=== PATIENT | female | born 1970 | race Caucasian/White ===

== ENCOUNTER 2020-03-20 10:11 | Outpatient (REF) | payer OTHER, SELFPAY | END 2020-03-20 10:12 | disposition home or self-care (01) | LOC: HO.LNP 10:11 | PROVIDERS: PCP Internal Medicine; Referring Provider Internal Medicine; Visit Provider Nurse Practitioner Gerontology | DX: E11.22 Type 2 diabetes mellitus with diabetic chronic kidney disease (principal); E11.42 Type 2 diabetes mellitus with diabetic polyneuropathy; Z79.1 Long term (current) use of non-steroidal anti-inflammatories (NSAID); Z71.3 Dietary counseling and surveillance | CPT/HCPCS: 82947; 95250; 99213 ==

== ENCOUNTER 2020-03-23 14:07 | Outpatient (RCR) | payer OTHER, SELFPAY | END 2020-08-20 11:06 | disposition home or self-care (01) | LOC: HO.WCC 14:07 | PROVIDERS: PCP Internal Medicine; Visit Provider Physician Assistant | DX: Z09 Encounter for follow-up examination after completed treatment for conditions other than malignant neoplasm (principal); E11.51 Type 2 diabetes mellitus with diabetic peripheral angiopathy without gangrene; E11.40 Type 2 diabetes mellitus with diabetic neuropathy, unspecified; Z79.4 Long term (current) use of insulin; Z89.429 Acquired absence of other toe(s), unspecified side; Z86.31 Personal history of diabetic foot ulcer | CPT/HCPCS: 11042; 15275; 99212; 99213; Q4186 ==

== ENCOUNTER → 2020-04-03 12:19 | Outpatient (BNVA) | payer OTHER, SELFPAY | PROVIDERS: PCP Internal Medicine; Referring Provider Internal Medicine; Visit Provider Nurse Practitioner Gerontology | DX: E11.22 Type 2 diabetes mellitus with diabetic chronic kidney disease (principal); I12.9 Hypertensive chronic kidney disease with stage 1 through stage 4 chronic kidney disease, or unspecified chronic kidney disease; N18.30 Chronic kidney disease, stage 3 unspecified; E11.42 Type 2 diabetes mellitus with diabetic polyneuropathy; Z79.4 Long term (current) use of insulin; E78.5 Hyperlipidemia, unspecified; E55.9 Vitamin D deficiency, unspecified; E66.01 Morbid (severe) obesity due to excess calories; Z68.43 Body mass index [BMI] 50.0-59.9, adult | CPT/HCPCS: 82947; 99214 ==

== ENCOUNTER 2020-04-09 10:02 | Outpatient (REF) | payer OTHER, SELFPAY ==
[2020-04-09 10:50] LABS: Blood Urea Nitrogen 23 mg/dL (9-16); Estimated Glomerular Filt Rate 37
--- NOTE | 2020-04-09 11:15 | MR_ITS ---
EXAMINATION: MRI OF THE RIGHT FOOT WITH AND WITHOUT CONTRAST CLINICAL INFORMATION: Swelling, infection, rule out osteomyelitis of the great toe. COMPARISON: 08/21/2019 TECHNIQUE: Multiplanar MR imaging was obtained through the right foot on a 1.5 Valentina magnet before and after intravenous administration of Gadavist. 10 mL was administered. FINDINGS: The distal phalanx of the 2nd toe and the entire 3rd toe are surgically absent. There is soft tissue edema signal and swelling at the great toe. Dorsomedially, there is a small focus of subcutaneous gas which may correspond to a site of a wound. No fluid collections are identified in this region. Additional skin wound may be present at the plantar aspect of the distal phalanx. There is mild marrow edema signal in the distal phalanx of the great toe. Bone marrow signal is normal on T1-weighted images without evidence of osteomyelitis. There is a fluid-containing adventitious bursa at the plantar aspect of the 5th metatarsal head measuring 2.5 x 2.5 x 0.5 cm. No significant enhancement in this region on postcontrast images. This is most consistent with adventitious bursitis. There is a small adventitious bursa at the plantar aspect of the 5th metatarsal head without associated fluid signal to indicate bursitis. There is [id number] osteoarthritis of the 5th MTP joint with nonuniform articular cartilage loss and marginal osteophytes. Mild multifocal osteoarthritis is also present in the interphalangeal joints. There is more pronounced, moderate to severe osteoarthritis in the midfoot at the imaged portions of the naviculocuneiform and tarsometatarsal joints. Diffuse fatty atrophy is apparent within the intrinsic foot musculature. No tenosynovitis. MR/MR foot RT wo/w con IMPRESSION: Subcutaneous soft tissue swelling and edema at the great toe with a probable small ulceration distally. No evidence of abscess or underlying osteomyelitis. Adventitious bursitis at the plantar margin of the 5th metatarsal head. Fatty replacement of the intrinsic foot musculature, commonly seen in the setting of diabetes. 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
== END 2020-04-09 10:03 | disposition home or self-care (01) ==
LOC: HO.MRI 10:02
PROVIDERS: PCP Internal Medicine; Visit Provider Plastic Surgery
DX: E11.621 Type 2 diabetes mellitus with foot ulcer (principal)
CPT/HCPCS: 73720; 82565; 84520

== ENCOUNTER 2020-04-21 07:39 | Outpatient (REF) | payer OTHER, SELFPAY ==
--- NOTE | 2020-04-21 08:27 | US_ITS ---
EXAMINATION: US ABDOMEN COMPLETE CLINICAL INFORMATION: Upper abdominal pain. COMPARISON: None TECHNIQUE: Real-time imaging of the abdominal viscera. FINDINGS: PANCREAS: Normal. ABDOMINAL AORTA: The proximal, mid, and distal segments are normal in caliber. INFERIOR VENA CAVA: Visualized portions are normal. LIVER: The liver is enlarged in size with increased echogenicity. The liver contour is normal. Right lobe measures 21.4 cm in length. No focal hepatic lesion. There is no intrahepatic biliary duct dilatation seen. GALLBLADDER: The gallbladder is physiologically distended without evidence of pericholecystic fluid. There is an echogenic stone measuring 6.4 x 2.4 x 3.0 cm. COMMON BILE DUCT: Normal in caliber measuring 0.5 cm in diameter. RIGHT KIDNEY: Normal. No hydronephrosis. No renal calculi or focal parenchymal lesions. The kidney measures 13.1 cm in maximum dimension. LEFT KIDNEY: Normal. No hydronephrosis. No renal calculi or focal parenchymal lesions. The kidney measures 13.5 cm in maximum dimension. SPLEEN: The spleen measures 11.4 cm in maximum dimension. A small splenule measures 1.2 x 1.1 x 1.4 cm. FREE FLUID: None. US/US abdomen complete IMPRESSION: Solitary large impacted gallstone visualized without wall thickening. Enlarged right hepatic lobe. Rest of the abdominal ultrasound is unremarkable.
== END 2020-04-21 07:40 | disposition home or self-care (01) ==
LOC: HO.US 07:39
PROVIDERS: PCP Internal Medicine; Visit Provider Family Medicine
DX: R10.10 Upper abdominal pain, unspecified (principal)
CPT/HCPCS: 76700

== ENCOUNTER → 2020-06-23 08:22 | Outpatient (BNVA) | payer OTHER, SELFPAY | PROVIDERS: PCP Internal Medicine; Visit Provider Nurse Practitioner Gerontology | DX: E11.42 Type 2 diabetes mellitus with diabetic polyneuropathy (principal); E11.22 Type 2 diabetes mellitus with diabetic chronic kidney disease; I12.9 Hypertensive chronic kidney disease with stage 1 through stage 4 chronic kidney disease, or unspecified chronic kidney disease; N18.30 Chronic kidney disease, stage 3 unspecified; E78.5 Hyperlipidemia, unspecified; E55.9 Vitamin D deficiency, unspecified; E66.01 Morbid (severe) obesity due to excess calories; Z68.43 Body mass index [BMI] 50.0-59.9, adult | CPT/HCPCS: 82947; 99212 ==

== ENCOUNTER 2020-06-26 10:17 | Emergency (ER) | payer OTHER, SELFPAY ==
[2020-06-26 10:48] VITALS: BP 139/60; PULSE 73; RESP 16; TEMP 36.7; O2SAT 96; BMI 49.7
--- NOTE | 2020-06-26 11:14 | XR_ITS ---
EXAMINATION: XR KNEE, LEFT CLINICAL INFORMATION: Fall, trauma, pain COMPARISON: None TECHNIQUE: Four views of the left knee. FINDINGS: There is no fracture or dislocation or suprapatellar effusion. Hoffa's fat pad appears normal. There is spurring at the proximal anterior tubercle, near the patellar tendon insertion. There is no joint narrowing or erosive change or definite chondrocalcinosis. XR/XR knee LT 4V IMPRESSION: No fracture or dislocation.
--- NOTE | 2020-06-26 11:14 | XR_ITS ---
EXAMINATION: XR ELBOW, LEFT CLINICAL INFORMATION: Fall, trauma, pain COMPARISON: None TECHNIQUE: AP, lateral, and oblique views of the left elbow. FINDINGS: There is no fracture, dislocation, or elbow capsular effusion. No joint narrowing or erosive change. There is small medial epicondylar spur. XR/XR elbow LT min 3V IMPRESSION: No fracture or dislocation.
--- NOTE | 2020-06-26 11:14 | XR_ITS ---
EXAMINATION: XR SHOULDER, LEFT CLINICAL INFORMATION: Fall, posterior left shoulder pain. COMPARISON: Radiographs left shoulder 09/29/2010 TECHNIQUE: The left shoulder is imaged in 5 views. FINDINGS: There is no fracture or dislocation. The acromioclavicular alignment is normal. Again, there is some spurring from the superior lateral acromium. There are no rotator cuff calcifications. The left lung apex appears clear with no pneumothorax or pleural reaction. XR/XR shoulder LT min 2V IMPRESSION: No fracture or dislocation.
[2020-06-26] MEDS: oxyCODONE HCl Immed Release 5 MG TABLET PO (11:44)
--- NOTE | 2020-06-26 12:26 | ED.FALL ---
HPI - Fall General Chief Complaint: Fall Stated Complaint: fall Time Seen by Provider: 06/26/20 10:53 Source: patient Mode of arrival: ambulatory Limitations: language barrier (Arabic-speaking) History of Present Illness HPI Narrative: 50-year-old female presenting to the ED after mechanical fall prior to arrival when she was going down the steps thought she was at the end of the steps and missed the last step falling forward landing on her left shoulder/elbow/knee. Denies head injury or loss of consciousness or being on any blood thinners. Denies any preceding symptoms prior to the fall such as dizziness, lightheadedness, changes in vision, jaw pain, nausea/vomiting, shortness of breath, chest pain, dyspnea on exertion, orthopnea, and abdominal pain, back pain, diarrhea or any other symptoms complaints or concerns at this time. Related Data Home Medications Medication Instructions Recorded Confirmed aspirin 81 mg tablet,delayed 81 mg PO DAILY 03/20/20 04/03/20 release bupropion HCl 300 mg 24 hr tablet, 300 mg PO QAM 03/20/20 04/03/20 extended release cephalexin 500 mg capsule 500 mg PO BID 03/20/20 04/03/20 cholecalciferol (vitamin D3) 50 2,000 unit PO DAILY cap 03/20/20 04/03/20 mcg (2,000 unit) capsule docusate sodium 100 mg capsule 100 mg PO DAILY 03/20/20 04/03/20 escitalopram oxalate 10 mg tablet 10 mg PO DAILY 03/20/20 04/03/20 gabapentin 300 mg capsule 300 mg PO BID 03/20/20 04/03/20 insulin glargine U-300 conc 300 46 unit SUBCUT DAILY ml 03/20/20 04/03/20 unit/mL (3 mL) subcutaneous pen lisinopril 10 mg tablet 10 mg PO DAILY 03/20/20 04/03/20 omeprazole 20 mg capsule,delayed 20 mg PO DAILY 03/20/20 04/03/20 release oxcarbazepine 300 mg tablet 300 mg PO BID 03/20/20 04/03/20 sennosides 8.6 mg tablet 17.2 mg PO BEDTIME tab 03/20/20 04/03/20 simvastatin 10 mg tablet 10 mg PO DAILY 03/20/20 04/03/20 lancets 33 gauge #100 ea 06/23/20 06/23/20 zolpidem 10 mg tablet 10 mg PO BEDTIME PRN 06/23/20 06/23/20 Previous Rx's Medication Instructions Recorded insulin aspart U-100 100 unit/mL 8 unit SUBCUT TID #15 ml 06/23/20 (3 mL) subcutaneous pen semaglutide 1 mg/dose (2 mg/1.5 1 mg SUBCUT QWEEK #3 ml 06/23/20 mL) subcutaneous pen injector ibuprofen 800 mg PO Q8H PRN #10 tab 06/26/20 oxycodone-acetaminophen [Percocet] 1 tab PO Q6H PRN #10 tab 06/26/20 Allergies Allergy/AdvReac Type Severity Reaction Status Date / Time No Known Allergies Allergy Unknown Verified 06/23/20 08:48 Review of Systems Review of Systems: Constitutional : No Fever, No Chills ENT/Mouth : No Ear Pain, No Hoarseness, No sore throat Eyes: No Eye Pain, No Swelling, No Redness, No Foreign Body Cardiovascular : No Chest Pain, No SOB Respiratory : No Cough, No Dyspnea Gastrointestinal : No Nausea, No Vomiting, No Diarrhea, No abdominal Pain Genitourinary : No Dysuria, No Hematuria Musculoskeletal : + joint pain, No Myalgias, No Joint Swelling Skin : No Skin lacerations, No rash Neuro : No Weakness, No Numbness, No Paresthesias, No Loss of Consciousness, No Dizziness, No Headache Psych : No Anxiety/Panic, No Depression Heme/Lymph: no easy bruising, no Lymphadenopathy Endocrine : No Polyuria, No Polydipsia Yes all other systems are reviewed and are negative [facility] Past Medical History Attestation statement: The following information was validated with the patient. Medical History BMI 50.0-59.9, adult Charcot foot due to diabetes mellitus Chronic kidney disease, stage 3 Depression Diabetic polyneuropathy Hyperlipidemia LDL goal <100 Hypertension Morbid obesity due to excess calories Type 2 diabetes mellitus with chronic kidney disease Vitamin D deficiency Surgical History History of partial amputation of toe History of partial ray amputation of third toe of right foot History of total hysterectomy with bilateral salpingo-oophorectomy (BSO) Hx of colonoscopy Hx of wisdom tooth extraction Family History Family History Father Type 2 diabetes mellitus Mother Type 2 diabetes mellitus Diverticulitis Hypertension Social History Social History Household Members: Spouse and Children Smoking Status: Never smoker Advance Directives: No Advance Directives Information Provided: Yes Physical Exam Vital Signs: Vital Signs: Last Vital Signs Temp 98.0 F 06/26/20 10:48 Pulse 73 06/26/20 10:48 Resp 16 06/26/20 10:48 BP 139/60 06/26/20 10:48 Pulse Ox 96 06/26/20 10:48 Body Mass Index 49.7 Vital signs have been reviewed as normal and appeared to be correct. Blood pressure normal. Heart rate normal. Respiration rate normal. Temperature normal. Oxygen saturation normal. Appearance: Alert. Oriented X3. No acute distress. Head: Normal external exam. Normocephalic. Atraumatic. Able to rotate head bilaterally. Eyes: PERRLA. EOMI. No nystagmus noted. Conjunctiva and sclera normal. Eyelids normal. Corneal reflex normal. ENT: EAC normal. TM's Normal. Hearing normal. Pharynx normal. Uvula midline. tongue midline. Moist mucous membranes. No trismus noted. No drooling noted. No muffled voice noted. Neck: Normal inspection. Neck supple. FROM. No adenopathy. No meningeal signs. CVS: Normal heart rate and rhythm. Heart sound normal. No murmurs noted. Pulses normal throughout. Respiratory: No respiratory distress. Painless inspiration. Breath sounds normal. No wheezes/rales/rhonchi noted. Chest nontender. No accessory muscle usage noted or decreased air movement noted. Abdomen: Soft and nontender. Bowel sounds normal in all 4 quadrants. No distention noted. No organomegaly noted. No visible injury noted. Back: No CVA tenderness. Full range of motion noted. Skin: Skin warm and dry. Normal skin color. Normal skin turgor. No rashes/lesions/lacerations noted. Extremities: Patient with mild tenderness to palpation to left shoulder. Patient has full range of motion of the left shoulder/AC joint. No obvious deformities. Patient tender to palpation to left proximal forearm/elbow patient has full range of motion. No obvious deformities noted. Patient with mild tenderness to palpation to left knee at the patellar joint with mild soft tissue swelling and ecchymosis noted. No obvious deformities and full range of motion is noted. Patient has a normal steady gait. Otherwise all other Extremities exhibit normal range of motion and nontender. Able to shrug shoulders bilaterally and keep up against resistance. Neuro: Oriented X 3. No motor deficit. No sensory deficit. Reflexes normal. Moving all extremities. No focal motor deficits. Cranial nerves II-XI intact bilaterally. Facial strength normal. Normal cognition. Speech normal. Gait normal. Strength 5/5 throughout. No pronator drift. No tremor noted. No fasciculations noted. Muscle tone normal throughout. No asterixis noted. Pxecke-ta-[id number] test normal. Heel to menchaca test normal. Tandem gait normal. Does not sway with eyes open. Romberg test negative. No rigidity noted. Course Course Course Narrative: 11:15am - 50-year-old female presenting to the ED after mechanical fall prior to arrival when she was going down the steps thought she was at the end of the steps and missed the last step falling forward landing on her left shoulder/elbow/knee. - Will obtain Xrays to left shoulder/elbow/forearm and knee provide 5 mg of oxycodone as patient requested for pain and re-evaluate. Reevaluation(s) Reevaluation #1: - x-ray to left shoulder/elbow/forearm and knee all within normal limits no evidence of any fractures patient most likely she has sprains will DC home with symptomatic treatment along with instructions return if any new or worsening symptoms to follow up with primary care provider. Patient's and agrees the plan. Time: 12:33 MDM - Fall Medical Records Attestation: I reviewed the patient's medical records. Imaging Data left shoulder : Attestation: I personally reviewed and interpreted this imaging study as follows: Radiologist's impression: XR/XR shoulder LT min 2V IMPRESSION: No fracture or dislocation. left elbow: Attestation: I personally reviewed and interpreted this imaging study as follows: Radiologist's impression: XR/XR elbow LT min 3V IMPRESSION: No fracture or dislocation. left knee: Attestation: I personally reviewed and interpreted this imaging study as follows: Radiologist's impression: XR/XR knee LT 4V IMPRESSION: No fracture or dislocation. Discharge Plan Discharge Clinical Impression: Fall, Sprain of left shoulder, Sprain of elbow, left, Left knee sprain, Contusion of knee, left Patient Disposition: Home, Self-Care Instructions: Sprain (ED), Musculoskeletal Pain (ED) Prescriptions: New ibuprofen 800 mg tablet 800 mg PO Q8H PRN (Reason: pain) Qty: 10 RF: 0 oxycodone-acetaminophen [Percocet] 5-325 mg tablet 1 tab PO Q6H PRN (Reason: pain) Qty: 10 RF: 0 No Action (DME) lancets 33 gauge misc See Rx Instructions ea .ROUTE .MEDSUPPLY Qty: 100 RF: 0 zolpidem 10 mg tablet 10 mg PO BEDTIME PRN (Reason: insomnia) RF: 0 insulin aspart U-100 [Novolog Flexpen U-100 Insulin] 100 unit/mL (3 mL) insulin pen 8 unit subcut TID Qty: 15 RF: 3 Ozempic 1 mg/dose (2 mg/1.5 mL) pen injector 1 mg subcut QWEEK Qty: 3 RF: 3 Toujeo Max U-300 SoloStar 300 unit/mL (3 mL) insulin pen 46 unit subcut DAILY RF: 0 cholecalciferol (vitamin D3) 50 mcg (2,000 unit) capsule 2,000 unit PO DAILY RF: 0 docusate sodium [DOK] 100 mg capsule 100 mg PO DAILY RF: 0 sennosides [Senna Laxative] 8.6 mg tablet 17.2 mg PO BEDTIME RF: 0 oxcarbazepine 300 mg tablet 300 mg PO BID RF: 0 omeprazole 20 mg capsule,delayed release(DR/EC) 20 mg PO DAILY RF: 0 simvastatin 10 mg tablet 10 mg PO DAILY RF: 0 escitalopram oxalate 10 mg tablet 10 mg PO DAILY RF: 0 bupropion HCl 300 mg tablet extended release 24 hr 300 mg PO QAM RF: 0 aspirin 81 mg tablet,delayed release (DR/EC) 81 mg PO DAILY RF: 0 gabapentin 300 mg capsule 300 mg PO BID RF: 0 lisinopril 10 mg tablet 10 mg PO DAILY RF: 0 cephalexin 500 mg capsule 500 mg PO BID RF: 0 Referrals: CastañedaEdwin Low MD [Primary Care Provider] - 2 days Print Language: Arabic
[2020-06-26 13:27] VITALS: BP 139/73; PULSE 71; RESP 16; TEMP 36.3
== END 2020-06-26 13:20 | disposition home or self-care (01) ==
PROVIDERS: Emergency Provider Emergency Medicine; PCP Internal Medicine
DX: S43.402A Unspecified sprain of left shoulder joint, initial encounter (principal); S53.402A Unspecified sprain of left elbow, initial encounter; S83.92XA Sprain of unspecified site of left knee, initial encounter; S80.02XA Contusion of left knee, initial encounter; I12.9 Hypertensive chronic kidney disease with stage 1 through stage 4 chronic kidney disease, or unspecified chronic kidney disease; E11.22 Type 2 diabetes mellitus with diabetic chronic kidney disease; N18.30 Chronic kidney disease, stage 3 unspecified; W10.9XXA Fall (on) (from) unspecified stairs and steps, initial encounter; Y93.9 Activity, unspecified; Y92.9 Unspecified place or not applicable; Y99.9 Unspecified external cause status; Z79.899 Other long term (current) drug therapy
CPT/HCPCS: 73030; 73080; 73564; 99283; 99284

== ENCOUNTER → 2020-07-21 09:36 | Outpatient (BNVA) | payer OTHER, SELFPAY | PROVIDERS: PCP Internal Medicine; Visit Provider Nurse Practitioner Gerontology | DX: Z76.89 Persons encountering health services in other specified circumstances (principal) | CPT/HCPCS: Q3014 ==

== ENCOUNTER → 2020-07-29 12:25 | Outpatient (BNVA) | payer OTHER, SELFPAY | PROVIDERS: PCP Internal Medicine; Visit Provider Dietitian, Registered ==

== ENCOUNTER → 2020-08-14 09:47 | Outpatient (BNVA) | payer OTHER, SELFPAY | PROVIDERS: PCP Internal Medicine; Visit Provider Dietitian, Registered ==

== ENCOUNTER 2020-08-28 07:46 | Outpatient (REF) | payer OTHER, SELFPAY ==
--- NOTE | ~2020-08-28 | MM_ITS ---
EXAMINATION: MM SCREENING DIGITAL BREAST TOMOSYNTHESIS, BILATERAL CLINICAL INFORMATION: Screening. Asymptomatic. Family history breast cancer maternal grandmother and aunt, paternal grandmother and aunt. The lifetime risk of breast cancer based on the Tyrer-Cuzick Model is 18%. COMPARISON: Mammography: 11/13/2018, 10/31/2017 TECHNIQUE: Digital breast tomosynthesis is performed in both the craniocaudal and mediolateral oblique views along with computer-aided detection (CAD). Synthesized 2D images are generated from the tomosynthesis. Additional bilateral CC views are provided. FINDINGS: The breasts are almost entirely fatty (ACR BI-RADS breast composition Category a). There are no significant masses, abnormal calcifications, or other abnormalities. The axilla and skin contours are unremarkable. MM/MM tomosynthesis screening BI IMPRESSION: No mammographic evidence of malignancy. ASSESSMENT: BI-RADS 1: Negative RECOMMENDATION: 1. Routine annual mammography screening. 2. The lifetime risk of breast cancer based on the Tyrer-Cuzick Model is 18%. Additional annual adjunct screening with breast MRI may be of benefit in women with a risk score of 20% or greater. This patient's information was entered into a reminder system with a target due date for their next mammogram.
== END 2020-08-28 07:47 | disposition home or self-care (01) ==
LOC: HO.MAMMO 07:46
PROVIDERS: PCP Internal Medicine; Visit Provider Internal Medicine
DX: Z12.31 Encounter for screening mammogram for malignant neoplasm of breast (principal)
CPT/HCPCS: 77063; 77067

== ENCOUNTER → 2020-09-01 10:39 | Outpatient (BNVA) | payer OTHER, SELFPAY | PROVIDERS: PCP Internal Medicine; Visit Provider Nurse Practitioner Gerontology | DX: I12.9 Hypertensive chronic kidney disease with stage 1 through stage 4 chronic kidney disease, or unspecified chronic kidney disease (principal); E11.42 Type 2 diabetes mellitus with diabetic polyneuropathy; E11.22 Type 2 diabetes mellitus with diabetic chronic kidney disease; N18.30 Chronic kidney disease, stage 3 unspecified; E66.01 Morbid (severe) obesity due to excess calories; Z68.42 Body mass index [BMI] 45.0-49.9, adult; E78.5 Hyperlipidemia, unspecified; E55.9 Vitamin D deficiency, unspecified; Z79.4 Long term (current) use of insulin | CPT/HCPCS: 82947; 99212 ==

== ENCOUNTER → 2020-09-11 10:42 | Outpatient (BNVA) | payer OTHER, SELFPAY | PROVIDERS: PCP Internal Medicine; Visit Provider Dietitian, Registered ==

== ENCOUNTER → 2020-10-22 09:51 | Outpatient (BNVA) | payer OTHER, SELFPAY | PROVIDERS: PCP Internal Medicine; Visit Provider Dietitian, Registered | DX: E11.22 Type 2 diabetes mellitus with diabetic chronic kidney disease (principal); N18.30 Chronic kidney disease, stage 3 unspecified; Z79.4 Long term (current) use of insulin | CPT/HCPCS: 97803 ==

== ENCOUNTER → 2020-11-18 08:41 | Outpatient (BNVA) | payer OTHER, SELFPAY | PROVIDERS: PCP Internal Medicine; Visit Provider Nurse Practitioner Gerontology | DX: E11.22 Type 2 diabetes mellitus with diabetic chronic kidney disease (principal); I12.9 Hypertensive chronic kidney disease with stage 1 through stage 4 chronic kidney disease, or unspecified chronic kidney disease; N18.30 Chronic kidney disease, stage 3 unspecified; E11.42 Type 2 diabetes mellitus with diabetic polyneuropathy; E78.5 Hyperlipidemia, unspecified; E55.9 Vitamin D deficiency, unspecified; E66.01 Morbid (severe) obesity due to excess calories; Z79.4 Long term (current) use of insulin; Z68.42 Body mass index [BMI] 45.0-49.9, adult | CPT/HCPCS: 82947; 99212 ==

== ENCOUNTER 2020-12-24 08:38 | Outpatient (REF) | payer OTHER, SELFPAY ==
[2020-12-24 10:31] LABS: Alanine Aminotransferase 16 U/L (0-31); Alkaline Phosphatase 99 U/L (39-117); Anion Gap 11 (12-20); Aspartate Amino Transferase 21 U/L (5-31); Bilirubin Total 0.3 mg/dL (0.0-1.0); Blood Urea Nitrogen 25 mg/dL (9-16); Carbon Dioxide 28 mmol/L (22-29); Chloride 104 mmol/L (96-108); Cholesterol 169 mg/dL; Estimated Glomerular Filt Rate 38; Glucose Fasting 138 mg/dL (60-99); HDL Cholesterol 67 mg/dL; LDL Cholesterol Calculated 86 mg/dl; Potassium 4.4 mmol/L (3.3-5.1); Sodium 139 mmol/L (135-145); Total Protein 7.1 g/dL (6.5-8.0); Triglycerides 83 mg/dL
[2020-12-24 10:32] LABS: Creatinine Urine 186.98 mg/dL; Microalbum/Creatinine Ratio Ur 10.6 ug/mg cr
[2020-12-25 07:06] LABS: LDL Cholesterol Direct 87 mg/dL (<100)
== END 2020-12-24 08:39 | disposition home or self-care (01) ==
LOC: HO.LAB 08:38
PROVIDERS: PCP Internal Medicine; Visit Provider Nurse Practitioner Gerontology
DX: E11.22 Type 2 diabetes mellitus with diabetic chronic kidney disease (principal); N18.9 Chronic kidney disease, unspecified
CPT/HCPCS: 36415; 80053; 80061; 82043; 83721

== ENCOUNTER → 2021-02-24 08:23 | Outpatient (BNVA) | payer OTHER, SELFPAY | PROVIDERS: PCP Internal Medicine; Visit Provider Nurse Practitioner Gerontology | DX: E11.22 Type 2 diabetes mellitus with diabetic chronic kidney disease (principal); I12.9 Hypertensive chronic kidney disease with stage 1 through stage 4 chronic kidney disease, or unspecified chronic kidney disease; N18.30 Chronic kidney disease, stage 3 unspecified; E11.42 Type 2 diabetes mellitus with diabetic polyneuropathy; E78.5 Hyperlipidemia, unspecified; E55.9 Vitamin D deficiency, unspecified; E66.01 Morbid (severe) obesity due to excess calories; Z68.42 Body mass index [BMI] 45.0-49.9, adult; Z79.4 Long term (current) use of insulin | CPT/HCPCS: 82947; 83036; 99212 ==

== ENCOUNTER → 2021-03-11 10:07 | Outpatient (BNVA) | payer OTHER, SELFPAY | PROVIDERS: PCP Internal Medicine; Visit Provider Surgery | DX: K80.20 Calculus of gallbladder without cholecystitis without obstruction (principal); E66.01 Morbid (severe) obesity due to excess calories; Z68.42 Body mass index [BMI] 45.0-49.9, adult | CPT/HCPCS: 99212 ==

== ENCOUNTER → 2021-03-22 09:37 | Outpatient (BNVA) | payer OTHER, SELFPAY | PROVIDERS: PCP Internal Medicine; Visit Provider Dietitian, Registered | DX: E11.22 Type 2 diabetes mellitus with diabetic chronic kidney disease (principal); N18.30 Chronic kidney disease, stage 3 unspecified; Z79.4 Long term (current) use of insulin | CPT/HCPCS: 97803 ==

== ENCOUNTER → 2021-05-27 08:38 | Outpatient (BNVA) | payer OTHER, SELFPAY | PROVIDERS: PCP Internal Medicine; Visit Provider Dietitian, Registered | DX: E11.22 Type 2 diabetes mellitus with diabetic chronic kidney disease (principal); N18.30 Chronic kidney disease, stage 3 unspecified; Z79.4 Long term (current) use of insulin | CPT/HCPCS: 97803 ==

== ENCOUNTER → 2021-07-02 08:30 | Outpatient (BNVA) | payer OTHER, SELFPAY | PROVIDERS: PCP Internal Medicine; Visit Provider Nurse Practitioner Gerontology | DX: E11.22 Type 2 diabetes mellitus with diabetic chronic kidney disease (principal); I12.9 Hypertensive chronic kidney disease with stage 1 through stage 4 chronic kidney disease, or unspecified chronic kidney disease; N18.30 Chronic kidney disease, stage 3 unspecified; E11.42 Type 2 diabetes mellitus with diabetic polyneuropathy; E78.5 Hyperlipidemia, unspecified; E55.9 Vitamin D deficiency, unspecified; E66.01 Morbid (severe) obesity due to excess calories; Z79.4 Long term (current) use of insulin; Z68.42 Body mass index [BMI] 45.0-49.9, adult | CPT/HCPCS: Q3014 ==

== ENCOUNTER → 2021-08-18 09:06 | Outpatient (BNVA) | payer OTHER, SELFPAY | PROVIDERS: PCP Internal Medicine; Visit Provider Nurse Practitioner Gerontology | DX: E11.42 Type 2 diabetes mellitus with diabetic polyneuropathy (principal); E11.22 Type 2 diabetes mellitus with diabetic chronic kidney disease; I12.9 Hypertensive chronic kidney disease with stage 1 through stage 4 chronic kidney disease, or unspecified chronic kidney disease; N18.30 Chronic kidney disease, stage 3 unspecified; E78.5 Hyperlipidemia, unspecified; E55.9 Vitamin D deficiency, unspecified; E66.01 Morbid (severe) obesity due to excess calories; Z79.4 Long term (current) use of insulin; Z68.42 Body mass index [BMI] 45.0-49.9, adult | CPT/HCPCS: 82947; 83036; 99212 ==

== ENCOUNTER 2021-08-30 12:09 | Outpatient (REF) | payer OTHER, SELFPAY ==
--- NOTE | ~2021-08-30 | MM_ITS ---
EXAMINATION: MM SCREENING DIGITAL BREAST TOMOSYNTHESIS, BILATERAL CLINICAL INFORMATION: Screening. Asymptomatic. The lifetime risk of breast cancer based on the Tyrer-Cuzick Model is 25%. COMPARISON: Mammography: 08/28/2020, 11/13/2018, 10/31/2017 TECHNIQUE: Digital breast tomosynthesis is performed in both the craniocaudal and mediolateral oblique views along with computer-aided detection (CAD). Synthesized 2D images are generated from the tomosynthesis. Additional bilateral CC and additional left MLO views are provided. FINDINGS: The breasts are almost entirely fatty (ACR BI-RADS breast composition Category a). There are no significant masses, abnormal calcifications, or other abnormalities. There is a small node overlying the posterior 1:00 right breast similar to 2018. Bilateral axilla and skin contours are unremarkable. MM/MM tomosynthesis screening BI IMPRESSION: No mammographic evidence of malignancy. ASSESSMENT: BI-RADS 2: Benign RECOMMENDATION: 1. Routine annual mammography screening. 2. The lifetime risk of breast cancer based on the Tyrer-Cuzick Model is 25%. Additional annual adjunct screening with breast MRI may be of benefit in women with a risk score of 20% or greater. This patient's information was entered into a reminder system with a target due date for their next mammogram.
== END 2021-08-30 12:10 | disposition home or self-care (01) ==
LOC: HO.MAMMO 12:09
PROVIDERS: PCP Internal Medicine; Visit Provider Internal Medicine
DX: Z12.31 Encounter for screening mammogram for malignant neoplasm of breast (principal)
CPT/HCPCS: 77063; 77067

== ENCOUNTER → 2021-09-17 08:48 | Outpatient (BNVA) | payer OTHER, SELFPAY | PROVIDERS: PCP Internal Medicine; Visit Provider Registered Nurse Diabetes Educator | DX: Z13.89 Encounter for screening for other disorder (principal) ==

== ENCOUNTER → 2021-10-22 09:13 | Outpatient (BNVA) | payer OTHER, SELFPAY | PROVIDERS: PCP Internal Medicine; Visit Provider Registered Nurse Diabetes Educator | DX: E11.22 Type 2 diabetes mellitus with diabetic chronic kidney disease (principal); N18.30 Chronic kidney disease, stage 3 unspecified; Z79.4 Long term (current) use of insulin | CPT/HCPCS: 99211 ==

== ENCOUNTER → 2021-11-23 11:21 | Outpatient (BNVA) | payer OTHER, SELFPAY | PROVIDERS: PCP Internal Medicine; Visit Provider Registered Nurse Diabetes Educator | DX: E11.22 Type 2 diabetes mellitus with diabetic chronic kidney disease (principal); N18.30 Chronic kidney disease, stage 3 unspecified; Z79.4 Long term (current) use of insulin | CPT/HCPCS: 99211 ==

== ENCOUNTER 2021-11-24 09:35 | Outpatient (REF) | payer OTHER, SELFPAY ==
--- NOTE | ~2021-11-24 | XR_ITS ---
EXAMINATION: BILATERAL WRIST X-RAY CLINICAL INFORMATION: Pain COMPARISON: None TECHNIQUE: 4 views of both wrists FINDINGS: There is borderline bilateral ulnar minus variance. Bone alignment is normal. No fracture or dislocation is seen. Joint spaces and soft tissues are normal. XR/XR wrist RT 2V IMPRESSION: Borderline bilateral ulnar minus variance. Otherwise unremarkable exam.
--- NOTE | ~2021-11-24 | XR_ITS ---
EXAMINATION: BILATERAL WRIST X-RAY CLINICAL INFORMATION: Pain COMPARISON: None TECHNIQUE: 4 views of both wrists FINDINGS: There is borderline bilateral ulnar minus variance. Bone alignment is normal. No fracture or dislocation is seen. Joint spaces and soft tissues are normal. XR/XR wrist LT 2V IMPRESSION: Borderline bilateral ulnar minus variance. Otherwise unremarkable exam.
--- NOTE | ~2021-11-24 | XR_ITS ---
EXAMINATION: XR FOOT, RIGHT CLINICAL INFORMATION: Pain COMPARISON: Previous right foot x-ray December 2019 TECHNIQUE: AP, lateral, and oblique views of the right foot. FINDINGS: There is amputation of the third toe. There is partial amputation of the distal second toe. Bone alignment is normal. No fracture or dislocation is seen. No x-ray evidence of osteomyelitis is seen. There are degenerative changes of the midfoot. There are large calcaneal spurs. XR/XR foot RT 2V IMPRESSION: Severe arthritis of the midfoot. Large calcaneal spurs. Amputation of the third toe and partial amputation of the second toe.
== END 2021-11-24 09:36 | disposition home or self-care (01) ==
LOC: HO.XRAY 09:35
PROVIDERS: PCP Internal Medicine; Visit Provider Internal Medicine
DX: M79.671 Pain in right foot (principal); M25.531 Pain in right wrist; M25.532 Pain in left wrist
CPT/HCPCS: 73100; 73620

== ENCOUNTER → 2022-02-22 11:16 | Outpatient (BNVA) | payer OTHER, SELFPAY | PROVIDERS: PCP Internal Medicine; Visit Provider Registered Nurse Diabetes Educator | DX: E11.22 Type 2 diabetes mellitus with diabetic chronic kidney disease (principal); N18.30 Chronic kidney disease, stage 3 unspecified; Z79.4 Long term (current) use of insulin | CPT/HCPCS: 99211 ==

== ENCOUNTER → 2022-04-05 08:55 | Outpatient (BNVA) | payer OTHER, SELFPAY | PROVIDERS: PCP Internal Medicine; Visit Provider Registered Nurse Diabetes Educator | DX: E11.22 Type 2 diabetes mellitus with diabetic chronic kidney disease (principal); E11.42 Type 2 diabetes mellitus with diabetic polyneuropathy; N18.30 Chronic kidney disease, stage 3 unspecified; Z79.4 Long term (current) use of insulin | CPT/HCPCS: 99211 ==

== ENCOUNTER → 2022-05-10 21:12 | Outpatient (REF) | payer OTHER, SELFPAY | LOC: HO.SL 21:12 | PROVIDERS: PCP Internal Medicine; Visit Provider Internal Medicine | DX: Z13.89 Encounter for screening for other disorder (principal) ==

== ENCOUNTER → 2022-06-01 11:57 | Outpatient (BNVA) | payer OTHER, SELFPAY | PROVIDERS: PCP Internal Medicine; Visit Provider Registered Nurse Diabetes Educator | DX: E11.22 Type 2 diabetes mellitus with diabetic chronic kidney disease (principal); N18.30 Chronic kidney disease, stage 3 unspecified; Z79.4 Long term (current) use of insulin | CPT/HCPCS: 99211 ==

== ENCOUNTER → 2022-06-30 11:27 | Outpatient (BNVA) | payer OTHER, SELFPAY | PROVIDERS: PCP Internal Medicine; Visit Provider Registered Nurse Diabetes Educator | DX: E11.22 Type 2 diabetes mellitus with diabetic chronic kidney disease (principal); N18.30 Chronic kidney disease, stage 3 unspecified; Z79.4 Long term (current) use of insulin | CPT/HCPCS: 99211 ==

== ENCOUNTER → 2022-08-10 12:33 | Outpatient (BNVA) | payer OTHER, SELFPAY | PROVIDERS: PCP Internal Medicine; Visit Provider Internal Medicine Cardiovascular Disease | DX: R07.9 Chest pain, unspecified (principal); I10 Essential (primary) hypertension | CPT/HCPCS: 93005; 99202 ==

== ENCOUNTER → 2022-08-26 09:51 | Outpatient (REF) | payer OTHER, SELFPAY ==
--- NOTE | 2022-08-26 09:54 | CA_ITS ---
Transthoracic Echocardiogram Patient (Last, First, Middle): Dora Fernandez, Gender: Female Date of : 1970 Age: 52 Procedure Date: 08/26/2022 Procedure Type: Transthoracic Echocardiogram Location: OP Height: 175.26 cm Weight: 151.5 kg BSA: 2.57 m2 Heart Rate: 88 bpm BP: 122 / 84 mmHg [employer]p [employer]: ANTON Referring MD: Simon Penaloza MD Symptoms: R07.9 - Chest pain, unspecified Study Quality: Adequate w contrast ECG Rhythm: Sinus Conclusions: - The left ventricular systolic function is normal. The calculated ejection fraction is 56% by biplane method. - No obvious valvular pathology seen on this study. Findings Procedure Information Contrast agent, definity, is being given per protocol without apparent complications. Left Ventricle Normal left ventricular cavity size. There is normal left ventricular wall thickness. The left ventricular systolic function is normal. The calculated ejection fraction is 56% by biplane method. There is no evidence of regional wall motion abnormalities. Diastolic function is normal for age. Right Ventricle The right ventricle was not well visualized. There is normal right ventricular systolic function. Atria Both atria are normal in size. Aortic Valve There is a normal trileaflet aortic valve. There is no aortic valve stenosis. There is no aortic valve regurgitation. Mitral Valve The mitral valve appears normal. There is no mitral valve regurgitation. There is no mitral valve stenosis. Pulmonic Valve The pulmonic valve is likely normal. Tricuspid Valve There is trace tricuspid valve regurgitation. There is no evidence of pulmonary hypertension. Great Vessels The asc aorta is normal in size. Venous The inferior vena cava is normal in size and collapses greater than 50% with inspiration. Pericardium/Pleural There is no evidence of pericardial effusion. Prior Study Comparison No significant change compared to prior study dated: 11/20/2006. Recommendations, Care & Conclusions No obvious valvular pathology seen on this study. Measurements 2D Linear Measurements IVSd: 0.75 0.6-0.9/0.6-1.0 cm LVIDd: 5.92 3.9-5.3/4.2-5.9 cm LVIDd Index: 2.30 2.4-3.2/2.2-3.1 cm/m2 LVIDs: 4.18 2.0-3.6 cm LVPWd: 0.89 0.7-1.1 cm LA Diam: 3.40 2.7-3.8/3.0-4.0 cm LAIDs Index: 1.32 1.5-2.3 cm/m2 LV Mass: 234.48 67-162/88-224 g LV Mass Index: 91.24 43-95/49-115 g/m2 LVOT Diam: 2.20 3.0+(-)1.3 cm 2D Systolic Function EF 4C: 51.30 >55% EF 2C: 56.20 >55% EF BiP: 55.90 >55% Mitral Valve MV Pk E: 0.97 MV PK A: 0.84 MV Decel Time: 210.00 E/A: 1.20 E'Lateral: 12.90 E'Medial: 9.68 E/E' Med: 10.00 E/E' Lat: 7.50 PHT: 62.00 MVA PHT: 3.55 Decel [place]: 4.60 Aortic Valve AoV Pk Osorio: 1.34 AoV Mn Osorio: 0.97 AoV VTI: 0.31 AoV Pk Grad: 7.00 Aov Mn Grad: 4.00 ODILIA Cont.VTI: 2.89 LVOT LVOT Pk Osorio: 1.01 LVOT Mn Osorio: 0.73 LVOT VTI: 0.24 LVOT Pk Grad: 4.00 LVOT Mn Grad: 2.00 LVOT Diam: 2.20 LVOT Area: 3.80 Diastolic Function MV Pk E: 0.97 MV Pk A: 0.84 E/A: 1.20 E'Medial: 9.68 E/E' Med: 10.00 E' Laterial: 12.90 E/E' Lat: 7.50 Right Ventricle TAPSE (mm): 23.10 TVS' Osorio: 10.30 Tricuspid Valve RA Press: 3.00 Great Vessels Aorta Sinus of Valsalva: 3.10 2.0-3.5 cm Ao Asc: 2.90 2.1-3.4 cm Updated in Other Vendor System with Status of Final Pete Mckeon MD electronically signed on 08/28/2022 11:40:11 AM with status of Final
== END ==
LOC: HO.CARD 09:51
PROVIDERS: Visit Provider Internal Medicine Cardiovascular Disease
DX: R07.9 Chest pain, unspecified (principal)
CPT/HCPCS: 93306; Q9957

== ENCOUNTER → 2022-09-01 09:56 | Outpatient (REF) | payer OTHER, SELFPAY ==
--- NOTE | ~2022-09-01 | NM_ITS ---
Myocardial perfusion study Indication: Exertional chest pain to evaluate for myocardial ischemia Technique: The patient was brought in for a Lexiscan perfusion study on 09/01/2022. Patient performed low-level exercise and was injected 0.4 mg of Lexiscan intravenously. Within a minute of injection, 35 mCi of sestamibi was given intravenously. Images were obtained using the SPECT gamma camera interlaced with the gating device. Images were obtained in supine position. Resting perfusion study was performed on 09/02/2022. Patient was administered 35 mCi of sestamibi intravenously at rest. Images were then obtained in supine position. Images obtained with and without CT attenuation. Total DLP 177 mGy-cm. Images were processed with the software and compared side to side in short axis, horizontal long axis and vertical long axis views. Findings: The stress perfusion study showed large area of mildly to moderately reduced uptake in the anterior, apical, apical and anterolateral wall of the LV myocardium. Remainder of the LV myocardium is normally perfused. Attenuation corrected images also shows mildly reduced uptake in the anterior, anteroseptal and anterolateral wall of the LV myocardium.. The gated study shows normal LV systolic function with calculated LVEF of 46%. LV cavity is mildly dilated size. The gated study shows normal systolic wall thickening and contraction of segments. Resting study shows normal uptake of radiotracer in all segments of LV myocardium on non attenuated as well as attenuated corrected images. Gating at rest reveals normal systolic wall motion with ejection fraction at 55%. The findings are consistent with large area of mild to moderate intensity LAD territory ischemia. NM/NM anitha perf SPECT rest & str Impression: 1. Myocardial perfusion imaging study shows proximal LAD territory ischemia 2. Gated LVEF is 46% with stress and 51% with rest 3. Transient ischemic dilatation present EKG is nondiagnostic for ischemia
--- NOTE | 2022-09-01 10:00 | CA_ITS ---
Acquisition Time: 2022-09-01 10:42:06 Total Exercise Time: 00:02:00 Test Indications: CP Medications: SEE H Protocol: LEXISCAN Max HR: 117 BPM 70% of Pred: 166 BPM Max BP: 118/062 mmHG Max Work Load: 1.0 METS Pharmacological stress test with Lexiscan injection while sitting and kickinbg legs, without anignal symptoms, with isolated PACs with brief runs of atrial tach noted, normotensive response to injection, with non-diagnositic EKG for ischemia. In recovery frequent PACs noted, treated with Aminophylline 75mg IVP to reverse Lexiscan without improvement. Nuclear images pending. Test reviewed with Dr. Gordillo. Referred By: Simon Penaloza Overread By: VALARIE PRIDE
== END ==
LOC: HO.CARD 09:56
PROVIDERS: Visit Provider Internal Medicine Cardiovascular Disease
DX: R07.9 Chest pain, unspecified (principal)
CPT/HCPCS: 78452; 93017; A9500; J0280; J2785

== ENCOUNTER → 2022-09-05 15:29 | Outpatient (BNVA) | payer OTHER, SELFPAY | PROVIDERS: PCP Internal Medicine; Visit Provider Internal Medicine Cardiovascular Disease | DX: R07.9 Chest pain, unspecified (principal) | CPT/HCPCS: 99212 ==

== ENCOUNTER 2022-09-06 09:38 | Outpatient (REF) | payer OTHER, SELFPAY ==
[2022-09-06 10:35] LABS: Hematocrit 39.8 % (37.0-47.0); Hemoglobin 12.6 g/dl (12.0-16.0); Mean Corpuscular HGB Conc 31.7 g/dl (31.0-35.0); Mean Corpuscular Hemoglobin 27.3 pg (27.0-33.0); Mean Corpuscular Volume 86.3 fL (80.0-98.0); Mean Platelet Volume 11.3 fL (9.4-12.3); Platelet Count 237 X10*3/uL (160-400); Red Blood Count 4.61 X10*6/uL (4.20-5.50); Red Cell Distribution Width 12.7 % (11.0-16.0); White Blood Count 7.4 X10*3/uL (4.8-10.8)
[2022-09-06 10:42] LABS: INTERNATIONAL NORM RATIO 0.9 (0.9-1.1); Prothrombin Time 10.4 SEC (10.0-13.1)
[2022-09-06 11:42] LABS: Anion Gap 14 (12-20); Blood Urea Nitrogen 24 mg/dL (9-16); Calcium 9.2 mg/dL (8.4-10.2); Carbon Dioxide 27 mmol/L (22-29); Chloride 104 mmol/L (96-108); Estimated Glomerular Filt Rate 42; Glucose Random 191 mg/dL (60-115); Potassium 4.6 mmol/L (3.3-5.1); Sodium 140 mmol/L (135-145)
[2022-09-06 12:41] LABS: Creatinine Urine 163.52 mg/dL; Total Protein Urine Random < 7 mg/dL (<12)
== END 2022-09-06 09:39 | disposition home or self-care (01) ==
LOC: HO.LAB 09:38
PROVIDERS: Absent Provider Internal Medicine Cardiovascular Disease; PCP Internal Medicine; Visit Provider Internal Medicine Hypertension Specialist
DX: R07.9 Chest pain, unspecified (principal); N18.31 Chronic kidney disease, stage 3a
CPT/HCPCS: 36415; 80048; 84156; 85027; 85610

== ENCOUNTER → 2022-09-26 15:19 | Outpatient (BNVA) | payer OTHER, SELFPAY | PROVIDERS: PCP Internal Medicine; Visit Provider Nurse Practitioner Family | DX: R07.9 Chest pain, unspecified (principal); E78.5 Hyperlipidemia, unspecified; E11.22 Type 2 diabetes mellitus with diabetic chronic kidney disease; I12.9 Hypertensive chronic kidney disease with stage 1 through stage 4 chronic kidney disease, or unspecified chronic kidney disease; N18.30 Chronic kidney disease, stage 3 unspecified; Z79.4 Long term (current) use of insulin; Z98.890 Other specified postprocedural states | CPT/HCPCS: 99212 ==

== ENCOUNTER → 2022-10-05 13:54 | Outpatient (BNVA) | payer OTHER, SELFPAY | PROVIDERS: PCP Internal Medicine; Visit Provider Internal Medicine | DX: R06.09 Other forms of dyspnea (principal); E66.2 Morbid (severe) obesity with alveolar hypoventilation; E11.22 Type 2 diabetes mellitus with diabetic chronic kidney disease; E11.42 Type 2 diabetes mellitus with diabetic polyneuropathy; I12.9 Hypertensive chronic kidney disease with stage 1 through stage 4 chronic kidney disease, or unspecified chronic kidney disease; N18.30 Chronic kidney disease, stage 3 unspecified; Z68.42 Body mass index [BMI] 45.0-49.9, adult; Z79.4 Long term (current) use of insulin | CPT/HCPCS: 99202 ==

== ENCOUNTER → 2022-10-25 11:18 | Outpatient (BNVA) | payer OTHER, SELFPAY | PROVIDERS: PCP Internal Medicine; Visit Provider Registered Nurse Diabetes Educator | DX: E11.22 Type 2 diabetes mellitus with diabetic chronic kidney disease (principal); E11.42 Type 2 diabetes mellitus with diabetic polyneuropathy; E11.610 Type 2 diabetes mellitus with diabetic neuropathic arthropathy; N18.30 Chronic kidney disease, stage 3 unspecified; E66.01 Morbid (severe) obesity due to excess calories; Z79.4 Long term (current) use of insulin | CPT/HCPCS: 99211 ==

== ENCOUNTER 2022-10-26 12:47 | Outpatient (REF) | payer OTHER, SELFPAY ==
--- NOTE | 2022-10-26 13:47 | PFT_ITS ---
INDICATION: Hyperventilation syndrome. SPIROMETRY: The FEV1 to FVC 74% with an FEV1 of 1.75 L, which is 54% predicted and an FVC of 2.36 L, which is 59% predicted. No significant response to bronchodilators noted. The maximum voluntary ventilation 57% predicted. LUNG VOLUMES: Total lung capacity 79% predicted with an expiratory reserve volume of 12% predicted. DIFFUSION CAPACITY: DLCO 79% predicted. COMPARISON: None. INTERPRETATION: No obstructive ventilatory defects, no significant response to bronchodilators noted, although looking at the flow volume loop, there is slight concavity to the expiratory limb suggesting obstructive physiology. Maximum voluntary ventilation 57% predicted suggesting moderate decrease secondary to likely deconditioning. Lung volumes do demonstrate a restrictive ventilatory defect consistent with mild restrictive lung disease. In part, this is due to elevated BMI with a decrease in the expiratory reserve volume of 12% predicted. There is also mild diffusion impairment that does correct to normal and correcting for the alveolar volume suggesting that it is related to hypo-expansion of her lungs. Clinical correlation warranted MD ESTELLE Uribe/MRAISA / [id number]
== END 2022-10-26 12:48 | disposition home or self-care (01) ==
LOC: HO.RESP 12:47
PROVIDERS: PCP Internal Medicine; Visit Provider Internal Medicine
DX: R06.09 Other forms of dyspnea (principal); E66.01 Morbid (severe) obesity due to excess calories
CPT/HCPCS: 94010; 94727

== ENCOUNTER → 2022-11-10 13:57 | Outpatient (BNVA) | payer OTHER, SELFPAY | PROVIDERS: PCP Internal Medicine; Visit Provider Internal Medicine | DX: R06.09 Other forms of dyspnea (principal); J98.4 Other disorders of lung; E66.01 Morbid (severe) obesity due to excess calories; Z68.43 Body mass index [BMI] 50.0-59.9, adult | CPT/HCPCS: 99212 ==

== ENCOUNTER 2022-12-27 14:39 | Inpatient (IN) | payer OTHER, SELFPAY ==
--- NOTE | ~2022-12-27 | MR_ITS ---
EXAMINATION: MR FOOT WITHOUT AND WITH CONTRAST, RIGHT CLINICAL INFORMATION: Possible osteomyelitis. COMPARISON: Multiple priors, most recent right foot CT dated 12/28/2022. TECHNIQUE: Multisequence MR imaging of the right foot was obtained before and after the IV administration of 10 mL Gadavist contrast in a high-field strength scanner. FINDINGS: Soft tissue ulceration/defect at the distal aspect of the 4th toe with skin thickening, subcutaneous edema, and postcontrast enhancement, consistent with acute cellulitis. No organized fluid collection or abscess formation. Significantly increased T2 and decreased T1 signal within the adjacent fourth distal phalanx where there is prominent postcontrast enhancement, consistent with acute osteomyelitis. No distal interphalangeal joint effusion or edema within the middle phalanx to suggest septic arthritis. Resection of the 3rd toe is redemonstrated. No additional marrow edema or enhancement. No metatarsal stress fracture. Diffuse full-thickness articular cartilage loss with bony remodeling, subchondral cystic change, and marginal osteophytes throughout the visualized midfoot. Edema and atrophy throughout the intrinsic musculature of the foot which can be seen in diabetic patients. The visualized flexor and extensor tendons are grossly intact. Intact Lisfranc ligament. MR/MR foot RT wo/w con IMPRESSION: 1. Soft tissue ulceration and cellulitis at the distal aspect of the fourth toe with acute osteomyelitis within the adjacent fourth distal phalanx. No evidence of septic arthritis. 2. Severe osteoarthritis throughout the visualized midfoot. 3. Resection of the third toe. 4. Edema and atrophy throughout the intrinsic musculature of the foot which can be seen in diabetic patients.
--- NOTE | ~2022-12-27 | CT_ITS ---
EXAMINATION: CT FOOT WITHOUT CONTRAST, RIGHT CLINICAL INFORMATION: Possible osteomyelitis. COMPARISON: Radiograph dated 12/27/2022 TECHNIQUE: Multidetector volumetric imaging was obtained through the right foot without contrast. Multiplanar reformatted images in coronal and sagittal orientations were submitted. This CT examination was performed using dose optimization techniques as appropriate, variously including the following: *Automated exposure control *Adjustment of mA and/or kV according to patient size (this includes techniques or standardized protocols for targeted exams where dose is matched to indication/reason for exam; i.e. extremities or head) *Use of iterative reconstruction technique DLP: 180 mGy-cm FINDINGS: The soft tissues are swollen at the fourth toe with focal subcutaneous gas at the distal tip. No clear findings of underlying acute osteolysis. Soft tissue swelling in the possible skin wound at the great toe distally without osteolysis at the phalanges. The second toe distal phalanx is absent, likely chronically absent. No acute osseous findings in this region. The third toe is surgically absent. No acute osseous findings are identified at the fifth toe. Soft tissues are diffusely swollen with subcutaneous edema. No additional foci of subcutaneous gas are identified aside from the focus at the fourth toe distal phalanx. No gas in the joints. No appreciable fluid collections, though sensitivity is limited by CT. Multifocal osteoarthritis is most pronounced in the midfoot at the second through fifth tarsometatarsal joints with nonuniform joint space narrowing, marginal osteophytes, s cortical remodeling, sclerosis, and fragmented osteophytes. This is also noted within the cuneiforms, lateral greater than medial). More mild to moderate multifocal osteoarthritis is present in the interphalangeal joints and MCP joints as well as the talocrural joint. Periosteal bone along the distal tibia posteriorly may be the result of an old syndesmotic ligament injury. Large enthesopathic spurs are present at the Achilles tendon insertion and plantar fascial origin on the calcaneus. There is significant soft tissue swelling and subcutaneous edema in the foot and ankle. Swelling and edema are most pronounced anteriorly. There is fatty replacement of the abductor digiti minimi. CT/CT foot RT wo IV con IMPRESSION: 1. Focal subcutaneous gas at the distal tip of the fourth toe, likely corresponding to the site of the skin wound. No definitive CT findings of underlying osteomyelitis. Consider MRI with and without contrast if possible. 2. Soft tissue swelling and subcutaneous edema at the great toe and foot. No appreciable fluid collections. 3. Multifocal osteoarthritis in the foot, most pronounced at the second through fifth tarsometatarsal joints.
--- NOTE | ~2022-12-27 | XR_ITS ---
EXAMINATION: XR FOOT, RIGHT CLINICAL INFORMATION: Right foot pain, rule out infection. COMPARISON: 11/24/2021 right foot radiographs. TECHNIQUE: AP, lateral, and oblique views of the right foot. FINDINGS: Increased soft tissue deformity and swelling is seen in the third digit. There is mild deformity along the distal cortical margin of the distal phalanx of the third digit. Postsurgical changes are seen in the second and third digits without significant change. Mild degenerative changes are again noted. XR/XR foot RT min 3V IMPRESSION: 1. Increased soft tissue deformity and swelling in the third digit with mild deformity along the distal cortical margin of the distal phalanx of the third digit. Osteomyelitis cannot be excluded. Correlate with physical exam. 2. Postsurgical changes in the second and third digits.
--- NOTE | 2022-12-27 14:48 | ED_ITS ---
HPI - General Adult General Chief complaint: Wound/Laceration Stated complaint: Infection on the Bottom of Toes Time Seen by Provider: 12/27/22 22:49 Source: patient and family Mode of arrival: ambulatory Limitations: no limitations History of Present Illness HPI narrative: 52-year-old female presents with redness, swelling, pain and pins and needle sensation on right toes. Symptoms started today. The started rapidly. Patient has history a ray amputation. She is diabetic. Any polyuria or polydipsia. She denies any fevers or chills. The pain is mild in nature but does have a history of neuropathy. There are no known injuries, falls or trauma. Her symptoms have not clearly been relieved or exacerbated by anything. Her symptoms do not radiate. Related Data Home Medications Medication Instructions Recorded Confirmed bupropion HCl 300 mg 24 hr tablet, 300 mg PO QAM 03/20/20 12/28/22 extended release escitalopram oxalate 10 mg tablet 10 mg PO DAILY 03/20/20 12/28/22 gabapentin 300 mg capsule 300 mg PO BID 03/20/20 12/28/22 lisinopril 10 mg tablet 10 mg PO DAILY 03/20/20 12/28/22 omeprazole 20 mg capsule,delayed 20 mg PO DAILY 03/20/20 12/28/22 release oxcarbazepine 300 mg tablet 300 mg PO BID 03/20/20 12/28/22 aspirin 81 mg tablet,delayed 81 mg PO DAILY 12/28/22 12/28/22 release insulin aspart U-100 100 unit/mL unit subcut TID 12/28/22 (3 mL) subcutaneous pen (Novolog FlexPen U-100 Insulin aspart) insulin glargine U-300 conc 300 36 unit subcut BEDTIME 12/28/22 12/28/22 unit/mL (1.5 mL) subcutaneous pen (Toujeo SoloStar U-300 Insulin) semaglutide 1 mg/dose (4 mg/3 mL) 1 mg subcut QWEEK 12/28/22 12/28/22 subcutaneous pen injector (Ozempic) Previous Rx's Medication Instructions Recorded blood-glucose meter,continuous #1 ea 09/06/21 (Dexcom G6 Supply Service Worker) blood-glucose sensor (Dexcom G6 #3 ea 09/06/21 Sensor device) blood-glucose transmitter (Dexcom #1 ea 09/06/21 G6 Transmitter device) blood sugar diagnostic (FreeStyle #120 ea 10/22/21 Lite Strips) semaglutide 1 mg/dose (4 mg/3 mL) 1 mg (0.75 mL) subcut QWEEK 90 02/25/22 subcutaneous pen injector (Ozempic) days #9.75 mL pen needle, diabetic 32 gauge x 1 ea subcut QID 90 days #400 ea 02/28/22 5/32 (BD Ultra-Fine Tonja Pen Needle) cholecalciferol (vitamin D3) 50 2,000 unit PO DAILY #30 caps 03/09/22 mcg (2,000 unit) capsule lancets 33 gauge (TRUEplus Lancets) 1 gauge miscellaneous QID for 05/30/22 diabetes mellitus #400 ea nitroglycerin 0.4 mg sublingual 0.4 mg sublingual Q5M PRN chest 09/05/22 tablet pain #20 tabs atorvastatin 40 mg tablet 40 mg PO DAILY #30 tabs 11/17/22 Allergies Allergy/AdvReac Type Severity Reaction Status Date / Time No Known Allergies Allergy Unknown Verified 11/10/22 14:35 Review of Systems Review of Systems: CONSTITUTIONAL: Denies weight loss, fever and chills. HEENT: Denies changes in vision and hearing. RESPIRATORY: Denies SOB and cough. CV: Denies palpitations no CP. GI: Denies abdominal pain, nausea, vomiting and diarrhea. : Denies dysuria and urinary frequency. MSK: Denies myalgia and joint pain. SKIN: Denies rash and pruritus. NEUROLOGICAL: Denies headache and syncope. PSYCHIATRIC: Denies recent changes in mood. Denies anxiety and depression. All other ROS are negative unless in HPI PMFSH Past Medical History Medical History Charcot foot due to diabetes mellitus Chronic kidney disease, stage 3 Depression Diabetic polyneuropathy Dyspnea on exertion Gallstones Hyperlipidemia LDL goal <100 Hypertension Morbid obesity Obesity due to excess calories Restrictive lung disease Type 2 diabetes mellitus with chronic kidney disease Vitamin D deficiency Surgical History History of partial amputation of toe History of partial ray amputation of third toe of right foot History of total hysterectomy with bilateral salpingo-oophorectomy (BSO) Hx of colonoscopy Hx of wisdom tooth extraction Family History Family History Father Type 2 diabetes mellitus Mother Type 2 diabetes mellitus Diverticulitis Hypertension Social History Social History Household Members: Spouse and Children Alcohol intake: never Patient Tobacco Use Status: Never used Tobacco Advance Directives: No Advance Directives Information Provided: No Physical Exam ED Vital Signs: Vital Signs - 24 hr 12/27/22 14:51 12/27/22 22:38 Temperature 98.4 F 97.4 F Pulse Rate 70 76 Respiratory Rate 18 16 Blood Pressure 139/64 138/64 Pulse Oximetry 93 98 Oxygen Delivery Method Room Air Room Air BMI result Body Mass Index 50.6 GEN: Well developed, no acute distress, alert, oriented HEENT: Normocephalic, atraumatic, normal external ears, nose appears normal Eyes: Normal to appearance Neck: Supple, no lymphadenopathy Respiratory: Talks in complete sentences, no respiratory distress Extremities: No clubbing cyanosis or edema, the right foot ray amputation, great toe and 4th digit with ulcerations, eschar Neurologic: No focal neurologic deficits, cranial nerves 2-12 intact, gait normal Skin: No rash Course Course Course Narrative: This is an RME: Additional HPI, ROS, PE not included below will be deferred to primary provider. Patient is a 52 yo F with PMH of DM and amputation of toe in R foot presenting with blackening of her toes on her right foot for 2 days. Patient denies fever, chills, nausea, vomiting, chest pain, shortness of breath, headache, vision changes, tingling, numbness. Plan: labs, xray Reevaluation(s) Reevaluation #1: Patient will be admitted for diabetic foot ulcer, history of ray amputation, I am concerned specifically on the 4th ray that she may have osteomyelitis. This was not confirmed on x-ray. Time: 01:00 Medications Administered Generic Name Dose Route Start Last Admin Trade Name Freq PRN Reason Stop Dose Admin Vancomycin HCl 2,000 mg in 500 mls @ 250 mls/hr 12/27/22 23:30 12/28/22 00:49 Vancomycin/Ns IV 12/28/22 01:29 250 mls/hr ONCE ONE Administration Discontinued Medications Generic Name Dose Route Start Last Admin Trade Name Yarelis PRN Reason Stop Dose Admin Piperacillin Sod/Tazobactam 50 mls @ 100 mls/hr 12/27/22 23:09 12/28/22 00:47 Sod 3.375 gm/ Sodium Chloride IV 12/27/22 23:38 Infused ONCE ONE Infusion Vancomycin HCl 1,000 mg/ 270 mls @ 270 mls/hr 12/27/22 23:09 12/28/22 00:47 Sodium Chloride IV 12/28/22 00:08 Not Given ONCE ONE Medical Decision Making Medical Decision Making [facility] Narrative: 52-year-old female presents with possible cellulitis and osteomyelitis of the great toe and 4th digit on the right foot. Patient does have good pulses. She appears to be neurovascular intact. However, there are significant skin breakdown. I am not able to probe to the bone but I am concerned that spe cifically on her 4th digit she may have osteomyelitis. Differential diagnosis includes cellulitis, osteomyelitis, ulceration, diabetic ulcer, venous insufficiency, arterial insufficiency Plan: CBC, inflammatory markers, imaging studies, antibiotics, admission Differential Diagnosis Differential Diagnoses: The differential diagnosis associated with the presentation includes (See above) Admission/Observation Consideration of admission/observation: Escalation of care including admissio n/observation considered Consult Healthcare Provider Management of the patient was discussed with: Hospitalist Lab Data [facility] Lab Attestation statement: I reviewed the patient's lab results. 12/27/22 15:25 12/27/22 15:25 Labs: Lab Results 12/27/22 12/27/22 12/27/22 Range/Units 15:25 15:25 15:25 WBC 5.5 (4.8-10.8) X10*3/uL RBC 4.22 (4.20-5.50) X10*6/uL Hgb 11.7 L (12.0-16.0) g/dl Hct 36.5 L (37.0-47.0) % MCV 86.5 (80.0-98.0) fL MCH 27.7 (27.0-33.0) pg MCHC 32.1 (31.0-35.0) g/dl RDW 12.4 (11.0-16.0) % Plt Count 197 (160-400) X10*3/uL MPV 11.3 (9.4-12.3) fL Immature Gran % (Auto) 0.4 (0.0-0.4) % Neut % (Auto) 50.8 (45-73) % Lymph % (Auto) 31.3 (20-40) % [place] % (Auto) 11.3 H (2-11) % Eos % (Auto) 5.7 H (0-4) % Baso % (Auto) 0.5 (0-2) % Lymph # (Auto) 1.7 (1.2-4.9) X10*3/uL [place] # (Auto) 0.6 (0.1-1.2) X10*3/uL Eos # (Auto) 0.3 (0.0-0.4) X10*3/uL Baso # (Auto) 0.0 (0.0-0.2) X10*3/uL Abs Immat Gran (auto) 0.02 (0.00-0.03) X10*3/uL Absolute Neuts (auto) 2.8 (2.0-8.3) x10*3/uL Absolute Nucleated RBC 0.000 (0.0-0.012) X10*3/uL Nucleated RBC % (auto) 0.0 (0.0-0.2) /100WBC ESR 20 (0-20) MM/HR Sodium 137 (135-145) mmol/L Potassium 4.1 (3.3-5.1) mmol/L Chloride 101 (96-108) mmol/L Carbon Dioxide 27 (22-29) mmol/L Anion Gap 13 (12-20) BUN 18 H (9-16) mg/dL Creatinine 1.38 (0.5-1.4) mg/dL Estim Creat Clear Calc 75.0 Estimated GFR 40 Random Glucose 348 H (60-115) mg/dL Lactic Acid (0.5-2.0) mmol/L Calcium 9.5 (8.4-10.2) mg/dL Magnesium 1.6 (1.6-2.6) mg/dL Total Bilirubin 0.4 (0.0-1.0) mg/dL AST 20 (5-31) U/L ALT 16 (0-31) U/L Alkaline Phosphatase 100 (39-117) U/L C-Reactive Protein 4.32 H (< or = 0.50) mg/dL Total Protein 7.1 (6.5-8.0) g/dL Albumin 3.7 (3.5-5.0) g/dL 12/27/22 12/27/22 12/27/22 Range/Units 19:53 19:53 19:54 WBC (4.8-10.8) X10*3/uL RBC (4.20-5.50) X10*6/uL Hgb (12.0-16.0) g/dl Hct (37.0-47.0) % MCV (80.0-98.0) fL MCH (27.0-33.0) pg MCHC (31.0-35.0) g/dl RDW (11.0-16.0) % Plt Count (160-400) X10*3/uL MPV (9.4-12.3) fL Immature Gran % (Auto) (0.0-0.4) % Neut % (Auto) (45-73) % Lymph % (Auto) (20-40) % [place] % (Auto) (2-11) % Eos % (Auto) (0-4) % Baso % (Auto) (0-2) % Lymph # (Auto) (1.2-4.9) X10*3/uL [place] # (Auto) (0.1-1.2) X10*3/uL Eos # (Auto) (0.0-0.4) X10*3/uL Baso # (Auto) (0.0-0.2) X10*3/uL Abs Immat Gran (auto) (0.00-0.03) X10*3/uL Absolute Neuts (auto) (2.0-8.3) x10*3/uL Absolute Nucleated RBC (0.0-0.012) X10*3/uL Nucleated RBC % (auto) (0.0-0.2) /100WBC ESR 23 H (0-20) MM/HR Sodium (135-145) mmol/L Potassium (3.3-5.1) mmol/L Chloride (96-108) mmol/L Carbon Dioxide (22-29) mmol/L Anion Gap (12-20) BUN (9-16) mg/dL Creatinine (0.5-1.4) mg/dL Estim Creat Clear Calc Estimated GFR Random Glucose (60-115) mg/dL Lactic Acid 1.1 (0.5-2.0) mmol/L Calcium (8.4-10.2) mg/dL Magnesium (1.6-2.6) mg/dL Total Bilirubin (0.0-1.0) mg/dL AST (5-31) U/L ALT (0-31) U/L Alkaline Phosphatase (39-117) U/L C-Reactive Protein 4.63 H (< or = 0.50) mg/dL Total Protein (6.5-8.0) g/dL Albumin (3.5-5.0) g/dL Independent Interpretation I performed an independent interpretation of an: Plain X-Ray (Right foot, no definite evidence of osteomyelitis) Independent Historian Clinical information obtained from an independent historian. History obtained from or confirmed by: Other (Daughter) Prescription Management I considered prescription management with: Pain Medication and Antibiotic Chronic Conditions Patient?s care impacted by: Diabetes Discharge Plan Discharge Clinical Impression: Type 2 diabetes mellitus with chronic kidney disease, Diabetic foot ulcer Patient Disposition: Admitted As Inpatient
[2022-12-27 14:51] VITALS: BP 139/64; PULSE 70; RESP 18; TEMP 36.9; O2SAT 93; BMI 50.6
[2022-12-27 15:38] LABS: MANUAL DIFF FLAG NO
[2022-12-27 15:41] LABS: Basophils Percent Auto 0.5 % (0-2); Eosinophils Absolute Auto 0.3 X10*3/uL (0.0-0.4); Eosinophils Percent Auto 5.7 % (0-4); Hematocrit 36.5 % (37.0-47.0); Hemoglobin 11.7 g/dl (12.0-16.0); Imm Gran Abs Auto 0.02 X10*3/uL (0.00-0.03); Imm Gran Pct Auto 0.4 % (0.0-0.4); Lymphocytes Absolute Auto 1.7 X10*3/uL (1.2-4.9); Lymphocytes Percent Auto 31.3 % (20-40); Mean Corpuscular HGB Conc 32.1 g/dl (31.0-35.0); Mean Corpuscular Hemoglobin 27.7 pg (27.0-33.0); Mean Corpuscular Volume 86.5 fL (80.0-98.0); Mean Platelet Volume 11.3 fL (9.4-12.3); Monocytes Absolute Auto 0.6 X10*3/uL (0.1-1.2); Monocytes Percent Auto 11.3 % (2-11); Neutrophils Absolute Auto 2.8 x10*3/uL (2.0-8.3); Neutrophils Percent Auto 50.8 % (45-73); Platelet Count 197 X10*3/uL (160-400); Red Blood Count 4.22 X10*6/uL (4.20-5.50); Red Cell Distribution Width 12.4 % (11.0-16.0); White Blood Count 5.5 X10*3/uL (4.8-10.8)
[2022-12-27 16:06] LABS: Alanine Aminotransferase 16 U/L (0-31); Albumin Level 3.7 g/dL (3.5-5.0); Alkaline Phosphatase 100 U/L (39-117); Anion Gap 13 (12-20); Aspartate Amino Transferase 20 U/L (5-31); Bilirubin Total 0.4 mg/dL (0.0-1.0); Blood Urea Nitrogen 18 mg/dL (9-16); C Reactive Protein 4.32 mg/dL (< or = 0.50); Calcium 9.5 mg/dL (8.4-10.2); Carbon Dioxide 27 mmol/L (22-29); Chloride 101 mmol/L (96-108); Estimated Glomerular Filt Rate 40; Glucose Random 348 mg/dL (60-115); Magnesium 1.6 mg/dL (1.6-2.6); Potassium 4.1 mmol/L (3.3-5.1); Sodium 137 mmol/L (135-145); Total Protein 7.1 g/dL (6.5-8.0)
[2022-12-27 16:48] LABS: Erythrocyte Sedimentation Rate 20 MM/HR (0-20)
[2022-12-27 20:20] LABS: Lactic Acid 1.1 mmol/L (0.5-2.0)
[2022-12-27 20:22] LABS: C Reactive Protein 4.63 mg/dL (< or = 0.50)
[2022-12-27 20:52] LABS: Erythrocyte Sedimentation Rate 23 MM/HR (0-20)
[2022-12-27 22:38] VITALS: BP 138/64; PULSE 76; RESP 16; TEMP 36.3; O2SAT 98
[2022-12-27] MEDS: Piperacillin Sodium/Tazobactam 3.375 GM in 0.9 % Sodium Chloride 50 ML IV (23:59)
--- NOTE | 2022-12-28 00:32 | PM.IMHP ---
History of Present Illness Date of Service: 12/28/22 Chief Complaint: foot ulcer 52-year-old female past medical history of diabetes, depression, diabetic polyneuropathy, HTN, HLD, morbid obesity, vitamin-D deficiency, restrictive lung disease, comes into the hospital with complaints of foot ulcer. Daughter at bedside, speaks mostly Turkmen but daughter helped give me most of the history. It appears that about 2 days ago patient developed an ulcer on her right big toe as well as on the 4th toe on the right foot. Initially it was pink but has now developed into a draining ulcer with redness and swelling. Patient is also describing pain 8/10, nonradiating, constant, throbbing. Patient denies any fever no chills, no chest pain, no shortness of breath, no abdominal pain nausea or vomiting, no diarrhea constipation, no urinary symptoms and no lower extremity edema. On arrival to the ED patient hemodynamically stable with no significant abnormal vitals Labs are significant for WBC count of 5.5, ESR of 20, CRP of 4.3, labs otherwise unremarkable Patient started on IV antibiotics will be admitted for further management Review of Systems Review of Systems: Yes all other systems are reviewed and are negative [facility] Medical History Charcot foot due to diabetes mellitus Chronic kidney disease, stage 3 Depression Diabetic polyneuropathy Dyspnea on exertion Gallstones Hyperlipidemia LDL goal <100 Hypertension Morbid obesity Obesity due to excess calories Restrictive lung disease Type 2 diabetes mellitus with chronic kidney disease Vitamin D deficiency Family History Father Type 2 diabetes mellitus Mother Type 2 diabetes mellitus Diverticulitis Hypertension Surgical History History of partial amputation of toe History of partial ray amputation of third toe of right foot History of total hysterectomy with bilateral salpingo-oophorectomy (BSO) Hx of colonoscopy Hx of wisdom tooth extraction Social History Household Members: Spouse and Children Alcohol intake: never Patient Tobacco Use Status: Never used Tobacco Advance Directives: No Advance Directives Information Provided: No Meds Allergies Allergy/AdvReac Type Severity Reaction Status Date / Time No Known Allergies Allergy Unknown Verified 11/10/22 14:35 Active Medications: Current Medications Acetaminophen (Acetaminophen 325 Mg Tablet) 650 mg PO Q6H PRN PRN Reason: Pain, Mild (Pain Scale 1-3) Dextrose (Dextrose 50 % 25 Gm/50 Ml Syringe) 25 gm IVPUSH Q15M PRN; Protocol PRN Reason: per Hypoglycemia Standing Ord. Docusate Sodium (Docusate Sodium 100 Mg Capsule) 100 mg PO DAILY PRN PRN Reason: Constipation Enoxaparin Sodium (Enoxaparin Sodium 40 Mg/0.4 Ml Syringe) 40 mg SUBCUT Q24H [facility] Glucose (Glucose Gel 15 Gm Gel..Gram.) 15 gm PO Q15M PRN; Protocol PRN Reason: per Hypoglycemia Standing Ord. Vancomycin HCl (Vancomycin/Ns) 2,000 mg in 500 mls @ 250 mls/hr IV ONCE ONE Stop: 12/28/22 01:29 Vancomycin HCl 1,250 mg/ (Sodium Chloride) 250 mls @ 166.667 mls/hr IV Q12H [facility] Piperacillin Sod/Tazobactam (Sod 3.375 gm/ Sodium Chloride) 50 mls @ 100 mls/hr IV Q6H [facility] Lactated Ringer's (Lr) 1,000 mls @ 50 mls/hr IVCONT .Q20H [facility] Insulin Human Lispro (Insulin Lispro 100 Unit/Ml 3 Ml Vial) 0 unit SUBCUT QIDACHS [facility]; Protocol Ondansetron HCl (Ondansetron Hcl 4 Mg/2 Ml Vial) 4 mg IVPUSH Q8H PRN PRN Reason: Nausea and Vomiting Pharmacy Consult (Consult Rx Vancomycin Dosing) 1 each MISCELLANE DAILY PRN PRN Reason: Consult order Pharmacy Consult (Consult Rx Perform Med Rec) 1 each MISCELLANE ONCE PRN PRN Reason: Consult order Pharmacy Consult (Consult Rx Vancomycin Dosing) 1 each MISCELLANE DAILY PRN PRN Reason: Consult order Sodium Chloride (0.9 % Sodium Chloride Flush 3 Ml Syringe) [address] [facility] Home Medications Medication Instructions Recorded Confirmed Last Taken Type bupropion HCl 300 mg 24 hr tablet, 300 mg PO QAM 03/20/20 09/26/22 Unknown History extended release escitalopram oxalate 10 mg tablet 10 mg PO DAILY 03/20/20 09/26/22 Unknown History gabapentin 300 mg capsule 300 mg PO BID 03/20/20 09/26/22 Unknown History lisinopril 10 mg tablet 10 mg PO DAILY 03/20/20 09/26/22 Unknown History omeprazole 20 mg capsule,delayed 20 mg PO DAILY 03/20/20 09/26/22 Unknown History release oxcarbazepine 300 mg tablet 300 mg PO BID 03/20/20 09/26/22 Unknown History aspirin 81 mg tablet,delayed 81 mg PO DAILY 12/28/22 12/28/22 12/27/22 History release insulin glargine U-300 conc 300 36 unit subcut BEDTIME 12/28/22 12/28/22 12/26/22 History unit/mL (1.5 mL) subcutaneous pen (Toujeo SoloStar U-300 Insulin) Physical Exam Vital Signs and Narrative: Vital Signs: Last Vital Signs Temp 97.4 F 12/27/22 22:38 Pulse 76 12/27/22 22:38 Resp 16 12/27/22 22:38 BP 138/64 12/27/22 22:38 Pulse Ox 98 12/27/22 22:38 O2 Del Method Room Air 12/27/22 22:38 BMI result Body Mass Index 50.6 Const: General: cooperative and no acute distress Orientation/consciousness: patient oriented x3 Eyes: General: appearance normal, both eyes and all related structures Resp: Effort & Inspection: normal respiratory effort Auscultation: clear to auscultation bilaterally Cardio: Rate: regular rate Rhythm: regular rhythm GI: Palpation (GI): Soft to palpation Auscultation: normal bowel sounds Skin: General skin exam: no rashes or lesions noted Neuro: General: patient oriented x3 Cognition (Neuro): normal cognition Extrem: Other: Right foot big toe ulcer, draining clear liquid, edema, warmth, tenderness, 4th toe ulcers wall no drainage Results Labs 12/27/22 15:25 12/27/22 15:25 Labs: Laboratory Results - last 24 hr 12/27/22 12/27/22 12/27/22 15:25 15:25 15:25 MCV 86.5 MCH 27.7 MCHC 32.1 RDW 12.4 Plt Count 197 MPV 11.3 Immature Gran % (Auto) 0.4 Neut % (Auto) 50.8 Lymph % (Auto) 31.3 [place] % (Auto) 11.3 H Eos % (Auto) 5.7 H Baso % (Auto) 0.5 Lymph # (Auto) 1.7 [place] # (Auto) 0.6 Eos # (Auto) 0.3 Baso # (Auto) 0.0 Abs Immat Gran (auto) 0.02 Absolute Neuts (auto) 2.8 Absolute Nucleated RBC 0.000 Nucleated RBC % (auto) 0.0 ESR 20 Anion Gap 13 Estim Creat Clear Calc 75.0 Estimated GFR 40 Random Glucose 348 H Lactic Acid Calcium 9.5 Magnesium 1.6 Total Bilirubin 0.4 AST 20 ALT 16 Alkaline Phosphatase 100 C-Reactive Protein 4.32 H Total Protein 7.1 Albumin 3.7 12/27/22 12/27/22 12/27/22 19:53 19:53 19:54 MCV MCH MCHC RDW Plt Count MPV Immature Gran % (Auto) Neut % (Auto) Lymph % (Auto) [place] % (Auto) Eos % (Auto) Baso % (Auto) Lymph # (Auto) [place] # (Auto) Eos # (Auto) Baso # (Auto) Abs Immat Gran (auto) Absolute Neuts (auto) Absolute Nucleated RBC Nucleated RBC % (auto) ESR 23 H Anion Gap Estim Creat Clear Calc Estimated GFR Random Glucose Lactic Acid 1.1 Calcium Magnesium Total Bilirubin AST ALT Alkaline Phosphatase C-Reactive Protein 4.63 H Total Protein Albumin Imaging Radiologist's Impressions: Impressions Foot X-Ray 12/27/22 15:01 IMPRESSION: 1. Increased soft tissue deformity and swelling in the third digit with mild deformity along the distal cortical margin of the distal phalanx of the third digit. Osteomyelitis cannot be excluded. Correlate with physical exam. 2. Postsurgical changes in the second and third digits. Assessment and Plan (1) Diabetic foot ulcer: Status: Acute Plan 52-year-old female past medical history of diabetes and diabetic polyneuropathy presents the hospital with diabetic foot ulcer # diabetic foot ulcer - concerning for deeper osteomyelitis - has mildly elevated ESR and CRP - no fever, no leukocytosis - will treat with IV antibiotics - infectious disease consulted # diabetes - low-dose sliding scale insulin - diabetic diet - continue home insulin # GERD - continue PPI # hyperlipidemia - continue statin DVT prophylaxis: Lovenox Given patient being diabetic, with risk factors for diabetic osteomyelitis and worsening infection patient will need a minimum 2 nights inpatient admission for IV antibiotics and further evaluation with Infectious Disease input Time Spent With Patient Time: Total time managing care of this patient today ____ minutes. Quality Stroke Does the patient have a stroke diagnosis?: No VTE Prior VTE?: No VTE Risk Level:: Medical - moderate - high VTE Device Contraindication: Treatment Not Indicated VTE Drug Contraindication: N/A - Med Ordered
[2022-12-28] MEDS: vancomycin/NS 2,000 MG/500 ML PLAST..BAG 250 MG IV (00:49)
[2022-12-28] MEDS: Lactated Ringers 1,000 ML 50 ML IVCONT (04:31)
[2022-12-28 04:57] VITALS: BP 132/63; PULSE 70; RESP 16; TEMP 36.3; O2SAT 98
[2022-12-28 05:18] LABS: MANUAL DIFF FLAG NO
[2022-12-28 05:19] LABS: Basophils Percent Auto 0.5 % (0-2); Eosinophils Absolute Auto 0.3 X10*3/uL (0.0-0.4); Eosinophils Percent Auto 5.7 % (0-4); Hematocrit 35.1 % (37.0-47.0); Hemoglobin 11.4 g/dl (12.0-16.0); Imm Gran Abs Auto 0.02 X10*3/uL (0.00-0.03); Imm Gran Pct Auto 0.4 % (0.0-0.4); Lymphocytes Absolute Auto 1.4 X10*3/uL (1.2-4.9); Lymphocytes Percent Auto 26.3 % (20-40); Mean Corpuscular HGB Conc 32.5 g/dl (31.0-35.0); Mean Corpuscular Hemoglobin 27.8 pg (27.0-33.0); Mean Corpuscular Volume 85.6 fL (80.0-98.0); Mean Platelet Volume 11.2 fL (9.4-12.3); Monocytes Absolute Auto 0.6 X10*3/uL (0.1-1.2); Monocytes Percent Auto 11.2 % (2-11); Neutrophils Absolute Auto 3.1 x10*3/uL (2.0-8.3); Neutrophils Percent Auto 55.9 % (45-73); Platelet Count 196 X10*3/uL (160-400); Red Cell Distribution Width 12.3 % (11.0-16.0); White Blood Count 5.5 X10*3/uL (4.8-10.8)
[2022-12-28 05:34] LABS: Anion Gap 13 (12-20); Blood Urea Nitrogen 17 mg/dL (9-16); Calcium 9.2 mg/dL (8.4-10.2); Carbon Dioxide 27 mmol/L (22-29); Chloride 100 mmol/L (96-108); Creatinine Clr Calc Pharmacy 89.9; Estimated Glomerular Filt Rate 49; Glucose Random 307 mg/dL (60-115); Potassium 4.1 mmol/L (3.3-5.1); Sodium 136 mmol/L (135-145)
[2022-12-28] MEDS: Piperacillin Sodium/Tazobactam 3.375 GM in 0.9 % Sodium Chloride 50 ML IV ×4 (05:50→23:51)
--- NOTE | 2022-12-28 07:10 | PHA.MEDREC ---
Pharmacy Consult ? Medication Reconciliation Pharmacy has reviewed the medication reconciliation by Essence. Stefania Amezcua, PharmD
[2022-12-28 07:33] LABS: Glucose, Whole Blood 252 mg/dL (60-115)
[2022-12-28] MEDS: Insulin Lispro 100 UNIT/ML 3 ML VIAL SUBCUT ×6 (07:56→21:19)
[2022-12-28] MEDS: Enoxaparin Sodium 40 MG/0.4 ML SYRINGE SUBCUT (07:57)
[2022-12-28 08:00] VITALS: BP 131/62; PULSE 72; RESP 16; TEMP 36.8; O2SAT 99
[2022-12-28] MEDS: Acetaminophen 325 MG TABLET 650 MG PO (08:04)
--- NOTE | 2022-12-28 08:35 | HO.PM.IMPN ---
Subjective Subjective Date of Service: 12/28/22 Review of Systems Follow up diabetic foot ulcer no pain Physical Exam Vital Signs: Vital Signs: Last Vital Signs Temp 98.3 F 12/28/22 08:00 Pulse 72 12/28/22 08:00 Resp 16 12/28/22 08:00 BP 131/62 12/28/22 08:00 Pulse Ox 99 12/28/22 08:00 O2 Del Method Room Air 12/28/22 08:00 BMI result Body Mass Index 50.6 Appearing in no acute distress lung sounds are clear to auscultation heart regular rate rhythm, clear S1, S2 positive bowel sounds, abdomen is soft, nontender neuro patient is alert x3, no focal deficits right great toe with hardened eschar to plantar aspect, right 3rd toe similar appearance no drainage noted Objective Data Active Medications Acetaminophen (Acetaminophen 325 Mg Tablet) 650 mg PO Q6H PRN PRN Reason: Pain, Mild (Pain Scale 1-3) Last Admin: 12/28/22 08:04 Dose: 650 mg Documented By: SHAHRIAR Dextrose (Dextrose 50 % 25 Gm/50 Ml Syringe) 25 gm IVPUSH Q15M PRN; Protocol PRN Reason: per Hypoglycemia Standing Ord. Docusate Sodium (Docusate Sodium 100 Mg Capsule) 100 mg PO DAILY PRN PRN Reason: Constipation Enoxaparin Sodium (Enoxaparin Sodium 40 Mg/0.4 Ml Syringe) 40 mg SUBCUT Q24H [facility] Last Admin: 12/28/22 07:57 Dose: 40 mg Documented By: SHAHRIAR Glucose (Glucose Gel 15 Gm Gel..Gram.) 15 gm PO Q15M PRN; Protocol PRN Reason: per Hypoglycemia Standing Ord. Piperacillin Sod/Tazobactam (Sod 3.375 gm/ Sodium Chloride) 50 mls @ 100 mls/hr IV Q6H [facility] Last Infusion: 12/28/22 07:05 Dose: 0 mls/hr Documented By: DEJON Lactated Ringer's (Lr) 1,000 mls @ 50 mls/hr IVCONT .Q20H [facility] Last Admin: 12/28/22 04:31 Dose: 50 mls/hr Documented By: VADIM Vancomycin HCl 1,250 mg/ (Sodium Chloride) 250 mls @ 166.667 mls/hr IV Q12H [facility] Insulin Human Lispro (Insulin Lispro 100 Unit/Ml 3 Ml Vial) 0 unit SUBCUT QIDACHS [facility]; Protocol Last Admin: 12/28/22 07:56 Dose: 6 unit Documented By: SHAHRIAR Ondansetron HCl (Ondansetron Hcl 4 Mg/2 Ml Vial) 4 mg IVPUSH Q8H PRN PRN Reason: Nausea and Vomiting Pharmacy Consult (Consult Rx Perform Med Rec) 1 each MISCELLANE ONCE PRN PRN Reason: Consult order Pharmacy Consult (Consult Rx Vancomycin Dosing) 1 each MISCELLANE DAILY PRN PRN Reason: Consult order Sodium Chloride (0.9 % Sodium Chloride Flush 3 Ml Syringe) [facility] Last Admin: 12/28/22 07:05 Dose: Not Given Documented By: DEJON Non-Admin Reason: IV Running Labs 12/28/22 05:13 12/28/22 05:13 Labs: Laboratory Results - last 24 hr 12/27/22 12/27/22 12/27/22 15:25 15:25 15:25 MCV 86.5 MCH 27.7 MCHC 32.1 RDW 12.4 Plt Count 197 MPV 11.3 Immature Gran % (Auto) 0.4 Neut % (Auto) 50.8 Lymph % (Auto) 31.3 [place] % (Auto) 11.3 H Eos % (Auto) 5.7 H Baso % (Auto) 0.5 Lymph # (Auto) 1.7 [place] # (Auto) 0.6 Eos # (Auto) 0.3 Baso # (Auto) 0.0 Abs Immat Gran (auto) 0.02 Absolute Neuts (auto) 2.8 Absolute Nucleated RBC 0.000 Nucleated RBC % (auto) 0.0 ESR 20 Anion Gap 13 Estim Creat Clear Calc 75.0 Estimated GFR 40 POC Glucose Random Glucose 348 H Lactic Acid Calcium 9.5 Magnesium 1.6 Total Bilirubin 0.4 AST 20 ALT 16 Alkaline Phosphatase 100 C-Reactive Protein 4.32 H Total Protein 7.1 Albumin 3.7 12/27/22 12/27/22 12/27/22 19:53 19:53 19:54 MCV MCH MCHC RDW Plt Count MPV Immature Gran % (Auto) Neut % (Auto) Lymph % (Auto) [place] % (Auto) Eos % (Auto) Baso % (Auto) Lymph # (Auto) [place] # (Auto) Eos # (Auto) Baso # (Auto) Abs Immat Gran (auto) Absolute Neuts (auto) Absolute Nucleated RBC Nucleated RBC % (auto) ESR 23 H Anion Gap Estim Creat Clear Calc Estimated GFR POC Glucose Random Glucose Lactic Acid 1.1 Calcium Magnesium Total Bilirubin AST ALT Alkaline Phosphatase C-Reactive Protein 4.63 H Total Protein Albumin 12/28/22 12/28/22 12/28/22 05:13 05:13 07:28 MCV 85.6 MCH 27.8 MCHC 32.5 RDW 12.3 Plt Count 196 MPV 11.2 Immature Gran % (Auto) 0.4 Neut % (Auto) 55.9 Lymph % (Auto) 26.3 [place] % (Auto) 11.2 H Eos % (Auto) 5.7 H Baso % (Auto) 0.5 Lymph # (Auto) 1.4 [place] # (Auto) 0.6 Eos # (Auto) 0.3 Baso # (Auto) 0.0 Abs Immat Gran (auto) 0.02 Absolute Neuts (auto) 3.1 Absolute Nucleated RBC 0.000 Nucleated RBC % (auto) 0.0 ESR Anion Gap 13 Estim Creat Clear Calc 89.9 Estimated GFR 49 POC Glucose 252 H Random Glucose 307 H Lactic Acid Calcium 9.2 Magnesium Total Bilirubin AST ALT Alkaline Phosphatase C-Reactive Protein Total Protein Albumin Assessment and Plan (1) Diabetic foot ulcer: Status: Acute Plan 52-year-old female past medical history of diabetes and diabetic polyneuropathy presents the hospital with diabetic foot ulcer Diabetic foot ulcer concerning for deeper osteomyelitis has mildly elevated ESR and CRP no fever, no leukocytosis Vancomycin and zosyn foot ct pending infectious disease consulted diabetes ss, ada diet GERD continue PPI hyperlipidemia continue statin Morbid obesity. BMI 50.7 Discussed importance of weight management as this may be contributing to worsening of other comorbidities DVT prophylaxis: Lovenox Attending Dr. Branch continued hospital stay for IV antibiotics and further evaluation with Infectious Disease input Time Spent With Patient Time: Total time managing care of this patient today ____ minutes. Quality Stroke Does the patient have a stroke diagnosis?: No VTE Prior VTE?: No VTE Risk Level:: Medical - moderate - high VTE Device Contraindication: Treatment Not Indicated VTE Drug Contraindication: N/A - Med Ordered
[2022-12-28 11:29] LABS: Glucose, Whole Blood 244 mg/dL (60-115)
[2022-12-28 11:42] VITALS: BMI 50.6
[2022-12-28] MEDS: vancomycin HCL 1,250 MG in 0.9 % Sodium Chloride 250 ML 166.67 MG IV (13:02)
--- NOTE | 2022-12-28 13:39 | MHC.CM.PN ---
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
--- NOTE | 2022-12-28 14:11 | P.CDIM_ITS ---
PROVIDER RESPONSE TEXT: To clarify, the appropriate diagnosis supported by the clinical indicators: Clinically unable to determine (explain): . QUERY TEXT: PHYSICIAN'S DOCUMENTATION REQUEST Date of Query: 12/28/2022 11:23 AM EDT Patient Name: Dora Fernandez Admit Date: 12/28/2022 Dear Estephanie Calderon, A review of the medical record indicates additional documentation may be needed. Please review below and update the documentation accordingly. Clinical Indicators: LABS: POC glucose 252 H Insulin Please clarify the following regarding the labs: Diabetes mellitus with hyperglycemia Other Other (explain)Clinically unable to determine (explain)Thank you, Chela Fairbanks, CCS, CDIS Use of terms such as suspected, likely, concern for, or probable (associated with a specific diagnosi s that is being evaluated, monitored, or treated as if it exists) are acceptable and can be coded in the inpatient se tting, when documented at the time of discharge. Please use your independent medical judgment in providing your response. THIS QUERY IS PART OF THE PERMANENT MEDICAL RECORD
--- NOTE | 2022-12-28 14:12 | HO.WOUND ---
Wound Care Consult Reason for consult: Right great toe and right 4th toe Patient was in her bed at the time of consult with family in the room. Daughter did say that there has been dry, hard calluses on the right great toe and right 4th toe for a couple of months now. She scheduled an appt with her ice house supervisor on January 09 for diabetic foot care and states she usually sees them every couple of months for the calluses. The daughter also states that they were using some sort of toe sleeves to protect the right great toe knuckle and right 4th toe knuckle from rubbing on her shoes. She does say that the size might have been to small for the toes because it ended up being swollen at the tip. The daughter stated they thought that the calluses could wait until the appt with the ice house supervisor but a couple of days ago they were a little soft and her toes were red. At the time of consult there was no dressing on the toes. No redness or swelling. Patient had palpable DP and PT pulses on the right foot. No drainage noted. Did ask the daughter if they had noticed any drainage coming from the calluses and she said no. No drainage could be expressed from the calluses. Callused areas seem to be intact, dry and hard. Did look like there might have been an area on the right great toe where skin might of came off and was draining at one time but at this time there is no wounds on the right great toe or the right 4th toe to be noted. Did speak with the family about the importance of keeping the ice house supervisor appt and if there was any changes, another wound care consult could be put in. Recommendation: At this time no wound care dressings are needed. If the callused areas open up for some reason and need require dressings, please feel free to reconsult. Certified Phlebotomist appt for the patient should be kept and if possible, the appt should be moved up to get diabetic foot care sooner.
--- NOTE | 2022-12-28 15:18 | W.PM.IDCN ---
History of Present Illness Data of Consult Service Date: 12/28/22 Requesting physician: Estephanie Calderon Primary Care Provider: MD EVENS Ferguson Reason for consult: right foot diabetes infection She presents to hospital with complaints of numbness right foot for last day. She has no fever or chills. She has had right great toe amputation in past due to infection. CT scan doesnt show definite osteomyelitis. Review of Systems Review of Systems: Yes all other systems are reviewed and are negative PMFSH Past Medical History Medical History Charcot foot due to diabetes mellitus Chronic kidney disease, stage 3 Depression Diabetic polyneuropathy Dyspnea on exertion Gallstones Hyperlipidemia LDL goal <100 Hypertension Morbid obesity Obesity due to excess calories Restrictive lung disease Type 2 diabetes mellitus with chronic kidney disease Vitamin D deficiency Family History Family History Father Type 2 diabetes mellitus Mother Type 2 diabetes mellitus Diverticulitis Hypertension Family history: reviewed and not pertinent Surgical History Surgical History History of partial amputation of toe History of partial ray amputation of third toe of right foot History of total hysterectomy with bilateral salpingo-oophorectomy (BSO) Hx of colonoscopy Hx of wisdom tooth extraction Social History Social History Household Members: Family Household Members Other:: , mother Housing: Apartment Do you presently have visiting nurse or other home services: Yes ([employer]) Alcohol intake: never Patient Tobacco Use Status: Never used Tobacco service: No Meds Allergies Allergy/AdvReac Type Severity Reaction Status Date / Time No Known Allergies Allergy Unknown Verified 11/10/22 14:35 Active Medications: Current Medications Acetaminophen (Acetaminophen 325 Mg Tablet) 650 mg PO Q6H PRN PRN Reason: Pain, Mild (Pain Scale 1-3) Last Admin: 12/28/22 08:04 Dose: 650 mg Dextrose (Dextrose 50 % 25 Gm/50 Ml Syringe) 25 gm IVPUSH Q15M PRN; Protocol PRN Reason: per Hypoglycemia Standing Ord. Docusate Sodium (Docusate Sodium 100 Mg Capsule) 100 mg PO DAILY PRN PRN Reason: Constipation Enoxaparin Sodium (Enoxaparin Sodium 40 Mg/0.4 Ml Syringe) 40 mg SUBCUT Q24H [facility] Last Admin: 12/28/22 07:57 Dose: 40 mg Glucose (Glucose Gel 15 Gm Gel..Gram.) 15 gm PO Q15M PRN; Protocol PRN Reason: per Hypoglycemia Standing Ord. Piperacillin Sod/Tazobactam (Sod 3.375 gm/ Sodium Chloride) 50 mls @ 100 mls/hr IV Q6H [facility] Last Infusion: 12/28/22 13:02 Dose: Infused Lactated Ringer's (Lr) 1,000 mls @ 50 mls/hr IVCONT .Q20H [facility] Last Admin: 12/28/22 04:31 Dose: 50 mls/hr Vancomycin HCl 1,250 mg/ (Sodium Chloride) 250 mls @ 166.667 mls/hr IV Q12H [facility] Last Infusion: 12/28/22 14:51 Dose: Infused Insulin Human Lispro (Insulin Lispro 100 Unit/Ml 3 Ml Vial) 0 unit SUBCUT QIDACHS [facility]; Protocol Last Admin: 12/28/22 12:14 Dose: 4 unit Insulin Human Lispro (Insulin Lispro 100 Unit/Ml 3 Ml Vial) 5 unit SUBCUT QIDACHS [facility] Ondansetron HCl (Ondansetron Hcl 4 Mg/2 Ml Vial) 4 mg IVPUSH Q8H PRN PRN Reason: Nausea and Vomiting Pharmacy Consult (Consult Rx Perform Med Rec) 1 each MISCELLANE ONCE PRN PRN Reason: Consult order Pharmacy Consult (Consult Rx Vancomycin Dosing) 1 each MISCELLANE DAILY PRN PRN Reason: Consult order Sodium Chloride (0.9 % Sodium Chloride Flush 3 Ml Syringe) 3 ml IVFLUSH QSHIFT [facility] Last Admin: 12/28/22 14:52 Dose: Not Given Home Medications Medication Instructions Recorded Confirmed Last Taken Type bupropion HCl 300 mg 24 hr tablet, 300 mg PO QAM 03/20/20 12/28/22 12/27/22 History extended release escitalopram oxalate 10 mg tablet 10 mg PO DAILY 03/20/20 12/28/22 12/27/22 History gabapentin 300 mg capsule 300 mg PO BID 03/20/20 12/28/22 12/27/22 History lisinopril 10 mg tablet 10 mg PO DAILY 03/20/20 12/28/22 12/27/22 History omeprazole 20 mg capsule,delayed 20 mg PO DAILY 03/20/20 12/28/22 12/27/22 History release oxcarbazepine 300 mg tablet 300 mg PO BID 03/20/20 12/28/22 12/27/22 History aspirin 81 mg tablet,delayed 81 mg PO DAILY 12/28/22 12/28/22 12/27/22 History release insulin glargine U-300 conc 300 36 unit subcut BEDTIME 12/28/22 12/28/22 12/26/22 History unit/mL (1.5 mL) subcutaneous pen (Toujeo SoloStar U-300 Insulin) semaglutide 1 mg/dose (4 mg/3 mL) 1 mg subcut QWEEK 12/28/22 12/28/22 12/27/22 History subcutaneous pen injector (Ozempic) Physical Exam Vital Signs: Vital Signs: Last Vital Signs Temp 98.3 F 12/28/22 08:00 Pulse 72 12/28/22 08:00 Resp 16 12/28/22 08:00 BP 131/62 12/28/22 08:00 Pulse Ox 99 12/28/22 08:00 O2 Del Method Room Air 12/28/22 08:00 BMI result Body Mass Index 50.6 Const: General: cooperative HEENT: Head: Yes normal to inspection Face and sinus: Yes normal facial exam Mouth: Normal oral and palatal mucosa present Teeth and gingiva: dentition normal Eyes: General: appearance normal, both eyes and all related structures Pupils: Equal, round and reactive pupils present Resp: Effort & Inspection: normal respiratory effort Cardio: Rate: regular rate Rhythm: regular rhythm GI: Palpation (GI): Soft to palpation and nontender : General: Yes no CVA tenderness Back/Spine/Pelvis: Back: no CVA tenderness Skin: General skin exam: no rashes or lesions noted Neuro: General: moves all extremities Cranial nerves: Yes Equal, round and reactive pupils present Extrem: Other: missing right third toe first and fourth toe scabbing plantar aspects Psych: Appearance: grossly normal Results Labs 12/28/22 05:13 12/28/22 05:13 Labs: Short CBC 12/27/22 12/28/22 Range/Units 15:25 05:13 WBC 5.5 5.5 (4.8-10.8) X10*3/uL Hgb 11.7 L 11.4 L (12.0-16.0) g/dl Hct 36.5 L 35.1 L (37.0-47.0) % Plt Count 197 196 (160-400) X10*3/uL BMP 12/27/22 12/28/22 15:25 05:13 Sodium 137 136 Potassium 4.1 4.1 Chloride 101 100 Carbon Dioxide 27 27 BUN 18 H 17 H Creatinine 1.38 1.15 Calcium 9.5 9.2 Liver Function 12/27/22 Range/Units 15:25 Total Bilirubin 0.4 (0.0-1.0) mg/dL AST 20 (5-31) U/L ALT 16 (0-31) U/L Alkaline Phosphatase 100 (39-117) U/L Albumin 3.7 (3.5-5.0) g/dL Assessment and Plan (1) Diabetic foot ulcer: Status: Acute She has scaly areas plantar aspects of feet. She has possible infection but not febrile. She has had infection presumably before and is missing third toe. Plan Continue Vancomycin and Zosyn Check MRI for definitive evidence osteomyelitis. Await cultures if any. If OM found Ertapenem or Vancomycin if MRSA found. Time Spent With Patient Time: Total time managing care of this patient today ____ minutes.
[2022-12-28 15:44] VITALS: BP 137/64; PULSE 68; RESP 18; TEMP 35.9; O2SAT 97
[2022-12-28 16:16] LABS: Glucose, Whole Blood 172 mg/dL (60-115)
[2022-12-28 19:51] VITALS: BP 131/63; PULSE 75; RESP 18; TEMP 36.2; O2SAT 97
[2022-12-28 20:34] LABS: Glucose, Whole Blood 245 mg/dL (60-115)
[2022-12-28] MEDS: Gabapentin 300 MG CAPSULE PO (21:17)
[2022-12-28] MEDS: OXcarbazepine 300 MG TABLET PO (21:17)
[2022-12-28] MEDS: Insulin Glargine,Hum.rec.anlog 100 UNIT/ML 10 ML VIAL 28 UNIT SUBCUT (21:18)
[2022-12-29] MEDS: Lactated Ringers 1,000 ML 50 ML IVCONT (00:12)
[2022-12-29] MEDS: vancomycin HCL 1,250 MG in 0.9 % Sodium Chloride 250 ML 166.67 MG IV ×2 (00:21→12:08)
[2022-12-29 04:00] VITALS: BP 124/61; PULSE 87; RESP 16; TEMP 36.1; O2SAT 93
[2022-12-29] MEDS: Piperacillin Sodium/Tazobactam 3.375 GM in 0.9 % Sodium Chloride 50 ML IV ×2 (05:55→11:20)
[2022-12-29] MEDS: Omeprazole 20 MG CAPSULE.DR PO (05:56)
[2022-12-29 07:41] VITALS: BP 131/61; PULSE 73; RESP 16; TEMP 36.6; O2SAT 94
[2022-12-29 07:42] LABS: Glucose, Whole Blood 157 mg/dL (60-115)
[2022-12-29] MEDS: Enoxaparin Sodium 40 MG/0.4 ML SYRINGE SUBCUT (08:37)
[2022-12-29] MEDS: Insulin Lispro 100 UNIT/ML 3 ML VIAL SUBCUT ×8 (08:38→22:58)
[2022-12-29] MEDS: Cholecalciferol (Vitamin D3) 25 MCG TABLET PO (08:38)
[2022-12-29] MEDS: buPROPion HCl XL 300 MG TAB.ER.24H PO (08:38)
[2022-12-29] MEDS: Gabapentin 300 MG CAPSULE PO ×2 (08:39→22:57)
[2022-12-29] MEDS: Aspirin Enteric Coated 81 MG TABLET.DR PO (08:39)
[2022-12-29] MEDS: lisinopriL 10 MG TABLET PO (08:39)
[2022-12-29] MEDS: Atorvastatin Calcium 40 MG TABLET PO (08:39)
[2022-12-29] MEDS: Escitalopram Oxalate 10 MG TABLET PO (08:39)
[2022-12-29] MEDS: OXcarbazepine 300 MG TABLET PO ×2 (08:48→22:57)
--- NOTE | 2022-12-29 11:00 | MHC.CM.PN ---
PER MD ROUNDS, PT NOT YET READY TO DC MRI REPORT PENDING ? [facility] REFERRALS MADE TO [facility] TO FOLLOW DCP TBD PENDING MRI RESULTS
[2022-12-29 11:38] LABS: Creatinine Clr Calc Pharmacy 90.8; Estimated Glomerular Filt Rate 50
[2022-12-29 11:41] LABS: Glucose, Whole Blood 162 mg/dL (60-115)
[2022-12-29 11:42] LABS: Vancomycin Random 12.3 mcg/mL (15-20)
--- NOTE | 2022-12-29 11:50 | HE.PHANOTE ---
RE: CHIDIO Patients level came back this morning at 12.3. Will continue with current dose of 1250 mg Q12H. will get two more doses before next level. next level for 12/30 @1000. Predicted AUC 469 mg/l/hr
[2022-12-29 11:53] LABS: Anion Gap 13 (12-20); Blood Urea Nitrogen 13 mg/dL (9-16); Calcium 10.5 mg/dL (8.4-10.2); Carbon Dioxide 28 mmol/L (22-29); Chloride 103 mmol/L (96-108); Creatinine Clr Calc Pharmacy 95.8; Estimated Glomerular Filt Rate 53; Glucose Random 143 mg/dL (60-115); Potassium 4.1 mmol/L (3.3-5.1); Sodium 140 mmol/L (135-145)
--- NOTE | 2022-12-29 15:22 | HO.PM.IMPN ---
Subjective Subjective Date of Service: 12/29/22 Interval History: seen and examined this morning follow up for foot infection no fever/chills pain controlled Review of Systems Review of Systems: Yes all other systems are reviewed and are negative Constitutional Constitutional: Denies chills and Denies fever(s) ENT Ears, Nose, Mouth, and Throat: Denies dizziness Cardiovascular Cardiovascular: Denies chest pain, Denies palpitations and Denies dyspnea Respiratory Respiratory: Denies cough and Denies dyspnea Gastrointestinal Gastrointestinal: Denies abdominal pain, Denies nausea and Denies vomiting Neurologic Neurologic: Denies dizziness Endocrine Endocrine: Denies palpitations Physical Exam Vital Signs: Vital Signs: Last Vital Signs Temp 97.8 F 12/29/22 07:41 Pulse 73 12/29/22 07:41 Resp 16 12/29/22 07:41 BP 131/61 12/29/22 07:41 Pulse Ox 94 12/29/22 07:41 O2 Del Method Room Air 12/29/22 07:41 BMI result Body Mass Index 50.6 Const: General: cooperative, comfortable, no acute distress, alert and awake Nutritional Appearance: obese Orientation/consciousness: patient oriented x3 Resp: Effort & Inspection: normal respiratory effort, no cough, no respiratory distress and no use of accessory muscles Auscultation: clear to auscultation bilaterally Cardio: Rate: regular rate Heart sounds: S1 normal heart sound present and S2 normal heart sound present GI: Inspection: No distended Palpation (GI): Soft to palpation and nontender Skin: Other: no significant erythema, no drainage Neuro: General: patient oriented x3, moves all extremities and CN's II-XI intact bilaterally Extrem: General: Yes no pedal edema Objective Data Active Medications Acetaminophen (Acetaminophen 325 Mg Tablet) 650 mg PO Q6H PRN PRN Reason: Pain, Mild (Pain Scale 1-3) Last Admin: 12/28/22 08:04 Dose: 650 mg Documented By: SHAHRIAR Aspirin (Aspirin Enteric Coated 81 Mg Tablet.) 81 mg PO DAILY [facility] Last Admin: 12/29/22 08:39 Dose: 81 mg Documented By: MADELAINE Atorvastatin Calcium (Atorvastatin Calcium 40 Mg Tablet) 40 mg PO DAILY [facility] Last Admin: 12/29/22 08:39 Dose: 40 mg Documented By: MADELAINE Bupropion HCl (Bupropion Hcl Xl 300 Mg Tab.Er.24h) 300 mg PO DAILY [facility] Last Admin: 12/29/22 08:38 Dose: 300 mg Documented By: MADELAINE Dextrose (Dextrose 50 % 25 Gm/50 Ml Syringe) 25 gm IVPUSH Q15M PRN; Protocol PRN Reason: per Hypoglycemia Standing Ord. Docusate Sodium (Docusate Sodium 100 Mg Capsule) 100 mg PO DAILY PRN PRN Reason: Constipation Enoxaparin Sodium (Enoxaparin Sodium 40 Mg/0.4 Ml Syringe) 40 mg SUBCUT Q24H [facility] Last Admin: 12/29/22 08:37 Dose: 40 mg Documented By: MADELAINE Escitalopram Oxalate (Escitalopram Oxalate 10 Mg Tablet) 10 mg PO DAILY [facility] Last Admin: 12/29/22 08:39 Dose: 10 mg Documented By: MADELAINE Gabapentin (Gabapentin 300 Mg Capsule) 300 mg PO BID [facility] Last Admin: 12/29/22 08:39 Dose: 300 mg Documented By: MADELAINE Glucose (Glucose Gel 15 Gm Gel..Gram.) 15 gm PO Q15M PRN; Protocol PRN Reason: per Hypoglycemia Standing Ord. Piperacillin Sod/Tazobactam (Sod 3.375 gm/ Sodium Chloride) 50 mls @ 100 mls/hr IV Q6H [facility] Last Infusion: 12/29/22 11:56 Dose: 0 mls/hr Documented By: MADELAINE Lactated Ringer's (Lr) 1,000 mls @ 50 mls/hr IVCONT .Q20H [facility] Last Admin: 12/29/22 00:12 Dose: 50 mls/hr Documented By: STEPHANIE Vancomycin HCl 1,250 mg/ (Sodium Chloride) 250 mls @ 166.667 mls/hr IV Q12H [facility] Last Infusion: 12/29/22 13:44 Dose: 0 mls/hr Documented By: MADELAINE Insulin Glargine (Insulin Glargine,Hum.Rec.Anlog 100 Unit/Ml 10 Ml Vial) 28 unit SUBCUT BEDTIME [facility] Last Admin: 12/28/22 21:18 Dose: 28 unit Documented By: STEPHANIE Insulin Human Lispro (Insulin Lispro 100 Unit/Ml 3 Ml Vial) 0 unit SUBCUT QIDACHS [facility]; Protocol Last Admin: 12/29/22 12:02 Dose: 2 unit Documented By: MADELAINE Insulin Human Lispro (Insulin Lispro 100 Unit/Ml 3 Ml Vial) 5 unit SUBCUT QIDACHS [facility] Last Admin: 12/29/22 12:03 Dose: 5 unit Documented By: MADELAINE Lisinopril (Lisinopril 10 Mg Tablet) 10 mg PO DAILY [facility]; Protocol Last Admin: 12/29/22 08:39 Dose: 10 mg Documented By: MADELAINE Nitroglycerin (Nitroglycerin 0.4 Mg Tab.Subl) 0.4 mg SUBLINGUAL Q5M PRN PRN Reason: chest pain Omeprazole (Omeprazole 20 Mg Capsule.Dr) 20 mg PO DAILY@0630 [facility] Last Admin: 12/29/22 05:56 Dose: 20 mg Documented By: STEPHANIE Ondansetron HCl (Ondansetron Hcl 4 Mg/2 Ml Vial) 4 mg IVPUSH Q8H PRN PRN Reason: Nausea and Vomiting Oxcarbazepine (Oxcarbazepine 300 Mg Tablet) 300 mg PO BID [facility] Last Admin: 12/29/22 08:48 Dose: 300 mg Documented By: MADELAINE Pharmacy Consult (Consult Rx Perform Med Rec) 1 each MISCELLANE ONCE PRN PRN Reason: Consult order Pharmacy Consult (Consult Rx Vancomycin Dosing) 1 each MISCELLANE DAILY PRN PRN Reason: Consult order Sodium Chloride (0.9 % Sodium Chloride Flush 3 Ml Syringe) 3 ml IVFLUSH QSHIFT [facility] Last Admin: 12/29/22 15:19 Dose: Not Given Documented By: MADELAINE Non-Admin Reason: IV Running Vitamin D (Cholecalciferol (Vitamin D3) 25 Mcg Tablet) 25 mcg PO DAILY [facility] Last Admin: 12/29/22 08:38 Dose: 25 mcg Documented By: MADELAINE Labs 12/28/22 05:13 12/29/22 11:19 Labs: Laboratory Results - last 24 hr 12/28/22 12/28/22 12/29/22 16:05 20:21 07:01 Anion Gap Estim Creat Clear Calc Estimated GFR POC Glucose 172 H 245 H 157 H Random Glucose Calcium Random Vancomycin 12/29/22 12/29/22 12/29/22 11:19 11:19 11:19 Anion Gap 13 Estim Creat Clear Calc 95.8 90.8 Estimated GFR 53 50 POC Glucose Random Glucose 143 H Calcium 10.5 H D Random Vancomycin 12.3 L 12/29/22 11:30 Anion Gap Estim Creat Clear Calc Estimated GFR POC Glucose 162 H Random Glucose Calcium Random Vancomycin Microbiology Microbiology Results: Microbiology 12/27/22 00:00 Blood Culture - Preliminary Blood - Venous No growth after 24 hours. 12/27/22 19:53 Blood Culture - Preliminary Blood - Venous No growth after 24 hours. Assessment and Plan (1) Diabetic foot ulcer: Status: Acute Plan 52-year-old female past medical history of diabetes and diabetic polyneuropathy presents the hospital with diabetic foot ulcer Diabetic foot ulcer/acute osteomyelitis no evidence of sepsis MRI + for osteo of 4th distal phalanx seen by ID - will need 6 weeks of IV ertapenem on discharge blood cultures negative x 24 hours PICC line ordered diabetes continue Lantus ss, ada diet GERD continue PPI hyperlipidemia continue statin HTN continue lisinopril mood Continue home meds Morbid obesity. BMI 50.7 Discussed importance of weight management as this may be contributing to worsening of other comorbidities DVT prophylaxis: Carleen Attending Dr. Branch continued hospital stay for IV antibiotics and further evaluation with Infectious Disease input Time Spent With Patient Time: Total time managing care of this patient today ____ minutes. Quality Stroke Does the patient have a stroke diagnosis?: No VTE Prior VTE?: No VTE Risk Level:: Medical - moderate - high VTE Device Contraindication: Treatment Not Indicated VTE Drug Contraindication: N/A - Med Ordered
[2022-12-29 15:42] VITALS: BP 139/66; PULSE 77; RESP 20; TEMP 36; O2SAT 95
[2022-12-29 16:02] LABS: Glucose, Whole Blood 160 mg/dL (60-115)
[2022-12-29 20:00] VITALS: BP 145/86; PULSE 82; RESP 20; TEMP 36; O2SAT 98
[2022-12-29 21:05] LABS: Glucose, Whole Blood 177 mg/dL (60-115)
[2022-12-29] MEDS: 0.9 % Sodium Chloride Flush 3 ML SYRINGE IVFLUSH (22:57)
[2022-12-29] MEDS: Insulin Glargine,Hum.rec.anlog 100 UNIT/ML 10 ML VIAL 28 UNIT SUBCUT (22:58)
[2022-12-30 03:26] VITALS: BP 142/67; PULSE 63; RESP 16; TEMP 36; O2SAT 94
[2022-12-30] MEDS: Omeprazole 20 MG CAPSULE.DR PO (06:12)
[2022-12-30 07:12] LABS: Creatinine Clr Calc Pharmacy 91.5; Estimated Glomerular Filt Rate 50
[2022-12-30 07:32] VITALS: BP 122/56; PULSE 63; RESP 16; TEMP 36.1; O2SAT 98
[2022-12-30 07:47] LABS: Glucose, Whole Blood 165 mg/dL (60-115)
[2022-12-30] MEDS: Enoxaparin Sodium 40 MG/0.4 ML SYRINGE SUBCUT (08:57)
[2022-12-30] MEDS: Insulin Lispro 100 UNIT/ML 3 ML VIAL SUBCUT ×3 (08:57→12:35)
[2022-12-30] MEDS: Cholecalciferol (Vitamin D3) 25 MCG TABLET PO (08:59)
[2022-12-30] MEDS: 0.9 % Sodium Chloride Flush 3 ML SYRINGE IVFLUSH (08:59)
[2022-12-30] MEDS: lisinopriL 10 MG TABLET PO (08:59)
[2022-12-30] MEDS: Atorvastatin Calcium 40 MG TABLET PO (08:59)
[2022-12-30] MEDS: buPROPion HCl XL 300 MG TAB.ER.24H PO (08:59)
[2022-12-30] MEDS: Aspirin Enteric Coated 81 MG TABLET.DR PO (08:59)
[2022-12-30] MEDS: OXcarbazepine 300 MG TABLET PO (08:59)
[2022-12-30] MEDS: Gabapentin 300 MG CAPSULE PO (08:59)
[2022-12-30] MEDS: Escitalopram Oxalate 10 MG TABLET PO (08:59)
--- NOTE | 2022-12-30 11:13 | P.PICC_ITS ---
PICC Line Insertion NPICC Diagnosis: Osteomyelitis Indication: assisted antibiotics needed Pertinent Labs: reviewed Technique: Following informed consent including risks, benefits and alternatives and using sterile technique including cap and mask, sterile gown, glove and drape, the right arm was prepped and draped in the usual sterile fashion of full barrier technique with CHG. Following completion of [place] Protocol the skin and soft tissues were anesthetized with 1% Lidocaine plain. Using ultrasound guidance, right basilic vein access was obtained on first attempt. Over an 0.018 wire through peel-away sheath, a 4FR Single lumen PICC line was positioned. Catheter length is 47 CM internal length, at the 0 CM bandar external length, for a total trimmed length of 47 CM. The procedure was performed in S272. Tip verification was performed by Tiburcio Brito with Honorio 3CG. Tip located in SVC. Ultrasound was used to document vein patency and for needle entry. A formal ultrasound picture and cardiac rhythm strip was recorded. [employer] [employer] has released the line for use and it is currently dressed with a StatLock, Tegaderm, and CHG disc. Verification has been performed for blood return and line patency. Arm Circumference: 38.5 CM Equipment: [email or web address] PowerPICC SOLO Catheter Type: 4FR Single lumen PASV PICC Lot #: [id number]
[2022-12-30 11:21] LABS: Glucose, Whole Blood 126 mg/dL (60-115)
[2022-12-30 11:25] VITALS: BP 129/64; PULSE 80; RESP 18; TEMP 36.1; O2SAT 96
--- NOTE | 2022-12-30 13:30 | P.DS_ITS ---
DS: Providers Provider Date of Service: 12/30/22 Date of admission: 12/27/22 23:56 Date of discharge: 12/30/22 Primary care physician: Edwin Benitez MD Consults: 12/27/22 23:54 Consult to Infectious Diseases Routine Consulting Provider: [facility] [place] Reason for consultation: Diabetic foot infection Has provider been notified: No Attending physician on discharge: Andrew Branch Discharging clinician: Keren Mccormick DS: Diagnosis Discharge Diagnosis (1) Diabetic foot ulcer: Status: Acute (2) Acute osteomyelitis: Status: Acute DS: Summary Hospital Course Hospital Course: From H&P on the day of admission 52-year-old female past medical history of diabetes, depression, diabetic polyneuropathy, HTN, HLD, morbid obesity, vitamin-D deficiency, restrictive lung disease, comes into the hospital with complaints of foot ulcer.? Daughter at bedside, speaks mostly Fijian but daughter helped give me most of the history.? It appears that about 2 days ago patient developed an ulcer on her right big toe as well as on the 4th toe on the right foot.? Initially it was pink but has now developed into a draining ulcer with redness and swelling.? Patient is also describing pain 8/10, nonradiating, constant, throbbing.? Patient denies any fever no chills, no chest pain, no shortness of breath, no abdominal pain nausea or vomiting, no diarrhea constipation, no urinary symptoms and no lower extremity edema. On arrival to the ED patient hemodynamically stable with no significant abnormal vitals Labs are significant for WBC count of 5.5, ESR of 20, CRP of 4.3, labs otherwise unremarkable Patient started on IV antibiotics will be admitted for further management Diabetic foot ulcer/acute osteomyelitis no evidence of sepsis. MRI obtained and positive for acute osteo of the 4th distal phalanx. She was seen by ID - will need 6 weeks of IV ertapenem on [place] [employer]. blood cultures have remained negative. She was evaluated by Infectious Diseases who recommended 6 weeks of IV ertapenem. A PICC line was placed on December 30 and she will be discharged home with daily ertapenem for 6 weeks, end date 02/09/2023. She has had informational session from [facility]. Her 1st dose of ertapenem was given prior to discharge and her PICC line was noted to be working properly. She will be discharged home with visiting nurses to assist with medication administration. Time Spent with Patient Time attestation: Total time managing care of this patient today ____ minutes. Discharge coordination time: Greater than 30 minutes Quality: Safe Use of Opioids Does Pt have an Active Cancer Diagnosis on the Problem List?: No Quality: Stroke Does the patient have a stroke diagnosis?: No Physical Exam Vital Signs: Vital Signs: Last Vital Signs Temp 96.9 F 12/30/22 11:25 Pulse 80 12/30/22 11:25 Resp 18 12/30/22 11:25 BP 129/64 12/30/22 11:25 Pulse Ox 96 12/30/22 11:25 O2 Del Method Room Air 12/30/22 11:25 BMI result Body Mass Index 50.6 Const: General: cooperative, comfortable, no acute distress, alert and awake Nutritional Appearance: obese Orientation/consciousness: patient oriented x3 Resp: Effort & Inspection: normal respiratory effort, no cough, no respiratory distress and no use of accessory muscles Auscultation: clear to auscultation bilaterally Cardio: Rate: regular rate Heart sounds: S1 normal heart sound present and S2 normal heart sound present GI: Inspection: No distended Palpation (GI): Soft to palpation and nontender Skin: Other: no significant erythema, no drainage Neuro: General: patient oriented x3, moves all extremities and CN's II-XI intact bilaterally Extrem: General: Yes no pedal edema DS: Data Data Completed and Pending Labs on day of discharge: Laboratory Results - last 24 hr 12/29/22 12/29/22 12/30/22 15:48 20:43 05:34 Creatinine 1.13 Estim Creat Clear Calc 91.5 Estimated GFR 50 POC Glucose 160 H 177 H 12/30/22 12/30/22 07:35 11:11 Creatinine Estim Creat Clear Calc Estimated GFR POC Glucose 165 H 126 H Preliminary micro results at discharge 12/27/22 00:00 Blood Culture - Preliminary Blood - Venous No growth after 48 hours. 12/27/22 19:53 Blood Culture - Preliminary Blood - Venous No growth after 48 hours. Discharge Plan Discharge Anticipated Discharge Date/Time: 12/30/22 15:00 Patient Disposition: Home Health Service Discharge Diagnosis: acute osteomyelitis of the right fourth toe Referrals: Edwin Benitez MD [Primary Care Provider] - 1 Week Stacey Robertson MD [Physician] - 1 Week Discharge Medications: Continued cholecalciferol (vitamin D3) 50 mcg (2,000 unit) capsule 2,000 unit PO DAILY Qty: 30 3RF atorvastatin 40 mg tablet 40 mg PO DAILY Qty: 30 2RF aspirin 81 mg tablet,delayed release (DR/EC) 81 mg PO DAILY [employer] U-300 Insulin 300 unit/mL (1.5 mL) insulin pen 36 unit subcut BEDTIME Ozempic 1 mg/dose (4 mg/3 mL) Pen Injector 1 mg SUBCUT QWEEK oxcarbazepine 300 mg tablet 300 mg PO BID omeprazole 20 mg capsule,delayed release(DR/EC) 20 mg PO DAILY escitalopram oxalate 10 mg tablet 10 mg PO DAILY Rx Instructions: take 1.5 tablets daily bupropion HCl 300 mg tablet extended release 24 hr 300 mg PO QAM gabapentin 300 mg capsule 300 mg PO BID lisinopril 10 mg tablet 10 mg PO DAILY nitroglycerin 0.4 mg tablet, sublingual 0.4 mg sublingual Q5M PRN (Reason: chest pain) Qty: 20 1RF Rx Instructions: do not exceed 3 doses per episode No Action (DME) Dexcom G6 Tongue And Quarter Stitcher Misc See Rx Instructions .ROUTE .MEDSUPPLY Qty: 1 0RF Rx Instructions: As directed (DME) Dexcom G6 Sensor Device See Rx Instructions .ROUTE .MEDSUPPLY Qty: 3 11RF Rx Instructions: As directed every 10 days (DME) Dexcom G6 Transmitter Device See Rx Instructions .ROUTE .MEDSUPPLY Qty: 1 3RF Rx Instructions: As directed one every 3 months (DME) FreeStyle Lite Strips Strip See Rx Instructions .Route Qty: 120 11RF Rx Instructions: As directed testing 4x daily. Discharge Orders: Discharge Order (Routine); Ordered 12/30/22 Ordered By: Keren Mccormick Activity on Discharge: As tolerated Stand Alone Forms: Patient Portal Discharge page Care Plan Goals: resolution of acute infection Health Concerns: acute osteomyelitis of the right fourth toe Plan of Treatment: 6 weeks of IV ertapenem 1gm daily recommend weekly cbc, bmp starting on Tuesday 01/02 outpatient follow up with wound care call to schedule follow up with PCP Assessment: see discharge summary
[2022-12-30] MEDS: Ertapenem Sodium 1 GM in 0.9 % Sodium Chloride 50 ML IV (14:45)
--- NOTE | 2022-12-30 15:50 | MHC.CM.PN ---
PT WILL DC HOME TODAY WITH [facility] HAS CONFIRMED THEY HAVE EVERYTHING THEY NEED TO DELIVER MEDS TODAY [facility] WILL SEE PT AT HOME TOMORROW CM MET WITH PT AND DAUGHTER WHO REPORT THEY HAVE DONE THIS BEFORE AND HAVE NO CONCERNS WITH PT GOING HOME TODAY DAUGHTER WILL TRANSPORT
== END 2022-12-30 15:39 | disposition home health service (06) | DRG 638 ==
LOC: HO.ED 23:16 → HO.EDOVER 12-28 → HO.S3 12-28 06:44
PROVIDERS: Nurse Practitioner Acute Care; Physician Assistant; Admitting Provider Internal Medicine; Emergency Provider Emergency Medicine; PCP Internal Medicine; Visit Provider Physician Assistant Medical
DX: E11.69 Type 2 diabetes mellitus with other specified complication (principal); M86.171 Other acute osteomyelitis, right ankle and foot; Z68.43 Body mass index [BMI] 50.0-59.9, adult; E11.621 Type 2 diabetes mellitus with foot ulcer; E11.65 Type 2 diabetes mellitus with hyperglycemia; I12.9 Hypertensive chronic kidney disease with stage 1 through stage 4 chronic kidney disease, or unspecified chronic kidney disease; N18.30 Chronic kidney disease, stage 3 unspecified; E11.22 Type 2 diabetes mellitus with diabetic chronic kidney disease; E11.42 Type 2 diabetes mellitus with diabetic polyneuropathy; L97.519 Non-pressure chronic ulcer of other part of right foot with unspecified severity; Z79.4 Long term (current) use of insulin; Z79.82 Long term (current) use of aspirin; Z79.85 Long-term (current) use of injectable non-insulin antidiabetic drugs; Z79.899 Other long term (current) drug therapy
CPT/HCPCS: 36415; 36573; 73630; 73700; 73720; 80048; 80053; 80202; 82565; 82947; 83605; 83735; 85025; 85652; 86140; 87040; 99285; A9585; C1751; J1335; J1650; J2185; J2543; J3370; J3371

== ENCOUNTER → 2022-12-27 23:56 | Outpatient (BNV) | payer OTHER, SELFPAY | PROVIDERS: Admitting Provider Internal Medicine; Emergency Provider Emergency Medicine; PCP Internal Medicine; Visit Provider Internal Medicine | DX: E11.621 Type 2 diabetes mellitus with foot ulcer (principal); L97.509 Non-pressure chronic ulcer of other part of unspecified foot with unspecified severity | CPT/HCPCS: 99222 ==

== ENCOUNTER → 2022-12-27 23:56 | Outpatient (BNV) | payer OTHER, SELFPAY | PROVIDERS: Admitting Provider Internal Medicine; Emergency Provider Emergency Medicine; PCP Internal Medicine; Visit Provider Internal Medicine | DX: E11.621 Type 2 diabetes mellitus with foot ulcer (principal); L97.509 Non-pressure chronic ulcer of other part of unspecified foot with unspecified severity | CPT/HCPCS: 99223; 99232; 99239; 99499 ==

== ENCOUNTER 2023-01-02 12:06 | Outpatient (REF) | payer OTHER, SELFPAY ==
[2023-01-02 12:12] LABS: MANUAL DIFF FLAG NO
[2023-01-02 12:34] LABS: Basophils Percent Auto 0.5 % (0-2); Eosinophils Absolute Auto 0.3 X10*3/uL (0.0-0.4); Eosinophils Percent Auto 4.9 % (0-4); Hematocrit 37.4 % (37.0-47.0); Imm Gran Abs Auto 0.02 X10*3/uL (0.00-0.03); Imm Gran Pct Auto 0.4 % (0.0-0.4); Lymphocytes Absolute Auto 1.8 X10*3/uL (1.2-4.9); Lymphocytes Percent Auto 33.2 % (20-40); Mean Corpuscular HGB Conc 32.1 g/dl (31.0-35.0); Mean Corpuscular Hemoglobin 27.8 pg (27.0-33.0); Mean Corpuscular Volume 86.6 fL (80.0-98.0); Mean Platelet Volume 11.9 fL (9.4-12.3); Monocytes Absolute Auto 0.5 X10*3/uL (0.1-1.2); Monocytes Percent Auto 8.1 % (2-11); Neutrophils Absolute Auto 2.9 x10*3/uL (2.0-8.3); Neutrophils Percent Auto 52.9 % (45-73); Platelet Count 244 X10*3/uL (160-400); Red Blood Count 4.32 X10*6/uL (4.20-5.50); Red Cell Distribution Width 12.1 % (11.0-16.0); White Blood Count 5.5 X10*3/uL (4.8-10.8)
[2023-01-02 13:32] LABS: Anion Gap 15 (12-20); Blood Urea Nitrogen 18 mg/dL (9-16); Calcium 9.1 mg/dL (8.4-10.2); Carbon Dioxide 26 mmol/L (22-29); Chloride 103 mmol/L (96-108); Estimated Glomerular Filt Rate 44; Glucose Fasting 143 mg/dL (60-99); Potassium 4.4 mmol/L (3.3-5.1); Sodium 140 mmol/L (135-145)
== END 2023-01-02 12:07 | disposition home or self-care (01) ==
LOC: HO.HVNA 12:06
PROVIDERS: Visit Provider Internal Medicine
DX: E11.621 Type 2 diabetes mellitus with foot ulcer (principal)
CPT/HCPCS: 36415; 80048; 85025

== ENCOUNTER 2023-01-09 12:29 | Outpatient (RCR) | payer OTHER, SELFPAY ==
--- NOTE | ~2023-01-09 | XR_ITS ---
EXAMINATION: XR CHEST CLINICAL INFORMATION: Pretreatment, nonhealing wound COMPARISON: 01/19/2023, 08/28/2019 TECHNIQUE: 2 views of the chest. FINDINGS: Right PICC line redemonstrated with tip at expected level of SVC. There is no gross pneumothorax. Heart size normal. No focal consolidation to suggest pneumonia. No pleural effusion. Degenerative changes in the thoracic spine. XR/XR chest 2V IMPRESSION: No focal consolidation to suggest pneumonia.
[2023-02-04 08:04] LABS: MANUAL DIFF FLAG NO
[2023-02-04 08:23] LABS: Basophils Percent Auto 0.4 % (0-2); Eosinophils Absolute Auto 0.2 X10*3/uL (0.0-0.4); Eosinophils Percent Auto 4.5 % (0-4); Hematocrit 34.1 % (37.0-47.0); Hemoglobin 11.4 g/dl (12.0-16.0); Imm Gran Abs Auto 0.02 X10*3/uL (0.00-0.03); Imm Gran Pct Auto 0.4 % (0.0-0.4); Lymphocytes Percent Auto 41.1 % (20-40); Mean Corpuscular HGB Conc 33.4 g/dl (31.0-35.0); Mean Corpuscular Hemoglobin 28.1 pg (27.0-33.0); Mean Corpuscular Volume 84.2 fL (80.0-98.0); Mean Platelet Volume 10.3 fL (9.4-12.3); Monocytes Absolute Auto 0.5 X10*3/uL (0.1-1.2); Monocytes Percent Auto 9.5 % (2-11); Neutrophils Absolute Auto 2.1 x10*3/uL (2.0-8.3); Neutrophils Percent Auto 44.1 % (45-73); Platelet Count 213 X10*3/uL (160-400); Red Blood Count 4.05 X10*6/uL (4.20-5.50); Red Cell Distribution Width 12.7 % (11.0-16.0); White Blood Count 4.8 X10*3/uL (4.8-10.8)
[2023-02-04 08:31] LABS: Estimated Average Glucose 194 mg/dL; Hemoglobin A1c % 8.4 %
[2023-02-04 08:46] LABS: Anion Gap 13 (12-20); Blood Urea Nitrogen 18 mg/dL (9-16); C Reactive Protein 1.54 mg/dL (< or = 0.50); Carbon Dioxide 28 mmol/L (22-29); Chloride 105 mmol/L (96-108); Estimated Glomerular Filt Rate 45; Glucose Random 167 mg/dL (60-115); Potassium 4.6 mmol/L (3.3-5.1); Sodium 141 mmol/L (135-145)
[2023-02-04 09:10] LABS: Erythrocyte Sedimentation Rate 22 MM/HR (0-20)
== END 2023-05-18 17:00 | disposition home or self-care (01) ==
LOC: HO.WCC 12:29
PROVIDERS: PCP Internal Medicine; Visit Provider Physician Assistant
DX: E11.621 Type 2 diabetes mellitus with foot ulcer (principal); L97.512 Non-pressure chronic ulcer of other part of right foot with fat layer exposed; L97.516 Non-pressure chronic ulcer of other part of right foot with bone involvement without evidence of necrosis; E11.69 Type 2 diabetes mellitus with other specified complication; M86.471 Chronic osteomyelitis with draining sinus, right ankle and foot; E11.40 Type 2 diabetes mellitus with diabetic neuropathy, unspecified; L84 Corns and callosities; Z79.4 Long term (current) use of insulin; Z79.2 Long term (current) use of antibiotics; Z79.82 Long term (current) use of aspirin; Z79.899 Other long term (current) drug therapy; Z89.421 Acquired absence of other right toe(s)
CPT/HCPCS: 11042; 11044; 15275; 36415; 71046; 80048; 83036; 84134; 85025; 85652; 86140; 97597; 99183; 99212; Q4187

== ENCOUNTER 2023-01-10 18:20 | Outpatient (REF) | payer OTHER, SELFPAY ==
[2023-01-10 18:23] LABS: MANUAL DIFF FLAG NO
[2023-01-10 18:57] LABS: Basophils Absolute Auto 0.1 X10*3/uL (0.0-0.2); Basophils Percent Auto 0.7 % (0-2); Eosinophils Absolute Auto 0.4 X10*3/uL (0.0-0.4); Eosinophils Percent Auto 5.1 % (0-4); Hemoglobin 12.2 g/dl (12.0-16.0); Imm Gran Abs Auto 0.03 X10*3/uL (0.00-0.03); Imm Gran Pct Auto 0.4 % (0.0-0.4); Lymphocytes Absolute Auto 2.1 X10*3/uL (1.2-4.9); Lymphocytes Percent Auto 30.8 % (20-40); Mean Corpuscular HGB Conc 32.1 g/dl (31.0-35.0); Mean Corpuscular Hemoglobin 27.7 pg (27.0-33.0); Mean Corpuscular Volume 86.2 fL (80.0-98.0); Mean Platelet Volume 12.3 fL (9.4-12.3); Monocytes Absolute Auto 0.6 X10*3/uL (0.1-1.2); Monocytes Percent Auto 9.1 % (2-11); Neutrophils Absolute Auto 3.7 x10*3/uL (2.0-8.3); Neutrophils Percent Auto 53.9 % (45-73); Platelet Count 246 X10*3/uL (160-400); Red Blood Count 4.41 X10*6/uL (4.20-5.50); Red Cell Distribution Width 11.9 % (11.0-16.0); White Blood Count 6.8 X10*3/uL (4.8-10.8)
[2023-01-10 18:59] LABS: Anion Gap 17 (12-20); Blood Urea Nitrogen 23 mg/dL (9-16); Calcium 9.4 mg/dL (8.4-10.2); Carbon Dioxide 28 mmol/L (22-29); Chloride 100 mmol/L (96-108); Estimated Glomerular Filt Rate 43; Glucose Random 101 mg/dL (60-115); Potassium 4.5 mmol/L (3.3-5.1); Sodium 140 mmol/L (135-145)
== END 2023-01-10 18:21 | disposition home or self-care (01) ==
LOC: HO.HVNA 18:20
PROVIDERS: Visit Provider Internal Medicine
DX: M86.9 Osteomyelitis, unspecified (principal)
CPT/HCPCS: 36415; 80048; 85025

== ENCOUNTER 2023-01-18 14:20 | Outpatient (AMB) | payer OTHER, SELFPAY ==
--- OUTSIDE RECORDS SUMMARY | 2023-01-18 14:22 | XMS_ITS | Patient Health Record ---
Author Name Unknown Organization [facility] Address [address] [address] Care Team Providers Care Clerical Order Filler Name Role Phone Garry Zuleta MD, Edwni Primary Care Provide r Unavailable Cristofer Hilario Unavailable [phone] ALLERGIES No Known Allergies RESULTS Component Value Reference Range Notes HEMOGLOBIN A1C (GLYCOHEMOGLO BIN) Reviewed date:11/02/2022 02:58:46 PM Interpretation: Performing Lab: Notes/Report: TOTAL HEMOGLOBIN (HGBA1C) HEMOGLOBIN A1C (HH) HEMOGLOBIN A1C % (HH) 11.2 ESTIMATED AVG GLUCOSE REASON FOR REFERRAL No Information MEDICATIONS Medication SIG (Take, Route, Frequency, Duration) Notes Start Date End Date Status traMADol HCl 50 MG 1 tablet as needed Orally Once a day Active Omeprazole 20 MG 1 capsule 30 minutes before morning meal Orally Once a day for 30 day(s) 08/12/2019 Active Neurontin 300 MG 1 capsule Orally Onc e a day for 30 day(s) Active Lisinopril 10 MG 1 tablet Orally Once a day for 30 day(s) 08/12/2019 Active Lexapro 10 MG 1 tablet Orally Once a day for 30 day(s) Active Fluticasone Propionate 50 MCG/ACT 1 spray in each nostril Nasally Once a day for 30 day(s) Active Escitalopram Oxalate 10 MG TAKE 1 TABLET BY MOUTH AT BEDTIME Oral for 30 Active Glucose 4 GM as directed Orally Active Colace 100 MG 1 capsule as needed Orally Once a day for 30 day(s) Active traZODone HCl 50 MG 1 tablet at bedtime as needed Orally Once a day for 30 day(s) Not-Taking Simvastatin 10 MG 1 tablet in the even ing Orally Once a day for 30 day(s) 08/12/2019 Active OXcarbazepine 300 MG TAKE 1 TABLET BY MO UT TWICE DAILY IN THE MORNING AND IN THE EVENING Oral for 30 Active Gabapentin 300 MG TAKE 1 CAPSULE BY MO UTH TWICE DAILY IN THE MORNING AND AT BEDTIME Oral for 30 Not-Taking NovoLOG 100 UNIT/ML as directed Subcutaneous Not-Taking Acarbose 50 MG as directed Orally Active Augmentin 500-125 MG 1 tablet Orally sean ry 8 hrs for 7 day(s) Not-Taking Extra Depth Orthopedic Shoes (1 Pair) with Customized Heat Molded Multidensity Innersoles (3 Pair) as directed Dx: NIDDM/Polyneuropathy (E11.42), Hammertoe Foot Deformity (M20.41,M20.42), Preulcerative Skin Lesion(s) (L85.1 08/29/2022 Active zzzCompression Stockings 20-30mm Hg . . . for . Active Ammonium Lactate 12 % 1 application to affected area Externally to feet Twice a day for 30 days Active flonase 50 mcg/act A ctive Trulicity Active Vitamin D3 50 MCG (1999 UT) TAKE 1 CAPSULE BY MOUTH EVERY MORNING Oral for 30 Active Trulicity 0.75 MG/0.5ML as directed Subcutaneous Active buPROPion HCl ER (XL) 300 MG TAKE 1 TABLET BY MOUTH EVERY MORNING Oral for 30 Active Aspirin EC 81 MG as directed Orally 08/12/2019 Active Artificial Tears 0.1-0.3 % as directed Ophthalmic Activ e Doxycycline Hyclate 100 MG 1 tablet Orally Once a day for 10 day(s) Not-Taking IMMUNIZATIONS Vaccine Route Administration Date Status Comme nts COVID-19 Moderna Vaccine Unknown 08/11/2020 Administere d COVID-19 Moderna Vaccine Unknown 09/08/2020 Administere d Influenza Unknown 02/18/2019 Administered Influenza Unknown 11/18/2019 Administered SOCIAL HISTORY Tobacco Use: Social History Observation Description Date Details (start date - stop date) Never Smoker NA - NA Sex Assigned At : Social History Observation Description Sex Assigned At Unknown Tobacco Use/Smoking Question Answer Notes Are you a: nonsmoker Additional Findings: Tobacco Non-User Current no n-smoker Alcohol Screen Question Answer Notes Did you have a drink containing alcohol in the p ast year? Yes Points 0 Interpretation Negative Tobacco use other than smoking: Question Answer Notes Are you an other tobacco user? No PROBLEMS Problem Type ICD Code Onset Dates Problem Status W/U Status Risk SNOMED Code Notes Problem Other hammer toe(s) (acquired), right foot (M20.41) Active confirmed Acquired hamme r toe of right foot ([id number] ) Problem Other hammer toe(s) (acquired), left foot (M20.42) Active confirmed Acquired hamme r toe of left foot (3004079457960390 ) Problem Type 2 diabetes mellitus with diabetic polyneuropathy (E11.42) Active confirmed Polyneuropathy due to type 2 diabetes mellitus (310041259) VITAL SIGNS Height 5ft 9.5in in 11/02/2022 Weight 336 lbs 11/02/2022 BMI 48.9 kg/m2 11/02/2022 Encounters Encounter Location Date Provider Diagnosis [address] [address] 03/02/2022 Cristofer Hilario Type 2 diabetes mellitus with diabetic polyneuropathy E11.42 ; Tinea unguium B35.1 and Generalized edema R60.[address] [address] 04/13/2022 Cristofer Hilario Contusion of right great toe with damage to nail, initial encounter S90.211A ; Non-pressure chronic ulcer of other part of right foot limited to breakdown of skin L97.511 ; Pain in right toe(s) M79.674 and 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 [facility] [address] [address] 05/18/2022 Cristofer Yanelis [facility] [address] [place] [phone] 05/18/2022 Cristofer Hilario [facility] [address] [place] [address] 05/19/2022 Cristofer Hilario [address] [address] 05/19/2022 Cristofer Hilario [address] [address] 08/29/2022 Cristofer Hilario Type 2 diabetes mellitus with diabetic polyneuropathy E11.42 ; Tinea unguium B35.1 ; Other hammer toe(s) (acquired), right foot M20.41 and Other hammer toe(s) (acquired), left foot M20.[address] [facility] [address] 11/02/2022 Cristofer Hilario Type 2 diabetes mellitus with diabetic polyneuropathy E11.42 ; Tinea unguium B35.1 ; Other hammer toe(s) (acquired), right foot M20.41 ; Other hammer toe(s) (acquired), left foot M20.42 and Subungual hematoma of right foot, initial encounter S90.221A [facility] [address] 12/27/2022 [facility] Yanelis [address] [address] 12/30/[address] [facility] [address] [address] 01/09/2023 Cristofer Hilario ASSESSMENTS Encounter Date Diagnosis Assessment Notes Treatment Notes Treatment Clinical Notes 03/02/2022 Tinea unguium (ICD-1 0 - B35.1) 03/02/2022 Type 2 diabetes mellitus with diabetic polyneuropathy (ICD-10 - E11.42) 04/13/2022 Non-pressure chronic ulcer of other part of right foot limited to breakdown of skin (ICD-10 - L97.511) 04/13/2022 Contusion of right great toe with damage to nail, initial encounter (ICD-10 - S90.211A) 08/29/2022 Tinea unguium (ICD-1 0 - B35.1) 08/29/2022 Type 2 diabetes mellitus with diabetic polyneuropathy (ICD-10 - E11.42) 11/02/2022 Tinea unguium (ICD-1 0 - B35.1) 11/02/2022 Type 2 diabetes mellitus with diabetic polyneuropathy (ICD-10 - E11.42) 11/02/2022 Other hammer toe(s) (acquired), right foot (ICD-10 - M20.41) 08/29/2022 Other hammer toe(s) (acquired), right foot (ICD-10 - M20.41) Patient Educated with: DIABETIC FOOT CARE INSTRUCTIONS.pdf (DIABETIC FOOT CARE INSTRUCTIONS.pdf ) 04/13/2022 Pain in right toe(s) (ICD-10 - M79.674) 03/02/2022 Generalized edema (ICD-10 - R60.1) 04/13/2022 Arthritis of big toe (ICD-10 - M19.079) 08/29/2022 Other hammer toe(s) (acquired), left foot (ICD-10 - M20.42) 11/02/2022 Other hammer toe(s) (acquired), left foot (ICD-10 - M20.42) 11/02/2022 Subungual hematoma o f right foot, initial encounter (ICD-10 - S90.221A) PLAN OF TREATMENT Pending Test Test Name Order Date X ray : Foot, right 3V 04/13/2022 81851-UEKRNOV NAIL, 6 OR MORE 08/29/2022 19592-BVJKQEP NAIL, 6 OR MORE 11/02/2022 00711-NYRKFBI NAIL, 6 OR MORE 08/02/2021 73290-VXVAWKI NAIL, 6 OR MORE 10/11/2021 81362-KTPQPKF NAIL, 6 OR MORE 12/22/2021 24718-ZIDRTCX NAIL, 6 OR MORE 03/02/2022 47024-IPWUMOP NAIL, 6 OR MORE 11/18/2019 46504-WKWUTMP NAIL, 6 OR MORE 02/03/2020 25677-CYNKNFI NAIL, 6 OR MORE 06/01/2020 69909-WTRXUPL NAIL, 6 OR MORE 08/10/2020 37814-CZSMFIC NAIL, 6 OR MORE 10/19/2020 72354-XAEWMZZ NAIL, 6 OR MORE 12/28/2020 61450-PWHACKQ NAIL, 6 OR MORE 03/15/2021 59588-MSLZVWF NAIL, 6 OR MORE 05/24/2021 56352-ASLCRQL NAIL, 1-5 08/12/2019 13360- Debride <25 sq cm 04/13/2022 19040- Debride <25 sq cm 06/01/2020 47851- Debride <25 sq cm 02/03/2020 94978-AEZN SKIN LESIONS, OVER 4 02/03/20 80155-KBBJ SKIN LESIONS, OVER 4 11/18/19 80509-KNSX SKIN LESIONS, OVER 4 06/01/20 01399-NLEO SKIN LESIONS, OVER 4 08/10/19 14871-SZWD SKIN LESIONS, OVER 4 05/24/20 73991-ZOMZ SKIN LESIONS, OVER 4 03/15/20 79220-ESZL SKIN LESIONS, OVER 4 12/29/19 76751-QUWN SKIN LESIONS, OVER 4 10/20/19 87476-ZJGM SKIN LESIONS, OVER 4 11/03/19 87652-GTWN SKIN LESIONS, OVER 4 08/30/19 74637-FWVS SKIN LESIONS, OVER 4 03/02/20 71498-MSEJ SKIN LESIONS, OVER 4 12/23/19 96749-LPYR SKIN LESIONS, OVER 4 10/12/19 17563-MUMR SKIN LESIONS, OVER 4 08/02/19 60069-UONJ SKIN LESIONS, 2 TO 4 08/12/19 02846-Qrbu. Subungual Hematoma 3 Next Appt Details Provider Name:Cristofer Hilario , 02/23/2023 03:45:00 PM, [address] [facility], [facility] [address], [place], [address], Insurance Providers Payer Name Payer Address Payer Phone Subscriber Number Group Number Insured Name Patient Relationship to Insured Coverage Start Date Coverage End Date [facility] [employer] Claims [address] [place] [address] [phone] [id number] Dora Fernandez Self - patient is the insured MEDICAL (GENERAL) HISTORY Medical History History ICD Code CAD Chicken pox Depression Diabetes mellitus, Type II High blood pressure Kidney disease Poor circulation Transfusions ulcer Reflux Chronic Kidney Disease, Stage III (moder ate) Obesity Diabetic foor ulcer Hypertension, essential, benign Neuropathy edema Hyperlipidemia Charcot foot, due to DM Varicose veins Diabetic foot Ulcer Surgical History Surgery Date(Month/Year) 1/2 toe removal left ft due to ulcer 202 0
--- NOTE | 2023-01-18 14:23 | MHC.OFFVIS ---
Intake Vital Signs 01/18/23 14:36 Weight 337 lb BP 136/80 Pulse 96 Pulse Oximetry (%) 98 Intake Visit Reasons: Ref.[facility], F/U,pic[facility] line Allergies No Known Allergies Allergy (Unknown, Verified 01/18/23 14:37) HPI Ref.[facility], F/U,picc line HPI Details I had seen her 12/28 for right foot infection,OM. She was supposed to have six weeks IV Ertapenem and took only 2 1/2 weeks and had reaction with itching and stopped it. She has no fever or chills now. She started po Doxycycline and has only 2/4 weeks left. She feels foot looks better. [facility] Medical History Arm swelling Charcot foot due to diabetes mellitus Chronic kidney disease, stage 3 Depression Diabetic polyneuropathy Dyspnea on exertion Gallstones Hyperlipidemia LDL goal <100 Hypertension Morbid obesity Obesity due to excess calories Restrictive lung disease Type 2 diabetes mellitus with chronic kidney disease Vitamin D deficiency Surgical History History of partial amputation of toe History of partial ray amputation of third toe of right foot History of total hysterectomy with bilateral salpingo-oophorectomy (BSO) Hx of colonoscopy Hx of wisdom tooth extraction Family History Father Type 2 diabetes mellitus Mother Type 2 diabetes mellitus Diverticulitis Hypertension Social History Household Members: Family Household Members Other:: , mother Housing: Apartment 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 See if needed but no return made as going to [facility]. Stop IV antibiotics on 02/08. See if needed prn need. (2) Diabetic foot ulcer: Code(s): E11.621 - Type 2 diabetes mellitus with foot ulcer; L97.509 - Non-pressure chronic ulcer of other part of unspecified foot with unspecified severity Orders: Orders IR cvc remove any age Today M86.10 - Other acute osteomyelitis, unspecified site IR cvc remove any age Today M86.10 - Other acute osteomyelitis, unspecified site US extremity nonvascular Today M79.89 - Other specified soft tissue disorders IR cvc insert peripheral Today M86.10 - Other acute osteomyelitis, unspecified site Medications: Discontinued insulin glargine U-300 conc 54 units (0.18 mL) subcut BEDTIME 90 days 4.5 mL 2RF E11.22 - Type 2 diabetes mellitus with diabetic chronic kidney disease insulin aspart U-100 as directed 12 - 26 units (0.12 - 0.26 mL) subcut TID 60 mL 0RF E11.22 - Type 2 diabetes mellitus with diabetic chronic kidney disease Coding Level of Care Code Est Pt Level 3 (41053) Diagnoses Acute osteomyelitis M86.10 Diabetic foot ulcer E11.621; L97.509
[2023-01-18 14:36] VITALS: BP 136/80; PULSE 96; O2SAT 98
== END 2023-01-18 15:15 | disposition home or self-care (01) ==
LOC: HO.HID 14:20
PROVIDERS: PCP Internal Medicine; Visit Provider Internal Medicine
DX: M86.10 Other acute osteomyelitis, unspecified site (principal); E11.621 Type 2 diabetes mellitus with foot ulcer; L97.509 Non-pressure chronic ulcer of other part of unspecified foot with unspecified severity
CPT/HCPCS: 99213

== ENCOUNTER → 2023-01-18 14:20 | Outpatient (BNVA) | payer OTHER, SELFPAY | PROVIDERS: PCP Internal Medicine; Visit Provider Internal Medicine | DX: E11.621 Type 2 diabetes mellitus with foot ulcer (principal); L97.509 Non-pressure chronic ulcer of other part of unspecified foot with unspecified severity; M86.171 Other acute osteomyelitis, right ankle and foot; Z79.2 Long term (current) use of antibiotics | CPT/HCPCS: 99212 ==

== ENCOUNTER 2023-01-19 11:20 | Outpatient (REF) | payer OTHER, SELFPAY ==
--- NOTE | ~2023-01-19 | IR_ITS ---
Replacement of the PICC line. INDICATIONS: The previously placed 4 Vincentian single-lumen PICC line has been pulled out with the tip of the catheter in the right axillary vein. After informed written consent was obtained in official timeout was performed immediately prior to the procedure. PROCEDURE: After the skin was prepped and draped in usual fashion. Under fluoroscopic guidance the previously placed PICC line which is positioned within the proximal axillary vein was removed over a 0.018 guidewire. A 5 Vincentian peel-away sheath was placed. A guidewire was advanced into the SVC. A 5 Vincentian 40 cm in length single lumen PICC line was then placed with the tip of the catheter in the inferior aspect of the SVC. This was confirmed under fluoroscopic guidance. The catheter was flushed with heparinized saline and secured to the skin surface. IR/IR cvc replace non tunneled IMPRESSION: Replacement of the 4 Vincentian single-lumen PICC line with a 5 Vincentian single-lumen PICC line measuring 40 cm in length. The tip of the catheter is in the inferior aspect of the SVC.
--- NOTE | ~2023-01-19 | US_ITS ---
EXAMINATION: US VENOUS WITH DOPPLER UPPER EXTREMITY, RIGHT CLINICAL INFORMATION: Evaluate for clot COMPARISON: None available. TECHNIQUE: Ultrasound of the upper extremity is performed using compression sonography and color and pulse Doppler flow with assessment of augmentation of flow. There is also imaging and Doppler assessment of the jugular and subclavian veins. Spectral analysis with color-flow imaging is performed. FINDINGS: PICC in place with overlying bandages limiting evaluation of the brachial vein in its mid to distal segments and basilic vein. PICC visualized along the axillary and basilic vein. Respiratory variation, normal compression, and augmented flow are noted throughout the upper extremity including the axillary, brachial, cubital, and radial and ulnar veins. There is normal flow in the internal jugular and subclavian veins. There is no visible deep or superficial thrombophlebitis. If the patient's symptoms progress, a followup ultrasound in 5 -7 days might be of value to exclude proximal propagation from a nonvisualized distal arm vein. US/US venous duplex UE RT IMPRESSION: 1. No DVT demonstrated in the right upper extremity. 2. PICC in place with overlying bandages limiting evaluation of the brachial vein in its mid to distal segments and basilic vein.
== END 2023-01-19 11:21 | disposition home or self-care (01) ==
LOC: HO.US 11:20
PROVIDERS: PCP Internal Medicine; Visit Provider Internal Medicine
DX: M79.89 Other specified soft tissue disorders (principal)
CPT/HCPCS: 36573; 36580; 93971

== ENCOUNTER → 2023-01-19 11:28 | Outpatient (BNV) | payer OTHER, SELFPAY | PROVIDERS: PCP Internal Medicine; Visit Provider Radiology Vascular & Interventional Radiology | DX: M86.10 Other acute osteomyelitis, unspecified site (principal); Z45.2 Encounter for adjustment and management of vascular access device | CPT/HCPCS: 36580; 77001 ==

== ENCOUNTER 2023-01-22 16:31 | Outpatient (REF) | payer OTHER, SELFPAY ==
[2023-01-22 16:36] LABS: MANUAL DIFF FLAG NO
[2023-01-22 16:40] LABS: Basophils Percent Auto 0.2 % (0-2); Eosinophils Absolute Auto 0.2 X10*3/uL (0.0-0.4); Eosinophils Percent Auto 4.3 % (0-4); Hematocrit 35.1 % (37.0-47.0); Hemoglobin 11.6 g/dl (12.0-16.0); Imm Gran Abs Auto 0.02 X10*3/uL (0.00-0.03); Imm Gran Pct Auto 0.4 % (0.0-0.4); Lymphocytes Absolute Auto 1.5 X10*3/uL (1.2-4.9); Lymphocytes Percent Auto 33.2 % (20-40); Mean Corpuscular Hemoglobin 28.6 pg (27.0-33.0); Mean Corpuscular Volume 86.7 fL (80.0-98.0); Mean Platelet Volume 11.6 fL (9.4-12.3); Monocytes Absolute Auto 0.4 X10*3/uL (0.1-1.2); Monocytes Percent Auto 8.6 % (2-11); Neutrophils Absolute Auto 2.5 x10*3/uL (2.0-8.3); Neutrophils Percent Auto 53.3 % (45-73); Platelet Count 154 X10*3/uL (160-400); Red Blood Count 4.05 X10*6/uL (4.20-5.50); Red Cell Distribution Width 12.3 % (11.0-16.0); White Blood Count 4.6 X10*3/uL (4.8-10.8)
[2023-01-22 17:10] LABS: Anion Gap 18 (12-20); Blood Urea Nitrogen 17 mg/dL (9-16); Calcium 9.2 mg/dL (8.4-10.2); Carbon Dioxide 24 mmol/L (22-29); Chloride 102 mmol/L (96-108); Estimated Glomerular Filt Rate 49; Glucose Random 135 mg/dL (60-115); Potassium 4.8 mmol/L (3.3-5.1); Sodium 139 mmol/L (135-145)
== END 2023-01-22 16:32 | disposition home or self-care (01) ==
LOC: HO.HVNA 16:31
PROVIDERS: Visit Provider Internal Medicine
DX: L03.90 Cellulitis, unspecified (principal)
CPT/HCPCS: 36415; 80048; 85025

== ENCOUNTER 2023-01-30 14:01 | Outpatient (REF) | payer OTHER, SELFPAY ==
[2023-01-30 14:07] LABS: MANUAL DIFF FLAG NO
[2023-01-30 14:10] LABS: Basophils Percent Auto 0.2 % (0-2); Eosinophils Absolute Auto 0.2 X10*3/uL (0.0-0.4); Eosinophils Percent Auto 3.4 % (0-4); Hematocrit 33.1 % (37.0-47.0); Hemoglobin 10.7 g/dl (12.0-16.0); Imm Gran Abs Auto 0.01 X10*3/uL (0.00-0.03); Imm Gran Pct Auto 0.2 % (0.0-0.4); Lymphocytes Absolute Auto 1.8 X10*3/uL (1.2-4.9); Lymphocytes Percent Auto 41.3 % (20-40); Mean Corpuscular HGB Conc 32.3 g/dl (31.0-35.0); Mean Corpuscular Hemoglobin 27.7 pg (27.0-33.0); Mean Corpuscular Volume 85.8 fL (80.0-98.0); Mean Platelet Volume 11.7 fL (9.4-12.3); Monocytes Absolute Auto 0.6 X10*3/uL (0.1-1.2); Monocytes Percent Auto 13.9 % (2-11); Neutrophils Absolute Auto 1.8 x10*3/uL (2.0-8.3); Platelet Count 117 X10*3/uL (160-400); Red Blood Count 3.86 X10*6/uL (4.20-5.50); Red Cell Distribution Width 12.9 % (11.0-16.0); White Blood Count 4.5 X10*3/uL (4.8-10.8)
[2023-01-31 01:47] LABS: Anion Gap 13 (12-20); Blood Urea Nitrogen 20 mg/dL (9-16); Calcium 8.7 mg/dL (8.4-10.2); Carbon Dioxide 27 mmol/L (22-29); Chloride 104 mmol/L (96-108); Estimated Glomerular Filt Rate 41; Glucose Random 148 mg/dL (60-115); Potassium 4.6 mmol/L (3.3-5.1); Sodium 139 mmol/L (135-145)
== END 2023-01-30 14:02 | disposition home or self-care (01) ==
LOC: HO.HVNA 14:01
PROVIDERS: Visit Provider Internal Medicine
DX: M86.9 Osteomyelitis, unspecified (principal)
CPT/HCPCS: 36415; 80048; 85025

== ENCOUNTER 2023-02-06 12:34 | Outpatient (REF) | payer OTHER, SELFPAY ==
[2023-02-06 13:29] LABS: Estimated Average Glucose 183 mg/dL
[2023-02-06 13:35] LABS: Estimated Glomerular Filt Rate 39; Total Protein 7.2 g/dL (6.5-8.0)
[2023-02-06 13:39] LABS: Erythrocyte Sedimentation Rate 20 MM/HR (0-20)
== END 2023-02-06 12:35 | disposition home or self-care (01) ==
LOC: HO.HVNA 12:34
PROVIDERS: Visit Provider Physician Assistant
DX: E11.621 Type 2 diabetes mellitus with foot ulcer (principal)
CPT/HCPCS: 36415; 82565; 83036; 84155; 85652

== ENCOUNTER 2023-02-09 13:54 | Outpatient (REF) | payer OTHER, SELFPAY ==
[2023-02-09 14:00] LABS: MANUAL DIFF FLAG NO
[2023-02-09 14:05] LABS: Basophils Percent Auto 0.5 % (0-2); Eosinophils Absolute Auto 0.2 X10*3/uL (0.0-0.4); Eosinophils Percent Auto 3.9 % (0-4); Hematocrit 33.2 % (37.0-47.0); Hemoglobin 11.1 g/dl (12.0-16.0); Imm Gran Abs Auto 0.03 X10*3/uL (0.00-0.03); Imm Gran Pct Auto 0.5 % (0.0-0.4); Lymphocytes Absolute Auto 1.9 X10*3/uL (1.2-4.9); Lymphocytes Percent Auto 32.9 % (20-40); Mean Corpuscular HGB Conc 33.4 g/dl (31.0-35.0); Mean Corpuscular Hemoglobin 28.8 pg (27.0-33.0); Mean Platelet Volume 11.2 fL (9.4-12.3); Monocytes Absolute Auto 0.5 X10*3/uL (0.1-1.2); Neutrophils Absolute Auto 3.1 x10*3/uL (2.0-8.3); Neutrophils Percent Auto 53.2 % (45-73); Platelet Count 216 X10*3/uL (160-400); Red Blood Count 3.86 X10*6/uL (4.20-5.50); Red Cell Distribution Width 13.2 % (11.0-16.0); White Blood Count 5.9 X10*3/uL (4.8-10.8)
[2023-02-09 15:16] LABS: Anion Gap 12 (12-20); Blood Urea Nitrogen 17 mg/dL (9-16); Calcium 9.4 mg/dL (8.4-10.2); Carbon Dioxide 28 mmol/L (22-29); Chloride 102 mmol/L (96-108); Estimated Glomerular Filt Rate 47; Glucose Random 280 mg/dL (60-115); Potassium 4.8 mmol/L (3.3-5.1); Sodium 137 mmol/L (135-145)
== END 2023-02-09 13:55 | disposition home or self-care (01) ==
LOC: HO.HVNA 13:54
PROVIDERS: Visit Provider Internal Medicine
DX: E11.621 Type 2 diabetes mellitus with foot ulcer (principal)
CPT/HCPCS: 36415; 80048; 85025

== ENCOUNTER 2023-02-10 14:31 | Outpatient (AMB) | payer OTHER, SELFPAY ==
[2023-02-10 14:32] VITALS: BP 128/80; PULSE 98; O2SAT 96; BMI 49.6
--- NOTE | 2023-02-10 14:32 | MHC.OFFVIS ---
Intake Vital Signs 02/10/23 14:32 Height 5 ft 9 in Weight 336 lb BMI 49.6 BP 128/80 Blood Pressure Location Lt brachial Position Sitting Pulse 98 Pulse Source Pulse Oximeter Pulse Oximetry (%) 96 Intake Visit Reasons: F/U,IV Medication Digital Photographic Printer Required: Yes Digital Photographic Printer Name: Mahnaz Calderon CMA Allergies No Known Allergies Allergy (Unknown, Verified 01/18/23 14:37) HPI F/U,IV Medication HPI Details She is here for followup infection foot. The itching was due to PICC line tape and not Ertapenem so she has been continuing on Ertapenem and stopped it February 08. She feels well and wishes to remain on po antibiotics while she is getting HBO. [facility] Medical History Arm swelling Charcot foot due to diabetes mellitus Chronic kidney disease, stage 3 Depression Diabetic polyneuropathy Dyspnea on exertion Gallstones Hyperlipidemia LDL goal <100 Hypertension Morbid obesity Obesity due to excess calories Restrictive lung disease Type 2 diabetes mellitus with chronic kidney disease Vitamin D deficiency Surgical History History of partial amputation of toe History of partial ray amputation of third toe of right foot History of total hysterectomy with bilateral salpingo-oophorectomy (BSO) Hx of colonoscopy Hx of wisdom tooth extraction Family History Father Type 2 diabetes mellitus Mother Type 2 diabetes mellitus Diverticulitis Hypertension Social History Household Members: Family Household Members Other:: , mother Housing: Apartment 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) Alcohol intake: never Patient Tobacco Use Status: Never used Tobacco service: No Review of Systems Const All systems reviewed & are unremarkable except as noted in HPI and below Physical Exam Vital Signs: Last Vital Signs Pulse 98 02/10/23 14:32 BP 128/80 02/10/23 14:32 Pulse Ox 96 02/10/23 14:32 BMI result Body Mass Index 49.6 Const Other: General: cooperative Orientation/consciousness: patient oriented x3 HEENT Other: Head: Yes normal to inspection Mouth: Normal oral and palatal mucosa present Eyes General: appearance normal, both eyes and all related structures Pupils: Equal, round and reactive pupils present Resp Effort & Inspection: normal respiratory effort Cardio Rate: regular rate Rhythm: regular rhythm GI Palpation (GI): Soft to palpation and nontender General: Yes no CVA tenderness Back/Spine/Pelvis Back: no CVA tenderness Skin General skin exam: no rashes or lesions noted Neuro General: patient oriented x3 Cranial nerves: Yes CN's II-XII intact bilaterally and Yes Equal, round and reactive pupils present Extrem Other: foot improving in appearance General: Yes normal to inspection Psych Appearance: grossly normal Assessment & Plan Assessment & Plan (1) Acute osteomyelitis: Comment: She has possible staph or strep It is improving Code(s): M86.10 - Other acute osteomyelitis, unspecified site Plan: Po Doxycycline for one month and one refill. See in one month. Orders: Orders IR cvc remove any age Today M86.10 - Other acute osteomyelitis, unspecified site Medications: New doxycycline hyclate 100 mg PO BID 60 tabs 1RF 30 days Discontinued insulin glargine U-300 conc 54 units (0.18 mL) subcut BEDTIME 90 days 4.5 mL 2RF E11.22 - Type 2 diabetes mellitus with diabetic chronic kidney disease insulin aspart U-100 as directed 12 - 26 units (0.12 - 0.26 mL) subcut TID 60 mL 0RF E11.22 - Type 2 diabetes mellitus with diabetic chronic kidney disease Coding Level of Care Code Est Pt Level 3 (74371) Diagnoses Acute osteomyelitis M86.10
--- OUTSIDE RECORDS SUMMARY | 2023-02-10 14:33 | XMS_ITS | Patient Health Record ---
Author Name Unknown Organization [facility] Address [address] [place] [address] Care Team Providers Care Lead Designer Name Role Phone Garry Zuleta MD, Edwin Primary Care Provide r Unavailable Cristofer Hilario Unavailable [phone] ALLERGIES No Known Allergies RESULTS Component Value [...] Acquired hamme r toe of right foot (8363240694480016 ) Problem Other hammer toe(s) (acquired), left foot (M20.42) Active confirmed Acquired hamme r toe of left foot (8171537406085851 ) Problem Type 2 diabetes mellitus with diabetic polyneuropathy (E11.42) Active confirmed Polyneuropathy due to type 2 diabetes mellitus (384600256) VITAL SIGNS Height 5ft 9.5in in 11/02/2022 Weight 336 lbs 11/02/2022 BMI 48.9 kg/m2 11/02/2022 PROCEDURES Procedure Date Ordered Date Performed Result Body Sit e 49363-LBHWOHJ NAIL, 6 OR MORE 03/02/2022 N/A 96628-ZHNX SKIN LESIONS, OVER 4 03/02/2022 N/A 33972- Debride <25 sq cm 04/13/2022 N/A 00170-WCHLZIN NAIL, 6 OR MORE 08/29/2022 N/A 28784-WHSS SKIN LESIONS, OVER 4 08/29/2022 N/A 06579-HDWCNJI NAIL, 6 OR MORE 11/02/2022 N/A 09271-JTMY SKIN LESIONS, OVER 4 11/02/2022 N/A 21642-Txqf. Subungual Hematoma 11/02/2022 N/A Encounters Encounter Location Date Provider Diagnosis [facility] [address] [address] 03/02/2022 Cristofer Hilario Type 2 diabetes mellitus with diabetic polyneuropathy E11.42 ; Tinea unguium B35.1 and Generalized edema R60.[address] [facility] [address] 04/13/2022 Cristoferreyna MazaYanelis Contusion of right great toe with damage to nail, initial encounter S90.211A ; Non-pressure chronic ulcer of other part of right foot limited to breakdown of skin L97.511 ; Pain in right toe(s) M79.674 and 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 [facility] [address] [address] 05/18/2022 [facility] Yanelis [facility] [address] [address] 05/18/2022 [facility] [address] [place] [phone] 05/19/2022 [facility] Yan[facility] [address] [place] [phone] 05/19/2022 [facility] [address] [place] [phone] 08/29/2022 Cristofer Hilario Type 2 diabetes mellitus with diabetic polyneuropathy E11.42 ; Tinea unguium B35.1 ; Other hammer toe(s) (acquired), right foot M20.41 and Other hammer toe(s) (acquired), left foot M20.[address] [address] 11/02/2022 Cristofer Hilario Type 2 diabetes mellitus with diabetic polyneuropathy E11.42 ; Tinea unguium B35.1 ; Other hammer toe(s) (acquired), right foot M20.41 ; Other hammer toe(s) (acquired), left foot M20.42 and Subungual hematoma of right foot, initial encounter S90.221A [address] [address] 12/27/2022 [facility] Yanelis [facility] [address] [place] [phone] 12/30/2022 [facility] Yanelis [address] [address] 01/09/2023 Cristofer Hilario ASSESSMENTS Encounter Date Diagnosis [...] X ray : Foot, right 3V 04/13/2022 31831-JDPNVPC NAIL, 6 OR MORE 08/29/2022 44498-HUOVSIR NAIL, 6 OR MORE 11/02/2022 25088-PCBWOCH NAIL, 6 OR MORE 08/02/2021 83852-AFOWOJQ NAIL, 6 OR MORE 10/11/2021 80926-GDGJZWF NAIL, 6 OR MORE 12/22/2021 85949-OSJPJKY NAIL, 6 OR MORE 03/02/2022 79800-PVBJONN NAIL, 6 OR MORE 11/18/2019 58920-WKYVFYW NAIL, 6 OR MORE 02/03/2020 87133-RYZYERG NAIL, 6 OR MORE 06/01/2020 55093-VIQNAKL NAIL, 6 OR MORE 08/10/2020 50729-AIEHVKI NAIL, 6 OR MORE 10/19/2020 68137-EDYKEUS NAIL, 6 OR MORE 12/28/2020 35097-AUUTWXR NAIL, 6 OR MORE 03/15/2021 66686-VEMPAVT NAIL, 6 OR MORE 05/24/2021 22486-PGVXMFJ NAIL, 1-5 08/12/2019 36437- Debride <25 sq cm 04/13/2022 47957- Debride <25 sq cm 06/01/2020 09672- Debride <25 sq cm 02/03/2020 35749-KKCT SKIN LESIONS, OVER 4 02/03/20 20 63626-DZTI SKIN LESIONS, OVER 4 11/18/19 20 93944-JROF SKIN LESIONS, OVER 4 06/01/20 20 77235-AMOK SKIN LESIONS, OVER 4 08/10/19 21 89160-GESK SKIN LESIONS, OVER 4 05/24/20 21 92470-EBLX SKIN LESIONS, OVER 4 03/15/20 21 06069-DHZT SKIN LESIONS, OVER 4 12/29/19 21 50031-ROUR SKIN LESIONS, OVER 4 10/20/19 21 45091-MHMF SKIN LESIONS, OVER 4 11/03/19 23 70930-IVVZ SKIN LESIONS, OVER 4 08/30/19 23 67213-LNKF SKIN LESIONS, OVER 4 03/02/20 22 27126-FZKQ SKIN LESIONS, OVER 4 12/23/19 22 69211-SQGX SKIN LESIONS, OVER 4 10/12/19 22 49492-PRPT SKIN LESIONS, OVER 4 08/02/19 22 99437-KDDB SKIN LESIONS, 2 TO 4 08/12/19 20 40989-Qdaq. Subungual Hematoma 3 Next Appt Details Provider Name:Cristofer Hilario , 02/23/2023 03:45:00 PM, [address] [facility] [place], [facility] [address], [place], [address], Insurance Providers Payer Name Payer Address Payer Phone Subscriber Number Group Number Insured Name Patient Relationship to Insured Coverage Start Date Coverage End Date [facility] [employer] Claims [address] [place] [address] [phone] [id number] Dora Fernandez Self - patient is the [...]
== END 2023-02-10 15:17 | disposition home or self-care (01) ==
LOC: HO.HID 14:31
PROVIDERS: PCP Internal Medicine; Visit Provider Internal Medicine
DX: M86.10 Other acute osteomyelitis, unspecified site (principal)
CPT/HCPCS: 99213

== ENCOUNTER → 2023-02-10 14:31 | Outpatient (BNVA) | payer OTHER, SELFPAY | PROVIDERS: PCP Internal Medicine; Visit Provider Internal Medicine | DX: M86.171 Other acute osteomyelitis, right ankle and foot (principal) | CPT/HCPCS: 99212 ==

== ENCOUNTER 2023-04-26 13:53 | Outpatient (AMB) | payer OTHER, SELFPAY ==
--- NOTE | 2023-04-26 14:03 | A.OFFVIS_ITS ---
Intake Vital Signs 04/26/23 14:09 Height 5 ft 9 in Weight 345 lb 4 oz BMI 51.0 BP 144/65 H Blood Pressure Location Lt brachial Position Sitting Pulse 98 Intake Visit Reasons: right 4th toe, poss amp Intake Note: Patient is seen in office for evaluation of right toe, possible amputation. Patient c/o: had a wound/ulcer onset 12/30/22, was on antibiotics, seeing wound center daily, area around is healing, still has an open area which is not closing, have tried different methods with no relief, area is white around the hole. Oil Laboratory Analyst Required: No Accompanied by: Daughter Allergies No Known Allergies Allergy (Unknown, Verified 04/26/23 14:10) Medication List - Last Reconciled 04/26/23 by Dylan Lim MD aspirin 81 mg PO DAILY atorvastatin 40 mg PO BEDTIME blood sugar diagnostic (FreeStyle Lite Strips) As directed testing 4x daily. blood-glucose transmitter (Dexcom G6 Transmitter device) As directed one every 3 months bupropion HCl 300 mg PO QAM cholecalciferol (vitamin D3) 2,000 units PO DAILY escitalopram oxalate 10 mg PO DAILY gabapentin 300 mg PO BID insulin glargine U-300 conc (Toujeo SoloStar U-300 Insulin) 36 units subcut BEDTIME lisinopril 10 mg PO DAILY nitroglycerin 0.4 mg sublingual Q5M PRN omeprazole 20 mg PO DAILY oxcarbazepine 300 mg PO BID semaglutide (Ozempic) 1 mg subcut QWEEK HPI right 4th toe, poss amp HPI Details 53-year-old female referred for amputation 4th toe on the right. She has had this nonhealing ulcer and has been following the [facility] for this. This has not improved so she wanted to proceed with amputation She has noticed this toe ulcer on the 4th toe since December,. She had been on various most of treatment including hyperbaric therapy, antibiotics with special wound care at [facility]. However, this has not really improved. She continues to the ulcer with some drainage. She does describe some discomfort although this seems to be painful. She is a known diabetic. She had amputation on the 3rd toe on the same foot in 2018 for similar problems. This has healed well. [facility] Medical History Toe ulcer due to DM Arm swelling Restrictive lung disease Dyspnea on exertion Morbid obesity Gallstones Obesity due to excess calories Chronic kidney disease, stage 3 Charcot foot due to diabetes mellitus Depression Vitamin D deficiency Hyperlipidemia LDL goal <100 Hypertension Diabetic polyneuropathy Type 2 diabetes mellitus with chronic kidney disease Surgical History Hx of colonoscopy History of partial ray amputation of third toe of right foot Hx of wisdom tooth extraction History of partial amputation of toe (2018) History of total hysterectomy with bilateral salpingo-oophorectomy (BSO) Family History Father Type 2 diabetes mellitus Mother Type 2 diabetes mellitus Diverticulitis Hypertension Social History Household Members: Family Household Members Other:: , mother Housing: Apartment Do you presently have visiting nurse or other home services: Yes (CARE INFORMATION ASSOCIATE) Alcohol intake: never Patient Tobacco Use Status: Never used Tobacco service: No Review of Systems Const Denies chills and Denies fever(s) Card Denies chest pain, Denies dyspnea and Denies dyspnea on exertion Resp Denies cough, Denies dyspnea and Denies dyspnea on exertion GI Denies hematochezia and Denies change in bowel habits Denies hematuria Musc Denies back pain and Denies limited range of motion Neuro Denies focal weakness and Denies convulsions Psych Denies depression and Denies mood swings Physical Exam Vital Signs: Last Vital Signs Pulse 98 04/26/23 14:09 BP 144/65 H 04/26/23 14:09 BMI result Body Mass Index 51.0 Const Other: Morbidly obese, walks with a cane General: comfortable and no acute distress Orientation/consciousness: patient oriented x3 Neck Neck: Yes no lymphadenopathy Resp Auscultation: clear to auscultation bilaterally Cardio Rhythm: regular rhythm GI Palpation (GI): Soft to palpation, nontender and no guarding Neuro General: patient oriented x3 Extrem Other: 4th toe on the right with note of an ulcer at the tip, scanty drainage, ulcer about more than 1 cm in diameter, the entire toe is edematous and swollen with no cellulitis; well-healed amputation site on the 3rd toe good palpable pulses on the dorsalis pedis Assessment & Plan Assessment & Plan (1) Toe ulcer due to DM: Code(s): E11.621 - Type 2 diabetes mellitus with foot ulcer; L97.509 - Non-pressure chronic ulcer of other part of unspecified foot with unspecified severity Plan: She has had this toe ulcer that does not heal at all despite multiple modes of treatment. Wants to proceed with amputation of the 4th toe. I explained to her the technique of amputation of the 4th toe under anesthesia in the operating room. I reviewed the risks including but not limited to bleeding, infections, poor healing, as well as the benefits and alternatives. I explained to her what to expect postoperatively. She has given consent She has good pulses on the foot so it is unlikely that she has significant peripheral artery disease Coding Level of Care Code Est Pt Level 3 (56727) Diagnoses Toe ulcer due to DM E11.621; L97.509
[2023-04-26 14:09] VITALS: BP 144/65; PULSE 98; BMI 51.0
== END 2023-04-26 14:24 | disposition home or self-care (01) ==
PROVIDERS: PCP Internal Medicine; Visit Provider Surgery
DX: E11.621 Type 2 diabetes mellitus with foot ulcer (principal); L97.509 Non-pressure chronic ulcer of other part of unspecified foot with unspecified severity
CPT/HCPCS: 99213

== ENCOUNTER → 2023-04-26 13:53 | Outpatient (BNVA) | payer OTHER, SELFPAY | PROVIDERS: PCP Internal Medicine; Visit Provider Surgery | DX: E11.621 Type 2 diabetes mellitus with foot ulcer (principal); L97.509 Non-pressure chronic ulcer of other part of unspecified foot with unspecified severity; L97.519 Non-pressure chronic ulcer of other part of right foot with unspecified severity; Z89.421 Acquired absence of other right toe(s) | CPT/HCPCS: 99212 ==

== ENCOUNTER 2023-05-16 15:22 | Outpatient (REF) | payer OTHER, SELFPAY ==
[2023-05-16 15:33] LABS: MANUAL DIFF FLAG NO
[2023-05-16 17:32] LABS: Basophils Percent Auto 0.6 % (0-2); Eosinophils Absolute Auto 0.3 X10*3/uL (0.0-0.4); Eosinophils Percent Auto 3.8 % (0-4); Hematocrit 35.7 % (37.0-47.0); Hemoglobin 11.6 g/dl (12.0-16.0); Imm Gran Abs Auto 0.02 X10*3/uL (0.00-0.03); Imm Gran Pct Auto 0.3 % (0.0-0.4); Lymphocytes Absolute Auto 2.1 X10*3/uL (1.2-4.9); Lymphocytes Percent Auto 30.1 % (20-40); Mean Corpuscular HGB Conc 32.5 g/dl (31.0-35.0); Mean Corpuscular Hemoglobin 28.2 pg (27.0-33.0); Mean Corpuscular Volume 86.9 fL (80.0-98.0); Mean Platelet Volume 12.3 fL (9.4-12.3); Monocytes Absolute Auto 0.7 X10*3/uL (0.1-1.2); Monocytes Percent Auto 9.8 % (2-11); Neutrophils Absolute Auto 3.8 x10*3/uL (2.0-8.3); Neutrophils Percent Auto 55.4 % (45-73); Platelet Count 230 X10*3/uL (160-400); Red Blood Count 4.11 X10*6/uL (4.20-5.50); Red Cell Distribution Width 11.9 % (11.0-16.0); White Blood Count 6.8 X10*3/uL (4.8-10.8)
[2023-05-16 18:18] LABS: Anion Gap 12 (12-20); Blood Urea Nitrogen 18 mg/dL (9-16); Calcium 9.6 mg/dL (8.4-10.2); Carbon Dioxide 28 mmol/L (22-29); Chloride 102 mmol/L (96-108); Estimated Glomerular Filt Rate 42; Glucose Random 313 mg/dL (60-115); Potassium 3.8 mmol/L (3.3-5.1); Sodium 138 mmol/L (135-145)
[2023-05-17 09:33] LABS: Estimated Average Glucose 209 mg/dL; Hemoglobin A1c % 8.9 % (<6.0)
== END 2023-05-16 15:23 | disposition home or self-care (01) ==
LOC: HO.LAB 15:22
PROVIDERS: Surgery; PCP Internal Medicine; Visit Provider Internal Medicine
DX: Z01.818 Encounter for other preprocedural examination (principal); E11.621 Type 2 diabetes mellitus with foot ulcer; L97.509 Non-pressure chronic ulcer of other part of unspecified foot with unspecified severity; M86.9 Osteomyelitis, unspecified
CPT/HCPCS: 36415; 80048; 83036; 85025

== ENCOUNTER 2023-06-08 13:24 | Outpatient (AMB) | payer OTHER, SELFPAY ==
[2023-06-08 13:34] VITALS: BP 128/60; PULSE 79; O2SAT 99; BMI 51.6
--- NOTE | 2023-06-08 13:34 | MHC.OFFVIS ---
Intake Vital Signs 06/08/23 13:34 Height 5 ft 9 in Weight 349 lb 6.923 oz BMI 51.6 BP 128/60 Blood Pressure Location Lt brachial Position Sitting Pulse 79 Pulse Source Pulse Oximeter Pulse Oximetry (%) 99 Oxygen Delivery Method Room Air Intake Visit Reasons: RLD Intake Note: pt is here for follow up and states she is feeling good, no issues pulmonary to talk about, working on loosing weight. Electroencephalographic Technician Required: No Allergies No Known Allergies Allergy (Unknown, Verified 06/08/23 14:03) Medication List - Last Reconciled 06/08/23 by Kyler Tovar MD aspirin 81 mg PO DAILY atorvastatin 40 mg PO BEDTIME blood sugar diagnostic (FreeStyle Lite Strips) As directed testing 4x daily. blood-glucose transmitter ([employer] G6 Transmitter device) As directed one every 3 months bupropion HCl 300 mg PO QAM cholecalciferol (vitamin D3) 2,000 units PO DAILY escitalopram oxalate 10 mg PO DAILY gabapentin 300 mg PO BID insulin aspart U-100 (Novolog FlexPen U-100 Insulin aspart) 12 - 26 units subcut TID insulin glargine U-300 conc (Toujeo SoloStar U-300 Insulin) 36 units subcut BEDTIME lisinopril 10 mg PO DAILY nitroglycerin 0.4 mg sublingual Q5M PRN omeprazole 20 mg PO DAILY oxcarbazepine 300 mg PO BID Do you need a note to return to daycare/school/sports/work: No HPI RLD HPI Details THIS 53 YEARS OLD FEMALE IS MORBIDLY OBESE. SHE IS HERE FOR FOLLOW-UP, SHE WAS SUPPOSED TO HAVE A CHEST X-RAY AND PULMONARY FUNCTION TEST WHICH SHE HAS NOT HAD, BECAUSE OF MISUNDERSTANDING HOWEVER SHE DENIES ANY RESPIRATORY ISSUES AT THIS TIME. SHE DENIES ANY. COUGH WHEEZING OR EXPECTORATION SHE CAN WALK AROUND WITHOUT MUCH SHORTNESS OF BREATH. SHE SLEEPS OKAY AND DENIES HAVING ANY RESPIRATORY PAUSES. SHE HAS HAD HOME-BASED SLEEP STUDY WHICH WAS NEGATIVE FOR SLEEP APNEA. [facility] Medical History Toe ulcer due to DM Arm swelling Restrictive lung disease Dyspnea on exertion Morbid obesity Gallstones Obesity due to excess calories Chronic kidney disease, stage 3 Charcot foot due to diabetes mellitus Depression Vitamin D deficiency Hyperlipidemia LDL goal <100 Hypertension Diabetic polyneuropathy Type 2 diabetes mellitus with chronic kidney disease Surgical History Hx of colonoscopy History of partial ray amputation of third toe of right foot Hx of wisdom tooth extraction History of partial amputation of toe (2018) History of total hysterectomy with bilateral salpingo-oophorectomy (BSO) Family History Father Type 2 diabetes mellitus Mother Type 2 diabetes mellitus Diverticulitis Hypertension Social History Household Members: Family Household Members Other:: , mother Housing: Apartment Are you a primary career development specialist to a significant other at home: No Do you presently have visiting nurse or other home services: Yes (SWAGE TOOLSETTER) Alcohol intake: never Patient Tobacco Use Status: Never used Tobacco service: No Review of Systems Const All systems reviewed & are unremarkable except as noted in HPI and below Eyes Reports no additional complaints ENT Reports nasal congestion (ONLY MILD OFF AND ON) Card Denies chest pain, Denies irregular heart rhythm, Denies leg edema and Reports dyspnea on exertion (MILD) Resp Denies cough, Reports dyspnea on exertion (MILD) and Denies wheezing GI Reports heartburn (GERD SYMPTOMS, AND ON) Reports no additional complaints Musc Reports no additional complaints Skin/Breast Reports system reviewed and no additional complaints, except as documented Neuro Reports no additional complaints Psych Reports anxiety and Reports depression Endo Reports other (BEING TREATED FOR DIABETES MELLITUS AND PERIPHERAL NEUROPATHY) Aller/Immun Denies wheezing Physical Exam Vital Signs: Last Vital Signs Pulse 79 06/08/23 13:34 BP 128/60 06/08/23 13:34 Pulse Ox 99 06/08/23 13:34 Oxygen Delivery Method Room Air 06/08/23 13:34 BMI result Body Mass Index 51.6 MORBIDLY OBESE Const General: comfortable, no acute distress, alert and awake Orientation/consciousness: patient oriented x3 HEENT Head: Yes normal to inspection General nose exam: No nasal polyps present and No nasal discharge present Face and sinus: Yes sinuses nontender Mouth: oropharynx normal (OROPHARYNX NOT EXCESSIVELY NARROW, MALLAMPATI CLASS 2) Throat: Yes posterior oropharynx normal Eyes General: appearance normal, both eyes and all related structures Neck Other: NECK SIZE IS 16 IN Neck: Yes normal visual inspection, Yes no lymphadenopathy, Yes trachea midline and Yes no JVD Thyroid: Thyroid normal Chest Chest palpation & inspection: normal inspection of the chest, normal palpation of entire chest wall and no tenderness Resp Other: PERCUSSION NOTE NOT PERCEPTIBLE BECAUSE OF THE OBESE CHEST WALL. BREATH SOUNDS ARE DECREASED OVER THE BASILAR AREAS. NO CREPITATIONS OR WHEEZES ARE HEARD. Cardio Palpation: normal PMI Rate: regular rate Rhythm: regular rhythm Heart sounds: no gallops and no murmurs GI Palpation (GI): Soft to palpation, nontender, No hepatosplenomegaly present, no masses and Other GI palpation findings present (ABDOMEN IS QUITE OBESE AND PROTUBERANT) Auscultation: normal bowel sounds Back/Spine/Pelvis Thoracic/Lumbar Spine: thoracic and lumbar spine normal to inspection Skin General skin exam: no rashes or lesions noted Neuro General: patient oriented x3 and no focal motor deficits Cranial nerves: Yes CN's II-XII intact bilaterally Extrem General: Yes normal to inspection, Yes no clubbing, cyanosis or edema and Yes no calf tenderness Psych Appearance: grossly normal Speech and movement: Normal speech and movement present Assessment & Plan Assessment & Plan (1) Morbid obesity: Comment: BMI 51.6 HISTORY OF MORBID OBESITY FOR MANY YEARS, SHE IS TRYING TO LOSE WEIGHT ON HER OWN AND ALSO, TRYING TO GET IN TO WEIGHT MANAGEMENT PROGRAM. Code(s): E66.01 - Morbid (severe) obesity due to excess calories Plan: AGAIN TALKED TO HER AND ADVISED THAT SHE SHOULD JOIN A WEIGHT MANAGEMENT PROGRAM AND TRY TO LOSE SOME WEIGHT. I UNDERSTAND IT IS DIFFICULT FOR HER TO JOIN THE WEIGHT MANAGEMENT PROGRAM DUE TO INSURANCE ISSUES. (2) Dyspnea on exertion: Comment: DYSPNEA ON EXERTION IS DESCRIBED MILD. PULMONARY FUNCTION TEST SHOWS A MILD TO MODERATE RESTRICTIVE PULMONARY DISORDER. THIS IS MAINLY DUE TO HER MORBID OBESITY. Code(s): R06.09 - Other forms of dyspnea Plan: I EXPLAINED TO THE PATIENT AND HER DAUGHTER, ABOUT THE MECHANISM OF RESTRICTIVE LUNG DISORDER AND REASON FOR SHORTNESS OF BREATH. I HAVE GIVEN HER INCENTIVE SPIROMETRY DEVICE FROM THE OFFICE, AND EDUCATED HER ABOUT DOING DEEP BREATHING EXERCISES EVERY 1 HOUR WHILE AWAKE. (3) Restrictive lung disease: Comment: MILD TO MODERATE DEGREE OF RESTRICTIVE PULMONARY DISORDER IS SECONDARY TO MORBID OBESITY, RECOMMENDED THAT SHE SHOULD LOSE WEIGHT AND ALSO DO DEEP BREATHING EXERCISES. THERE IS NO NEED OF ANY BRONCHODILATOR INHALERS. Code(s): J98.4 - Other disorders of lung Plan: SHOULD TRY TO LOSE WEIGHT AND ALSO ADVISED TO DO DEEP BREATHING EXERCISES Coding Level of Care Code Est Pt Level 3 (32748) Diagnoses Morbid obesity E66.01 Dyspnea on exertion R06.09 Restrictive lung disease J98.4
== END 2023-06-08 13:58 | disposition home or self-care (01) ==
PROVIDERS: PCP Internal Medicine; Visit Provider Internal Medicine
DX: E66.01 Morbid (severe) obesity due to excess calories (principal); R06.09 Other forms of dyspnea; J98.4 Other disorders of lung
CPT/HCPCS: 99213

== ENCOUNTER → 2023-06-08 13:24 | Outpatient (BNVA) | payer OTHER, SELFPAY | PROVIDERS: PCP Internal Medicine; Visit Provider Internal Medicine | DX: R06.09 Other forms of dyspnea (principal); J98.4 Other disorders of lung; E66.01 Morbid (severe) obesity due to excess calories; Z68.43 Body mass index [BMI] 50.0-59.9, adult | CPT/HCPCS: 99212 ==

== ENCOUNTER 2023-06-29 10:42 | Outpatient (AMB) | payer OTHER, SELFPAY ==
--- NOTE | 2023-06-29 10:43 | A.OFFVIS_ITS ---
Intake Vital Signs 06/29/23 10:44 Height 5 ft 9 in Weight 343 lb BMI 50.6 BP 148/63 H Blood Pressure Location Rt brachial Position Sitting Respiration 69 H Intake Visit Reasons: 4th toe on the right, ulcer healed Intake Note: This patient presents for a wound check assessment for 4th toe on the right foot, ulcer healed. Patient c/o; reports ulcer closed completely, denies draining or redness. Vamp Maker Required: No Accompanied by: Daughter Allergies No Known Allergies Allergy (Unknown, Verified 06/29/23 10:55) Medication List - Last Reconciled 06/29/23 by Dylan Lim MD aspirin 81 mg PO DAILY atorvastatin 40 mg PO BEDTIME blood sugar diagnostic (FreeStyle Lite Strips) As directed testing 4x daily. blood-glucose transmitter ([employer] G6 Transmitter device) As directed one every 3 months bupropion HCl 300 mg PO QAM cholecalciferol (vitamin D3) 2,000 units PO DAILY escitalopram oxalate 10 mg PO DAILY gabapentin 300 mg PO BID insulin aspart U-100 (Novolog FlexPen U-100 Insulin aspart) 12 - 26 units subcut TID insulin glargine U-300 conc (Toujeo SoloStar U-300 Insulin) 36 units subcut BEDTIME lisinopril 10 mg PO DAILY nitroglycerin 0.4 mg sublingual Q5M PRN omeprazole 20 mg PO DAILY oxcarbazepine 300 mg PO BID HPI 4th toe on the right, ulcer healed HPI Details I had been following her in the office for a nonhealing ulcer on the 4th toe on the right foot. I would want this amputated and she was scheduled to have this done last month. However, she had canceled the procedure then. She says that the ulcer appeared to started to heal last month. Her daughter says that there has not been any drainage. She feels that the ulcer has closed up already. Her blood sugar seemed to be better controlled as well. [facility] Medical History Toe ulcer due to DM Arm swelling Restrictive lung disease Dyspnea on exertion Morbid obesity Gallstones Obesity due to excess calories Chronic kidney disease, stage 3 Charcot foot due to diabetes mellitus Depression Vitamin D deficiency Hyperlipidemia LDL goal <100 Hypertension Diabetic polyneuropathy Type 2 diabetes mellitus with chronic kidney disease Surgical History Hx of colonoscopy History of partial ray amputation of third toe of right foot Hx of wisdom tooth extraction History of partial amputation of toe (2018) History of total hysterectomy with bilateral salpingo-oophorectomy (BSO) Family History Father Type 2 diabetes mellitus Mother Type 2 diabetes mellitus Diverticulitis Hypertension Social History Household Members: Family Household Members Other:: , mother Housing: Apartment Are you a primary career center director to a significant other at home: No Do you presently have visiting nurse or other home services: Yes (CONCESSION MANAGER) Alcohol intake: never Patient Tobacco Use Status: Never used Tobacco service: No Review of Systems Const Denies chills and Denies fever(s) Card Denies chest pain, Denies dyspnea and Denies dyspnea on exertion Resp Denies cough, Denies dyspnea and Denies dyspnea on exertion GI Denies hematochezia and Denies change in bowel habits Denies hematuria Musc Denies back pain and Denies limited range of motion Neuro Denies focal weakness and Denies convulsions Psych Denies depression and Denies mood swings Physical Exam Vital Signs: Last Vital Signs Resp 69 H 06/29/23 10:44 BP 148/63 H 06/29/23 10:44 BMI result Body Mass Index 50.6 Const Other: Morbidly obese General: comfortable and no acute distress Resp Effort & Inspection: normal respiratory effort Cardio Rate: regular rate GI Palpation (GI): Soft to palpation Extrem Other: Ulcer on 4th toe site has healed completely, no drainage, no open wound, no redness; no tenderness; old amputation site on the 3rd toe seen, well healed Assessment & Plan Assessment & Plan (1) Toe ulcer due to DM: Code(s): E11.621 - Type 2 diabetes mellitus with foot ulcer; L97.509 - Non-pressure chronic ulcer of other part of unspecified foot with unspecified severity Plan: She had previously wanted to have the toe amputated. However, this appeared to have healed completely. She has not noticed any significant drainage for the past several weeks now. Furthermore, the ulcer itself seems to have closed up completely We are going to hold off on toe amputation. I explained to her the importance of good foot care including checking every day at night. Her blood sugars need to be well controlled She can follow up on a p.r.n. basis Coding Level of Care Code Est Pt Level 2 (70830) Diagnoses Toe ulcer due to DM E11.621; L97.509
[2023-06-29 10:44] VITALS: BP 148/63; RESP 69; BMI 50.6
== END 2023-06-29 10:56 | disposition home or self-care (01) ==
PROVIDERS: PCP Internal Medicine; Visit Provider Surgery
DX: E11.621 Type 2 diabetes mellitus with foot ulcer (principal); L97.509 Non-pressure chronic ulcer of other part of unspecified foot with unspecified severity
CPT/HCPCS: 99212

== ENCOUNTER → 2023-06-29 10:42 | Outpatient (BNVA) | payer OTHER, SELFPAY | PROVIDERS: PCP Internal Medicine; Visit Provider Surgery | DX: E11.621 Type 2 diabetes mellitus with foot ulcer (principal); L97.509 Non-pressure chronic ulcer of other part of unspecified foot with unspecified severity | CPT/HCPCS: 99212 ==

== ENCOUNTER 2023-09-04 11:07 | Outpatient (REF) | payer OTHER, SELFPAY | END 2023-09-04 11:08 | disposition home or self-care (01) | LOC: HO.MAMMO 11:07 | PROVIDERS: PCP Internal Medicine; Visit Provider Internal Medicine | DX: Z12.31 Encounter for screening mammogram for malignant neoplasm of breast (principal) | CPT/HCPCS: 77063; 77067 ==

== ENCOUNTER → 2023-09-04 11:15 | Outpatient (BNV) | payer OTHER, SELFPAY | PROVIDERS: PCP Internal Medicine; Visit Provider Radiology Diagnostic Radiology | DX: Z12.31 Encounter for screening mammogram for malignant neoplasm of breast (principal) | CPT/HCPCS: 77063; 77067 ==

== ENCOUNTER 2023-09-28 10:53 | Outpatient (AMB) | payer OTHER, SELFPAY ==
[2023-09-28 11:14] VITALS: BP 130/70; PULSE 87; O2SAT 97; BMI 50.8
--- NOTE | 2023-09-28 11:14 | MHC.OFFVIS ---
Intake Vital Signs 09/28/23 11:14 Height 5 ft 9 in Weight 343 lb 14.738 oz BMI 50.8 BP 130/70 Blood Pressure Location Lt brachial Position Sitting Pulse 87 Pulse Source Pulse Oximeter Pulse Oximetry (%) 97 Oxygen Delivery Method Room Air Intake Visit Reasons: RDL Intake Note: pt is here for follow up and state she is feeling good Engineer Remote Control Diesel Required: No Allergies No Known Allergies Allergy (Unknown, Verified 09/28/23 11:26) Medication List - Last Reconciled 09/28/23 by Kyler Tovar MD aspirin 81 mg PO DAILY atorvastatin 40 mg PO BEDTIME blood sugar diagnostic (FreeStyle Lite Strips) As directed testing 4x daily. blood-glucose transmitter (Linguastat G6 Transmitter device) As directed one every 3 months bupropion HCl XL 300 mg PO QAM cholecalciferol (vitamin D3) 2,000 units PO DAILY escitalopram oxalate 10 mg PO DAILY gabapentin 300 mg PO BID insulin aspart U-100 (Novolog FlexPen U-100 Insulin aspart) 12 - 26 units subcut TID insulin glargine U-300 conc (Toujeo SoloStar U-300 Insulin) 36 units subcut BEDTIME lisinopril 10 mg PO DAILY nitroglycerin 0.4 mg sublingual Q5M PRN omeprazole 20 mg PO DAILY oxcarbazepine 300 mg PO BID Do you need a note to return to daycare/school/sports/work: No HPI RDL HPI Details Dora is 53 years old female with morbid obesity. She is Citizen Of [place] speaking and comes with her daughter who was the orthotics prosthetics technician. Denies any problem with sleep. Denies cough or shortness of breath or wheezing. She is nonsmoker. Remains grossly obese, and has not been able to lose weight, because she does not walk much. [facility] Medical History Toe ulcer due to DM Arm swelling Restrictive lung disease Dyspnea on exertion Morbid obesity Gallstones Obesity due to excess calories Chronic kidney disease, stage 3 Charcot foot due to diabetes mellitus Depression Vitamin D deficiency Hyperlipidemia LDL goal <100 Hypertension Diabetic polyneuropathy Type 2 diabetes mellitus with chronic kidney disease Surgical History Hx of colonoscopy History of partial ray amputation of third toe of right foot Hx of wisdom tooth extraction History of partial amputation of toe (2018) History of total hysterectomy with bilateral salpingo-oophorectomy (BSO) Family History Father Type 2 diabetes mellitus Mother Type 2 diabetes mellitus Diverticulitis Hypertension Social History Household Members: Family Household Members Other:: , mother Housing: Apartment Are you a primary gericare aide to a significant other at home: No Do you presently have visiting nurse or other home services: Yes (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) Alcohol intake: never Patient Tobacco Use Status: Never used Tobacco service: No Review of Systems Const All systems reviewed & are unremarkable except as noted in HPI and below Eyes Reports no additional complaints ENT Reports nasal congestion (ONLY MILD OFF AND ON) Card Denies chest pain, Denies irregular heart rhythm, Denies leg edema and Reports dyspnea on exertion (MILD) Resp Denies cough, Reports dyspnea on exertion (MILD) and Denies wheezing GI Reports heartburn (GERD SYMPTOMS, AND ON) Reports no additional complaints Musc Reports no additional complaints Skin/Breast Reports system reviewed and no additional complaints, except as documented Neuro Reports no additional complaints Psych Reports anxiety and Reports depression Endo Reports other (BEING TREATED FOR DIABETES MELLITUS AND PERIPHERAL NEUROPATHY) Aller/Immun Denies wheezing Physical Exam Vital Signs: Last Vital Signs Pulse 87 09/28/23 11:14 BP 130/70 09/28/23 11:14 Pulse Ox 97 09/28/23 11:14 Oxygen Delivery Method Room Air 09/28/23 11:14 BMI result Body Mass Index 50.8 MORBIDLY OBESE Const General: comfortable, no acute distress, alert and awake Orientation/consciousness: patient oriented x3 HEENT Head: Yes normal to inspection General nose exam: No nasal polyps present and No nasal discharge present Face and sinus: Yes sinuses nontender Mouth: oropharynx normal (OROPHARYNX NOT EXCESSIVELY NARROW, MALLAMPATI CLASS 2) Throat: Yes posterior oropharynx normal Eyes General: appearance normal, both eyes and all related structures Neck Other: NECK SIZE IS 16 IN Neck: Yes normal visual inspection, Yes no lymphadenopathy, Yes trachea midline and Yes no JVD Thyroid: Thyroid normal Chest Chest palpation & inspection: normal inspection of the chest, normal palpation of entire chest wall and no tenderness Resp Other: PERCUSSION NOTE NOT PERCEPTIBLE BECAUSE OF THE OBESE CHEST WALL. BREATH SOUNDS ARE DECREASED OVER THE BASILAR AREAS. NO CREPITATIONS OR WHEEZES ARE HEARD. Cardio Palpation: normal PMI Rate: regular rate Rhythm: regular rhythm Heart sounds: no gallops and no murmurs GI Palpation (GI): Soft to palpation, nontender, No hepatosplenomegaly present, no masses and Other GI palpation findings present (ABDOMEN IS QUITE OBESE AND PROTUBERANT) Auscultation: normal bowel sounds Back/Spine/Pelvis Thoracic/Lumbar Spine: thoracic and lumbar spine normal to inspection Skin General skin exam: no rashes or lesions noted Neuro General: patient oriented x3 and no focal motor deficits Cranial nerves: Yes CN's II-XII intact bilaterally Extrem General: Yes normal to inspection, Yes no clubbing, cyanosis or edema and Yes no calf tenderness Psych Appearance: grossly normal Speech and movement: Normal speech and movement present Assessment & Plan Assessment & Plan (1) Morbid obesity: Comment: BMI 50.8 HISTORY OF MORBID OBESITY FOR MANY YEARS, SHE IS TRYING TO LOSE WEIGHT ON HER OWN . Has lost a few lb since last visit. Home-based sleep study did not show any significant degree of sleep apnea. Code(s): E66.01 - Morbid (severe) obesity due to excess calories Plan: Again discussed about diet and need to walk daily, she will keep on trying. (2) Restrictive lung disease: Comment: MILD TO MODERATE DEGREE OF RESTRICTIVE PULMONARY DISORDER IS SECONDARY TO MORBID OBESITY, Code(s): J98.4 - Other disorders of lung Plan: Again instructed about doing deep breathing exercises 2 or 3 times a day. And explained that her mild shortness of breath on exertion is due to morbid obesity and restrictive disorder. (3) Dyspnea on exertion: Comment: DYSPNEA ON EXERTION IS DESCRIBED MILD. PULMONARY FUNCTION TEST SHOWED A MILD TO MODERATE RESTRICTIVE PULMONARY DISORDER. THIS IS MAINLY DUE TO HER MORBID OBESITY. Code(s): R06.09 - Other forms of dyspnea Plan: CONTINUE DOING DEEP BREATHING EXERCISES. AND CONTINUE TO TRY LOSING SOME WEIGHT. Plan PULMONARY FREEMAN SHE DOES NOT HAVE ANY SIGNIFICANT OR ACTIVE RESPIRATORY PROBLEM AT THIS TIME. I ADVISED THAT SHE CAN COME AND SEE ME ONLY NEEDED. IN THE MEANTIME SHE SHOULD CONTINUE REGULAR FOLLOW-UPS WITH PRIMARY CARE PHYSICIAN. Coding Level of Care Code Est Pt Level 3 (23023) Diagnoses Morbid obesity E66.01 Restrictive lung disease J98.4 Dyspnea on exertion R06.09
== END 2023-09-28 12:00 | disposition home or self-care (01) ==
PROVIDERS: PCP Internal Medicine; Visit Provider Internal Medicine
DX: E66.01 Morbid (severe) obesity due to excess calories (principal); J98.4 Other disorders of lung; R06.09 Other forms of dyspnea
CPT/HCPCS: 99213

== ENCOUNTER → 2023-09-28 10:53 | Outpatient (BNVA) | payer OTHER, SELFPAY | PROVIDERS: PCP Internal Medicine; Visit Provider Internal Medicine | DX: J98.4 Other disorders of lung (principal); R06.09 Other forms of dyspnea; E66.01 Morbid (severe) obesity due to excess calories; Z68.43 Body mass index [BMI] 50.0-59.9, adult | CPT/HCPCS: 99212 ==

== ENCOUNTER 2023-10-30 09:27 | Outpatient (REF) | payer OTHER, SELFPAY ==
--- NOTE | ~2023-10-30 | XR_ITS ---
EXAMINATION: XR KNEE, RIGHT CLINICAL INFORMATION: Injury, right knee pain, patient stated she felt about a year ago. COMPARISON: 10/06/2018. TECHNIQUE: Four views of the right knee. FINDINGS: The bones are diffusely demineralized. Mild narrowing of the medial and lateral compartment. Small tricompartmental osteophytes. XR/XR knee RT 4V IMPRESSION: Mild degenerative changes.
[2023-10-30 12:16] LABS: Alanine Aminotransferase 20 U/L (0-31); Albumin Level 4.2 g/dL (3.5-5.0); Alkaline Phosphatase 133 U/L (39-117); Anion Gap 14 (12-20); Aspartate Amino Transferase 21 U/L (5-31); Bilirubin Total 0.3 mg/dL (0.0-1.0); Blood Urea Nitrogen 19 mg/dL (9-16); Calcium 9.8 mg/dL (8.4-10.2); Carbon Dioxide 29 mmol/L (22-29); Chloride 102 mmol/L (96-108); Cholesterol 122 mg/dL (<200); Estimated Glomerular Filt Rate 38; Glucose Random 275 mg/dL (60-115); HDL Cholesterol 49 mg/dL (>40); LDL Cholesterol Calculated 59 mg/dL (<100); Sodium 141 mmol/L (135-145); Triglycerides 74 mg/dL (<150)
== END 2023-10-30 09:28 | disposition home or self-care (01) ==
LOC: HO.CHCLNP 09:27
PROVIDERS: Visit Provider Internal Medicine
DX: M25.561 Pain in right knee (principal); E11.610 Type 2 diabetes mellitus with diabetic neuropathic arthropathy; Z79.4 Long term (current) use of insulin; E66.2 Morbid (severe) obesity with alveolar hypoventilation
CPT/HCPCS: 36415; 73564; 80053; 80061

== ENCOUNTER 2024-01-09 12:41 | Outpatient (REF) | payer OTHER, SELFPAY ==
[2024-01-09 16:44] LABS: Creatinine Urine 113.63 mg/dL; Microalbum/Creatinine Ratio Ur 15.8 ug/mg cr (<30)
== END 2024-01-09 12:42 | disposition home or self-care (01) ==
LOC: HO.HHCL 12:41
PROVIDERS: Visit Provider Internal Medicine
DX: E11.610 Type 2 diabetes mellitus with diabetic neuropathic arthropathy (principal); Z79.4 Long term (current) use of insulin
CPT/HCPCS: 82043; 82570

== ENCOUNTER 2024-01-31 08:09 | Outpatient (REF) | payer OTHER, SELFPAY ==
--- NOTE | ~2024-01-31 | XR_ITS ---
EXAMINATION: XR KNEE, BILATERAL CLINICAL INFORMATION: Knee pain. COMPARISON: 10/30/2023, 10/06/2018. TECHNIQUE: AP standing view of bilateral knees as well as sunrise views of the right knee. FINDINGS: The bones are diffusely demineralized. Right knee: Hvuz-eb-[id number] narrowing of the medial compartment. Small tricompartmental osteophytes. AP standing view of the left knee: Minimal narrowing of the medial compartment with tiny medial marginal osteophytes. XR/XR knee RT 2V IMPRESSION: Qphi-hk-wvflyzpt degenerative changes right knee. Electronically signed by: Carli Felix MD 02/27/2024 02:07 PM EDT
--- NOTE | ~2024-01-31 | XR_ITS ---
EXAMINATION: XR KNEE, BILATERAL CLINICAL INFORMATION: Knee pain. COMPARISON: 10/30/2023, 10/06/2018. TECHNIQUE: AP standing view of bilateral knees as well as sunrise views of the right knee. FINDINGS: The bones are diffusely demineralized. Right knee: Ymug-oh-avsoifvr narrowing of the medial compartment. Small tricompartmental osteophytes. AP standing view of the left knee: Minimal narrowing of the medial compartment with tiny medial marginal osteophytes. XR/XR knee LT 1V IMPRESSION: Uacq-sm-hgmzench degenerative changes right knee. Electronically signed by: Carli Felix MD 02/27/2024 02:07 PM EDT
== END 2024-01-31 08:10 | disposition home or self-care (01) ==
LOC: HO.HOSX 08:09
PROVIDERS: PCP Internal Medicine; Visit Provider Physician Assistant
DX: M25.562 Pain in left knee (principal); M17.11 Unilateral primary osteoarthritis, right knee
CPT/HCPCS: 73560; 99202

== ENCOUNTER 2024-01-31 08:29 | Outpatient (AMB) | payer OTHER, SELFPAY ==
--- NOTE | 2024-01-31 09:14 | A.OFFVIS_ITS ---
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 Patient reports her pain and discomfort has been present for a few months that has been getting worse. She was seen by her PCP who ordered xrays and was referred to orthopedics. No other tx. Her pain is located at the anterior aspect of knee and has clicking. She has an increase of pain with stair use and prolong walking. Patient uses a cane and walker for ambulation. No previous tx. No relief with Tylenol. General Education Professor Required: Yes General Education Professor Services: General Education Professor Offered & Declined Accompanied by: Child Allergies No Known Allergies Allergy (Unknown, Verified 01/31/24 09:18) Medication List - Last Reconciled 01/31/24 by Daryl Ramesh PA-C aspirin 81 mg PO DAILY atorvastatin 40 mg PO BEDTIME blood sugar diagnostic (FreeStyle Lite Strips) As directed testing 4x daily. 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 She reports she sustained a fall last year landing on her knees and hand while going down the basement. She was seen by her PCP for worsening pain and discomfort who ordered x-rays and referred her to our office. She states she has pain and discomfort at the anterior aspect of her knee that is aggravated with stair use and prolonged walking. She also has clicking sensation with leg extension and going upstairs. She ambulates with a cane at baseline and crutches. She has not had any treatment in the past. She finds no relief with Tylenol. She has a history of diabetes. Her sugar levels are not well controlled. [facility] Medical History Toe ulcer due to DM Arm swelling Restrictive lung disease Dyspnea on exertion Morbid obesity Gallstones Obesity due to excess calories Chronic kidney disease, stage 3 Charcot foot due to diabetes mellitus Depression Vitamin D deficiency Hyperlipidemia LDL goal <100 Hypertension Diabetic polyneuropathy Type 2 diabetes mellitus with chronic kidney disease Surgical History Hx of colonoscopy History of partial ray amputation of third toe of right foot Hx of wisdom tooth extraction History of partial amputation of toe (2018) History of total hysterectomy with bilateral salpingo-oophorectomy (BSO) Family History Father Type 2 diabetes mellitus Mother Type 2 diabetes mellitus Diverticulitis Hypertension Social History Household Members: Family Household Members Other:: , mother Housing: Apartment Are you a primary laboratory animal care veterinarian to a significant other at home: No Do you presently have visiting nurse or other home services: Yes (FORGING PRESS SETTER UP) Alcohol intake: never Patient Tobacco Use Status: Never used Tobacco service: No Review of Systems Const All systems reviewed & are unremarkable except as noted in HPI and below Physical Exam Vital Signs: BMI result Body Mass Index 50.6 Const General: cooperative, healthy appearing, comfortable, no acute distress, well developed and alert Orientation/consciousness: patient oriented x3 HEENT Head: Yes normal to inspection, Yes normocephalic and Yes atraumatic Eyes General: appearance normal, both eyes and all related structures Resp Effort & Inspection: normal respiratory effort and able to speak in complete sentences Cardio Rate: regular rate Peripheral pulses: Peripheral pulses 2+ throughout GI Palpation (GI): Soft to palpation Skin Lesions: no lesions Rashes: no rashes Neuro General: patient oriented x3 Extrem Other: Right knee: Skin intact, no erythema or joint effusion. Retropatellar tenderness present. Full ROM with crepitus. Negative Sharad?s. No ligamentous laxity. NVI. Results Reviewed Results Reviewed: 2Xrays were obtained in the office today and personally reviewed by me of the right knee show pf oa Assessment & Plan Assessment & Plan (1) Patellofemoral arthritis of right knee: Code(s): M17.11 - Unilateral primary osteoarthritis, right knee Category: Medical Plan We discussed options which include PT, NSAIDs and injections. The patient will defer on the injection today as her sugars are not well controlled and proceed with PT and NSAIDs. If symptoms persist, she will contact me for an injection, otherwise, PRN. Orders: Orders XR knee LT 1V Today M25.562 - Pain in left knee PT Evaluation and Treatment Today M17.11 - Unilateral primary osteoarthritis, right knee XR knee RT 2V Today M25.569 - Pain in unspecified knee Medications: New celecoxib (Celebrex) 200 mg PO BID 60 caps 3RF 30 days Patient Instructions: Scribed for Daryl Ramesh PA-C, by Steve Anderson anesthesiology medical doctor, on 01/31/2024 at 8:30 AM EST.? I, Daryl Ramesh PA-C, have personally reviewed and agree with the information entered by the scribe. Coding Level of Care Code New Pt Level 3 (17889) Diagnoses Patellofemoral arthritis of right knee M17.11
[2024-01-31 09:22] VITALS: BMI 50.6
== END 2024-01-31 10:00 | disposition home or self-care (01) ==
PROVIDERS: PCP Internal Medicine; Visit Provider Physician Assistant
DX: M17.11 Unilateral primary osteoarthritis, right knee (principal)
CPT/HCPCS: 99204

== ENCOUNTER 2024-06-14 08:50 | Outpatient (AMB) | payer OTHER, SELFPAY ==
[2024-06-14 08:51] VITALS: BP 114/52; PULSE 72; O2SAT 96; BMI 49.7
--- NOTE | 2024-06-14 08:51 | A.OFFVIS_ITS ---
Vital Signs 06/14/24 08:51 Height 5 ft 9 in Weight 336 lb 6.806 oz BMI 49.7 BP 114/52 L Blood Pressure Location Rt brachial Position Sitting Pulse 72 Pulse Source Pulse Oximeter Pulse Oximetry (%) 96 Oxygen Delivery Method Room Air Intake Visit Reasons: [place] Screening Intake Note: NEW PATIENT Reason; scheduled in office colo consult. Prior hx of colo/egd? 2019/ Concerns/Questions? Intermittent epigastric pain, worse when bending over. PT does have hx of complications of acid reflux. Never diagnosed with GERD. Pharmacy verified? [facility] Pharmacy [facility] Required: Yes Allergies No Known Allergies Allergy (Unknown, Verified 06/14/24 08:53) HPI HPI [place] Screening: Details: 54 year old? female with past medical history of arthritis, diabetes, history of osteomyelitis, restrictive lung disease, chronic kidney disease, diabetic polyneuropathy, hyperlipidemia, obesity is here today for pre colonoscopy screen ing.? Patient was sent to us by her PCP.? Last colonoscopy in December of 2018, suboptimal prep then.? Patient denies any gastrointestinal symptoms in the past or at present.? Patient reports epigastric pain only when bending, not related to meals. Denies any personal or family history of gastrointestinal disease, colon polyps, or CRC.? Denies history of difficulty with sedation or anesthesia in the past.? Negative for history of sleep apnea.? Denies any history of cardiac, renal, pulmonary, or hepatic disease.?? No history of infectious? diseases like hepatitis A, B, C, HIV or tuberculosis.? Patient is on low-dose aspirin [facility] Medical History Toe ulcer due to DM Arm swelling Restrictive lung disease Dyspnea on exertion Morbid obesity Gallstones Obesity due to excess calories Chronic kidney disease, stage 3 Charcot foot due to diabetes mellitus Depression Vitamin D deficiency Hyperlipidemia LDL goal <100 Hypertension Diabetic polyneuropathy Type 2 diabetes mellitus with chronic kidney disease Surgical History Hx of colonoscopy History of partial ray amputation of third toe of right foot Hx of wisdom tooth extraction History of partial amputation of toe (2018) History of total hysterectomy with bilateral salpingo-oophorectomy (BSO) Family History Father Type 2 diabetes mellitus Mother Type 2 diabetes mellitus Diverticulitis Hypertension Social History Household Members: Family Household Members Other:: , mother Housing: Apartment Are you a primary child care leader to a significant other at home: No Do you presently have visiting nurse or other home services: Yes (IMPLEMENTATION DIRECTOR) Alcohol intake: never Patient Tobacco Use Status: Never used Tobacco service: No Review of Systems Const Denies weight gain and Denies weight loss ENT Reports no additional complaints, Denies dysphagia and Denies odynophagia Card Reports no additional complaints Resp Reports no additional complaints GI Denies abdominal pain, Denies belching, Denies melena, Denies bloating, Denies change in bowel habits, Denies dysphagia, Denies excessive flatus, Denies dyspepsia, Denies heartburn, Denies diarrhea, Denies loose stools, Denies nausea, Denies odynophagia and Denies vomiting Musc Reports no additional complaints Neuro Reports no additional complaints Psych Reports no additional complaints Endo Reports no additional complaints Physical Exam Vital Signs: BMI result Body Mass Index 49.7 Const General: healthy appearing and no acute distress Nutritional Appearance: obese Orientation/consciousness: patient oriented x3 Resp Effort & Inspection: normal respiratory effort, able to speak in complete sentences, no tracheal deviation and symmetric chest movement Auscultation: clear to auscultation bilaterally Cardio Rate: regular rate GI Inspection: Yes normal to inspection, No distended and Yes obesity Palpation (GI): Soft to palpation, not firm, nontender and No hepatosplenomegaly present Auscultation: normal bowel sounds General: Yes no CVA tenderness Back/Spine/Pelvis Back: no CVA tenderness Skin General skin exam: elasticity normal, turgor normal and dry skin Neuro General: patient oriented x3 Psych Appearance: grossly normal Mental Status: mental status grossly normal Assessment & Plan Assessment & Plan (1) Screen for colon cancer: Code(s): Z12.11 - Encounter for screening for malignant neoplasm of colon Plan Patient denies any GI, cardiac or respiratory symptoms.? Denies any issues with anesthesia in the past.? Denies any history of sleep apnea.? No history infectious diseases in the past or present.? Patient is on low-dose aspirin? No family or personal history of colon cancer or polyps.? Patient denies melena, hematochezia, unintentional weight loss or ribbon like stools.? Discussed at length the pre-procedure,? prep, diet & medications as well as what to expect prior, during and after the procedure.??Patient is on short-acting insulin she will hold that day before procedure. Patient is also taking Toujeo at night time. She will take half of the dose 2 nights and 1 night before procedure. Ozempic holding for 1 week before procedure. Patient will also take Dulcolax starting 1 week before procedure every evening to help her move her bowels better. Patient had suboptimal prep last procedure. Stressed the importance of good bowel prep.? Recommended the use of Vaseline or Calmoseptine OTC & baby wipes with bowel movements to promote comfort.? ?Patient verbalizes understanding and agrees to plan of care.? She was given the opportunity to ask questions and all questions answered.? We will see her after the procedure.? Medications: New bisacodyl (Dulcolax (bisacodyl)) Start taking 2 tablet every night 7 days before the procedure and 1 day before procedure take 4 tablets at noon time followed by MiraLax prep 10 mg (2 x 5 mg) PO BEDTIME 16 tabs 0RF Z12.11 - Encounter for screening for malignant neoplasm of colon polyethylene glycol 3350 (Miralax) As directed by gastroenterology department at [facility] 238 grams PO ONCE 238 grams 0RF Z12.11 - Encounter for screening for malignant neoplasm of colon Coding Level of Care Code New Pt Level 3 (36438) Diagnoses Screen for colon cancer Z12.11 Time Spent (min) 40 Comment 30 minutes spent with patient and additional 10 minutes spent reviewing her records
--- OUTSIDE RECORDS SUMMARY | 2024-06-14 09:04 | XMS_ITS ---
Author Organization [facility] marie Ransom Address [address] [place] [address] Care Team Providers Care Drug Abuse Treatment Specialist Name Role Phone Garry Zuleta MD, [facility] Primary Care Provide r Unavailable Cristofer Hilario Unavailable [phone] Allergies No Known Allergies REASON FOR VISIT At Risk Footcare, Toe Irritation Medications Medication SIG (Take, Route, Frequency, Duration) Notes Start Date End Date Status traZODone HCl 50 MG 1 tablet at bedtime as needed Orally Once a day for 30 day(s) Not-Taking Gabapentin 300 MG TAKE 1 CAPSULE BY [facility] TWICE DAILY IN THE MORNING AND AT BEDTIME Oral for 30 Not-Taking Extra Depth Orthopedic Shoes (1 Pair) with Customized Heat Molded Multidensity Innersoles (3 Pair) as directed Dx: NIDDM/Polyneuropathy (E11.42), Hammertoe Foot Deformity (M20.41,M20.42), Preulcerative Skin Lesion(s) (L85.1 04/05/2024 Active NovoLOG 100 UNIT/ML as directed Subcutaneous Not-Taking Doxycycline Hyclate 100 MG 1 tablet Orally Once a day for 10 day(s) Not-Taking flonase 50 mcg/act A ctive Trulicity Active zzzCompression Stockings 20-30mm Hg . . . for . Active Augmentin 500-125 MG 1 tablet Orally sean ry 8 hrs for 7 day(s) Not-Taking Ammonium Lactate 12 % 1 application Externally Twice a day for 30 days Active traMADol HCl 50 MG 1 tablet as needed Orally Once a day Active Simvastatin 10 MG 1 tablet in the even ing Orally Once a day for 30 day(s) 08/12/2019 Active Vitamin D3 50 MCG (2000 UT) TAKE 1 CAPSULE BY MOUTH EVERY MORNING Oral for 30 Active Trulicity 0.75 MG/0.5ML as directed Subcutaneous Active OXcarbazepine 300 MG TAKE 1 TABLET BY [place] UT TWICE DAILY IN THE MORNING AND IN THE EVENING Oral for 30 Active Fluticasone Propionate 50 MCG/ACT 1 spray in each nostril Nasally Once a day for 30 day(s) Active Lexapro 10 MG 1 tablet Orally Once a day for 30 day(s) Active Neurontin 300 MG 1 capsule Orally Onc e a day for 30 day(s) Active Lisinopril 10 MG 1 tablet Orally Once a day for 30 day(s) 08/12/2019 Active Omeprazole 20 MG 1 capsule 30 minutes before morning meal Orally Once a day for 30 day(s) 08/12/2019 Active buPROPion HCl ER (XL) 300 MG TAKE 1 TABLET BY MOUTH EVERY MORNING Oral for 30 Active Aspirin EC 81 MG as directed Orally 08/12/2019 Active Glucose 4 GM as directed Orally Active Colace 100 MG 1 capsule as needed Orally Once a day for 30 day(s) Active Escitalopram Oxalate 10 MG TAKE 1 TABLET BY MOUTH AT BEDTIME Oral for 30 Active Artificial Tears 0.1-0.3 % as directed Ophthalmic Activ e Acarbose 50 MG as directed Orally Active Social History Tobacco Use: Social History Observation Description Date Details (start date - stop date) Never Smoker NA - NA Tobacco Use/Smoking Question Answer Notes Are you a: nonsmoker Additional Findings: Tobacco Non-User Current no n-smoker Tobacco use other than smoking: Question Answer Notes Are you an other tobacco user? No Vital Signs Height 5ft9.5in in 04/05/2024 Weight 351 lbs 04/05/2024 BMI 51.08 kg/m2 04/05/2024 Procedures Procedure Date Ordered Date Performed Result Body Sit e 11771-PPBHSSN NAIL, 6 OR MORE 04/05/2024 N/A 44320-JNSP SKIN LESIONS, OVER 4 04/05/2024 N/A Encounters Encounter Location Date Provider Diagnosis [facility] [place] [address] [place] [address] 04/05/2024 Cristofer Hilario Type 2 diabetes mellitus with diabetic polyneuropathy E11.42 ; Tinea unguium B35.1 ; Other hammer toe(s) (acquired), right foot M20.41 and Other hammer toe(s) (acquired), left foot M20.42 Assessments Encounter Date Diagnosis (ICD Code) Assessment Notes Treatment Notes Treatment Clinical Notes Section Notes 04/05/2024 Type 2 diabetes mellitus with diabetic polyneuropathy (ICD-10 - E11.42) 04/05/2024 Tinea unguium (ICD-10 - B35.1) 04/05/2024 Other hammer toe(s) (acquired), right foot (ICD-10 - M20.41) Patient Educated with: DIABETIC FOOT CARE INSTRUCTIONS. pdf (DIABETIC FOOT CARE INSTRUCTIONS. pdf) 04/05/2024 Other hammer toe(s) (acquired), left foot (ICD-10 - M20.42) Plan Of Treatment Medication Medication Name Sig Start Date Stop Date Notes Extra Depth Orthopedic Shoes (1 Pair) with Customized Heat Molded Multidensity Innersoles (3 Pair) as directed Dx: NIDDM/Polyneuropathy (E11.42), Hammertoe Foot Deformity (M20.41,M20.42), Preulcerative Skin Lesion(s) (L85.1 04/05/2024 Treatment Notes Assessment Notes Other hammer toe(s) (acquired), right fo ot Patient Educated with: DIABETIC FOOT CARE INSTRUCTIONS.pdf (DIABETIC FOOT CARE INSTRUCTIONS.pdf) Pending Test Test Name Order Date 48761-[id number] NAIL, 6 OR MORE 04/05/2024 59487-YCVK SKIN LESIONS, OVER 4 04/05/20 24 Next Appt Details Follow Up: prn, Reason: Provider Name:Cristofer Hilario , 07/12/2024 12:30:00 PM, [address] [place] [address], [phone], Procedure Notes * Category Sub-Category Detail Notes Debride Nail 6-10 Nail debridement Performance o f this nail treatment by a nonprofessional would put this patients foot and overall health at risk. Therefore, nail debridement was performed extensively to reduce/remove overall nail length, girth, thickness, subungual debris, and necrotic tissue, by manual and/or electrical means through the use of a nail nipper and/or dremel-type cutter grinder operator, to a more viable healthy nail plate or bed tissue 6-10. Silver nitrate used for any petechial bleeding as necessary. Definitive antifungal treatment options have been reviewed and discussed with the patient. The patient chooses, no pharmaceutical tx - 81302 Keratoma Treatment Parring or Cutting o f Benign Hyperkeratotic Lesion(s) (-57) More than 4 Lesions - The Benign hyperkeratotic lesions, as described above were pared, and/or cut utilizing a sterile 15 blade, tissue nippers, and/or dremel - 09823 Progress Notes * Dora FERNANDEZDOB:[birth year] (54 yo F)Acc No.[id number]:04/05/2024 Progress Note Patient:?Dora Fernandez Provider:?Cristofer Hilario DPM :1970???Age:54 Y???Sex:Female D ate:04/05/2024 Address:[address] [place], [place] [id number] Pcp:Edwin Zuleta MD Subjective: * Chief Complaints: * ???At Risk FootcareToe Irrit ation * HPI: ???At Risk footcare:?Pt States Last PCP Visit:?Date?01/09/2024 ???Toe pain:?Location:?B/L feet.?Duration:?several years.?Course:?worse.?Aggravated by:?shoes, any pressure.?Treatments:?change in shoes.? * ROS:?General/Constitutional:?Nausea?denies.?Vomiting?denies.?Hunger Thirst?denies.?Loss appetite?denies.?Chills?denies.?Fatigue?denies.?Fever?denies.?Night Sweats?denies.?Unexplained weight loss?denies.?Unexplained weight gain?denies.?HEENTM:?Dentures?denies.?Dizziness?denies.?Glasses/contacts?admits.?Retinopathy?de nies.?Blurred/double vision?denies.?TMJ?denies.?Discharge/drainage?denies.?Implants?denies.?Sore throat?denies.?Dental implants?denies.?Hard of hearing ?denies.?Difficulty chewing/swallowing/speaking?denies.?Nose bleeds?denies.?Sore mouth?denies.?Respiratory:?On Oxygen?denies.?Pneumonia/pleurisy?denies.?Bronchitis?denies.?Emphysema?denies.?C oughing?denies.?Cough blood?denies.?Shortness of breath?denies.?Wheezing?denies.?Cardiovascular:?Pacemaker?denies.?MVP?denies.?WPW?denies.?CHF?denies.?Heart attack?denies.?Septal defect?denies.?Rapid beat?denies.?Chest pain ?denies.?Atrial Fib.?denies.?Murmur/Palpitations?denies.?Gastrointestinal:?Hemorrhoids?denies.?Stomach/Abdominal pain?denies.?Dark blood stool?denies.?Irritable bowel ?denies.?Constipation?denies.?Diarrhea?denies.?Hematology:?Swelling?admits.?Clots?denies.?Varicose Veins?admits.?Bruising?denies.?Bleeding problem?denies.?Genitourinary:?Blood urine?denies.?Frequent/Painfu/urination/bladder control?denies.?Kidney stones?denies.?Infection (UTI)?denies.?Nephropathy?denies.?sex trans dis (STD)?denies.?Prostate?denies.?Musculoskeletal:?Hammertoes?admits.?Bunions?denies.?Back Pain?denies.?Muscle Cramps/ Resting?denies.?Muscle cramps / walking?denies.?Generalized aches and pains?denies.?Weakness?denies.?Integ.:?Mahan?denies.?Scars?denies.?Corns/calluses?admits.?Ingrown nails?admits.?Painful nails?denies.?Open Sores?denies.?Rashes?denies.?Neurologic:?Difficulty sleeping?denies.?Brain disorder?denies.?Numbness?admits.?Balance trouble?denies.?Confusion?denies.?Fainting/blackouts?denies.?Tingling?admits, bilateral lower extremities, that is moderate.?Tremors?denies.? * Medical History:? * Surgical History:?Denies Pas t Surgical History * Hospitalization/Major Diagno stic Procedure:?Denies Past Hospitalization * Family History:?Mother: drake brown, foot problems, diagnosed with Unspecified cerebral artery occlusion with cerebral infarction, Other malignant neoplasm of unspecified site, Family history of arthritis, Diabetic - NIDDM, Unspecified essential hypertension, Unspecified heart disease.?Father: , diagnosed with Diabetic - NIDDM, Unspecified essential hypertension.?Siblings: alive.?Spouse: alive.? * Social History:?Tobacco Use:?Tobacco Use/Smoking?Are you a:?nonsmoker ?Additional Findings: Tobacco Non-User?Current non-smoker ?Tobacco use other than smoking?Are you an other tobacco user??No ???Miscellaneous:?Caffeine: yes, frequency:, 2-3 cups per day. ?Children: yes, 1. ?Exercise: yes, walking, housework. ?Marital status: . ?Occupation: retired. * Medications:?TakingAcarbose 50 MG Tablet as directed Orally Artificial Tears 0.1-0.3 % Solution as directed Ophthalmic Aspirin EC 81 MG Tablet Delayed Release as directed Orally buPROPion HCl ER (XL) 300 MG Tablet Extended Release 24 Hour TAKE 1 TABLET BY MOUTH EVERY MORNING Oral Colace 100 MG Capsule 1 capsule as needed Orally Once a dayGlucose 4 GM Tablet Chewable as directed Orally Escitalopram Oxalate 10 MG Tablet TAKE 1 TABLET BY MOUTH AT BEDTIME Oral Fluticasone Propionate 50 MCG/ACT Suspension 1 spray in each nostril Nasally Once a dayLexapro 10 MG Tablet 1 tablet Orally Once a dayLisinopril 10 MG Tablet 1 tablet Orally Once a dayNeurontin 300 MG Capsule 1 capsule Orally Once a dayOmeprazole 20 MG Capsule Delayed Release 1 capsule 30 minutes before morning meal Orally Once a dayOXcarbazepine 300 MG Tablet TAKE 1 TABLET BY MOUTH TWICE DAILY IN THE MORNING AND IN THE EVENING Oral Simvastatin 10 MG Tablet 1 tablet in the evening Orally Once a daytraMADol HCl 50 MG Tablet 1 tablet as needed Orally Once a dayTrulicity 0.75 MG/0.5ML Solution Pen-injector as directed Subcutaneous Vitamin D3 50 MCG (2000 UT) Capsule TAKE 1 CAPSULE BY MOUTH EVERY MORNING Oral Trulicity flonase 50 mcg/act nasal spray zzzCompression Stockings 20-30mm Hg 1 pair closed toe- knee high . . .Ammonium Lactate 12 % Cream 1 application Externally Twice a dayTaking Acarbose 50 MG Tablet as directed Orally Taking Artificial Tears 0.1-0.3 % Solution as directed Ophthalmic Taking Aspirin EC 81 MG Tablet Delayed Release as directed Orally Taking buPROPion HCl ER (XL) 300 MG Tablet Extended Release 24 Hour TAKE 1 TABLET BY MOUTH EVERY MORNING Oral Taking Colace 100 MG Capsule 1 capsule as needed Orally Once a dayTaking Glucose 4 GM Tablet Chewable as directed Orally Taking Escitalopram Oxalate 10 MG Tablet TAKE 1 TABLET BY MOUTH AT BEDTIME Oral Taking Fluticasone Propionate 50 MCG/ACT Suspension 1 spray in each nostril Nasally Once a dayTaking Lexapro 10 MG Tablet 1 tablet Orally Once a dayTaking Lisinopril 10 MG Tablet 1 tablet Orally Once a dayTaking Neurontin 300 MG Capsule 1 capsule Orally Once a dayTaking Omeprazole 20 MG Capsule Delayed Release 1 capsule 30 minutes before morning meal Orally Once a dayTaking OXcarbazepine 300 MG Tablet TAKE 1 TABLET BY MOUTH TWICE DAILY IN THE MORNING AND IN THE EVENING Oral Taking Simvastatin 10 MG Tablet 1 tablet in the evening Orally Once a dayTaking traMADol HCl 50 MG Tablet 1 tablet as needed Orally Once a dayTaking Trulicity 0.75 MG/0.5ML Solution Pen-injector as directed Subcutaneous Taking Vitamin D3 50 MCG (2000 UT) Capsule TAKE 1 CAPSULE BY MOUTH EVERY MORNING Oral Taking Trulicity Taking flonase 50 mcg/act nasal spray Taking zzzCompression Stockings 20-30mm Hg 1 pair closed toe- knee high . . .Taking Ammonium Lactate 12 % Cream 1 application Externally Twice a dayNot-Taking/PRNAugmentin 500-125 MG Tablet 1 tablet Orally every 8 hrsDoxycycline Hyclate 100 MG Tablet 1 tablet Orally Once a dayNovoLOG 100 UNIT/ML Solution as directed Subcutaneous Gabapentin 300 MG Capsule TAKE 1 CAPSULE BY MOUTH TWICE DAILY IN THE MORNING AND AT BEDTIME Oral traZODone HCl 50 MG Tablet 1 tablet at bedtime as needed Orally Once a dayMedication List reviewed and reconciled with the patientNot-Taking/PRN Augmentin 500-125 MG Tablet 1 tablet Orally every 8 hrsNot-Taking/PRN Doxycycline Hyclate 100 MG Tablet 1 tablet Orally Once a dayNot-Taking/PRN NovoLOG 100 UNIT/ML Solution as directed Subcutaneous Not-Taking/PRN Gabapentin 300 MG Capsule TAKE 1 CAPSULE BY MOUTH TWICE DAILY IN THE MORNING AND AT BEDTIME Oral Not-Taking/PRN traZODone HCl 50 MG Tablet 1 tablet at bedtime as needed Orally Once a dayMedication List reviewed and reconciled with the patient * Allergies:?N.K.D.A.yes[Aller gies Verified] Objective: * Vitals:?Ht: 5ft9.5in, Wt:351 , BMI:51.08, Shoe size: 12.5, BS: 132, Ht-cm: 176.53 cm, Wt-k.21 kg. * ???Past Orders: ???Lab:HEMOGLOBIN A1C (GLYCO HEMOGLOBIN) (Order Date - 09/08/2023) (Collection Date - 09/08/2023) ? Value Reference Range ?HEMOGLOBIN A1C % (HH) 12.9 * Examination: ???Neurological: ?SENSORY:?Neurological exam demonstrates, reduced light touch sensation, reduced sharp/dull discrimination , reduced vibration sensation, in a stocking fashion, B/L, 5.07 monofilament test performed at plantar aspects of 5 varied sites per foot shows sensation, reduced, B/L.?Nails: ?NAILS are:?Elongated, overgrown, dystrophic, lytic, greater than 3mm thick, discolored and friable with crumbly malodorous subungual debris, 1-5 Left foot, T5, T6, T8, T9.?Dermatologic: ?SKIN FINDINGS:?Skin exam reveals Keratotic lesion(s) located at, Medial plantar, IPJ, TA, Medial plantar, IPJ, T5, SUB MTH (s), 1, B/L, SUB MTH (s), 5, B/L , SUB 5th MTBase, B/L , Heel(s), B/L.?Orthopedic: ?MUSCLE STRENGTH:?5/5 all groups in a symmetrical fashion , B/L.?FOOT MORPHOLOGY:?Pes Planus structure, No Charcot collapse/destruction noted at MTJ.?DIGITAL DEFORMITIES:?Amputation T7, Digital contracture, PIPJ, 2-5 B/L (Save T7), incompletely reducable with WB, or to push-up test, no over, nor underlapping,?with evidence of shoe producing skin irritation .?FOOTWEAR:?worn, OT were inspected and noted to be severely worn , in poor condition not giving proper support at the present time, shoegear properties exacerbate patient's foot/toe deformity .?Vascular: ?AMPUTATION, NON-TRAUMATIC(A):?T7.?DP PULSES(B):? 2/4, B/L.?PT PULSES(B):? 0/4, B/L.?CAPILLARY FILL TIME:? 3 secs. per digit, B/L.?TROPHIC CONDITION-TEXTURE/ELASTICITY/TURGOR/HAIR GROWTH(B):? decreased, with sparse to absent hair growth, B/L.?TEMPERTURE GRADIENT(C):? decreased, cool to cool, proximal to distal, B/L.?PIGMENTATION:? mottled, B/L.?EDEMA(C):? 2/4, non-pitting, without aching pain, B/L, Leg(s), Ankle(s).?Ophthalmology Referral: ?DIABETES EYE EXAM?General Examination: ?GENERAL APPEARANCE:?Reveals a pleasant, alert, well nourished, well- developed, well hydrated individual, who demonstrates proper attention to hygiene/body habitus, and is in no acute distress , Pt accompanied by , Daughter , who serves as , [employer] Paraprofessional/Signal Technician , additional Historian , and/who is physically present in exam room at time of visit.?ORIENTED:?person, place, and time.?FOOT EXAM:?Footwear Evaluation? Assessment: * Assessment: 1.?Type 2 diabetes mellitus with diabetic polyneuropathy - E11.42 (Primary)?2.?Tinea unguium - B35.1?3.?Other hammer toe(s) (acquired), right foot - M20.41, Chronic problem, Worse (4),Rx Management (4)?4.?Other hammer toe(s) (acquired), left foot - M20.42, Chronic problem, Worse (4),Rx Management (4)? Plan: * Treatment: 2.?Other hammer toe(s) (acqu ired), right foot? Start Extra Depth Orthopedic Shoes (1 Pair) with Customized Heat Molded Multidensity Innersoles (3 Pair), as directed, Dx: NIDDM/Polyneuropathy (E11.42), Hammertoe Foot Deformity (M20.41,M20.42), Preulcerative Skin Lesion(s) (L85.1, 1, Refills 0.?? Notes: Patient Educated with: DIABETIC FOOT CARE INSTRUCTIONS.pdf (DIABETIC FOOT CARE INSTRUCTIONS.pdf)?? * Procedures:?Debride Nail 6-10:?Nail debridement?Performance of this nail treatment by a nonprofessional would put this patients foot and overall health at risk. Therefore, nail debridement was performed extensively to reduce/remove overall nail length, girth, thickness, subungual debris, and necrotic tissue, by manual and/or electrical means through the use of a nail nipper and/or dremel-type cutter grinder operator, to a more viable healthy nail plate or bed tissue 6-10. Silver nitrate used for any petechial bleeding as necessary. Definitive antifungal treatment options have been reviewed and discussed with the patient. The patient chooses, no pharmaceutical tx - 32986.?Keratoma Treatment:?Parring or Cutting of Benign Hyperkeratotic Lesion(s)?(-57) More than 4 Lesions - The Benign hyperkeratotic lesions, as described above were pared, and/or cut utilizing a sterile 15 blade, tissue nippers, and/or dremel - 57233.? * Procedure Codes:?58295 DEBRI DE NAIL, 6 OR MORE, Modifiers: XS 61697 TRIM SKIN LESIONS, OVER 4, Modifiers: XS * Preventive Medicine:? ??Counseling:?Discussion:?-14: Office or other outpatient visit for the evaluation and management of an established patient, which required a medically appropriate history and/or examination and MODERATE level of DECISION MAKING for: 1 OR MORE CHRONIC PROBLEM(S) THATS WORSENING, 2 STABLE CHRONIC PROBLEMS, A NEWLY DIAGNOSED PROBLEM WITH UNCERTAIN PROGNOSIS, AN ACUTE COMPLICATED INJURY WITH MULTIPLE TREATMENT OPTIONS, OR AN ACUTE PROBLEM WITH ACCOMPANYING SYSTEMIC SYMPTOMS, THAT POSE(S) A MODERATE RISK OF MORBIDITY. THIS CONDITION MAY ALSO INCLUDE RX DRUG MANAGEMENT, OR A DECISON FOR MINOR SURGERY. The visit on the day of the encounter encompassed interpreting the data and educating the patient as to the nature of their condition, treatment options available according to their individual PMH, meds, allergies, and overall health/living conditions, as well as any potential risks or complications that may occur from a failure to adhere to, and participate in, the recommended course of therapy. The discussion included a complete verbal, and/or written explanation of the examination results, any x-rays taken, the proposed diagnosis, and outline of the treatment plan. A schedule for future care needs was also explained. The patient verbalized an understanding of the instructions at this time and agreed to be an active participant in their treatment. If the patient should think of any questions or concerns after the visit, I have encouraged the patient to call the office.?Digital Surgery:?Digital surgery was discussed with the patient, We elected to try conservative treatment at the present time, due to the patients medical history and increased asssociated post-operative risks.?Digital Treatment:?HT- I explained to the patient the possible etiologies of Hammertoes, including genetics/foot type/shoegear/activity level/exercise routine and the risks/benefits of all the different treatment options for their pain including: No treatment at all, Rest, Ice, New/supportive/wider/deeper Shoegear, Digital Padding/Strapping/Taping/Bracing/Gel protective sleeves, Foot/Ankle AFO Bracing, Stretching exercises, Deep Tissue Massage, Arch support/shoe inserts with splay metatarsal padding, and Custom orthoses. I insisted that any digital devices be removed daily and not worn overnight for safety. The patient is to carefully examine the toes daily for any skin irritation while using any splinting or padding device. The advantages and disadvantages of each option were discussed and the patients questions re: shoegear, padding, custom vs prefabricated inserts, activity level, and consistency in home treatment regimens for optimal success were answered to their verbally confirmed satisfaction.?Shoe Gear Counseling:?SHOE Rx - The patient was counseled in great detail on their muscoloskeletal foot and toe deformities which coincided with the dermatological presentations visualized on exam. We discussed how their deformities put the integrity of their feet at risk for potential pedal complications which makes the accomidative diabetic shoes and cutomizable inserts medically necessary. We discussed the different shoe and insert treatment types and options, as well as the important advantages for adhering to regularly wearing these accomidative devices daily. The patient was made aware of the fact that a failure to abide by these recommedations may be deleterious to their foot health as they are able to prevent many pedal complications such as skin irritation, skin ulceration, infection, and even loss of toe/foot/leg/or life. Time was also spent with the patient dispensing and discussing proper diabetic footcare techniques including daily skin moisturization, daily foot inspection for any interruption in skin integrity including open lesions, or sign of infection such as redness/malodor/drainage/swelling. Also discussed and recommended were procedures regarding daily shoe inspection for the presence of internal foreign bodies as well as any visualized irregular shoe or insert wear. Patient questions re: shoes, inserts, and self foot inspections were answered to their satisfaction as the patient verbally confirmed a full understanding of the above information. A Rx for Extra Depth Orthopedic Shoes with 3 pair of custom heat-molded inserts was dispensed.? ??Screening/Special Tests:?Fall Risk?Assessment:?Performed ?Plan of Care:?Documented ?Screening:?No falls in the past year ?FALLS: Screening for Future Fall Risk?Have you had any falls with injury in the past year??No * Follow Up:?prn * Images: * Sign off status: Completed true * Provider:?Cristofer Hilario DPM Date:?2023 Generated for Joseph oakley/Luis/Autumn on:?06/14/2024 09:04 AM EST History and Physical Notes * HPI (History of Present Illness) Category Sub-Category Detail Notes Category Not es Toe pain Location: B/L feet Duration: several years Course: worse Aggravated by: shoes, any pressure Treatments: change in shoes At Risk footcare Pt States Last PCP Visit: Date: 4 Examination Category Sub-Category Detail Notes Category Not es Neurological SENSORY: Neurological exa m demonstrates, reduced light touch sensation, reduced sharp/dull discrimination , reduced vibration sensation, in a stocking fashion, B/L, 5.07 monofilament test performed at plantar aspects of 5 varied sites per foot shows sensation, reduced, B/L Dermatologic SKIN FINDINGS: Skin exam reveal s Keratotic lesion(s) located at, Medial plantar, IPJ, TA, Medial plantar, IPJ, T5, SUB MTH (s), 1, B/L, SUB MTH (s), 5, B/L , SUB 5th MTBase, B/L , Heel(s), B/L Orthopedic FOOT MORPHOLOGY: Pes Planus stru cture, No Charcot collapse/destruction noted at MTJ FOOTWEAR: worn, OT were inspec hector and noted to be severely worn , in poor condition not giving proper support at the present time, shoegear properties exacerbate patient's foot/toe deformity DIGITAL DEFORMITIES: Amputation T7, Digi sinai contracture, PIPJ, 2-5 B/L (Save T7), incompletely reducable with WB, or to push-up test, no over, nor underlapping, with evidence of shoe producing skin irritation MUSCLE STRENGTH: 5/5 all groups in a symmetrical fashion , B/L General Examination GENERAL APPEARANCE: Reveals a pleasant, alert, well nourished, well-developed, well hydrated individual, who demonstrates proper attention to hygiene/body habitus, and is in no acute distress , Pt accompanied by , Daughter , who serves as , [employer] Paraprofessional/Signal Technician , additional Historian , and/who is physically present in exam room at time of visit FOOT EXAM: Lower Extremity Neurological Exa m performed:: Yes ORIENTED: person, place, and t horacio Footwear Evaluation Footwear Evaluation performe d:: Yes Ophthalmology Referral DIABETES EYE EXAM Diabetic Retinopa thy Screening:: Yes Findings of Diabetic Eye Exam:: no retin opathy Vascular DP PULSES (B): 2/4, B/L PT PULSES (B): 0/4, B/L CAPILLARY FILL TIME: 3 secs. per digit, B/L TEMPERTURE GRADIENT (C): decreased, cool to cool, proximal to distal, B/L TROPHIC CONDITION-TEXTURE/ELASTICITY/TURGOR/HAIR GROWTH (B): decreased, with sparse to absent hair gr owth, B/L EDEMA (C): 2/4, non-pitting, wi thout aching pain, B/L, Leg(s), Ankle(s) PIGMENTATION: mottled, B/L AMPUTATION, NON-TRAUMATIC (A): T7 Nails NAILS are: Elongated, overg rown, dystrophic, lytic, greater than 3mm thick, discolored and friable with crumbly malodorous subungual debris, 1-5 Left foot, T5, T6, T8, T9
--- OUTSIDE RECORDS SUMMARY | 2024-06-14 09:04 | XMS_ITS ---
Author Organization [facility] Address [address] [place] [address] Care Team Providers Care Ram Press Operator Name Role Phone Garry Zuleta MD, [facility] Primary Care Provide r Unavailable Cristofer Hilario Unavailable [phone] REASON FOR VISIT Next appt Encounters Encounter Location Date Provider Diagnosis [address] [address] 04/05/2024 Cristofer Hilario Plan Of Treatment Next Appt Details Provider Name:Cristofer Hilario , 07/12/2024 12:30:00 PM, [address] [place] [address], [phone], Progress Notes * Dora FERNANDEZDOB:[birth year] (54 yo F)Acc No.[id number]:04/05/2024 Patient:?Dora Fernandez :1970???Age:54 Y???Sex:Female Address:[address] [place] [address] [place], [address] * true * Date:? Generated for Printi ng/Faireneg/eTransmitting on:?06/14/2024 09:04 AM EST
--- OUTSIDE RECORDS SUMMARY | 2024-06-14 09:05 | XMS_ITS | Data Portability ---
Author Organization [facility], [place] in - [facility]ly [facility] Address [address] [place] [address] Care Team Providers Care Civil Designer Name Role Phone [facility] Referring Provider Assessment Encounter Date Assessment Date Assessment LastModified by Organization Details LastModified Time 01/03/2023 01/03/2023 I provided real -time medical direction via phone for this encounter, and was available for additional phone based assistance as needed. I have reviewed and agree with the Assessment and Plan as documented by the Joint Machine Operator. Patient given the opportunity to ask questions. Advised if develops CP/severe SOB/turning blue/uncontrolle d n/v/d or black/bloody emesis or stool/ AMS/ syncope/redness extending up the leg or high fever to call 911- verbalized understanding of instructions [email or web address] Not available 01/04/2023 10:40:07 Plan of Treatment Reminders Order Date Submit Date Provider Last Modified By Organization Details Last Modified Time Details Appointments None recorded. Lab BMP, serum or plasma 2022 023 [email or web address] 0 [facility], [address] [place] [address], [phone], 3 13:54:32 glucose, fingerstick , blood 2022 023 [email or web address] 0 [facility], [address] [place] [address], [phone], 3 13:16:40 Referral None recorded. Procedures None recorded. Surgeries None recorded. Imaging None recorded. Medication Orders sodium chloride 0.9 % intravenous solution 2022 023 [email or web address] 0 Not available 13:16:40 bacitracin 500 unit/gram topical ointment 2022 023 [facility], [address] [place] [address], [id number], 12:54:15 bacitracin 500 unit/gram topical ointment 2022 023 [email or web address] 0 [facility], [address] [place] [address], [id number], 13:54:32 Patient TargetsNo targets recorded. Patient InstructionsNo instructions recorded. Reason for Referral None Reported. Results Created Date Observation Date Name Description Value Unit Range Abnormal Flag Note LastModifiedBy Organization Detail LastModifiedTime 01/04/2001/03/2023 BMP, serum or plasm a BUN 18 Not Available [facility] - [facility] [address], [address], 01/03/2023 13:17:08 01/04/20 23 01/03/2023 BMP, serum or plasm a Ca I hanh 1.12 Not Available Main - Inst [address], [address], 01/03/2023 13:17:08 01/04/20 23 01/03/2023 BMP, serum or plasm a CI- 100 Not Available Main - Ins [address], [address], 01/03/2023 13:17:08 01/04/20 23 01/03/2023 BMP, serum or plasm a CRE 1 Not Available Main - [facility] [address], [address], 01/03/2023 13:17:08 01/04/20 23 01/03/2023 BMP, serum or plasm a GLU 439 Not Available Main - [facility] [address], [address], 01/03/2023 13:17:08 01/04/20 23 01/03/2023 BMP, serum or plasm a K+ 4.6 Not Available Main - [facility] [address], [address], 01/03/2023 13:17:08 01/04/20 23 01/03/2023 BMP, serum or plasm a Na+ 136 Not Available Main - Ins [address], [address], 01/03/2023 13:17:08 01/04/20 23 01/03/2023 BMP, serum or plasm a tCO2 27 Not Available Main - Ins [address], [address], 01/03/2023 13:17:08 01/04/20 23 01/03/2023 gluco se, finge rsjoanne k, blood Blood Glucose: mg/dl 515 Not Available Main - Inst[facility] [address] [place] [address], [phone], 01/03/2023 13:06:57 Result Notes None recorded. Medical Equipment None Reported. Allergies No known drug allergies Medications Name Sig Start Date Stop Date Status Note LastModified by Organization Details LastModified Time medbox status USE DIRECTED active Not Available Not Available No t Available atorvastatin 40 mg tablet TAKE 1 TABLET BY MOUTH AT BEDTIME active Not Available Not Available No t Available isosorbide mononitrate ER 30 mg tablet,exten ded release 24 hr TAKE 1 TABLET BY MOUTH EVERY MORNING active Not Available Not Available No t Available simvastatin 10 mg tablet TAKE 1 TABLET BY MOUTH AT BEDTIME active Not Available Not Available No t Available bacitracin 500 unit/gram topical ointment 1 application now to 4th toe sparingly with dsd active Not Available Not Available No t Available oxcarbazepin e 300 mg tablet TAKE 1 TABLET BY MOUTH TWICE DAILY IN THE MORNING AND IN THE EVENING active Not Available Not Available No t Available aspirin 81 mg tablet,delay ed release TAKE 1 TABLET BY MOUTH EVERY MORNING active Not Available Not Available No t Available lisinopril 10 mg tablet TAKE 1 TABLET BY MOUTH EVERY MORNING active Not Available Not Available No t Available nitroglyceri n 0.4 mg sublingual tablet DISSOLVE 1 TABLET UNDER THE TONGUE EVERY 5 MINUTES NEEDED FOR CHEST PAIN. CALL 911 IF NO RELIEF active Not Available Not Available No t Available gabapentin 300 mg capsule TAKE 1 CAPSULE BY MOUTH TWICE DAILY IN THE MORNING AND AT BEDTIME active Not Available Not Available No t Available omeprazole 20 mg capsule,lavinia yed release TAKE 1 CAPSULE BY MOUTH EVERY MORNING active Not Available Not Available No t Available sodium chloride 0.9 % intravenous solution Inject 1000 mL by intravenous route. 2022 active Not Available Not Available Not Avai lable metoprolol succinate ER 25 mg tablet,exten ded release 24 hr TAKE 1 TABLET BY MOUTH EVERY EVENING active Not Available Not Available No t Available ertapenem 1 gram solution for injection active Not Available Not Available No t Available escitalopram 10 mg tablet TAKE 1 AND 1/2 TABLETS BY MOUTH IN THE MORNING active Not Available Not Available Not Available Novolog FlexPen U-100 Insulin aspart 100 unit/mL (3 mL) subcutaneous INJECT 12-26 UNITS SUBCUTANEOU SLY THREE TIMES DAILY DIRECTED active Not Available Not Available Not Available bupropion HCl XL 300 mg 24 hr tablet, extended release TAKE 1 TABLET BY MOUTH EVERY MORNING active Not Available Not Available No t Available eszopiclone 3 mg tablet TAKE 1 TABLET BY MOUTH AT BEDTIME NEEDED FOR SLEEP active Not Available Not Available No t Available FreeStyle Lite Strips TEST BLOOD SUGAR TWICE DAILY active Not Available Not Available No t Available Vitamin D3 50 mcg (2,000 unit) capsule TAKE 1 CAPSULE BY MOUTH EVERY MORNING active Not Available Not Available No t Available UltiCare Pen Needle 32 gauge x 5/32 USE FOUR TIMES DAILY active Not Available Not Available Not Available TRUEplus Lancets 33 gauge TEST BLOOD SUGAR FOUR TIMES DAILY active Not Available Not Available Not Available Maria D SoloStar U-300 Insulin 300 unit/mL (1.5 mL) subcutaneous pen INJECT 54 UNITS SUBCUTANEOU SLY AT BEDTIME active Not Available Not Available No t Available Dexcom G6 Sensor device USE DIRECTED EVERY 10 DAYS active Not Available Not Available No t Available Dexcom G6 Transmitter device USE DIRECTED active Not Available Not Available No t Available Ozempic 1 mg/dose (4 mg/3 mL) subcutaneous pen injector Inject 1 MG SUBCUTANEOU SLY EVERY 7 DAYS IN THE ABDOMEN, THIGHS OR UPPER ARM. ROTATE INJECTION SITES. active Not Available Not Available No t Available Vitals Date Recorded Oxygen saturation Oxygen saturation in Arterial blood by Pulse oximetry Respiratory rate Body temperature Heart rate Systolic blood pressure Diastolic blood pressure Provider Name and Address Organization Details Last Updated DateTime 3 96 % 96 % 18 /min 98.2 [degF] 78 /min 140 mm[Hg] 94 mm[Hg] Not Available [facility] - production 12:56:03 Date Recorded Body weight Provider Name an d Address Organization Details Last Updated DateTime 01/03/2023 306892.37 g Ana Springer [address] [place] [address],[address], [place], [address], [place] [email or web address] 01/03/2023 13:00:08 Social History None recorded. Functional Status None recorded. Mental Status None recorded. Family History Nothing Reported. Medical History No medical history recorded. Gynecological HistoryNo gynecological history recorded. Obstetrics History GPAL:G 0 P 0 0 0 0 Past Encounters Encounter ID Performer Location Encounter Start Date Encounter Closed Date Diagnosis/Indication Diagnosis SNOMED-CT Code Diagnosis ICD10 Code [id number] Cinthya Bowers MD [facility] - [address] [address] 01/03/2023 12:55:53 01/04/2023 09:10:33 [facility] 86855078 M86.9 [facility] 79034714 R 73.9 Health Concerns Section Related Observation LastModified by Organization Detai ls LastModified Time None Recorded Concern Status LastModified by Organization Details LastModified Time None Recorded Advance Directives Directive None Recorded Payers Encounter Date Sequence Insurance Name Policy Number Policy Weller Covered Member ID Weller Member ID Guarantor Name 01/03/2023 1 [facility] - DOS ON OR AFTER 2022 - DUAL ELIGIBLE - CARE HOME OPTIONS AND ONE CARE (MEDICARE REPLACEMENT/AD VANTAGE - HMO) Dora Fernandez [id number] Dora Fernandez Notes Date Note Type Note Provider Name and Address Organization Details Recorded Time 01/03/2023 text/html HPI: Patient HX: Anemia,HTN, Obesity........... .................. .................. .................. .................. .................. .................. .................. .... CRC Nursing Assessment: Comments: CRC RN did not require any additional information to process this visit. .................. .................. .................. .................. .................. .................. .................. ............... Joint Machine Operator Note From Gabriella Agrawal: [facility] Joint Machine Operator Curt Agrawal CCA1 dispatched to [facility] for a 52 yof in need of wound care/assessment. Upon arrival, the pt was ambulatory w/ a UVALDO wagoner X4, in no apparent distress. Her daughter/gathering worker translated for her ([place] speaking only). She stated that she noticed the 4th toe on her right foot appeared red and swollen a week prior, and sought care in the ED. She was admitted for 3 days and diagnosed w/ osteomyelitis. She was discharged 3 days prior w/ a PICC line and at home ertapenem. The pt denied any fevers, headache, dizziness, N/V/D, cough, sore throat, CP, SOB, abd pain. She stated increased thirst and urination for the past 2 days; she denied any pain, malodor, or discoloration. No CVA tenderness, lung sounds clear, no pedal edema, pedal pulses present. The pt and her daughter noticed the night prior that the toe had become an open wound and was bleeding. A RN had assessed and bandaged the toe prior to [facility] arrival that day. Pictures in [facility]; the first of the initial injury, the second the day of [facility] visit. C consulted; pt was given clear written instruction for wound care and instructions to acquire more of the necessary supplies (rx for bacitracin as well). BMP acquired; blood sugar 515, daughter administered 12 units of novolog. Pt was given 1 L NS through a #20 IV in her left wrist, and clear written instructions for updated insulin use (12 units of novolog before meals and 38 units of toujeo at night). It was stressed to the pt and her daughter that the PCP should be contacted NAEEM about this change, as well as a request for wound care supplies. Red flags discussed at length. .................. .................. .................. .................. .................. .................. .................. ............... Disposition: Amelia Lombardo MD: Patient is currently taking 10 units of NovoLog before meals /when she does an abbreviated sliding scale after meals and Toujeo 36 units at bedtime. Her fasting blood sugar this morning was 200. Patient does have neuropathy and has decreased sensation to her feet. She denies fevers or chills. She has noted polyuria and polydipsia for the past 2 days/consistent with hyperglycemia. No UTI symptoms. She was informed she could not get a rn neurology appointment until Monday. She has an appointment with wound care outpatient on 01/09 and an appointment with her PCP on 01/10/2023 Cinthya Bowers MD [address] [facility],[address], [place], [address], [employer] 01/04/2023 10:42:10 OBGyn Episode No OBEpisode recorded.
--- OUTSIDE RECORDS SUMMARY | 2024-06-14 09:05 | XMS_ITS | Patient Health Record ---
Author Organization [facility] Address [address] [facility] [place] [address] Care Team Providers Care Line Haul Owner Operator Name Role Phone Garry Zuleta MD, [facility] Primary Care Provide r Unavailable Cristofer Hilario Unavailable [phone] Allergies No Known Allergies Results Component Value Reference Range Notes HEMOGLOBIN A1C (GLYCOHEMOGLO BIN) Reviewed date:10/06/2023 01:50:28 PM Interpretation: Performing Lab: Notes/Report: HEMOGLOBIN A1C % (HH) 12.9 Reason For Referral No Information Medications Medication SIG (Take, Route, Frequency, Duration) Notes Start Date End Date Status Extra Depth Orthopedic Shoes (1 Pair) with Customized Heat Molded Multidensity Innersoles (3 Pair) as directed Dx: NIDDM/Polyneuropathy (E11.42), Hammertoe Foot Deformity (M20.41,M20.42), Preulcerative Skin Lesion(s) (L85.1 04/05/2024 Active Neurontin 300 MG 1 capsule Orally Onc e a day for 30 day(s) Active Lisinopril 10 MG 1 tablet Orally Once a day for 30 day(s) 08/12/2019 Active OXcarbazepine 300 MG TAKE 1 TABLET BY [facility] TWICE DAILY IN THE MORNING AND IN THE EVENING Oral for 30 Active Omeprazole 20 MG 1 capsule 30 minutes before morning meal Orally Once a day for 30 day(s) 08/12/2019 Active buPROPion HCl ER (XL) 300 MG TAKE 1 TABLET BY MOUTH EVERY MORNING Oral for 30 Active traZODone HCl 50 MG 1 tablet at bedtime as needed Orally Once a day for 30 day(s) Not-Taking Aspirin EC 81 MG as directed Orally 08/12/2019 Active Gabapentin 300 MG TAKE 1 CAPSULE BY [facility] TWICE DAILY IN THE MORNING AND AT BEDTIME Oral for 30 Not-Taking Glucose 4 GM as directed Orally Active Colace 100 MG 1 capsule as needed Orally Once a day for 30 day(s) Active Fluticasone Propionate 50 MCG/ACT 1 spray in each nostril Nasally Once a day for 30 day(s) Active Escitalopram Oxalate 10 MG TAKE 1 TABLET BY MOUTH AT BEDTIME Oral for 30 Active Lexapro 10 MG 1 tablet Orally Once a day for 30 day(s) Active zzzCompression Stockings 20-30mm Hg . . . for . Active Augmentin 500-125 MG 1 tablet Orally sean ry 8 hrs for 7 day(s) Not-Taking Ammonium Lactate 12 % 1 application Externally Twice a day for 30 days Active Artificial Tears 0.1-0.3 % as directed Ophthalmic Activ e NovoLOG 100 UNIT/ML as directed Subcutaneous Not-Taking Acarbose 50 MG as directed Orally Active Doxycycline Hyclate 100 MG 1 tablet Orally Once a day for 10 day(s) Not-Taking traMADol HCl 50 MG 1 tablet as needed Orally Once a day Active Simvastatin 10 MG 1 tablet in the even ing Orally Once a day for 30 day(s) 08/12/2019 Active Vitamin D3 50 MCG (1999 UT) TAKE 1 CAPSULE BY MOUTH EVERY MORNING Oral for 30 Active Trulicity 0.75 MG/0.5ML as directed Subcutaneous Active flonase 50 mcg/act A ctive Trulicity Active Immunizations Vaccine Route Administration Date Status Comme nts COVID-19 Moderna Vaccine Unknown 08/11/2020 Administere d COVID-19 Moderna Vaccine Unknown 09/08/2020 Administere d Influenza Unknown 02/18/2019 Administered Influenza Unknown 11/18/2019 Administered Social History Tobacco Use: Social History Observation [...] Are you an other tobacco user? No Problems Problem Type SNOMED Code ICD Code Onset Dates Problem Status W/U Status Risk Notes Problem Acquired hammer toe of right foot (5639246310678215 ) Other hammer toe(s) (acquired), right foot (M20.41) Active confirmed Problem Acquired hammer toe of left foot (3909988203956228 ) Other hammer toe(s) (acquired), left foot (M20.42) Active confirmed Problem Polyneuropathy due to type 2 diabetes mellitus (248372592) Type 2 diabetes mellitus with diabetic polyneuropathy (E11.42) Active confirmed Vital Signs Height 5ft9.5in in 04/05/2024 Weight 351 lbs 04/05/2024 BMI 51.08 kg/m2 04/05/2024 Procedures Procedure Date Ordered Date Performed Result Body Sit e 76313-DVWXIHX NAIL, 6 OR MORE 07/28/2023 N/A 86892-HEZY SKIN LESIONS, OVER 4 07/28/2023 N/A 70362-YFMKCIJ NAIL, 6 OR MORE 10/06/2023 N/A 38538-AXVL SKIN LESIONS, OVER 4 10/06/2023 N/A 88655-MKPCJFC NAIL, 6 OR MORE 04/05/2024 N/A 24867-TSES SKIN LESIONS, OVER 4 04/05/2024 N/A Encounters Encounter Location Date Provider Diagnosis [address] [address] 07/28/2023 Cristoferreyna Brooksier Type 2 diabetes mellitus with diabetic polyneuropathy E11.42 ; Tinea unguium B35.1 and Xerosis of skin L85.[address] [address] 10/06/2023 Cristoferreyna Hilario Type 2 diabetes mellitus with diabetic polyneuropathy E11.42 ; Tinea unguium B35.1 and Xerosis of skin L85.[address] [address] 04/05/2024 Cristofer Yanelis Type 2 diabetes mellitus with diabetic polyneuropathy E11.42 ; Tinea unguium B35.1 ; Other hammer toe(s) (acquired), right foot M20.41 and Other hammer toe(s) (acquired), left foot M20.42 [facility] [address] [address] 12/19/2023 Cristofer Hilario [facility] [address] [address] 04/05/2024 Cristofer Hilario [facility] Encounter Date Diagnosis (ICD Code) Assessment Notes Treatment Notes Treatment Clinical Notes Section Notes 10/06/2023 Type 2 diabetes mellitus with diabetic polyneuropathy (ICD-10 - E11.42) 10/06/2023 Tinea unguium (ICD-10 - B35.1) 07/28/2023 Type 2 diabetes mellitus with diabetic polyneuropathy (ICD-10 - E11.42) 07/28/2023 Tinea unguium (ICD-10 - B35.1) 04/05/2024 Type 2 diabetes mellitus with diabetic polyneuropathy (ICD-10 - E11.42) 04/05/2024 Tinea unguium (ICD-10 - B35.1) 10/06/2023 Xerosis of skin (ICD-10 - L85.3) 04/05/2024 Other hammer toe(s) (acquired), right foot (ICD-10 - M20.41) Patient Educated with: DIABETIC FOOT CARE INSTRUCTIONS. pdf (DIABETIC FOOT CARE INSTRUCTIONS. pdf) 04/05/2024 Other hammer toe(s) (acquired), left foot (ICD-10 - M20.42) 07/28/2023 Xerosis of skin (ICD-10 - L85.3) Plan Of Treatment Pending Test Test Name Order Date X ray : Foot, right 3V 04/13/2022 83111-UGKYXOR NAIL, 6 OR MORE 08/29/2022 47075-IGUJGIM NAIL, 6 OR MORE 03/02/2022 62428-SILHAOA NAIL, 6 OR MORE 11/02/2022 61881-EEAOOQD NAIL, 6 OR MORE 02/23/2023 78175-MCXYVHL NAIL, 6 OR MORE 05/24/2021 32167-VYBKWIL NAIL, 6 OR MORE 08/02/2021 84639-EMBELTP NAIL, 6 OR MORE 10/11/2021 42730-VYUBSVU NAIL, 6 OR MORE 12/22/2021 76470-RXEBZLK NAIL, 6 OR MORE 11/18/2019 05571-CLETMSA NAIL, 6 OR MORE 02/03/2020 54901-VVGVRQY NAIL, 6 OR MORE 06/01/2020 16822-FFHUNND NAIL, 6 OR MORE 08/10/2020 28231-ZIEAGYA NAIL, 6 OR MORE 10/19/2020 21045-EECGBEY NAIL, 6 OR MORE 12/28/2020 73512-POZXGDB NAIL, 6 OR MORE 03/15/2021 63117-AFAIMPE NAIL, 6 OR MORE 05/16/2023 66523-YGTVTVZ NAIL, 6 OR MORE 07/28/2023 13730-XBLSNFI NAIL, 6 OR MORE 10/06/2023 98917-YHIIRYW NAIL, 6 OR MORE 04/05/2024 89448-GIEYJIC NAIL, 1-5 08/12/2019 90535- Debride <25 sq cm 06/01/2020 65688- Debride <25 sq cm 02/03/2020 78806- Debride <25 sq cm 04/13/2022 21783-QPSDNBF SKIN/TISSUE 05/16/2023 06747-LKBA SKIN LESIONS, OVER 4 05/16/20 23 02481-KXHX SKIN LESIONS, OVER 4 07/28/19 24 15295-JIPB SKIN LESIONS, OVER 4 04/05/20 24 31581-PZOK SKIN LESIONS, OVER 4 10/06/19 24 85965-MGVD SKIN LESIONS, OVER 4 02/03/20 20 48539-LUZQ SKIN LESIONS, OVER 4 06/01/20 20 96908-GVJH SKIN LESIONS, OVER 4 11/18/19 20 81248-SUJV SKIN LESIONS, OVER 4 03/15/20 21 98209-GYQW SKIN LESIONS, OVER 4 12/29/19 73276-QDAF SKIN LESIONS, OVER 4 10/20/19 21 54524-TEXI SKIN LESIONS, OVER 4 08/10/19 21 00892-FKOK SKIN LESIONS, OVER 4 12/23/19 20871-XCGU SKIN LESIONS, OVER 4 10/12/19 12156-RVQW SKIN LESIONS, OVER 4 08/02/19 22 02838-XGQZ SKIN LESIONS, OVER 4 05/24/20 21 06487-KLZO SKIN LESIONS, OVER 4 02/24/20 23 51901-OTTC SKIN LESIONS, OVER 4 11/03/19 23 92401-VFEH SKIN LESIONS, OVER 4 03/02/20 89796-MHWJ SKIN LESIONS, OVER 4 08/30/19 23 59606-EIJV SKIN LESIONS, 2 TO 4 08/12/19 20 08375-Hbec. Subungual Hematoma 3 Next Appt Details Provider Name:Cristofer Hilario , 07/12/2024 12:30:00 PM, [address] [place] [address], [phone], Insurance Providers Payer Name Payer Address Payer Phone Subscriber Number Group Number Insured Name Patient Relationship to Insured Coverage Start Date Coverage End Date [facility] [address] [address] [place] [address] [phone] [id number] Dora Fernandez Self - patient is the insured Medical (General) History Medical History History ICD Code CAD Chicken pox Depression Diabetes mellitus, Type II High blood pressure Kidney disease Poor circulation Transfusions ulcer Reflux Chronic Kidney Disease, Stage III (moder ate) Obesity Diabetic foor ulcer Hypertension, essential, benign Neuropathy edema Hyperlipidemia Charcot foot, due to DM Varicose veins Diabetic foot Ulcer Surgical History Surgery Date(Month/Year)
--- OUTSIDE RECORDS SUMMARY | 2024-06-14 09:05 | XMS_ITS ---
Author Organization [facility] Address [address] [place] [address] Care Team Providers Care Installer Name Role Phone Garry Zuleta MD, [facility] Primary Care Provide r Cristofer Owusu Unavailable [phone] Encounters Encounter Location Date Provider Diagnosis [address] [address] 12/19/2023 Cristofer Hilario Plan Of Treatment Next Appt Details Provider Name:Cristofer Hilario , 07/12/2024 12:30:00 PM, [address] [place] [address], [address], Progress Notes * Dora FERNANDEZDOB:[birth year] (54 yo F)Acc No.[id number]:12/19/2023 Progress Note Patient:?Dora FERNANDEZ Provider:?Cristofer Hilario DPM :1970???Age:53 Y???Sex:Female D ate:12/19/2023 Address:[address] [place] [address] [place] Pcp:Edwin Zuleta MD Subjective: * Chief Complaints: * ??? * Medical History:? Objective: * Vitals:? Assessment: Plan: * Treatment: * Images: * The named appointment provid er may or may not be the originator of this progress note, and it is not deemed complete until electronically signed by the appointment provider. Sign off status: Pending * Provider:Alba Hilario DPM Date:?2023 Generated for Joseph oakley/Luis/Autumn on:?06/14/2024 09:04 AM EST
== END 2024-06-14 10:18 | disposition home or self-care (01) ==
PROVIDERS: PCP Internal Medicine; Visit Provider Nurse Practitioner Family
DX: Z01.818 Encounter for other preprocedural examination (principal); Z12.11 Encounter for screening for malignant neoplasm of colon
CPT/HCPCS: 99024

== ENCOUNTER → 2024-06-14 08:50 | Outpatient (BNVA) | payer OTHER, SELFPAY | PROVIDERS: PCP Internal Medicine; Visit Provider Nurse Practitioner Family | DX: Z01.818 Encounter for other preprocedural examination (principal) | CPT/HCPCS: 99212 ==

== ENCOUNTER 2024-06-24 14:33 | Inpatient (IN) | payer OTHER, SELFPAY ==
--- NOTE | ~2024-06-24 | XR_ITS ---
EXAMINATION: XR FOOT 3 OR MORE VIEWS RIGHT HISTORY: Right foot wound. osteomyelitis COMPARISON: Comparison is made with the prior examination dated 12/27/2022. FINDINGS: Three views of the right foot are submitted. Osseous mineralization is normal. Again seen is amputation of the 2nd toe at the level of the DIP joints and amputation of the 3rd toe at the level of the MCP joint. There is no fracture or dislocation. No focal lytic lesion is identified. There is severe degenerative change of the tarsometatarsal and intertarsal joints. There is a large plantar calcaneal spur. There is soft tissue swelling over the 5th MTP joint. XR/XR foot RT min 3V IMPRESSION: 1. Soft tissue swelling over the 5th MTP joint. No plain film evidence of osteomyelitis. If this remains a clinical concern, three-phase bone scan or MRI could be performed. 2. Severe osteoarthritis of the intertarsal and tarsometatarsal joints. Electronically signed by: Baudilio Kirkland MD 06/24/2024 03:47 PM EST
--- NOTE | ~2024-06-24 | MR_ITS ---
EXAMINATION: MR FOOT WITHOUT THEN WITH IV CONTRAST RIGHT HISTORY: R foot infected wound, assess for osteo and/or abs. TECHNIQUE: Sagittal T1 and STIR, coronal STIR, and axial T1 and STIR images of the right forefoot were obtained. Axial fat-suppressed T1-weighted images were also obtained. Subsequently, sagittal, axial, and coronal fat suppressed T1-weighted images were obtained after the intravenous administration of 10 mL Gadavist. COMPARISON: Comparison is made with the prior examination dated 12/29/2022. Correlation is also made with plain films of the right foot dated 06/24/2024. FINDINGS: There is a soft tissue ulceration over the MTP joint of the 5th toe. There is associated skin thickening and subcutaneous edema. There is no loculated fluid collection. Again seen is cystic change involving the 5th metatarsal head. There is no associated bone marrow edema or osseous destruction. Remaining bone marrow signal intensity is also normal. The patient is status post amputation of the 3rd toe at the MTP joint and the 4th toe at the DIP joint. There is moderate to severe osteoarthritis of the tarsometatarsal and intertarsal joints. No definite muscular or tendinous abnormality is identified. MR/MR foot RT wo/w con IMPRESSION: 1. Soft tissue ulceration over the MTP joint of the 5th toe. No evidence of osteomyelitis or abscess. 2. Severe osteoarthritis of the intertarsal and tarsometatarsal joints. Electronically signed by: Baudilio Kirkland MD 06/25/2024 11:57 AM EST
[2024-06-24 14:37] VITALS: BP 137/55; PULSE 77; RESP 20; TEMP 36.2; O2SAT 98; BMI 50.2
--- NOTE | 2024-06-24 14:39 | ED.GENADULT ---
HPI - General Adult General Chief complaint: Skin/Abscess/Foreign Body Stated complaint: R foot wound Time Seen by Provider: 06/24/24 17:36 Source: patient, family and old records reviewed Mode of arrival: ambulatory Limitations: no limitations History of Present Illness ED Provider: GAURI HPI narrative: 54 yo female with PMH of obesity, DM with neuropathy, osteomyelitis, prior amputation of toe on R foot, HLD, HTN here with c/o R foot wound that she thinks was caused by hard plastic slipper her dog partially ate. She notes foot wound on top of foot since 06/18 then in the last few days it opened up on the bottom of the foot and exploded pus . No fevers, n/v/d. They tried to manage at home but they are worried about losing another toe. MD complaint: foot wound Onset (ago): day(s) (since 06/18) Location: right and lower extremity Radiation: non-radiation Severity: mild Relieving factors: none Exacerbating factors: movement Associated symptoms: denies other symptoms Treatments prior to arrival: none Related Data Home Medications ?Medication ?Instructions ?Recorded ?Confirmed bupropion HCl 300 mg 24 hr tablet, 300 mg PO DAILY 03/20/20 06/24/24 extended release escitalopram oxalate 10 mg tablet 10 mg PO DAILY 03/20/20 06/24/24 gabapentin 300 mg capsule 300 mg PO BID 03/20/20 06/24/24 lisinopril 10 mg tablet 10 mg PO DAILY 03/20/20 06/24/24 omeprazole 20 mg capsule,delayed 20 mg PO DAILY@0630 03/20/20 06/24/24 release oxcarbazepine 300 mg tablet 300 mg PO BID 03/20/20 06/24/24 aspirin 81 mg tablet,delayed 81 mg PO DAILY 12/28/22 06/24/24 release insulin glargine U-300 conc 300 40 unit subcut BEDTIME 12/28/22 06/24/24 unit/mL (1.5 mL) subcutaneous pen (Toujeo SoloStar U-300 Insulin) insulin aspart U-100 100 unit/mL See Protocol subcut TIDAC 05/16/23 06/24/24 (3 mL) subcutaneous pen (Novolog FlexPen U-100 Insulin aspart) eszopiclone 3 mg tablet 3 mg PO BEDTIME PRN Sleep 06/14/24 06/24/24 lancets 33 gauge (TRUEplus Lancets) #100 ea 06/14/24 metoprolol succinate 25 mg 25 mg PO DAILY 06/14/24 06/24/24 tablet,extended release 24 hr pen needle, diabetic 32 gauge x #1,200 ea 06/14/24/32 (Pentips Pen Needle) semaglutide 0.25 mg or 0.5 mg (2 0.5 mg subcut MO 06/14/24 06/24/24 mg/3 mL) subcutaneous pen injector (Ozempic) Previous Rx's ?Medication ?Instructions ?Recorded blood-glucose transmitter (Dexcom #1 ea 09/06/21 G6 Transmitter device) blood sugar diagnostic (FreeStyle #120 ea 10/22/21 Lite Strips) cholecalciferol (vitamin D3) 50 2,000 unit PO DAILY #30 caps 03/09/22 mcg (2,000 unit) capsule atorvastatin 40 mg tablet 40 mg PO BEDTIME #90 tabs 03/09/23 nitroglycerin 0.4 mg sublingual 0.4 mg sublingual Q5M PRN chest 03/15/23 tablet pain #20 tabs celecoxib 200 mg capsule (Celebrex) 200 mg PO BID 30 days #60 caps 01/31/24 bisacodyl 5 mg tablet,delayed 10 mg (2 x 5 mg) PO BEDTIME #16 06/14/24 release (Dulcolax (bisacodyl)) tabs Allergies Allergy/AdvReac Type Severity Reaction Status Date / Time No Known Allergies Allergy Unknown Verified 06/24/24 14:39 Review of Systems Review of Systems: Constitutional : No Fever, No Chills ENT/Mouth : No sore throat, No Rhinorrhea Eyes: No Eye Pain, No Swelling, No Redness Cardiovascular : No Chest Pain, No SOB Respiratory : No Cough, No Sputum Gastrointestinal : No Nausea, No Vomiting, No Diarrhea, No abdominal Pain Genitourinary : No Dysuria, No Hematuria Musculoskeletal : No joint pain, No Myalgias, No Joint Swelling Skin :pos Skin Lesions, positive skin rash Neuro : No Weakness, No Numbness, No Headache Psych : No Anxiety, No Depression All other systems reviewed and are negative [facility] Past Medical History Attestation statement: The following information was validated with the patient. Source: old records reviewed Medical History (Updated 06/25/24 @ 07:34 by Dylan Lim MD) Wound of foot Toe ulcer due to DM Arm swelling Restrictive lung disease Dyspnea on exertion Morbid obesity Gallstones Obesity due to excess calories Chronic kidney disease, stage 3 Charcot foot due to diabetes mellitus Depression Vitamin D deficiency Hyperlipidemia LDL goal <100 Hypertension Diabetic polyneuropathy Type 2 diabetes mellitus with chronic kidney disease Surgical History Hx of colonoscopy History of partial ray amputation of third toe of right foot Hx of wisdom tooth extraction History of partial amputation of toe (2018) History of total hysterectomy with bilateral salpingo-oophorectomy (BSO) Family History Family History Father Type 2 diabetes mellitus Mother Type 2 diabetes mellitus Diverticulitis Hypertension Social History Social History Household Members: Family Household Members Other:: , mother Housing: Apartment Are you a primary care support representative to a significant other at home: No Do you presently have visiting nurse or other home services: 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 Oriented X3. No acute distress. Eyes: Pupils equal, round and reactive to light. ENT: Pharynx normal. Neck: Normal inspection. Neck supple. CVS: Normal heart rate and rhythm. Pulses normal. Respiratory: No respiratory distress. Breath sounds normal. Abdomen: Soft and nontender. Skin: Skin warm and dry. Normal skin color. Normal skin turgor. Extremities: No lower extremity edema. R foot on dorsum open wound with yellow underlying tract and open quarter sized yellow purulence and erythema around wound Neuro: Oriented X 3. No motor deficit. No sensory deficit. CN2-12 intact Course Course Course Narrative: RME: 54-year-old female presents to ED for worsening right foot wound with drainage foul odor for the past couple of days. Patient states history of diabetes. Physical exam positive for right dorsal wound with drainage. Labs x-ray ordered. Medications Administered Generic Name Dose Route Start Last Admin Trade Name Freq PRN Reason Stop Dose Admin Atorvastatin Calcium 40 mg 06/24/24 22:00 06/24/24 22:32 Atorvastatin Calcium 40 Mg Tablet PO 40 mg BEDTIME JUDY Administration Bisacodyl 10 mg 06/24/24 22:00 06/24/24 22:32 Bisacodyl 5 Mg Tablet. PO 10 mg BEDTIME JUDY Administration Gabapentin 300 mg 06/24/24 22:00 06/24/24 22:32 Gabapentin 300 Mg Capsule PO 300 mg BID JUDY Administration Piperacillin Sod/Tazobactam 50 mls @ 100 mls/hr 06/25/24 07:30 06/25/24 08:28 Sod 3.375 gm/ Sodium Chloride IV Infused Q6H JUDY Infusion Insulin Glargine 25 unit 06/24/24 21:00 06/24/24 22:32 Insulin Glargine,Hum.Rec.Anlog 100 Unit/Ml 10 Ml Vial SUBCUT 25 unit BEDTIME JUDY Administration Insulin Human Lispro 0 unit 06/24/24 19:35 06/25/24 07:44 Insulin Lispro 100 Unit/Ml 3 Ml Vial SUBCUT 8 unit QIDACHS JUDY Administration Protocol Omeprazole 20 mg 06/25/24 06:30 06/25/24 06:22 Omeprazole 20 Mg Capsule. PO 20 mg DAILY@0630 JUDY Administration Oxcarbazepine 300 mg 06/24/24 22:00 06/24/24 22:32 Oxcarbazepine 300 Mg Tablet PO 300 mg BID JUDY Administration Sodium Chloride 3 ml 06/25/24 00:00 06/25/24 07:46 0.9 % Sodium Chloride Flush 3 Ml Syringe IVFLUSH 3 ml QSHIFT JUDY Administration Discontinued Medications Generic Name Dose Route Start Last Admin Trade Name Freq PRN Reason Stop Dose Admin Piperacillin Sod/Tazobactam 50 mls @ 100 mls/hr 06/24/24 17:58 06/24/24 19:08 Sod 3.375 gm/ Sodium Chloride IV 06/24/24 18:27 Infused ONCE ONE Infusion Vancomycin HCl 2,000 mg in 500 mls @ 250 mls/hr 06/24/24 17:58 06/24/24 21:51 Vancomycin/Ns IV 06/24/24 19:57 Infused ONCE ONE Infusion Sodium Chloride 1,000 mls @ 999 mls/hr 06/24/24 18:06 06/24/24 21:51 Ns IVCONT 06/24/24 19:06 Infused .Q1H1M ONE Infusion Piperacillin Sod/Tazobactam 50 mls @ 100 mls/hr 06/25/24 01:00 06/25/24 02:08 Sod 3.375 gm/ Sodium Chloride IV Not Given Q6H JUDY Piperacillin Sod/Tazobactam 50 mls @ 100 mls/hr 06/25/24 02:00 06/25/24 02:13 Sod 3.375 gm/ Sodium Chloride IV Infused Q6H JUDY Infusion Insulin Human Regular 10 unit 06/24/24 18:06 06/24/24 18:32 Insulin Regular, Human 100 Unit/Ml 10 Ml Vial IVPUSH 06/24/24 18:07 10 unit ONCE ONE Administration Medical Decision Making Medical Decision Making MDM Narrative: 54 yo female with PMH of obesity, DM with neuropathy, osteomyelitis, prior amputation of toe on R foot, HLD, HTN here with c/o R foot wound since 06/18 on exam it is open and draining with erythema and exudate at this time labs, cultures, xray for osteo, IV antibiotics ordered. Planned admit Differential Diagnosis Differential Diagnoses: The differential diagnosis associated with the presentation includes osteo, abscess, infected wound Admission/Observation Consideration of admission/observation: Escalation of care including admission/observation considered will admit for IV abx Consult Healthcare Provider Management of the patient was discussed with: Hospitalist (will admit) and Top Trimmer surgery aware will follow inpatient Lab Data MDM Lab Attestation statement: I reviewed the patient's lab results. 06/25/24 04:50 06/25/24 04:50 Labs: Lab Results 06/24/24 06/24/24 Range/Units 14:53 15:42 WBC 7.6 (4.8-10.8) X10*3/uL RBC 4.61 (4.20-5.50) X10*6/uL Hgb 12.8 (12.0-16.0) g/dl Hct 39.9 (37.0-47.0) % MCV 86.6 (80.0-98.0) fL MCH 27.8 (27.0-33.0) pg MCHC 32.1 (31.0-35.0) g/dl RDW 11.8 (11.0-16.0) % Plt Count 242 (160-400) X10*3/uL MPV 12.2 (9.4-12.3) fL Immature Gran % (Auto) 0.2 (0.0-0.4) % Neut % (Auto) 59.0 (45-73) % Lymph % (Auto) 28.2 (20-40) % [place] % (Auto) 7.4 (2-11) % Eos % (Auto) 4.1 H (0-4) % Baso % (Auto) 1.1 (0-2) % Lymph # (Auto) 1.9 (1.2-4.9) X10*3/uL [place] # (Auto) 0.5 (0.1-1.2) X10*3/uL Eos # (Auto) 0.3 (0.0-0.4) X10*3/uL Baso # (Auto) 0.1 (0.0-0.2) X10*3/uL Abs Immat Gran (auto) 0.01 (0.00-0.03) X10*3/uL Absolute Neuts (auto) 3.9 (2.0-8.3) x10*3/uL Absolute Nucleated RBC 0.000 (0.0-0.012) X10*3/uL Nucleated RBC % (auto) 0.0 (0.0-0.2) /100WBC Smear Tech's Comments VERIFIED ESR 30 H (0-20) MM/HR Sodium 132 L (135-145) mmol/L Potassium 4.2 (3.3-5.1) mmol/L Chloride 97 (96-108) mmol/L Carbon Dioxide 27 (22-29) mmol/L Anion Gap 12 (12-20) BUN 20 H (9-16) mg/dL Creatinine 1.55 H (0.5-1.4) mg/dL Estim Creat Clear Calc 64.9 Estimated GFR 35 Random Glucose 460 H* (60-115) mg/dL Lactic Acid 1.9 (0.5-2.0) mmol/L Calcium 9.6 (8.4-10.2) mg/dL Total Bilirubin 0.5 (0.0-1.0) mg/dL AST 23 (5-31) U/L ALT 20 (0-31) U/L Alkaline Phosphatase 113 (39-117) U/L C-Reactive Protein 9.07 H (< or = 0.50) mg/dL Total Protein 8.2 H (6.5-8.0) g/dL Albumin 4.0 (3.5-5.0) g/dL Independent Interpretation I performed an independent interpretation of an: Plain X-Ray (no osteo) Radiology Impression Discussion of test interpretation with radiology: I have reviewed the radiologist's reading. Independent Historian Clinical information obtained from an independent historian. History obtained from or confirmed by: Other (daughter) External Record Review External record reviewed: Inpatient record and Outpatient record Discharge Plan Discharge Clinical Impression: Diabetic foot infection Patient Disposition: Admitted As Inpatient
[2024-06-24 15:23] LABS: Alanine Aminotransferase 20 U/L (0-31); Anion Gap 12 (12-20); Aspartate Amino Transferase 23 U/L (5-31); Bilirubin Total 0.5 mg/dL (0.0-1.0); Blood Urea Nitrogen 20 mg/dL (9-16); C Reactive Protein 9.07 mg/dL (< or = 0.50); Calcium 9.6 mg/dL (8.4-10.2); Carbon Dioxide 27 mmol/L (22-29); Chloride 97 mmol/L (96-108); Creatinine Clr Calc Pharmacy 64.9; Estimated Glomerular Filt Rate 35; Glucose Random 460 mg/dL (60-115); Potassium 4.2 mmol/L (3.3-5.1); Sodium 132 mmol/L (135-145); Total Protein 8.2 g/dL (6.5-8.0)
[2024-06-24 15:31] LABS: Basophils Absolute Auto 0.1 X10*3/uL (0.0-0.2); Basophils Percent Auto 1.1 % (0-2); Eosinophils Absolute Auto 0.3 X10*3/uL (0.0-0.4); Eosinophils Percent Auto 4.1 % (0-4); Hematocrit 39.9 % (37.0-47.0); Hemoglobin 12.8 g/dl (12.0-16.0); Imm Gran Abs Auto 0.01 X10*3/uL (0.00-0.03); Imm Gran Pct Auto 0.2 % (0.0-0.4); Lymphocytes Absolute Auto 1.9 X10*3/uL (1.2-4.9); Lymphocytes Percent Auto 28.2 % (20-40); MANUAL DIFF FLAG SCAN; Mean Corpuscular HGB Conc 32.1 g/dl (31.0-35.0); Mean Corpuscular Hemoglobin 27.8 pg (27.0-33.0); Mean Corpuscular Volume 86.6 fL (80.0-98.0); Mean Platelet Volume 12.2 fL (9.4-12.3); Monocytes Absolute Auto 0.5 X10*3/uL (0.1-1.2); Monocytes Percent Auto 7.4 % (2-11); Neutrophils Absolute Auto 3.9 x10*3/uL (2.0-8.3); PLT CLUMP 1; Red Blood Count 4.61 X10*6/uL (4.20-5.50); Red Cell Distribution Width 11.8 % (11.0-16.0); SCAN SMEAR FLAG 1
[2024-06-24 15:50] LABS: Alkaline Phosphatase 113 U/L (39-117)
[2024-06-24 15:57] LABS: Platelet Count 242 X10*3/uL (160-400); White Blood Count 7.6 X10*3/uL (4.8-10.8)
[2024-06-24 16:02] LABS: Lactic Acid 1.9 mmol/L (0.5-2.0)
[2024-06-24 16:05] LABS: SLIDE REVIEW VERIFIED
[2024-06-24 16:42] LABS: Erythrocyte Sedimentation Rate 30 MM/HR (0-20)
--- OUTSIDE RECORDS SUMMARY | 2024-06-24 16:49 | XMS_ITS ---
Author Organization [facility] Address [address] [place] [id number] Care Team Providers Care Scuba Diving Instructor Name Role Phone Garry Zuleta MD, [facility] Primary Care Provide r Unavailable Cristofer Hilario Unavailable [phone] REASON FOR VISIT Next appt Encounters Encounter Location Date Provider Diagnosis [address] [address] 04/05/2024 Cristofer Hilario Plan Of Treatment Next Appt Details Provider Name:Cristofer Hilario , 07/12/2024 12:30:00 PM, [address] [place] [address], [phone], Progress Notes * Dora FERNANDEZDOB:[birth year] (54 yo F)Acc No.[id number]:04/05/2024 Patient:?Dora Fernandez :1970???Age:54 Y???Sex:Female Address:[address] [place] [address] [place], [address] * true * Date:? Generated for Printi ng/Faireneg/eTransmitting on:?06/24/2024 04:48 PM EST
--- OUTSIDE RECORDS SUMMARY | 2024-06-24 16:49 | XMS_ITS | Data Portability ---
Author Organization [facility] [facility] [place] [facility] Address [address] [place] [id number] Care Team Providers Care Artist Manager Name Role Phone [facility] Referring Provider Assessment Encounter Date Assessment Date Assessment LastModified by Organization Details LastModified Time 01/03/2023 01/03/2023 I provided real -time medical direction via phone for this encounter, and was available for additional phone based assistance as needed. I have reviewed and agree with the Assessment and Plan as documented by the Ski Binding Fitter And Repairer. Patient given the opportunity to ask questions. Advised if develops CP/severe SOB/turning blue/uncontrolle d n/v/d or black/bloody emesis or stool/ AMS/ syncope/redness extending up the leg or high fever to call 911- verbalized understanding of instructions [email or web address] Not available 01/04/2023 10:40:07 Plan of Treatment Reminders Order Date Submit Date Provider Last Modified By Organization Details Last Modified Time Details Appointments None recorded. Lab BMP, serum or plasma 2022 023 [email or web address] 0 [facility], [address] [place] [address], [phone], 3 13:54:32 glucose, fingerstick , blood 2022 023 [email or web address] 0 [facility], [address] [place] [address], [phone], 3 13:16:40 Referral None recorded. Procedures None recorded. Surgeries None recorded. Imaging None recorded. Medication Orders sodium chloride 0.9 % intravenous solution 2022 023 [email or web address] 0 Not available 13:16:40 bacitracin 500 unit/gram topical ointment 2022 023 [facility], [address] [place] [address], [id number], 12:54:15 bacitracin 500 unit/gram topical ointment 2022 023 [email or web address] 0 [facility], [address] [place] [address], [id number], 13:54:32 Patient TargetsNo targets recorded. Patient InstructionsNo instructions recorded. Reason for Referral None Reported. Results Created Date Observation Date Name Description Value Unit Range Abnormal Flag Note LastModifiedBy Organization Detail LastModifiedTime 01/04/2001/03/2023 BMP, serum or plasm a BUN 18 Not Available [facility] [address], [address], 01/03/2023 13:17:08 01/04/20 23 01/03/2023 BMP, serum or plasm a Ca I hanh 1.12 Not Available [facility] - [facility] [address], [address], 01/03/2023 13:17:08 01/04/20 23 01/03/2023 BMP, serum or plasm a CI- 100 Not Available [facility] - [facility] [address], [phone], 01/03/2023 13:17:08 01/04/20 23 01/03/2023 BMP, serum or plasm a CRE 1 Not Available [facility] [address], [address], 01/03/2023 13:17:08 01/04/20 23 01/03/2023 BMP, serum or plasm a GLU 439 Not Available [facility] - [facility] [address], [address], 01/03/2023 13:17:08 01/04/20 23 01/03/2023 BMP, serum or plasm a K+ 4.6 Not Available [facility] - [facility] [address], [address], 01/03/2023 13:17:08 01/04/20 23 01/03/2023 BMP, serum or plasm a Na+ 136 Not Available [facility] - [facility] [address], [address], 01/03/2023 13:17:08 01/04/20 23 01/03/2023 BMP, serum or plasm a tCO2 27 Not Available [facility] - [facility] [address], [address], 01/03/2023 13:17:08 01/04/20 23 01/03/2023 gluco se, finge rsjoanne k, blood Blood Glucose: mg/dl 515 Not Available Main - [facility] [address] [place] [address], [phone], 01/03/2023 13:06:57 Result Notes None recorded. Medical [...] 94 mm[Hg] Not Available [facility] - production 3 12:56:03 Date Recorded Body weight Provider Name an d Address Organization Details Last Updated DateTime 01/03/2023 349110.37 g Ana Springer [address] [place] [address],[address], [place], [address], [place] - [employer] [facility] 01/03/2023 13:00:08 Social History None recorded. Functional Status None recorded. Mental Status None recorded. Family History Nothing Reported. Medical History No medical history recorded. Gynecological HistoryNo gynecological history recorded. Obstetrics History GPAL:G 0 P 0 0 0 0 Past Encounters Encounter ID Performer Location Encounter Start Date Encounter Closed Date Diagnosis/Indication Diagnosis SNOMED-CT Code Diagnosis ICD10 Code Diagnosis Note [id number] Cinthya Bowers MD [facility] [employer] [address] [place] [phone] 01/03/2023 12:55:53 01/04/2023 09:10:33 Osteomyelitis 28455045 M86.9 w/ open wound 4 th toe- -patient does not have a wound care appointmen t until 01/09/2023 and she has an appointmen t with her PCP 01/10. They could not get into see a plasterer stucco until February- advised to discuss with PCP if they can assist moving up appointmen tBS elevated- check BMP- ate scrambled eggs and 2 pieces toast w/ strawberry jam with powdered coffee creamer 3 hrs prior- given 12 units humalog per her SS by family- advised need to decrease carbs while has infection Wound care discussed. Wash with soapy water rinse copiously then pat dry with sterile gauze and apply bacitracin and cover with loose gauze dressing twice a day. Hyperglycemia 50034141 R 73.9 stay well hydrated w/ SF fluids- advised need to call pcp tomorrow - hyperglyce jonna likely due to infection- also advised decrease extra sugars like strawberry jam-while sugars running high advised to increase Toujeo to 38 units from 36 nightly/do 12 units of NovoLog (instead of 10 )before meals and then her usual sliding scale Health Concerns Section Related Observation LastModified by Organization Detai ls LastModified Time None Recorded Concern Status LastModified by Organization Details LastModified Time None Recorded Advance Directives Directive None Recorded Payers Encounter Date Sequence Insurance Name Policy Number Policy Weller Covered Member ID Weller Member ID Guarantor Name 01/03/2023 1 [facility] - DOS ON OR AFTER 2022 - DUAL ELIGIBLE - NURSING HOME OPTIONS AND ONE CARE (MEDICARE REPLACEMENT/AD VANTAGE - HMO) Dora Fernandez [id number] Dora Fernandez Notes Date Note Type Note Provider Name and Address Organization Details Recorded Time 01/03/2023 text/html HPI: Patient HX: Anemia,HTN, Obesity........... .................. .................. .................. .................. .................. .................. .................. .... CRC Nursing Assessment: Comments: CRC RN did not require any additional information to process this visit. .................. .................. .................. .................. .................. .................. .................. ............... Ski Binding Fitter And Repairer Note From Gabriella Agrawal: Community Ski Binding Fitter And Repairer Curt Agrawal [employer]1 dispatched [place] for a 52 yof in need of wound care/assessment. Upon arrival, the pt was ambulatory w/ a limp, BAILON X4, in no apparent distress. Her daughter/video intern translated for her (Ugandan speaking only). She stated that she noticed [...] assessed and bandaged the toe prior to [facility] arrival that day. Pictures in insted; the first of the initial injury, the second the day of [facility] visit. [facility] consulted; pt was given clear written instruction [...] was informed she could not get a plasterer stucco appointment until Monday. She has an appointment with wound care outpatient on 01/09 and an appointment with her PCP on 01/10/2023 Cinthya Bowers MD [address] [place] [address],[address], [place], [address], [employer] 01/04/2023 10:42:10 OBGyn Episode No OBEpisode recorded.
--- OUTSIDE RECORDS SUMMARY | 2024-06-24 16:49 | XMS_ITS | Patient Health Record ---
Author Organization [facility] Address [address] [facility] [place] [address] Care Team Providers Care Oracle Data Warehouse Developer Name Role Phone Garry Zuleta MD, Edwin Primary Care Provide r Unavailable Cristofer Hilario Unavailable [phone] Allergies No Known Allergies Results Component Value [...] OXcarbazepine 300 MG TAKE 1 TABLET BY [facility] TWICE DAILY IN THE MORNING AND IN [...] Gabapentin 300 MG TAKE 1 CAPSULE BY [facility] TWICE DAILY IN THE MORNING AND [...] Problem Acquired hammer toe of right foot (1878176565369532 ) Other hammer toe(s) (acquired), right foot (M20.41) Active confirmed Problem Acquired hammer toe of left foot (2812652444919333 ) Other hammer toe(s) (acquired), left foot (M20.42) Active confirmed Problem Polyneuropathy due to type 2 diabetes mellitus (520193966) Type 2 diabetes mellitus with diabetic polyneuropathy (E11.42) Active confirmed Vital Signs Height 5ft9.5in in 04/05/2024 Weight 351 lbs 04/05/2024 BMI 51.08 kg/m2 04/05/2024 Procedures Procedure Date Ordered Date Performed Result Body Sit e 52157-QALGCHK NAIL, 6 OR MORE 07/28/2023 N/A 14203-FVYP SKIN LESIONS, OVER 4 07/28/2023 N/A 58308-CZSBAQY NAIL, 6 OR MORE 10/06/2023 N/A 78927-RZMK SKIN LESIONS, OVER 4 10/06/2023 N/A 16499-JNGEHYL NAIL, 6 OR MORE 04/05/2024 N/A 42812-NAKM SKIN LESIONS, OVER 4 04/05/2024 N/A Encounters Encounter Location Date Provider Diagnosis [address] [address] 07/28/2023 Cristoferreyna Brooksier Type 2 diabetes mellitus with diabetic polyneuropathy E11.42 ; Tinea unguium B35.1 and Xerosis of skin L85.[address] [address] 10/06/2023 Cristoferreyna Hilario Type 2 diabetes mellitus with diabetic polyneuropathy E11.42 ; Tinea unguium B35.1 and Xerosis of skin L85.[address] [address] 04/05/2024 Cristofer Yanelis Type 2 diabetes mellitus with diabetic polyneuropathy E11.42 ; Tinea unguium B35.1 ; Other hammer toe(s) (acquired), right foot M20.41 and Other hammer toe(s) (acquired), left foot M20.42 [facility] [address] [address] 12/19/2023 Cristofer Hilario [facility] [address] [address] 04/05/2024 Cristofer Hilario [facility] Encounter Date Diagnosis (ICD Code) Assessment [...] X ray : Foot, right 3V 04/13/2022 18983-QZCRHCU NAIL, 6 OR MORE 08/29/2022 86239-JOWDQOJ NAIL, 6 OR MORE 03/02/2022 67072-LPRFKKN NAIL, 6 OR MORE 11/02/2022 95452-UMTGSAL NAIL, 6 OR MORE 02/23/2023 91700-JXYWEPW NAIL, 6 OR MORE 05/24/2021 86598-XWOOLVO NAIL, 6 OR MORE 08/02/2021 96276-ZGBEMZE NAIL, 6 OR MORE 10/11/2021 93212-FRGSLZV NAIL, 6 OR MORE 12/22/2021 54860-VTYOKQE NAIL, 6 OR MORE 11/18/2019 64427-KBFRYNJ NAIL, 6 OR MORE 02/03/2020 88591-IAVFQJE NAIL, 6 OR MORE 06/01/2020 17895-INRGNQR NAIL, 6 OR MORE 08/10/2020 83126-SPFUXDM NAIL, 6 OR MORE 10/19/2020 37964-ZGWCWCG NAIL, 6 OR MORE 12/28/2020 56825-PHXRONG NAIL, 6 OR MORE 03/15/2021 44177-VSCRFSF NAIL, 6 OR MORE 05/16/2023 32172-TGZBKMN NAIL, 6 OR MORE 07/28/2023 46330-YWBIWCO NAIL, 6 OR MORE 10/06/2023 81108-LNQTEJP NAIL, 6 OR MORE 04/05/2024 59048-GOQZYVX NAIL, 1-5 08/12/2019 20801- Debride <25 sq cm 06/01/2020 50243- Debride <25 sq cm 02/03/2020 29985- Debride <25 sq cm 04/13/2022 89986-VGDNMOW SKIN/TISSUE 05/16/2023 54252-MUDQ SKIN LESIONS, OVER 4 05/16/20 23 04766-XJYN SKIN LESIONS, OVER 4 07/28/19 24 83477-EHJW SKIN LESIONS, OVER 4 04/05/20 24 43638-ZXLM SKIN LESIONS, OVER 4 10/06/19 24 06150-FNOB SKIN LESIONS, OVER 4 02/03/20 20 22586-IOQW SKIN LESIONS, OVER 4 06/01/20 20 42090-QIDR SKIN LESIONS, OVER 4 11/18/19 20 16796-SFOK SKIN LESIONS, OVER 4 03/15/20 21 10385-ZRJT SKIN LESIONS, OVER 4 12/29/19 83821-CYJW SKIN LESIONS, OVER 4 10/20/19 21 70138-HFUS SKIN LESIONS, OVER 4 08/10/19 21 33876-GBQQ SKIN LESIONS, OVER 4 12/23/19 37039-AWDY SKIN LESIONS, OVER 4 10/12/19 24451-VOGR SKIN LESIONS, OVER 4 08/02/19 22 21905-DGQV SKIN LESIONS, OVER 4 05/24/20 21 47669-DXXK SKIN LESIONS, OVER 4 02/24/20 23 28957-CWZO SKIN LESIONS, OVER 4 11/03/19 23 31997-HVAC SKIN LESIONS, OVER 4 03/02/20 69116-SMAB SKIN LESIONS, OVER 4 08/30/19 23 65611-QGVO SKIN LESIONS, 2 TO 4 08/12/19 20 51132-Nccn. Subungual Hematoma 3 Next Appt Details Provider Name:Cristofer Hilario , 07/12/2024 12:30:00 PM, [address] [place] [address], [phone], Insurance Providers Payer Name Payer Address Payer Phone Subscriber Number Group Number Insured Name Patient Relationship to Insured Coverage Start Date Coverage End Date [facility] [address] [address] [place] [address] [id number] Dora Fernandez Self - patient is the [...]
--- OUTSIDE RECORDS SUMMARY | 2024-06-24 16:49 | XMS_ITS ---
Author Organization [facility] Address [address] [place] [address] Care Team Providers Care Aids Nurse Name Role Phone Garry Zuleta MD, Edwin Primary Care Provide r Cristofer Owusu Unavailable [phone] Encounters Encounter Location Date Provider Diagnosis [address] [address] 12/19/2023 Cristofer Hilario Plan Of Treatment Next Appt Details Provider Name:Cristofer Hilario , 07/12/2024 12:30:00 PM, [address] [place] [address], [phone], Progress Notes * Dora FERNANDEZDOB:[birth year] (54 yo F)Acc No.[id number]:12/19/2023 Progress Note Patient:?Dora FERNANDEZ Provider:?Cristofer Hilario DPM :1970???Age:53 Y???Sex:Female D ate:12/19/2023 Address:[address] [place] [address] [place], [place]ABE-[id number] Pcp:Edwin Zuleta MD Subjective: * Chief Complaints: [...] Hilario DPM Date:?2023 Generated for Joseph oakley/Luis/Autumn on:?06/24/2024 04:49 PM EST
--- OUTSIDE RECORDS SUMMARY | 2024-06-24 16:49 | XMS_ITS ---
Author Organization [facility] [place] Address [address] [facility] [place] [address] Care Team Providers Care Spider Assembler Name Role Phone Garry Zuleta MD, [facility] Primary Care Provide r Unavailable Cristofer Hilario Unavailable [phone] Allergies No Known Allergies REASON FOR VISIT At Risk Footcare, Toe Irritation Medications Medication SIG (Take, Route, Frequency, Duration) Notes Start Date End Date Status traZODone HCl 50 MG 1 tablet at bedtime as needed Orally Once a day for 30 day(s) Not-Taking Gabapentin 300 MG TAKE 1 CAPSULE BY [facility] TWICE DAILY IN THE MORNING AND AT [...] OXcarbazepine 300 MG TAKE 1 TABLET BY ME [facility] TWICE DAILY IN THE MORNING AND [...] Ordered Date Performed Result Body Sit e 01730-NGNLVCI NAIL, 6 OR MORE 04/05/2024 N/A 26290-NSMT SKIN LESIONS, OVER 4 04/05/2024 N/A Encounters Encounter Location Date Provider Diagnosis [facility] [place] [address] [place] [address] 04/05/2024 Cristofer Hilario Type 2 diabetes mellitus [...] INSTRUCTIONS.pdf) Pending Test Test Name Order Date 43001-YWHQERI NAIL, 6 OR MORE 04/05/2024 56638-LMAK SKIN LESIONS, OVER 4 04/05/20 24 Next Appt Details Follow Up: prn, Reason: Provider Name:Cristofer Hilario , 07/12/2024 12:30:00 PM, [address] [place] [address], [phone], Procedure Notes * Category Sub-Category Detail [...] use of a nail nipper and/or dremel-type meal grinder tender, to a more viable healthy nail plate or bed tissue 6-10. Silver nitrate used for any petechial bleeding as necessary. Definitive antifungal treatment options have been reviewed and discussed with the patient. The patient chooses, no pharmaceutical tx - 96525 Keratoma Treatment Parring or Cutting o f Benign Hyperkeratotic Lesion(s) (-57) More than 4 Lesions - The Benign hyperkeratotic lesions, as described above were pared, and/or cut utilizing a sterile 15 blade, tissue nippers, and/or dremel - 01242 Progress Notes * Dora FERNANDEZDOB:[birth year] (54 yo F)Acc No.[id number]:04/05/2024 Progress Note Patient:?Dora Fernandez Provider:?Cristofer Hilario DPM :1970???Age:54 Y???Sex:Female D ate:04/05/2024 Address:[address] [place], [place] [phone] Pcp:Edwin Zuleta MD Subjective: * Chief Complaints: [...] , Daughter , who serves as , Ob/Gyn Nurse/Custom Feed Mill Operator , additional Historian , and/who is physically [...] use of a nail nipper and/or dremel-type meal grinder tender, to a more viable healthy nail plate or bed tissue 6-10. Silver nitrate used for any petechial bleeding as necessary. Definitive antifungal treatment options have been reviewed and discussed with the patient. The patient chooses, no pharmaceutical tx - 19172.?Keratoma Treatment:?Parring or Cutting of Benign Hyperkeratotic Lesion(s)?(-57) More than 4 Lesions - The Benign hyperkeratotic lesions, as described above were pared, and/or cut utilizing a sterile 15 blade, tissue nippers, and/or dremel - 21330.? * Procedure Codes:?08541 DEBRI DE NAIL, 6 OR MORE, Modifiers: XS 73140 TRIM SKIN LESIONS, OVER 4, Modifiers: XS [...] for Joseph oakley/Luis/Autumn on:?06/24/2024 04:49 PM EST History and Physical Notes * HPI [...] , Daughter , who serves as , Ob/Gyn Nurse/Custom Feed Mill Operator , additional Historian , and/who is physically [...]
[2024-06-24 18:18] VITALS: BP 101/53; PULSE 73; RESP 16; TEMP 36.6; O2SAT 98
[2024-06-24] MEDS: Piperacillin Sodium/Tazobactam 3.375 GM in 0.9 % Sodium Chloride 50 ML IV (18:32)
[2024-06-24] MEDS: 0.9 % Sodium Chloride 1,000 ML 999 ML IVCONT (18:32)
[2024-06-24] MEDS: Insulin Regular, Human 100 UNIT/ML 10 ML VIAL 10 UNIT IVPUSH (18:32)
[2024-06-24] MEDS: vancomycin/NS 2,000 MG/500 ML PLAST..BAG 250 MG IV (19:07)
--- NOTE | 2024-06-24 19:34 | P.HPHOSP_ITS ---
History of Present Illness Date of Service: 06/24/24 Attending physician on admission: Brian Palacio Chief Complaint: Right foot wound Dora Fernandez is a 54 years old woman with past medical history significant for type 2 diabetes mellitus on insulin, hyperlipidemia, hypertension and CKD presents to the emergency department complaining of right foot wound. The wound has developed purulent discharge since yesterday. She has associated pain. Denies fever or chills. She denied any acute cardiopulmonary, gastrointestinal or genitourinary symptoms. She has history of 3rd toe amputation and nonhealing ulcer to the right 4th toe followed by surgery as an outpatient. In the ED, she was found to have stable vital signs. Blood workup showed no leukocytosis. There is no lactic acidosis. CRP is elevated at 9.07. Hemoglobin and platelets are normal. Blood glucose 460. Creatinine is 1.55 and BUN 20 bolus around baseline. Right foot x-ray showed soft tissue swelling over the 5th MTP joint without obvious evidence of osteomyelitis. ED Tx: Zosyn 3.375 g, NS 1 L bolus, insulin R 10 units IV, vancomycin 2 g Review of Systems 2 Review of Systems: All 12 systems were reviewed and normal except as noted in HPI. [facility] Medical History Toe ulcer due to DM Arm swelling Restrictive lung disease Dyspnea on exertion Morbid obesity Gallstones Obesity due to excess calories Chronic kidney disease, stage 3 Charcot foot due to diabetes mellitus Depression Vitamin D deficiency Hyperlipidemia LDL goal <100 Hypertension Diabetic polyneuropathy Type 2 diabetes mellitus with chronic kidney disease Family History Father Type 2 diabetes mellitus Mother Type 2 diabetes mellitus Diverticulitis Hypertension Surgical History Hx of colonoscopy History of partial ray amputation of third toe of right foot Hx of wisdom tooth extraction History of partial amputation of toe (2018) History of total hysterectomy with bilateral salpingo-oophorectomy (BSO) Social History Household Members: Family Household Members Other:: , mother Housing: Apartment Are you a primary managed care analyst to a significant other at home: No Do you presently have visiting nurse or other home services: Yes ([employer] CALL[employer]) Alcohol intake: former Patient Tobacco Use Status: Never used Tobacco Smoked in Last 30 Days: No Use of substances other than those prescribed or required for medical reasons: No Advance Directives: No Advance Directives Information Provided: Yes service: No Meds Allergies Allergy/AdvReac Type Severity Reaction Status Date / Time No Known Allergies Allergy Unknown Verified 06/24/24 14:39 Active Medications: Current Medications Acetaminophen (Acetaminophen 325 Mg Tablet) 975 mg PO Q6H PRN PRN Reason: Pain, Mild 1-3,fever,headache Glucose (Glucose Gel 15 Gm Gel..Gram.) 15 gm PO Q15M PRN; Protocol PRN Reason: per Hypoglycemia Standing Ord. Heparin Sodium (Porcine) (Heparin Sodium,Porcine 5,000 Unit/Ml Vial) 5,000 unit SUBCUT Q12H JUDY Vancomycin HCl (Vancomycin/Ns) 2,000 mg in 500 mls @ 250 mls/hr IV ONCE ONE Stop: 06/24/24 19:57 Last Admin: 06/24/24 19:07 Dose: 250 mls/hr Dextrose (D10) 250 mls @ 750 mls/hr IV Q15M PRN; Protocol PRN Reason: per Hypoglycemia Standing Ord. Insulin Glargine (Insulin Glargine,Hum.Rec.Anlog 100 Unit/Ml 10 Ml Vial) 25 unit SUBCUT BEDTIME [facility] Insulin Human Lispro (Insulin Lispro 100 Unit/Ml 3 Ml Vial) 0 unit SUBCUT QIDACHS [facility]; Protocol Magnesium Hydroxide (Milk Of Magnesia 30 Ml Oral.Susp) 30 ml PO DAILY PRN PRN Reason: Constipation Melatonin (Melatonin 3 Mg Tablet) 6 mg PO BEDTIME PRN PRN Reason: Insomnia Sodium Chloride (0.9 % Sodium Chloride Flush 3 Ml Syringe) 3 ml IVFLUSH QSHIFT [facility] Home Medications ?Medication ?Instructions ?Recorded ?Confirmed ?Last Taken ?Type bupropion HCl 300 mg 24 hr tablet, 300 mg PO QAM 03/20/20 01/31/24 12/27/22 History extended release escitalopram oxalate 10 mg tablet 10 mg PO DAILY 03/20/20 01/31/24 12/27/22 History gabapentin 300 mg capsule 300 mg PO BID 03/20/20 01/31/24 12/27/22 History lisinopril 10 mg tablet 10 mg PO DAILY 03/20/20 01/31/24 12/27/22 History omeprazole 20 mg capsule,delayed 20 mg PO DAILY 03/20/20 01/31/24 12/27/22 History release oxcarbazepine 300 mg tablet 300 mg PO BID 03/20/20 01/31/24 12/27/22 History aspirin 81 mg tablet,delayed 81 mg PO DAILY 12/28/22 01/31/24 12/27/22 History release insulin glargine U-300 conc 300 36 unit subcut BEDTIME 12/28/22 01/31/24 12/26/22 History unit/mL (1.5 mL) subcutaneous pen (Toujeo SoloStar U-300 Insulin) insulin aspart U-100 100 unit/mL 12 - unit subcut TID 05/16/23 01/31/24 Unknown History (3 mL) subcutaneous pen (Novolog FlexPen U-100 Insulin aspart) eszopiclone 3 mg tablet 3 mg PO BEDTIME PRN 06/14/24 Unknown History lancets 33 gauge (TRUEplus Lancets) #100 ea 06/14/24 Unknown History metoprolol succinate 25 mg 25 mg PO DAILY 06/14/24 Unknown History tablet,extended release 24 hr pen needle, diabetic 32 gauge x #1,200 ea 06/14/24 Unknown History (Pentips Pen Needle) semaglutide 0.25 mg or 0.5 mg (2 mg subcut 06/14/24 Unknown History mg/3 mL) subcutaneous pen injector (Ozempic) Physical Exam 2 Vital Signs and Narrative: Vital Signs: Last Vital Signs Temp 97.9 F 06/24/24 18:18 Pulse 73 06/24/24 18:18 Resp 16 06/24/24 18:18 BP 101/53 L 06/24/24 18:18 Pulse Ox 98 06/24/24 18:18 O2 Del Method Room Air 06/24/24 18:18 BMI result Body Mass Index 50.2 Constitutional - Awake and Alert, No apparent distress. Pleasant. Cooperative. Afebrile. HEENT - PERRL, EOMI. Cardiovascular - S1S2, RRR, No murmurs Lungs - Normal lung expansion, Normal respiratory effort, No respiratory distress, CTA bilaterally Abdomen - NT / ND; +BS; No rebound or guarding Extremities - distal pulses present. Musculoskeletal - Normal inspection, normal ROM Skin - Warm/Dry Neurological - Alert & oriented x3. No focal weakness grossly noted. Psychological - Appropriate affect Results Labs 06/24/24 14:53 06/24/24 14:53 Labs: Laboratory Results - last 24 hr 06/24/24 06/24/24 14:53 15:42 MCV 86.6 MCH 27.8 MCHC 32.1 RDW 11.8 Plt Count 242 MPV 12.2 Immature Gran % (Auto) 0.2 Neut % (Auto) 59.0 Lymph % (Auto) 28.2 Callahan % (Auto) 7.4 Eos % (Auto) 4.1 H Baso % (Auto) 1.1 Lymph # (Auto) 1.9 Callahan # (Auto) 0.5 Eos # (Auto) 0.3 Baso # (Auto) 0.1 Abs Immat Gran (auto) 0.01 Absolute Neuts (auto) 3.9 Absolute Nucleated RBC 0.000 Nucleated RBC % (auto) 0.0 Smear Tech's Comments VERIFIED ESR 30 H Anion Gap 12 Estim Creat Clear Calc 64.9 Estimated GFR 35 Random Glucose 460 H* Lactic Acid 1.9 Calcium 9.6 Total Bilirubin 0.5 AST 23 ALT 20 Alkaline Phosphatase 113 C-Reactive Protein 9.07 H Total Protein 8.2 H Albumin 4.0 Imaging Radiologist's Impressions: Impressions Foot X-Ray 06/24/24 14:37 IMPRESSION: 1. Soft tissue swelling over the 5th MTP joint. No plain film evidence of osteomyelitis. If this remains a clinical concern, three-phase bone scan or MRI could be performed. 2. Severe osteoarthritis of the intertarsal and tarsometatarsal joints. Electronically signed by: Baudilio Kirkland MD 06/24/2024 03:47 PM [facility] [place] and Plan (1) Unspecified open wound, right foot, initial encounter: Status: Acute (2) Chronic kidney disease, stage 3: Qualifiers: Chronic kidney disease stage 3 subtype: stage 3b (GFR 30-44) Qualified Code(s): N18.32 - Chronic kidney disease, stage 3b Status: Acute (3) Hyperlipidemia LDL goal <100: Status: Acute Plan Dora Fernandez is a 54 y/o woman admitted with: * Right foot infected wound. Rule out osteomyelitis and/or abscesses. Admit to hospitalist service. Continue empiric IV antibiotic therapy with Zosyn and vancomycin. Right foot MRI with and without contrast. Surgery consult. * Type 2 diabetes mellitus, uncontrolled. Continue Lantus and insulin sliding scale. Diabetic diet. Check Hbg A1c. * Hyperlipidemia. Continue statin. * Essential hypertension. Continue home anti-HTN meds. * CKD stage 3B. Renal function at baseline. Avoid nephrotoxic agents. DVT prophylaxis: Heparin Code status: Full Patient will need hospitalization for at least 2 midnights for right foot infected wound treatment with IV antibiotics, further investigation with MRI and evaluation by Surgical Service. Quality Stroke Does the patient have a stroke diagnosis?: No VTE Prior VTE?: No VTE Risk Level:: Medical - moderate - high VTE Device Contraindication: Treatment Not Indicated VTE Drug Contraindication: N/A - Med Ordered
[2024-06-24 19:56] VITALS: BP 111/53; PULSE 68; RESP 16; TEMP 36.6; O2SAT 100
--- NOTE | 2024-06-24 20:01 | PHA.PROG ---
Admission Date/Time: June 24, 2024 19:29 Indication: Skin Weight in k.221 kg Serum Creatinine - Last 168 Hours 06/24/24 14:53 Creatinine 1.55 H Estimated CrCl and GFR - Last 168 Hours 06/24/24 14:53 Estim Creat Clear Calc 64.9 Estimated GFR 35 Vancomycin Loading Dose: 2,000mg Current Vancomycin Dosing Regimen: 1,000mg q24h Vancomycin Monitoring using AUC goal of 400 - 600 range with trough as surrogate marker: 472, predicted trough 14.3 Date and Time for next Vancomycin Level to be drawn: 06/27/2406/27 @ 1700 Pharmacist Comments on Vancomycin Plan: Vancomycin dosing will take advantage of [employer] as a clinical decision support tool that uses Bayesian modeling to calculate individual patient's pharmacokinetic parameters and forecast the patient's drug concentration time course with the target goal AUC 24 range of 400 - 600 mg/L/hr.
[2024-06-24 20:03] LABS: Glucose, Whole Blood 285 mg/dL (60-115)
[2024-06-24] MEDS: Insulin Lispro 100 UNIT/ML 3 ML VIAL SUBCUT (20:05)
--- NOTE | 2024-06-24 21:05 | PHA.MEDREC ---
Addendum entered by Debbi Vinson RPh 06/24/24 21:46: reviewed by [facility]. Original Note: Pharmacy Consult ? Medication Reconciliation Pharmacy has completed the medication reconciliation. Confirmed patients medications with patients daughter at bedside. She confirmed her moms medications and states she is still filling all her medications at [facility] via a Med Box and states she was due to get it this Monday but they don't know how long her mom is in the hospital for. The daughter was able to confirm the Novolog Flexpen and confirmed she does it per a sliding scale three times a day before meals. She also confirmed her moms Ozempic 0.5mg and confirmed she takes it on Mondays and took it today 06/24. She confirmed her moms Toujeo and confirmed she is taking 40 units at bedtime of that. She confirmed she took all her medications this morning.
[2024-06-24 21:48] LABS: Glucose, Whole Blood 258 mg/dL (60-115)
[2024-06-24] MEDS: Gabapentin 300 MG CAPSULE PO (22:32)
[2024-06-24] MEDS: OXcarbazepine 300 MG TABLET PO (22:32)
[2024-06-24] MEDS: Insulin Glargine,Hum.rec.anlog 100 UNIT/ML 10 ML VIAL 25 UNIT SUBCUT (22:32)
[2024-06-24] MEDS: bisacodyL 5 MG TABLET.DR 10 MG PO (22:32)
[2024-06-24] MEDS: Atorvastatin Calcium 40 MG TABLET PO (22:32)
[2024-06-24 22:45] VITALS: BP 127/55; PULSE 73; RESP 16; TEMP 36.7; O2SAT 98
[2024-06-24 23:07] VITALS: BP 135/56; PULSE 74; RESP 20; TEMP 36.8; O2SAT 95
[2024-06-25] VITALS (8 sets, daily range): BP systolic 107–141; BP diastolic 53–68; PULSE 66–84; RESP 14–20; TEMP 36.4–36.8; O2SAT 94–97; BMI 50.9
[2024-06-25] MEDS: 0.9 % Sodium Chloride Flush 3 ML SYRINGE IVFLUSH ×3 (01:34→18:22)
[2024-06-25] MEDS: Piperacillin Sodium/Tazobactam 3.375 GM in 0.9 % Sodium Chloride 50 ML IV ×4 (01:39→19:43)
[2024-06-25 04:55] LABS: MANUAL DIFF FLAG NO
[2024-06-25 04:56] LABS: Basophils Absolute Auto 0.1 X10*3/uL (0.0-0.2); Basophils Percent Auto 0.9 % (0-2); Eosinophils Absolute Auto 0.5 X10*3/uL (0.0-0.4); Eosinophils Percent Auto 6.4 % (0-4); Hematocrit 36.3 % (37.0-47.0); Hemoglobin 11.9 g/dl (12.0-16.0); Imm Gran Abs Auto 0.02 X10*3/uL (0.00-0.03); Imm Gran Pct Auto 0.3 % (0.0-0.4); Lymphocytes Absolute Auto 1.9 X10*3/uL (1.2-4.9); Lymphocytes Percent Auto 26.5 % (20-40); Mean Corpuscular HGB Conc 32.8 g/dl (31.0-35.0); Mean Corpuscular Hemoglobin 27.7 pg (27.0-33.0); Mean Corpuscular Volume 84.6 fL (80.0-98.0); Mean Platelet Volume 11.5 fL (9.4-12.3); Monocytes Absolute Auto 0.9 X10*3/uL (0.1-1.2); Monocytes Percent Auto 12.6 % (2-11); Neutrophils Absolute Auto 3.7 x10*3/uL (2.0-8.3); Neutrophils Percent Auto 53.3 % (45-73); Platelet Count 223 X10*3/uL (160-400); Red Blood Count 4.29 X10*6/uL (4.20-5.50); Red Cell Distribution Width 11.7 % (11.0-16.0)
[2024-06-25 05:15] LABS: Anion Gap 11 (12-20); Blood Urea Nitrogen 14 mg/dL (9-16); Calcium 8.9 mg/dL (8.4-10.2); Carbon Dioxide 26 mmol/L (22-29); Chloride 103 mmol/L (96-108); Creatinine Clr Calc Pharmacy 89.8; Estimated Glomerular Filt Rate 50; Glucose Random 251 mg/dL (60-115); Potassium 4.1 mmol/L (3.3-5.1); Sodium 136 mmol/L (135-145)
--- NOTE | 2024-06-25 06:03 | MHC.EDTECH ---
Patient insisted in staying in personal attire, did not want to change into hospital clothes
[2024-06-25] MEDS: Omeprazole 20 MG CAPSULE.DR PO (06:22)
[2024-06-25 07:18] LABS: Estimated Average Glucose 280 mg/dL; Hemoglobin A1c % 11.4 % (<6.0); Total Hemoglobin (HGBA1C) 2926.5844 umol/L
[2024-06-25 07:20] LABS: Glucose, Whole Blood 257 mg/dL (60-115)
--- NOTE | 2024-06-25 07:34 | PM.CNGS ---
History of Present Illness Consult details Consult date: 06/25/24 Narrative: 50-year-old male with known diabetes, morbidly obese, with an open would and drainage on the right foot laterally. She says that she noticed this about 2 days prior to admission. She describes some pain as well She admits to poor control of her blood sugars She has a history of amputation of the 3rd toe and partial amputation of the 2nd toe on the same foot. She had a chronic ulcer on the 4th toe as well in the past but this had healed. Review of Systems Constitutional: Constitutional: Denies chills and Denies fever(s) Cardiovascular: Cardiovascular: Denies chest pain, Denies dyspnea and Denies dyspnea on exertion Respiratory: Respiratory: Denies cough, Denies dyspnea and Denies dyspnea on exertion Gastrointestinal: Gastrointestinal: Denies hematochezia and Denies change in bowel habits Genitourinary: Genitourinary: Denies hematuria Musculoskeletal: Musculoskeletal: Denies back pain and Denies limited range of motion Neurologic: Denies focal weakness and Denies convulsions Psychiatric: Psychiatric: Denies depression and Denies mood swings [facility] Past Medical History Medical History (Updated 06/25/24 @ 07:34 by Dylan Lim MD) Wound of foot Toe ulcer due to DM Arm swelling Restrictive lung disease Dyspnea on exertion Morbid obesity Gallstones Obesity due to excess calories Chronic kidney disease, stage 3 Charcot foot due to diabetes mellitus Depression Vitamin D deficiency Hyperlipidemia LDL goal <100 Hypertension Diabetic polyneuropathy Type 2 diabetes mellitus with chronic kidney disease Family History Family History Father Type 2 diabetes mellitus Mother Type 2 diabetes mellitus Diverticulitis Hypertension Surgical History Surgical History Hx of colonoscopy History of partial ray amputation of third toe of right foot Hx of wisdom tooth extraction History of partial amputation of toe (2018) History of total hysterectomy with bilateral salpingo-oophorectomy (BSO) Social History Social History Household Members: Family Household Members Other:: , mother Housing: House Are you a primary acute care nurse to a significant other at home: No Do you presently have visiting nurse or other home services: No Alcohol intake: former Patient Tobacco Use Status: Never used Tobacco service: No Meds Allergies Allergy/AdvReac Type Severity Reaction Status Date / Time No Known Allergies Allergy Unknown Verified 06/24/24 14:39 Active Medications: Current Medications Acetaminophen (Acetaminophen 325 Mg Tablet) 975 mg PO Q6H PRN PRN Reason: Pain, Mild 1-3,fever,headache Aspirin (Aspirin Enteric Coated 81 Mg Tablet.) 81 mg PO DAILY [facility] Atorvastatin Calcium (Atorvastatin Calcium 40 Mg Tablet) 40 mg PO BEDTIME [facility] Last Admin: 06/24/24 22:32 Dose: 40 mg Bisacodyl (Bisacodyl 5 Mg Tablet.) 10 mg PO BEDTIME [facility] Last Admin: 06/24/24 22:32 Dose: 10 mg Celecoxib (Celecoxib 200 Mg Capsule) 200 mg PO BID [facility] Escitalopram Oxalate (Escitalopram Oxalate 10 Mg Tablet) 10 mg PO DAILY [facility] Gabapentin (Gabapentin 300 Mg Capsule) 300 mg PO BID [facility] Last Admin: 06/24/24 22:32 Dose: 300 mg Glucose (Glucose Gel 15 Gm Gel..Gram.) 15 gm PO Q15M PRN; Protocol PRN Reason: per Hypoglycemia Standing Ord. Heparin Sodium (Porcine) (Heparin Sodium,Porcine 5,000 Unit/Ml Vial) 5,000 unit SUBCUT Q12H [facility] Dextrose (D10) 250 mls @ 750 mls/hr IV Q15M PRN; Protocol PRN Reason: per Hypoglycemia Standing Ord. Vancomycin HCl 1,000 mg/ (Sodium Chloride) 270 mls @ 270 mls/hr IV Q24H [facility] Piperacillin Sod/Tazobactam (Sod 3.375 gm/ Sodium Chloride) 50 mls @ 100 mls/hr IV Q6H [facility] Insulin Glargine (Insulin Glargine,Hum.Rec.Anlog 100 Unit/Ml 10 Ml Vial) 25 unit SUBCUT BEDTIME [facility] Last Admin: 06/24/24 22:32 Dose: 25 unit Insulin Human Lispro (Insulin Lispro 100 Unit/Ml 3 Ml Vial) 0 unit SUBCUT QIDACHS [facility]; Protocol Last Admin: 06/24/24 20:05 Dose: 8 unit Lisinopril (Lisinopril 10 Mg Tablet) 10 mg PO DAILY [facility]; Protocol Magnesium Hydroxide (Milk Of Magnesia 30 Ml Oral.Susp) 30 ml PO DAILY PRN PRN Reason: Constipation Melatonin (Melatonin 3 Mg Tablet) 6 mg PO BEDTIME PRN PRN Reason: Insomnia Metoprolol Succinate (Metoprolol Succinate Er 25 Mg Tab.Er.24h) 25 mg PO DAILY [facility]; Protocol Omeprazole (Omeprazole 20 Mg Capsule.Dr) 20 mg PO DAILY@06 [facility] Last Admin: 06/25/24 06:22 Dose: 20 mg Oxcarbazepine (Oxcarbazepine 300 Mg Tablet) 300 mg PO BID [facility] Last Admin: 06/24/24 22:32 Dose: 300 mg Pharmacy Consult (Consult Rx Vancomycin Dosing) 1 each MISCELLANE DAILY PRN PRN Reason: Consult order Sodium Chloride (0.9 % Sodium Chloride Flush 3 Ml Syringe) 3 ml IVFLUSH QSHIFT [facility] Last Admin: 06/25/24 01:34 Dose: 3 ml Vitamin D (Cholecalciferol (Vitamin D3) 25 Mcg Tablet) 50 mcg PO DAILY [facility] Home Medications ?Medication ?Instructions ?Recorded ?Confirmed ?Last Taken ?Type bupropion HCl 300 mg 24 hr tablet, 300 mg PO DAILY 03/20/20 06/24/24 06/24/24 History extended release escitalopram oxalate 10 mg tablet 10 mg PO DAILY 03/20/20 06/24/24 06/24/24 History gabapentin 300 mg capsule 300 mg PO BID 03/20/20 06/24/24 06/24/24 History lisinopril 10 mg tablet 10 mg PO DAILY 03/20/20 06/24/24 06/24/24 History omeprazole 20 mg capsule,delayed 20 mg PO DAILY@0630 03/20/20 06/24/24 06/24/24 History release oxcarbazepine 300 mg tablet 300 mg PO BID 03/20/20 06/24/24 06/24/24 History aspirin 81 mg tablet,delayed 81 mg PO DAILY 12/28/22 06/24/24 06/24/24 History release insulin glargine U-300 conc 300 40 unit subcut BEDTIME 12/28/22 06/24/24 06/23/24 History unit/mL (1.5 mL) subcutaneous pen (Toujeo SoloStar U-300 Insulin) insulin aspart U-100 100 unit/mL See Protocol subcut TIDAC 05/16/23 06/24/24 06/24/24 History (3 mL) subcutaneous pen (Novolog FlexPen U-100 Insulin aspart) eszopiclone 3 mg tablet 3 mg PO BEDTIME PRN Sleep 06/14/24 06/24/24 Unknown History lancets 33 gauge (TRUEplus Lancets) #100 ea 06/14/24 Unknown History metoprolol succinate 25 mg 25 mg PO DAILY 06/14/24 06/24/24 06/24/24 History tablet,extended release 24 hr pen needle, diabetic 32 gauge x #1,200 ea 06/14/24 Unknown History (Pentips Pen Needle) semaglutide 0.25 mg or 0.5 mg (2 0.5 mg subcut [place] 06/14/24 06/24/24 06/24/24 History mg/3 mL) subcutaneous pen injector (Ozempic) Physical Exam Vital Signs: Vital Signs: Last Vital Signs Temp 97.9 F 06/25/24 06:01 Pulse 76 06/25/24 06:01 Resp 16 06/25/24 06:01 BP 132/68 06/25/24 06:01 Pulse Ox 94 06/25/24 06:01 O2 Del Method Room Air 06/25/24 02:33 BMI result Body Mass Index 50.2 Const: Other: Morbidly obese General: comfortable and no acute distress Orientation/consciousness: patient oriented x3 Neck: Neck: Yes no lymphadenopathy Resp: Auscultation: clear to auscultation bilaterally Cardio: Rhythm: regular rhythm GI: Palpation (GI): Soft to palpation, nontender and no guarding Neuro: General: patient oriented x3 Extrem: Other: Sinus on the lateral aspect of the right foot near the MTP joint, with some swelling, discharge Results Labs 06/25/24 04:50 06/26/24 07:14 Labs: Abnormal lab results 06/24/24 06/24/24 06/24/24 Range/Units 14:53 15:42 19:59 Hgb (12.0-16.0) g/dl Hct (37.0-47.0) % [place] % (Auto) (2-11) % Eos % (Auto) 4.1 H (0-4) % Eos # (Auto) (0.0-0.4) X10*3/uL ESR 30 H (0-20) MM/HR Sodium 132 L (135-145) mmol/L Anion Gap (12-20) BUN 20 H (9-16) mg/dL Creatinine 1.55 H (0.5-1.4) mg/dL POC Glucose 285 H (60-115) mg/dL Random Glucose 460 H* (60-115) mg/dL Hemoglobin A1c % (<6.0) % C-Reactive Protein 9.07 H (< or = 0.50) mg/dL Total Protein 8.2 H (6.5-8.0) g/dL 06/24/24 06/25/24 06/25/24 Range/Units 21:44 04:50 07:09 Hgb 11.9 L (12.0-16.0) g/dl Hct 36.3 L (37.0-47.0) % [place] % (Auto) 12.6 H (2-11) % Eos % (Auto) 6.4 H (0-4) % Eos # (Auto) 0.5 H (0.0-0.4) X10*3/uL ESR (0-20) MM/HR Sodium (135-145) mmol/L Anion Gap 11 L (12-20) BUN (9-16) mg/dL Creatinine (0.5-1.4) mg/dL POC Glucose 258 H 257 H (60-115) mg/dL Random Glucose 251 H (60-115) mg/dL Hemoglobin A1c % 11.4 H (<6.0) % C-Reactive Protein (< or = 0.50) mg/dL Total Protein (6.5-8.0) g/dL Short CBC 06/24/24 06/25/24 Range/Units 14:53 04:50 WBC 7.6 7.0 (4.8-10.8) X10*3/uL Hgb 12.8 11.9 L (12.0-16.0) g/dl Hct 39.9 36.3 L (37.0-47.0) % Plt Count 242 223 (160-400) X10*3/uL BMP 06/24/24 06/25/24 14:53 04:50 Sodium 132 L 136 Potassium 4.2 4.1 Chloride 97 103 Carbon Dioxide 27 26 BUN 20 H 14 Creatinine 1.55 H 1.12 Calcium 9.6 8.9 D Liver Function 06/24/24 Range/Units 14:53 Total Bilirubin 0.5 (0.0-1.0) mg/dL AST 23 (5-31) U/L ALT 20 (0-31) U/L Alkaline Phosphatase 113 (39-117) U/L Albumin 4.0 (3.5-5.0) g/dL All other labs normal. Assessment and Plan (1) Wound of foot: Status: Acute She has had this drainage from a small open sinus on the right foot laterally at the 5th MTP joint. There was note of some surrounding edema and drainage. Her plain films do not suggest osteomyelitis. I agree with going ahead with an MRI to rule out osteomyelitis as she is at risk for this She admits to poor control of her blood sugars She has been started on empiric antibiotics We will follow along while she is in the hospital. Procedures Date of Service Date of Service: 06/26/24
[2024-06-25] MEDS: Insulin Lispro 100 UNIT/ML 3 ML VIAL SUBCUT ×4 (07:44→21:50)
--- NOTE | 2024-06-25 07:45 | PC.NURSE ---
pt is alert and oriented, skin appropriate for ethnicity , respirations even and unlabored, right foot swollen/with a open wound to the outside of the foot very minim draining of clear liquids at this time, pt denies pain
--- NOTE | 2024-06-25 08:55 | PC.NURSE ---
mri screening for done and faxed over
[2024-06-25] MEDS: Heparin Sodium,Porcine 5,000 UNIT/ML VIAL 5000 UNIT SUBCUT ×2 (09:18→21:49)
[2024-06-25] MEDS: OXcarbazepine 300 MG TABLET PO ×2 (09:19→21:48)
[2024-06-25] MEDS: Gabapentin 300 MG CAPSULE PO ×2 (09:19→21:48)
[2024-06-25] MEDS: Escitalopram Oxalate 10 MG TABLET PO (09:19)
[2024-06-25] MEDS: Aspirin Enteric Coated 81 MG TABLET.DR PO (09:19)
[2024-06-25] MEDS: lisinopriL 10 MG TABLET PO (09:19)
[2024-06-25] MEDS: Metoprolol Succinate ER 25 MG TAB.ER.24H PO (09:19)
[2024-06-25] MEDS: Cholecalciferol (Vitamin D3) 25 MCG TABLET 50 MCG PO (09:19)
[2024-06-25] MEDS: Celecoxib 200 MG CAPSULE PO ×2 (09:51→21:48)
--- NOTE | 2024-06-25 10:51 | MHC.CM.PN ---
Pt lives with her family, PCP confirmed: Dr. Benitez. HCP discussed, pt declined to complete form at this time. She is independent, no home health services, for DME she has a nebulizer. Family to transport home at [place]. DCP: home, self care
[2024-06-25] MEDS: gadobutroL 10 ML VIAL IVPUSH (11:12)
[2024-06-25 13:12] LABS: Glucose, Whole Blood 301 mg/dL (60-115)
--- NOTE | 2024-06-25 14:11 | MHC.CM.PN ---
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 Her [employer] can transport her home at [place]. PCP is confirmed: Dr. Benitez. HCP is on file and confirmed: [facility]. DCP: home, resume [employer] services. CM to follow for DC needs.
--- NOTE | 2024-06-25 18:10 | P.PNIM_ITS ---
Progress Note: A&P (1) Wound of foot: Status: Acute Plan 54 y/o woman admitted with: Right foot infected wound. Rule out osteomyelitis and/or abscesses. Continue empiric IV antibiotic therapy with Zosyn and vancomycin. Right foot MRI with and without contrast. Surgery consult. Type 2 diabetes mellitus, uncontrolled. Continue Lantus and insulin sliding scale. Diabetic diet. Check Hbg A1c. Hyperlipidemia. Continue statin. Essential hypertension. Continue home anti-HTN meds. CKD stage 3B. Renal function at baseline. Avoid nephrotoxic agent. Subjective Subjective Date of Service: 06/26/24 Interval History: right foot wound Review of Systems wound area seems similar has some pain no fevers Physical Exam 2 Vital Signs: Vital Signs: Last Vital Signs Temp 98.3 F 06/25/24 16:28 Pulse 67 06/25/24 16:28 Resp 14 06/25/24 16:28 BP 107/55 L 06/25/24 16:28 Pulse Ox 95 06/25/24 16:28 O2 Del Method Room Air 06/25/24 16:28 BMI result Body Mass Index 50.2 Constitutional - Awake and Alert, No apparent distress. Pleasant. Cooperative. Afebrile. HEENT - PERRL, EOMI. Cardiovascular - S1S2, RRR Lungs - CTA bilaterally Abdomen - NT / ND; +BS; No rebound or guarding Extremities - distal pulses present. Objective Data Current Medications Acetaminophen (Acetaminophen 325 Mg Tablet) 975 mg PO Q6H PRN PRN Reason: Pain, Mild 1-3,fever,headache Aspirin (Aspirin Enteric Coated 81 Mg Tablet.) 81 mg PO DAILY [facility] Last Admin: 06/25/24 09:19 Dose: 81 mg Atorvastatin Calcium (Atorvastatin Calcium 40 Mg Tablet) 40 mg PO BEDTIME [facility] Last Admin: 06/24/24 22:32 Dose: 40 mg Bisacodyl (Bisacodyl 5 Mg Tablet.) 10 mg PO BEDTIME [facility] Last Admin: 06/24/24 22:32 Dose: 10 mg Celecoxib (Celecoxib 200 Mg Capsule) 200 mg PO BID [facility] Last Admin: 06/25/24 09:51 Dose: 200 mg Escitalopram Oxalate (Escitalopram Oxalate 10 Mg Tablet) 10 mg PO DAILY [facility] Last Admin: 06/25/24 09:19 Dose: 10 mg Gabapentin (Gabapentin 300 Mg Capsule) 300 mg PO BID [facility] Last Admin: 06/25/24 09:19 Dose: 300 mg Glucose (Glucose Gel 15 Gm Gel..Gram.) 15 gm PO Q15M PRN; Protocol PRN Reason: per Hypoglycemia Standing Ord. Heparin Sodium (Porcine) (Heparin Sodium,Porcine 5,000 Unit/Ml Vial) 5,000 unit SUBCUT Q12H [facility] Last Admin: 06/25/24 09:18 Dose: 5,000 unit Dextrose (D10) 250 mls @ 750 mls/hr IV Q15M PRN; Protocol PRN Reason: per Hypoglycemia Standing Ord. Vancomycin HCl 1,000 mg/ (Sodium Chloride) 270 mls @ 270 mls/hr IV Q24H [facility] Piperacillin Sod/Tazobactam (Sod 3.375 gm/ Sodium Chloride) 50 mls @ 100 mls/hr IV Q6H [facility] Last Infusion: 06/25/24 13:50 Dose: Infused Insulin Glargine (Insulin Glargine,Hum.Rec.Anlog 100 Unit/Ml 10 Ml Vial) 25 unit SUBCUT BEDTIME [facility] Last Admin: 06/24/24 22:32 Dose: 25 unit Insulin Human Lispro (Insulin Lispro 100 Unit/Ml 3 Ml Vial) 0 unit SUBCUT QIDACHS [facility]; Protocol Last Admin: 06/25/24 13:19 Dose: 10 unit Lisinopril (Lisinopril 10 Mg Tablet) 10 mg PO DAILY [facility]; Protocol Last Admin: 06/25/24 09:19 Dose: 10 mg Magnesium Hydroxide (Milk Of Magnesia 30 Ml Oral.Susp) 30 ml PO DAILY PRN PRN Reason: Constipation Melatonin (Melatonin 3 Mg Tablet) 6 mg PO BEDTIME PRN PRN Reason: Insomnia Metoprolol Succinate (Metoprolol Succinate Er 25 Mg Tab.Er.24h) 25 mg PO DAILY [facility]; Protocol Last Admin: 06/25/24 09:19 Dose: 25 mg Omeprazole (Omeprazole 20 Mg Capsule.Dr) 20 mg PO DAILY@0630 [facility] Last Admin: 06/25/24 06:22 Dose: 20 mg Oxcarbazepine (Oxcarbazepine 300 Mg Tablet) 300 mg PO BID [facility] Last Admin: 06/25/24 09:19 Dose: 300 mg Pharmacy Consult (Consult Rx Vancomycin Dosing) 1 each MISCELLANE DAILY PRN PRN Reason: Consult order Sodium Chloride (0.9 % Sodium Chloride Flush 3 Ml Syringe) 3 ml IVFLUSH QSHIFT [facility] Last Admin: 06/25/24 07:46 Dose: 3 ml Vitamin D (Cholecalciferol (Vitamin D3) 25 Mcg Tablet) 50 mcg PO DAILY [facility] Last Admin: 06/25/24 09:19 Dose: 50 mcg Labs 06/25/24 04:50 06/26/24 07:14 Labs: Laboratory Results - last 24 hr 06/24/24 06/24/24 06/25/24 19:59 21:44 04:50 MCV 84.6 MCH 27.7 MCHC 32.8 RDW 11.7 Plt Count 223 MPV 11.5 Immature Gran % (Auto) 0.3 Neut % (Auto) 53.3 Lymph % (Auto) 26.5 [place] % (Auto) 12.6 H Eos % (Auto) 6.4 H Baso % (Auto) 0.9 Lymph # (Auto) 1.9 [place] # (Auto) 0.9 Eos # (Auto) 0.5 H Baso # (Auto) 0.1 Abs Immat Gran (auto) 0.02 Absolute Neuts (auto) 3.7 Absolute Nucleated RBC 0.000 Nucleated RBC % (auto) 0.0 Anion Gap 11 L Estim Creat Clear Calc 89.8 Estimated GFR 50 POC Glucose 285 H 258 H Random Glucose 251 H Estimat Average Glucose 280 Hemoglobin A1c % 11.4 H Calcium 8.9 D 06/25/24 06/25/24 07:09 13:09 MCV MCH MCHC RDW Plt Count MPV Immature Gran % (Auto) Neut % (Auto) Lymph % (Auto) [place] % (Auto) Eos % (Auto) Baso % (Auto) Lymph # (Auto) [place] # (Auto) Eos # (Auto) Baso # (Auto) Abs Immat Gran (auto) Absolute Neuts (auto) Absolute Nucleated RBC Nucleated RBC % (auto) Anion Gap Estim Creat Clear Calc Estimated GFR POC Glucose 257 H 301 H Random Glucose Estimat Average Glucose Hemoglobin A1c % Calcium Microbiology Microbiology Results: Microbiology 06/24/24 14:53 Blood - Venous Blood Culture - Preliminary No growth after 24 hours. Quality Stroke Does the patient have a stroke diagnosis?: No VTE Prior VTE?: No VTE Risk Level:: Medical - moderate - high VTE Device Contraindication: Treatment Not Indicated VTE Drug Contraindication: N/A - Med Ordered
[2024-06-25 18:19] LABS: Glucose, Whole Blood 221 mg/dL (60-115)
[2024-06-25] MEDS: vancomycin HCL 1,000 MG in 0.9 % Sodium Chloride 250 ML 270 MG IV (18:23)
--- NOTE | 2024-06-25 19:49 | PC.NURSE ---
Pt a&ox4, no signs distress. Pt resting in bed comfortably, watching tv. Pt medicated per mar. Plan of care ongoing.
[2024-06-25 21:34] LABS: Glucose, Whole Blood 281 mg/dL (60-115)
[2024-06-25] MEDS: Atorvastatin Calcium 40 MG TABLET PO (21:49)
[2024-06-25] MEDS: bisacodyL 5 MG TABLET.DR 10 MG PO (21:49)
[2024-06-25] MEDS: Insulin Glargine,Hum.rec.anlog 100 UNIT/ML 10 ML VIAL 25 UNIT SUBCUT (21:50)
[2024-06-26] VITALS: BP 142/81; PULSE 80; RESP 19; TEMP 36.2; O2SAT 96
[2024-06-26] MEDS: Piperacillin Sodium/Tazobactam 3.375 GM in 0.9 % Sodium Chloride 50 ML IV ×2 (00:59→08:58)
[2024-06-26] MEDS: 0.9 % Sodium Chloride Flush 3 ML SYRINGE IVFLUSH (01:00)
[2024-06-26 03:55] VITALS: BP 134/71; PULSE 58; RESP 18; O2SAT 98
[2024-06-26] MEDS: Omeprazole 20 MG CAPSULE.DR PO (06:23)
[2024-06-26 07:28] LABS: Glucose, Whole Blood 239 mg/dL (60-115)
[2024-06-26 07:41] LABS: Creatinine Clr Calc Pharmacy 92.2; Estimated Glomerular Filt Rate 51
[2024-06-26 07:52] VITALS: BP 115/52; PULSE 69; RESP 14; TEMP 36.4; O2SAT 95
--- NOTE | 2024-06-26 08:14 | PM.PNGS ---
Subjective Subjective Date of Service: 06/26/24 Interval history: No new complaint Some pain on the right foot Feels well overall Physical Exam Vital Signs: Vital Signs: Last Vital Signs Temp 97.6 F 06/26/24 07:52 Pulse 69 06/26/24 07:52 Resp 14 06/26/24 07:52 BP 115/52 L 06/26/24 07:52 Pulse Ox 95 06/26/24 07:52 O2 Del Method Room Air 06/26/24 07:52 BMI result Body Mass Index 50.9 Const: Other: Looks well General: comfortable and no acute distress Resp: Effort & Inspection: normal respiratory effort Cardio: Rate: regular rate GI: Palpation (GI): Soft to palpation Extrem: Other: Right foot with a draining ulcer on the forefoot, laterally Objective Data Active Medications Acetaminophen (Acetaminophen 325 Mg Tablet) 975 mg PO Q6H PRN PRN Reason: Pain, Mild 1-3,fever,headache Aspirin (Aspirin Enteric Coated 81 Mg Tablet.) 81 mg PO DAILY [facility] Last Admin: 06/25/24 09:19 Dose: 81 mg Documented By: KIERAN Atorvastatin Calcium (Atorvastatin Calcium 40 Mg Tablet) 40 mg PO BEDTIME [facility] Last Admin: 06/25/24 21:49 Dose: 40 mg Documented By: ALHAJI Bisacodyl (Bisacodyl 5 Mg Tablet.) 10 mg PO BEDTIME [facility] Last Admin: 06/25/24 21:49 Dose: 10 mg Documented By: ALHAJI Celecoxib (Celecoxib 200 Mg Capsule) 200 mg PO BID [facility] Last Admin: 06/25/24 21:48 Dose: 200 mg Documented By: ALHAJI Escitalopram Oxalate (Escitalopram Oxalate 10 Mg Tablet) 10 mg PO DAILY [facility] Last Admin: 06/25/24 09:19 Dose: 10 mg Documented By: KIERAN Gabapentin (Gabapentin 300 Mg Capsule) 300 mg PO BID [facility] Last Admin: 06/25/24 21:48 Dose: 300 mg Documented By: ALHAJI Glucose (Glucose Gel 15 Gm Gel..Gram.) 15 gm PO Q15M PRN; Protocol PRN Reason: per Hypoglycemia Standing Ord. Heparin Sodium (Porcine) (Heparin Sodium,Porcine 5,000 Unit/Ml Vial) 5,000 unit SUBCUT Q12H [facility] Last Admin: 06/25/24 21:49 Dose: 5,000 unit Documented By: ALHAJI Dextrose (D10) 250 mls @ 750 mls/hr IV Q15M PRN; Protocol PRN Reason: per Hypoglycemia Standing Ord. Vancomycin HCl 1,000 mg/ (Sodium Chloride) 270 mls @ 270 mls/hr IV Q24H [facility] Last Infusion: 06/25/24 19:40 Dose: Infused Documented By: ARUN Piperacillin Sod/Tazobactam (Sod 3.375 gm/ Sodium Chloride) 50 mls @ 100 mls/hr IV Q6H [facility] Last Infusion: 06/26/24 01:30 Dose: Infused Documented By: ALHAJI Insulin Glargine (Insulin Glargine,Hum.Rec.Anlog 100 Unit/Ml 10 Ml Vial) 25 unit SUBCUT BEDTIME [facility] Last Admin: 06/25/24 21:50 Dose: 25 unit Documented By: ALHAJI Insulin Human Lispro (Insulin Lispro 100 Unit/Ml 3 Ml Vial) 0 unit SUBCUT QIDACHS [facility]; Protocol Last Admin: 06/25/24 21:50 Dose: 8 unit Documented By: ALHAJI Lisinopril (Lisinopril 10 Mg Tablet) 10 mg PO DAILY [facility]; Protocol Last Admin: 06/25/24 09:19 Dose: 10 mg Documented By: KIERAN Magnesium Hydroxide (Milk Of Magnesia 30 Ml Oral.Susp) 30 ml PO DAILY PRN PRN Reason: Constipation Melatonin (Melatonin 3 Mg Tablet) 6 mg PO BEDTIME PRN PRN Reason: Insomnia Metoprolol Succinate (Metoprolol Succinate Er 25 Mg Tab.Er.24h) 25 mg PO DAILY [facility]; Protocol Last Admin: 06/25/24 09:19 Dose: 25 mg Documented By: KIERAN Omeprazole (Omeprazole 20 Mg Capsule.Dr) 20 mg PO DAILY@0630 [facility] Last Admin: 06/26/24 06:23 Dose: 20 mg Documented By: ALHAJI Oxcarbazepine (Oxcarbazepine 300 Mg Tablet) 300 mg PO BID [facility] Last Admin: 06/25/24 21:48 Dose: 300 mg Documented By: ALHAJI Pharmacy Consult (Consult Rx Vancomycin Dosing) 1 each MISCELLANE DAILY PRN PRN Reason: Consult order Sodium Chloride (0.9 % Sodium Chloride Flush 3 Ml Syringe) 3 ml IVFLUSH QSHIFT [facility] Last Admin: 06/26/24 01:00 Dose: 3 ml Documented By: ALHAJI Vitamin D (Cholecalciferol (Vitamin D3) 25 Mcg Tablet) 50 mcg PO DAILY [facility] Last Admin: 06/25/24 09:19 Dose: 50 mcg Documented By: KIERAN Labs 06/25/24 04:50 06/26/24 07:14 Labs: Laboratory Results - last 24 hr 06/25/24 06/25/24 06/25/24 13:09 18:15 21:30 Estim Creat Clear Calc Estimated GFR POC Glucose 301 H 221 H 281 H 06/26/24 06/26/24 07:14 07:20 Estim Creat Clear Calc 92.2 Estimated GFR 51 POC Glucose 239 H Microbiology Microbiology Results: Microbiology 06/24/24 18:03 Blood Culture - Preliminary Blood - Venous No growth after 24 hours. 06/24/24 14:53 Blood Culture - Preliminary Blood - Venous No growth after 24 hours. Procedures Date of Service Date of Service: 06/26/24 Progress Note: A&P Assessment and plan (1) Diabetic foot ulcer: Status: Acute Assessment and Plan: MRI does not suggest osteomyelitis No spreading cellulitis Continue antibiotic Wound care with dry dressings daily Emphasized with the patient importance of blood sugar control Does not appear to require debridement at this time Time Spent With Patient Time: Total time managing care of this patient today ____ minutes. Quality Stroke Does the patient have a stroke diagnosis?: No VTE Prior VTE?: No VTE Risk Level:: Medical - moderate - high VTE Device Contraindication: Treatment Not Indicated VTE Drug Contraindication: N/A - Med Ordered
[2024-06-26] MEDS: Heparin Sodium,Porcine 5,000 UNIT/ML VIAL 5000 UNIT SUBCUT (08:59)
[2024-06-26] MEDS: Insulin Lispro 100 UNIT/ML 3 ML VIAL SUBCUT ×2 (09:00→12:04)
[2024-06-26] MEDS: Celecoxib 200 MG CAPSULE PO (09:01)
[2024-06-26] MEDS: Escitalopram Oxalate 10 MG TABLET PO (09:01)
[2024-06-26] MEDS: Aspirin Enteric Coated 81 MG TABLET.DR PO (09:01)
[2024-06-26] MEDS: Cholecalciferol (Vitamin D3) 25 MCG TABLET 50 MCG PO (09:01)
[2024-06-26] MEDS: Gabapentin 300 MG CAPSULE PO (09:01)
[2024-06-26] MEDS: OXcarbazepine 300 MG TABLET PO (09:01)
[2024-06-26] MEDS: lisinopriL 10 MG TABLET PO (09:01)
[2024-06-26] MEDS: Metoprolol Succinate ER 25 MG TAB.ER.24H PO (09:01)
--- NOTE | 2024-06-26 09:33 | HO.WOUND ---
Wound Consult: Initial 54yr old?female admitted to [facility] 06[facility]24/24 - See progress notes and H&P for detailed history.? Wound consult placed for Right Foot.? Patient agreeable to assessment and photo documentation.? Pt reports neuropathy and denies pain. Right Anterior Foot Right Lateral Foot Right Plantar foot Etiology: ??Diabetic Wound Measurements: Anterior site 0.5cm x 1cm x 0.1cm Lateral site 2cm x 2cm x 0.2cm Wound Bed: anterior dried scab lateral site - moist red pink with scant yellow adherent slough noted Drainage / Odor: serosang noted no odor Edges: ?moist thickened callus lifting Celi wound: ? Intact No Induration, Fluctuance or Warmth noted Pain: denies reports neuropathy Goals of Treatment: ? Elevate lower leg off load pressure to allow for healing and Durafiber for moisture management Recommendations: 1. Maintain blood glucose levels per Providers order. 2. Right Foot - Elevate lower leg on pillows. Limit standing and walking on wound. Cleanse with NS moist gauze, pay dry. Apply barrier cream to periwound, cover wound bed with Durafiber AG, ABD pad and wrap. Change every other day. Recommend follow up out patient Wound Clinic at [address] [place] [id number] and to call for an appointment at time of discharge. [phone].? Re-consult wound care Nurse for wound deterioration or wound changes.
[2024-06-26 11:25] LABS: Glucose, Whole Blood 298 mg/dL (60-115)
[2024-06-26 12:00] VITALS: BP 119/57; PULSE 77; RESP 14; TEMP 36.1; O2SAT 96
[2024-06-26] MEDS: Insulin Glargine,Hum.rec.anlog 100 UNIT/ML 10 ML VIAL 10 UNIT SUBCUT (12:04)
--- NOTE | 2024-06-26 12:45 | W.MHC.F2F ---
Service Date Service Date: 06/26/24 Encounter Date of encounter: 06/26/24 Encounter: foot wound, dm Reasons for Services Signs and symptoms assessed: moniter if worsening of foot wound or fever or new symptoms Reason for residential: wound care, medication management, medication treatment and teach disease management MD Overseeing Care: Edwin Benitez Homebound: Leaving the home is medically contraindicated at this time without the asist of a device and/or another person due th the listed conditions above and below. Reason homebound: weakness related to hospital stay Homebound supporting statement: Patient will benefit from Vna-for foot wound for monitoring, dressing, diabetics and medical management, also need help with appointments. Certification: Based on the above findings, I certify that this patient is confined to the home and needs intermittent residential care, physical therapy and/or speech therapy, or continues to need occupational therapy. The patient is under my care, and I have initiated the establishment of the plan of care. The patient will be followed by a physician who will periodically review the plan of care. Time Spent With Patient Time: Total time managing care of this patient today ____ minutes.
--- NOTE | 2024-06-26 12:47 | PM.DS ---
DS: Providers Provider Date of Service: 06/26/24 Date of admission: 06/24/24 19:29 Date of discharge: 06/26/24 Primary care physician: Edwin Benitez MD Consults: 06/24/24 19:37 Consult to General Surgery Routine Consulting Provider: [facility] [place] General Surgeons Reason for consultation: Right foot infected wound Has provider been notified: No 06/25/24 12:43 Consult to Wound Care Routine Reason for consultation: diabetic ulcer to R foot Attending physician on discharge: Nini Llamas Discharging clinician: Nini Llamas DS: Diagnosis Discharge Diagnosis (1) Wound of foot: Status: Acute DS: Summary Hospital Course Hospital Course: HPI: 54 years old woman with past medical history significant for type 2 diabetes mellitus on insulin, hyperlipidemia, hypertension and CKD presents to the emergency department complaining of right foot wound. The wound has developed purulent discharge since yesterday. She has associated pain. Denies fever or chills. She denied any acute cardiopulmonary, gastrointestinal or genitourinary symptoms. She has history of 3rd toe amputation and nonhealing ulcer to the right 4th toe followed by surgery as an outpatient. In the ED, she was found to have stable vital signs. Blood workup showed no leukocytosis. There is no lactic acidosis. CRP is elevated at 9.07. Hemoglobin and platelets are normal. Blood glucose 460. Creatinine is 1.55 and BUN 20 bolus around baseline. Right foot x-ray showed soft tissue swelling over the 5th MTP joint without obvious evidence of osteomyelitis. ED Tx: Zosyn 3.375 g, NS 1 L bolus, insulin R 10 units IV, vancomycin 2 g. Hospital course: Patient was admitted for right side dm foot wound/cellulitis : Started IV antibiotics, blood cultures sent, ESR 30, MRIs foot done-did not show osteomyelitis or abscess. Patient was seen by surgery as well as wound care-wound area is improving, patient was subsequently switched to p.o. antibiotics, blood culture negative at 24 hours. Patient denies any new symptoms. plan: Monitor wound area, patient will go home with above wound care instructions. benefit from VNA for that. Complete doxycycline 100 mg p.o. b.i.d. and Augmentin 875 mg p.o. b.i.d. for 7 days. Patient was also strongly advised to monitor fingersticks, diabetic diet and diabetic control. Patient is to follow-up out patiently with PCP and surgery/Wound Care outpatient. Above management discussed with the patient detail length with the help of trail maintenance worker, patient understand and in agreement with the above plan, time spent 40 minute. Time Attestation Total time managing care of this patient today: 40 mintues. Discharge Coordination Time (in mins): 40 min Quality: Safe Use of Opioids Does Pt have an Active Cancer Diagnosis on the Problem List?: No Quality: Stroke Does the patient have a stroke diagnosis?: No Physical Exam Vital Signs: Vital Signs: Last Vital Signs Temp 97 F 06/26/24 12:00 Pulse 77 06/26/24 12:00 Resp 14 06/26/24 12:00 BP 119/57 L 06/26/24 12:00 Pulse Ox 96 06/26/24 12:00 O2 Del Method Room Air 06/26/24 12:00 BMI result Body Mass Index 50.9 Constitutional - Awake and Alert, No apparent distress. Pleasant. Cooperative. Afebrile. HEENT - PERRL, EOMI. Cardiovascular - S1S2, RRR Lungs - CTA bilaterally Abdomen - NT / ND; +BS; No rebound or guarding Extremities - distal pulses present. right wound foot -lateral - no erythema or drainage. DS: Data Data Completed and Pending Completed studies during hospitalization [Text1]: Procedures Insertion of Infusion Device into Superior Vena Cava, Percutaneous Approach (12/27/22) Ultrasonography of Superior Vena Cava, Guidance (12/27/22) Labs on day of discharge: Laboratory Results - last 24 hr 06/25/24 06/25/24 06/25/24 13:09 18:15 21:30 Creatinine Estim Creat Clear Calc Estimated GFR POC Glucose 301 H 221 H 281 H 06/26/24 06/26/24 06/26/24 07:14 07:20 11:17 Creatinine 1.10 Estim Creat Clear Calc 92.2 Estimated GFR 51 POC Glucose 239 H 298 H Preliminary micro results at discharge 06/24/24 18:03 Blood Culture - Preliminary Blood - Venous No growth after 24 hours. 06/24/24 14:53 Blood Culture - Preliminary Blood - Venous No growth after 24 hours. Imaging Chest x-ray: Radiologist's impression: ITS Impressions Foot X-Ray 06/24/24 14:37 IMPRESSION: 1. Soft tissue swelling over the 5th MTP joint. No plain film evidence of osteomyelitis. If this remains a clinical concern, three-phase bone scan or MRI could be performed. 2. Severe osteoarthritis of the intertarsal and tarsometatarsal joints. Electronically signed by: Baudilio Kirkland MD 06/24/2024 03:47 PM EST RP Foot MRI 06/25/24 10:50 IMPRESSION: 1. Soft tissue ulceration over the MTP joint of the 5th toe. No evidence of osteomyelitis or abscess. 2. Severe osteoarthritis of the intertarsal and tarsometatarsal joints. Electronically signed by: Baudilio Kirkland MD 06/25/2024 11:57 AM EST RP Discharge Plan Discharge Anticipated Discharge Date/Time: 06/26/24 12:36 Patient Disposition: Home Health Service Discharge Diagnosis: foot wound ,cellulitis Referrals: [facility] [Outside] - 1 Week Edwin Benitez MD [Primary Care Provider] - 1 Week Dylan Lim MD [Physician] - 1 Week Discharge Medications: New doxycycline monohydrate 100 mg Capsule 100 mg PO Q12H Qty: 14 0RF amoxicillin-pot clavulanate 875-125 mg Tablet 1 tab PO Q12H Qty: 14 0RF Continued (DME) Dexcom G6 Transmitter Device See Rx Instructions .ROUTE .MEDSUPPLY Qty: 1 3RF Rx Instructions: As directed one every 3 months (DME) FreeStyle Lite Strips Strip See Rx Instructions .Route Qty: 120 11RF Rx Instructions: As directed testing 4x daily. cholecalciferol (vitamin D3) 50 mcg (2,000 unit) capsule 2,000 unit PO DAILY Qty: 30 3RF atorvastatin 40 mg tablet 40 mg PO BEDTIME Qty: 90 3RF nitroglycerin 0.4 mg tablet, sublingual 0.4 mg sublingual Q5M PRN (Reason: chest pain) Qty: 20 1RF Rx Instructions: do not exceed 3 doses per episode insulin aspart U-100 [Novolog FlexPen U-100 Insulin] 100 unit/mL (3 mL) insulin pen See Protocol subcut TIDAC Protocol: Insulin Correction Scale Less than or equal to 110 ---- Give (units): 0 111 to 150 Give (units): 0 151 to 200 Give (units): 2 201 to 250 Give (units): 4 251 to 300 Give (units): 6 301 to 350 Give (units): 8 Greater than 350 Give (units): 10 Call MD if Blood Glucose > : 350 aspirin 81 mg tablet,delayed release (DR/EC) 81 mg PO DAILY insulin glargine U-300 conc [Toujeo SoloStar U-300 Insulin] 300 unit/mL (1.5 mL) insulin pen 40 unit subcut BEDTIME oxcarbazepine 300 mg tablet 300 mg PO BID omeprazole 20 mg capsule,delayed release(DR/EC) 20 mg PO DAILY@0630 escitalopram oxalate 10 mg tablet 10 mg PO DAILY Rx Instructions: take 1.5 tablets daily bupropion HCl 300 mg tablet extended release 24 hr 300 mg PO DAILY gabapentin 300 mg capsule 300 mg PO BID lisinopril 10 mg tablet 10 mg PO DAILY celecoxib [Celebrex] 200 mg capsule 200 mg PO BID 30 Days Qty: 60 3RF (DME) lancets [TRUEplus Lancets] 33 gauge misc See Rx Instructions .ROUTE .MEDSUPPLY Qty: 100 Rx Instructions: As directed Ozempic 0.25 mg or 0.5 mg (2 mg/3 mL) pen injector 0.5 mg subcut MO (DME) pen needle, diabetic [Pentips Pen Needle] 32 gauge x 5/32 needle See Rx Instructions .ROUTE .MEDSUPPLY Qty: 1200 Rx Instructions: As directed metoprolol succinate 25 mg tablet extended release 24 hr 25 mg PO DAILY eszopiclone 3 mg tablet 3 mg PO BEDTIME PRN (Reason: Sleep) bisacodyl [Dulcolax (bisacodyl)] 5 mg tablet,delayed release (DR/EC) 10 mg PO BEDTIME Qty: 16 0RF Rx Instructions: Start taking 2 tablet every night 7 days before the procedure and 1 day before procedure take 4 tablets at noon time followed by MiraLax prep Discharge Orders: Discharge Order (Routine); Ordered 06/26/24 Ordered By: Nini Llamas Diet: Advance to usual diet Activity on Discharge: As tolerated Stand Alone Forms: Patient Portal Discharge page Print Language: Portuguese Activity Restrictions/Additional Instructions: Topical Wound Care Recommendations: Right Foot - Elevate lower leg on pillows. Limit standing and walking on wound. Cleanse with NS moist gauze, pay dry. Apply barrier cream to periwound, cover wound bed with Durafiber AG, ABD pad and wrap. Change every other day. Recommend follow up out patient Wound Clinic at [address] [place] [address] and to call for an appointment at time of discharge. [phone].? Care Plan Goals: Patient was admitted for right side foot wound/cellulitis: Started IV antibiotics, blood cultures sent, ESR 30, MRIs foot done-did not show osteomyelitis or abscess. Patient was seen by surgery as well as wound care-wound area is improving, patient was subsequently switched to p.o. antibiotics, blood culture negative at 24 hours. Patient denies any new symptoms. Health Concerns: As above Plan of Treatment: Monitor wound area, patient will go home with above wound care instructions. benefit from VNA for that. Complete doxycycline 100 mg p.o. b.i.d. and Augmentin 875 mg p.o. b.i.d. for 7 days. Patient was also strongly advised to monitor fingersticks, diabetic diet and diabetic control. Patient is to follow-up out patiently with PCP and surgery/Wound Care outpatient. Assessment: As above.
[2024-06-26] MEDS: Amoxicillin/Potassium Clav 875 MG TABLET PO (13:46)
[2024-06-26] MEDS: Doxycycline Monohydrate 100 MG CAPSULE PO (13:46)
--- NOTE | 2024-06-26 13:58 | MHC.CM.PN ---
Pt is medically cleared for discharge home today with new [facility] services per pts choice, pts POCKET GRINDER OPERATOR will transport her home today.
== END 2024-06-26 14:49 | disposition home health service (06) | DRG 638 ==
LOC: HO.ED 18:40 → HO.EDOVER 19:33 → HO.IMC 06-25 19:11
PROVIDERS: Physician Assistant; Admitting Provider Internal Medicine; Emergency Provider Emergency Medicine; PCP Internal Medicine; Visit Provider Internal Medicine
DX: E11.621 Type 2 diabetes mellitus with foot ulcer (principal); L03.115 Cellulitis of right lower limb; L97.419 Non-pressure chronic ulcer of right heel and midfoot with unspecified severity; Z68.43 Body mass index [BMI] 50.0-59.9, adult; I12.9 Hypertensive chronic kidney disease with stage 1 through stage 4 chronic kidney disease, or unspecified chronic kidney disease; E11.628 Type 2 diabetes mellitus with other skin complications; E66.01 Morbid (severe) obesity due to excess calories; N18.32 Chronic kidney disease, stage 3b; E11.40 Type 2 diabetes mellitus with diabetic neuropathy, unspecified; E78.5 Hyperlipidemia, unspecified; E11.22 Type 2 diabetes mellitus with diabetic chronic kidney disease; Z79.4 Long term (current) use of insulin; Z79.82 Long term (current) use of aspirin; Z79.899 Other long term (current) drug therapy
CPT/HCPCS: 36415; 73630; 73720; 80048; 80053; 82565; 82947; 83036; 83605; 85025; 85652; 86140; 87040; 99222; 99285; A9585; J1644; J2543; J3370

== ENCOUNTER → 2024-06-24 14:37 | Outpatient (BNV) | payer OTHER, SELFPAY | PROVIDERS: PCP Internal Medicine; Visit Provider Radiology Diagnostic Radiology | DX: M86.171 Other acute osteomyelitis, right ankle and foot (principal) | CPT/HCPCS: 73630 ==

== ENCOUNTER 2024-06-24 19:29 | Outpatient (BNV) | payer OTHER, SELFPAY | END 2024-06-25 10:50 | PROVIDERS: Admitting Provider Internal Medicine; Emergency Provider Emergency Medicine; PCP Internal Medicine; Visit Provider Radiology Diagnostic Radiology | DX: S91.301A Unspecified open wound, right foot, initial encounter (principal) | CPT/HCPCS: 73720 ==

== ENCOUNTER → 2024-06-24 19:29 | Outpatient (BNV) | payer OTHER, SELFPAY | PROVIDERS: Admitting Provider Internal Medicine; Emergency Provider Emergency Medicine; PCP Internal Medicine; Visit Provider Surgery | DX: E11.621 Type 2 diabetes mellitus with foot ulcer (principal); L97.501 Non-pressure chronic ulcer of other part of unspecified foot limited to breakdown of skin; S91.309A Unspecified open wound, unspecified foot, initial encounter | CPT/HCPCS: 99222; 99232 ==

== ENCOUNTER → 2024-06-24 19:29 | Outpatient (BNV) | payer OTHER, SELFPAY | PROVIDERS: Admitting Provider Internal Medicine; Emergency Provider Emergency Medicine; PCP Internal Medicine; Visit Provider Internal Medicine | DX: S91.301A Unspecified open wound, right foot, initial encounter (principal); N18.32 Chronic kidney disease, stage 3b; E78.5 Hyperlipidemia, unspecified | CPT/HCPCS: 99223; 99231; 99239; G0180 ==

== ENCOUNTER 2024-07-08 09:59 | Outpatient (AMB) | payer OTHER, SELFPAY ==
--- NOTE | 2024-07-08 10:02 | MHC.OFFVIS ---
Vital Signs 07/08/24 10:07 Height 5 ft 9 in Weight 335 lb 4 oz BMI 49.5 Intake Visit Reasons: Foot wound Intake Note: This patient presents for hospital follow-up for Right foot infected wound. Pt c/o. no concerns. C Developer Required: No Accompanied by: Daughter Allergies No Known Allergies Allergy (Unknown, Verified 07/08/24 10:08) Medication List - Last Reviewed 07/08/24 by JESSE Hills amoxicillin-pot clavulanate 875-125 mg 1 tab PO Q12H aspirin 81 mg PO DAILY atorvastatin 40 mg PO BEDTIME bisacodyl (Dulcolax (bisacodyl)) 10 mg (2 x 5 mg) PO BEDTIME blood sugar diagnostic (FreeStyle Lite Strips) As directed testing 4x daily. blood-glucose transmitter ([employer] G6 Transmitter device) As directed one every 3 months bupropion HCl XL 300 mg PO DAILY celecoxib 200 mg PO BID cholecalciferol (vitamin D3) 2,000 units PO DAILY doxycycline monohydrate 100 mg PO Q12H escitalopram oxalate 10 mg PO DAILY eszopiclone 3 mg PO BEDTIME PRN gabapentin 300 mg PO BID insulin aspart U-100 (Novolog FlexPen U-100 Insulin aspart) See Protocol units subcut TIDAC insulin glargine U-300 conc (Toujeo SoloStar U-300 Insulin) 40 units subcut BEDTIME lancets (TRUEplus Lancets) As directed lisinopril 10 mg PO DAILY metoprolol succinate ER 25 mg PO DAILY nitroglycerin 0.4 mg sublingual Q5M PRN omeprazole 20 mg PO DAILY@0630 oxcarbazepine 300 mg PO BID pen needle, diabetic (Pentips Pen Needle) As directed semaglutide (Ozempic) 0.5 mg subcut MO HPI HPI Foot wound: Details: 50-year-old male with known diabetes, morbidly obese, here for follow-up for an open would and drainage on the right foot laterally. I had seen her in the hospital as a consult last 06/25/2024. She did not have osteomyelitis on her MRI so was instructed on wound care. She admits to poor control of her blood sugars . She has a history of amputation of the 3rd toe and partial amputation of the 2nd toe on the same foot. She had a chronic ulcer on the 4th toe as well in the past but this had healed. She has been seen by the Wound Clinic after discharge from the hospital 2 weeks ago. She does state that the pain has improved significantly. [facility] Medical History Wound of foot Toe ulcer due to DM Arm swelling Restrictive lung disease Dyspnea on exertion Morbid obesity Gallstones Obesity due to excess calories Chronic kidney disease, stage 3 Charcot foot due to diabetes mellitus Depression Vitamin D deficiency Hyperlipidemia LDL goal <100 Hypertension Diabetic polyneuropathy Type 2 diabetes mellitus with chronic kidney disease Surgical History Hx of colonoscopy History of partial ray amputation of third toe of right foot Hx of wisdom tooth extraction History of partial amputation of toe (2018) History of total hysterectomy with bilateral salpingo-oophorectomy (BSO) Family History Father Type 2 diabetes mellitus Mother Type 2 diabetes mellitus Diverticulitis Hypertension Social History Household Members: Family Household Members Other:: , mother Housing: House Are you a primary healthcare technician to a significant other at home: No Do you presently have visiting nurse or other home services: No Alcohol intake: former Patient Tobacco Use Status: Never used Tobacco service: No Review of Systems Const Denies chills and Denies fever(s) Card Denies chest pain, Denies dyspnea and Denies dyspnea on exertion Resp Denies cough, Denies dyspnea and Denies dyspnea on exertion GI Denies hematochezia and Denies change in bowel habits Denies hematuria Musc Denies back pain and Denies limited range of motion Neuro Denies focal weakness and Denies convulsions Psych Denies depression and Denies mood swings Physical Exam Const Other: morbidly obese General: comfortable and no acute distress Orientation/consciousness: patient oriented x3 Neck Neck: Yes no lymphadenopathy Resp Auscultation: clear to auscultation bilaterally Cardio Rhythm: regular rhythm GI Palpation (GI): Soft to palpation, nontender and no guarding Neuro General: patient oriented x3 Extrem Other: Ulcer on the lateral aspect of the forefoot on the right side, about 1.3 cm Assessment & Plan Assessment & Plan (1) Diabetic foot ulcer: Code(s): E11.621 - Type 2 diabetes mellitus with foot ulcer; L97.509 - Non-pressure chronic ulcer of other part of unspecified foot with unspecified severity Category: Medical Plan: She has this ulcer on the right foot as described above. This does not seem to require debridement. I explained to her that she should continue to follow with the Wound Clinic. I emphasized the importance of good blood sugar control. I did tell her that she can always follow up in the office on a p.r.n. basis. Coding Level of Care Code Est Pt Level 2 (26126) Diagnoses Diabetic foot ulcer E11.621; L97.509
[2024-07-08 10:07] VITALS: BMI 49.5
--- OUTSIDE RECORDS SUMMARY | 2024-07-08 10:25 | XMS_ITS | Data Portability ---
Author Organization [employer] [facility] [place] - [facility] Address [address] [place] [phone] Care Team Providers Care Meat And Seafood Clerk Name Role Phone [facility] Referring Provider Assessment Encounter Date Assessment Date Assessment LastModified by Organization Details LastModified Time 01/03/2023 01/03/2023 I provided real -time medical direction via phone for this encounter, and was available for additional phone based assistance as needed. I have reviewed and agree with the Assessment and Plan as documented by the Traveling Nurse. Patient given the opportunity to ask questions. Advised if develops CP/severe SOB/turning blue/uncontrolle d n/v/d or black/bloody emesis or stool/ AMS/ syncope/redness extending up the leg or high fever to call 911- verbalized understanding of instructions [email or web address] Not available 01/04/2023 10:40:07 Plan of Treatment Reminders Order Date Submit Date Provider Last Modified By Organization Details Last Modified Time Details Appointments None recorded. Lab BMP, serum or plasma 2022 023 [email or web address] 0 [facility], [address] [place] [address], [phone], 3 13:54:32 glucose, fingerstick , blood 2022 023 [email or web address] 0 [facility], [address] [place] [address], [phone], 3 13:16:40 Referral None recorded. Procedures None recorded. Surgeries None recorded. Imaging None recorded. Medication Orders sodium chloride 0.9 % intravenous solution 2022 023 [email or web address] 0 Not available 13:16:40 bacitracin 500 unit/gram topical ointment 2022 023 [facility], [address] [place] [address], [phone], 12:54:15 bacitracin 500 unit/gram topical ointment 2022 023 [email or web address] 0 [facility], [address] [place] [address], [phone], 13:54:32 Patient TargetsNo targets recorded. Patient InstructionsNo instructions recorded. Reason for Referral None Reported. Results Created Date Observation Date Name Description Value Unit Range Abnormal Flag Note LastModifiedBy Organization Detail LastModifiedTime 01/04/2001/03/2023 BMP, serum or plasm a BUN 18 Not Available [facility] [address], [phone], 01/03/2023 13:17:08 01/04/20 23 01/03/2023 BMP, serum or plasm a Ca I hanh 1.12 Not Available [facility] [address], [address], 01/03/2023 13:17:08 01/04/20 23 01/03/2023 BMP, serum or plasm a CI- 100 Not Available [facility] [address], [address], 01/03/2023 13:17:08 01/04/20 23 01/03/2023 BMP, serum or plasm a CRE 1 Not Available [facility] [address], [address], 01/03/2023 13:17:08 01/04/20 23 01/03/2023 BMP, serum or plasm a GLU 439 Not Available [facility] [address], [address], 01/03/2023 13:17:08 01/04/20 23 01/03/2023 BMP, serum or plasm a K+ 4.6 Not Available [facility] [address], [address], 01/03/2023 13:17:08 01/04/20 23 01/03/2023 BMP, serum or plasm a Na+ 136 Not Available [facility] [address], [address], 01/03/2023 13:17:08 01/04/20 23 01/03/2023 BMP, serum or plasm a tCO2 27 Not Available [facility] [address], [address], 01/03/2023 13:17:08 01/04/20 23 01/03/2023 gluco se, finge rsjoanne k, blood Blood Glucose: mg/dl 515 Not Available [facility] - [facility] [address] [place] [address], [phone], 01/03/2023 13:06:57 Result Notes None recorded. Medical [...] Address Organization Details Last Updated DateTime 01/03/2023 864020.37 [address] Ana Springer [address] [place] [address],[address], [place], [address], [place] [facility] [employer] [facility] 01/03/2023 13:00:08 Social History None recorded. Functional Status None recorded. Mental Status None recorded. Family History Nothing Reported. Medical History No medical history recorded. Gynecological HistoryNo gynecological history recorded. Obstetrics History GPAL:G 0 P 0 0 0 0 Past Encounters Encounter ID Performer Location Encounter Start Date Encounter Closed Date Diagnosis/Indication Diagnosis SNOMED-CT Code Diagnosis ICD10 Code Diagnosis Note [id number] Cinthya Bowers MD [facility] [address] [place] [phone] 01/03/2023 12:55:53 01/04/2023 09:10:33 Osteomyelitis 10019930 M86.9 w/ open wound 4 th toe- -patient does not have a wound care appointmen t until 01/09/2023 and she has an appointmen t with her PCP 01/10. They could not get into see a supercalender operator until February- advised to discuss with PCP [...] loose gauze dressing twice a day. Hyperglycemia [id number] R 73.9 stay well hydrated w/ SF [...] Weller Member ID Guarantor Name 01/03/2023 1 [facility] - DOS ON OR AFTER 2022 - DUAL ELIGIBLE - CORRECTION OPTIONS AND ONE CARE (MEDICARE REPLACEMENT/AD VANTAGE - HMO) Dora Fernandez [id number] Dora Fernandez Notes Date Note Type Note Provider Name and Address Organization Details Recorded Time 01/03/2023 text/html HPI: Patient HX: Anemia,HTN, Obesity........... .................. .................. .................. .................. .................. .................. .................. .... CRC Nursing Assessment: Comments: CRC RN did not require any additional information to process this visit. .................. .................. .................. .................. .................. .................. .................. ............... Traveling Nurse Note From Gabriella Agrawal: Community Traveling Nurse Curt Agrawal CCA1 dispatched [place] for a 52 yof in need of wound care/assessment. Upon arrival, the pt was ambulatory w/ a limp, BAILON X4, in no apparent distress. Her daughter/fish and wildlife biologist translated for her (Swazi speaking only). She stated that she noticed [...] was informed she could not get a supercalender operator appointment until Monday. She has an appointment with wound care outpatient on 01/09 and an appointment with her PCP on 01/10/2023 Cinthya Bowers MD [address] [place] [address],[address], [place], [phone], [employer] 01/04/2023 10:42:10 OBGyn Episode No OBEpisode recorded.
== END 2024-07-08 10:44 | disposition home or self-care (01) ==
PROVIDERS: PCP Internal Medicine; Visit Provider Surgery
DX: E11.621 Type 2 diabetes mellitus with foot ulcer (principal); L97.509 Non-pressure chronic ulcer of other part of unspecified foot with unspecified severity
CPT/HCPCS: 99212

== ENCOUNTER → 2024-07-08 09:59 | Outpatient (BNVA) | payer OTHER, SELFPAY | PROVIDERS: PCP Internal Medicine; Visit Provider Surgery | DX: E11.621 Type 2 diabetes mellitus with foot ulcer (principal); L97.519 Non-pressure chronic ulcer of other part of right foot with unspecified severity; Z89.421 Acquired absence of other right toe(s) | CPT/HCPCS: 99212 ==

== ENCOUNTER 2025-01-27 09:00 | Outpatient (REF) | payer OTHER, SELFPAY ==
--- OUTSIDE RECORDS SUMMARY | 2025-01-24 05:00 | XMS_ITS ---
[facility] Organization [facility] marie Woodson Address [address] [place] [address] Care Team Providers Care Puppet Master Name Role Phone Garry Zuleta MD, Edwin Primary Care Provide r Unavailable Cristofer Hilario Unavailable [phone] Allergies No Known Allergies REASON FOR VISIT At Risk Footcare, Open sore Medications Medication SIG (Take, Route, Frequency, Duration) Notes Start Date End Date Status OXcarbazepine 300 MG TAKE 1 TABLET BY MOUTH TWICE DAILY IN THE MORNING AND IN THE EVENING Oral; Duration: 30 Active Omeprazole 20 MG 1 capsule 30 minutes before morning meal Orally Once a day; Duration: 30 day(s) 08/12/2019 Active Neurontin 300 MG 1 capsule Orally Once a day; Duration: 30 day(s) Active Lisinopril 10 MG 1 tablet Orally Once a day; Duration: 30 day(s) 08/12/2019 Active Lexapro 10 MG 1 tablet Orally Once a day; Duration: 30 day(s) Active Colace 100 MG 1 capsule as needed Orally Once a day; Duration: 30 day(s) Active buPROPion HCl ER (XL) 300 MG TAKE 1 TABLET BY MOUTH EVERY MORNING Oral; Duration: 30 Active Fluticasone Propionate 50 MCG/ACT 1 spray in each nostril Nasally Once a day; Duration: 30 day(s) Active Escitalopram Oxalate 10 MG TAKE 1 TABLET BY MOUTH AT BEDTIME Oral; Duration: 30 Active Glucose 4 GM as directed Orally Active Aspirin EC 81 MG as directed Orally 08/12/2019 Active Artificial Tears 0.1-0.3 % as directed Ophthalmic Active Acarbose 50 MG as directed Orally Active Ozempic Active Toujeo Max SoloStar 40 units bedtime Active Doxycycline Hyclate 100 MG 1 tablet Orally Once a day; Duration: 10 day(s) Not-Taking Augmentin 500-125 MG 1 tablet Orally every 8 hrs; Duration: 7 day(s) Not-Taking Gabapentin 300 MG TAKE 1 CAPSULE BY MOUTH TWICE DAILY IN THE MORNING AND AT BEDTIME Oral; Duration: 30 Not-Taking traZODone HCl 50 MG 1 tablet at bedtime as needed Orally Once a day; Duration: 30 day(s) Not-Taking Trulicity Not-Taking Ammonium Lactate 12 % 1 application Externally Twice a day; Duration: 30 days Active zzzCompression Stockings 20-30mm Hg . . .; Duration: . A ctive Trulicity 0.75 MG/0.5ML as directed Subcutaneous Not-Taking NovoLOG 100 UNIT/ML as directed Subcutaneous PRN Active Extra Depth Orthopedic Shoes (1 Pair) with Customized Heat Molded Multidensity Innersoles (3 Pair) as directed Dx: NIDDM/Polyneuropathy (E11.42), Hammertoe Foot Deformity (M20.41,M20.42), Preulcerative Skin Lesion(s) (L85.1 Active traMADol HCl 50 MG 1 tablet as needed Orally Once a day Active Simvastatin 10 MG 1 tablet in the evening Orally Once a day; Duration: 30 day(s) 08/12/2019 Active flonase 50 mcg/act A ctive Vitamin D3 50 MCG (2000 UT) TAKE 1 CAPSULE BY MOUTH EVERY MORNING Oral; Duration: 30 Active Social History Tobacco Use: Social History Observation Description Date Details (start date - stop date) Never Smoker NA - NA Tobacco use other than smoking: Question Answer Notes Are you an other tobacco user? No Tobacco Control (Standard) Question Answer Notes Tobacco use: Nonsmoker Additional Findings: Tobacco non-user Current no nsmoker AUDIT-C (Standard) Question Answer Notes Did you have a drink containing alcohol in the p ast year? No Points 0 Interpretation Negative Vital Signs Height 5ft9in in 01/24/2025 Weight 360 lbs 01/24/2025 BMI 53.16 kg/m2 01/24/2025 Blood pressure systolic 128 mm Hg 01/25/20 25 Blood pressure diastolic 65 mm Hg 025 Procedures Procedure Date Ordered Date Performed Result Body Sit e 38203-DUSMJVD NAIL, 6 OR MORE 01/24/2025 N/A 02197-[id number] SKIN/TISSUE 01/24/2025 N/A 04980-KMSE SKIN LESIONS, OVER 4 01/24/2025 N/A Encounters Encounter Location Date Provider Diagnosis [facility] [address] [address] 01/24/2025 Cristofer Hilario Type 2 diabetes mellitus with diabetic polyneuropathy E11.42 ; Tinea unguium B35.1 and Neuropathic ulcer of right foot with fat layer exposed L97.512 Assessments Encounter Date Diagnosis (ICD Code) Assessment Notes Treatment Notes Treatment Clinical Notes Section Notes 01/24/2025 Type 2 diabetes mellitus with diabetic polyneuropathy (ICD-10 - E11.42) 01/24/2025 Tinea unguium (ICD-10 - B35.1) 01/24/2025 Neuropathic ulcer of right foot with fat layer exposed (ICD-10 - L97.512) Response to treatment - Unresolved Patient Educated with: WOUND CARE INSTRUCTIONS. pdf (WOUND CARE INSTRUCTIONS. pdf) Plan Of Treatment Treatment Notes Assessment Notes Neuropathic ulcer of right f oot with fat layer exposed Patient Educated with: WOUND CARE INSTRUCTIONS.pdf (WOUND CARE INSTRUCTIONS.pdf) Pending Test Test Name Order Date [id number] NAIL, 6 OR MORE 01/24/2025 [id number] SKIN/TISSUE 01/24/2025 [id number] SKIN LESIONS, OVER 4 01/25/20 Next Appt Details Follow Up: 2 Months, Reason: Provider Name:Cristofer Hilario , 05/13/2025 01:45:00 PM, [address] [place] [address], [phone], Procedure Notes * Category Sub-Category Detail Notes Debride Nail 6-10 Nail debridement Due to the cl inical pathology outlined in the exam findings, performance of this nail treatment is medically necessary as its management by an unskilled/untrained nonprofessional would put this patients foot and overall health at risk. Therefore, debridement to affected nail(s), as described in exam ( TA, T1, T2, T3, T4, T5, T8, T9 ), was performed exclusively by the physician of record to reduce/remove overall nail length, girth, thickness, subungual debris, and necrotic tissue, by manual and/or electrical means through the use of a nail nipper and/or dremel-type crankshaft grinder, to a more viable healthy nail plate or bed tissue 6-10 nails in total. Silver nitrate was used for any petechial bleeding as necessary. Definitive antifungal treatment options, both pharmaceutical and surgical, have been reviewed and discussed with the patient. The patient solely prefers the use of intermittent/as needed professional debridement services for their nail condition and understands the need for additional periodic treatments to maintain effectiveness in symptomatic relief - 88788 Debride skin and subQ Open wound NEUROPATHY : Physician of record performed open wound selective debridement of devitalized necrotic/nonviable soft tissue, fibrin, exudate, epidermis, dermis, thru skin and subcutaneous fat tissue, first 20 sq cm or less, using sharp dissection with sterile 15 blade, and/or tissue nippers. ANESTHESIA was not required due to presence of NEUROPATHY. Hemostasis was controlled through direct pressure. Sterile antibiotic dressing applied. Post debridement measurements: 25mm x 15mm x 3mm. Character of the wound post debridement is stable (08943) Keratoma Treatment Parring or Cutting o f Benign Hyperkeratotic Lesion(s) (-57) More than 4 Lesions - Due to the at risk nature of the patients medical condition as documented in the exam findings, performance of this keratoderma treatment is medically necessary as its management by an unskilled/untrained nonprofessional would put this patients foot and overall health at risk. Therefore, the benign hyperkeratotic lesions, ( 10 ) in total, locations as stated and described in the exam ( Medial plantar, IPJ, TA, Medial plantar, IPJ, T5, SUB MTH (s), 1, B/L, SUB MTH (s), 5, B/L , SUB 5th MTBase, B/L , Plantar, Heel(s), B/L ), were pared, and/or cut utilizing a sterile 15 blade, tissue nippers, and/or power dremel instrumentation by the physician of record - 96517 Progress Notes * Dora FERNANDEZDOB:[birth year] (54 yo F)Acc No.[id number]:01/24/2025 Progress Note Patient: Dk GARCIAth Provider: Emily Hilario DPM :1970 A ge:54 Y S ex:Female Date:01/24/2025 Address:[address] [place] [address], Eva avelar [phone] Pcp:Edwin Zuleta MD Subjective: * Chief Complaints: * A t Risk FootcareOpen sore * HPI: A t Risk footcare: Pt States Last PCP Visit: D ate 0 01/09/2025 S kin problems: Nature: O pen sore. Location: O utside, Bottom, Forefoot, Right. Treatments: [facility], Local care consisting of daily distilled water wound cleanse, topical antibiotic as recommended, application of sterile dressing, offloading/pressure reduction via rest, shoe modification, insert modification, accommodative padding, assisted ambulation via cane, and surgical debridement. * ROS: G eneral/Constitutional: Nausea d enies. V omiting d enies. H dottie Thirst d enies. L oss appetite d enies. C hills d enies. F atigue d enies.?Fever d enies. N ight Sweats d enies. U nexplained weight loss d enies. U nexplained weight gain d enies. H EENTM: Dentures d enies. D izziness d enies. G lasses/contacts a dmits. R etinopathy d enies. B lurred/double vision d enies. T MJ?denies. D ischarge/drainage d enies. I mplants d enies. S ore throat d enies. D ental implants d enies. H shashank of hearing d enies. D ifficulty chewing/swallowing/speaking d enies. N ose bleeds d enies. S ore mouth d enies. ? R espiratory: On Oxygen d enies. P neumonia/pleurisy d enies.?Bronchitis d enies. E mphysema d enies. C oughing d enies. C ough blood?denies. S hortness of breath d enies. W heezing d enies. C ardiovascular: Pacemaker d enies. M TECHNICAL BUSINESS ANALYST d enies. W PW d enies. C HF d enies. H eart attack d enies. S eptal defect d enies. R apid beat d enies. C hest pain d enies. A trial Fib. d enies. M urmur/Palpitations d enies. G astrointestinal: Hemorrhoids d enies. S tomach/Abdominal pain d enies. D ark blood stool d enies. I rritable bowel d enies. C onstipation d enies. D iarrhea d enies. H ematology: Swelling a dmits. C lots d enies. V aricose Veins a dmits. B ruising d enies. B leeding problem d enies. G enitourinary: Blood urine d enies. F requent/Painfu/urination/bladder control d enies. K idney stones d enies. I nfection (UTI) d enies. N ephropathy d enies. s ex trans dis (STD) d enies. P rostate d enies. M usculoskeletal: Hammertoes a dmits. B unions d enies. B ack Pain d enies. M uscle Cramps/ Resting d enies. M uscle cramps / walking d enies.?Generalized aches and pains d enies. W eakness d enies. I nteg.: [place]an d enies. S cars d enies. C orns/calluses?admits. I ngrown nails a dmits. P ainful nails d enies. O pen Sores d enies. R ashes d enies. N eurologic: Difficulty sleeping d enies. B rain disorder d enies. N umbness a dmits. B alance trouble d enies. C onfusion d enies. F ainting/blackouts d enies. T ingling a dmits, bilateral lower extremities, that is moderate. T remors d enies. * Medical History: * Surgical History: A mputation, T6, T7 * Hospitalization/Major Diagno stic Procedure: [facility] ER- infection 06/2024 * Family History: M other: alive, foot problems, diagnosed with Other malignant neoplasm of unspecified site, Diabetic - NIDDM, Unspecified essential hypertension, Unspecified heart disease, Unspecified cerebral artery occlusion with cerebral infarction, Family history of arthritis. F ather: , diagnosed with Diabetic - NIDDM, Unspecified essential hypertension. S iblings: alive. S pouse: alive. * Social History: T obacco Use: T obacco use other than smoking A re you an other tobacco user? N o Tobacco Control (Standard) T obacco use: N onsmoker A dditional Findings: Tobacco non-user C urrent nonsmoker D rugs/Alcohol: D rugs H ave you used drugs other than those for medical reasons in the past 12 months? N o M iscellaneous: C affeine: yes, frequency:, 2-3 cups per day. Children: yes, 1. Exercise: yes, walking, housework. Marital status: . Occupation: retired,. D rug/Alcohol: A AYDEE-C (Standard) D id you have a drink containing alcohol in the past year? N o P oints 0 I nterpretation N egative * Medications: Saima Dorantes , Notes to Pharmacist: 40 units bedtimeOzempic Acarbose 50 MG Tablet as directed Orally Artificial Tears 0.1-0.3 % Solution as directed Ophthalmic Aspirin EC 81 MG Tablet Delayed Release as directed Orally buPROPion HCl ER (XL) 300 MG Tablet Extended Release 24 Hour TAKE 1 TABLET BY MOUTH EVERY MORNING Oral Colace 100 MG Capsule 1 capsule as needed Orally Once a day Glucose 4 GM Tablet Chewable as directed Orally Escitalopram Oxalate 10 MG Tablet TAKE 1 TABLET BY MOUTH AT BEDTIME Oral Fluticasone Propionate 50 MCG/ACT Suspension 1 spray in each nostril Nasally Once a day Lexapro 10 MG Tablet 1 tablet Orally Once a day Lisinopril 10 MG Tablet 1 tablet Orally Once a day Neurontin 300 MG Capsule 1 capsule Orally Once a day Omeprazole 20 MG Capsule Delayed Release 1 capsule 30 minutes before morning meal Orally Once a day OXcarbazepine 300 MG Tablet TAKE 1 TABLET BY MOUTH TWICE DAILY IN THE MORNING AND IN THE EVENING Oral Simvastatin 10 MG Tablet 1 tablet in the evening Orally Once a day traMADol HCl 50 MG Tablet 1 tablet as needed Orally Once a day Vitamin D3 50 MCG (2000 UT) Capsule TAKE 1 CAPSULE BY MOUTH EVERY MORNING Oral flonase 50 mcg/act nasal spray zzzCompression Stockings 20-30mm Hg 1 pair closed toe- knee high . . . Ammonium Lactate 12 % Cream 1 application Externally Twice a day Extra Depth Orthopedic Shoes (1 Pair) with Customized Heat Molded Multidensity Innersoles (3 Pair) as directed Dx: NIDDM/Polyneuropathy (E11.42), Hammertoe Foot Deformity (M20.41,M20.42), Preulcerative Skin Lesion(s) (L85.1 NovoLOG 100 UNIT/ML Solution as directed Subcutaneous , Notes to Pharmacist: PRNTaking Maria D Dorantes , Notes to Pharmacist: 40 units bedtimeTaking Ozempic Taking Acarbose 50 MG Tablet as directed Orally Taking Artificial Tears 0.1-0.3 % Solution as directed Ophthalmic Taking Aspirin EC 81 MG Tablet Delayed Release as directed Orally Taking buPROPion HCl ER (XL) 300 MG Tablet Extended Release 24 Hour TAKE 1 TABLET BY MOUTH EVERY MORNING Oral Taking Colace 100 MG Capsule 1 capsule as needed Orally Once a day Taking Glucose 4 GM Tablet Chewable as directed Orally Taking Escitalopram Oxalate 10 MG Tablet TAKE 1 TABLET BY MOUTH AT BEDTIME Oral Taking Fluticasone Propionate 50 MCG/ACT Suspension 1 spray in each nostril Nasally Once a day Taking Lexapro 10 MG Tablet 1 tablet Orally Once a day Taking Lisinopril 10 MG Tablet 1 tablet Orally Once a day Taking Neurontin 300 MG Capsule 1 capsule Orally Once a day Taking Omeprazole 20 MG Capsule Delayed Release 1 capsule 30 minutes before morning meal Orally Once a day Taking OXcarbazepine 300 MG Tablet TAKE 1 TABLET BY MOUTH TWICE DAILY IN THE MORNING AND IN THE EVENING Oral Taking Simvastatin 10 MG Tablet 1 tablet in the evening Orally Once a day Taking traMADol HCl 50 MG Tablet 1 tablet as needed Orally Once a day Taking Vitamin D3 50 MCG (2000 UT) Capsule TAKE 1 CAPSULE BY MOUTH EVERY MORNING Oral Taking flonase 50 mcg/act nasal spray Taking zzzCompression Stockings 20-30mm Hg 1 pair closed toe- knee high . . . Taking Ammonium Lactate 12 % Cream 1 application Externally Twice a day Taking Extra Depth Orthopedic Shoes (1 Pair) with Customized Heat Molded Multidensity Innersoles (3 Pair) as directed Dx: NIDDM/Polyneuropathy (E11.42), Hammertoe Foot Deformity (M20.41,M20.42), Preulcerative Skin Lesion(s) (L85.1 Taking NovoLOG 100 UNIT/ML Solution as directed Subcutaneous , Notes to Pharmacist: PRNNot-Taking/PRNTrulicity 0.75 MG/0.5ML Solution Pen-injector as directed Subcutaneous Trulicity Augmentin 500-125 MG Tablet 1 tablet Orally every 8 hrs Doxycycline Hyclate 100 MG Tablet 1 tablet Orally Once a day Gabapentin 300 MG Capsule TAKE 1 CAPSULE BY MOUTH TWICE DAILY IN THE MORNING AND AT BEDTIME Oral traZODone HCl 50 MG Tablet 1 tablet at bedtime as needed Orally Once a day Medication List reviewed and reconciled with the patientNot-Taking/PRN Trulicity 0.75 MG/0.5ML Solution Pen-injector as directed Subcutaneous Not-Taking/PRN Trulicity Not-Taking/PRN Augmentin 500-125 MG Tablet 1 tablet Orally every 8 hrs Not- Taking/PRN Doxycycline Hyclate 100 MG Tablet 1 tablet Orally Once a day Not-Taking/PRN Gabapentin 300 MG Capsule TAKE 1 CAPSULE BY MOUTH TWICE DAILY IN THE MORNING AND AT BEDTIME Oral Not-Taking/PRN traZODone HCl 50 MG Tablet 1 tablet at bedtime as needed Orally Once a day Medication List reviewed and reconciled with the patient * Allergies: N .K.D.A.yes[Allergies Verified] Objective: * Vitals: H t:5ft9in, Wt:360, BMI:53.16, Shoe size:12.5, BP:128/65mm Hg, BS:125, Ht-cm: 175.26 cm, Wt-k.29 kg. * P ast Orders: L ab:HEMOGLOBIN A1C (GLYCOHEMOGLOBIN) (Order Date - 01/09/2025) (Collection Date & Time - 01/24/2025 09:03 AM) Value Reference Range HEMOGLOBIN A1C % (HH) 7.2 * Examination: O phthalmology Referral: DIABETES EYE EXAM P rocedure Performed: Eh Garcia ate of Exam Performed 0 07/04/2024 D iabetic Retinopathy Screening: Y esteban R etinal Screening Performed: Eh orellana F indings of Diabetic Eye Exam: n o retinopathy N eurological: SENSORY: N eurological exam demonstrates a loss of protective sensation by an absence of tested sensitivity to 5.07 [place]-Manjit monofilament at 2 or more sites out of 5 total locations, each foot. N ails: NAILS are: E longated, overgrown, dystrophic, lytic, greater than 3mm thick, discolored and friable with crumbly malodorous subungual debris, TA, T1, T2, T3, T4, T5, T8, T9, A MPUTATION T6, T7. D ermatologic: SKIN FINDINGS: S kin exam reveals Keratotic lesion(s) located at, Medial plantar, IPJ, TA, Medial plantar, IPJ, T5, SUB MTH (s), 1, B/L, SUB MTH (s), 5, B/L , SUB 5th MTBase, B/L , Plantar, Heel(s), B/L. ULCER: LOCATION,Lateral,Plantar,5 MTH, RIGHT, SIZE,STILL, 22mm X 12mm X 3mm, BASE, fibro-granular, RIM, hyperkeratotic, UNDERMINING, mild, TRACKING, Sub Q with Fat layer exposed, DRAINAGE, serosanguineous, moderate, NECROTIC TISSUE, loosely-adherent, yellow slough, MALODOR, absent, CALOR, absent, ERYTHEMA, absent. Assessment: * Assessment: 1. T ype 2 diabetes mellitus with diabetic polyneuropathy - E11.42 (Primary) 2 . T inea unguium - B35.1 3 . N europathic ulcer of right foot with fat layer exposed - L97.512 N otes :Response to treatment - Unresolved Plan: * Treatment: 2. N europathic ulcer of right foot with fat layer exposed P rocedure: [id number] SKIN/TISSUE Notes: Patient Educated with: WOUND CARE INSTRUCTIONS.pdf (WOUND CARE INSTRUCTIONS.pdf) * Procedures: D farzad Nail 6-10: Nail debridement D ue to the clinical pathology outlined in the exam findings, performance of this nail treatment is medically necessary as its management by an unskilled/untrained nonprofessional would put this patients foot and overall health at risk. Therefore, debridement to affected nail(s), as described in exam ( TA, T1, T2, T3, T4, T 5, T 8, T 9 ) , was performed exclusively by the physician of record to reduce/remove overall nail length, girth, thickness, subungual debris, and necrotic tissue, by manual and/or electrical means through the use of a nail nipper and/or dremel-type crankshaft grinder, to a more viable healthy nail plate or bed tissue 6-10 nails in total. Silver nitrate was used for any petechial bleeding as necessary. Definitive antifungal treatment options, both pharmaceutical and surgical, have been reviewed and discussed with the patient. The patient solely prefers the use of intermittent/as needed professional debridement services for their nail condition and understands the need for additional periodic treatments to maintain effectiveness in symptomatic relief - 99940. D ebride skin and subQ: Open wound N EUROPATHY: Physician of record performed open wound selective debridement of devitalized necrotic/nonviable soft tissue, fibrin, exudate, epidermis, dermis, thru skin and subcutaneous fat tissue, first 20 sq cm or less, using sharp dissection with sterile 15 blade, and/or tissue nippers. ANESTHESIA was not required due to presence of NEUROPATHY. Hemostasis was controlled through direct pressure. Sterile antibiotic dressing applied. Post debridement measurements: 25mm x 15mm x 3mm. Character of the wound post debridement is stable (01490).? K eratoma Treatment: Parring or Cutting of Benign Hyperkeratotic Lesion(s) ( -57) More than 4 Lesions - Due to the at risk nature of the patients medical condition as documented in the exam findings, performance of this keratoderma treatment is medically necessary as its management by an unskilled/untrained nonprofessional would put this patients foot and overall health at risk. Therefore, the benign hyperkeratotic lesions, ( 10 ) in total, locations as stated and described in the exam ( M edial plantar, I PJ, T A, M edial plantar, I PJ, T 5, S UB MTH (s), 1 , B /L, S UB MTH (s), 5 , B /L , S UB 5th MTBase, B /L , P lantar, H eel(s), B /L ) , were pared, and/or cut utilizing a sterile 15 blade, tissue nippers, and/or power dremel instrumentation by the physician of record - 29519. * Procedure Codes: 1 1042 DEBRIDE SKIN/TISSUE, Modifiers: XS 44788 DEBRIDE NAIL, 6 OR MORE, Modifiers: XS 18311 TRIM SKIN LESIONS, OVER 4, Modifiers: XS * Preventive Medicine: Counseling: U lcer: A detailed plan of care was AGAIN reviewed with the patient. We emphasized the fact that the patient takes on an active participating role in the treatment process and emphasized to them that they are an included, valued, and important member of the wound healing team in order to reach an expedient successful outcome. The patient agreed to follow their medically recommended diet while increasing their protein intake if safely able to do so, maintain proper bodily hydaration, abide by weight-bearing restrictions at all times, quit all current smoking habits if any, and diligently follow any/all dressing change instructions. It was clearly made known to the patient that if they fail to do their part, they will likely extend their course of treatment as well as possibly increase their risk of adverse events including amputation. The patient was instructed on importance of proper wound care consisting of pressure reduction, and proper maintainance of a moist wound environment. The patient is to cleanse the wound with warm soapy water/peroxide/saline, or betadine BID based on product availability. The patient is to apply Antibiotic RECOMMENDED BY WOUND CARE to the wound and cover with a DSD as directed. The patient was instructed to change dressings according to orders, or PRN saturation, leaks. The patient was instructed to monitor and report any signs or symptoms of infection or any untoward reactions. Precautions Taken: Offloading/Pressure reduction via rest/ limited activity to essential to daily life only, cane, shoe modification, accommodative padding, sharp debridement, and take/apply medication as directed. THE GOALS of wound debridement to remove devitilized tissue, decrease risk for infection, promote wound healing and prevent further complication were discussed/reviewed. Debridement frequency as indicated, CONT Referral to Wound Care Center due to pedal risk of limb/life, Alicia. Recomended surgical removal of 5th MTH for wound closure. Patients daughter to speak to [facility] next week regarding such. * Follow Up: 2 Months * Images: * Sign off status: Completed true * Provider: Emily Hilario DPM Date: 01/24/2025 Generated for Joseph aokley/Luis/Autumn on: 01/27/2025 09:24 AM EDT History and Physical Notes * HPI (History of Present Illness) Category Sub-Category Detail Notes Category Not es Skin problems Nature: Open sore Location: Outside, Bottom, For efoot, Right Treatments: [facility] Wound Care, Local care consisting of daily distilled water wound cleanse, topical antibiotic as recommended, application of sterile dressing, offloading/pressure reduction via rest, shoe modification, insert modification, accommodative padding, assisted ambulation via cane, and surgical debridement At Risk footcare Pt States Last PCP Visit: Date: 5 Examination Category Sub-Category Detail Notes Category Not es Neurological SENSORY: Neurological exa m demonstrates a loss of protective sensation by an absence of tested sensitivity to 5.07 [place]-Manjit monofilament at 2 or more sites out of 5 total locations, each foot Dermatologic SKIN FINDINGS: Skin exam reveal s Keratotic lesion(s) located at, Medial plantar, IPJ, TA, Medial plantar, IPJ, T5, SUB MTH (s), 1, B/L, SUB MTH (s), 5, B/L , SUB 5th MTBase, B/L , Plantar, Heel(s), B/L ULCER: LOCATION,Lateral,Robert ntar,5 MTH, RIGHT, SIZE, STILL, 22mm X 12mm X 3mm, BASE, fibro-granular, RIM, hyperkeratotic, UNDERMINING, mild, TRACKING, Sub Q with Fat layer exposed, DRAINAGE, serosanguineous, moderate, NECROTIC TISSUE, loosely-adherent, yellow slough, MALODOR, absent, CALOR, absent, ERYTHEMA, absent Ophthalmology Referral DIABETES EYE EXAM Procedure Perform ed:: Yes Date of Exam Performed: 07/04/2024 Diabetic Retinopathy Screening:: Yes Retinal Screening Performed:: Yes Findings of Diabetic Eye Exam:: no retin opathy Nails NAILS are: Elongated, overg rown, dystrophic, lytic, greater than 3mm thick, discolored and friable with crumbly malodorous subungual debris, TA, T1, T2, T3, T4, T5, T8, T9, AMPUTATION T6, T7
--- OUTSIDE RECORDS SUMMARY | 2025-01-27 09:24 | XMS_ITS | Clinical Summary ---
Author Organization [facility] Address [address] [facility] [address] [place] [address] Phone Care Team Providers Care Steam Presser Name Role Phone Edwin Castañeda MD Primary Care Provider Unav ailable Allergies No known active allergies Medications aspirin (ST JUAN) 81 MG EC tablet Take 1 tablet by mouth 1 (one) time each day Active buPROPion XL (WELLBUTRIN XL) 300 MG 24 hr tablet Take 1 tablet by mouth 1 (one) time each day Active Cholecalcifero l 50 MCG (1999 UT) capsule Take 1 capsule by mouth 1 (one) time each day Active escitalopram (LEXAPRO) 10 MG tablet Take 1 tablet by mouth 1 (one) time each day Active gabapentin (NEURONTIN) 300 MG capsule Take 1 capsule by mouth 2 (two) times a day Active Insulin Glargine, 1 Unit Dial, (Tomirela Dorantes) 300 UNIT/ML solution pen-injector Active lisinopril (PRINIVIL,ZEST RIL) 10 MG tablet Take 1 tablet by mouth 1 (one) time each day Active OXcarbazepine (TRILEPTAL) 300 MG tablet Take 1 tablet by mouth 2 (two) times a day Active simvastatin (ZOCOR) 10 MG tablet Take 1 tablet by mouth 1 (one) time each day Active ammonium lactate (AMLACTIN) 12 % cream APPLY TOPICALLY TO FEET TWICE DAILY DIRECTED 1 Active NovoLOG FLEXPEN 100 UNIT/ML injection INJECT 8-14 UNITS SUBCUTANEOUSLY THREE TIMES DAILY DIRECTED 1 Active omeprazole (PriLOSEC) [address] capsule Take 20 mg by mouth 1 Active Ozempic, 1 MG/DOSE, 2 MG/1.5ML solution pen-injector INJECT 1 MG (0.75 ML) SUBCUTANEOUSLY EVERY WEEK 1 Active glucose 4 g chewable tablet CHEW 3 TABLETS BY MOUTH EVERY 15 MINUTES NEEDED FOR HYPOGLYCEMIA UNTIL SYMPTOMS RESOLVED 1 Active eszopiclone (LUNESTA) 3 MG tablet Take 3 mg by mouth at night if needed 2 Active Active Problems Problem Noted Date Diagnosed Date Polyneuropathy due to type 2 diabetes mellitus 0 10/13/2022 Acquired hammer toe of left foot 10/13/2022 Hypertension 10/13/2022 Sebaceous cyst 10/13/2022 Type 2 diabetes mellitus 10/13/2022 Chest pain 08/09/2022 Overview (10/13/2022): Last Assessment & Plan: Previous visit pt c/o intermittent chest discomfort that only presents when she is being active , never at rest, denies any other symptoms, No nausea, no sob, no dyspnea, no sensation of impending doom. Symptoms suggestive of Angina. Discussed with patient and daughter that if she is to experience chest pain again, she needs to present herself immediately to the ER . they both verbalized understating. In the meantime I placed a referral for a Cardiology evaluation cortney. ( it was supposed to be done the following day). Today pt's daughter tells me the Professor Of Special Education Dr Mckeon cancelled the appointment. EKG today shows: sinus arrythmia, peaked T waves. I discussed findings with Cardiology ( Dr. Penaloza in the absence of Dr Mckeon , who requested I sent him the patient information to schedule an appointment for patient cortney ) Pt reports compliance with her daily aspirin and reports her blood sugars are controlled. Cholelithiasis without obstruction 08/08/2022 Non-pressure chronic ulcer o f other part of right foot limited to breakdown of skin 08/08/2022 Vascular insufficiency 08/08/2022 Anemia of chronic disease 10/19/2020 Proteinuria 10/19/2020 History of amputation of foot 04/16/2018 Depressive disorder 11/06/2012 Obesity 06/25/2012 Overview (10/13/2022): Last Assessment & Plan: Patient has been counseled and educated about diet and exercise. Personal goal of weight loss discussedPatient has comorbidity of: DM, HTN, Pt has the information about the Comprehensive weight management program Benign essential hypertension 06/19/1961 Overview (10/13/2022): Last Assessment & Plan: Patient here for a f/u BP remains controlled She is currently on a regimen of: Lisinopril 10 mg po daily Given adequate blood pressure control will continue with current medical regimen. Most recent electrolytes, done on: 02/25/2022 wnl patient advised to adhere to a low sodium diet, encouraged about medication compliance, counseled about weight loss. Mixed hyperlipidemia 06/19/1961 Overview (10/13/2022): Last Assessment & Plan: Patient here for a f/u Most recent lipid profile from: 02/25/2022 shows a total cholesterol of: 161 triglycerides of: 71 HDL of: 70 and LDL of: 76 Currently on a regimen of: Simvastatin 10 mg po qhs. . Lipids are at target For now will continue with current regimen. Pt will have a repeat Lipid profile advised to try to adhere to a low cholesterol diet, counseled and educated about diet and exercise, Patient encouraged to come up with a personal goal for weight loss. Resolved Problems Problem Noted Date Diagnosed Date Resolved Date Chronic kidney disease stage 1 10/19/2020 02/07/2022 Immunizations Immunization Administration Dates Next Due Influenza (IM) Preservative Free 11/18/2019,07/2018 Influenza Split 03/22/2013,03/07/2012 Influenza, Quadrivalent, Pre servative Free 04/26/2022,07/20/2021,03/13/2020,04/02,03/30/2017,07/30/2015 Influenza, Quadrivalent, Wit h Preservative 02/28/2019,04/26/2016 Influenza, Unspecified 05/01/2014,04/22/2011 Moderna SARS-COV-2 09/08/2020,08/11/2020 Pneumococcal Polysaccharide 02/23/2017, 6 TD Preservative Free 04/26/2016 Td 11/23/2005 Family History Medical History Relation Comments Dementia Mother Diabetes Mother Gout Mother Heart disease Mother Hypertension Mother Stroke Mother Relation Status Comments Mother Social History Tobacco Use Types Packs/Day Years Used Date Smoking Tobacco: Never Smokeless Tobacco: Never Tobacco Cessation:Counseling Given: Not Answered Alcohol Use Standard Drinks/Week Comments Yes 0 (1 standard drink = 0.6 oz pure alcohol) Alcoholic Drinks/day: Occasional social drink Comments Unknown Sex and Gender Information Value Date Recorded Sex Assigned at Not on file Legal Sex Female 4:59 PM EST Gender Identity Not on file Sexual Orientation Not on file Last Filed Vital Signs Vital Sign Reading Time Taken Comments Blood Pressure 124/59 10/13/2022 3:15 PM EDT Pulse 83 10/13/2022 3:15 PM EDT Temperature - - Respiratory Rate - - Oxygen Saturation 96% 10/13/2022 3:15 PM EDT Inhaled Oxygen Concentration - - Weight 152 kg (334 lb) 10/13/2022 3:15 PM EDT Height 175.3 cm (5' 9 ) 08/29/2019 12:00 PM EDT Body Mass Index 49.32 08/29/2019 12:00 PM EDT Plan of Treatment Health Maintenance Due Date Last Done Comments Breast Cancer Screening 1968 Hepatitis B Vaccine (1 of 3 - 19+ 3-dose series) 1987 Colorectal Cancer Screening: Annual FOBT 2017 Colorectal Cancer Screening: Colonoscopy 2017 Colorectal Cancer Screening: Sigmoidoscopy 2017 Pneumococcal Vaccine: 50+ Ye ars (3 of 3 - PCV) 02/23/2018 02/23/2017, 02/22/2006 Diabetes: Ophthalmology Exam 02/07/2022 Diabetes: Pedal Pulse Checked 02/07/2022 Diabetes: Sensory Foot Exam 02/07/2022 Diabetes: Visual Foot Exam 02/07/2022 Diabetes: Hemoglobin A1C 08/16/2023 023, 05/09/2023, 08/09/2022, Additional history exists Influenza Vaccine (#1) 2025 2, 07/20/2021, 03/13/2020, Additional history exists Pneumococcal Vaccine: Peds ( 0 to 5 Years) and At-Risk Patients (6 to 49 Years) Discontinued 02/23/2017, 02/22/2006 Procedures Procedure Name Priority Date/Time Associated Diagnosis Comments BLOOD PANEL (HC) Routine 06/23/2020 12:0 0 AM EST from Last 3 Months or Most Recently Relevant to Health Maintenance Results * (ABNORMAL) Blood Panel (06/23/2020 12:00 AM EST) Hemoglobin A1C 10.0(H) <5 % PVNMA 06/23/2020 us [facility] [id number] LICITED RESULTS Final Result PVNMA from Last 3 Months or Most Recently Relevant to Health Maintenance Insurance MCR ([id number]) MCR ([id number]) Care Teams Steam Presser Relationship Specialty Start Date End Date Edwin Castañeda MD PCP - General 06/29/20
--- OUTSIDE RECORDS SUMMARY | 2025-01-27 09:24 | XMS_ITS | Encounter Summary ---
Author Organization [employer] Address [address] [facility] [address] [place] [address] Care Team Providers Care Eligibility Technician Name Role Phone Edwin Kirk MD Primary Care Provide r Isa Curry PharmD Unavailable [phone] Encounter Details Date Type Department Care Team ([facility] st Contact Info) Description 10/12/2023 Orders Only [facility] [address] [place] [address] ProviderChasity MD Social History Tobacco Use Types Packs/Day Years Used Date Smoking Tobacco: Never Passive Smoke Exposure: Never Smokeless Tobacco: Never Alcohol Use Standard Drinks/Week Comments Not Currently 0 (1 standard drink = 0.6 oz pur e alcohol) Housing Stability Answer Date Recorded What is your housing situation today? I have shahla andrade 10/16/[address] you li ve. Do you have problems with any of the following? None of the above 10/16/2023 Food Insecurity Answer Date Recorded Within the past 12 months, y ou worried that your food would run out before you got money to buy more: Never True 10/16/2023 Within the past 12 months,th e food you bought just didn't last and you didn't have enough money to get more: Never True Transportation Answer Date Recorded In the past 12 months, has l ack of transportation kept you from medical appts, meetings, work or from getting things needed for daily living? No 10/16/2023 Utilities Answer Date Recorded In the past 12 months, has t he electric, gas, oil or water company threatened to shut off services in your home? No 10/16/2023 Depression Answer Date Recorded Patient Health Questionnaire-2 Score 0 08/09/2022 Comments Unknown Sex and Gender Information Value Date Recorded Sex Assigned at Female 04/18/2022 10:18 AM EDT Legal Sex Female 10:18 AM EDT Gender Identity Female 04/18/2022 10:18 AM EDT Sexual Orientation Straight 04/18/2022 10 :18 AM EDT documented as of this encounter Plan of Treatment Upcoming Encounters Date Type Department Care Team (Late st Contact Info) Description 02/06/2025 10:30 AM EDT Medication Management [facility] [address] [place] [phone] Isa Curry PharmD [address] [place] [phone] 03/27/2025 10:00 AM EDT Office Visit [facility] [address] [place] [address] [phone] Edwin Kirk MD [address] [place] [address] [phone] documented as of this encounter Procedures Procedure Name Priority Date/Time Associated Diagnosis Comments HM COLONOSCOPY Routine 12/25/2018 7:41 AM EDT documented in this encounter Results * Hm Colonoscopy (12/25/2018 7:41 AM EDT) Historical Provider HEALTH MAINTENANCE Final Result documented in this encounter Visit Diagnoses Not on filedocumented in this encounter Care Teams Eligibility Technician Relationship Specialty Start Date End Date Edwin Kirk MD [address] [place] [address] [phone] PCP - General Internal Medicine 03/31/14 Isa Curry PharmD [address] [place] [address] [phone] Pharmacist Internal Medicine 09/05/24 [facility] 06/27/24 01/23/25 documented as of this encounter
[2025-01-27 12:11] LABS: Alanine Aminotransferase 17 U/L (0-31); Albumin Level 4.3 g/dL (3.5-5.0); Alkaline Phosphatase 103 U/L (39-117); Anion Gap 14 (12-20); Aspartate Amino Transferase 27 U/L (5-31); Blood Urea Nitrogen 28 mg/dL (9-16); Calcium 9.3 mg/dL (8.4-10.2); Carbon Dioxide 31 mmol/L (22-29); Chloride 102 mmol/L (96-108); Cholesterol 134 mg/dL (<200); Estimated Glomerular Filt Rate 41; HDL Cholesterol 61 mg/dL (>40); Potassium 4.5 mmol/L (3.3-5.1); Sodium 142 mmol/L (135-145); Total Protein 8.1 g/dL (6.5-8.0); Triglycerides 64 mg/dL (<150)
[2025-01-27 12:19] LABS: Microalbum/Creatinine Ratio Ur 10.1 ug/mg cr (<30)
== END 2025-01-27 09:01 | disposition home or self-care (01) ==
LOC: HO.HHCL 09:00
PROVIDERS: PCP Internal Medicine; Visit Provider Internal Medicine
DX: E11.610 Type 2 diabetes mellitus with diabetic neuropathic arthropathy (principal); Z79.4 Long term (current) use of insulin
CPT/HCPCS: 36415; 80053; 80061; 82043; 82570

== ENCOUNTER 2025-02-06 11:04 | Outpatient (REF) | payer OTHER, SELFPAY ==
--- OUTSIDE RECORDS SUMMARY | 2024-11-05 10:30 | XMS_ITS ---
Author Organization [facility] Address [address] [place] [phone] Care Team Providers Care Engine Testing Supervisor Name Role Phone Garry Zuleta MD, Edwin Primary Care Provide r Cristofer Owusu Unavailable [phone] Encounters Encounter Location Date Provider Diagnosis [address] [address] 11/05/2024 Cristofer Hilario Plan Of Treatment Next Appt Details Provider Name:Cristofer Hilario , 05/13/2025 01:45:00 PM, [address] [place] [address], [phone], Progress Notes * Dora FERNANDEZDOB:[birth year] (54 yo F)Acc No.[id number]:11/05/2024 Progress Note Patient: Tyler Dora MOSES Provider: Emily Hilario DPM :1970 A ge:54 Y S ex:Female Date:11/05/2024 Address:[address] [place] [address] [id number] Pcp:Edwin Zuleta MD Subjective: * Chief Complaints: [...] 11/05/2024 Generated for Joseph Rockwell on: 0 02/06/2025 12:41 PM EDT
--- NOTE | ~2025-02-06 | XR_ITS ---
EXAMINATION: XR FOOT, RIGHT CLINICAL INFORMATION: R/O OSTEOMYELITIS COMPARISON: June 24, 2024 TECHNIQUE: AP, lateral, and oblique views of the right foot. FINDINGS: Again noted is amputation of the third toe at the MTP joint. There is somewhat linear calcifications in the soft tissues extending between bone and skin surface lateral to the fifth metatarsal head. There is osteopenia. The cortical white line involving the medial fifth metatarsal head. There is minimal osteophyte formation involving the IP and MTP joint the great toe. Moderate marginal spurs are noted dorsal midfoot. Large enthesophytes are present calcaneus on the plantar fascial and Achilles tendon attachments. Mild to moderate vascular calcifications are present. XR/XR foot RT min 3V IMPRESSION: Erosive changes involving the medial head of the fifth metatarsal raise question of osteomyelitis. Stable moderate degenerative changes. Electronically signed by: Riley Dunaway MD 02/06/2025 12:38 PM EDT
--- OUTSIDE RECORDS SUMMARY | 2025-02-06 12:41 | XMS_ITS | Clinical Summary ---
Author Organization [facility] Address [address] [facility] [address] [place] [address] Phone Care Team Providers Care Welt Edge Rounder Name Role Phone Edwin Castañeda MD Primary [...] day). Today pt's daughter tells me the Lifter/Driver Dr Mckeon cancelled the appointment. EKG today [...] % PVNMA 06/23/2020 us [facility] [id number] LICITED RESULTS Final Result PVNMA from Last 3 Months or Most Recently Relevant to Health Maintenance Insurance MCR ([id number]) MCR ([id number]) Care Teams Welt Edge Rounder Relationship Specialty Start Date End Date Edwin Castañeda MD PCP - General 06/29/20
--- OUTSIDE RECORDS SUMMARY | 2025-02-06 12:41 | XMS_ITS | Encounter Summary ---
Author Organization [employer] Address [address] [facility] 7t [place] [address] Care Team Providers Care Geophysical Observer Name Role Phone Edwin Kirk MD Primary Care Provide r Isa Curry PharmD Unavailable Encounter Details Date Type Department Care Team ([facility] st Contact Info) Description 10/12/2023 Orders Only [facility] [address] [place] [address] ProviderChasity MD Social History Tobacco Use Types [...] Care Team (Late st Contact Info) Description 03/20/2025 9:30 AM EDT Medication Management [facility] [address] [place] [phone] Isa Curry PharmD [address] [place] [phone] 03/27/2025 10:00 AM EDT Office Visit [facility] [address] [place] [address] [phone] Edwin Kirk MD [address] [place] [address] [phone] documented as of this encounter Procedures Procedure Name Priority Date/Time Associated Diagnosis Comments HM COLONOSCOPY Routine 12/25/2018 7:41 AM EDT documented in this encounter Results * Hm Colonoscopy (12/25/2018 7:41 AM EDT) Historical Provider HEALTH MAINTENANCE Final Result documented in this encounter Visit Diagnoses Not on filedocumented in this encounter Care Teams Geophysical Observer Relationship Specialty Start Date End Date Edwin Kirk MD [address] [place] [address] [phone] PCP - General Internal Medicine 03/31/14 Isa Curry PharmD [address] [place] [address] [phone] Pharmacist Internal Medicine 09/05/24 [facility] 06/27/24 01/23/25 documented as of this encounter
[2025-02-06 13:11] LABS: MANUAL DIFF FLAG NO
[2025-02-06 13:22] LABS: Hematocrit 35.6 % (37.0-47.0); Hemoglobin 11.6 g/dl (12.0-16.0); Imm Gran Abs Auto 0.04 X10*3/uL (0.00-0.03); Imm Gran Pct Auto 0.6 % (0.0-0.4); Lymphocytes Absolute Auto 1.7 X10*3/uL (1.2-4.9); Mean Corpuscular HGB Conc 32.6 g/dl (31.0-35.0); Mean Corpuscular Hemoglobin 27.2 pg (27.0-33.0); Mean Corpuscular Volume 83.6 fL (80.0-98.0); NRBC Abs Auto 0.000 X10*3/uL (0.0-0.012); NRBC Pct Auto 0.0 /100WBC (0.0-0.2); Platelet Count 265 X10*3/uL (160-400); Red Blood Count 4.26 X10*6/uL (4.20-5.50); White Blood Count 6.6 X10*3/uL (4.8-10.8)
[2025-02-06 14:02] LABS: Hemoglobin A1C 169.6879 umol/L; Total Hemoglobin (HGBA1C) 3064.9413 umol/L
== END 2025-02-06 11:05 | disposition home or self-care (01) ==
LOC: HO.HHCL 11:04
PROVIDERS: Surgery Surgical Oncology; PCP Internal Medicine; Visit Provider Internal Medicine
DX: S91.301A Unspecified open wound, right foot, initial encounter (principal); Z13.1 Encounter for screening for diabetes mellitus
CPT/HCPCS: 36415; 73630; 82308; 83036; 85025; 85652; 86140

== ENCOUNTER → 2025-02-06 11:50 | Outpatient (BNV) | payer OTHER, SELFPAY | PROVIDERS: PCP Internal Medicine; Visit Provider Radiology Diagnostic Radiology | DX: M19.071 Primary osteoarthritis, right ankle and foot (principal) | CPT/HCPCS: 73630 ==

== ENCOUNTER 2025-02-11 08:33 | Outpatient (AMB) | payer OTHER, SELFPAY ==
--- OUTSIDE RECORDS SUMMARY | 2024-11-05 10:30 | XMS_ITS ---
Author Organization [facility] Address [address] [place] [phone] Care Team Providers Care Battery Tester Name Role Phone Garry Zuleta MD, Edwin Primary Care Provide r Cristofer Owusu Unavailable [phone] Encounters Encounter Location Date Provider Diagnosis [address] [address] 11/05/2024 Cristofer Hilario Plan Of Treatment Next Appt Details Provider Name:Cristofer Hilario , 05/13/2025 01:45:00 PM, [address] [place] [address], [phone], Progress Notes * Dora FERNANDEZDOB:[birth year] (54 yo F)Acc No.[id number]:11/05/2024 Progress Note Patient: Tyler Dora MOSES Provider: Emily Hilario DPM :1970 A ge:54 Y S ex:Female Date:11/05/2024 Address:[address] [place] [address] [id number] Pcp:Edwin Zuleta MD Subjective: * Chief Complaints: [...] 11/05/2024 Generated for Joseph Rockwell on: 0 02/11/2025 08:44 AM EDT
--- NOTE | 2025-02-11 08:44 | A.OFFVIS_ITS ---
Vital Signs 02/11/25 08:53 Height 5 ft 9 in Weight 346 lb BMI 51.1 BP 103/57 L Blood Pressure Location Rt brachial Position Sitting Pulse 92 Intake Visit Reasons: foot wound Intake Note: Patient here for follow up Rt foot wound. [facility]. Reports wound healing slowly. Currently on Amoxicillin course for infection noticed on foot X- ray. Patient c/o: television cameraman Dr. Hilario recommending [place] bunion removal. Patient awaiting for MRI (approved yesterday). Glass Unloading Equipment Tender Required: No Accompanied by: daughter Essence Allergies No Known Allergies Allergy (Unknown, Verified 02/11/25 08:49) Medication List - Last Reconciled 02/11/25 by Dylan Lim MD aspirin 81 mg PO DAILY atorvastatin 40 mg PO BEDTIME bisacodyl (Dulcolax (bisacodyl)) 10 mg (2 x 5 mg) PO BEDTIME blood sugar diagnostic (FreeStyle Lite Strips) As directed testing 4x daily. blood-glucose transmitter (APGR Green G6 Transmitter device) As directed one every 3 months bupropion HCl XL 300 mg PO DAILY celecoxib 200 mg PO BID cholecalciferol (vitamin D3) 2,000 units PO DAILY escitalopram oxalate 10 mg PO DAILY eszopiclone 3 mg PO BEDTIME PRN gabapentin 300 mg PO BID insulin aspart U-100 (Novolog FlexPen U-100 Insulin aspart) See Protocol units s ubcut TIDAC insulin glargine U-300 conc (Toujeo SoloStar U-300 Insulin) 40 units subcut BEDTIME lancets (TRUEplus Lancets) As directed lisinopril 10 mg PO DAILY metoprolol succinate ER 25 mg PO DAILY nitroglycerin 0.4 mg sublingual Q5M PRN omeprazole 20 mg PO DAILY@0630 oxcarbazepine 300 mg PO BID pen needle, diabetic (Pentips Pen Needle) As directed tirzepatide (Mounjaro) 5 mg subcut QWEEK HPI HPI foot wound: Details: 07/08/2509:07 Height 5 ft 9 in Weight 335 lb 4 oz BMI 49.5 HPI HPI Foot wound: Details: 54-year-old male with known diabetes, morbidly obese, here for follow-up for an open would and drainage on the right foot laterally. She has had this for the past 6 months. Her previous MRI did not show osteomyelitis She has been seeing a television cameraman and she was told that she probably should have a bunion oval. She had a recent x-ray which showed some erosive changes in the 5th toe. She has a known diabetic. She used to have elevated hemoglobin A1c up to 13. Her A1c now was around 7.5. She had been started on Mounjaro. She has a history of amputation of the 3rd toe and partial amputation of the 2nd toe on the same foot. She had a chronic ulcer on the 4th toe as well in the past but this had healed. [facility] Medical History (Updated 02/11/25 @ 09:07 by Dylan Lim MD) Foot ulcer, right Wound of foot Toe ulcer due to DM Arm swelling Restrictive lung disease Dyspnea on exertion Morbid obesity Gallstones Obesity due to excess calories Chronic kidney disease, stage 3 Charcot foot due to diabetes mellitus Depression Vitamin D deficiency Hyperlipidemia LDL goal <100 Hypertension Diabetic polyneuropathy Type 2 diabetes mellitus with chronic kidney disease Surgical History Hx of colonoscopy History of partial ray amputation of third toe of right foot Hx of wisdom tooth extraction History of partial amputation of toe (2018) History of total hysterectomy with bilateral salpingo-oophorectomy (BSO) Family History Father Type 2 diabetes mellitus Mother Type 2 diabetes mellitus Diverticulitis Hypertension Social History Household Members: Family Household Members Other:: , mother Housing: House Are you a primary child care specialist to a significant other at home: No Do you presently have visiting nurse or other home services: No Alcohol intake: former Patient Tobacco Use Status: Never used Tobacco service: No Review of Systems Const Denies chills and Denies fever(s) Card Denies chest pain, Denies dyspnea and Denies dyspnea on exertion Resp Denies cough, Denies dyspnea and Denies dyspnea on exertion GI Denies hematochezia and Denies change in bowel habits Denies hematuria Musc Reports abnormal gait, Denies back pain and Reports limited range of motion Neuro Reports abnormal gait, Denies focal weakness and Denies convulsions Psych Denies depression and Denies mood swings Physical Exam Vital Signs: Last Vital Signs Pulse 92 02/11/25 08:53 BP 103/57 L 02/11/25 08:53 BMI result Body Mass Index 51.1 Const Other: Morbidly obese General: comfortable and no acute distress Orientation/consciousness: patient oriented x3 Neck Neck: Yes no lymphadenopathy Resp Auscultation: clear to auscultation bilaterally Cardio Rhythm: regular rhythm GI Palpation (GI): Soft to palpation, nontender and no guarding Neuro General: patient oriented x3 Extrem Other: Superficial ulcer on the lateral aspect of the right foot, about 2 cm in widest dimension, clean, good granulation, no cellulitis, no pus Assessment & Plan Assessment & Plan (1) Foot ulcer, right: Code(s): L97.519 - Non-pressure chronic ulcer of other part of right foot with unspecified severity Category: Medical Plan: She has a foot ulcer on the lateral aspect which she has had for several months. This otherwise looks clean with a any cellulitic changes or any pus. This appears superficial. She says she had been started on antibiotics which she is to complete for 6 weeks I have recommended doing good wound care. I have changed her dressings. She can have dry dressings daily for now. He is here again in the office for a wound check in about 1 month. She is to continue with her current course of oral antibiotics. I counseled her on the benefits good blood sugar control, weight loss, and good wound care. Coding Level of Care Code Est Pt Level 3 (05477) Diagnoses Foot ulcer, right L97.519
--- OUTSIDE RECORDS SUMMARY | 2025-02-11 08:44 | XMS_ITS | Encounter Summary ---
Author Organization [employer] Address [address] [facility] [address] [place] [address] Care Team Providers Care Candle Extrusion Machine Operator Name Role Phone Edwin Kirk MD Primary Care Provide r Isa Curry PharmD Unavailable [phone] Reason for Visit * Reason Comments Med Refill Encounter Details Date Type Department Care Team ([facility] st Contact Info) Description 10/25/2024 Refill [facility] [address] [place] [address] Sherrie Carey, ANP [address] [place] [address] Diabetic polyneuropathy associated with type 2 diabetes mellitus (CMS/HCC) Social History Tobacco Use Types Packs/Day Years Used Date Smoking Tobacco: Never Passive Smoke Exposure: Never Smokeless Tobacco: Never Alcohol Use Standard Drinks/Week Comments Not Currently 0 (1 standard drink = 0.6 oz pur e alcohol) Depression Answer Date Recorded Patient Health Questionnaire-9 Score 13 07/17/2024 Patient Health Questionnaire-9 Score 13 07/17/2024 Last PHQ-9: Questionnaire Data Not on file 0 07/17/2024 Housing Stability Answer Date Recorded What is [...] Answer Date Recorded Patient Health Questionnaire-2 Score 3 07/17/2024 Internet Access Answer Date Recorded Internet Access Q1 No 07/17/2024 Internet Access Q2 My internet/Wi-Fi ac cess is not consistent or reliable 07/17/2024 Comments Unknown Sex and Gender Information Value [...] Description 03/20/2025 9:30 AM EDT Medication Management [facility] [address] [place] [phone] Isa Curry PharmD [address] [place] [phone] 03/27/2025 10:00 AM EDT Office Visit [facility] [address] [place] [phone] Edwin Kirk MD [address] [place] [phone] documented as of this encounter Goals Goal Patient Goal Type Associated Problems Recent Progress Patient-Stated? Author Keep fasting blood glucose between 70 and 130 Result Component Type 2 diabetes mellitus with diabetic neuropathic arthropathy, with long-term current use of insulin Worsening( 5:47 PM EDT) No Maximo Brito, Vinod documented as of this encounter Visit Diagnoses Diagnosis Diabetic polyneuropathy associated with type 2 diabetes mellitus (CMS/HCC) documented in this encounter Additional Health Concerns Assessment Noted Time PHQ-9 Depression Total Score: 13 025 10:20 AM EST documented as of this encounter Care Teams Candle Extrusion Machine Operator Relationship Specialty Start Date End Date Edwin Kirk MD [address] [place] [address] PCP - General Internal Medicine 03/31/14 Isa Curry PharmD [address] [place] [phone] Pharmacist Internal Medicine 09/05/24 [facility] 06/27/24 01/23/25 documented as of this encounter
--- OUTSIDE RECORDS SUMMARY | 2025-02-11 08:44 | XMS_ITS | Encounter Summary ---
Author Organization [employer] Address [address] [facility] 7[address] [place] [address] Care Team Providers Care Artificial Cherry Maker Name Role Phone Edwin Kirk MD Primary Care Provide r Isa Curry PharmD Unavailable [phone] Reason for Visit * Reason Comments Med Refill Encounter Details Date Type Department Care Team ([facility] st Contact Info) Description 10/25/2024 Refill [facility] [address] [place] [address] Sherrie Carey, ANP [address] [place] [address] Diabetic polyneuropathy associated with type 2 diabetes [...] Description 03/20/2025 9:30 AM EDT Medication Management [facility] [address] [place] [phone] Isa Curry PharmD [address] [place] [phone] 03/27/2025 10:00 AM EDT Office Visit [facility] [address] [place] [phone] Edwin Kirk MD [address] [place] [phone] documented as of this encounter Goals Goal Patient Goal Type Associated Problems Recent Progress Patient-Stated? Author Keep fasting blood glucose between 70 and 130 Result Component Type 2 diabetes mellitus with diabetic neuropathic arthropathy, with long-term current use of insulin Worsening( 5:47 PM EDT) No Maixmo Brito, Vinod documented as of this encounter Visit Diagnoses Diagnosis Diabetic polyneuropathy associated with type 2 diabetes mellitus (CMS/HCC) documented in this encounter Additional Health Concerns Assessment Noted Time PHQ-9 Depression Total Score: 13 025 10:20 AM EST documented as of this encounter Care Teams Artificial Cherry Maker Relationship Specialty Start Date End Date Edwin Kirk MD [address] [place] [address] PCP - General Internal Medicine 03/31/14 Isa Curry PharmD [address] [place] [address] Pharmacist Internal Medicine 09/05/24 [facility] 06/27/24 01/23/25 documented as of this encounter
--- OUTSIDE RECORDS SUMMARY | 2025-02-11 08:44 | XMS_ITS | Encounter Summary ---
Author Organization [employer] Address [address] [facility] 7t [place] [address] Care Team Providers Care Jira Developer Name Role Phone Edwin Kirk MD Primary Care Provide r Isa Curry PharmD Unavailable [phone] Reason for Visit * Reason Onset Date Comments Results 02/06/2025 Encounter Details Date Type Department Care Team ([facility] Contact Info) Description 02/06/2025 Telephone [facility] [address] [place] [address] Tram Merritt, RN [address] [place] [address] Results Social History Tobacco Use Types Packs/Day Years [...] AM EDT documented as of this encounter Miscellaneous Notes * Telephone Encounter - Tram Merritt RN - 02/06/2025 4:03 PM EDT Telephone call placed to pt regarding below results and POC. Pt's daughter Essence on HIPAA answered. Informed of results: possible osteomyelitis which is an infection of the bone which is most common in people with diabetes and/or venous insufficiency. Advised STAT MRI and Abx. Informed MRI ordered to further evaluate and confirm Dx, she should get a call within the next couple days to schedule that. Abx ordered to be taken BID sent to [facility] pharmacy. Essence confirmed understanding and states will cook pickled meat Abx today if they are ready for cook pickled meat, if not tomorrow morning. * Telephone Encounter - Tram Merritt RN - 02/06/2025 4:00 PM EDT ----- Message from Franklin Edwards MD sent at 02/06/2025 3:41 PM EDT ----- The result was reviewed: Possible osteomyelitis. I recommend a STAT MRI of the right foot and AUGMENTIN. documented in this encounter Plan of Treatment Upcoming Encounters Date Type Department Care Team (Late st Contact Info) Description 03/20/2025 9:30 AM EDT Medication Management [facility] [address] [place] [address] Isa Curry PharmD [address] [place] [address] 03/27/2025 10:00 AM EDT Office Visit [facility] [address], [place] [phone] Edwin Kirk MD [address] [place], [place] [phone] documented as of this encounter Goals Goal Patient Goal Type Associated Problems Recent Progress Patient-Stated? Author Keep fasting blood glucose between 70 and 130 Result Component Type 2 diabetes mellitus with diabetic neuropathic arthropathy, with long-term current use of insulin Worsening( 5:47 PM EDT) No Maximo Brito, Vinod documented as of this encounter Visit Diagnoses Not on filedocumented in this encounter Additional Health Concerns Assessment Noted Time PHQ-9 Depression Total Score: 13 07/17/ 025 10:20 AM EST documented as of this encounter Care Teams Jira Developer Relationship Specialty Start Date [place] [address] PCP - General Internal Medicine 03/31/14 Isa Curry PharmD [address] [place] [phone] Pharmacist Internal Medicine 09/05/24 documented as of this encounter
--- OUTSIDE RECORDS SUMMARY | 2025-02-11 08:44 | XMS_ITS | Encounter Summary ---
Author Organization [employer] Address [address] [facility] 7t [place] [address] Care Team Providers Care Cardiology Clinical Nurse Specialist Name Role Phone Edwin Kirk MD Primary Care Provide r Isa Curry PharmD Unavailable [phone] Encounter Details Date Type Department Care Team ([facility] st Contact Info) Description 02/06/2025 Orders Only [facility] [address] [place] [address] Edwin Kirk MD [address] [place] [address] Social History Tobacco Use Types Packs/Day Years [...] Description 03/20/2025 9:30 AM EDT Medication Management [facility] [address] [place] [phone] Isa Curry PharmD [address] [place] [phone] 03/27/2025 10:00 AM EDT Office Visit [facility] [address] [place] [phone] Edwin Kirk MD [address] [place] [address] documented as of this encounter Goals Goal Patient Goal Type Associated Problems Recent Progress Patient-Stated? Author Keep fasting blood glucose between 70 and 130 Result Component Type 2 diabetes mellitus with diabetic neuropathic arthropathy, with long-term current use of insulin Worsening( 5:47 PM EDT) No Maximo Brito, PharmD documented as of this encounter Procedures Procedure Name Priority Date/Time Associated Diagnosis Comments XR FOOT 3+ VIEWS RIGHT Routine 02/06/2025 11:50 AM EDT CBC WITH AUTO DIFFERENTIAL Routine 02/06/2025 11:13 AM EDT SED RATE BY MODIFIED WESTERGREN Routine 02/06/2025 11:13 AM EDT C-REACTIVE PROTEIN Routine 02/06/2025 11 :13 AM EDT HEMOGLOBIN A1C Routine 02/06/2025 11:13 AM EDT documented in this encounter Results * XR Foot 3+ Views Right (02/06/2025 11:50 AM EDT) Anatomical Region Laterality Modality Lower Extremities, Foot Right Radiogra phic Imaging 02/06/2025 11:5 0 AM EDT Narrative 02/06/2025 12:41 PM EDT [address] [address] XRay Report Signed Patient: Dora Fernandez MR#: [id number] 005 : 1970 Acct:[id number] Age/Sex: 54 / F ADM Date: 02/06/25 Loc: HO.[facility] Attending Dr: Edwin Benitez MD Ordering Physician: Edwin Benitez MD Date of Service: 02/06/25 Procedure(s): XR foot RT min 3V Accession Number(s): [id number] cc: Edwin Benitez MD EXAMINATION: XR FOOT, RIGHT CLINICAL INFORMATION: R/O OSTEOMYELITIS COMPARISON: June 24, 2024 TECHNIQUE: AP, lateral, and oblique views of the right foot. FINDINGS: Again noted is amputation of the third toe at the MTP joint. There is somewhat linear calcifications in the soft tissues extending between bone and skin surface lateral to the fifth metatarsal head. There is osteopenia. The cortical white line involving the medial fifth metatarsal head. There is minimal osteophyte formation involving the IP and MTP joint the great toe. Moderate marginal spurs are noted dorsal midfoot. Large enthesophytes are present calcaneus on the plantar fascial and Achilles tendon attachments. Mild to moderate vascular calcifications are present. XR/XR foot RT min 3V IMPRESSION: Erosive changes involving the medial head of the fifth metatarsal raise question of osteomyelitis. Stable moderate degenerative changes. Electronically signed by: Riley Dunaway MD 02/06/2025 12:38 PM EDT RP Dictated By: Riley Dunaway MD Signed By: <Electronically signed by Riley Dunaway MD in OV> 02/06/25 1238 DD/ 1150 TD/TT: 02/06/25 1156 Plumbing Warehouse Helper: Procedure Note Donotuseinterpreter, Image - 02/06/[address] [address] XRay Report Signed Patient: Dora FernandezMR#: [id number] 005 : 1970Acct:[id number] Age/Sex: 54 / FADM Date: 02/06/25 Loc: .[facility] Attending Dr: Edwin Benitez MD Ordering Physician: Edwin Benitez MD Date of Service: 02/06/25 Procedure(s): XR foot RT min 3V Accession Number(s): [id number] cc: Edwin Benitez MD EXAMINATION: XR FOOT, RIGHT CLINICAL INFORMATION: R/O OSTEOMYELITIS COMPARISON: June 24, 2024 TECHNIQUE: AP, lateral, and oblique views of the right foot. FINDINGS: Again noted is amputation of the third toe at the MTP joint. There is somewhat linear calcifications in the soft tissues extending between bone and skin surface lateral to the fifth metatarsal head. There is osteopenia. The cortical white line involving the medial fifth metatarsal head. There is minimal osteophyte formation involving the IP and MTP joint the great toe. Moderate marginal spurs are noted dorsal midfoot. Large enthesophytes are present calcaneus on the plantar fascial and Achilles tendon attachments. Mild to moderate vascular calcifications are present. XR/XR foot RT min 3V IMPRESSION: Erosive changes involving the medial head of the fifth metatarsal raise question of osteomyelitis. Stable moderate degenerative changes. Electronically signed by: Riley Dunaway MD 02/06/2025 12:38 PM EDT RP Dictated By: Riley Dunaway MD Signed By: <Electronically signed by Riley Dunaway MD in OV> 02/06/25 1238 DD/ 1150 TD/TT: 02/06/25 1156 Plumbing Warehouse Helper: us Edwin Zuleta MD IMG XR PROCEDURES Fin al Result * (ABNORMAL) Hemoglobin A1c (02/06/2025 11:13 AM EDT) Hemoglobin A1c 7.2(H) <6.0 % [facility] Comment:Hemoglobin A1C Refer ence Range Adults: 4.8 - 6.0 % Non diabetic: < 6.0 % Goal: < 7.0 %Additional Action Suggested: > 8.0 %Note: Hemoglobin A1c results are invalid for patients with abnormal amounts of HbF. Blood transfusions may impact the HbA1c concentration in the patient sample. Estimated Average Glucose 160 mg/dL [facility] Comment:eAG = Estimated ave rage glucose which is %A1C expressed asaverage glucose, using the formula of the R9H-KnniwnyHxjcazs Glucose study (ADAG), Diabetes Care, Vol.31,#8,Jan. 2007 02/06/2025 11:1 3 AM EDT 02/06/2025 12:56 PM EDT us Generic External Data Provider LAB BLOOD ORDERAB LES Final Result [facility] [address] [place] [phone] * (ABNORMAL) Sed Rate by Modified Domenicoren (02/06/2025 11:13 AM EDT) Erythrocyte Sedimentation Rate 21(H) 0 - 20 MM/HR [facility] Comment:Patients with polycy themia and many hemoglobin abnormalitiesmay have depressed sed rates whereas patients with anemiamay have elevated sed rates. 02/06/2025 11:1 3 AM EDT 02/06/2025 12:56 PM EDT Generic External Data Provider LAB BLOOD ORDERAB LES Final Result Performing Organization Address [facility] Co de Phone Number [facility] [address] [place] [phone] * (ABNORMAL) C-reactive Protein (02/06/2025 11:13 AM EDT) [facility] C Reactive Protein 2.66(H) < or = 0.50 mg/dL [facility] 02/06/2025 11:1 3 AM EDT 02/06/2025 12:56 PM EDT Generic External Data Provider LAB BLOOD ORDERAB LES Final Result Performing Organization Address [facility] de Phone Number [facility] [address] [place] [phone] * (ABNORMAL) CBC auto differential (02/06/2025 11:13 AM EDT) [facility] White Blood Count 6.6 4.8 - 10.8 X10*3/uL [facility] Red Blood Count 4.26 4.20 - 5.50 X10*6/uL [facility] Hemoglobin 11.6(L) 12.0 - 16.0 g/dl [facility] Hematocrit 35.6(L) 37.0 - 47.0 % [facility] Mean Corpuscular Volume 83.6 80.0 - 98.0 fL [facility] Mean Corpuscular Hemoglobin 27.2 27.0 - 33.0 pg [facility] Mean Corpuscular HGB Conc 32.6 31.0 - 35.0 g/dl [facility] Red Cell Distribution Width 13.1 11.0 - 16.0 % [facility] Platelet Count 265 160 - 400 X10*3/uL [facility] Mean Platelet Volume 11.7 9.4 - 12.3 fL [facility] Neutrophils Percent Auto 55.6 45 - 73 % [facility] Imm Gran Pct Auto 0.6(H) 0.0 - 0.4 % [facility] Lymphocytes Percent Auto 26.4 20 - 40 % [facility] Monocytes Percent Auto 8.6 2 - 11 % [facility] Eosinophils Percent Auto 8.0(H) 0 - 4 % [facility] Basophils Percent Auto 0.8 0 - 2 % [facility] NRBC Pct Auto 0.0 0.0 - 0.2 /100WBC [facility] Neutrophils Absolute Auto 3.7 2.0 - 8.3 x10*3/uL [facility] Imm Gran Abs Auto 0.04(H) 0.00 - 0.03 X10*3/uL [facility] Lymphocytes Absolute Auto 1.7 1.2 - 4.9 X10*3/uL [facility] Monocytes Absolute Auto 0.6 0.1 - 1.2 X10*3/uL [facility] Eosinophils Absolute Auto 0.5(H) 0.0 - 0.4 X10*3/uL [facility] Basophils Absolute Auto 0.1 0.0 - 0.2 X10*3/uL [facility] NRBC Abs Auto 0.000 0.0 - 0.012 X10*3/uL [facility] 02/06/2025 11:1 3 AM EDT 02/06/2025 12:56 PM EDT us Generic External Data Provider LAB BLOOD ORDERAB LES Final Result [facility] [address] [place] [phone] documented in this encounter Visit Diagnoses Not on filedocumented in this encounter Additional Health Concerns Assessment Noted Time PHQ-9 Depression Total Score: 13 07/17/ 025 10:20 AM EST documented as of this encounter Care Teams Cardiology Clinical Nurse Specialist Relationship Specialty Start Date End Date Edwin Kirk MD [address] [place] [phone] PCP - General Internal Medicine 03/31/14 Isa Curry, Vinod [address] [place] [phone] Pharmacist Internal Medicine 09/05/24 documented as of this encounter
--- OUTSIDE RECORDS SUMMARY | 2025-02-11 08:44 | XMS_ITS | Clinical Summary ---
Author Organization [facility] Address [address] [facility] [address] [place] [phone] Phone Care Team Providers Care Forest Pathology Associate Professor Name Role Phone Edwin Castañeda MD Primary [...] day). Today pt's daughter tells me the Inspector And Clerk Dr Mckeon cancelled the appointment. EKG today [...] % PVNMA 06/23/2020 us [facility] Conversion LAB [id number] LICITED RESULTS Final Result PVNMA from Last 3 Months or Most Recently Relevant to Health Maintenance Insurance MCR ([id number]) MCR ([id number]) Care Teams Forest Pathology Associate Professor Relationship Specialty Start Date End Date Edwin Castañeda MD PCP - General 06/29/20
--- OUTSIDE RECORDS SUMMARY | 2025-02-11 08:44 | XMS_ITS | Encounter Summary ---
Author Organization [employer] Address [address] [facility] 7[address] [place] [address] Care Team Providers Care Basketball Referee Name Role Phone Edwin Kirk MD Primary Care Provide r Isa Curry PharmD Unavailable [phone] Reason for Visit * Reason Comments Med Refill Encounter Details Date Type Department Care Team ([facility] st Contact Info) Description 05/17/2024 Refill [facility] [address] [place] [address] Edwin Kirk MD [address] [place] [address] Type 2 diabetes mellitus with diabetic neuropathic arthropathy, with long-term current use of insulin ([facility]) Social History Tobacco Use Types Packs/Day Years Used Date Smoking Tobacco: Never Passive Smoke Exposure: Never Smokeless Tobacco: Never Alcohol Use Standard Drinks/Week Comments Not Currently 0 (1 standard drink = 0.6 oz pur e alcohol) Depression Answer Date Recorded Patient Health Questionnaire-9 Score 12 01/09/2024 Patient Health Questionnaire-9 Score 12 01/09/2024 Last PHQ-9: Questionnaire Data Not on file 0 01/09/2024 Housing Stability Answer Date Recorded What is [...] Answer Date Recorded Patient Health Questionnaire-2 Score 4 01/09/2024 Comments Unknown Sex and Gender Information Value [...] Description 03/20/2025 9:30 AM EDT Medication Management [facility] [address] [place] [phone] Isa Curry, PharmD [address] [place] [phone] 03/27/2025 10:00 AM EDT Office Visit [facility] [address] [place] [phone] Edwin Kirk MD [address] [place] [address] documented as of this encounter Goals Goal Patient Goal Type Associated Problems Recent Progress Patient-Stated? Author Keep fasting blood glucose between 70 and 130 Result Component Type 2 diabetes mellitus with diabetic neuropathic arthropathy, with long-term current use of insulin Worsening( 5:47 PM EDT) No Maximo Brito, PharmD documented as of this encounter Visit Diagnoses Diagnosis Type 2 diabetes mellitus with diabetic neuropathic arthropathy, with long-term current use of insulin ([facility]) documented in this encounter Additional Health Concerns Assessment Noted Time PHQ-9 Depression Total Score: 12 024 11:58 AM EDT documented as of this encounter Care Teams Basketball Referee Relationship Specialty Start Date End Date Edwin Kirk MD [address] [place], [place] [phone] PCP - General Internal Medicine 03/31/14 Isa Curry PharmD [address] [place] [address] Pharmacist Internal Medicine 09/05/24 [employer] 06/27/24 01/23/25 documented as of this encounter
--- OUTSIDE RECORDS SUMMARY | 2025-02-11 08:44 | XMS_ITS | Clinical Summary ---
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 Active escitalopram (Lexapro) 10 MG tablet Take 1.5 tablets by mouth in the morning. 023 Active eszopiclone (Lunesta) 3 MG tablet Take 1 tablet by mouth if needed at bedtime. Active nitroglycerin (Nitrostat) 0.4 MG SL tablet DISSOLVE 1 TABLET UNDER THE TONGUE EVERY 5 MINUTES NEEDED FOR CHEST PAIN. CALL 911 IF NO RELIEF Active OXcarbazepine (Trileptal) 300 MG tablet Take 1 tablet by mouth 2 times daily. 023 Active Blood Glucose Monitoring Suppl (FreeStyle Lite) w/Device kit 1 Device before breakfast, before lunch, and before evening meal. 1 kit Active Blood Pressure Monitor kit 1 each in the morning. Use to check blood pressure at least once daily after taking medication 1 kit Active celecoxib (CeleBREX) 200 MG capsule Take 200 mg by mouth 2 times daily. 024 Active Pentips 32G X 4 MM misc USE DIRECTED FOUR TIMES DAILY 100 each 11 024 Active atorvastatin (Lipitor) 40 MG tablet TAKE 1 TABLET BY MOUTH AT BEDTIME 90 tablet 3 024 Active Aspirin Low Dose 81 MG EC tablet TAKE 1 TABLET BY MOUTH EVERY MORNING 90 tablet 3 025 Active lisinopril 10 MG tablet TAKE 1 TABLET BY MOUTH EVERY MORNING 90 tablet 3 025 Active Alcohol Swabs (Alcohol Prep) 70 % padsIndications: Type 2 diabetes mellitus with diabetic neuropathic arthropathy, with long-term current use of insulin ([facility]) TAKE 1 TABLET BY MOUTH TWICE DAILY 100 each 11 025 Active TRUEplus Lancets 33G miscIndications: Type 2 diabetes mellitus with diabetic neuropathic arthropathy, with long-term current use of insulin ([facility]) TEST BLOOD SUGAR TWICE DAILY 100 each 11 025 Active metoprolol succinate XL (Toprol-XL) 25 MG 24 hr tabletIndication s:Benign essential hypertension TAKE 1 TABLET BY MOUTH EVERY EVENING DO NOT BREAK, CRUSH, DISSOLVE OR CHEW 30 tablet 3 025 Active FREESTYLE LITE test stripIndications :Type 2 diabetes mellitus with diabetic neuropathic arthropathy, with long-term current use of insulin ([facility]) TEST BLOOD SUGAR TWICE DAILY 100 strip 11 025 Active insulin glargine (Toujeo SoloStar) 300 UNIT/ML injectionIndicat ions:Type 2 diabetes mellitus with diabetic neuropathic arthropathy, with long-term current use of insulin ([facility]) INJECT 40 UNITS SUBCUTANEOUSLY EVERY DAY AT BEDTIME 4.5 mL 1 025 Active insulin aspart (NovoLOG FLEXPEN) 100 UNIT/ML penIndications:T ype 2 diabetes mellitus with diabetic neuropathic arthropathy, with long-term current use of insulin ([facility]) IN 0 TO 12 UNITS SUBCUTANEOUSLY THREE TIMES DAILY DIRECTED by sliding scale 60 mL 1 025 Active gabapentin (Neurontin) 300 MG capsuleIndicatio ns:Diabetic polyneuropathy associated with type 2 diabetes mellitus ([facility]) TAKE 1 CAPSULE BY MOUTH TWICE DAILY IN THE MORNING AND AT BEDTIME 60 capsule 025 Active omeprazole (PriLOSEC) [address] capsuleIndicatio ns:Heartburn Take 1 capsule (20 mg) by mouth in the morning. Do not crush or chew. 90 capsule 025 Active D3 Super Strength 50 MCG (1999 UT) capsuleIndicatio ns:Low vitamin D level TAKE 1 CAPSULE BY MOUTH EVERY MORNING 90 capsule 1 025 Active Tirzepatide (Mounjaro) 5 MG/0.5ML solution auto-injectorInd ications:Type 2 diabetes mellitus with diabetic neuropathic arthropathy, with long-term current use of insulin ([facility]) Inject 5 mg under the skin 1 (one) time per week. 2 mL 1 025 Active amoxicillin-clav ulanate (Augmentin) 875-125 MG tabletIndication s: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) Take 1 tablet by mouth 2 times daily for 84 doses. 84 tablet 025 2024 Active cholecalciferol (D3 Super Strength) 50 MCG (1999 UT) capsuleIndicatio ns:Low vitamin D level TAKE 1 TABLET BY MOUTH EVERY MORNING 90 capsule 1 025 2024 Discontinued Semaglutide, 2 MG/DOSE, (Ozempic, 2 MG/DOSE,) 8 MG/3ML solution pen-injectorIndi cations:Type 2 diabetes mellitus with diabetic neuropathic arthropathy, with long-term current use of insulin ([facility]) Inject 0.75 mL (2 mg) under the skin 1 (one) time per week. 3 mL 11 025 2024 Discontinued(A lternate therapy) Active Problems Problem Noted Date Diagnosed Date Ulcer of right foot with necrosis of muscle 06/20 Overview (07/17/2024): Admitted [facility] (06/24/2024 - 06/26/2024) for right foot wound with discharge and pain. Xray showed soft tissue swelling over the 5th MTP joint without evidence of osteomyelitis. Patient was admitted and started on IV Zosyn 3.375 g and vancomycin IV 2 g. Was transitioned to PO antibiotics, prescribed Doxycycline 100 mg by mouth every 12 hours for 7 days and Amoxicillin-pot clavulanate 875-125 mg by mouth every 12 hours for 7 day Patient followed with [facility] [place] 07/08/2024 Dr. Lim recommending follow up wound care. Saw Podiatry on 07/15/24, open wound selective debridement of devitalized necrotic/nonviable soft tissue and keratoma treatment. Follow-up in 2 months. Wound clinic is every week has seen on and has 3rd. Alginate foor a few weeks until insurance improves skin sub [facility] coming every other day Assessment & Plan (07/17/2024 9:37 AM EST): Admitted [facility] (06/24/2024 - 06/26/2024) for right foot wound with discharge and pain. Xray showed soft tissue swelling over the 5th MTP joint without evidence of osteomyelitis. Patient was admitted and started on IV Zosyn 3.375 g and vancomycin IV 2 g. Was transitioned to PO antibiotics, prescribed Doxycycline 100 mg by mouth every 12 hours for 7 days and Amoxicillin-pot clavulanate 875-125 mg by mouth every 12 hours for 7 day Patient followed with [facility] general surgeons 07/08/2024 Dr. Lim recommending follow up wound care. Saw Podiatry on 07/15/24, open wound selective debridement of devitalized necrotic/nonviable soft tissue and keratoma treatment. Follow-up in 2 months. Wound clinic is every week has seen on and has 3rd. Alginate foor a few weeks until insurance improves skin sub [facility] coming every other day Morbid obesity with BMI of 50.0-59.9, adult 12/18 Assessment & Plan (10/10/2024 9:17 AM EDT): Patient has been counseled and educated about diet and exercise. Personal goal of weight loss discussed Patient has comorbidity of: DM Dietary Recommendations: Fruits, vegetables, whole grains, protein foods, and fat-free or low-fat dairy products are healthy choices. Eat different types of protein foods in your diet. This can include seafood, lean meats, poultry, beans, peas, lentils, nuts, seeds, soy products, and eggs. Limit foods and beverages higher in added sugars, saturated fat, and sodium. Exercise Recommendations: Pt is unable to exercise much due to poor balance Assessment & Plan (01/09/2024 11:50 AM EDT): Patient has been counseled and educated about diet and exercise. Personal goal of weight loss discussedPatient has comorbidity of: DM History of amputation of lesser toe of right melissa t 01/09/2024 Assessment & Plan (10/10/2024 9:13 AM EDT): Completely healed Assessment & Plan (01/09/2024 12:42 PM EDT): Completely healed Acute pain of right knee 10/24/2023 Assessment & Plan (01/09/2024 11:39 AM EDT): Pt reported right knee pain x 1 week On exam no swelling, full ROM Reports a Hx of fall 1 year ago Plain films right knee were unremarkable Assessment & Plan (10/24/2023 11:21 AM EDT): Pt reports right knee pain x 1 week On exam no swelling, full ROM Reports a Hx of fall 1 year ago Plan: Plain films right knee Preventative health care 10/25/2022 Assessment & Plan (01/09/2025 12:08 PM EDT): Mammogram: NL : 09/04/2023 Pap Smear: 10/29/11 s/p ALYSSA Colonoscopy: 12/25/2018, She was supposed to have a repeat in 1 year due to poor prep. She was seen by GI 06/14/2024 and Repeat colonoscopy was recommended shceduled for 10/22/2024. Pt missed appointment daughter promised to call and rescheduled Assessment & Plan (10/10/2024 9:29 AM EDT): Mammogram: NL : 09/04/2023 Pap Smear: 10/29/11 s/p ALYSSA Colonoscopy: 12/25/2018, She was supposed to have a repeat in 1 year due to poor prep. She was seen by GI 06/14/2024 and Repeat colonoscopy was recommended shceduled for 10/22/2024 Assessment & Plan (01/09/2024 11:56 AM EDT): Mammogram: NL : 09/04/2023 Pap Smear: 10/29/11 s/p ALYSSA Colonoscopy: 12/25/2018, She was supposed to have a repeat in 1 year due to poor prep will refer back Assessment & Plan (10/25/2022 1:10 PM EDT): Mammogram: NL : 08/30/2021 Pap Smear: 10/29/11 s/p ALYSSA Colonoscopy: 12/25/2018, She was supposed to have a repeat in 1 year due to poor prep will contact GI Type 2 diabetes mellitus 10/13/2022 Obesity hypoventilation syndrome 08/11/2022 Assessment & Plan (10/10/2024 9:11 AM EDT): Sleep study done 05/10/2022 showed that there was NO evidence of sleep apnea . The AHI was 2 hr and oxygen jeyson was 86%. Concern was raised for Obesity Hypoventilation Syndrome. The recommendation was to consider a repeat sleep study with EICO2 measurements. Patient was seen by Pulmonology Dr Toavr last note: 09/28/2023 Assessment & Plan (01/09/2024 11:50 AM EDT): Sleep study done 05/10/2022 showed that there was NO evidence of sleep apnea . The AHI was 2 hr and oxygen jeyson was 86%. Concern was raised for Obesity Hypoventilation Syndrome. The recommendation was to consider a repeat sleep study with EICO2 measurements. Patient was seen by Pulmonology Dr Tovar last note: 09/28/2023 Assessment & Plan (10/24/2023 11:04 AM EDT): Sleep study done 05/10/2022 showed that there was NO evidence of sleep apnea . The AHI was 2 hr and oxygen jeyson was 86%. Concern was raised for Obesity Hypoventilation Syndrome. The recommendation was to consider a repeat sleep study with EICO2 measurements. Patient was seen by Pulmonology Dr Tovar last note: 09/28/2023 Assessment & Plan (08/11/2022 3:31 PM EST): Sleep study done 05/10/2022 showed that there was NO evidence of sleep apnea . The AHI was 2 hr and oxygen jeyson was 86%. Concern was raised for Obesity Hypoventilation Syndrome. The recommendation was to consider a repeat sleep study with EICO2 measurements. Plan; Will refer to PUlmonology Chest pain 08/09/2022 Assessment & Plan (10/25/2022 1:03 PM EDT): Televisit Underwent extensive cardiac evaluation by [facility] nuclear stress test done on 09/02/2022 with proximal LAD ischemia. Echocardiogram done 08/26/2022 showed EF 56%, no regional wall motion abnormality and no significant valve abnormality. She was started on the appropriate medical management for CAD including aspirin, atorvastatin, metoprolol, isosorbide. She underwent cardiac catheterization on 09/16/2022 showing normal coronary arteries. Her stress test was felt to be false positive and her symptoms noncardiac. Last seen 09/26/2022 has a follow up Assessment & Plan (08/09/2022 1:24 PM EST): Previous visit pt c/o intermittent chest discomfort [...] day). Today pt's daughter tells me the [facility] Dr Mckeon cancelled the appointment. EKG today shows: sinus arrythmia, peaked T waves. I discussed findings with Cardiology ( Dr. Penaloza in the absence of Dr Mckeon , who requested I sent him the patient information to schedule an appointment for patient crotney ) Pt reports compliance with her daily aspirin and reports her blood sugars are controlled. Vascular insufficiency 08/08/2022 Polyneuropathy due to type 2 diabetes mellitus 0 08/08/2022 Cholelithiasis without obstruction 08/08/2022 Proteinuria 10/19/2020 Anemia of chronic disease 10/19/2020 Depressive disorder 11/06/2012 Type 2 diabetes mellitus wit h diabetic neuropathic arthropathy, with long-term current use of insulin 08/14/2012 Overview (07/17/2024): Pharmacotherapy: Updated 07/17/24 - Toujeo solostar - Was increased from 48 to 50 01/2025 but this was decreased to 40 in hospital and BS are varied in am - Novolog Flexpen - 12 to 26 units SS TID changed 2-10 in hospital 06/2024 - Ozempic 0.25mg x 1 week, then 0.5mg weekly increased to 1mg weekly on 07/17/24 - On ASA: Y - On Statin: Y - Last Eye Exam: > 1 year - Last Dental Exam: >6 months Recent hospitalization at [facility] 06/24/2024 - 06/26/2024. Saw CDTM on 07/09/24 who recommended reassessing A1C (10.8% 01/09/2024 and 10.4 07/17/24), and per patient's daughter the hospital advised a decrease in TDD of insulin. Also recommended to assess SMBG data for possible adjustments with insulin following TDD decrease post-hospitalization. We are increasein Ozempic to 1 mg subcutaneously once weekly 07/17/24, followed by A1C in 3 months. Patient has been using 0.5 mg of Ozempic since 12/2023 Assessment & Plan (01/09/2025 12:07 PM EDT): Pt here for a f/u regarding her DM She used to be under the care of Endocrinology, last seen 04/05/2022, DM improving She is only on Toujeo 40 units sc q pm (once a day bedtime) Novolog 14-20 units per Sliding scale before meals Hgb A1c 01/09/2025: 7.2 from 7.4 from 10.9 Eye exam done on: 07/23/[address] Purvis Microalbumin checked on: 01/09/2024 was: 113 Pt on an TEO inhibitor. Will repeat. Foot check shows Charcot's foot Plan: Continue Ozempic 2 mg once a week and Toujeo 40 units sc q pm (once a day) Novolog 14-20 units per Sliding scale before meals Continue following with our CDTM team as well Pt reports compliance with Asa 81 mg po daily Pt advised to: adhere to diabetic diet check your blood sugars regularly check your feet on a daily basis. F/u 12 weeks Assessment & Plan (10/10/2024 9:27 AM EDT): Pt here for a f/u regarding her DM She used to be under the care of Endocrinology, last seen 04/05/2022, DM much better control She is only on Toujeo 40 units sc q pm (once a day bedtime) Novolog 14-20 units per Sliding scale before meals Hgb A1c 10/10/2024: 7.4 from 10.9 Eye exam done on: 07/23/[address] Purvis Microalbumin checked on: 01/09/2024 was: 113 Pt on an TEO inhibitor. Foot check shows Charcot's foot Plan: Continue Ozempic 1 mg once a week and Toujeo 40 units sc q pm (once a day) Novolog 14-20 units per Sliding scale before meals Continue following with our CDTM team as well Pt reports compliance with Asa 81 mg po daily Pt advised to: adhere to diabetic diet check your blood sugars regularly check your feet on a daily basis. F/u 12 weeks Assessment & Plan (07/17/2024 9:40 AM EST): Pharmacotherapy: Updated 07/17/24 - Toujeo solostar - Was increased from 48 to 50 01/2025 but this was decreased to 40 in hospital and BS are varied in am - Novolog Flexpen - 12 to 26 units SS TID changed 2-10 in hospital 06/2024 - Ozempic 0.25mg x 1 week, then 0.5mg weekly increased to 1mg weekly on 07/17/24 - On ASA: Y - On Statin: Y - Last Eye Exam: > 1 year - Last Dental Exam: >6 months Recent hospitalization at [facility] 06/24/2024 - 06/26/2024. Saw CDTM on 07/09/24 who recommended reassessing A1C (10.8% 01/09/2024 and 10.4 07/17/24), and per patient's daughter the hospital advised a decrease in TDD of insulin. Also recommended to assess SMBG data for possible adjustments with insulin following TDD decrease post-hospitalization. We are increasein Ozempic to 1 mg subcutaneously once weekly 07/17/24, followed by A1C in 3 months. Patient has been using 0.5 mg of Ozempic since 12/2023 Assessment & Plan (01/29/2024 2:50 PM EDT): Assessment: - NOT at goal of A1c less than 7% or fasting BG between 70-130 mg/dL per ADA guidelines. Plan/ Recommendations: - Inject 50 units of toujeo tonight - TITRATE Toujeo by 2 units every OTHER day until Fasting BG is less than 150mg/dl - F/U with new [facility] pharmacist for continued titration on 02/11. Monitoring: Hemoglobin A1c Date Value 05/16/2023 8.9 % (H) 02/25/2022 6.8 % of total Hgb (H) 09/03/2020 8.1 % of total Hgb (H) Hemoglobin A1C (%) Date Value 01/09/2024 10.8 (A) 09/06/2023 12.3 (A) LDL Cholesterol (mg/dL (calc)) Date Value 02/25/2022 76 HDL Cholesterol (mg/dL) Date Value 02/25/2022 70 No results found for: B12 Assessment & Plan (01/15/2024 4:34 PM EDT): Assessment: - NOT at goal of A1c less than 7% or fasting BG between 70-130 mg/dL per ADA guidelines. Plan/ Recommendations: - INCREASE Toujeo to 48 units and increase by 2 units every OTHER day until morning fasting BG is less than 150mg/dl - Continue with current SS for Novolog. Skip dose if eating a very light meal. - F/U in 2 weeks Monitoring: - A1c/ Cholesterol/ daily SMBG Assessment & Plan (01/09/2024 12:00 PM EDT): Pt here for a f/u regarding her DM She used to be under the care of Endocrinology, last seen 04/05/2022, DM improving She was supposed to be on Ozempic 1 mg per week. But she has not been taking it. She is only on Toujeo 44 units sc q pm (once a day) Novolog 14-20 units per Sliding scale before meals Hgb A1c 01/09/2024: 10.8 from12.3 Eye exam done on: 06/06/[address] Purvis Microalbumin checked on: 08/18/2021 was: 2.9 Pt on an TEO inhibitor. Foot check shows Charcot's foot Plan: Restart Ozempic 0.25 once a week x 4 weeks then increase to 0.5 mg once a week cortney, for whatever reason pt has yet to start. Pt following with our CDTM team as well Pt reports compliance with Asa 81 mg po daily Pt advised to: adhere to diabetic diet check your blood sugars regularly check your feet on a daily basis. F/u 8 weeks Assessment & Plan (01/08/2024 5:47 PM EDT): Assessment: - NOT at goal of A1c less than 7% or fasting BG between 70-130 mg/dL per ADA guidelines. Plan/ Recommendations: - INCREASE Toujeo to 64 units at bedtime - START Ozempic as soon as possible - F/U in 1 week. Check AM fasting BG and approx. 2 Hours PP dinner. Monitoring: Hemoglobin A1c Date Value 05/16/2023 8.9 % (H) 02/25/2022 6.8 % of total Hgb (H) 09/03/2020 8.1 % of total Hgb (H) Hemoglobin A1C (%) Date Value 09/06/2023 12.3 (A) 05/09/2023 9.0 (A) LDL Cholesterol (mg/dL (calc)) Date Value 02/25/2022 76 HDL Cholesterol (mg/dL) Date Value 02/25/2022 70 No results found for: B12 Assessment & Plan (10/24/2023 11:20 AM EDT): Pt here for a f/u regarding her DM She used to be under the care of Endocrinology, last seen 04/05/2022, DM uncontrolled She was supposed to be on Ozempic 1 mg per week. But she has not been taking it. She is only on Toujeo 40 units sc q pm (once a day) Novolog 14-20 units per Sliding scale before meals Hgb A1c 09/06/2023: 12.3 Eye exam done on: 06/06/[address] Purvis Microalbumin checked on: 08/18/2021 was: 2.9 Pt on an TEO inhibitor. Foot check shows Charcot's foot Plan: Restart Ozempic 0.25 once a week x 4 weeks then increase to 0.5 mg once a week Pt reports compliance with Asa 81 mg po daily Pt advised to: adhere to diabetic diet check your blood sugars regularly check your feet on a daily basis. F/u 8 weeks Assessment & Plan (05/09/2023 12:23 PM EST): In terms of her DM Pt has been recommended to inject only 1/2 the dose of her regular dose of Toujeo (20 units) Monitor her Blood sugar preoperatively intraoperatively and postoperatively and if elevated use sliding scale Assessment & Plan (01/26/2023 10:29 AM EDT): Pt here for a f/u regarding her DM She used to be under the care of Endocrinology, last seen 04/05/2022, DM uncontrolled She is on a regimen of: Ozempic 1 mg per week , Toujeo 34 units sc q pm (once a day) Novolog 14-20 units per Sliding scale before meals Hgb A1c 01/26/2023: 9.0 Eye exam done on: 06/06/[address] Purvis Microalbumin checked on: 08/18/2021 was: 2.9 Pt on an TEO inhibitor. Foot check shows Charcot's foot Plan: Increase Toujeo to 40 units f/u with me in 4 months Pt reports compliance with Asa 81 mg po daily Pt advised to: adhere to diabetic diet check your blood sugars regularly check your feet on a daily basis. Assessment & Plan (08/09/2022 11:24 AM EST): Pt here for a f/u regarding her DM She remains under the care of Endocrinology, last seen 04/05/2022, DM controlled She is on a regimen of: Ozempic 1 mg per week , Toujeo 54 units sc q pm (once a day) Novolog 14-20 units per Sliding scale before meals prescribed by Endocrinology, Hgb A1c 08/09/2022: 7.1 Eye exam done on: 06/06/[address] Purvis Microalbumin checked on: 08/18/2021 was: 2.9 Pt on an TEO inhibitor. Foot check shows Charcot's foot Plan: as per Endocrinology f/u with me in 4 months Pt reports compliance with Asa 81 mg po daily Pt advised to: adhere to diabetic diet check your blood sugars regularly check your feet on a daily basis. Obesity 06/25/2012 Assessment & Plan (08/09/2022 1:28 PM EST): Patient has been counseled and educated about diet and exercise. Personal goal of weight loss discussedPatient has comorbidity of: DM, HTN, Pt has the information about the Comprehensive weight management program Mixed hyperlipidemia 06/19/1961 Assessment & Plan (10/25/2022 12:57 PM EDT): Patient here for a f/u Most recent lipid profile from: 02/25/2022 shows a total cholesterol of: 161 triglycerides of: 71 HDL of: 70 and LDL of: 76 Currently on a regimen of: Simvastatin 10 mg po qhs. . Lipids are at target For now will continue with current regimen. Pt will have a repeat Lipid profile, She did not do itadvised to try to adhere to a low cholesterol diet, counseled and educated about diet and exercise, Patient encouraged to come up with a personal goal for weight loss. Assessment & Plan (08/09/2022 11:22 AM EST): Patient here for a f/u Most recent [...] with a personal goal for weight loss. Chronic kidney disease, stage III (moderate) 06/1961 Overview (07/17/2024): CrCl (adj bw) 65.3 ml/min on 06/24/2024, no renal dose adjustments required at this time. Assessment & Plan (01/09/2024 11:52 AM EDT): Under the care of Nephrology, last note 10/13/2022 Benign essential hypertension 06[birth year]19/1961 Assessment & Plan (01/09/2025 12:01 PM EDT): Patient here for a f/u She is currently on a regimen of: Lisinopril 10 mg po daily and Toprol XL 25 mg po daily Most recent electrolytes, done on: Lab Results Component Value Date NA 132 (L) 06/24/2024 NA 141 10/30/2023 K 4.2 06/24/2024 K 4.0 10/30/2023 CL 97 06/24/2024 CL 102 10/30/2023 BUN 20 (H) 06/24/2024 BUN 19 (H) 10/30/2023 CREATININE 1.55 (H) 06/24/2024 CREATININE 1.44 (H) 10/30/2023 Plan: No changes for now since BP at home controlled, repeat BMP patient advised to adhere to a low sodium diet, encouraged about medication compliance, counseled about weight loss. Assessment & Plan (10/10/2024 9:28 AM EDT): Patient here for a f/u She is currently on a regimen of: Lisinopril 10 mg po daily and Toprol XL 25 mg po daily Most recent electrolytes, done on: 10/30/2023 wnl Pt checks BP at home and reports systolic is usually in the 120s 130s Plan: No changes for now since BP at home controlled patient advised to adhere to a low sodium diet, encouraged about medication compliance, counseled about weight loss. Assessment & Plan (01/09/2024 11:59 AM EDT): Patient here for a f/u BP uncontrolled She is currently on a regimen of: Lisinopril 10 mg po daily Most recent electrolytes, done on: 10/30/2023 wnl Plan: start Toprol XL 25 mg po daily patient advised to adhere to a low sodium diet, encouraged about medication compliance, counseled about weight loss. Assessment & Plan (05/09/2023 12:24 PM EST): Patient advised to take her Lisinopril with a small sip of water to prevent her blood pressure from going up during the procedure Assessment & Plan (10/25/2022 12:56 PM EDT): Televisit BP at home remains controlled She is currently on a regimen of: Lisinopril 10 mg po daily Given adequate blood pressure control will continue with current medical regimen. Most recent electrolytes, done on: 09/06/2022 wnl patient advised to adhere to a low sodium diet, encouraged about medication compliance, counseled about weight loss. Assessment & Plan (08/09/2022 11:21 AM EST): Patient here for a f/u BP remains controlled She is currently on a regimen of: Lisinopril 10 mg po daily Given adequate blood pressure control will continue with current medical regimen. Most recent electrolytes, done on: 02/25/2022 wnl patient advised to adhere to a low sodium diet, encouraged about medication compliance, counseled about weight loss. Resolved Problems Problem Noted Date Diagnosed Date Resolved Date Acute osteomyelitis 01/10/2023 01/09/20 Assessment & Plan (01/26/2023 10:23 AM EDT): Seen by Dr Chacon and being followed by wound clinic for right foot infection,OM. She is supposed to have six weeks IV Ertapenem. She has no fever or chills now. will complete 02/11 Diabetic foot ulcer 01/10/2023 01/09/20 Diabetic ulcer of toe of rig ht foot associated with type 2 diabetes mellitus, limited to breakdown of skin 01/10/2023 01/09/2024 Non-pressure chronic ulcer o f other part of right foot limited to breakdown of skin 08/08/2022 01/09/2024 Encounters Date Type Department Care Team Description 02/06/2025 Telephone [facility] [address] [place] [phone] Tram Merritt RN Results 02/06/2025 Orders Only [facility] [address] [facility] [place] [address] Franklin Edwards MD Ulcer of right foot with necrosis of muscle ([facility]/HCC) (Primary Dx) 02/06/2025 Orders Only [facility] [address] [place] [phone] Edwin Kirk MD 02/06/2025 Travel 01/16/2025 Refill [facility] [address] [facility] [place] [address] Edwin Kirk MD Low vitamin D level 01/09/2025 11:30 AM EDT Office Visit [facility] [address] [place] [address] Edwin Kirk MD Type 2 diabetes mellitus with diabetic neuropathic arthropathy, with long-term current use of insulin (CMS/HCC) (Primary Dx); Diabetic polyneuropathy associated with type 2 diabetes mellitus (CMS/HCC); Benign essential hypertension; Heartburn; Breast cancer screening by mammogram; Preventative health care 01/09/2025 Travel 01/06/2025 Refill [facility] [address] [place] [address] Edwin Kirk MD Diabetic polyneuropathy associated with type 2 diabetes mellitus (CMS/HCC) 12/12/2024 Orders Only [facility] [address] [place] [address] Edwin Kirk MD Diabetic polyneuropathy associated with type 2 diabetes mellitus (CMS/HCC) 12/12/2024 Telephone [facility] [address] [place] [address] Edwin Kirk MD 12/12/2024 Travel 12/07/2024 Refill [facility] [address] [facility] [place] [address] Edwin Kirk MD Type 2 diabetes mellitus with diabetic neuropathic arthropathy, with long-term current use of insulin (CMS/HCC) 11/14/2024 Refill [facility] [address] [facility] [place] [address] Edwin Kirk MD Type 2 diabetes mellitus with diabetic neuropathic arthropathy, with long-term current use of insulin ([facility]) from Last 3 Months Immunizations Immunization Administration Dates Next Due HepB-CpG 12/12/2024,09/05/2024 Influenza injectable quadriv alent IIV4 with preservative 02/28/2019,04/26/2016 Influenza injectable quadriv alent preservative free 04/26/2022,07/20/2021,03/13/2020,04/02,03/30/2017,07/30/2015 Influenza, IIV3, injectable 05/01/2014, 1 Influenza, Split (incl. alicia fied surface antigen) 03/22/2013,03/07/2012 Influenza, Unspecified 05/01/2014,04/22/2011 Influenza, seasonal, injecta ble, preservative free 07/18/2024,11/18/2019,02/18/2019 Pfizer Covid-19 Vaccine 12+ 07/18/2024 Pneumococcal Conjugate PCV 20 01/09/2024 Pneumococcal Polysaccharide PPSV23 02/23/2017, TD (adult), 2 Lf tetanus tox oid, preservative free, adsorbed 11/23/2005 Td (adult), 5 Lf tetanus tox oid, preservative free, adsorbed 04/26/2016 Zoster, Recombinant 10/10/2024,07/18/2024 Social History Tobacco Use Types Packs/Day Years Used Date Smoking Tobacco: Never Passive Smoke Exposure: Never Smokeless Tobacco: Never Tobacco Cessation:Counseling Given: Not Answered Alcohol Use Standard Drinks/Week Comments Not Currently [...] the past 12 months, has t he [employer] gas, oil or water company threatened to [...] Orientation Straight 04/18/2022 10 :18 AM EDT Last Filed Vital Signs Vital Sign Reading Time Taken Comments Blood Pressure 132/72 02/06/2025 11:01 AM EDT Pulse 83 02/06/2025 11:01 AM EDT Temperature 36.3 C (97.4 F) 01/09/2025 11:52 AM EDT Respiratory Rate 20 01/09/2025 11:52 AM EDT Oxygen Saturation 98% 01/09/2025 11:52 AM EDT Inhaled Oxygen Concentration - - Weight 157 kg (346 lb) 01/09/2025 11:52 AM EDT Height 175.3 cm (5' 9 ) 01/09/2025 11:52 AM EDT Body Mass Index 51.1 01/09/2025 11:52 AM EDT Plan of Treatment Upcoming Encounters Date Type Department Care Team (Late st Contact Info) Description 03/20/2025 9:30 AM EDT Medication Management [facility] [address] [place] [address] Isa Curry, PharmD [address] [place] [address] 03/27/2025 10:00 AM EDT Office Visit [facility] [address] [facility] [place], [place] [phone] Edwin Kirk MD [address] [place] [address] Health Maintenance Due Date Last Done Comments CT Colonography 1968 FIT DNA/Cologuard 1968 FIT 1970 FOBT 1970 HIV Screening 1970 Sigmoidoscopy 1970 Disability Screening 1968 Diabetes: Foot Exam 1978 DTaP/Tdap/Td Vaccines (1 - Tdap) 04/27/2016 04/26/2016, 11/23/2005 Colonoscopy 12/26/2019 12/25/2018 Colorectal Cancer Screening 12/26/2019 Mammogram 09/03/2024 09/04/2023, 08/17, 08/28/2020, Additional history exists Depression Monitoring 01/14/2025 07/17/2024, 025 Influenza Vaccine (#1) 2025 , 04/26/2022, 07/20/2021, Additional history exists Diabetes: Hemoglobin A1C 05/09/2025 025, 01/09/2025, 10/10/2024, Additional history exists Alcohol/Substance Use Screening 07/17/2025 07/17/2024 SDOH Screening 07/17/2025 07/17/2024 Tobacco Screening 01/09/2026 01/09/2025 Diabetes: Urine Protein Screening 01/27/2026 01/27/2025, 01/09/2024, 09/06/2022, Additional history exists Lipid Panel 01/27/2026 01/27/2025, 10/17, 02/25/2022, Additional history exists Eye Exam 07/04/2026 07/04/2024, 06/19, 07/04/2024, Additional history exists RSV Patients and Patients Aged 60 years or older (1 - 1-dose 75+ series) 2043 Hepatitis C Screening Completed 02/25/2022 Pneumococcal Vaccine: 50+ Years Completed 01/09/2024, 02/23/2017, 02/22/2006 COVID-19 Vaccine Completed 07/18/2024, 11/2020, 09/08/2020, Additional history exists Zoster Vaccines Completed 10/10/2024, 07/18/2024 Hepatitis B Vaccines Completed 12/12/2024, 09/06/19 25 HIB Vaccines Aged Out No longer eligi ble based on patient's age to complete this topic HPV Vaccines Aged Out No longer eligi ble based on patient's age to complete this topic Hepatitis A Vaccines Aged Out No long er eligible based on patient's age to complete this topic IPV Vaccines Aged Out No longer eligi ble based on patient's age to complete this topic Meningococcal B Vaccine Aged Out No l onger eligible based on patient's age to complete this topic Meningococcal Vaccine Aged Out No ru dixon eligible based on patient's age to complete this topic RSV under 20 months Aged Out No longe r eligible based on patient's age to complete this topic Rotavirus Vaccines Aged Out No longer eligible based on patient's age to complete this topic Goals Goal Patient Goal Type Associated Problems Recent Progress Patient-Stated? Author Keep fasting blood glucose between 70 and 130 Result Component Type 2 diabetes mellitus with diabetic neuropathic arthropathy, with long-term current use of insulin Worsening( 5:47 PM EDT) No Maximo Brito PharmD Procedures Procedure Name Priority Date/Time Associated Diagnosis Comments XR FOOT 3+ VIEWS RIGHT Routine 11:50 AM EDT HEMOGLOBIN A1C Routine 02/06/2025 11:13 AM EDT SED RATE BY MODIFIED WESTERGREN Routine 02/06/2025 11:13 AM EDT C-REACTIVE PROTEIN Routine 02/06/2025 11 :13 AM EDT CBC WITH AUTO DIFFERENTIAL Routine 02/06/2025 11:13 AM EDT ALBUMIN, RANDOM URINE W/CREATININE Routine 01/27/2025 9:31 AM EDT Type 2 diabetes mellitus with diabetic neuropathic arthropathy, with long-term current use of insulin (CMS/HCC) COMPREHENSIVE METABOLIC PANEL Routine 01/27/2025 9:31 AM EDT Type 2 diabetes mellitus with diabetic neuropathic arthropathy, with long-term current use of insulin (CMS/HCC) LIPID PANEL, STANDARD Routine 01/27/2025 9:31 AM EDT Type 2 diabetes mellitus with diabetic neuropathic arthropathy, with long-term current use of insulin (CMS/HCC) POCT GLYCATED HEMOGLOBIN, TOTAL Routine 01/09/2025 12:05 PM EDT Type 2 diabetes mellitus with diabetic neuropathic arthropathy, with long-term current use of insulin (CMS/HCC) POCT GLUCOSE Routine 01/09/2025 12:03 PM EDT Type 2 diabetes mellitus with diabetic neuropathic arthropathy, with long-term current use of insulin (CMS/HCC) BI MAMMOGRAM SCREENING TOMOSYNTHESIS BILATERAL Routine 09/04/2023 11:35 AM EDT ZZZ HISTORICAL HEPATITIS C AB W/REFL TO HCV RNA, QN, PCR Routine 02/25/2022 9:25 AM EDT HM COLONOSCOPY Routine 12/25/2018 7:41 AM EDT from Last 3 Months or Most Recently Relevant to Health Maintenance Results * XR Foot 3+ Views Right (02/06/2025 11:50 AM EDT) Anatomical Region Laterality Modality Lower Extremities, Foot Right [facility] 02/06/2025 11:5 0 AM EDT Narrative 02/06/2025 12:41 PM EDT [address] [address] XRay Report Signed Patient: Dora Fernandez MR#: [id number] 005 : 1970 Acct:[id number] Age/Sex: 54 / F ADM Date: 02/06/25 Loc: [facility] Attending Dr: Edwin Benitez MD Ordering Physician: Edwin Benitez MD Date of Service: 02/06/25 Procedure(s): XR foot RT min 3V Accession Number(s): [id number] cc: Edwin Benitez MD EXAMINATION: XR FOOT, [...] Riley Dunaway MD 02/06/2025 12:38 PM EDT Dictated By: Riley Dunaway MD Signed By: <Electronically signed by Riley Dunaway MD in OV> 02/06/25 1238 DD/ 1150 TD/TT: 02/06/25 1156 Car Painter: Procedure Note Donotuseinterpreter, Image - 02/06/[address] [address] XRay Report Signed Patient: Dora FernandezMR#: [id number] 005 : 1970Acct:[id number] Age/Sex: 54 / FADM Date: 02/06/25 Loc: [facility] Attending Dr: Edwin Benitez MD Ordering Physician: Edwin Benitez MD Date of Service: 02/06/25 Procedure(s): XR foot RT min 3V Accession Number(s): [id number] cc: Edwin Benitez MD EXAMINATION: XR FOOT, [...] Riley Dunaway MD 02/06/2025 12:38 PM EDT Dictated By: Riley Dunaway MD Signed By: <Electronically signed by Riley Dunaway MD in OV> 02/06/25 1238 DD/ 1150 TD/TT: 02/06/25 1156 Car Painter: us Edwin Zuleta MD IMG XR PROCEDURES Fin al Result * (ABNORMAL) CBC auto differential (02/06/2025 11:13 AM EDT) White Blood Count 6.6 4.8 - 10.8 X10*3/uL [facility] Red Blood Count 4.26 4.20 - 5.50 X10*6/uL [facility] Hemoglobin 11.6(L) 12.0 - 16.0 g/dl [facility] Hematocrit 35.6(L) 37.0 - 47.0 % [facility] Mean Corpuscular Volume 83.6 80.0 - 98.0 fL [facility] Mean Corpuscular Hemoglobin 27.2 27.0 - 33.0 pg [facility] Mean Corpuscular HGB Conc 32.6 31.0 - 35.0 g/dl [facility] Red Cell Distribution Width 13.1 11.0 - 16.0 % [facility] Platelet Count 265 160 - 400 X10*3/uL [facility] Mean Platelet Volume 11.7 9.4 - 12.3 fL [facility] Neutrophils Percent Auto 55.6 45 - 73 % [facility] Imm Gran Pct Auto 0.6(H) 0.0 - 0.4 % [facility] Lymphocytes Percent Auto 26.4 20 - 40 % [facility] Monocytes Percent Auto 8.6 2 - 11 % [facility] Eosinophils Percent Auto 8.0(H) 0 - 4 % [facility] Basophils Percent Auto 0.8 0 - 2 % [facility] NRBC Pct Auto 0.0 0.0 - 0.2 /100WBC [facility] Neutrophils Absolute Auto 3.7 2.0 - 8.3 x10*3/uL [facility] Imm Gran Abs Auto 0.04(H) 0.00 - 0.03 X10*3/uL [facility] Lymphocytes Absolute Auto 1.7 1.2 - 4.9 X10*3/uL [facility] Monocytes Absolute Auto 0.6 0.1 - 1.2 X10*3/uL [facility] Eosinophils Absolute Auto 0.5(H) 0.0 - 0.4 X10*3/uL [facility] Basophils Absolute Auto 0.1 0.0 - 0.2 X10*3/uL [facility] NRBC Abs Auto 0.000 0.0 - 0.012 X10*3/uL [facility] 02/06/2025 11:1 3 AM EDT 02/06/2025 12:56 PM EDT us Generic External Data Provider LAB BLOOD ORDERAB LES Final Result [facility] [address] [place] [phone] * (ABNORMAL) Sed Rate by Modified Westergren (02/06/2025 11:13 AM EDT) Erythrocyte Sedimentation Rate 21(H) 0 - 20 MM/HR [facility] Comment:Patients with polycy themia and many hemoglobin abnormalitiesmay have depressed sed rates whereas patients with anemiamay have elevated sed rates. 02/06/2025 11:1 3 AM EDT 02/06/2025 12:56 PM EDT Generic External Data Provider LAB BLOOD ORDERAB LES Final Result Performing Organization Address [facility]/ZIP Co de Phone Number [facility] [address] [place] [phone] * (ABNORMAL) C-reactive Protein (02/06/2025 11:13 AM EDT) C Reactive Protein 2.66(H) < or = 0.50 mg/dL [facility] 02/06/2025 11:1 3 AM EDT 02/06/2025 12:56 PM EDT Anulex External Data Provider LAB BLOOD ORDERAB LES Final Result Performing Organization Address [facility]/ZIP Co de Phone Number [facility] [address] [place] [phone] * (ABNORMAL) Hemoglobin A1c (02/06/2025 11:13 AM EDT) Hemoglobin A1c 7.2(H) <6.0 % [facility] Comment:Hemoglobin A1C Refer ence Range Adults: 4.8 - 6.0 % Non diabetic: < 6.0 % Goal: < 7.0 %Additional Action Suggested: > 8.0 %Note: Hemoglobin A1c results are invalid for patients with abnormal amounts of HbF. Blood transfusions may impact the HbA1c concentration in the patient sample. Estimated Average Glucose 160 mg/dL [facility] Comment:eAG = Estimated ave rage glucose which is %A1C expressed asaverage glucose, using the formula of the L3C-CcthnsjGmcamgk Glucose study (ADAG), Diabetes Care, Vol.31,#8,2007 02/06/2025 11:1 3 AM EDT 02/06/2025 12:56 PM EDT us Generic External Data Provider LAB BLOOD ORDERAB LES Final Result Performing Organization Address [facility] Co de Phone Number [facility] [address] [place] [phone] * Albumin, Random Urine W/Creatinine (01/27/2025 9:31 AM EDT) Creatinine, Urine 168.19 mg/dL [facility] Microalbumin Urine 17.0 mg/L [facility] Microalbum Creatinine Ratio Ur 10.1 <30 ug/mg cr [facility] Comment:Albumin/Creatinine R atio Reference Ranges: Normal: < 30 ug/mg creatinine Microalbuminuria: 30 - 300 ug/mg creatinineClinical Albuminuria: > 300 ug/mg creatinine Urine (Urine, Random) 01/27/2025 9:31 AM EDT 01/27/2025 11:14 AM EDT us Edwin Zuleta MD LAB URINE ORDERABLES Final Result Performing Organization Address [facility] Co de Phone Number [facility] [address] [place] [phone] * Lipid Panel, Standard (01/27/2025 9:31 AM EDT) Triglycerides 64 <150 mg/dL [facility] Comment:Desirable Triglyceri de: less than 150 mg/dLBorderline High Triglyceride 150-199 mg/dLHigh Triglyceride: 200-499 mg/dLVery High Triglyceride: greater than or equal to 5OO mg/dL Cholesterol 134 <200 mg/dL [facility] Comment:Desirable Cholestero l: less than 200 mg/dLBorderline High Cholesterol: 200-239 mg/dLHigh Cholesterol: greater than 239 mg/dL LDL Cholesterol Calculated 61 <100 mg/dL [facility] Comment:Desirable LDL: less than 100 mg/dLNear Optimal/Above Optimal LDL: 110- 129 mg/dLBorderline High LDL: 130-159 mg/dLHigh LDL: 160-189 mg/dLVery High LDL: greater than or equal to 190 mg/dL HDL Cholesterol 61 >40 mg/dL [facility] Comment:Desirable HDL: great er than 40 mg/dL Note: This HDL assay may give artificially low results in patients with liver disease. Blood Venous blood specimen / Unknown 01/27/2025 9:31 AM EDT 01/27/2025 11:22 AM EDT us Edwin Zuleta MD LAB BLOOD ORDERABLES Final Result [facility] [address] [place] [phone] * (ABNORMAL) Comprehensive Metabolic Panel (01/27/2025 9:31 AM EDT) Sodium 142 135 - 145 mmol/L [facility] Potassium 4.5 3.3 - 5.1 mmol/L [facility] Chloride 102 96 - 108 mmol/L [facility] Carbon Dioxide 31(H) 22 - 29 mmol/L [facility] Anion Gap 14 12 - 20 [facility] Urea Nitrogen (BUN) 28(H) 9 - 16 mg/dL [facility] Creatinine, Serum 1.35 0.5 - 1.4 mg/dL [facility] Estimated Glomerular Filt Rate 41 [facility] Comment:Chronic Kidney Disea se: Estimated GFR < 60 mL/min/1.38n1Ymumlt Kidney Disease: Estimated GFR < 15 mL/min/1.73m2 Glucose 108 60 - 115 mg/dL [facility] Calcium 9.3 8.4 - 10.2 mg/dL [facility] Bilirubin, Total 0.3 0.0 - 1.0 mg/dL [facility] Aspartate Amino Transferase 27 5 - 31 U/L [facility] Alanine Aminotransferase 17 0 - 31 U/L [facility] Total Protein 8.1(H) 6.5 - 8.0 g/dL [facility] Albumin Level 4.3 3.5 - 5.0 g/dL [facility] Alkaline Phosphatase 103 39 - 117 U/L [facility] Blood Venous blood specimen / Unknown 01/27/2025 9:31 AM EDT 01/27/2025 11:22 AM EDT us Edwin Zuleta MD LAB BLOOD ORDERABLES Final Result [facility] [address] [place] [phone] * (ABNORMAL) POCT HGB A1C (01/09/2025 12:05 PM EDT) Hemoglobin A1C 7.2(A) 4.0 - 5.7 % QC Media Lot # [id number] Lot# Expiration Date 642, Blood 01/09/2025 12:0 5 PM EDT us Edwin Zuleta MD POINT OF CARE TEST EN TER/EDIT ORDERABLES Final Result * POCT Glucose (01/09/2025 12:03 PM EDT) Glucose Blood, POC 136 60 - 200 mg/dL QC Media Lot # [id number] Lot# Expiration Date [id number] Blood Capillary blood specimen / Unknown 01/09/2025 12:03 PM EDT us Edwin Zuleta MD POINT OF CARE TEST EN TER/EDIT ORDERABLES Final Result * BI Mammogram Screening Tomosynthesis Bilateral (09/04/2023 11:35 AM EDT) Anatomical Region Laterality Modality Breast Bilateral Mammography 09/04/2023 11:3 5 AM EDT Narrative 09/26/2023 10:57 PM EDT [address] [place] [address] Mammography Report Signed Patient: Dora Fernandez MR#: [id number] 005 : 1970 Acct:[id number] Age/Sex: 53 / F ADM Date: 09/04/23 Loc: HO.MAMMO Attending Dr: Edwin Benitez MD Ordering Physician: Edwin Benitez MD Resu lts: 1Negative Date of Service: 09/04/23 Follow Up: 1 Year From Orig inal Mammogram Procedure(s): MM tomosynthesis screening BI Accession Number(s): [id number] cc: Edwin Benitez MD EXAMINATION: MM SCREENING DIGITAL BREAST TOMOSYNTHESIS, BILATERAL CLINICAL INFORMATION: Screening. Asymptomatic. COMPARISON: Mammography: This study is compared with prior exams dating back to 2019. TECHNIQUE: Digital breast tomosynthesis is performed in both the craniocaudal and mediolateral oblique views along with computer-aided detection (CAD). Synthesized 2D images are generated from the tomosynthesis. FINDINGS: The breasts are almost entirely fatty (ACR BI-RADS breast composition Category a). There are no significant masses, abnormal calcifications, or other abnormalities. MM/MM tomosynthesis screening BI IMPRESSION: No mammographic evidence of malignancy. ASSESSMENT: BI-RADS BI-RADS 1 - Negative RECOMMENDATION: Routine annual mammography screening. 1 year F/U This examination should not preclude the clinical evaluation of a suspicious palpable abnormality. This patient's information was entered into a reminder system with a target due date for their next mammogram. Dictated By: Cecelia Sol MD Signed By: <Electronically signed by Cecelia Sol MD in OV> 09/26/23 7341 DD/ 1135 TD/TT: Car Painter: Procedure Note Donotuseinterpreter, Image - 09/26/[address] [place] [address] Mammography Report Signed Patient: Dora FernandezMR#: [id number] 005 : 1970Acct:[id number] Age/Sex: 53 / FADM Date: 09/04/23 Loc: HORejiMAMMO Attending Dr: Edwin Benitez MD Ordering Physician: Edwin Benitez MDResu lts: 1Negative Date of Service: 09/04/23Follow Up: 1 Year From Orig ina Mammogram Procedure(s): MM tomosynthesis screening BI Accession Number(s): [id number] cc: Edwin Benitez MD EXAMINATION: MM SCREENING DIGITAL BREAST TOMOSYNTHESIS, BILATERAL CLINICAL INFORMATION: Screening. Asymptomatic. COMPARISON: Mammography: This study is compared with prior exams dating back to 2019. TECHNIQUE: Digital breast tomosynthesis is performed in both the craniocaudal and mediolateral oblique views along with computer-aided detection (CAD). Synthesized 2D images are generated from the tomosynthesis. FINDINGS: The breasts are almost entirely fatty (ACR BI-RADS breast composition Category a). There are no significant masses, abnormal calcifications, or other abnormalities. MM/MM tomosynthesis screening BI IMPRESSION: No mammographic evidence of malignancy. ASSESSMENT: BI-RADS BI-RADS 1 - Negative RECOMMENDATION: Routine annual mammography screening. 1 year F/U This examination should not preclude the clinical evaluation of a suspicious palpable abnormality. This patient's information was entered into a reminder system with a target due date for their next mammogram. Dictated By: Cecelia Sol MD Signed By: <Electronically signed by Cecelia Sol MD in OV> 09/26/23 2253 DD/ 1135 TD/TT: Car Painter: us Edwin Zuleta MD IMG BI PROCEDURES Fin al Result * HEPATITIS C AB W/REFL TO HCV RNA, QN, PCR (02/25/2022 9:25 AM EDT) HEPATITIS C ANTIBODY NON-REACT REMI NON-REACT REMI [facility] INDEX 0.08 <1.00 [facility] Comment: HCV antibody was non-reactive. There is no laboratory evidence of HCV infection. In most cases, no further action is required. However, if recent HCV exposure is suspected, a test for HCV RNA (test code 96743) is suggested. For additional information please refer to http://education.[employer]faq/RCS43z5 (This link is being provided for informational/ educational purposes only.) 02/25/2022 9:25 AM EDT Edwin Zuleta MD HISTORICAL/NON ORDERA BLE LABS Final Result [facility] [address] [place] [address], * Hm Colonoscopy (12/25/2018 7:41 AM EDT) Historical Provider HEALTH MAINTENANCE Final Result from Last 3 Months or Most Recently Relevant to Health Maintenance Insurance [facility] < 65 ALYSA CHAN [id number] Care Teams Stemming Machine Operator Relationship Specialty Start Date End Date Edwin Kirk MD [address], [place] [phone] PCP - General Internal Medicine 03/31/14 Isa Curry PharmD [address], [place] [phone] Pharmacist Internal Medicine 09/05/24
--- OUTSIDE RECORDS SUMMARY | 2025-02-11 08:44 | XMS_ITS | Encounter Summary ---
Author Organization [employer] Address 75 [facility] 7t [place] [address] Care Team Providers Care Java Manager Name Role Phone Edwin Kirk MD Primary Care Provide r Isa Curry PharmD Unavailable [phone] Reason for Visit * Reason Onset Date Comments Hospital Follow-up 06/26/2024 Encounter Details Date Type Department Care Team ([facility] st Contact Info) Description 06/26/2024 Telephone [facility] MED[facility]INE [address] [place] [address] Edwin Kirk MD [address] [place], [place] [phone] Hospital Follow-up Social History Tobacco Use Types Packs/Day Years [...] encounter Miscellaneous Notes * Telephone Encounter - Rory Calderon - 06/26/2024 3:03 PM EST Tc from pt requesting a HDF appt. Hospital: [facility] Date of admission: 06/24/24 Discharge date: 06/26/24 Diagnosed: Foot infection *Send message to [place] Clinical Care Coordinators documented in this encounter Plan of Treatment Upcoming Encounters Date Type Department Care Team (Late st Contact Info) Description 03/20/2025 9:30 AM EDT Medication Management [facility] MED[facility]INE [address] [place] [address] Isa Curry, Vinod [address] [place] [address] 03/27/2025 10:00 AM EDT Office Visit [facility] [address] [place] [address] Edwin Kirk MD [address] [place] [address] documented as of this encounter Goals Goal Patient Goal Type Associated Problems Recent Progress Patient-Stated? Author Keep fasting blood glucose between 70 and 130 Result Component Type 2 diabetes mellitus with diabetic neuropathic arthropathy, with long-term current use of insulin Worsening( 5:47 PM EDT) No Maximo Brito, GurmeetD documented as of this encounter Visit Diagnoses Not on filedocumented in this encounter Additional Health Concerns Assessment Noted Time PHQ-9 Depression Total Score: 12 024 11:58 AM EDT documented as of this encounter Care Teams Java Manager Relationship Specialty Start Date End Date Edwin Kirk MD [address] [place] [address] PCP - General Internal Medicine 03/31/14 Isa Curry, Vinod [address] [place] [address] Pharmacist Internal Medicine 09/05/24 [employer] 06/27/24 01/23/25 documented as of this encounter
--- OUTSIDE RECORDS SUMMARY | 2025-02-11 08:44 | XMS_ITS | Patient Health Record ---
Author Organization [facility] Address [address] [place] [address] Care Team Providers Care Photoengraving Apprentice Name Role Phone Garry Zuleta MD, Edwin Primary Care Provide r Unavailable Cristofer Hilario Unavailable [phone] Allergies No Known Allergies Results Component Value Reference Range Notes HEMOGLOBIN A1C (GLYCOHEMOGLO BIN) Reviewed date:07/12/2024 12:53:20 PM Interpretation: Performing Lab: Notes/Report: HEMOGLOBIN A1C % (HH) 13.0 HEMOGLOBIN A1C (GLYCOHEMOGLO BIN) Reviewed date:10/18/2024 01:08:55 PM Interpretation: Performing Lab: Notes/Report: HEMOGLOBIN A1C % (HH) 9.7 HEMOGLOBIN A1C (GLYCOHEMOGLO BIN) Reviewed date:01/24/2025 09:03:55 AM Interpretation: Performing Lab: Notes/Report: HEMOGLOBIN A1C % (HH) 7.2 Reason For Referral No Information Medications Medication SIG (Take, Route, Frequency, Duration) Notes Start Date End Date Status Colace 100 MG 1 capsule as needed Orally Once a day; Duration: 30 day(s) Active buPROPion HCl ER (XL) 300 MG TAKE 1 TABLET BY MOUTH EVERY MORNING Oral; Duration: 30 Active Aspirin EC 81 MG as directed Orally 08/12/2019 Active Doxycycline Hyclate 100 MG 1 tablet Orally Once a day; Duration: 10 day(s) Not-Taking Artificial Tears 0.1-0.3 % as directed Ophthalmic Active Augmentin 500-125 MG 1 tablet Orally every 8 hrs; Duration: 7 day(s) Not-Taking Ammonium Lactate 12 % 1 application Externally Twice a day; Duration: 30 days Active zzzCompression Stockings 20-30mm Hg . . .; Duration: . A ctive flonase 50 mcg/act A ctive Vitamin D3 50 MCG (2000 UT) TAKE 1 CAPSULE BY MOUTH EVERY MORNING Oral; Duration: 30 Active Acarbose 50 MG as directed Orally Active Trulicity Not-Taking Ozempic Active Trulicity 0.75 MG/0.5ML as directed Subcutaneous Not-Taking Toujeo Max SoloStar 40 units bedtime Active NovoLOG 100 UNIT/ML as directed Subcutaneous PRN Active Extra Depth Orthopedic Shoes (1 Pair) with Customized Heat Molded Multidensity Innersoles (3 Pair) as directed Dx: NIDDM/Polyneuropathy (E11.42), Hammertoe Foot Deformity (M20.41,M20.42), Preulcerative Skin Lesion(s) (L85.1 Active Gabapentin 300 MG TAKE 1 CAPSULE BY MOUTH TWICE DAILY IN THE MORNING AND AT BEDTIME Oral; Duration: 30 Not-Taking traMADol HCl 50 MG 1 tablet as needed Orally Once a day Active Simvastatin 10 MG 1 tablet in the evening Orally Once a day; Duration: 30 day(s) 08/12/2019 Active OXcarbazepine 300 MG TAKE 1 TABLET BY MOUTH TWICE DAILY IN THE MORNING AND IN THE EVENING Oral; Duration: 30 Active Fluticasone Propionate 50 MCG/ACT 1 spray in each nostril Nasally Once a day; Duration: 30 day(s) Active Escitalopram Oxalate 10 MG TAKE 1 TABLET BY MOUTH AT BEDTIME Oral; Duration: 30 Active Glucose 4 GM as directed Orally Active traZODone HCl 50 MG 1 tablet at bedtime as needed Orally Once a day; Duration: 30 day(s) Not-Taking Omeprazole 20 MG 1 capsule 30 minutes before morning meal Orally Once a day; Duration: 30 day(s) 08/12/2019 Active Neurontin 300 MG 1 capsule Orally Once a day; Duration: 30 day(s) Active Lisinopril 10 MG 1 tablet Orally Once a day; Duration: 30 day(s) 08/12/2019 Active Lexapro 10 MG 1 tablet Orally Once a day; Duration: 30 day(s) Active Immunizations Vaccine Route Administration Date Status Comme nts COVID-19 Moderna Vaccine Unknown 08/11/2020 Administere d COVID-19 Moderna Vaccine Unknown 09/08/2020 Administere d Influenza Unknown 02/18/2019 Administered Influenza Unknown 11/18/2019 Administered Influenza Unknown 03/19/2024 Administered Social History Tobacco Use: Social History [...] ast year? 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) Active confirmed Response to treatment - Unresolved Vital Signs Blood pressure diastolic 65 mm Hg 01/24/2025 Height 5ft9in in 01/24/2025 Blood pressure systolic 128 mm Hg 01/24/2025 Weight 360 lbs 01/24/2025 BMI 53.16 kg/m2 01/24/2025 Procedures Procedure Date Ordered Date Performed Result Body Sit e 90467-SLUSGXF NAIL, 6 OR MORE 04/05/2024 N/A 28693-UCKD SKIN LESIONS, OVER 4 04/05/2024 N/A 53236-JIGIENN NAIL, 6 OR MORE 07/12/2024 N/A 66300-BSBTEVI SKIN/TISSUE 07/12/2024 N/A 26402-BYSP SKIN LESIONS, OVER 4 07/12/2024 N/A 60502-ZMYPPSG NAIL, 6 OR MORE 10/18/2024 N/A 00492-QDBNHPA SKIN/TISSUE 10/18/2024 N/A 09860-MYEU SKIN LESIONS, OVER 4 10/18/2024 N/A 54600-KXWBUWV NAIL, 6 OR MORE 01/24/2025 N/A 22387-HGDKFJM SKIN/TISSUE 01/24/2025 N/A 41054-VDLH SKIN LESIONS, OVER 4 01/24/2025 N/A Encounters Encounter Location Date Provider Diagnosis [address] [address] 04/05/2024 Cristofer Hilario Type 2 diabetes mellitus with diabetic polyneuropathy E11.42 ; Tinea unguium B35.1 ; Other hammer toe(s) (acquired), right foot M20.41 and Other hammer toe(s) (acquired), left foot M20.[address] [address] 07/12/2024 Cristoferreyna Hilario Type 2 diabetes mellitus with diabetic polyneuropathy E11.42 ; Tinea unguium B35.1 ; Other hammer toe(s) (acquired), right foot M20.41 ; Other hammer toe(s) (acquired), left foot M20.42 and Neuropathic ulcer of right foot with fat layer exposed L97.[address] [address] 10/18/2024 Cristofer Hilario Type 2 diabetes mellitus with diabetic polyneuropathy E11.42 ; Tinea unguium B35.1 and Neuropathic ulcer of right foot with fat layer exposed L97.[address] [address] 01/24/2025 Cristofer Hilario Type 2 diabetes mellitus with diabetic polyneuropathy E11.42 ; Tinea unguium B35.1 and Neuropathic ulcer of right foot with fat layer exposed L97.[address] [address] 01/24/[address] [address] 04/05/2024 Cristofer Hilario Assessments Encounter Date Diagnosis (ICD Code) Assessment Notes Treatment Notes Treatment Clinical Notes Section Notes 01/24/2025 Type 2 diabetes mellitus with diabetic polyneuropathy (ICD-10 - E11.42) 01/24/2025 Tinea unguium (ICD-10 - B35.1) 10/18/2024 Type 2 diabetes mellitus with diabetic polyneuropathy (ICD-10 - E11.42) 10/18/2024 Tinea unguium (ICD-10 - B35.1) 04/05/2024 Type 2 diabetes mellitus with diabetic polyneuropathy (ICD-10 - E11.42) 04/05/2024 Tinea unguium (ICD-10 - B35.1) 07/12/2024 Type 2 diabetes mellitus with diabetic polyneuropathy (ICD-10 - E11.42) 07/12/2024 Tinea unguium (ICD-10 - B35.1) 07/12/2024 Other hammer toe(s) (acquired), right foot (ICD-10 - M20.41) Patient Educated with: DIABETIC FOOT CARE INSTRUCTIONS. pdf (DIABETIC FOOT CARE INSTRUCTIONS. pdf) 04/05/2024 Other hammer toe(s) (acquired), right foot (ICD-10 - M20.41) Patient Educated with: DIABETIC FOOT CARE INSTRUCTIONS. pdf (DIABETIC FOOT CARE INSTRUCTIONS. pdf) 10/18/2024 Neuropathic ulcer of right foot with fat layer exposed (ICD-10 - L97.512) Response to treatment - Unresolved Patient Educated with: WOUND CARE INSTRUCTIONS. pdf (WOUND CARE INSTRUCTIONS. pdf) 01/24/2025 Neuropathic ulcer of right foot with fat layer exposed (ICD-10 - L97.512) Response to treatment - Unresolved Patient Educated with: WOUND CARE INSTRUCTIONS. pdf (WOUND CARE INSTRUCTIONS. pdf) 04/05/2024 Other hammer toe(s) (acquired), left foot (ICD-10 - M20.42) 07/12/2024 Other hammer toe(s) (acquired), left foot (ICD-10 - M20.42) 07/12/2024 Neuropathic ulcer of right foot with fat layer exposed (ICD-10 - L97.512) Response to treatment Nonapplicable Patient Educated with: WOUND CARE INSTRUCTIONS. pdf (WOUND CARE INSTRUCTIONS. pdf) Plan Of Treatment Pending Test Test Name Order Date X ray : Foot, right 3V 04/13/2022 30678-KOMZOJE NAIL, 6 OR MORE 08/29/2022 89367-POYIVGK NAIL, 6 OR MORE 03/02/2022 95661-ZGZBEYC NAIL, 6 OR MORE 10/11/2021 61781-KEMWSPA NAIL, 6 OR MORE 12/22/2021 38761-YDHRXBX NAIL, 6 OR MORE 11/02/2022 76684-JCTDLXR NAIL, 6 OR MORE 02/23/2023 43130-YWUAWUB NAIL, 6 OR MORE 05/16/2023 88935-FQDCQNK NAIL, 6 OR MORE 07/28/2023 85599-WRFIFFN NAIL, 6 OR MORE 11/18/2019 66414-EOZYRWG NAIL, 6 OR MORE 06/01/2020 48979-QISZKIK NAIL, 6 OR MORE 08/10/2020 20091-CGOFGBW NAIL, 6 OR MORE 10/19/2020 95014-HYONQIB NAIL, 6 OR MORE 12/28/2020 17546-WYESWTA NAIL, 6 OR MORE 03/15/2021 69798-AGWMTJY NAIL, 6 OR MORE 08/02/2021 76332-UBBFYKH NAIL, 6 OR MORE 10/06/2023 63828-DGVIUYH NAIL, 6 OR MORE 04/05/2024 50139-SOCURME NAIL, 6 OR MORE 07/12/2024 38125-PBECJFR NAIL, 6 OR MORE 10/18/2024 41133-RYINQSC NAIL, 6 OR MORE 01/24/2025 96448-MMMHUYT NAIL, 6 OR MORE 02/03/2020 17789-JJCYDJU NAIL, 6 OR MORE 05/24/2021 94476-AYUYVFD NAIL, 1-5 08/12/2019 42213- Debride <25 sq cm 06/01/2020 09471- Debride <25 sq cm 02/03/2020 51175- Debride <25 sq cm 04/13/2022 21288-ZQTBTHT SKIN/TISSUE 07/12/2024 32095-IHVLGQX SKIN/TISSUE 01/24/2025 42987-CSOFEFG SKIN/TISSUE 10/18/2024 21827-YJQFNCD SKIN/TISSUE 05/16/2023 92230-CSTW SKIN LESIONS, OVER 4 05/16/20 23 62478-QNTA SKIN LESIONS, OVER 4 07/28/19 24 24304-PRQJ SKIN LESIONS, OVER 4 02/24/20 23 42855-AQPB SKIN LESIONS, OVER 4 11/03/19 23 02316-BFOW SKIN LESIONS, OVER 4 12/23/19 35300-BWYI SKIN LESIONS, OVER 4 10/12/19 02802-SVJO SKIN LESIONS, OVER 4 03/02/20 70165-BWVX SKIN LESIONS, OVER 4 08/30/19 23755-SBDZ SKIN LESIONS, OVER 4 06/01/20 73985-HMKB SKIN LESIONS, OVER 4 08/10/19 93554-SHVV SKIN LESIONS, OVER 4 11/18/19 03231-LWSA SKIN LESIONS, OVER 4 08/02/19 88545-MCLT SKIN LESIONS, OVER 4 03/15/20 53778-EMOC SKIN LESIONS, OVER 4 12/29/19 51318-UMPW SKIN LESIONS, OVER 4 10/20/19 16026-XHJR SKIN LESIONS, OVER 4 10/19/19 61032-USTY SKIN LESIONS, OVER 4 01/25/20 26806-DAJW SKIN LESIONS, OVER 4 02/03/20 58525-LROC SKIN LESIONS, OVER 4 05/24/20 78762-WGOO SKIN LESIONS, OVER 4 07/12/19 07013-IOLG SKIN LESIONS, OVER 4 04/05/20 59735-UESJ SKIN LESIONS, OVER 4 10/06/19 24 42439-RNZI SKIN LESIONS, 2 TO 4 08/12/19 89129-Hbxn. Subungual Hematoma 3 Next Appt Details Provider Name:Cristofer Hilario , 05/13/2025 01:45:00 PM, [address] [place] [address], [phone], Insurance Providers Payer Name Payer Address Payer Phone Subscriber Number Group Number Insured Name Patient Relationship to Insured Coverage Start Date Coverage End Date [facility] SCO Claims [address] ALYSA Payne [id number] Dora Fernandez Self - patient is the [...] Diabetic foot Ulcer Surgical History Surgery Date(Month/Year) Amputation, T6, T7 Hospitalization History Reason Date(Month/Year) [facility]- infection 06/2024
--- OUTSIDE RECORDS SUMMARY | 2025-02-11 08:44 | XMS_ITS | Encounter Summary ---
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) Procedures MR Foot w/ and w/o Contrast Right Franklin Edwards MD [address] [place] [address] Phone: tel: fax: [address] Phone: tel: fax: Referral ID Status Reason Start Date Expiration Date V isits Requested Visits Authorized [id number] Pending Review 02/06/2025 02/06/2026 1 1 Encounter Details Date Type Department Care Team (Late st Contact Info) Description 02/06/2025 Orders Only [facility] [address] [place], [place] [phone] Franklin Edwards MD [address] [place], [place] [phone] 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) (Primary Dx) Social History Tobacco Use Types Packs/Day Years [...] Description 03/20/2025 9:30 AM EDT Medication Management [facility] MEDICINE [address] [place] [address] Isa Curry, PharmD [address] [place], [place] [phone] 03/27/2025 10:00 AM EDT Office Visit [facility]INE [address] [place] [address] Edwin Kirk MD [address] [place] [address] Scheduled Orders Name Type Priority Associated Diagnoses Orde r Schedule MR Foot w/ and w/o Contrast Right Imaging STAT 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
--- OUTSIDE RECORDS SUMMARY | 2025-02-11 08:44 | XMS_ITS | Encounter Summary ---
Author Organization [employer] Address [address] [facility] 7t [place] [address] Care Team Providers Care Hand Mixer Name Role Phone Edwin Kirk MD Primary Care Provide r Isa Curry PharmD Unavailable [phone] Reason for Visit * Reason Comments Med Refill Encounter Details Date Type Department Care Team ([facility] st Contact Info) Description 12/26/2023 Refill [facility] MEDICINE [address] [place] [address] Edwin Kirk MD [address] [place], [place] [phone] Diabetic polyneuropathy associated with type 2 diabetes mellitus (CMS/HCC); Low vitamin D level Social History Tobacco Use Types Packs/Day Years [...] Description 03/20/2025 9:30 AM EDT Medication Management [facility] MEDICINE [address] [place] [address] Isa Curry PharmD [address] [place] [phone] 03/27/2025 10:00 AM EDT Office Visit [facility] MEDICINE [address] [place] [address] Edwin Kirk MD [address] [place] [phone] documented as of this encounter Visit Diagnoses Diagnosis Diabetic polyneuropathy associated with type 2 diabetes mellitus ([facility]) Low vitamin D level documented in this encounter Care Teams Hand Mixer Relationship Specialty Start Date End Date Edwin Kirk MD [address] [place] [phone] PCP - General Internal Medicine 03/31/14 Isa Curry PharmD [address] [place] [address] [phone] Pharmacist Internal Medicine 09/05/24 [employer] [facility] 06/27/24 01/23/25 documented as of this encounter
--- OUTSIDE RECORDS SUMMARY | 2025-02-11 08:44 | XMS_ITS | Encounter Summary ---
Author Organization [employer] [facility] Address 75 [facility] 7t [place] [address] Care Team Providers Care Nurse Substance Abuse Name Role Phone Edwin Kirk MD Primary Care Provide r Isa Curry PharmD Unavailable [phone] Encounter Details Date Type Department Care Team (Late st Contact Info) Description 10/27/2022 Abstract [facility] MEDICINE [address] [place] [address] Edwin Kirk MD [address] [place], [place] [phone] Social History Tobacco Use Types Packs/Day Years Used Date Smoking Tobacco: Never Passive Smoke Exposure: Never Smokeless Tobacco: Never Alcohol Use Standard Drinks/Week Comments Not Currently 0 (1 standard drink = 0.6 oz pur e alcohol) Depression Answer Date Recorded Patient Health Questionnaire-2 [...] Description 03/20/2025 9:30 AM EDT Medication Management [facility] MED[facility]INE [address] [place] [address] Isa Curry, PharmD [address] [place], [place] [phone] 03/27/2025 10:00 AM EDT Office Visit [facility] MED[facility]INE [address] [place], [place] [phone] Edwin Kirk MD [address] [place], [place] [phone] documented as of this encounter Visit Diagnoses Not on filedocumented in this encounter Care Teams Nurse Substance Abuse Relationship Specialty Start Date End Date Edwin Kirk MD [address] [place] [address] [phone] PCP - General Internal Medicine 03/31/14 Isa Curry, Vinod [address] [place] [address] [phone] Pharmacist Internal Medicine 09/05/24 [employer] [facility] 06/27/24 01/23/25 documented as of this encounter
--- OUTSIDE RECORDS SUMMARY | 2025-02-11 08:44 | XMS_ITS | Encounter Summary ---
Author Organization [employer] Address 75 [facility] 7t [place] [address] Care Team Providers Care Licensed Staff Mft Name Role Phone Edwin Kirk MD Primary Care Provide r Isa Curry PharmD Unavailable [phone] Encounter Details Date Type Department Care Team ([facility] Contact Info) Description 12/12/2024 Telephone [facility] MEDICINE [address] [place] [address] Edwin Kirk MD [address] [place], [place] [phone] Social History Tobacco Use Types Packs/Day Years [...] Description 03/20/2025 9:30 AM EDT Medication Management [facility] MEDICINE [address] [place] [phone] Isa Curry, PharmD [address] [place] [address] 03/27/2025 10:00 AM EDT Office Visit [facility] MEDICINE [address] [place] [address] Edwin Kirk MD [address] [place] [address] documented as of this encounter Goals Goal [...] documented as of this encounter Care Teams Licensed Staff Mft Relationship Specialty Start Date End Date Edwin Kirk MD [address] [place] [address] PCP - General Internal Medicine 03/31/14 Isa Curry PharmD [address] [place] [address] Pharmacist Internal Medicine 09/05/24 [employer] 06/27/24 01/23/25 documented as of this encounter
--- OUTSIDE RECORDS SUMMARY | 2025-02-11 08:44 | XMS_ITS | Encounter Summary ---
Author Organization [employer] [facility] Address [address] [place] [address] 7 [place] [address] Care Team Providers Care Kindergarten Assistant Name Role Phone Edwin Kirk MD Primary Care Provide r Isa Curry PharmD Unavailable [phone] Encounter Details Date Type Department Care Team (Late st Contact Info) Description 11/23/2022 [facility] Health Information Management [address] [place] [address] Edwin Kirk MD [address] [place] [address] Social History Tobacco Use Types Packs/Day Years [...] Description 03/20/2025 9:30 AM EDT Medication Management [facility] MEDICINE [address] [place] [address] Isa Curry, PharmD [address] [place] [address] 03/27/2025 10:00 AM EDT Office Visit [facility] MEDICINE [address] [place], [place] [phone] Edwin Kirk MD [address] [place], [place] [phone] documented as of this encounter Visit Diagnoses Not on filedocumented in this encounter Care Teams Kindergarten Assistant Relationship Specialty Start Date End Date Edwin Kirk MD [address] [place] [address] [phone] PCP - General Internal Medicine 03/31/14 Isa Curry PharmD [address] [place] [address] [phone] Pharmacist Internal Medicine 09/05/24 [employer] [facility] 06/27/24 01/23/25 documented as of this encounter
--- OUTSIDE RECORDS SUMMARY | 2025-02-11 08:44 | XMS_ITS | Encounter Summary ---
Author Organization [employer] Address [address] [facility] 7t [place] [address] Care Team Providers Care Automation Engineering Technician Name Role Phone Edwin Kirk MD Primary Care Provide r Isa Curry PharmD Unavailable [phone] Encounter Details Date Type Department Care Team (Latest Contact Info) Description 02/06/2025 Travel Social History Tobacco Use Types Packs/Day Years [...] Description 03/20/2025 9:30 AM EDT Medication Management [facility] MEDICINE [address] [place] [address] Isa Curry PharmD [address] [place] [phone] 03/27/2025 10:00 AM EDT Office Visit [facility] [address] [place] [address] Edwin Kirk MD [address] [place] [address] [phone] documented as of this encounter Goals Goal Patient Goal Type Associated Problems Recent Progress Patient-Stated? Author Keep fasting blood glucose between 70 and 130 Result Component Type 2 diabetes mellitus with diabetic neuropathic arthropathy, with long-term current use of insulin Worsening( 5:47 PM EDT) No Maximo Brito PharmD documented as of this encounter Visit Diagnoses Not on filedocumented in this encounter Additional Health Concerns Assessment Noted Time PHQ-9 Depression Total Score: 13 025 10:20 AM EST documented as of this encounter Care Teams Automation Engineering Technician Relationship Specialty Start Date End Date Edwin Kirk MD [address] [place] [address] PCP - General Internal Medicine 03/31/14 Isa Curry PharmD [address] [place] [address] Pharmacist Internal Medicine 09/05/24 documented as of this encounter
--- OUTSIDE RECORDS SUMMARY | 2025-02-11 08:44 | XMS_ITS | Encounter Summary ---
Author Organization [employer] Address 75 [facility] 7t [place] [address] Care Team Providers Care Citrix Lead Name Role Phone Edwin Kirk MD Primary Care Provide r Isa Curry PharmD Unavailable [phone] Encounter Details Date Type Department Care Team ([facility] st Contact Info) Description 10/12/2023 Orders Only [facility] MEDICINE [address] [place] [address] ProviderChasity MD Social History Tobacco Use Types [...] Description 03/20/2025 9:30 AM EDT Medication Management [facility] MEDICINE [address] [place] [address] Isa Curry PharmD [address] [place] [address] 03/27/2025 10:00 AM EDT Office Visit [facility] MEDICINE [address] [place] [address] [phone] Edwin Kirk MD [address] [place] [address] [phone] documented as of this encounter Procedures Procedure Name Priority Date/Time Associated Diagnosis Comments HM COLONOSCOPY Routine 12/25/2018 7:41 AM EDT documented in this encounter Results * Hm Colonoscopy (12/25/2018 7:41 AM EDT) Historical Provider HEALTH MAINTENANCE Final Result documented in this encounter Visit Diagnoses Not on filedocumented in this encounter Care Teams Citrix Lead Relationship Specialty Start Date End Date Edwin Kirk MD [address] [place] [address] [phone] PCP - General Internal Medicine 03/31/14 Isa Curry PharmD [address] [place] [address] [phone] Pharmacist Internal Medicine 09/05/24 [employer] 06/27/24 01/23/25 documented as of this encounter
--- OUTSIDE RECORDS SUMMARY | 2025-02-11 08:44 | XMS_ITS | Encounter Summary ---
Author Organization [employer] Address 75 [facility] 7 [place] [address] Care Team Providers Care Skein Spooler Name Role Phone Edwin Kirk MD Primary Care Provide r Isa Curry PharmD Unavailable [phone] Reason for Visit * Reason Comments Med Refill Encounter Details Date Type Department Care Team ([facility] st Contact Info) Description 12/26/2023 Refill [facility] MEDICINE [address] [place] [address] Annmarie Brewster MD [address] [place] [address] Heartburn Social History Tobacco Use Types Packs/Day Years [...] Description 03/20/2025 9:30 AM EDT Medication Management [facility] MEDICINE [address] [place] [phone] Isa Curry PharmD [address] [place] [address] 03/27/2025 10:00 AM EDT Office Visit [facility] MEDICINE [address] [place] [address] 39[address] Edwin Kirk MD [address] [place] [address] documented as of this encounter Visit Diagnoses Diagnosis Heartburn documented in this encounter Care Teams Skein Spooler Relationship Specialty Start Date End Date Edwin Kirk MD [address] [place] [address] PCP - General Internal Medicine 03/31/14 Isa Curry PharmD [address] [place] [address] Pharmacist Internal Medicine 09/05/24 [employer] 06/27/24 01/23/25 documented as of this encounter
[2025-02-11 08:53] VITALS: BP 103/57; PULSE 92; BMI 51.1
== END 2025-02-11 09:04 | disposition home or self-care (01) ==
LOC: HO.HGS 08:34
PROVIDERS: PCP Internal Medicine; Visit Provider Surgery
DX: L97.519 Non-pressure chronic ulcer of other part of right foot with unspecified severity (principal)
CPT/HCPCS: 99213

== ENCOUNTER → 2025-02-11 08:33 | Outpatient (BNVA) | payer OTHER, SELFPAY | PROVIDERS: PCP Internal Medicine; Visit Provider Surgery | DX: L97.519 Non-pressure chronic ulcer of other part of right foot with unspecified severity (principal) | CPT/HCPCS: 99212 ==

== ENCOUNTER 2025-03-06 08:23 | Outpatient (REF) | payer OTHER, SELFPAY ==
--- OUTSIDE RECORDS SUMMARY | 2024-11-05 10:30 | XMS_ITS ---
Author Organization [facility] Address [address] [place] [phone] Care Team Providers Care Stretcher Leveler Operator Helper Name Role Phone Garry Zuleta MD, Edwin Primary Care Provide r Cristofer Owusu Unavailable [phone] Encounters Encounter Location Date Provider Diagnosis [address] [address] 11/05/2024 Cristofer Hilario Plan Of Treatment Next Appt Details Provider Name:Cristofer Hilario , 05/13/2025 01:45:00 PM, [address] [place] [address], [phone], Progress Notes * Dora FERNANDEZDOB:[birth year] (54 yo F)Acc No.[id number]:11/05/2024 Progress Note Patient: Tyler Dora MOSES Provider: Emily Hilario DPM :1970 A ge:54 Y S ex:Female Date:11/05/2024 Address:[address] [place] [address] [id number] Pcp:Edwin Zuleta MD Subjective: * Chief Complaints: [...] 11/05/2024 Generated for Joseph Rockwell on: 0 03/06/2025 09:24 AM EDT
--- NOTE | ~2025-03-06 | MR_ITS ---
EXAM: MRI of the right foot without and with IV contrast TECHNIQUE: Multiplanar multisequence MR imaging was performed through the right foot. INDICATION: Nonpressure chronic ulcer with fat layer exposed rule out osteomyelitis PRIOR: X-ray from February 06, 2025 and MRI from June 25, 2024 IV contrast: 10 mL Gadavist FINDINGS: Lisfranc ligament: The Lisfranc ligament complex is intact and unremarkable. Soft tissues/Archuleta's Neuroma: Focal skin ulceration is noted lateral to the fifth MTP joint and metatarsal head. There is edema and hyperenhancement of the soft tissues extending dorsally to the second metatarsal and plantar to the second web space. There is severe fatty replacement of musculature in the forefoot. There is mild fatty streaking in the musculature of the midfoot. There is no sign of a Archuleta's neuroma. Along the lateral plantar aspect of the distal second digit, there is a circumscribed lesion that is low signal on T1 imaging and high signal on fluid sensitive sequences without clear enhancement. It measures 8 mm long axis, previously 5 mm. The appearance favors a cyst. Metatarsophalangeal (MTP) joint and sesamoids of the great toe: There is a joint effusion. Plantar plate complex and joint capsule structures appear intact. There is deep partial-thickness articular cartilage defect in the plantar central first metatarsal head. Lesser MTP joints & Plantar plates: Second and fourth MTP joints demonstrate borderline joint effusion. There is a fifth MTP joint effusion. Central proper cartilage of the fifth plantar plate complex is attenuated near the base of the fifth proximal phalanx Bones/Marrow: There is decreased signal on the T1 sequences in the marrow of the first proximal phalanx, sparing the head, and involving the head and neck and distal third diaphysis of the fifth metatarsal. On fluid sensitive sequences, there is increased signal throughout the fifth proximal phalanx and extending to the proximal diaphysis of the fifth proximal phalanx. There is a 5 mm degenerative cyst in the medial plantar fifth metatarsal head that is unchanged. After contrast, enhancement is concordant to the T2 signal changes. MR/MR foot RT wo/w con IMPRESSION: Suspected osteomyelitis and septic arthritis involving the fifth MTP joint. There is osteomyelitis throughout the proximal phalanx of the fifth digit sparing the head. There is also osteomyelitis involving the head and neck and distal third diaphysis of the fifth metatarsal. Skin ulceration and superficial cellulitis in the lateral forefoot. No evidence of abscess or myositis. Additionally, there is a partial-thickness defect in the fibrocartilage plantar plate complex of the fifth MTP joint that could be a destructive changes secondary to the septic arthritis. 8 mm cystic lesion lateral to the distal end of the second digit has increased in size from 5 mm. This likely represents a ganglion or other cyst. Chronic fatty replacement of the musculature in the forefoot. Electronically signed by: Riley Dunaway MD 03/06/2025 03:27 PM EDT
--- OUTSIDE RECORDS SUMMARY | 2025-03-06 09:23 | XMS_ITS | Encounter Summary ---
Author Organization [employer] Address 75 [facility] 7t [place] [address] Care Team Providers Care Laborer Pipeline Name Role Phone Edwin Kirk MD Primary Care Provide r Isa Curry PharmD Unavailable [phone] Reason for Visit * Reason Comments Med Refill Encounter Details Date Type Department Care Team ([facility] st Contact Info) Description 12/26/2023 Refill [facility] MEDICINE [address] [place] [address] Edwin Kirk MD [address] [place], [place] [phone] Diabetic polyneuropathy associated with type 2 diabetes [...] Description 03/20/2025 9:30 AM EDT Medication Management [facility] MEDICINE [address] [place] [address] 18[address] Isa Curry PharmD [address] [place] [address] [phone] 03/27/2025 10:00 AM EDT Office Visit [facility] MEDICINE [address] [place] [address] 53[address] Edwin Kirk MD [address] [place] [address] documented as of this encounter Visit Diagnoses Diagnosis Diabetic polyneuropathy associated with type 2 diabetes mellitus ([facility]) Low vitamin D level documented in this encounter Care Teams Laborer Pipeline Relationship Specialty Start Date End Date Edwin Kirk MD [address] [place] [address] [phone] PCP - General Internal Medicine 03/31/14 Isa Curry PharmD [address] [place] [address] [phone] Pharmacist Internal Medicine 09/05/24 [employer] 06/27/24 01/23/25 documented as of this encounter
--- OUTSIDE RECORDS SUMMARY | 2025-03-06 09:23 | XMS_ITS | Encounter Summary ---
Author Organization [employer] Address 75 [facility] 7t [place] [address] Care Team Providers Care Senior Contracts Administrator Name Role Phone Edwin Kirk MD Primary Care Provide r Isa Curry PharmD Unavailable [phone] Encounter Details Date Type Department Care Team ([facility] st Contact Info) Description 10/12/2023 Orders Only [facility] MEDICINE [address] [place] [address] ProviderChasity MD Social History Tobacco Use Types [...] Description 03/20/2025 9:30 AM EDT Medication Management [facility] MEDICINE [address] [place] [address] [phone] Isa Curry PharmD [address] [place] [address] 8[address] 03/27/2025 10:00 AM EDT Office Visit [facility] MEDICINE [address] [place] [address] [phone] Edwin Kirk MD [address] [place] [address] [phone] documented as of this encounter Procedures Procedure Name Priority Date/Time Associated Diagnosis Comments HM COLONOSCOPY Routine 12/25/2018 7:41 AM EDT documented in this encounter Results * Hm Colonoscopy (12/25/2018 7:41 AM EDT) Historical Provider HEALTH MAINTENANCE Final Result documented in this encounter Visit Diagnoses Not on filedocumented in this encounter Care Teams Senior Contracts Administrator Relationship Specialty Start Date End Date Edwin Kirk MD [address] [place] [address] [phone] PCP - General Internal Medicine 03/31/14 Isa Curry PharmD [address] [place] [address] [phone] Pharmacist Internal Medicine 09/05/24 [employer] 06/27/24 01/23/25 documented as of this encounter
--- OUTSIDE RECORDS SUMMARY | 2025-03-06 09:24 | XMS_ITS | Encounter Summary ---
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) Procedures MR Foot w/ and w/o Contrast Right Franklin Edwards MD [address] [place] [address] Phone: tel: fax: [address] Phone: tel: fax: Referral ID Status Reason Start Date Expiration Date V isits Requested Visits Authorized [id number] Canceled 02/06/2025 02/06/2026 1 1 Encounter Details Date Type Department Care Team (Late st Contact Info) Description 02/06/2025 Orders Only [facility] MED [facility] PEDS [address] [place], [place] [phone] Franklin Edwards MD [address] [place], [place] [phone] Ulcer of right foot with necrosis of [...] Medication Management [facility] MEDICINE [address] [place] [address] Isa Curry, PharmD [address] [place], [place] [phone] 03/27/2025 10:00 AM EDT Office Visit [facility] MEDICINE [address] [facility] [place], [place] [phone] Edwin Kirk MD [address] [place] [address] Scheduled Orders Name Type Priority Associated Diagnoses [...] Brito, Vinod documented as of this encounter Procedures Procedure Name Priority Date/Time Associated Diagnosis Comments CALCITONIN Routine 02/06/2025 11:23 AM EDT 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
--- OUTSIDE RECORDS SUMMARY | 2025-03-06 09:24 | XMS_ITS | Encounter Summary ---
Author Organization [employer] Address 75 [facility] 7t [place] [address] Care Team Providers Care Car Sales Associate Name Role Phone Edwin Kirk MD Primary Care Provide r Isa Curry PharmD Unavailable [phone] Reason for Visit * Reason Comments Med Refill Encounter Details Date Type Department Care Team ([facility] st Contact Info) Description 10/25/2024 Refill [facility] MEDICINE [address] [place] [address] Sherrie Carey, ANP [address] [place] [address] Diabetic polyneuropathy associated with type 2 diabetes [...] Description 03/20/2025 9:30 AM EDT Medication Management [facility] MEDICINE [address] [place] [address] 26[address] Isa Curry PharmD [address] [place] [address] 168[address] 03/27/2025 10:00 AM EDT Office Visit [facility] MEDICINE [address] [place] [address] 82121 Edwin Kirk MD [address] [place] [address] 33483 documented as of this encounter Goals Goal [...] documented as of this encounter Care Teams Car Sales Associate Relationship Specialty Start Date End Date Edwin Kirk MD [address] [place] [address] PCP - General Internal Medicine 03/31/14 Isa Curry PharmD [address] [place] [address] Pharmacist Internal Medicine 09/05/24 [employer] 06/27/24 01/23/25 documented as of this encounter
--- OUTSIDE RECORDS SUMMARY | 2025-03-06 09:24 | XMS_ITS | Patient Health Record ---
Author Organization [facility] Address [address] [facility] [place] [address] Care Team Providers Care Char Puller Name Role Phone Garry Zuleta MD, Edwin Primary Care Provide r Unavailable Cristofer Hilario Unavailable [phone] Allergies No Known Allergies Results Component Value [...] Vaccine Route Administration Date Status Comme nts Influenza Unknown 02/18/2019 Administered Influenza Unknown 11/18/2019 Administered Influenza Unknown 03/19/2024 Administered COVID-19 Moderna Vaccine Unknown 08/11/2020 Administere d COVID-19 Moderna Vaccine Unknown 09/08/2020 Administere d Social History Tobacco Use: Social History Observation [...] Problem Acquired hammer toe of right foot (200258017168789 5) Other hammer toe(s) (acquired), right foot (M20.41) Active confirmed Problem Acquired hammer toe of left foot (961028401603009 3) Other hammer toe(s) (acquired), left foot (M20.42) Active confirmed Problem Polyneuropathy due to type 2 diabetes mellitus (244181853) Type 2 diabetes mellitus with diabetic polyneuropathy [...] Ordered Date Performed Result Body Sit e 15338-KMMDAPP NAIL, 6 OR MORE 04/05/2024 N/A 29340-TSMI SKIN LESIONS, OVER 4 04/05/2024 N/A 67847-KTRYKSY NAIL, 6 OR MORE 07/12/2024 N/A 96420-BUAHIHW SKIN/TISSUE 07/12/2024 N/A 07412-YMFH SKIN LESIONS, OVER 4 07/12/2024 N/A 62558-OBQWWBY NAIL, 6 OR MORE 10/18/2024 N/A 97297-YTKDUSO SKIN/TISSUE 10/18/2024 N/A 73057-LJAS SKIN LESIONS, OVER 4 10/18/2024 N/A 35488-MMOKFLY NAIL, 6 OR MORE 01/24/2025 N/A 67001-FHRLBAG SKIN/TISSUE 01/24/2025 N/A 49069-FNCR SKIN LESIONS, OVER 4 01/24/2025 N/A Encounters Encounter Location Date Provider Diagnosis [address] [address] 04/05/2024 Cristofer Hilario Type 2 diabetes mellitus with diabetic polyneuropathy E11.42 ; Tinea unguium B35.1 ; Other hammer toe(s) (acquired), right foot M20.41 and Other hammer toe(s) (acquired), left foot M20.[address] [address] 07/12/2024 Cristoferreyna Hilario Type 2 diabetes mellitus with diabetic polyneuropathy E11.42 ; Tinea unguium B35.1 ; Other hammer toe(s) (acquired), right foot M20.41 ; Other hammer toe(s) (acquired), left foot M20.42 and Neuropathic ulcer of right foot with fat layer exposed L97.[address] [address] 10/18/2024 Cristofer Hilario Type 2 diabetes mellitus with diabetic polyneuropathy E11.42 ; Tinea unguium B35.1 and Neuropathic ulcer of right foot with fat layer exposed L97.[address] [address] 01/24/2025 Cristofer Hilario Type 2 diabetes mellitus with diabetic polyneuropathy E11.42 ; Tinea unguium B35.1 and Neuropathic ulcer of right foot with fat layer exposed L97.[address] [address] 04/05/2024 Cristofer Hilario [address] [address] 01/24/2025 Cristofer Hliario Assessments Encounter Date Diagnosis (ICD Code) Assessment Notes Treatment Notes Treatment Clinical Notes Section Notes 04/05/2024 Type 2 diabetes mellitus with diabetic polyneuropathy (ICD-10 - E11.42) 04/05/2024 Tinea unguium (ICD-10 - B35.1) 07/12/2024 Type 2 diabetes mellitus with diabetic polyneuropathy (ICD-10 - E11.42) 07/12/2024 Tinea unguium (ICD-10 - B35.1) 10/18/2024 Type 2 diabetes mellitus with diabetic polyneuropathy (ICD-10 - E11.42) 10/18/2024 Tinea unguium (ICD-10 - B35.1) 01/24/2025 Type 2 diabetes mellitus with diabetic polyneuropathy (ICD-10 - E11.42) 01/24/2025 Tinea unguium (ICD-10 - B35.1) 01/24/2025 Neuropathic ulcer of right foot with fat layer exposed (ICD-10 - L97.512) Response to treatment - Unresolved Patient Educated with: WOUND CARE INSTRUCTIONS. pdf (WOUND CARE INSTRUCTIONS. pdf) 10/18/2024 Neuropathic ulcer of right foot with fat layer exposed (ICD-10 - L97.512) Response to treatment - Unresolved Patient Educated with: WOUND CARE INSTRUCTIONS. pdf (WOUND CARE INSTRUCTIONS. pdf) 07/12/2024 Other hammer toe(s) (acquired), right foot [...] X ray : Foot, right 3V 04/13/2022 40312-SOFUHLS NAIL, 6 OR MORE 08/29/2022 35919-TTYUSLI NAIL, 6 OR MORE 03/02/2022 75698-EHEWAGC NAIL, 6 OR MORE 11/02/2022 54998-ZNCLPWV NAIL, 6 OR MORE 02/23/2023 81874-YIHFOAS NAIL, 6 OR MORE 05/24/2021 88617-PQULEDK NAIL, 6 OR MORE 08/02/2021 13070-DKHURYS NAIL, 6 OR MORE 10/11/2021 63563-DZXWDDS NAIL, 6 OR MORE 12/22/2021 37786-DUMGLCG NAIL, 6 OR MORE 11/18/2019 93628-CAECSRM NAIL, 6 OR MORE 02/03/2020 36013-PFAQHUX NAIL, 6 OR MORE 06/01/2020 78384-DHKCIXG NAIL, 6 OR MORE 08/10/2020 39860-VUCEPBB NAIL, 6 OR MORE 10/19/2020 54720-EMKBPXH NAIL, 6 OR MORE 12/28/2020 82714-JDCGLHM NAIL, 6 OR MORE 03/15/2021 30399-ISUITTZ NAIL, 6 OR MORE 05/16/2023 69745-XXKOSVM NAIL, 6 OR MORE 07/28/2023 79026-OGHCUID NAIL, 6 OR MORE 10/06/2023 33264-RDHOBIZ NAIL, 6 OR MORE 04/05/2024 96309-CBDZSLI NAIL, 6 OR MORE 07/12/2024 46454-RIETUOL NAIL, 6 OR MORE 10/18/2024 13667-OLWAGUH NAIL, 6 OR MORE 01/24/2025 49458-YWGCIWV NAIL, 1-5 08/12/2019 48985- Debride <25 sq cm 06/01/2020 18835- Debride <25 sq cm 02/03/2020 06523- Debride <25 sq cm 04/13/2022 03165-GSZBVUP SKIN/TISSUE 07/12/2024 13272-AHLHUSU SKIN/TISSUE 01/24/2025 45078-XRERQGE SKIN/TISSUE 10/18/2024 46495-NYAYKXZ SKIN/TISSUE 05/16/2023 67281-PHOC SKIN LESIONS, OVER 4 05/16/20 23 17798-BNZQ SKIN LESIONS, OVER 4 07/28/19 87822-DWJU SKIN LESIONS, OVER 4 04/05/20 69366-YBEW SKIN LESIONS, OVER 4 10/06/19 88272-TRMW SKIN LESIONS, OVER 4 10/19/19 20857-BNXG SKIN LESIONS, OVER 4 01/25/20 25262-XPVD SKIN LESIONS, OVER 4 07/12/19 85528-DTCV SKIN LESIONS, OVER 4 02/03/20 96092-KTYN SKIN LESIONS, OVER 4 06/01/20 59517-XWXC SKIN LESIONS, OVER 4 11/18/19 33221-NXOY SKIN LESIONS, OVER 4 03/15/20 08393-JRGI SKIN LESIONS, OVER 4 12/29/19 32596-MOKO SKIN LESIONS, OVER 4 10/20/19 93166-FLEL SKIN LESIONS, OVER 4 08/10/19 34839-MEDR SKIN LESIONS, OVER 4 12/23/19 42286-LJVA SKIN LESIONS, OVER 4 10/12/19 22786-SFYS SKIN LESIONS, OVER 4 08/02/19 34895-FYWH SKIN LESIONS, OVER 4 05/24/20 21462-ELNM SKIN LESIONS, OVER 4 02/24/20 32652-PGMR SKIN LESIONS, OVER 4 11/03/19 72332-KOMO SKIN LESIONS, OVER 4 03/02/20 18796-OGGA SKIN LESIONS, OVER 4 08/30/19 23 38768-GMYL SKIN LESIONS, 2 TO 4 08/12/19 20 93555-Ewji. Subungual Hematoma 3 Next Appt Details Provider Name:Cristofer Hilario , 05/13/2025 01:45:00 PM, [address] [place] [address], [phone], Insurance Providers Payer Name Payer Address Payer Phone Subscriber Number Group Number Insured Name Patient Relationship to Insured Coverage Start Date Coverage End Date [facility] [employer] Claims [address] [place] [address] [id number] Dora Fernandez Self - patient is the [...] Amputation, T6, T7 Hospitalization History Reason Date(Month/Year) [facility] ER- infection 06/2024
--- OUTSIDE RECORDS SUMMARY | 2025-03-06 09:24 | XMS_ITS | Encounter Summary ---
Author Organization [employer] Address 75 [facility] 7t [place] [address] Care Team Providers Care Visor Installer Name Role Phone Edwin Kirk MD Primary Care Provide r Isa Curry PharmD Unavailable [phone] Reason for Visit * Reason Comments Med Refill Encounter Details Date Type Department Care Team ([facility] st Contact Info) Description 05/17/2024 Refill [facility] MEDICINE [address] [place] [address] Edwin Kirk MD [address] [place] [address] Type 2 diabetes mellitus with diabetic neuropathic arthropathy, with long-term current use of insulin ([facility]) Social History Tobacco Use Types Packs/Day Years [...] Description 03/20/2025 9:30 AM EDT Medication Management [facility] MEDICINE [address] [place] [address] Isa Curry, PharmD [address] [place] [address] 03/27/2025 10:00 AM EDT Office Visit [facility] MEDICINE [address] [place] [address] Edwin Kirk MD [address] [place] [address] documented as of this encounter Goals Goal [...] arthropathy, with long-term current use of insulin ([facility]) documented in this encounter Additional Health Concerns Assessment Noted Time PHQ-9 Depression Total Score: 12 024 11:58 AM EDT documented as of this encounter Care Teams Visor Installer Relationship Specialty Start Date End Date Edwin Kirk MD [address] [place], [place] [phone] PCP - General Internal Medicine 03/31/14 Isa Curry PharmD [address] [place] [address] Pharmacist Internal Medicine 09/05/24 [employer] 06/27/24 01/23/25 documented as of this encounter
--- OUTSIDE RECORDS SUMMARY | 2025-03-06 09:24 | XMS_ITS | Clinical Summary ---
Author Organization [facility] Address [address] [facility] [address] [place] [address] Phone Care Team Providers Care Amusement Or Recreation Card Checker Name Role Phone Edwin Castañeda MD Primary [...] day). Today pt's daughter tells me the Distribution Agent Dr Mckeon cancelled the appointment. EKG today [...] % PVNMA 06/23/2020 us [facility] [id number] LICITED RESULTS Final Result PVNMA from Last 3 Months or Most Recently Relevant to Health Maintenance Insurance MCR ([id number]) MCR ([id number]) Care Teams Amusement Or Recreation Card Checker Relationship Specialty Start Date End Date Edwin Castañeda MD PCP - General 06/29/20
--- OUTSIDE RECORDS SUMMARY | 2025-03-06 09:24 | XMS_ITS | Encounter Summary ---
Author Organization [employer] Address 75 [facility] 7t [place] [address] Care Team Providers Care School Bus Driver/Teacher Assistant Name Role Phone Edwin Kirk MD Primary Care Provide r Isa Curry PharmD Unavailable [phone] Reason for Visit * Reason Comments Med Refill Encounter Details Date Type Department Care Team ([facility] st Contact Info) Description 03/05/2025 Refill [facility] MEDICINE [address] [place] [address] Luh Weston MD [address] [place], [place] [phone] Benign essential hypertension Social History Tobacco Use Types Packs/Day Years [...] 03/20/2025 9:30 AM EDT Medication Management [facility] MEDICINE [address] [place] [address] Isa Curry PharmD [address] [place] [address] 03/27/2025 10:00 AM EDT Office Visit [facility] MEDICINE [address] [place] [address] Edwin Kirk MD [address] [place] [address] documented as of this encounter Goals Goal Patient Goal Type Associated Problems Recent Progress Patient-Stated? Author Keep fasting blood glucose between 70 and 130 Result Component Type 2 diabetes mellitus with diabetic neuropathic arthropathy, with long-term current use of insulin Worsening( 5:47 PM EDT) Maximo Joseph, GurmeetD documented as of this encounter Visit Diagnoses Diagnosis Benign essential hypertension Essential hypertension, benign documented in this encounter Additional Health Concerns Assessment Noted Time PHQ-9 Depression Total Score: 13 025 10:20 AM EST documented as of this encounter Care Teams School Bus Driver/Teacher Assistant Relationship Specialty Start Date End Date Edwin Kirk MD [address] [place] [address] PCP - General Internal Medicine 03/31/14 Isa Curry PharmD [address] [place] [address] Pharmacist Internal Medicine 09/05/24 documented as of this encounter
--- OUTSIDE RECORDS SUMMARY | 2025-03-06 09:24 | XMS_ITS | Encounter Summary ---
Author Organization [employer] Address [address] [facility] 7 [place] [address] Care Team Providers Care Furniture Repairer Name Role Phone Edwni Kirk MD Primary Care Provide r Isa Curry PharmD Unavailable [phone] Reason for Visit * Reason Comments Med Refill Encounter Details Date Type Department Care Team ([facility] st Contact Info) Description 12/26/2023 Refill [facility] MEDICINE [address] [place] [address] Annmarie Brewster MD [address] [place] [address] Heartburn Social History Tobacco Use Types Packs/Day [...] Description 03/20/2025 9:30 AM EDT Medication Management [facility] MEDICINE [address] [place] [address] Isa Curry PharmD [address] [place] [phone] 03/27/2025 10:00 AM EDT Office Visit [facility] MEDICINE [address] [place] [address] Edwin Kirk MD [address] [place] [address] documented as of this encounter Visit Diagnoses Diagnosis Heartburn documented in this encounter Care Teams Furniture Repairer Relationship Specialty Start Date End Date Edwin Kirk MD [address] [place] [address] PCP - General Internal Medicine 03/31/14 Isa Curry PharmD [address] [place] [address] Pharmacist Internal Medicine 09/05/24 [employer] 06/27/24 01/23/25 documented as of this encounter
--- OUTSIDE RECORDS SUMMARY | 2025-03-06 09:24 | XMS_ITS | Encounter Summary ---
Author Organization [employer] [facility] Address [address] [place] [address] 7 [place] [address] Care Team Providers Care Knifeman Name Role Phone Edwin Kirk MD Primary Care Provide r Isa Curry PharmD Unavailable [phone] Encounter Details Date Type Department Care Team (Late st Contact Info) Description 11/23/2022 [facility] Health Information Management [address] [place] [address] Edwin Kirk MD [address] [place], [place] [phone] Social History Tobacco Use Types Packs/Day Years [...] Description 03/20/2025 9:30 AM EDT Medication Management [facility] [address] [place] [address] Isa Curry, PharmD [address] [place] [address] 03/27/2025 10:00 AM EDT Office Visit [facility] [address] [place], [place] [phone] Edwin Kirk MD [address] [place], [place] [phone] documented as of this encounter Visit Diagnoses Not on filedocumented in this encounter Care Teams Knifeman Relationship Specialty Start Date End Date Edwin Kirk MD [address] [place] [address] [phone] PCP - General Internal Medicine 03/31/14 Isa Curry PharmD [address] [place] [address] [phone] Pharmacist Internal Medicine 09/05/24 [facility] 06/27/24 01/23/25 documented as of this encounter
--- OUTSIDE RECORDS SUMMARY | 2025-03-06 09:24 | XMS_ITS | Encounter Summary ---
Author Organization [employer] [facility] Address [address] [facility] 7 [place] [address] Care Team Providers Care Latin Professor Name Role Phone Edwin Kirk MD Primary Care Provide r Isa Curry PharmD Unavailable [phone] Encounter Details Date Type Department Care Team (Late st Contact Info) Description 10/27/2022 Abstract [facility] [address] [place] [id number] Edwin Kirk MD [address] [place], [place] [phone] Social History Tobacco Use Types Packs/Day Years [...] Description 03/20/2025 9:30 AM EDT Medication Management [facility] [address] [place] [address] Isa Curry, PharmD [address] [place], [place] [phone] 03/27/2025 10:00 AM EDT Office Visit [facility] [address] [place], [place] [phone] Edwin Kirk MD [address] [place], [place] [phone] documented as of this encounter Visit Diagnoses Not on filedocumented in this encounter Care Teams Latin Professor Relationship Specialty Start Date End Date Edwin Kirk MD [address] [place] [address] [phone] PCP - General Internal Medicine 03/31/14 Isa Curry, Vinod [address] [place] [address] [phone] Pharmacist Internal Medicine 09/05/24 [facility] 06/27/24 01/23/25 documented as of this encounter
--- OUTSIDE RECORDS SUMMARY | 2025-03-06 09:24 | XMS_ITS | Encounter Summary ---
Author Organization [employer] Address [address] [facility] [address] [place] [address] Care Team Providers Care Automotive Internet Sales Manager Name Role Phone Edwin Kirk MD Primary Care Provide r Isa Curry PharmD Unavailable [phone] Reason for Visit * Reason Onset Date Comments Hospital Follow-up 06/26/2024 Encounter Details Date Type Department Care Team ([facility] st Contact Info) Description 06/26/2024 Telephone [facility] [address] [place] [address] Edwin Kirk MD [address] [place], [place] [phone] Hospital Follow-up Social History Tobacco Use Types [...] from pt requesting a HDF appt. Hospital: [facility] Date of admission: 06/24/24 Discharge date: 06/26/24 Diagnosed: Foot infection *Send message to [place] Clinical Care Coordinators documented in this encounter Plan of Treatment Upcoming Encounters Date Type Department Care Team (Late st Contact Info) Description 03/20/2025 9:30 AM EDT Medication Management [facility] [address] [place] [phone] Isa Curry, Vinod [address] [place] [address] 03/27/2025 10:00 AM EDT Office Visit [facility] [address] [place] [phone] Edwin Kirk MD [address] [place] [address] documented as of this encounter Goals Goal [...] documented as of this encounter Care Teams Automotive Internet Sales Manager Relationship Specialty Start Date End Date Edwin Kirk MD [address] [place] [address] PCP - General Internal Medicine 03/31/14 Isa Curry, Vinod [address] [place] [address] Pharmacist Internal Medicine 09/05/24 [facility] 06/27/24 01/23/25 documented as of this encounter
--- OUTSIDE RECORDS SUMMARY | 2025-03-06 09:24 | XMS_ITS | Clinical Summary ---
Author Organization [employer] Address [address] [place] [address] Care Team Providers Care Cake Wringer Name Role Phone Edwin Kirk MD Primary Care Provide r Isa Curry PharmD Unavailable [phone] Allergies No known active allergies Medications buPROPion XL (Wellbutrin XL) 300 MG 24 hr tablet Take 1 tablet by mouth in the morning. 11/26/19 23 Active escitalopram (Lexapro) 10 MG tablet Take 1.5 tablets by mouth in the morning. 11/26/19 23 Active eszopiclone (Lunesta) 3 MG tablet Take 1 tablet by mouth if needed at bedtime. 11/26/19 23 Active nitroglycerin (Nitrostat) 0.4 MG SL tablet DISSOLVE 1 TABLET UNDER THE TONGUE EVERY 5 MINUTES NEEDED FOR CHEST PAIN. CALL 911 IF NO RELIEF 09/06/19 23 Active OXcarbazepine (Trileptal) 300 MG tablet Take 1 tablet by mouth 2 times daily. 11/26/19 23 Active Blood Glucose Monitoring Suppl (FreeStyle Lite) w/Device kit 1 Device before breakfast, before lunch, and before evening meal. 1 kit 04/24/20 23 Active Blood Pressure Monitor kit 1 each in the morning. Use to check blood pressure at least once daily after taking medication 1 kit 09/08/19 24 Active celecoxib (CeleBREX) 200 MG capsule Take 200 mg by mouth 2 times daily. 01/31/20 24 Active Pentips 32G X 4 MM misc USE DIRECTED FOUR TIMES DAILY 100 each 11 02/27/20 24 Active atorvastatin (Lipitor) 40 MG tablet TAKE 1 TABLET BY MOUTH AT BEDTIME 90 tablet 3 04/03/20 24 Active Aspirin Low Dose 81 MG EC tablet TAKE 1 TABLET BY MOUTH EVERY MORNING 90 tablet 3 06/26/19 25 Active lisinopril 10 MG tablet TAKE 1 TABLET BY MOUTH EVERY MORNING 90 tablet 3 06/26/19 25 Active Alcohol Swabs (Alcohol Prep) 70 % padsIndications:T ype 2 diabetes mellitus with diabetic neuropathic arthropathy, with long-term current use of insulin ([facility]) TAKE 1 TABLET BY MOUTH TWICE DAILY 100 each 08/30/19 25 Active TRUEplus Lancets 33G miscIndications:T ype 2 diabetes mellitus with diabetic neuropathic arthropathy, with long-term current use of insulin ([facility]) TEST BLOOD SUGAR TWICE DAILY 100 each 08/30/19 25 Active metoprolol succinate XL (Toprol-XL) 25 MG 24 hr tabletIndications :Benign essential hypertension TAKE 1 TABLET BY MOUTH EVERY EVENING DO NOT BREAK, CRUSH, DISSOLVE OR CHEW 30 tablet 3 10/18/19 25 Active FREESTYLE LITE test stripIndications: Type 2 diabetes mellitus with diabetic neuropathic arthropathy, with long-term current use of insulin ([facility]) TEST BLOOD SUGAR TWICE DAILY 100 strip 11 12/10/19 25 Active insulin glargine (Toujeo SoloStar) 300 UNIT/ML injectionIndicati ons:Type 2 diabetes mellitus with diabetic neuropathic arthropathy, with long-term current use of insulin ([facility]) INJECT 40 UNITS SUBCUTANEOUSLY EVERY DAY AT BEDTIME 4.5 mL 1 12/13/19 25 Active insulin aspart (NovoLOG FLEXPEN) 100 UNIT/ML penIndications:Ty pe 2 diabetes mellitus with diabetic neuropathic arthropathy, with long-term current use of insulin ([facility]) IN 0 TO 12 UNITS SUBCUTANEOUSLY THREE TIMES DAILY DIRECTED by sliding scale 60 mL 1 12/13/19 25 Active gabapentin (Neurontin) 300 MG capsuleIndication s:Diabetic polyneuropathy associated with type 2 diabetes mellitus ([facility]) TAKE 1 CAPSULE BY MOUTH TWICE DAILY IN THE MORNING AND AT BEDTIME 60 capsule 01/10/20 25 Active omeprazole (PriLOSEC) [address] capsuleIndication s:Heartburn Take 1 capsule (20 mg) by mouth in the morning. Do not crush or chew. 90 capsule 01/10/20 25 Active D3 Super Strength 50 MCG (1999 UT) capsuleIndication s:Low vitamin D level TAKE 1 CAPSULE BY MOUTH EVERY MORNING 90 capsule 1 01/17/20 25 Active Tirzepatide (Mounjaro) 5 MG/0.5ML solution auto-injectorIndi cations:Type 2 diabetes mellitus with diabetic neuropathic arthropathy, with long-term current use of insulin (CMS/HCC) Inject 5 mg under the skin 1 (one) time per week. 2 mL 1 02/07/20 25 Active amoxicillin-clavu lanate (Augmentin) 875-125 MG tabletIndications :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) Take 1 tablet by mouth 2 times daily for 84 doses. 84 tablet 02/07/20 25 025 Active Semaglutide, 2 MG/DOSE, (Ozempic, 2 MG/DOSE,) 8 MG/3ML solution pen-injectorIndic ations:Type 2 diabetes mellitus with diabetic neuropathic arthropathy, with long-term current use of insulin (CMS/HCC) Inject 0.75 mL (2 mg) under the skin 1 (one) time per week. 3 mL 12/13/19 25 025 Disconti nued(Alt ernate therapy) Active Problems Problem Noted Date Diagnosed Date Ulcer of right foot with necrosis of muscle 06/20 Overview (07/17/2024): Admitted [facility] (06/24/2024 - 06/26/2024) for right foot wound [...] hours for 7 day Patient followed with [facility] general surgeons 07/08/2024 Dr. Lim recommending follow [...] & Plan (07/17/2024 9:37 AM EST): Admitted [facility] (06/24/2024 - 06/26/2024) for right foot wound [...] hours for 7 day Patient followed with [facility] general surgeons 07/08/2024 Dr. Lim recommending follow [...] Tovar last note: 09/28/2023 Assessment & Plan (01/09/2024 [...] EDT): Televisit Underwent extensive cardiac evaluation by [employer] nuclear stress test done on 09/02/2022 with [...] day). Today pt's daughter tells me the [employer] Dr Mkceon cancelled the appointment. EKG today shows: sinus [...] 08/14/2012 Overview (07/17/2024): Pharmacotherapy: Updated 07/17/24 - Maria D fortunear - Was increased from 48 to 50 [...] Dental Exam: >6 months Recent hospitalization at [facility] 06/24/2024 - 06/26/2024. Saw CDTM on 07/09/24 [...] Dental Exam: >6 months Recent hospitalization at [facility] 06/24/2024 - 06/26/2024. Saw CDTM on 07/09/24 [...] less than 150mg/dl - F/U with new [facility] pharmacist for continued titration on 02/11. Monitoring: [...] Encounters Date Type Department Care Team Description 03/05/2025 Refill [facility] [address] [place] [address] Luh Weston MD Benign essential hypertension 02/13/2025 Telephone [facility] [employer] [address] [place] [address] Franklin Edwards MD MRI FOOT 02/06/2025 Telephone [facility] [address] [place] [address] Tram Merritt, RN Results 02/06/2025 Orders Only [facility] [address], [place] [address] Franklin Edwards MD Ulcer of right foot with necrosis of muscle ([facility]/HCC) (Primary Dx) 02/06/2025 Orders Only [facility] [address] [place] [address] Edwin Kirk MD 02/06/2025 Travel 01/16/2025 Refill [facility] [address] [place] [address] Edwin Kirk MD Low vitamin D level 01/09/2025 11:30 AM EDT Office Visit [facility] [place] [address] Edwin Kirk MD Type 2 diabetes mellitus with diabetic neuropathic arthropathy, with long-term current use of insulin (CMS/HCC) (Primary Dx); Diabetic polyneuropathy associated with type 2 diabetes mellitus (CMS/HCC); Benign essential hypertension; Heartburn; Breast cancer screening by mammogram; Preventative health care 01/09/2025 Travel 01/06/2025 Refill [facility] [address] [place] [address] Edwin Kirk MD Diabetic polyneuropathy associated with type 2 diabetes mellitus ([facility]/HCC) 12/12/2024 Orders Only [facility] [address] [place] [address] Edwin Kirk MD Diabetic polyneuropathy associated with type 2 diabetes mellitus ([facility]/HCC) 12/12/2024 Telephone [facility] [place] [address] Edwin Kirk MD 12/12/2024 Travel 12/07/2024 Refill [facility] [address] [place] [address] Edwin Kirk MD Type 2 diabetes mellitus with diabetic neuropathic arthropathy, with long-term current use of insulin (CMS/HCC) from Last 3 Months Immunizations Immunization Administration [...] Medication Management [facility] [address] [place] [phone] Isa Curry, PharmD [address] [place] [address] 03/27/2025 10:00 AM EDT Office Visit [facility] [address] [place] [phone] Edwin Kirk MD [address] [place] [address] Health Maintenance Due Date Last Done Comments [...] 07/18/2024 Hepatitis B Vaccines Completed 12/12/2024, 09/06/19 HIB Vaccines Aged Out No longer eligi [...] 3+ VIEWS RIGHT Routine 11:50 AM EDT CALCITONIN Routine 02/06/2025 11:23 AM EDT Ulcer of right foot with necrosis of muscle ([facility]) HEMOGLOBIN A1C Routine 02/06/2025 11:13 AM EDT [...] AM EDT Narrative 02/06/2025 12:41 PM EDT [address] [address] XRay Report Signed Patient: Dora Fernandez MR#: [id number] 005 : 1970 Acct:[id number] Age/Sex: 54 / F ADM Date: 02/06/25 Loc: [facility] Attending Dr: Edwin Benitez MD Ordering Physician: Edwin Benitez MD Date of Service: 02/06/25 Procedure(s): XR foot RT min 3V Accession Number(s): [id number] cc: Edwin Benitez MD EXAMINATION: XR FOOT, [...] 02/06/25 1238 DD/ 1150 TD/TT: 02/06/25 1156 Director Of Corporate Responsibility: Procedure Note Donotuseinterpreter, Image - 02/06/[address] [address] XRay Report Signed Patient: Dora FernandezMR#: [id number] 005 : 1970Acct:[id number] Age/Sex: 54 / FADM Date: 02/06/25 Loc: [facility] Attending Dr: Edwin Benitez MD Ordering Physician: Edwin Benitez MD Date of Service: 02/06/25 Procedure(s): XR foot RT min 3V Accession Number(s): [id number] cc: Edwin Benitez MD EXAMINATION: XR FOOT, [...] 02/06/25 1238 DD/ 1150 TD/TT: 02/06/25 1156 Director Of Corporate Responsibility: us Edwin Zuleta MD IMG XR PROCEDURES Fin al Result * Calcitonin (02/06/2025 11:23 AM EDT) Calcitonin (Thyrocalcitonin) <2 <=5 pg/mL [facility] Comment:This test was perfor med using the SiemensChemiluminescent method. Values obtained withdifferent assay methods cannot be used interchangeably.Calcitonin levels, regardless of value, should not beinterpreted as absolute evidence of the presence orabsence of the disease.THIS TEST WAS PERFORMED AT:[facility] [place] [address]ETLFOWGALEXANDER CUETO MD,PHD 02/06/2025 11:2 3 AM EDT 02/06/2025 12:56 PM EDT us Generic External Data Provider LAB BLOOD ORDERAB LES Final Result [facility] [address] [place] [phone] [phone] * (ABNORMAL) CBC auto differential (02/06/2025 11:13 AM EDT) White Blood Count 6.6 4.8 - 10.8 X10*3/uL [facility] Red Blood Count 4.26 4.20 - 5.50 X10*6/uL [facility] Hemoglobin 11.6(L) 12.0 - 16.0 g/dl [facility] Hematocrit 35.6(L) 37.0 - 47.0 % [facility] Mean Corpuscular Volume 83.6 80.0 - 98.0 fL [facility] Mean Corpuscular Hemoglobin 27.2 27.0 - 33.0 pg [facility] Mean Corpuscular HGB Conc 32.6 31.0 - 35.0 g/dl [facility] Red Cell Distribution Width 13.1 11.0 - 16.0 % [facility] Platelet Count 265 160 - 400 X10*3/uL [facility] Mean Platelet Volume 11.7 9.4 - 12.3 fL [facility] Neutrophils Percent Auto 55.6 45 - 73 % [facility] Imm Gran Pct Auto 0.6(H) 0.0 - 0.4 % [facility] Lymphocytes Percent Auto 26.4 20 - 40 % [facility] Monocytes Percent Auto 8.6 2 - 11 % [facility] Eosinophils Percent Auto 8.0(H) 0 - 4 % [facility] Basophils Percent Auto 0.8 0 - 2 % [facility] NRBC Pct Auto 0.0 0.0 - 0.2 /100WBC [facility] Neutrophils Absolute Auto 3.7 2.0 - 8.3 x10*3/uL [facility] Imm Gran Abs Auto 0.04(H) 0.00 - 0.03 X10*3/uL [facility] Lymphocytes Absolute Auto 1.7 1.2 - 4.9 X10*3/uL [facility] Monocytes Absolute Auto 0.6 0.1 - 1.2 X10*3/uL [facility] Eosinophils Absolute Auto 0.5(H) 0.0 - 0.4 X10*3/uL [facility] Basophils Absolute Auto 0.1 0.0 - 0.2 X10*3/uL [facility] NRBC Abs Auto 0.000 0.0 - 0.012 X10*3/uL [facility] 02/06/2025 11:1 3 AM EDT 02/06/2025 12:56 PM EDT Generic External Data Provider LAB BLOOD ORDERAB LES Final Result Performing Organization Address [facility] Co de Phone Number [facility] [address] [place] [phone] * (ABNORMAL) Sed Rate by Modified Westergren (02/06/2025 11:13 AM EDT) Pathologist [facility] Erythrocyte Sedimentation Rate 21(H) 0 - 20 MM/HR [facility] Comment:Patients with polycy themia and many hemoglobin abnormalitiesmay have depressed sed rates whereas patients with anemiamay have elevated sed rates. 02/06/2025 11:1 3 AM EDT 02/06/2025 12:56 PM EDT Generic External Data Provider LAB BLOOD ORDERAB LES Final Result Performing Organization Address [facility] Co de Phone Number [facility] [address] [place] [phone] * (ABNORMAL) C-reactive Protein (02/06/2025 11:13 AM EDT) Pathologist [facility] C Reactive Protein 2.66(H) < or = 0.50 mg/dL [facility] 02/06/2025 11:1 3 AM EDT 02/06/2025 12:56 PM EDT us Generic External Data Provider LAB BLOOD ORDERAB LES Final Result Performing Organization Address [facility] Co de Phone Number [facility] [address] [place] [phone] * (ABNORMAL) Hemoglobin A1c (02/06/2025 11:13 AM EDT) Hemoglobin A1c 7.2(H) <6.0 % [facility] Comment:Hemoglobin A1C Refer ence Range Adults: 4.8 - 6.0 % Non diabetic: < 6.0 % Goal: < 7.0 %Additional Action Suggested: > 8.0 %Note: Hemoglobin A1c results are invalid for patients with abnormal amounts of HbF. Blood transfusions may impact the HbA1c concentration in the patient sample. Estimated Average Glucose 160 mg/dL [facility] Comment:eAG = Estimated ave rage glucose which is %A1C expressed asaverage glucose, using the formula of the H7R-[id number] Glucose study (ADAG), Diabetes Care, Vol.31,#8,Jan. 2007 02/06/2025 11:1 3 AM EDT 02/06/2025 12:56 PM EDT us Generic External Data Provider LAB BLOOD ORDERAB LES Final Result Performing Organization Address [facility] Co de Phone Number [facility] [address] [place] [phone] * Albumin, Random Urine W/Creatinine (01/27/2025 9:31 AM EDT) Creatinine, Urine 168.19 mg/dL [facility] Microalbumin Urine 17.0 mg/L [facility] Microalbum Creatinine Ratio Ur 10.1 <30 ug/mg cr [facility] Comment:Albumin/Creatinine R atio Reference Ranges: Normal: < 30 ug/mg creatinine Microalbuminuria: 30 - 300 ug/mg creatinineClinical Albuminuria: > 300 ug/mg creatinine Urine (Urine, Random) 01/27/2025 9:31 AM EDT 01/27/2025 11:14 AM EDT Edwin Zuleta MD LAB URINE ORDERABLES Final Result Performing Organization Address [facility] Co de Phone Number [facility] [address] [place] [phone] * Lipid Panel, Standard (01/27/2025 9:31 AM EDT) Triglycerides 64 <150 mg/dL [facility] Comment:Desirable Triglyceri de: less than 150 mg/dLBorderline High Triglyceride 150-199 mg/dLHigh Triglyceride: 200-499 mg/dLVery High Triglyceride: greater than or equal to 5OO mg/dL Cholesterol 134 <200 mg/dL [facility] Comment:Desirable Cholestero l: less than 200 mg/dLBorderline High Cholesterol: 200-239 mg/dLHigh Cholesterol: greater than 239 mg/dL LDL Cholesterol Calculated 61 <100 mg/dL [facility] Comment:Desirable LDL: less than 100 mg/dLNear Optimal/Above Optimal LDL: 110- 129 mg/dLBorderline High LDL: 130-159 mg/dLHigh LDL: 160-189 mg/dLVery High LDL: greater than or equal to 190 mg/dL HDL Cholesterol 61 >40 mg/dL [facility] Comment:Desirable HDL: great er than 40 mg/dL Note: This HDL assay may give artificially low results in patients with liver disease. Blood Venous blood specimen / Unknown 01/27/2025 9:31 AM EDT 01/27/2025 11:22 AM EDT us Edwin Zuleta MD LAB BLOOD ORDERABLES Final Result Performing Organization Address [facility]/ZIP Co de Phone Number [facility] [address] [place] [phone] * (ABNORMAL) Comprehensive Metabolic Panel (01/27/2025 9:31 AM EDT) Sodium 142 135 - 145 mmol/L [facility] Potassium 4.5 3.3 - 5.1 mmol/L [facility] Chloride 102 96 - 108 mmol/L [facility] Carbon Dioxide 31(H) 22 - 29 mmol/L [facility] Anion Gap 14 12 - 20 [facility] Urea Nitrogen (BUN) 28(H) 9 - 16 mg/dL [facility] Creatinine, Serum 1.35 0.5 - 1.4 mg/dL [facility] Estimated Glomerular Filt Rate 41 [facility] Comment:Chronic Kidney Disea se: Estimated GFR < 60 mL/min/1.95s8Thedez Kidney Disease: Estimated GFR < 15 mL/min/1.73m2 Glucose 108 60 - 115 mg/dL [facility] Calcium 9.3 8.4 - 10.2 mg/dL [facility] Bilirubin, Total 0.3 0.0 - 1.0 mg/dL [facility] Aspartate Amino Transferase 27 5 - 31 U/L [facility] Alanine Aminotransferase 17 0 - 31 U/L [facility] Total Protein 8.1(H) 6.5 - 8.0 g/dL [facility] Albumin Level 4.3 3.5 - 5.0 g/dL [facility] Alkaline Phosphatase 103 39 - 117 U/L [facility] Blood Venous blood specimen / Unknown 01/27/2025 9:31 AM EDT 01/27/2025 11:22 AM EDT us Edwin Zuleta MD LAB BLOOD ORDERABLES Final Result [facility] [address] [place] [phone] * (ABNORMAL) POCT HGB A1C (01/09/2025 12:05 PM EDT) Hemoglobin A1C 7.2(A) 4.0 - 5.7 % QC Media Lot # [id number] Lot# Expiration Date 3406,[id number] Blood 01/09/2025 12:0 5 PM EDT Edwin Zuleta MD POINT OF CARE TEST EN TER/EDIT ORDERABLES Final Result * POCT Glucose (01/09/2025 12:03 PM EDT) Glucose Blood, POC 136 60 - 200 mg/dL [employer] Lot # [id number] Lot# Expiration Date 2135,[id number] Blood Capillary blood specimen / Unknown 01/09/2025 12:03 PM EDT Edwin Zuleta MD POINT OF CARE TEST EN TER/EDIT ORDERABLES Final Result * BI Mammogram Screening Tomosynthesis Bilateral (09/04/2023 11:35 AM EDT) Anatomical Region Laterality Modality Breast Bilateral Mammography 09/04/2023 11:3 5 AM EDT Narrative 09/26/2023 10:57 PM EDT [facility] [address] [place] [address] Mammography Report Signed Patient: Dora Fernandez MR#: [id number] 005 : 1970 Acct:[id number] Age/Sex: 53 / F ADM Date: 09/04/23 Loc: MAMMO Attending Dr: Edwin Benitez MD Ordering Physician: Edwin Benitez MD Resu lts: 1Negative Date of Service: 09/04/23 Follow Up: 1 Year From Orig inal Mammogram Procedure(s): MM tomosynthesis screening BI Accession Number(s): [id number] cc: Edwin Benitez MD EXAMINATION: MM SCREENING [...] by Cecelia Sol MD in OV> 09/26/23 3796 DD/ 1135 TD/TT: Director Of Corporate Responsibility: Procedure Note Donotuseinterpreter, Image - 09/26/20[facility] [address] [place] [address] Mammography Report Signed Patient: Dora FernandezMR#: [id number] 005 : 1970Acct:[id number] Age/Sex: 53 / FADM Date: 09/04/23 Loc: [facility] Attending Dr: Edwin Benitez MD Ordering Physician: Edwin Benitez MDResu lts: 1Negative Date of Service: 09/04/23Follow Up: 1 Year From Orig inal Mammogram Procedure(s): MM tomosynthesis screening BI Accession Number(s): [id number] cc: Edwin Benitez MD EXAMINATION: MM SCREENING [...] by Cecelia Sol MD in OV> 09/26/23 1490 DD/ 1132 TD/TT: Director Of Corporate Responsibility: Edwin Zuleta MD IMG BI PROCEDURES Fin al Result * HEPATITIS C AB W/REFL TO HCV RNA, QN, PCR (02/25/2022 9:25 AM EDT) HEPATITIS C ANTIBODY NON-REACT REMI NON-REACT REMI [facility] INDEX 0.08 <1.00 [facility] Comment: HCV antibody was non-reactive. There is no laboratory evidence of HCV infection. In most cases, no further action is required. However, if recent HCV exposure is suspected, a test for HCV RNA (test code 72083) is suggested. For additional information please refer to http://education.[employer]/faq/CCI78y3 (This link is being provided for informational/ educational purposes only.) 02/25/2022 9:25 AM EDT Edwin Zuleta MD HISTORICAL/NON ORDERA BLE LABS Final Result [facility] [address] * Hm Colonoscopy (12/25/2018 7:41 AM EDT) Historical Provider HEALTH MAINTENANCE Final Result from Last 3 Months or Most Recently Relevant to Health Maintenance Insurance [facility] < [address] [place]AN [id number] Care Teams Cake Wringer Relationship Specialty Start Date End Date Edwin Kirk MD [address] [place] [address] PCP - General Internal Medicine 03/31/14 Isa Curry PharmD [address] [place] [address] Pharmacist Internal Medicine 09/05/24
--- OUTSIDE RECORDS SUMMARY | 2025-03-06 09:24 | XMS_ITS | Encounter Summary ---
Author Organization [employer] Address [address] [facility] [address] [place] [address] Care Team Providers Care Emergency Dept Tech Name Role Phone Edwin Kirk MD Primary Care Provide r Isa Curry PharmD Unavailable [phone] Encounter Details Date Type Department Care Team ([facility] Contact Info) Description 12/12/2024 Telephone [facility] [address] [place] [address] Edwin Kirk MD [address] [place], [place] [phone] Social History Tobacco Use Types Packs/Day Years [...] Description 03/20/2025 9:30 AM EDT Medication Management [facility] [address] [place] [phone] Isa Curry, PharmD [address] [place] [phone] 03/27/2025 10:00 AM EDT Office Visit [facility] [address] [place] [phone] Edwin Kirk MD [address] [place] [address] documented as of this encounter Goals Goal [...] documented as of this encounter Care Teams Emergency Dept Tech Relationship Specialty Start Date End Date Edwin Kirk MD [address] [place] [address] PCP - General Internal Medicine 03/31/14 Isa Curry PharmD [address] [place] [address] Pharmacist Internal Medicine 09/05/24 [employer] 06/27/24 01/23/25 documented as of this encounter
--- OUTSIDE RECORDS SUMMARY | 2025-03-06 09:25 | XMS_ITS | Encounter Summary ---
Author Organization [id number] Address [address] [facility] [address] [place] [address] Care Team Providers Care C S S Representative Name Role Phone Edwin Kirk MD Primary Care Provide r Isa Curry PharmD Unavailable [phone] Reason for Visit * Reason Comments Med Refill Encounter Details Date Type Department Care Team ([facility] st Contact Info) Description 10/25/2024 Refill [facility] [address] [place] [address] Sherrie Carey, ANP [address] [place] [address] Diabetic polyneuropathy associated with type 2 diabetes [...] Description 03/20/2025 9:30 AM EDT Medication Management [facility] [address] [place] [phone] Isa Curry PharmD [address] [place] [phone] 03/27/2025 10:00 AM EDT Office Visit [facility] [address] [place] [phone] Edwin Kirk MD [address] [place] [phone] documented as of this encounter Goals Goal [...] documented as of this encounter Care Teams C S S Representative Relationship Specialty Start Date End Date Edwin Kirk MD [address] [place] [address] PCP - General Internal Medicine 03/31/14 Isa Curry PharmD [address] [place] [address] Pharmacist Internal Medicine 09/05/24 [employer] 06/27/24 01/23/25 documented as of this encounter
== END 2025-03-06 08:24 | disposition home or self-care (01) ==
LOC: HO.MRI 08:23
PROVIDERS: PCP Internal Medicine; Visit Provider Surgery Surgical Oncology
DX: E11.621 Type 2 diabetes mellitus with foot ulcer (principal); L97.512 Non-pressure chronic ulcer of other part of right foot with fat layer exposed
CPT/HCPCS: 73720; A9585

== ENCOUNTER → 2025-03-06 08:30 | Outpatient (BNV) | payer OTHER, SELFPAY | PROVIDERS: PCP Internal Medicine; Visit Provider Radiology Diagnostic Radiology | DX: M86.171 Other acute osteomyelitis, right ankle and foot (principal) | CPT/HCPCS: 73720 ==

== ENCOUNTER 2025-03-13 09:47 | Outpatient (AMB) | payer OTHER, SELFPAY ==
--- OUTSIDE RECORDS SUMMARY | 2024-11-05 10:30 | XMS_ITS ---
Author Organization [facility] Address [address] [place] [phone] Care Team Providers Care Front Desk Person Name Role Phone Garry Zuleta MD, Edwin Primary Care Provide r Cristofer Owusu Unavailable [phone] Encounters Encounter Location Date Provider Diagnosis [address] [address] 11/05/2024 Cristofer Hilario Plan Of Treatment Next Appt Details Provider Name:Cristofer Hilario , 05/13/2025 01:45:00 PM, [address] [place] [address], [phone], Progress Notes * Dora FERNANDEZDOB:[birth year] (54 yo F)Acc No.[id number]:11/05/2024 Progress Note Patient: Tyler Dora MOSES Provider: Emily Hilario DPM :1970 A ge:54 Y S ex:Female Date:11/05/2024 Address:[address] [place] [address] [id number] Pcp:Edwin Zuleta MD Subjective: * Chief Complaints: [...] 0 11/05/2024 Generated for Joseph Rockwell on: 0 03/13/2025 11:41 AM EDT
--- NOTE | 2025-03-13 09:48 | MHC.OFFVIS ---
Vital Signs 03/13/25 09:52 Height 5 ft 9 in Weight 346 lb 0.707 oz BMI 51.1 Intake Visit Reasons: foot wound Intake Note: This patient was referred by [facility] wound clinic for wound of the foot. Pt c/o; reports no complaints. Business Intelligence Director Required: Yes Business Intelligence Director Language: Undercover Operator Services: Business Intelligence Director Offered & Declined Accompanied by: Daughter Allergies No Known Allergies Allergy (Unknown, Verified 03/13/25 09:53) HPI HPI foot wound: Details: 54-year-old emale with known diabetes, morbidly obese, here for follow-up for an open would and drainage on the right foot laterally. She has had this for the past 7 months. She has been seeing a logistics and planning manager and she was told that she probably should have a bunion oval. She had a recent x-ray which showed some erosive changes in the 5th toe. She is a known diabetic. She used to have elevated hemoglobin A1c up to 13. Her A1c now was around 7.5. She had been started on Mounjaro. She has a history of amputation of the 3rd toe and partial amputation of the 2nd toe on the same foot. She had a chronic ulcer on the 4th toe as well in the past but this had healed. She had been seen recently by the Wound Clinic and a follow up MRI was done last week. This showed suggestion of osteomyelitis and septic arthritis involving the 5th metatarsophalangeal joint with osteomyelitis throughout the proximal phalanx of the 5th digit. There is also suggestion of osteomyelitis involving the head and neck of the distal 3rd diaphysis of the 5th metatarsal. She was therefore referred to me for toe amputation. The patient says she does not want to be on IV antibiotics anymore. PENDING SALE TO [facility] Medical History (Updated 03/13/25 @ 10:06 by Dylan Lim MD) Osteomyelitis of toe of right foot Foot ulcer, right Wound of foot Toe ulcer due to DM Arm swelling Restrictive lung disease Dyspnea on exertion Morbid obesity Gallstones Obesity due to excess calories Chronic kidney disease, stage 3 Charcot foot due to diabetes mellitus Depression Vitamin D deficiency Hyperlipidemia LDL goal <100 Hypertension Diabetic polyneuropathy Type 2 diabetes mellitus with chronic kidney disease Surgical History Hx of colonoscopy History of partial ray amputation of third toe of right foot Hx of wisdom tooth extraction History of partial amputation of toe (2018) History of total hysterectomy with bilateral salpingo-oophorectomy (BSO) Family History Father Type 2 diabetes mellitus Mother Type 2 diabetes mellitus Diverticulitis Hypertension Social History Household Members: Family Household Members Other:: , mother Housing: House Are you a primary primary care md to a significant other at home: No Do you presently have visiting nurse or other home services: No Alcohol intake: former Patient Tobacco Use Status: Never used Tobacco service: No Review of Systems Const Denies chills and Denies fever(s) Card Denies chest pain, Denies dyspnea and Reports dyspnea on exertion Resp Denies cough, Denies dyspnea and Reports dyspnea on exertion GI Denies hematochezia and Denies change in bowel habits Denies hematuria Musc Denies back pain and Denies limited range of motion Neuro Denies focal weakness and Denies convulsions Psych Denies depression and Denies mood swings Physical Exam Vital Signs: BMI result Body Mass Index 51.1 Const Other: Morbidly obese General: comfortable and no acute distress Orientation/consciousness: patient oriented x3 Neck Neck: Yes no lymphadenopathy Resp Auscultation: clear to auscultation bilaterally Cardio Rhythm: regular rhythm GI Palpation (GI): Soft to palpation, nontender and no guarding Neuro General: patient oriented x3 Extrem Other: Nonhealing ulcer on the lateral aspect of the forefoot on the right side Assessment & Plan Assessment & Plan (1) Osteomyelitis of toe of right foot: Code(s): M86.9 - Osteomyelitis, unspecified Category: Medical Plan: She has this nonhealing ulcer of the lateral aspect of the right forefoot with an MRI from last week showing suggestion of osteomyelitis of the 5th toe as well as the distal 3rd of the metatarsal. She wants to proceed with amputation. This will be a ray amputation of the 5th toe starting from the distal 3rd metatarsal on the right. I explained the technique of this procedure. I reviewed the risks including but not limited to bleeding, infections and poor healing, as well as the benefits and alternatives. She understands what to expect postoperatively. She has given consent She is on Mounjaro so this will be held for a week prior to her surgery. Her daughter was with her during the visit. Coding Level of Care Code Est Pt Level 3 (21599) Diagnoses Osteomyelitis of toe of right foot M86.9
[2025-03-13 09:52] VITALS: BMI 51.1
--- OUTSIDE RECORDS SUMMARY | 2025-03-13 11:41 | XMS_ITS | Encounter Summary ---
Author Organization [employer] Address [address] [facility] [address] [place] [address] Care Team Providers Care [employer] Founder Name Role Phone Edwin Kirk MD Primary Care Provide r Isa Curry PharmD Unavailable [phone] Reason for Visit * Reason Comments Med Refill Encounter Details Date Type Department Care Team ([facility] st Contact Info) Description 05/17/2024 Refill [facility] [address] [place] [address] Edwin Kirk MD [address] [place] [address] Type 2 diabetes mellitus with diabetic neuropathic arthropathy, with long-term current use of insulin ([facility]) Social History Tobacco Use Types [...] Description 03/20/2025 9:30 AM EDT Medication Management [facility] [address] [place] [phone] Isa Curry, PharmD [address] [place] [phone] 03/27/2025 10:00 AM EDT Office Visit [facility] [address] [place] [phone] Edwin Kirk MD [address] [place] [address] documented as of this encounter Goals Goal [...] arthropathy, with long-term current use of insulin ([facility]) documented in this encounter Additional Health Concerns Assessment Noted Time PHQ-9 Depression Total Score: 12 024 11:58 AM EDT documented as of this encounter Care Teams [employer] Founder Relationship Specialty Start Date End Date Edwin Kirk MD [address] [place], [place] [id number] PCP - General Internal Medicine 03/31/14 Isa Curry PharmD [address] [place] [address] Pharmacist Internal Medicine 09/05/24 [employer] 06/27/24 01/23/25 documented as of this encounter
--- OUTSIDE RECORDS SUMMARY | 2025-03-13 11:41 | XMS_ITS | Clinical Summary ---
Author Organization [employer] Address [address] [facility] [address] [place] [address] Care Team Providers Care Circus Trainer Name Role Phone Edwin Kirk MD Primary Care Provide r Isa Curry PharmD Unavailable [phone] Allergies No known active allergies Medications buPROPion [...] arthropathy, with long-term current use of insulin ([facility]) TAKE 1 TABLET BY MOUTH TWICE DAILY 100 each 025 Active TRUEplus Lancets 33G miscIndications:T ype 2 diabetes mellitus with diabetic neuropathic arthropathy, with long-term current use of insulin ([facility]) TEST BLOOD SUGAR TWICE DAILY 100 each 025 Active FREESTYLE LITE test stripIndications: Type 2 diabetes mellitus with diabetic neuropathic arthropathy, with long-term current use of insulin ([facility]) TEST BLOOD SUGAR TWICE DAILY 100 strip 11 025 Active insulin aspart (NovoLOG FLEXPEN) 100 UNIT/ML penIndications:Ty pe 2 diabetes mellitus with diabetic neuropathic arthropathy, with long-term current use of insulin ([facility]) IN 0 TO 12 UNITS SUBCUTANEOUSLY THREE TIMES DAILY DIRECTED by sliding scale 60 mL 1 025 Active gabapentin (Neurontin) 300 MG capsuleIndication s:Diabetic polyneuropathy associated with type 2 diabetes mellitus ([facility]) TAKE 1 CAPSULE BY MOUTH TWICE DAILY IN THE MORNING AND AT BEDTIME 60 capsule 025 Active omeprazole (PriLOSEC) [address] capsuleIndication s:Heartburn Take 1 capsule (20 mg) by mouth in the morning. Do not crush or chew. 90 capsule 025 Active D3 Super Strength 50 MCG (2000 UT) capsuleIndication s:Low vitamin D level TAKE 1 CAPSULE BY MOUTH EVERY MORNING 90 capsule 1 025 Active Tirzepatide (Mounjaro) 5 MG/0.5ML solution auto-injectorIndi cations:Type 2 diabetes mellitus with diabetic neuropathic arthropathy, with long-term current use of insulin ([facility]) Inject 5 mg under the skin 1 (one) time per week. 2 mL 1 025 Active amoxicillin-clavu lanate (Augmentin) 875-125 MG tabletIndications :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) Take 1 tablet by mouth 2 times daily for 84 doses. 84 tablet 025 2024 Active metoprolol succinate XL (Toprol-XL) 25 MG 24 hr tabletIndications :Benign essential hypertension TAKE 1 TABLET BY MOUTH EVERY EVENING DO NOT BREAK, CRUSH, DISSOLVE OR CHEW 30 tablet 3 025 Active insulin glargine (Toujeo SoloStar) 300 UNIT/ML injectionIndicati ons:Type 2 diabetes mellitus with diabetic neuropathic arthropathy, with long-term current use of insulin (CMS/HCC) INJECT 40 UNITS SUBCUTANEOUSLY AT BEDTIME 4.5 mL 5 025 Active metoprolol succinate XL (Toprol-XL) 25 MG 24 hr tabletIndications :Benign essential hypertension TAKE 1 TABLET BY MOUTH EVERY EVENING DO NOT BREAK, CRUSH, DISSOLVE OR CHEW 30 tablet 3 025 2024 Discontinued insulin glargine (Toujeo SoloStar) 300 UNIT/ML injectionIndicati ons:Type 2 diabetes mellitus with diabetic neuropathic arthropathy, with long-term current use of insulin ([facility]) INJECT 40 UNITS SUBCUTANEOUSLY EVERY DAY AT BEDTIME 4.5 mL 1 025 2024 Discontinued Active Problems Problem Noted Date Diagnosed Date Ulcer of right foot with necrosis of muscle 06/20 Overview (07/17/2024): Admitted [facility] (06/24/2024 - 06/26/2024) for right foot [...] hours for 7 day Patient followed with [facility] general surgeons 07/08/2024 Dr. [...] & Plan (07/17/2024 9:37 AM EST): Admitted [facility] (06/24/2024 - 06/26/2024) for right foot [...] hours for 7 day Patient followed with [facility] general surgeons 07/08/2024 Dr. [...] Assessment & Plan (10/25/2022 1:03 PM EDT): Fatuma Underwent extensive cardiac evaluation by [facility] nuclear stress test done on 09/02/2022 with [...] day). Today pt's daughter tells me the [facility] Dr Mckeon cancelled the appointment. EKG today [...] Dental Exam: >6 months Recent hospitalization at [facility] 06/24/2024 - 06/26/2024. Saw CDTM on [...] Dental Exam: >6 months Recent hospitalization at [facility] 06/24/2024 - 06/26/2024. Saw CDTM on [...] than 150mg/dl - F/U with new [facility] pharmacist for continued titration on 02/11. [...] Encounters Date Type Department Care Team Description 03/07/2025 Refill [facility] [address] [place] [address] Isa Curry, PharmD Type 2 diabetes mellitus with diabetic neuropathic arthropathy, with long-term current use of insulin ([facility]) 03/06/2025 Orders Only [facility] External Provider, [facility] 03/05/2025 Refill [facility] [address] [place] [address] Luh Weston MD Benign essential hypertension 02/13/2025 Telephone [facility] [address] [place] [address] Franklin Edwards MD MRI FOOT 02/06/2025 Telephone [facility] [address] [place] [address] Tram Merritt, HARPAL Results 02/06/2025 Orders Only [facility] [address] [place], [place] [phone] Franklin Edwards MD Ulcer of right foot with necrosis of muscle ([facility]/HCC) (Primary Dx) 02/06/2025 Orders Only [facility] [address] [place] [address] Edwin Kirk MD 02/06/2025 Travel 01/16/2025 Refill [facility] [address] [place] [address] Edwin Kirk MD Low vitamin D level 01/09/2025 11:30 AM EDT Office Visit [facility] [address] [place] [address] Edwin Kirk MD Type 2 diabetes mellitus with diabetic neuropathic arthropathy, with long-term current use of insulin ([facility]) (Primary Dx); Diabetic polyneuropathy associated with type 2 diabetes mellitus ([facility]/HCC); Benign essential hypertension; Heartburn; Breast cancer screening by mammogram; Preventative health care 01/09/2025 Travel 01/06/2025 Refill [facility] [address] [place] [address] Edwin Kirk MD Diabetic polyneuropathy associated with type 2 diabetes mellitus ([facility]/HCC) 12/12/2024 Orders Only [facility] [address] [place] [address] Edwin Kirk MD Diabetic polyneuropathy associated with type 2 diabetes mellitus ([facility]/HCC) 12/12/2024 Telephone [facility] [address] [place], [place] [phone] Edwin Kirk MD 12/12/2024 Travel from Last 3 Months Immunizations Immunization Administration [...] is your housing situation today? I have shahal andrade 10/16/[address] you [...] Description 03/20/2025 9:30 AM EDT Medication Management [facility] [address] [place], [place] [phone] Isa Curry, GurmeetD [address] [place] [address] 03/27/2025 10:00 AM EDT Office Visit [facility] [address] [place] [address] Edwin Kirk MD [address] [place] [address] Health Maintenance Due Date Last Done Comments [...] 5:47 PM EDT) No Maximo Brito, Vinod Procedures Procedure Name Priority Date/Time Associated Diagnosis Comments MR FOOT W AND WO CONTRAST RIGHT Routine 03/06/2025 8:30 AM EDT XR FOOT 3+ VIEWS RIGHT Routine 11:50 AM EDT CALCITONIN Routine 02/06/2025 11:23 AM EDT 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) HEMOGLOBIN A1C Routine 02/06/2025 11:13 AM EDT [...] Recently Relevant to Health Maintenance Results * MR Foot w/ and w/o Contrast Right (03/06/2025 8:30 AM EDT) Anatomical Region Laterality Modality Lower Extremities, Foot Right Magnetic Resonance 03/06/2025 8:30 AM EDT Narrative 03/06/2025 3:29 PM EDT [address] [address] Magnetic Resonance Report Signed Patient: Dora Fernandez MR#: [id number] 005 : 1970 Acct:[id number] Age/Sex: 54 / F ADM Date: 03/06/25 Loc: HO.MRI Attending Dr: Marlene Tiwari MD Ordering Physician: Marlene Tiwari MD Date of Service: 03/06/25 Procedure(s): MR foot RT wo/w con Accession Number(s): [id number] cc: Franklin Edwards MD; Marlene Tiwari MD; Edwin Benitez MD Reason for Exam: NON-PRESSURE CHRONC ULCER W/ FAT LAYER EXPOSED R/O OSTEO EXAM: MRI of the right foot without and with IV contrast TECHNIQUE: Multiplanar multisequence MR imaging was performed through the right foot. INDICATION: Nonpressure chronic ulcer with fat layer exposed rule out osteomyelitis PRIOR: X-ray from February 06, 2025 and MRI from June 25, 2024 IV contrast: 10 mL Gadavist FINDINGS: Lisfranc ligament: The Lisfranc ligament complex is intact and unremarkable. Soft tissues/Archuleta's Neuroma: Focal skin ulceration is noted lateral to the fifth MTP joint and metatarsal head. There is edema and hyperenhancement of the soft tissues extending dorsally to the second metatarsal and plantar to the second web space. There is severe fatty replacement of musculature in the forefoot. There is mild fatty streaking in the musculature of the midfoot. There is no sign of a Archuleta's neuroma. Along the lateral plantar aspect of the distal second digit, there is a circumscribed lesion that is low signal on T1 imaging and high signal on fluid sensitive sequences without clear enhancement. It measures 8 mm long axis, previously 5 mm. The appearance favors a cyst. Metatarsophalangeal (MTP) joint and sesamoids of the great toe: There is a joint effusion. Plantar plate complex and joint capsule structures appear intact. There is deep partial-thickness articular cartilage defect in the plantar central first metatarsal head. Lesser MTP joints Plantar plates: Second and fourth MTP joints demonstrate borderline joint effusion. There is a fifth MTP joint effusion. Central proper cartilage of the fifth plantar plate complex is attenuated near the base of the fifth proximal phalanx Bones/Marrow: There is decreased signal on the T1 sequences in the marrow of the first proximal phalanx, sparing the head, and involving the head and neck and distal third diaphysis of the fifth metatarsal. On fluid sensitive sequences, there is increased signal throughout the fifth proximal phalanx and extending to the proximal diaphysis of the fifth proximal phalanx. There is a 5 mm degenerative cyst in the medial plantar fifth metatarsal head that is unchanged. After contrast, enhancement is concordant to the T2 signal changes. MR/MR foot RT wo/w con IMPRESSION: Suspected osteomyelitis and septic arthritis involving the fifth MTP joint. There is osteomyelitis throughout the proximal phalanx of the fifth digit sparing the head. There is also osteomyelitis involving the head and neck and distal third diaphysis of the fifth metatarsal. Skin ulceration and superficial cellulitis in the lateral forefoot. No evidence of abscess or myositis. Additionally, there is a partial-thickness defect in the fibrocartilage plantar plate complex of the fifth MTP joint that could be a destructive changes secondary to the septic arthritis. 8 mm cystic lesion lateral to the distal end of the second digit has increased in size from 5 mm. This likely represents a ganglion or other cyst. Chronic fatty replacement of the musculature in the forefoot. Electronically signed by: Riley Dunaway MD 03/06/2025 03:27 PM EDT Dictated By: Riley Dunaway MD Signed By: <Electronically signed by Riley Dunaway MD in OV> 03/06/25 1527 DD/ 0830 TD/TT: 03/06/25 0911 Healthcare Manager: Procedure Note Donotuseinterpreter, Image - 03/06/[address] [address] Magnetic Resonance Report Signed Patient: Dora FernandezMR#: [id number] 005 : 1970Acct:[id number] Age/Sex: 54 / FADM Date: 03/06/25 Loc: HO.MRI Attending Dr: Marlene Tiwari MD Ordering Physician: Marlene Tiwari MD Date of Service: 03/06/25 Procedure(s): MR foot RT wo/w con Accession Number(s): [id number] cc: Franklin Edwards MD; Marlene Tiwari MD; Edwin Benitez MD Reason for Exam: NON-PRESSURE CHRONC ULCER W/ FAT LAYER EXPOSED R/OOSTEO EXAM: MRI of the right foot without and with IV contrast TECHNIQUE: Multiplanar multisequence MR imaging was performed through the right foot. INDICATION: Nonpressure chronic ulcer with fat layer exposed rule out osteomyelitis PRIOR: X-ray from February 06, 2025 and MRI from June 25, 2024 IV contrast: 10 mL Gadavist FINDINGS: Lisfranc ligament: The Lisfranc ligament complex is intact and unremarkable. Soft tissues/Archuleta's Neuroma: Focal skin ulceration is noted lateral to the fifth MTP joint and metatarsal head. There is edema and hyperenhancement of the soft tissues extending dorsally to the second metatarsal and plantar to the second web space. There is severe fatty replacement of musculature in the forefoot. There is mild fatty streaking in the musculature of the midfoot. There is no sign of a Archuleta's neuroma. Along the lateral plantar aspect of the distal second digit, there is a circumscribed lesion that is low signal on T1 imaging and high signal on fluid sensitive sequences without clear enhancement. It measures 8 mm long axis, previously 5 mm. The appearance favors a cyst. Metatarsophalangeal (MTP) joint and sesamoids of the great toe: There is a joint effusion. Plantar plate complex and joint capsule structures appear intact. There is deep partial-thickness articular cartilage defect in the plantar central first metatarsal head. Lesser MTP joints Plantar plates: Second and fourth MTP joints demonstrate borderline joint effusion. There is a fifth MTP joint effusion. Central proper cartilage of the fifth plantar plate complex is attenuated near the base of the fifth proximal phalanx Bones/Marrow: There is decreased signal on the T1 sequences in the marrow of the first proximal phalanx, sparing the head, and involving the head and neck and distal third diaphysis of the fifth metatarsal. On fluid sensitive sequences, there is increased signal throughout the fifth proximal phalanx and extending to the proximal diaphysis of the fifth proximal phalanx. There is a 5 mm degenerative cyst in the medial plantar fifth metatarsal head that is unchanged. After contrast, enhancement is concordant to the T2 signal changes. MR/MR foot RT wo/w con IMPRESSION: Suspected osteomyelitis and septic arthritis involving the fifth MTP joint. There is osteomyelitis throughout the proximal phalanx of the fifth digit sparing the head. There is also osteomyelitis involving the head and neck and distal third diaphysis of the fifth metatarsal. Skin ulceration and superficial cellulitis in the lateral forefoot. No evidence of abscess or myositis. Additionally, there is a partial-thickness defect in the fibrocartilage plantar plate complex of the fifth MTP joint that could be a destructive changes secondary to the septic arthritis. 8 mm cystic lesion lateral to the distal end of the second digit has increased in size from 5 mm. This likely represents a ganglion or other cyst. Chronic fatty replacement of the musculature in the forefoot. Electronically signed by: Riley Dunaway MD 03/06/2025 03:27 PM EDT Dictated By: Riley Dunaway MD Signed By: <Electronically signed by Riley Dunaway MD in OV> 03/06/25 1527 DD/ 0830 TD/TT: 03/06/25 0911 Healthcare Manager: [facility] External Provider IMG MRI PROCEDURES Final Result * XR Foot 3+ Views Right (02/06/2025 11:50 AM EDT) Anatomical Region Laterality Modality Lower Extremities, Foot Right Radiogra phic Imaging 02/06/2025 11:5 0 AM EDT Narrative 02/06/2025 12:41 PM EDT [address] [address] XRay Report Signed Patient: Dora Fernandez MR#: [id number] 005 : 1970 Acct:[id number] Age/Sex: 54 / F ADM Date: 02/06/25 Loc: HO.[facility] Attending Dr: Edwin Benitez MD Ordering Physician: Edwin Benitez MD Date of Service: 02/06/25 Procedure(s): XR foot RT min 3V Accession Number(s): [id number] cc: Edwin Benitez MD EXAMINATION: XR FOOT, [...] 02/06/25 1238 DD/ 1150 TD/TT: 02/06/25 1156 Healthcare Manager: Procedure Note Donotuseinterpreter, Image - 02/06/2025 [place] [address] XRay Report Signed Patient: Dora FernandezMR#: [id number] 005 : 1970Acct:[id number] Age/Sex: 54 / FADM Date: 02/06/25 Loc: HO.[facility] Attending Dr: Edwin Benitez MD Ordering Physician: Edwin Benitez MD Date of Service: 02/06/25 Procedure(s): XR foot RT min 3V Accession Number(s): [id number] cc: Edwin Benitez MD EXAMINATION: XR FOOT, [...] 02/06/25 1238 DD/ 1150 TD/TT: 02/06/25 1156 Healthcare Manager: us Edwin Zuleta MD IMG XR PROCEDURES Fin al Result * Calcitonin (02/06/2025 11:23 AM EDT) Calcitonin (Thyrocalcitonin) <2 <=5 pg/mL [facility] Comment:This test was perfor med using the SiemensChemiluminescent method. Values obtained withdifferent assay methods cannot be used interchangeably.Calcitonin levels, regardless of value, should not beinterpreted as absolute evidence of the presence orabsence of the disease.THIS TEST WAS PERFORMED AT:[employer] [id number] [place] [id number] CUETO MD,PHD 02/06/2025 11:2 3 AM EDT 02/06/2025 12:56 PM EDT us Generic External Data Provider LAB BLOOD ORDERAB LES Final Result [facility] [address] [place] [phone] * (ABNORMAL) CBC auto differential (02/06/2025 11:13 AM EDT) White Blood Count 6.6 4.8 - 10.8 X10*3/uL [facility] Red Blood Count 4.26 4.20 - 5.50 X10*6/uL [facility] Hemoglobin 11.6(L) 12.0 - 16.0 g/dl [facility] Hematocrit 35.6(L) 37.0 - 47.0 % [facility] Mean Corpuscular Volume 83.6 80.0 - 98.0 fL [facility] Mean Corpuscular Hemoglobin 27.2 27.0 - 33.0 pg [facility] Mean Corpuscular HGB Conc 32.6 31.0 - 35.0 g/dl [facility] Red Cell Distribution Width 13.1 11.0 - 16.0 % [facility] Platelet Count 265 160 - 400 X10*3/uL [facility] Mean Platelet Volume 11.7 9.4 - 12.3 fL [facility] Neutrophils Percent Auto 55.6 45 - 73 % [facility] Imm Gran Pct Auto 0.6(H) 0.0 - 0.4 % [facility] Lymphocytes Percent Auto 26.4 20 - 40 % [facility] Monocytes Percent Auto 8.6 2 - 11 % [facility] Eosinophils Percent Auto 8.0(H) 0 - 4 % [facility] Basophils Percent Auto 0.8 0 - 2 % [facility] NRBC Pct Auto 0.0 0.0 - 0.2 /100WBC [facility] Neutrophils Absolute Auto 3.7 2.0 - 8.3 x10*3/uL [facility] Imm Gran Abs Auto 0.04(H) 0.00 - 0.03 X10*3/uL [facility] Lymphocytes Absolute Auto 1.7 1.2 - 4.9 X10*3/uL [facility] Monocytes Absolute Auto 0.6 0.1 - 1.2 X10*3/uL [facility] Eosinophils Absolute Auto 0.5(H) 0.0 - 0.4 X10*3/uL [facility] Basophils Absolute Auto 0.1 0.0 - 0.2 X10*3/uL [facility] NRBC Abs Auto 0.000 0.0 - 0.012 X10*3/uL [facility] 02/06/2025 11:1 3 AM EDT 02/06/2025 12:56 PM EDT us Generic External Data Provider LAB BLOOD ORDERAB LES Final Result Performing Organization Address [facility]/ZIP Co de Phone Number [facility] [address] [place] [phone] * (ABNORMAL) Sed Rate by Modified Andry (02/06/2025 11:13 AM EDT) Pathologist [facility] Erythrocyte Sedimentation Rate 21(H) 0 - 20 MM/HR [facility] Comment:Patients with polycy themia and many hemoglobin abnormalitiesmay have depressed sed rates whereas patients with anemiamay have elevated sed rates. 02/06/2025 11:1 3 AM EDT 02/06/2025 12:56 PM EDT us Generic External Data Provider LAB BLOOD ORDERAB LES Final Result Performing Organization Address City/[facility]/ZIP Co de Phone Number [facility] [address] [place] [phone] * (ABNORMAL) C-reactive Protein (02/06/2025 11:13 AM EDT) C Reactive Protein 2.66(H) < or = 0.50 mg/dL [facility] 02/06/2025 11:1 3 AM EDT 02/06/2025 12:56 PM EDT us Generic External Data Provider LAB BLOOD ORDERAB LES Final Result Performing Organization Address [facility] Co de Phone Number [facility] [address] [place] [phone] * (ABNORMAL) Hemoglobin A1c (02/06/2025 11:13 AM EDT) Hemoglobin A1c 7.2(H) <6.0 % [facility] Comment:Hemoglobin A1C Refer ence Range Adults: 4.8 - 6.0 % Non diabetic: < 6.0 % Goal: < 7.0 %Additional Action Suggested: > 8.0 %Note: Hemoglobin A1c results are invalid for patients with abnormal amounts of HbF. Blood transfusions may impact the HbA1c concentration in the patient sample. Estimated Average Glucose 160 mg/dL [facility] Comment:eAG = Estimated ave rage glucose which is %A1C expressed asaverage glucose, using the formula of the [id number] Glucose study (ADAG), Diabetes Care, Vol.31,#8,2007 02/06/2025 11:1 3 AM EDT 02/06/2025 12:56 PM EDT us Generic External Data Provider LAB BLOOD ORDERAB LES Final Result Performing Organization Address [facility] de Phone Number [facility] [address] [place] [phone] * Albumin, Random Urine W/Creatinine (01/27/2025 9:31 AM EDT) Creatinine, Urine 168.19 mg/dL [facility] Microalbumin Urine 17.0 mg/L [facility] Microalbum Creatinine Ratio Ur 10.1 <30 ug/mg cr [facility] Comment:Albumin/Creatinine R atio Reference Ranges: Normal: < 30 ug/mg creatinine Microalbuminuria: 30 - 300 ug/mg creatinineClinical Albuminuria: > 300 ug/mg creatinine Urine (Urine, Random) 01/27/2025 9:31 AM EDT 01/27/2025 11:14 AM EDT Edwin Zuleta MD LAB URINE ORDERABLES Final Result Performing Organization Address City/[facility]/ZIP Co de Phone Number [facility] [address] [place] [phone] * Lipid Panel, Standard (01/27/2025 9:31 AM EDT) Triglycerides 64 <150 mg/dL [facility] Comment:Desirable Triglyceri de: less than 150 mg/dLBorderline High Triglyceride 150-199 mg/dLHigh Triglyceride: 200-499 mg/dLVery High Triglyceride: greater than or equal to 5OO mg/dL Cholesterol 134 <200 mg/dL [facility] Comment:Desirable Cholestero l: less than 200 mg/dLBorderline High Cholesterol: 200-239 mg/dLHigh Cholesterol: greater than 239 mg/dL LDL Cholesterol Calculated 61 <100 mg/dL [facility] Comment:Desirable LDL: less than 100 mg/dLNear Optimal/Above Optimal LDL: 110- 129 mg/dLBorderline High LDL: 130-159 mg/dLHigh LDL: 160-189 mg/dLVery High LDL: greater than or equal to 190 mg/dL HDL Cholesterol 61 >40 mg/dL [facility] Comment:Desirable HDL: great er than 40 mg/dL Note: This HDL assay may give artificially low results in patients with liver disease. Blood Venous blood specimen / Unknown 01/27/2025 9:31 AM EDT 01/27/2025 11:22 AM EDT Edwin Zuleta MD LAB BLOOD ORDERABLES Final Result Performing Organization Address City/[facility]/ZIP Co de Phone Number [facility] [address] [place] [phone] * (ABNORMAL) Comprehensive Metabolic Panel (01/27/2025 9:31 AM EDT) Sodium 142 135 - 145 mmol/L [facility] Potassium 4.5 3.3 - 5.1 mmol/L [facility] Chloride 102 96 - 108 mmol/L [facility] Carbon Dioxide 31(H) 22 - 29 mmol/L [facility] Anion Gap 14 12 - 20 [facility] Urea Nitrogen (BUN) 28(H) 9 - 16 mg/dL [facility] Creatinine, Serum 1.35 0.5 - 1.4 mg/dL [facility] Estimated Glomerular Filt Rate 41 [facility] Comment:Chronic Kidney Disea se: Estimated GFR < 60 mL/min/1.42o1Ftaxmk Kidney Disease: Estimated GFR < 15 mL/min/1.73m2 Glucose 108 60 - 115 mg/dL [facility] Calcium 9.3 8.4 - 10.2 mg/dL [facility] Bilirubin, Total 0.3 0.0 - 1.0 mg/dL [facility] Aspartate Amino Transferase 27 5 - 31 U/L [facility] Alanine Aminotransferase 17 0 - 31 U/L [facility] Total Protein 8.1(H) 6.5 - 8.0 g/dL [facility] Albumin Level 4.3 3.5 - 5.0 g/dL [facility] Alkaline Phosphatase 103 39 - 117 U/L [facility] Blood Venous blood specimen / Unknown 01/27/2025 9:31 AM EDT 01/27/2025 11:22 AM EDT Edwin Zuleta MD LAB BLOOD ORDERABLES Final Result [facility] [address] [place] [phone] * (ABNORMAL) POCT HGB A1C (01/09/2025 12:05 PM EDT) Hemoglobin A1C 7.2(A) 4.0 - 5.7 % QC Media Lot # [id number] Lot# Expiration Date ,974,151 Blood 01/09/2025 12:0 5 PM EDT Edwin Zuleta MD POINT OF CARE TEST EN TER/EDIT ORDERABLES Final Result * POCT Glucose (01/09/2025 12:03 PM EDT) Glucose Blood, POC 136 60 - 200 mg/dL QC Media Lot # [id number] Lot# Expiration Date ,287,416 Blood Capillary blood specimen / Unknown 01/09/2025 12:03 PM EDT Edwin Zuleta MD POINT OF CARE TEST EN TER/EDIT ORDERABLES Final Result * BI Mammogram Screening Tomosynthesis Bilateral (09/04/2023 11:35 AM EDT) Anatomical Region Laterality Modality Breast Bilateral Mammography 09/04/2023 11:3 5 AM EDT Narrative 09/26/2023 10:57 PM EDT [facility] [place] [address] Mammography Report Signed Patient: Dora Fernandez MR#: [id number] 005 : 1970 Acct:[id number] Age/Sex: 53 / F ADM Date: 09/04/23 Loc: HO.MAMMO Attending Dr: Edwin Benitez MD Ordering Physician: Edwin Benitez MD Resu lts: 1Negative Date of Service: 09/04/23 Follow Up: 1 Year From [facility] Mammogram Procedure(s): MM tomosynthesis screening BI Accession Number(s): [id number] cc: Edwin Benitez MD EXAMINATION: MM SCREENING [...] by Cecelia Sol MD in OV> 09/26/23 1644 DD/ 1135 TD/TT: Healthcare Manager: Procedure Note Donotuseinterpreter, Image - 09/26/2023 [facility] [address] [place], [place] [address] Mammography Report Signed Patient: Dora FernandezMR#: [id number] : 1970Acct:[id number] Age/Sex: 53 / FADM Date: 09/04/23 Loc: GEMINI Attending Dr: Edwin Benitez MD Ordering Physician: Edwin Benitez MDResu lts: 1Negative Date of Service: 09/04/23Follow Up: 1 Year From Orig inal Mammogram Procedure(s): MM tomosynthesis screening BI Accession Number(s): [id number] cc: Edwin Benitez MD EXAMINATION: MM SCREENING [...] by Cecelia Sol MD in OV> 09/26/23 2058 DD/ 1135 TD/TT: Healthcare Manager: Edwin Zuleta MD IMG BI PROCEDURES Fin al Result * HEPATITIS C AB W/REFL TO HCV RNA, QN, PCR (02/25/2022 9:25 AM EDT) HEPATITIS C ANTIBODY NON-REACT REMI NON-REACT REMI [facility] INDEX 0.08 <1.00 [facility] Comment: HCV antibody was non-reactive. There is no laboratory evidence of HCV infection. In most cases, no further action is required. However, if recent HCV exposure is suspected, a test for HCV RNA (test code 14265) is suggested. For additional information please refer to http://education.[employer].Twyxt/faq/JUY45s7 (This link is being provided for informational/ educational purposes only.) 02/25/2022 9:25 AM EDT Edwin Zuleta MD HISTORICAL/NON ORDERA BLE LABS Final Result [facility] [address] * Hm Colonoscopy (12/25/2018 7:41 AM EDT) Historical Provider HEALTH MAINTENANCE Final Result from Last 3 Months or Most Recently Relevant to Health Maintenance Insurance [facility] ONE CARE < 65 Care Teams Circus Trainer Relationship Specialty Start Date End Date Edwin Kirk MD [address] [place] [address] PCP - General Internal Medicine 03/31/14 Isa Curry PharmD [address] [place] [address] Pharmacist Internal Medicine 09/05/24
--- OUTSIDE RECORDS SUMMARY | 2025-03-13 11:41 | XMS_ITS | Encounter Summary ---
Author Organization [employer] [facility] Address 75 [facility] 7 [place] [address] Care Team Providers Care Technician Test Systems Name Role Phone Edwin Kirk MD Primary Care Provide r Isa Curry PharmD Unavailable [phone] Encounter Details Date Type Department Care Team (Late st Contact Info) Description 10/27/2022 Abstract [facility] [address] [place] [address] Edwin Kirk MD [address] [place], [place] [phone] Social History Tobacco Use Types Packs/Day Years [...] Description 03/20/2025 9:30 AM EDT Medication Management [facility] [address] [place] [address] Isa Curry, PharmD [address] [place], [place] [phone] 03/27/2025 10:00 AM EDT Office Visit [facility] [address] [place], [place] [phone] Edwin Kirk MD [address] [place], [place] [phone] documented as of this encounter Visit Diagnoses Not on filedocumented in this encounter Care Teams Technician Test Systems Relationship Specialty Start Date End Date Edwin Kirk MD [address] [place] [address] [phone] PCP - General Internal Medicine 03/31/14 Isa Curry, Vinod [address] [place] [address] [phone] Pharmacist Internal Medicine 09/05/24 [employer] 06/27/24 01/23/25 documented as of this encounter
--- OUTSIDE RECORDS SUMMARY | 2025-03-13 11:41 | XMS_ITS | Encounter Summary ---
Author Organization [email or web address] Address 75 [facility] 7 [place] [address] Care Team Providers Care Shoulder Puncher Name Role Phone Edwin Kirk MD Primary Care Provide r Isa Curry PharmD Unavailable [phone] Reason for Visit * Reason Comments Med Refill Encounter Details Date Type Department Care Team ([facility] st Contact Info) Description 12/26/2023 Refill [facility] [address] [place] [address] Annmarie Brewster MD [address] [place] [address] Heartburn Social History Tobacco Use Types Packs/Day [...] Medication Management [facility] [address] [place] [address] Isa Curry PharmD [address] [place] [address] 03/27/2025 10:00 AM EDT Office Visit [facility] [address] [place] [address] Edwin Kirk MD [address] [place] [address] documented as of this encounter Visit Diagnoses Diagnosis Heartburn documented in this encounter Care Teams Shoulder Puncher Relationship Specialty Start Date End Date Edwin Kirk MD [address] [place] [address] PCP - General Internal Medicine 03/31/14 Isa Curry PharmD [address] [place] [address] Pharmacist Internal Medicine 09/05/24 [employer] 06/27/24 01/23/25 documented as of this encounter
--- OUTSIDE RECORDS SUMMARY | 2025-03-13 11:41 | XMS_ITS | Encounter Summary ---
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) Procedures MR Foot w/ and w/o Contrast Right Franklin Edwards MD [address] [place] [address] Phone: tel: fax: [address] Phone: tel: fax: Referral ID Status Reason Start Date Expiration Date V isits Requested Visits Authorized [id number] Canceled 02/06/2025 02/06/2026 1 1 Encounter Details Date Type Department Care Team (Late st Contact Info) Description 02/06/2025 Orders Only [facility] [address] [place], [place] [phone] Franklin Edwards MD [address] [place], [place] [phone] Ulcer of right foot with necrosis of [...] Description 03/20/2025 9:30 AM EDT Medication Management [facility] [address] [place] [address] Isa Curry, PharmD [address] [place], [place] [phone] 03/27/2025 10:00 AM EDT Office Visit [facility] [place], [place] [phone] Edwin Kirk MD [address] [facility] [place] [address] Scheduled Orders Name Type Priority Associated Diagnoses [...] AM EDT) Calcitonin (Thyrocalcitonin) <2 <=5 pg/mL [facility] Comment:This test was perfor med using the SiemensChemiluminescent method. 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
--- OUTSIDE RECORDS SUMMARY | 2025-03-13 11:41 | XMS_ITS | Clinical Summary ---
Author Organization [facility] Address 10 [facility] MENG [address] [place] [address] Phone Care Team Providers Care Materials Branch Chief Name Role Phone Edwin Castañeda MD Primary [...] day). Today pt's daughter tells me the Wet End Supervisor Dr Mckeon cancelled the appointment. EKG today [...] % PVNMA 06/23/2020 us [facility] [id number] LICITED RESULTS Final Result PVNMA from Last 3 Months or Most Recently Relevant to Health Maintenance Insurance MCR ([id number]) MCR ([id number]) Care Teams Materials Branch Chief Relationship Specialty Start Date End Date Edwin Castañeda MD PCP - General 06/29/20
--- OUTSIDE RECORDS SUMMARY | 2025-03-13 11:41 | XMS_ITS | Encounter Summary ---
Author Organization [email or web address] Address 75 [facility] 7t [place] [address] Care Team Providers Care Rodent Exterminator Name Role Phone Edwin Kirk MD Primary Care Provide r Isa Curry PharmD Unavailable [phone] Reason for Visit * Reason Comments Med Refill Encounter Details Date Type Department Care Team ([facility] st Contact Info) Description 12/26/[address] [facility] [address] [place] [address] Edwin Kirk MD [address] [place], [place] [phone] Diabetic polyneuropathy associated with type 2 diabetes [...] Description 03/20/2025 9:30 AM EDT Medication Management [facility] [address] [place] [address] Isa Curry PharmD [address] [place] [address] 03/27/2025 10:00 AM EDT Office Visit [facility] [address] [place] [address] Edwin Kirk MD [address] [place] [address] documented as of this encounter Visit Diagnoses Diagnosis Diabetic polyneuropathy associated with type 2 diabetes mellitus ([facility]) Low vitamin D level documented in this encounter Care Teams Rodent Exterminator Relationship Specialty Start Date End Date Edwin Kirk MD [address] [place] [address] PCP - General Internal Medicine 03/31/14 Isa Curry PharmD [address] [place] [address] [phone] Pharmacist Internal Medicine 09/05/24 [employer] 06/27/24 01/23/25 documented as of this encounter
--- OUTSIDE RECORDS SUMMARY | 2025-03-13 11:41 | XMS_ITS | Encounter Summary ---
Author Organization [employer] Address 75 [facility] 7t [place] [address] Care Team Providers Care Principal System Software Engineer Name Role Phone Edwin Kirk MD Primary Care Provide r Isa Curry PharmD Unavailable [phone] Reason for Visit * Reason Onset Date Comments Hospital Follow-up 06/26/2024 Encounter Details Date Type Department Care Team ([facility] st Contact Info) Description 06/26/2024 Telephone [facility] 230 [place] [address] Edwin Kirk MD [address] [place], [place] [phone] Hospital Follow-up Social History Tobacco Use Types [...] from pt requesting a HDF appt. Hospital: [facility] Date of admission: 06/24/24 Discharge date: 06/26/24 Diagnosed: Foot infection *Send message to [place] Clinical Care Coordinators documented in this encounter Plan of Treatment Upcoming Encounters Date Type Department Care Team (Late st Contact Info) Description 03/20/2025 9:30 AM EDT Medication Management [facility] [address] [place] [address] Isa Curry, Vinod [address] [place] [address] 03/27/2025 10:00 AM EDT Office Visit [facility] [address] [place] [address] Edwin Kirk MD [address] [place] [address] documented as of this encounter Goals Goal [...] documented as of this encounter Care Teams Principal System Software Engineer Relationship Specialty Start Date End Date Edwin Kirk MD [address] [place] [address] PCP - General Internal Medicine 03/31/14 Isa Curry, Vinod [address] [place] [address] Pharmacist Internal Medicine 09/05/24 [employer] [facility] 06/27/24 01/23/25 documented as of this encounter
--- OUTSIDE RECORDS SUMMARY | 2025-03-13 11:41 | XMS_ITS | Encounter Summary ---
Author Organization [employer] Address 75 [facility] 7t [place] [address] Care Team Providers Care Agriculture Teacher Name Role Phone Edwin Kirk MD Primary Care Provide r Isa Curry PharmD Unavailable [phone] Encounter Details Date Type Department Care Team ([facility] st Contact Info) Description 10/12/2023 Orders Only [facility] [address] [place] [address] ProviderChasity MD Social History Tobacco Use Types [...] Description 03/20/2025 9:30 AM EDT Medication Management [facility] [address] [place] [phone] Isa Curry PharmD [address] [place] [address] 03/27/2025 10:00 AM EDT Office Visit [facility] [address] [place] [address] [phone] Edwin Kirk MD [address] [place] [address] [phone] documented as of this encounter Procedures Procedure Name Priority Date/Time Associated Diagnosis Comments HM COLONOSCOPY Routine 12/25/2018 7:41 AM EDT documented in this encounter Results * Hm Colonoscopy (12/25/2018 7:41 AM EDT) Historical Provider HEALTH MAINTENANCE Final Result documented in this encounter Visit Diagnoses Not on filedocumented in this encounter Care Teams Agriculture Teacher Relationship Specialty Start Date End Date Edwin Kirk MD [address] [place] [address] [phone] PCP - General Internal Medicine 03/31/14 Isa Curry PharmD [address] [place] [address] [phone] Pharmacist Internal Medicine 09/05/24 [employer] 06/27/24 01/23/25 documented as of this encounter
--- OUTSIDE RECORDS SUMMARY | 2025-03-13 11:42 | XMS_ITS | Encounter Summary ---
Author Organization [employer] Address 75 [facility] 7t [place] [address] Care Team Providers Care Mushroom Cultivator Name Role Phone Edwin Kirk MD Primary Care Provide r Isa Curry PharmD Unavailable Encounter Details Date Type Department Care Team ([facility] Contact Info) Description 12/12/2024 Telephone [facility] MEDICINE [address] [place] [address] Edwin Kirk MD [address] [place], [place] [phone] Social History Tobacco Use Types Packs/Day Years [...] Description 03/20/2025 9:30 AM EDT Medication Management [facility] MED[facility]INE [address] [place] [address] Isa Curry, PharmD [address] [place] [address] 03/27/2025 10:00 AM EDT Office Visit [facility] [address] [place] [address] [phone] Edwin Kirk MD [address] [place] [address] documented as of this encounter Goals Goal [...] documented as of this encounter Care Teams Mushroom Cultivator Relationship Specialty Start Date End Date Edwin Kirk MD [address] [place] [address] PCP - General Internal Medicine 03/31/14 Isa Curry PharmD [address] [place] [address] Pharmacist Internal Medicine 09/05/24 [employer] 06/27/24 01/23/25 documented as of this encounter
--- OUTSIDE RECORDS SUMMARY | 2025-03-13 11:42 | XMS_ITS | Encounter Summary ---
Author Organization [employer] Address 75 [facility] 7t [place] [address] Care Team Providers Care Manager Internal Name Role Phone Edwin Kirk MD Primary Care Provide r Isa Curry PharmD Unavailable [phone] Reason for Visit * Reason Comments Med Refill Encounter Details Date Type Department Care Team ([facility] st Contact Info) Description 10/25/2024 Refill [facility] [address] [place] [address] Sherrie Carey, ANP [address] [place] [address] Diabetic polyneuropathy associated with type 2 diabetes [...] Description 03/20/2025 9:30 AM EDT Medication Management [facility] [address] [place] [phone] Isa Curry PharmD [address] [place] [address] 03/27/2025 10:00 AM EDT Office Visit [facility] [address] [place] [address] Edwin Kirk MD [address] [place] [address] documented as of this encounter Goals Goal [...] documented as of this encounter Care Teams Manager Internal Relationship Specialty Start Date End Date Edwin Kirk MD [address] [place] [address] PCP - General Internal Medicine 03/31/14 Isa Curry PharmD [address] [place] [address] Pharmacist Internal Medicine 09/05/24 [employer] 06/27/24 01/23/25 documented as of this encounter
--- OUTSIDE RECORDS SUMMARY | 2025-03-13 11:42 | XMS_ITS | Encounter Summary ---
Author Organization [employer] Address 75 [facility] 7t [place] [address] Care Team Providers Care Group President Name Role Phone Edwin Kirk MD Primary Care Provide r Isa Curry PharmD Unavailable [phone] Reason for Visit * Reason Comments Med Refill Encounter Details Date Type Department Care Team ([facility] st Contact Info) Description 10/25/2024 Refill [facility] [address] [place] [address] Sherrie Carey, ANP [address] [place] [address] Diabetic polyneuropathy associated with type 2 diabetes [...] AM EDT Medication Management [facility] [address] [place] [address] Isa Curry PharmD [address] [place] [address] 03/27/2025 10:00 AM EDT Office Visit [facility] [address] [place] [address] Edwin Kirk MD [address] [place] [address] documented as of this encounter Goals Goal [...] documented as of this encounter Care Teams Group President Relationship Specialty Start Date End Date Edwin Kirk MD [address] [place] [address] PCP - General Internal Medicine 03/31/14 Isa Curry PharmD [address] [place] [address] Pharmacist Internal Medicine 09/05/24 [employer] 06/27/24 01/23/25 documented as of this encounter
--- OUTSIDE RECORDS SUMMARY | 2025-03-13 11:42 | XMS_ITS | Encounter Summary ---
Author Organization [employer] Address [address] [place] [address] 7 [place] [address] Care Team Providers Care Cutlery Grinder Name Role Phone Edwin Kirk MD Primary Care Provide r Isa Curry PharmD Unavailable [phone] Encounter Details Date Type Department Care Team (Late st Contact Info) Description 11/23/2022 [facility] Health Information Management [address] [place] [address] Edwin Kirk MD [address] [place], [place] [phone] Social History Tobacco Use Types Packs/Day Years [...] 03/20/2025 9:30 AM EDT Medication Management [facility] [address] [place] [address] Isa Curry, PharmD [address] [place] [address] 03/27/2025 10:00 AM EDT Office Visit [facility] [address] [place], [place] [phone] Edwin Kirk MD [address] [place], [place] [phone] documented as of this encounter Visit Diagnoses Not on filedocumented in this encounter Care Teams Cutlery Grinder Relationship Specialty Start Date End Date Edwin Kirk MD [address] [place] [address] [phone] PCP - General Internal Medicine 03/31/14 Isa Curry PharmD [address] [place] [address] [phone] Pharmacist Internal Medicine 09/05/24 [employer] 06/27/24 01/23/25 documented as of this encounter
--- OUTSIDE RECORDS SUMMARY | 2025-03-13 11:42 | XMS_ITS | Patient Health Record ---
Author Organization [facility] Address [address] [facility] [place] [address] Care Team Providers Care Pest Management Supervisor Name Role Phone Garry Zuleta MD, Edwin Primary Care Provide r Unavailable Cristofer Hilario Unavailable [phone] Allergies No Known Allergies Results Component Value [...] Problem Acquired hammer toe of right foot (664183493783312 5) Other hammer toe(s) (acquired), right foot (M20.41) Active confirmed Problem Acquired hammer toe of left foot (714918631835432 3) Other hammer toe(s) (acquired), left foot (M20.42) Active confirmed Problem Polyneuropathy due to type 2 diabetes mellitus (165723527) Type 2 diabetes mellitus with diabetic polyneuropathy [...] Ordered Date Performed Result Body Sit e 15417-OSGVDVW NAIL, 6 OR MORE 04/05/2024 N/A 75322-EUDI SKIN LESIONS, OVER 4 04/05/2024 N/A 10545-VNJHDMX NAIL, 6 OR MORE 07/12/2024 N/A 50092-LGGCITL SKIN/TISSUE 07/12/2024 N/A 71322-VDFA SKIN LESIONS, OVER 4 07/12/2024 N/A 35988-OSHAZKQ NAIL, 6 OR MORE 10/18/2024 N/A 52599-HMBRUBZ SKIN/TISSUE 10/18/2024 N/A 14301-MRJE SKIN LESIONS, OVER 4 10/18/2024 N/A 02820-COLOSMS NAIL, 6 OR MORE 01/24/2025 N/A 70997-WFZUSSK SKIN/TISSUE 01/24/2025 N/A 40151-ZUVT SKIN LESIONS, OVER 4 01/24/2025 N/A Encounters Encounter Location Date Provider Diagnosis [address] [address] 04/05/2024 Cristofer Hilario Type 2 diabetes mellitus with diabetic polyneuropathy E11.42 ; Tinea unguium B35.1 ; Other hammer toe(s) (acquired), right foot M20.41 and Other hammer toe(s) (acquired), left foot M20.[address] [address] 07/12/2024 Cristoferreyna Hilario Type 2 diabetes mellitus with diabetic polyneuropathy E11.42 ; Tinea unguium B35.1 ; Other hammer toe(s) (acquired), right foot M20.41 ; Other hammer toe(s) (acquired), left foot M20.42 and Neuropathic ulcer of right foot with fat layer exposed L97.[address] [address] 10/18/2024 Cristofer Hilario Type 2 diabetes mellitus with diabetic polyneuropathy E11.42 ; Tinea unguium B35.1 and Neuropathic ulcer of right foot with fat layer exposed L97.[address] [address] 01/24/2025 Cristofer Hilario Type 2 diabetes mellitus with diabetic polyneuropathy E11.42 ; Tinea unguium B35.1 and Neuropathic ulcer of right foot with fat layer exposed L97.[address] [address] 04/05/2024 Cristofer Hilario [address] [address] 01/24/2025 Cristofer Hilario Assessments Encounter Date Diagnosis (ICD [...] X ray : Foot, right 3V 04/13/2022 79611-XXBAXAT NAIL, 6 OR MORE 08/29/2022 12335-FAGYXTH NAIL, 6 OR MORE 03/02/2022 84226-BLEJJSF NAIL, 6 OR MORE 11/02/2022 96709-LBPKHKO NAIL, 6 OR MORE 02/23/2023 84086-NNRVHPH NAIL, 6 OR MORE 05/24/2021 64396-ZFGPALW NAIL, 6 OR MORE 08/02/2021 53056-TJJYGGE NAIL, 6 OR MORE 10/11/2021 35284-FGXJAOR NAIL, 6 OR MORE 12/22/2021 26178-YKGYPWN NAIL, 6 OR MORE 11/18/2019 51885-NDMDKWY NAIL, 6 OR MORE 02/03/2020 09049-AXUBXYP NAIL, 6 OR MORE 06/01/2020 69659-GEWHTVL NAIL, 6 OR MORE 08/10/2020 54518-WWWFOMW NAIL, 6 OR MORE 10/19/2020 99619-WKAPHXH NAIL, 6 OR MORE 12/28/2020 84569-KKEJTRT NAIL, 6 OR MORE 03/15/2021 52510-CPKKRUQ NAIL, 6 OR MORE 05/16/2023 18496-ODWJGKZ NAIL, 6 OR MORE 07/28/2023 50321-NPTMBKX NAIL, 6 OR MORE 10/06/2023 90955-XYOPBDZ NAIL, 6 OR MORE 04/05/2024 10193-OLAGJMY NAIL, 6 OR MORE 07/12/2024 28435-GAGFBKO NAIL, 6 OR MORE 10/18/2024 53472-ZVKCQWU NAIL, 6 OR MORE 01/24/2025 31614-JLGYIBS NAIL, 1-5 08/12/2019 34584- Debride <25 sq cm 06/01/2020 03311- Debride <25 sq cm 02/03/2020 33851- Debride <25 sq cm 04/13/2022 56342-XPKROGD SKIN/TISSUE 07/12/2024 48456-RLJQAWQ SKIN/TISSUE 01/24/2025 88748-CHXQPHR SKIN/TISSUE 10/18/2024 67264-QXSWJJN SKIN/TISSUE 05/16/2023 63572-GIYQ SKIN LESIONS, OVER 4 05/16/20 23 08799-VKPZ SKIN LESIONS, OVER 4 07/28/19 51002-VKEA SKIN LESIONS, OVER 4 04/05/20 05143-ZDLE SKIN LESIONS, OVER 4 10/06/19 66943-KLVB SKIN LESIONS, OVER 4 10/19/19 96369-STIQ SKIN LESIONS, OVER 4 01/25/20 87233-IVGW SKIN LESIONS, OVER 4 07/12/19 25264-DFLE SKIN LESIONS, OVER 4 02/03/20 27162-EDTJ SKIN LESIONS, OVER 4 06/01/20 87008-NIEL SKIN LESIONS, OVER 4 11/18/19 38231-DKAY SKIN LESIONS, OVER 4 03/15/20 67984-EWKS SKIN LESIONS, OVER 4 12/29/19 84406-XBVT SKIN LESIONS, OVER 4 10/20/19 31163-FHDF SKIN LESIONS, OVER 4 08/10/19 81621-RQOH SKIN LESIONS, OVER 4 12/23/19 86182-SQOH SKIN LESIONS, OVER 4 10/12/19 71292-KDUF SKIN LESIONS, OVER 4 08/02/19 53891-PBMW SKIN LESIONS, OVER 4 05/24/20 30848-MYND SKIN LESIONS, OVER 4 02/24/20 93313-SGSP SKIN LESIONS, OVER 4 11/03/19 33467-UDKX SKIN LESIONS, OVER 4 03/02/20 69430-DAZP SKIN LESIONS, OVER 4 08/30/19 23 52860-LBIK SKIN LESIONS, 2 TO 4 08/12/19 20 76111-Cdal. Subungual Hematoma 3 Next Appt Details Provider Name:Cristofer Hilario , 05/13/2025 01:45:00 PM, [address] [place] [address], [phone], Insurance Providers Payer Name Payer Address Payer Phone Subscriber Number Group Number Insured Name Patient Relationship to Insured Coverage Start Date Coverage End Date [facility]ly [facility] [employer] Claims [address] [place] Payne [phone] [id number] Dora Fernandez Self - patient is the [...] Amputation, T6, T7 Hospitalization History Reason Date(Month/Year) [facility] [place] ER- infection 06/2024
== END 2025-03-13 10:00 | disposition home or self-care (01) ==
LOC: HO.HGS 09:48
PROVIDERS: PCP Internal Medicine; Visit Provider Surgery
DX: M86.9 Osteomyelitis, unspecified (principal)
CPT/HCPCS: 99213

== ENCOUNTER → 2025-03-13 09:47 | Outpatient (BNVA) | payer OTHER, SELFPAY | PROVIDERS: PCP Internal Medicine; Visit Provider Surgery | DX: M86.171 Other acute osteomyelitis, right ankle and foot (principal) | CPT/HCPCS: 99212 ==

== ENCOUNTER 2025-03-19 14:37 | Outpatient (REF) | payer OTHER, SELFPAY ==
--- NOTE | ~2025-03-19 | MM_ITS ---
EXAMINATION: MM SCREENING DIGITAL BREAST TOMOSYNTHESIS, BILATERAL CLINICAL INFORMATION: Screening. Asymptomatic. COMPARISON: Mammography: Comparison is made with available priors TECHNIQUE: Digital breast mammography with tomosynthesis is performed in both the craniocaudal and mediolateral oblique views along with computer-aided detection (CAD). FINDINGS: There are scattered areas of fibroglandular density. There are no significant masses, abnormal calcifications, or other abnormalities. MM/MM tomosynthesis screening BI IMPRESSION: No mammographic evidence of malignancy. ASSESSMENT: BI-RADS Category 1: Negative RECOMMENDATION: Routine annual mammography screening. 1 year F/U This examination should not preclude the clinical evaluation of a suspicious palpable abnormality. This patient's information was entered into a reminder system with a target due date for their next mammogram. Electronically signed by: Sara Lutz DO 03/20/2025 08:43 AM EDT
--- OUTSIDE RECORDS SUMMARY | 2025-03-19 15:48 | XMS_ITS | Encounter Summary ---
Author Organization [employer] Address [address] [place] [address] 7 [place] [address] Care Team Providers Care Underground Electrician Name Role Phone Edwin Kirk MD Primary Care Provide r Isa Curry PharmD Unavailable [phone] Reason for Referral * Imaging (STAT) - Canceled Specialty Diagnoses / Procedures Referred By Contac t Referred To Contact Radiology Diagnoses Ulcer of right foot with necrosis of muscle (HCC) Procedures MR Foot w/ and w/o Contrast Right Franklin Edwards MD [address] [place] [address] Phone: tel: fax: [address] Phone: tel: fax: Referral ID Status Reason Start Date Expiration Date V isits Requested Visits Authorized [id number] Canceled 02/06/2025 02/06/2026 1 1 Encounter Details Date Type Department Care Team (Late st Contact Info) Description 02/06/2025 Orders Only [facility] [address] [place], [place] [phone] Franklin Edwards MD [address] [place], [place] [phone] Ulcer of right foot with necrosis of [...] Description 03/20/2025 9:30 AM EDT Medication Management [facility] MEDICINE [address] [place] [address] Isa Curry, PharmD [address] [place], [place] [phone] 03/27/2025 10:00 AM EDT Office Visit [facility] [address] [facility] [place] [phone] Edwin Kirk MD [address] [place] [address] Scheduled Orders Name Type Priority Associated Diagnoses [...] AM EDT) Calcitonin (Thyrocalcitonin) <2 <=5 pg/mL [facility] Comment:This test was perfor med using the SiemensChemiluminescent method. Values obtained withdifferent assay methods cannot be used interchangeably.Calcitonin levels, regardless of value, should not beinterpreted as absolute evidence of the presence orabsence of the disease.THIS TEST WAS PERFORMED AT:[id number] [place] [address]UMIIQLGALEXANDER CUETO MD,PHD 02/06/2025 11:2 3 AM EDT 02/06/2025 12:56 PM EDT us Generic External Data Provider LAB BLOOD ORDERAB LES Final Result [facility] [address] [place] [phone] documented in this encounter Visit Diagnoses Diagnosis Ulcer of right foot with necrosis of muscle (HCC)- Primary documented in this encounter Additional Health Concerns Assessment Noted Time PHQ-9 Depression Total Score: 13 07/17/ 025 10:20 AM EST documented as of this encounter Care Teams Underground Electrician Relationship Specialty Start Date End Date Edwin Kirk MD [address] [place] [id number] PCP - General Internal Medicine 03/31/14 Isa Curry PharmD [address] [place] [address] Pharmacist Internal Medicine 09/05/24 documented as of this encounter
--- OUTSIDE RECORDS SUMMARY | 2025-03-19 15:48 | XMS_ITS | Encounter Summary ---
Author Organization [employer] Address [address] [facility] 7t [place] [address] Care Team Providers Care Staff Electrical Engineer Name Role Phone Edwin Kirk MD Primary Care Provide r Isa Curry PharmD Unavailable [phone] Reason for Visit * Reason Comments Med Refill Encounter Details Date Type Department Care Team ([facility] st Contact Info) Description 10/25/2024 Refill [facility] MEDICINE [address] [place] [address] Sherire Carey, ANP [address] [place] [address] Diabetic polyneuropathy associated with type 2 diabetes [...] Description 03/20/2025 9:30 AM EDT Medication Management [facility] MEDICINE [address] [place] [phone] Isa Curry PharmD [address] [place] [address] 03/27/2025 10:00 AM EDT Office Visit [facility] MEDICINE [address] [place] [address] Edwin Kirk MD [address] [place] [address] documented as of this encounter Goals Goal [...] polyneuropathy associated with type 2 diabetes mellitus (HCC) documented in this encounter Additional Health Concerns Assessment Noted Time PHQ-9 Depression Total Score: 13 025 10:20 AM EST documented as of this encounter Care Teams Staff Electrical Engineer Relationship Specialty Start Date End Date Edwin Kirk MD [address] [place] [address] PCP - General Internal Medicine 03/31/14 Isa Curry PharmD [address] [place] [address] Pharmacist Internal Medicine 09/05/24 [employer] [facility] 06/27/24 01/23/25 documented as of this encounter
--- OUTSIDE RECORDS SUMMARY | 2025-03-19 15:48 | XMS_ITS | Encounter Summary ---
Author Organization [employer] Address [address] [facility] 7 [place] [address] Care Team Providers Care Passenger Coach Driver Name Role Phone Edwin Kirk MD Primary Care Provide r Isa Curry PharmD Unavailable [phone] Reason for Visit * Reason Comments Med Refill Encounter Details Date Type Department Care Team ([facility] st Contact Info) Description 03/14/[address] [facility] MEDICINE [address] [place] [address] Edwin Kirk MD [address] [place] [address] Social History Tobacco Use Types Packs/Day Years [...] 9:30 AM EDT Medication Management [facility] MEDICINE [address] [place] [address] Isa Curry, Vinod [address] [place] [address] 03/27/2025 10:00 AM EDT Office Visit [facility] MEDICINE [address] [place] [address] Edwin Kirk MD [address] [place] [address] documented as of this encounter Goals Goal Patient Goal Type Associated Problems Recent Progress Patient-Stated? Author Keep fasting blood glucose between 70 and 130 Result Component Type 2 diabetes mellitus with diabetic neuropathic arthropathy, with long-term current use of insulin Worsening( 5:47 PM EDT) Maximo Joseph, PharmD documented as of this encounter Visit Diagnoses Not on filedocumented in this encounter Additional Health Concerns Assessment Noted Time PHQ-9 Depression Total Score: 13 025 10:20 AM EST documented as of this encounter Care Teams Passenger Coach Driver Relationship Specialty Start Date End Date Edwin Kirk MD [address] [place] [address] PCP - General Internal Medicine 03/31/14 Isa Curry PharmD [address] [place] [address] Pharmacist Internal Medicine 09/05/24 documented as of this encounter
--- OUTSIDE RECORDS SUMMARY | 2025-03-19 15:48 | XMS_ITS | Encounter Summary ---
Author Organization [employer] Address [address] [facility] 7t [place] [address] Care Team Providers Care Alemite Operator Name Role Phone Edwin Kirk MD Primary Care Provide r Isa Curry PharmD Unavailable [phone] Reason for Visit * Reason Comments Med Refill Encounter Details Date Type Department Care Team ([facility] st Contact Info) Description 10/25/2024 Refill [facility] MEDICINE [address] [place] [address] Sherrie Carey, ANP [address] [place] [address] Diabetic polyneuropathy associated with type 2 diabetes [...] Description 03/20/2025 9:30 AM EDT Medication Management [facility] MEDICINE [address] [place] [address] Isa Curry PharmD [address] [place] [address] 03/27/2025 10:00 AM EDT Office Visit [facility] MEDICINE [address] [place] [address] Edwin Kirk MD [address] [place] [address] documented as of this encounter Goals Goal [...] documented as of this encounter Care Teams Alemite Operator Relationship Specialty Start Date End Date Edwin Kirk MD [address] [place] [address] PCP - General Internal Medicine 03/31/14 Isa Curry PharmD [address] [place] [address] Pharmacist Internal Medicine 09/05/24 [employer] 06/27/24 01/23/25 documented as of this encounter
--- OUTSIDE RECORDS SUMMARY | 2025-03-19 15:48 | XMS_ITS | Clinical Summary ---
Author Organization [employer] Address [address] [facility] [address] [place] [address] Care Team Providers Care Plumbing Mechanic Name Role Phone Edwin Kirk MD Primary Care Provide r Isa Curry PharmD Unavailable [phone] Allergies No known active allergies Medications buPROPion XL (Wellbutrin XL) 300 MG 24 hr tablet Take 1 tablet by mouth in the morning. 023 Active escitalopram (Lexapro) 10 MG tablet Take 1.5 tablets by mouth in the morning. 023 Active eszopiclone (Lunesta) 3 MG tablet Take 1 tablet by mouth if needed at bedtime. 023 Active nitroglycerin (Nitrostat) 0.4 MG SL tablet DISSOLVE 1 TABLET UNDER THE TONGUE EVERY 5 MINUTES NEEDED FOR CHEST PAIN. CALL 911 IF NO RELIEF Active OXcarbazepine (Trileptal) 300 MG tablet Take 1 tablet by mouth 2 times daily. 023 Active Blood Glucose Monitoring Suppl (FreeStyle Lite) w/Device kit 1 Device before breakfast, before lunch, and before evening meal. 1 kit 023 Active Blood Pressure Monitor kit 1 each in the morning. Use to check blood pressure at least once daily after taking medication 1 kit 024 Active celecoxib (CeleBREX) 200 MG capsule Take 200 mg by mouth 2 times daily. 024 Active atorvastatin (Lipitor) 40 MG tablet [...] arthropathy, with long-term current use of insulin ([facility]) TAKE 1 TABLET BY MOUTH TWICE DAILY 100 each 025 Active TRUEplus Lancets 33G miscIndications: Type 2 diabetes mellitus with diabetic neuropathic arthropathy, with long-term current use of insulin ([facility]) TEST BLOOD SUGAR TWICE DAILY 100 each 025 Active FREESTYLE LITE test stripIndications :Type 2 diabetes mellitus with diabetic neuropathic arthropathy, with long-term current use of insulin ([facility]) TEST BLOOD SUGAR TWICE DAILY 100 strip 025 Active insulin aspart (NovoLOG FLEXPEN) 100 UNIT/ML penIndications:T ype 2 diabetes mellitus with diabetic neuropathic arthropathy, with long-term current use of insulin ([facility]) IN 0 TO 12 UNITS SUBCUTANEOUSLY THREE TIMES DAILY DIRECTED by sliding scale 60 mL 1 025 Active omeprazole (PriLOSEC) [address] capsuleIndicatio ns:Heartburn Take 1 capsule (20 mg) by mouth in the morning. Do not crush or chew. 90 capsule 025 Active D3 Super Strength 50 MCG (2000 UT) capsuleIndicatio ns:Low vitamin D level TAKE 1 CAPSULE BY MOUTH EVERY MORNING 90 capsule 1 025 Active Tirzepatide (Mounjaro) 5 MG/0.5ML solution auto-injectorInd ications:Type 2 diabetes mellitus with diabetic neuropathic arthropathy, with long-term current use of insulin ([facility]) Inject 5 mg under the skin 1 (one) time per week. 2 mL 1 025 Active amoxicillin-clav ulanate (Augmentin) 875-125 MG tabletIndication s:Ulcer of right foot with necrosis of muscle ([facility]) Take 1 tablet by mouth 2 times [...] arthropathy, with long-term current use of insulin ([facility]) INJECT 40 UNITS SUBCUTANEOUSLY AT BEDTIME 4.5 mL 5 025 Active gabapentin (Neurontin) 300 MG capsuleIndicatio ns:Diabetic polyneuropathy associated with type 2 diabetes mellitus ([facility]) TAKE 1 CAPSULE BY MOUTH TWICE DAILY IN THE MORNING AND AT BEDTIME 60 capsule Active Embecta Pen Needle Tonja 32G X 4 MM misc USE DIRECTED TO TEST BLOOD SUGAR FOUR TIMES DAILY 100 each 11 Active Pentips 32G X 4 MM misc USE DIRECTED FOUR TIMES DAILY 100 each 024 2024 Discontinued metoprolol succinate XL (Toprol-XL) 25 MG 24 hr tabletIndication s:Benign essential hypertension TAKE 1 TABLET BY MOUTH EVERY EVENING DO NOT BREAK, CRUSH, DISSOLVE OR CHEW 30 tablet 3 025 2024 Discontinued insulin glargine (Toujeo SoloStar) 300 UNIT/ML injectionIndicat ions:Type 2 diabetes mellitus with diabetic neuropathic arthropathy, with long-term current use of insulin ([facility]) INJECT 40 UNITS SUBCUTANEOUSLY EVERY DAY AT BEDTIME 4.5 mL 1 025 2024 Discontinued gabapentin (Neurontin) 300 MG capsuleIndicatio ns:Diabetic polyneuropathy associated with type 2 diabetes mellitus ([facility]) TAKE 1 CAPSULE BY MOUTH TWICE DAILY IN THE MORNING AND AT BEDTIME 60 capsule 025 2024 Discontinued(R eorder (will not trigger notification to Pharmacy)) Active Problems Problem Noted Date Diagnosed Date Ulcer of right foot with necrosis of muscle 06/20 Overview (07/17/2024): Admitted [facility] (06/24/2024 - 06/26/2024) for right foot [...] hours for 7 day Patient followed with [facility] general surgeons 07/08/2024 Dr. Lim recommending follow [...] & Plan (07/17/2024 9:37 AM EST): Admitted [facility] (06/24/2024 - 06/26/2024) for right foot [...] hours for 7 day Patient followed with [facility] general surgeons 07/08/2024 Dr. Lim recommending follow [...] Morbid obesity with BMI of 50.0-59.9, adult ([facility]) 01/09/2024 Assessment & Plan (10/10/2024 9:17 AM EDT): [...] 2 diabetes mellitus 10/13/2022 Obesity hypoventilation syndrome (CMS/HCC) 08/11 Assessment & Plan (10/10/2024 9:11 AM EDT): [...] EDT): Televisit Underwent extensive cardiac evaluation by [employer] nuclear stress test done on 09/02/2022 with [...] day). Today pt's daughter tells me the [facility] [employer] Dr Mckeon cancelled the appointment. EKG today [...] Dental Exam: >6 months Recent hospitalization at [facility] 06/24/2024 - 06/26/2024. Saw CDTM on [...] Dental Exam: >6 months Recent hospitalization at [facility] 06/24/2024 - 06/26/2024. Saw CDTM on [...] less than 150mg/dl - F/U with new CDTM pharmacist for continued titration on 02/11. Monitoring: [...] loss. Chronic kidney disease, stage III (moderate) (CM S/HCC) 06/19/1961 Overview (07/17/2024): CrCl (adj bw) 65.3 ml/min [...] Date Diagnosed Date Resolved Date Acute osteomyelitis ([facility]) 01/10/2023 01/09/2024 Assessment & Plan (01/26/2023 10:23 AM EDT): [...] right foot limited to breakdown of skin ([facility]) 08/08/2022 01/09/2024 Encounters Date Type Department Care Team Description 03/14/2025 Refill [facility] [address] [place] [address] Edwin Kirk MD 03/14/2025 Refill [facility] [address] [place] [address] Edwin Kirk MD Diabetic polyneuropathy associated with type 2 diabetes mellitus ([facility]) 03/07/2025 Refill [facility] [address] [place] [address] Isa Curry, PharmD Type 2 diabetes mellitus with diabetic neuropathic arthropathy, with long-term current use of insulin ([facility]) 03/06/2025 Orders Only [facility] External Provider, [facility] 03/05/2025 Refill [facility] [address] [place] [address] Luh Weston MD Benign essential hypertension 02/13/2025 Telephone [facility] [address] [place] [address] Franklin Edwards MD MRI FOOT 02/06/2025 Telephone [facility] [address] [place] [address] Tram Merritt, RN Results 02/06/2025 Orders Only [facility] [address] [place], [place] [phone] Franklin Edwards MD Ulcer of right foot with necrosis of muscle ([facility]) (Primary Dx) 02/06/2025 Orders Only [facility] [address] [place] [address] Edwin Kirk MD 02/06/2025 Travel 01/16/2025 Refill [facility] [address] [place] [address] Edwin Kirk MD Low vitamin D level 01/09/2025 11:30 AM EDT Office Visit [facility] [address] [place] [address] Edwin Kirk MD Type 2 diabetes mellitus with diabetic neuropathic arthropathy, with long-term current use of insulin (CMS/HCC) (Primary Dx); Diabetic polyneuropathy associated with type 2 diabetes mellitus (CMS/HCC); Benign essential hypertension; Heartburn; Breast cancer screening by mammogram; Preventative health care 01/09/2025 Travel 01/06/2025 Refill [facility] [address] [place] [address] Edwin Kirk MD Diabetic polyneuropathy associated with type 2 diabetes mellitus ([facility]/HCC) from Last 3 Months Immunizations Immunization Administration [...] Description 03/20/2025 9:30 AM EDT Medication Management [facility] [address] [place] [address] Isa Curry, GurmeetD [address] [place] [address] 03/27/2025 10:00 AM EDT Office Visit [facility] [address], [place] [phone] Edwin Kirk MD [address] [place], [place] [phone] Health Maintenance Due Date Last Done Comments [...] insulin Worsening( 5:47 PM EDT) Maximo Joseph, Vinod Procedures Procedure Name Priority Date/Time Associated [...] AM EDT Narrative 03/06/2025 3:29 PM EDT [address] [address] Magnetic Resonance Report Signed Patient: Dora Fernandez MR#: [id number] 005 : 1970 Acct:[id number] Age/Sex: 54 / F ADM Date: 03/06/25 Loc: HO.MRI Attending Dr: Marlene Tiwari MD Ordering Physician: Marlene Tiwari MD Date of Service: 03/06/25 Procedure(s): MR foot RT wo/w con Accession Number(s): [id number] cc: Franklin Edwards MD; Marlene Tiwari MD; [...] 03/06/25 1527 DD/ 0830 TD/TT: 03/06/25 0911 Biazzi Nitrator Operator: Procedure Note Donotuseinterpreter, Image - 03/06/[address] [address] Magnetic Resonance Report Signed Patient: Dora FernandezMR#: [id number] 005 : 1970Acct:[id number] Age/Sex: 54 / FADM Date: 03/06/25 Loc: HO.MRI Attending Dr: Marlene Tiwari MD Ordering Physician: Marlene Tiwari MD Date of Service: 03/06/25 Procedure(s): MR foot RT wo/w con Accession Number(s): [id number] cc: Franklin Edwards MD; Marlene Tiwari MD; [...] 03/06/25 1527 DD/ 0830 TD/TT: 03/06/25 0911 Biazzi Nitrator Operator: [facility] External Provider IMG MRI PROCEDURES Final Result * XR Foot 3+ Views Right (02/06/2025 11:50 AM EDT) Anatomical Region Laterality Modality Lower Extremities, Foot Right Radiogra phic Imaging 02/06/2025 11:5 0 AM EDT Narrative 02/06/2025 12:41 PM EDT [address] [address] XRay Report Signed Patient: Dora Fernandez MR#: [id number] 005 : 1970 Acct:[id number] Age/Sex: 54 / F ADM Date: 02/06/25 Loc: HO.HHCL Attending Dr: Edwin Benitez MD Ordering Physician: Edwin Benitez MD Date of Service: 02/06/25 Procedure(s): XR foot RT min 3V Accession Number(s): [id number] cc: Edwin Benitez MD EXAMINATION: XR FOOT, [...] 02/06/25 1238 DD/ 1150 TD/TT: 02/06/25 1156 Biazzi Nitrator Operator: Procedure Note Donotuseinterpreter, Image - 02/06/2025 [facility] [address] [place] [address] XRay Report Signed Patient: Dora FernandezMR#: [id number] 005 : 1970Acct:[id number] Age/Sex: 54 / FADM Date: 02/06/25 Loc: HO.HHCL Attending Dr: Edwin Benitez MD Ordering Physician: Edwin Benitez MD Date of Service: 02/06/25 Procedure(s): XR foot RT min 3V Accession Number(s): [id number] cc: Edwin Benitez MD EXAMINATION: XR FOOT, [...] 02/06/25 1238 DD/ 1150 TD/TT: 02/06/25 1156 Biazzi Nitrator Operator: us Edwin Zuleta MD IMG XR PROCEDURES Fin al Result * Calcitonin (02/06/2025 11:23 AM EDT) Calcitonin (Thyrocalcitonin) <2 <=5 pg/mL [facility] Comment:This test was perfor med using the SiemensChemiluminescent method. Values obtained withdifferent assay methods cannot be used interchangeably.Calcitonin levels, regardless of value, should not beinterpreted as absolute evidence of the presence orabsence of the disease.THIS TEST WAS PERFORMED AT:[id number] [place] [address]CAURCFXALEXANDER CUETO MD,PHD 02/06/2025 11:2 3 AM EDT 02/06/2025 12:56 PM EDT us Generic External Data Provider LAB BLOOD ORDERAB LES Final Result [facility] [address] [place] [address] [phone] * (ABNORMAL) CBC auto differential (02/06/2025 11:13 AM EDT) White Blood Count 6.6 4.8 - 10.8 X10*3/uL [facility] Red Blood Count 4.26 4.20 - 5.50 X10*6/uL [facility] Hemoglobin 11.6(L) 12.0 - 16.0 g/dl [facility] Hematocrit 35.6(L) 37.0 - 47.0 % [facility] Mean Corpuscular Volume 83.6 80.0 - 98.0 fL [facility] Mean Corpuscular Hemoglobin 27.2 27.0 - 33.0 pg [facility] Mean Corpuscular HGB Conc 32.6 31.0 - 35.0 g/dl [facility] Red Cell Distribution Width 13.1 11.0 - 16.0 % [facility] Platelet Count 265 160 - 400 X10*3/uL [facility] Mean Platelet Volume 11.7 9.4 - 12.3 fL [facility] Neutrophils Percent Auto 55.6 45 - 73 % [facility] Imm Gran Pct Auto 0.6(H) 0.0 - 0.4 % [facility] Lymphocytes Percent Auto 26.4 20 - 40 % [facility] Monocytes Percent Auto 8.6 2 - 11 % [facility] Eosinophils Percent Auto 8.0(H) 0 - 4 % [facility] Basophils Percent Auto 0.8 0 - 2 % [facility] NRBC Pct Auto 0.0 0.0 - 0.2 /100WBC [facility] Neutrophils Absolute Auto 3.7 2.0 - 8.3 x10*3/uL [facility] Imm Gran Abs Auto 0.04(H) 0.00 - 0.03 X10*3/uL [facility] Lymphocytes Absolute Auto 1.7 1.2 - 4.9 X10*3/uL [facility] Monocytes Absolute Auto 0.6 0.1 - 1.2 X10*3/uL [facility] Eosinophils Absolute Auto 0.5(H) 0.0 - 0.4 X10*3/uL [facility] Basophils Absolute Auto 0.1 0.0 - 0.2 X10*3/uL [facility] NRBC Abs Auto 0.000 0.0 - 0.012 X10*3/uL [facility] 02/06/2025 11:1 3 AM EDT 02/06/2025 12:56 PM EDT us Generic External Data Provider LAB BLOOD ORDERAB LES Final Result Performing Organization Address [facility]/ZIP Co de Phone Number [facility] [address] [place] [phone] * (ABNORMAL) Sed Rate by Modified Andry (02/06/2025 11:13 AM EDT) Erythrocyte Sedimentation Rate 21(H) 0 - 20 MM/HR [facility] Comment:Patients with polycy themia and many hemoglobin abnormalitiesmay have depressed sed rates whereas patients with anemiamay have elevated sed rates. 02/06/2025 11:1 3 AM EDT 02/06/2025 12:56 PM EDT us Generic External Data Provider LAB BLOOD ORDERAB LES Final Result Performing Organization Address [facility]/ZIP Co de Phone Number [facility] [address] [place] [phone] * (ABNORMAL) C-reactive Protein (02/06/2025 11:13 AM EDT) C Reactive Protein 2.66(H) < or = 0.50 mg/dL [facility] 02/06/2025 11:1 3 AM EDT 02/06/2025 12:56 PM EDT Generic External Data Provider LAB BLOOD ORDERAB LES Final Result [facility] [address] [place] [phone] * (ABNORMAL) Hemoglobin A1c (02/06/2025 11:13 AM EDT) Hemoglobin A1c 7.2(H) <6.0 % [facility] Comment:Hemoglobin A1C Refer ence Range Adults: 4.8 - 6.0 % Non diabetic: < 6.0 % Goal: < 7.0 %Additional Action Suggested: > 8.0 %Note: Hemoglobin A1c results are invalid for patients with abnormal amounts of HbF. Blood transfusions may impact the HbA1c concentration in the patient sample. Estimated Average Glucose 160 mg/dL [facility] Comment:eAG = Estimated ave rage glucose which is %A1C expressed asaverage glucose, using the formula of the C8E-ScrpyvyCqmlpro Glucose study (ADAG), Diabetes Care, Vol.31,#8,Jan. 2007 02/06/2025 11:1 3 AM EDT 02/06/2025 12:56 PM EDT Generic External Data Provider LAB BLOOD ORDERAB LES Final Result Performing Organization Address City/[facility]/ZIP Co de Phone Number [facility] [address] [place] [phone] [phone] * Albumin, Random Urine W/Creatinine (01/27/2025 9:31 AM EDT) Creatinine, Urine 168.19 mg/dL [facility] Microalbumin Urine 17.0 mg/L [facility] Microalbum Creatinine Ratio Ur 10.1 <30 ug/mg cr [facility] Comment:Albumin/Creatinine R atio Reference Ranges: Normal: < 30 ug/mg creatinine Microalbuminuria: 30 - 300 ug/mg creatinineClinical Albuminuria: > 300 ug/mg creatinine Urine (Urine, Random) 01/27/2025 9:31 AM EDT 01/27/2025 11:14 AM EDT us Edwin Zuleta MD LAB URINE ORDERABLES Final Result [facility] [address] [place] [phone] * Lipid Panel, Standard (01/27/2025 9:31 AM EDT) Triglycerides 64 <150 mg/dL [facility] Comment:Desirable Triglyceri de: less than 150 mg/dLBorderline High Triglyceride 150-199 mg/dLHigh Triglyceride: 200-499 mg/dLVery High Triglyceride: greater than or equal to 5OO mg/dL Cholesterol 134 <200 mg/dL [facility] Comment:Desirable Cholestero l: less than 200 mg/dLBorderline High Cholesterol: 200-239 mg/dLHigh Cholesterol: greater than 239 mg/dL LDL Cholesterol Calculated 61 <100 mg/dL [facility] Comment:Desirable LDL: less than 100 mg/dLNear Optimal/Above Optimal LDL: 110- 129 mg/dLBorderline High LDL: 130-159 mg/dLHigh LDL: 160-189 mg/dLVery High LDL: greater than or equal to 190 mg/dL HDL Cholesterol 61 >40 mg/dL [facility] Comment:Desirable HDL: great er than 40 mg/dL Note: This HDL assay may give artificially low results in patients with liver disease. Blood Venous blood specimen / Unknown 01/27/2025 9:31 AM EDT 01/27/2025 11:22 AM EDT Edwin Zuleta MD LAB BLOOD ORDERABLES Final Result [facility] [address] [place] [phone] [phone] * (ABNORMAL) Comprehensive Metabolic Panel (01/27/2025 9:31 AM EDT) Sodium 142 135 - 145 mmol/L [facility] Potassium 4.5 3.3 - 5.1 mmol/L [facility] Chloride 102 96 - 108 mmol/L [facility] Carbon Dioxide 31(H) 22 - 29 mmol/L [facility] Anion Gap 14 12 - 20 [facility] Urea Nitrogen (BUN) 28(H) 9 - 16 mg/dL [facility] Creatinine, Serum 1.35 0.5 - 1.4 mg/dL [facility] Estimated Glomerular Filt Rate 41 [facility] Comment:Chronic Kidney Disea se: Estimated GFR < 60 mL/min/[id number] Kidney Disease: Estimated GFR < 15 mL/min/1.73m2 Glucose 108 60 - 115 mg/dL [facility] Calcium 9.3 8.4 - 10.2 mg/dL [facility] Bilirubin, Total 0.3 0.0 - 1.0 mg/dL [facility] Aspartate Amino Transferase 27 5 - 31 U/L [facility] Alanine Aminotransferase 17 0 - 31 U/L [facility] Total Protein 8.1(H) 6.5 - 8.0 g/dL [facility] Albumin Level 4.3 3.5 - 5.0 g/dL [facility] Alkaline Phosphatase 103 39 - 117 U/L [facility] Blood Venous blood specimen / Unknown 01/27/2025 9:31 AM EDT 01/27/2025 11:22 AM EDT us Edwin Zuleta MD LAB BLOOD ORDERABLES Final Result Performing Organization Address [facility]/ZIP Co de Phone Number [facility] [address] [place] [address] [phone] * (ABNORMAL) POCT HGB A1C (01/09/2025 12:05 PM EDT) Hemoglobin A1C 7.2(A) 4.0 - 5.7 % QC Media Lot # [id number] Lot# Expiration Date [id number] Blood 01/09/2025 12:0 5 PM EDT Edwin Zuleta MD POINT OF CARE TEST EN TER/EDIT ORDERABLES Final Result * POCT Glucose (01/09/2025 12:03 PM EDT) Glucose Blood, POC 136 60 - 200 mg/dL QC Media Lot # [id number] Lot# Expiration Date [id number] Blood Capillary blood specimen / Unknown 01/09/2025 12:03 PM EDT Edwin Zuleta MD POINT OF CARE TEST EN TER/EDIT ORDERABLES Final Result * BI Mammogram Screening Tomosynthesis Bilateral (09/04/2023 11:35 AM EDT) Anatomical Region Laterality Modality Breast Bilateral Mammography 09/04/2023 11:3 5 AM EDT Narrative 09/26/2023 10:57 PM EDT [facility] [address] [place] [address] Mammography Report Signed Patient: Dora Fernandez MR#: [id number] 005 : 1970 Acct:[id number] Age/Sex: 53 / F ADM Date: 09/04/23 Loc: HO.MAMMO Attending Dr: Edwin Benitez MD Ordering Physician: Edwin Benitez MD Resu lts: 1Negative Date of Service: 09/04/23 Follow Up: 1 Year From Orig inal Mammogram Procedure(s): MM tomosynthesis screening BI Accession Number(s): [id number] cc: Edwin Benitez MD EXAMINATION: MM SCREENING [...] in OV> 09/26/23 2253 DD/ 1135 TD/TT: Biazzi Nitrator Operator: Procedure Note Donotuseinterpreter, Image - 09/26/2023 Alicia [facility] [address] [place] [address] Mammography Report Signed Patient: Vick Fernandez#: [id number] 005 : 1970Acct:[id number] Age/Sex: 53 / FADM Date: 09/04/23 Loc: GEMINI Attending Dr: Edwin Benitez MD Ordering Physician: Edwin Benitez MDResu lts: 1Negative Date of Service: 09/04/23Follow Up: 1 Year From Orig inal Mammogram Procedure(s): MM tomosynthesis screening BI Accession Number(s): [id number] cc: Edwin Benitez MD EXAMINATION: MM SCREENING DIGITAL BREAST TOMOSYNTHESIS, BILATERAL CLINICAL INFORMATION: Screening. Asymptomatic. COMPARISON: Mammography: This study is compared with prior exams dating back to 2018. TECHNIQUE: Digital breast tomosynthesis is performed in [...] date for their next mammogram. Dictated By: Ceeclia Sol MD Signed By: <Electronically signed by Cecelia Sol MD in OV> 09/26/23 7643 DD/ 1135 TD/TT: Biazzi Nitrator Operator: Edwin Zuleta MD IMG BI PROCEDURES Fin al Result * HEPATITIS C AB W/REFL TO HCV RNA, QN, PCR (02/25/2022 9:25 AM EDT) HEPATITIS C ANTIBODY NON-REACT REMI NON-REACT REMI [facility] INDEX 0.08 <1.00 [facility] Comment: HCV antibody was non-reactive. There is no laboratory evidence of HCV infection. In most cases, no further action is required. However, if recent HCV exposure is suspected, a test for HCV RNA (test code 52879) is suggested. For additional information please refer to http://education.enavu.Triptease/faq/KOK43y6 (This link is being provided for informational/ educational purposes only.) 02/25/2022 9:25 AM EDT Edwin Zuleta MD HISTORICAL/NON ORDERA BLE LABS Final Result [facility] [address] * Hm Colonoscopy (12/25/2018 7:41 AM EDT) us Historical Provider HEALTH MAINTENANCE Final Result from Last 3 Months or Most Recently Relevant to Health Maintenance Insurance [facility] CARE < 65 ALYSA CHAN [id number] Care Teams Plumbing Mechanic Relationship Specialty Start Date End Date Edwin Kirk MD [address] [place] [address] PCP - General Internal Medicine 03/31/14 Isa Curry PharmD [address] [place] [address] Pharmacist Internal Medicine 09/05/24
--- OUTSIDE RECORDS SUMMARY | 2025-03-19 15:48 | XMS_ITS | Encounter Summary ---
Author Organization [employer] Address [address] [facility] 7[address] [place] [address] Care Team Providers Care Port Crane Operator Name Role Phone Edwin Kirk MD Primary Care Provide r Isa Curry PharmD Unavailable [phone] Reason for Visit * Reason Comments Med Refill Encounter Details Date Type Department Care Team ([facility] st Contact Info) Description 05/17/[address] [facility] [address] [place] [address] Edwin Kirk MD [address] [place] [address] Type 2 diabetes mellitus with diabetic neuropathic arthropathy, with long-term current use of insulin ([facility]) Social History Tobacco Use Types Packs/Day [...] AM EDT Medication Management [facility] [address] [place] [phone] Isa Curry PharmD [address] [place] [phone] 03/27/2025 10:00 AM EDT Office Visit [facility] [address] [place] [phone] Edwin Kirk MD [address] [place] [address] documented as of this encounter Goals Goal [...] arthropathy, with long-term current use of insulin (HCC) documented in this encounter Additional Health Concerns Assessment Noted Time PHQ-9 Depression Total Score: 12 024 11:58 AM EDT documented as of this encounter Care Teams Port Crane Operator Relationship Specialty Start Date End Date Edwin Kirk MD [address] [place] [address] PCP - General Internal Medicine 03/31/14 Isa Curry PharmD [address] [place] [address] Pharmacist Internal Medicine 09/05/24 [employer] 06/27/24 01/23/25 documented as of this encounter
--- OUTSIDE RECORDS SUMMARY | 2025-03-19 15:48 | XMS_ITS | Encounter Summary ---
Author Organization [employer] Address 75 [facility] 7t [place] [address] Care Team Providers Care Reception Interviewer Name Role Phone Edwin iKrk MD Primary Care Provide r Isa Curry PharmD Unavailable [phone] Encounter Details Date Type Department Care Team ([facility] st Contact Info) Description 10/12/2023 Orders Only [facility] [address] [place] [address] ProviderChasity MD Social History Tobacco Use Types [...] EDT Medication Management [facility] [address] [place] [address] Isa Curry PharmD [address] [place] [address] 03/27/2025 10:00 AM EDT Office Visit [facility] [address] [place] [address] [phone] Edwin Kirk MD [address] [place] [address] [phone] documented as of this encounter Procedures Procedure Name Priority Date/Time Associated Diagnosis Comments HM COLONOSCOPY Routine 12/25/2018 7:41 AM EDT documented in this encounter Results * Hm Colonoscopy (12/25/2018 7:41 AM EDT) Historical Provider HEALTH MAINTENANCE Final Result documented in this encounter Visit Diagnoses Not on filedocumented in this encounter Care Teams Reception Interviewer Relationship Specialty Start Date End Date Edwin Kirk MD [address] [place] [address] [phone] PCP - General Internal Medicine 03/31/14 Isa Curry PharmD [address] [place] [address] [phone] Pharmacist Internal Medicine 09/05/24 [employer] 06/27/24 01/23/25 documented as of this encounter
--- OUTSIDE RECORDS SUMMARY | 2025-03-19 15:48 | XMS_ITS | Encounter Summary ---
Author Organization [employer] [facility] Address 75 [facility] 7 [place] [address] Care Team Providers Care Networking Technology Instructor Name Role Phone Edwin Kirk MD Primary Care Provide r Isa Curry PharmD Unavailable [phone] Encounter Details Date Type Department Care Team (Late st Contact Info) Description 10/27/2022 Abstract [facility] [address] [place] [address] 90234 Edwin Kirk MD 230 [place], [place] [phone] Social History Tobacco Use Types Packs/Day Years [...] Description 03/20/2025 9:30 AM EDT Medication Management [facility] 230 [place] [address] Isa Curry, PharmD [address] [place], [place] [phone] 03/27/2025 10:00 AM EDT Office Visit [facility] 230 [place], [place] [phone] Edwin Kirk MD [address] [place], [place] [phone] documented as of this encounter Visit Diagnoses Not on filedocumented in this encounter Care Teams Networking Technology Instructor Relationship Specialty Start Date End Date Edwin Kirk MD [address] [place] [address] [phone] PCP - General Internal Medicine 03/31/14 Isa Curry, Vinod [address] [place] [address] [phone] Pharmacist Internal Medicine 09/05/24 [employer] 06/27/24 01/23/25 documented as of this encounter
--- OUTSIDE RECORDS SUMMARY | 2025-03-19 15:48 | XMS_ITS | Clinical Summary ---
Author Organization [facility] Address 10 [facility] MENG [address] [place] [address] Phone Care Team Providers Care Medical Oncologist Name Role Phone Edwin Castañeda MD Primary [...] day). Today pt's daughter tells me the Biomedical Field Service Engineer Dr Mckeon cancelled the appointment. EKG today [...] % PVNMA 06/23/2020 us [facility] Conversion LAB [id number] LICITED RESULTS Final Result PVNMA from Last 3 Months or Most Recently Relevant to Health Maintenance Insurance MCR ([id number]) MCR ([id number]) Care Teams Medical Oncologist Relationship Specialty Start Date End Date Edwin Castañeda MD PCP - General 06/29/20
--- OUTSIDE RECORDS SUMMARY | 2025-03-19 15:48 | XMS_ITS | Encounter Summary ---
Author Organization [employer] Address 75 [facility] 7t [place] [address] Care Team Providers Care Photographic Process Worker Name Role Phone Edwin Kirk MD Primary Care Provide r Isa Curry PharmD Unavailable [phone] Reason for Visit * Reason Comments Med Refill Encounter Details Date Type Department Care Team ([facility] st Contact Info) Description 12/26/2023 Refill [facility] 230 [place] [address] Edwin Kirk MD 230 [place], [place] [phone] Diabetic polyneuropathy associated with type 2 diabetes [...] Description 03/20/2025 9:30 AM EDT Medication Management [facility]INE [address] [place] [address] Isa Curry PharmD [address] [place] [address] 75[address] 03/27/2025 10:00 AM EDT Office Visit [facility] [address] [place] [address] Edwin Kirk MD [address] [place] [address] 94567 documented as of this encounter Visit Diagnoses Diagnosis Diabetic polyneuropathy associated with type 2 diabetes mellitus (HCC) Low vitamin D level documented in this encounter Care Teams Photographic Process Worker Relationship Specialty Start Date End Date Edwin Kirk MD [address] [place] [address] 15907 PCP - General Internal Medicine 03/31/14 Isa Curry PharmD [address] [place] [address] 56616 Pharmacist Internal Medicine 09/05/24 [employer] 06/27/24 01/23/25 documented as of this encounter
--- OUTSIDE RECORDS SUMMARY | 2025-03-19 15:48 | XMS_ITS | Encounter Summary ---
Author Organization [employer] Address 75 [facility] 7t [place] [address] Care Team Providers Care Rigging And Controls Aircraft Mechanic Name Role Phone Edwin Kirk MD Primary Care Provide r Isa Curry PharmD Unavailable [phone] Reason for Visit * Reason Onset Date Comments Hospital Follow-up 06/26/2024 Encounter Details Date Type Department Care Team ([facility] st Contact Info) Description 06/26/2024 Telephone [facility] 230 [place] [address] Edwin Kirk MD 230 [place], [place] [phone] Hospital Follow-up Social History Tobacco Use Types [...] from pt requesting a HDF appt. Hospital: [facility] Date of admission: 06/24/24 Discharge date: 06/26/24 Diagnosed: Foot infection *Send message to [place] Clinical Care Coordinators documented in this encounter Plan of Treatment Upcoming Encounters Date Type Department Care Team (Late st Contact Info) Description 03/20/2025 9:30 AM EDT Medication Management [facility] [address] [place] [address] Isa Curry, Vinod 230 [place] [address] 03/27/2025 10:00 AM EDT Office Visit [facility] [address] [place] [address] 10268 Edwin Kirk MD 230 [place] [address] documented as of this encounter Goals Goal [...] documented as of this encounter Care Teams Rigging And Controls Aircraft Mechanic Relationship Specialty Start Date End Date Edwin Kirk MD 230 [place] [address] PCP - General Internal Medicine 03/31/14 Isa Curry, Vinod 230 [place] [address] Pharmacist Internal Medicine 09/05/24 [employer] 06/27/24 01/23/25 documented as of this encounter
--- OUTSIDE RECORDS SUMMARY | 2025-03-19 15:48 | XMS_ITS | Encounter Summary ---
Author Organization [employer] Address 75 [facility] 7 [place] [address] Care Team Providers Care Logging Tractor Operator Name Role Phone Edwin Kirk MD Primary Care Provide r Isa Curry PharmD Unavailable Reason for Visit * Reason Comments Med Refill Encounter Details Date Type Department Care Team ([facility] st Contact Info) Description 12/26/2023 Refill [facility]INE 230 [place] [address] Annmarie Brewster MD 230 [place] [address] Heartburn Social History Tobacco Use Types Packs/Day [...] Description 03/20/2025 9:30 AM EDT Medication Management [facility] [address] [place] [address] 88661 Isa Curry PharmD [address] [place] [phone] 03/27/2025 10:00 AM EDT Office Visit [facility] [address] [place] [address] 62525 Edwin Kirk MD [address] [place] [address] 80136 documented as of this encounter Visit Diagnoses Diagnosis Heartburn documented in this encounter Care Teams Logging Tractor Operator Relationship Specialty Start Date End Date Edwin Kirk MD [address] [place] [address] [phone] PCP - General Internal Medicine 03/31/14 Isa Curry PharmD [address] [place] [address] 24474 Pharmacist Internal Medicine 09/05/24 [employer] 06/27/24 01/23/25 documented as of this encounter
--- OUTSIDE RECORDS SUMMARY | 2025-03-19 15:48 | XMS_ITS | Encounter Summary ---
Author Organization [employer] Address 75 [facility] 7t [place] [address] Care Team Providers Care Ship Engineer Name Role Phone Edwin Kirk MD Primary Care Provide r Isa Curry PharmD Unavailable [phone] Encounter Details Date Type Department Care Team ([facility] Contact Info) Description 12/12/2024 Telephone [facility]INE 230 [place] [address] Edwin Kirk MD 230 [place], [place] [phone] Social History Tobacco Use Types Packs/Day Years [...] 03/20/2025 9:30 AM EDT Medication Management [facility] [address] [place] [address] 346[address] Isa Curry, PharmD [address] [place] [address] 111[address] 03/27/2025 10:00 AM EDT Office Visit [facility] [address] [place] [address] 79865 Edwin Kirk MD 230 [place] [address] documented as of this encounter Goals Goal [...] documented as of this encounter Care Teams Ship Engineer Relationship Specialty Start Date End Date Edwin Kirk MD 230 [place], [place] [phone] PCP - General Internal Medicine 03/31/14 Isa Curry PharmD 230 [place] [address] Pharmacist Internal Medicine 09/05/24 [employer] 06/27/24 01/23/25 documented as of this encounter
--- OUTSIDE RECORDS SUMMARY | 2025-03-19 15:48 | XMS_ITS | Encounter Summary ---
Author Organization [facility] Address [address] [place] [address] 7 [place] [address] Care Team Providers Care Proof Machine Operator Name Role Phone Edwin Kirk MD Primary Care Provide r Isa Curry PharmD Unavailable [phone] Encounter Details Date Type Department Care Team (Late st Contact Info) Description 11/23/2022 [facility] Health Information Management 230 [place] [address] Edwin Kirk MD 230 [place], [place] [phone] Social History Tobacco Use Types Packs/Day Years [...] 9:30 AM EDT Medication Management [facility]INE 230 [place] [address] Isa Curry, PharmD 230 [place] [address] 03/27/2025 10:00 AM EDT Office Visit [facility] MED[facility]INE 230 [place], [place] [phone] Edwin Kirk MD 230 [place], [place] [phone] documented as of this encounter Visit Diagnoses Not on filedocumented in this encounter Care Teams Proof Machine Operator Relationship Specialty Start Date End Date Edwin Kirk MD [address] [place] [address] [phone] PCP - General Internal Medicine 03/31/14 Isa Curry PharmD [address] [place] [address] [phone] Pharmacist Internal Medicine 09/05/24 [employer] 06/27/24 01/23/25 documented as of this encounter
--- OUTSIDE RECORDS SUMMARY | 2025-03-19 15:48 | XMS_ITS | Encounter Summary ---
Author Organization [employer] Address 75 [facility] 7t [place] [address] Care Team Providers Care Ebay Reseller Name Role Phone Edwin Kirk MD Primary Care Provide r Isa Curry PharmD Unavailable [phone] Encounter Details Date Type Department Care Team ([facility] st Contact Info) Description 03/14/2025 Refill [facility] 230 [place] [address] Edwin Kirk MD 230 [place] [address] Diabetic polyneuropathy associated with type 2 diabetes [...] your housing situation today? I have shahla lupe 10/16/[address] you li [...] Description 03/20/2025 9:30 AM EDT Medication Management [facility] [address] [place] [address] 54616 Isa Curry PharmD [address] [place] [address] 03/27/2025 10:00 AM EDT Office Visit [facility] [address] [place] [address] 90208 Edwin Kirk MD 230 [place] [address] documented as of this encounter Goals Goal [...] documented as of this encounter Care Teams Ebay Reseller Relationship Specialty Start Date End Date Edwin Kirk MD 230 [place] [address] PCP - General Internal Medicine 03/31/14 Isa Curry PharmD 230 [place] [address] Pharmacist Internal Medicine 09/05/24 documented as of this encounter
== END 2025-03-19 14:38 | disposition home or self-care (01) ==
LOC: HO.MAMMO 14:37
PROVIDERS: PCP Internal Medicine; Visit Provider Internal Medicine
DX: Z12.31 Encounter for screening mammogram for malignant neoplasm of breast (principal)
CPT/HCPCS: 77063; 77067

== ENCOUNTER → 2025-03-19 14:39 | Outpatient (BNV) | payer OTHER, SELFPAY | PROVIDERS: PCP Internal Medicine; Visit Provider Internal Medicine | DX: Z12.31 Encounter for screening mammogram for malignant neoplasm of breast (principal) | CPT/HCPCS: 77063; 77067 ==

== ENCOUNTER 2025-04-01 06:16 | Day surgery (SDC) | payer OTHER, SELFPAY ==
--- OUTSIDE RECORDS SUMMARY | 2024-11-05 10:30 | XMS_ITS ---
Author Organization [facility] Address [address] [place] [phone] Care Team Providers Care Radiotelegraphist Name Role Phone Garry Zuleta MD, Edwin Primary Care Provide r Cristofer Owusu Unavailable [phone] Encounters Encounter Location Date Provider Diagnosis [address] [address] 11/05/2024 Cristofer Hilario Plan Of Treatment Next Appt Details Provider Name:Cristofer Hilario , 05/13/2025 01:45:00 PM, [address] [place] [address], [phone], Progress Notes * Dora FERNANDEZDOB:[birth year] (55 yo F)Acc No.[id number]:11/05/2024 Progress Note Patient: Tyler Dora MSOES Provider: Emily Hilario DPM :1970 A ge:54 Y S ex:Female Date:11/05/2024 Address:[address] [place] [address] [place], [id number] Pcp:Edwin Zuleta MD Subjective: * Chief Complaints: [...] 0 11/05/2024 Generated for Joseph Rockwell on: 02:59 PM EDT
--- OUTSIDE RECORDS SUMMARY | 2025-03-20 14:59 | XMS_ITS | Encounter Summary ---
Author Organization [employer] Address 75 [facility] 7t [place] [address] Care Team Providers Care Gynecological Assistant Name Role Phone Edwin Kirk MD Primary Care Provide r Isa Curry PharmD Unavailable [phone] Encounter Details Date Type Department Care Team (Latest Contact Info) Description 03/20/2025 Travel Social History Tobacco Use Types Packs/Day [...] Care Team (Late st Contact Info) Description 03/27/2025 10:00 AM EDT Office Visit [facility] MED[facility]INE [address] [place] [address] 12865 Edwin Kirk MD [address] [place] [address] 04/24/2025 10:00 AM EST Medication Management [facility] [address] [place] [address] 63726 Isa Curry PharmD [address] [place] [address] 88510 documented as of this encounter Goals Goal [...] documented as of this encounter Care Teams Gynecological Assistant Relationship Specialty Start Date End Date Edwin Kirk MD [address] [place] [address] 01858 PCP - General Internal Medicine 03/31/14 CurryIsa PharmD [address] [place] [address] 04626 Pharmacist Internal Medicine 09/05/24 documented as of this encounter
--- OUTSIDE RECORDS SUMMARY | 2025-03-20 14:59 | XMS_ITS | Encounter Summary ---
Author Organization [employer] Address 75 [facility] 7t [place] [address] Care Team Providers Care Casino Floor Supervisor Name Role Phone Edwin Kirk MD Primary Care Provide r Isa Curry PharmD Unavailable [phone] Encounter Details Date Type Department Care Team ([facility] st Contact Info) Description 10/12/2023 Orders Only [facility] 230 [place] [address] ProviderChasiyt MD Social History Tobacco Use Types Packs/Day [...] Description 03/27/2025 10:00 AM EDT Office Visit [facility] [address] [place] [address] Edwin Kirk MD [address] [place] [address] 00780 04/24/2025 10:00 AM EST Medication Management [facility] [address] [place] [address] [phone] Isa Curry PharmD [address] [place] [address] [phone] documented as of this encounter Procedures Procedure Name Priority Date/Time Associated Diagnosis Comments COLONOSCOPY Routine 12/25/2018 7:41 AM EDT documented in this encounter Results * Hm Colonoscopy (12/25/2018 7:41 AM EDT) Historical Provider HEALTH MAINTENANCE Final Result documented in this encounter Visit Diagnoses Not on filedocumented in this encounter Care Teams Casino Floor Supervisor Relationship Specialty Start Date End Date Edwin Kirk MD [address] [place] [address] 96759 PCP - General Internal Medicine 03/31/14 Isa Curry PharmD [address] [place] [address] [phone] Pharmacist Internal Medicine 09/05/24 [employer] 06/27/24 01/23/25 documented as of this encounter
--- OUTSIDE RECORDS SUMMARY | 2025-03-20 14:59 | XMS_ITS | Encounter Summary ---
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) Procedures MR Foot w/ and w/o Contrast Right Franklin Edwards MD [address] [place] [address] Phone: tel: fax: [address] Phone: tel: fax: Referral ID Status Reason Start Date Expiration Date V isits Requested Visits Authorized [id number] Canceled 02/06/2025 02/06/2026 1 1 Encounter Details Date Type Department Care Team (Late st Contact Info) Description 02/06/2025 Orders Only [facility] [address] [place], [place] [phone] Franklin Edwards MD [address] [place], [place] [phone] Ulcer of right foot with necrosis of [...] Upcoming Encounters Date Type Department Care Team ([facility] st Contact Info) Description 03/27/2025 10:00 AM EDT Office Visit [facility]INE 230 [place] [address] Edwin Kirk MD 230 [place] [address] 04/24/2025 10:00 AM EST Medication Management [facility] 230 [place] [address] Isa Curry, GurmeetD 230 [place] [address] Scheduled Orders Name Type Priority Associated Diagnoses [...] Brito PharmD documented as of this encounter Procedures Procedure Name Priority Date/Time Associated Diagnosis Comments CALCITONIN Routine 02/06/2025 11:23 AM EDT 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) documented in this encounter Results * Calcitonin (02/06/2025 11:23 AM EDT) Calcitonin (Thyrocalcitonin) <2 <=5 pg/mL [facility] Comment:This test was perfor med using the SiemensChemiluminescent method. 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
--- OUTSIDE RECORDS SUMMARY | 2025-03-20 14:59 | XMS_ITS | Encounter Summary ---
Author Organization [employer] Address 75 [facility] 7 [place] [address] Care Team Providers Care Director Of Content Marketing Name Role Phone Edwin Kirk MD Primary Care Provide r Isa Curry PharmD Unavailable [phone] Reason for Visit * Reason Comments Med Refill Encounter Details Date Type Department Care Team ([facility] st Contact Info) Description 12/26/2023 Refill [facility] MEDICINE 230 [place] [address] Annmarie Brewster MD 230 [place] [address] Heartburn Social History Tobacco Use Types Packs/Day [...] Description 03/27/2025 10:00 AM EDT Office Visit [facility] MED[facility]INE [address] [place] [address] 27[address] Edwin Kirk MD [address] [place] [address] 359[address] 04/24/2025 10:00 AM EST Medication Management [facility] [address] [place] [address] 20104 Isa Curry PharmD [address] [place] [address]290 documented as of this encounter Visit Diagnoses Diagnosis Heartburn documented in this encounter Care Teams Director Of Content Marketing Relationship Specialty Start Date End Date Edwin Kirk MD [address] [place] [address] 26660 PCP - General Internal Medicine 03/31/14 Isa Curry PharmD [address] [place] [address] [phone] Pharmacist Internal Medicine 09/05/24 [employer] 06/27/24 01/23/25 documented as of this encounter
--- OUTSIDE RECORDS SUMMARY | 2025-03-20 14:59 | XMS_ITS | Clinical Summary ---
Author Organization [facility] Address 10 [facility] MENG [address] [place] [address] Phone Care Team Providers Care Product Design Manager Name Role Phone Edwin Castañeda MD Primary [...] day). Today pt's daughter tells me the High Risk Case Manager Dr Mckeon cancelled the appointment. EKG today [...] % PVNMA 06/23/2020 us Rtama Conversion LAB [id number] LICITED RESULTS Final Result PVNMA from Last 3 Months or Most Recently Relevant to Health Maintenance Insurance MCR ([id number]) MCR ([id number]) Care Teams Product Design Manager Relationship Specialty Start Date End Date Edwin Castañeda MD PCP - General 06/29/20
--- OUTSIDE RECORDS SUMMARY | 2025-03-20 14:59 | XMS_ITS | Encounter Summary ---
Author Organization [employer] Address 75 [facility] 7t [place] [address] Care Team Providers Care Search Marketing Specialist Name Role Phone Edwin Kirk MD Primary Care Provide r Isa Curry PharmD Unavailable [phone] Reason for Visit * Reason Comments Med Refill Encounter Details Date Type Department Care Team ([facility] st Contact Info) Description 12/26/2023 Refill [facility] MED[facility]INE 230 [place] [address] Edwin Kirk MD 230 [place], [place] [phone] Diabetic polyneuropathy associated with type 2 diabetes [...] Description 03/27/2025 10:00 AM EDT Office Visit [facility] MEDICINE [address] [place] [address] Edwin Kirk MD [address] [place] [address] 80[address] 04/24/2025 10:00 AM EST Medication Management [facility] MEDICINE [address] [place] [address] 9[address] Isa Curry PharmD [address] [place] [address] 14997 documented as of this encounter Visit Diagnoses Diagnosis Diabetic polyneuropathy associated with type 2 diabetes mellitus (HCC) Low vitamin D level documented in this encounter Care Teams Search Marketing Specialist Relationship Specialty Start Date End Date Edwin Kirk MD [address] [place] [address] 07844 PCP - General Internal Medicine 03/31/14 Isa Curry PharmD [address] [place] [address] 45585 Pharmacist Internal Medicine 09/05/24 [employer] 06/27/24 01/23/25 documented as of this encounter
--- OUTSIDE RECORDS SUMMARY | 2025-03-20 14:59 | XMS_ITS | Clinical Summary ---
Author Organization [employer] Address [address] [facility] [address] [place] [address] Care Team Providers Care Employment Representative Name Role Phone Edwin Kirk MD Primary Care Provide r Isa Curry PharmD Unavailable Allergies No known active allergies Medications buPROPion XL (Wellbutrin XL) 300 MG 24 hr tablet Take 1 tablet by mouth in the morning. 023 Active escitalopram (Lexapro) 10 MG tablet Take 1.5 tablets by mouth in the morning. 023 Active nitroglycerin (Nitrostat) 0.4 MG SL tablet DISSOLVE 1 TABLET UNDER THE TONGUE EVERY 5 MINUTES NEEDED FOR CHEST PAIN. CALL 911 IF NO RELIEF 023 Active OXcarbazepine (Trileptal) 300 MG tablet Take [...] arthropathy, with long-term current use of insulin ([facility]) TAKE 1 TABLET BY MOUTH TWICE DAILY 100 each 025 Active TRUEplus Lancets 33G miscIndications: Type 2 diabetes mellitus with diabetic neuropathic arthropathy, with long-term current use of insulin ([facility]) TEST BLOOD SUGAR TWICE DAILY 100 each 025 Active FREESTYLE LITE test stripIndications :Type 2 diabetes mellitus with diabetic neuropathic arthropathy, with long-term current use of insulin ([facility]) TEST BLOOD SUGAR TWICE DAILY 100 strip 11 025 Active insulin aspart (NovoLOG FLEXPEN) 100 UNIT/ML penIndications:T ype 2 diabetes mellitus with diabetic neuropathic arthropathy, with long-term current use of insulin ([facility]) IN 0 TO 12 UNITS [...] EVERY MORNING 90 capsule 1 025 Active amoxicillin-clav ulanate (Augmentin) 875-125 MG tabletIndication s:Ulcer of right foot with necrosis of muscle ([facility]) Take 1 tablet by mouth 2 times [...] arthropathy, with long-term current use of insulin ([facility]) INJECT 40 UNITS SUBCUTANEOUSLY AT BEDTIME 4.5 mL 5 025 Active gabapentin (Neurontin) 300 MG capsuleIndicatio ns:Diabetic polyneuropathy associated with type 2 diabetes mellitus ([facility]) TAKE 1 CAPSULE BY MOUTH TWICE DAILY IN THE MORNING AND AT BEDTIME 60 capsule 025 Active Embecta Pen Needle Tonja 32G X 4 MM misc USE DIRECTED TO TEST BLOOD SUGAR FOUR TIMES DAILY 100 each 11 025 Active Tirzepatide (Mounjaro) 7.5 MG/0.5ML solution auto-injectorInd ications:Type 2 diabetes mellitus with diabetic neuropathic arthropathy, with long-term current use of insulin ([facility]) Inject 7.5 mg under the skin 1 (one) time per week. 2 mL 1 Active eszopiclone (Lunesta) 3 MG tablet Take 1 tablet by mouth if needed at bedtime. 023 2024 Discontinued(M ed list cleanup (will not trigger notification to Pharmacy)) Pentips 32G X 4 MM misc USE DIRECTED FOUR TIMES DAILY 100 each 11 024 2024 Discontinued metoprolol succinate XL (Toprol-XL) 25 MG 24 hr tabletIndication s:Benign essential hypertension TAKE 1 TABLET BY MOUTH EVERY EVENING DO NOT BREAK, CRUSH, DISSOLVE OR CHEW 30 tablet 3 025 2024 Discontinued insulin glargine (Toujeo SoloStar) 300 UNIT/ML injectionIndicat ions:Type 2 diabetes mellitus with diabetic neuropathic arthropathy, with long-term current use of insulin ([facility]) INJECT 40 UNITS SUBCUTANEOUSLY EVERY DAY AT BEDTIME 4.5 mL 1 025 2024 Discontinued gabapentin (Neurontin) 300 MG capsuleIndicatio ns:Diabetic polyneuropathy associated with type 2 diabetes mellitus ([facility]) TAKE 1 CAPSULE BY MOUTH TWICE DAILY IN THE MORNING AND AT BEDTIME 60 capsule 025 2024 Discontinued(R eorder (will not trigger notification to Pharmacy)) Tirzepatide (Mounjaro) 5 MG/0.5ML solution auto-injectorInd ications:Type 2 diabetes mellitus with diabetic neuropathic arthropathy, with long-term current use of insulin ([facility]) Inject 5 mg under the skin 1 (one) time per week. 2 mL 1 025 2024 Discontinued(D ose adjustment) Active Problems Problem Noted Date Diagnosed Date Ulcer of right foot with necrosis of muscle 06/20 Overview (07/17/2024): Admitted [facility] (06/24/2024 - 06/26/2024) for right foot [...] hours for 7 day Patient followed with [facility] general surgeons 07/08/2024 Dr. Lim recommending follow [...] & Plan (07/17/2024 9:37 AM EST): Admitted [facility] (06/24/2024 - 06/26/2024) for right foot [...] hours for 7 day Patient followed with [facility] general surgeons 07/08/2024 Dr. Lim recommending follow [...] Morbid obesity with BMI of 50.0-59.9, adult ([facility]) 01/09/2024 Assessment & Plan (10/10/2024 9:17 AM [...] EDT): Televisit Underwent extensive cardiac evaluation by Guest Services Manager nuclear stress test done on 09/02/2022 with [...] day). Today pt's daughter tells me the Guest Services Manager Dr Mckeon cancelled the appointment. EKG [...] Dental Exam: >6 months Recent hospitalization at [facility] 06/24/2024 - 06/26/2024. Saw CDTM on [...] Dental Exam: >6 months Recent hospitalization at [facility] 06/24/2024 - 06/26/2024. Saw CDTM on [...] Date Diagnosed Date Resolved Date Acute osteomyelitis (CMS/HCC) 01/10/2023 01/09/2024 Assessment & Plan (01/26/2023 10:23 [...] right foot limited to breakdown of skin ([facility]) 08/08/2022 01/09/2024 Encounters Date Type Department Care Team Description 03/20/2025 Travel 03/14/2025 Refill [facility] MED[facility] [address] [place], [place] [phone] Edwin Kirk MD 03/14/2025 Refill [facility] MED[facility] [address] [place] [address] Edwin Kirk MD Diabetic polyneuropathy associated with type 2 diabetes mellitus ([facility]) 03/07/2025 Refill [facility] MED[facility] [address] [place] [address] Isa Curry, GurmeetD Type 2 diabetes mellitus with diabetic neuropathic arthropathy, with long-term current use of insulin ([facility]) 03/06/2025 Orders Only [facility] External Provider, [facility] 03/05/2025 Refill [facility] [address] [place] [address] Luh Weston MD Benign essential hypertension 02/13/2025 Telephone [facility] [address] [place], [place] [phone] Franklin Edwards MD MRI FOOT 02/06/2025 Telephone [facility] [address] [place] [address] Tram Merritt RN Results 02/06/2025 Orders Only [facility] [address] [place], [place] [phone] Franklin Edwards MD 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) (Primary Dx) 02/06/2025 Orders Only [facility] MED[facility] [address] [facility] [place] [address] Edwin Kirk MD 02/06/2025 Travel 01/16/2025 Refill [facility] [address] [facility] [place] [address] Edwin Kirk MD Low vitamin D level 01/09/2025 11:30 AM EDT Office Visit [facility] [address] [facility] [place] [address] Edwin Kirk MD Type 2 diabetes mellitus with diabetic neuropathic arthropathy, with long-term current use of insulin (CMS/HCC) (Primary Dx); Diabetic polyneuropathy associated with type 2 diabetes mellitus (CMS/HCC); Benign essential hypertension; Heartburn; Breast cancer screening by mammogram; Preventative health care 01/09/2025 Travel 01/06/2025 Refill [facility] MED[facility] [address] [facility] [place] [address] Edwin Kirk MD Diabetic polyneuropathy associated with type 2 diabetes mellitus (CMS/HCC) from Last 3 Months Immunizations Immunization Administration Dates Next Due HepB-CpG 12/12/2024,09/05/2024 Influenza injectable quadriv alent IIV4 with preservative 02/28/2019,04/26/2016 Influenza injectable quadriv alent preservative free 04/26/2022,07/20/2021,03/13/2020,04/02,03/30/2017,07/30/2015 Influenza, IIV3, injectable 05/01/2014, 1 Influenza, Split (incl. alicia fied surface antigen) 03/22/2013,03/07/2012 Influenza, Unspecified 05/01/2014,04/22/2011 Influenza, seasonal, injecta ble, preservative free 03/20/2025,07/18/2024,11/18/2019,02/18 Pfizer Covid-19 Vaccine 12+ 03/20/2025, Pneumococcal Conjugate PCV 20 01/09/2024 Pneumococcal Polysaccharide [...] Sign Reading Time Taken Comments Blood Pressure 128/72 03/20/2025 2:21 PM EDT Pulse 72 03/20/2025 2:21 PM EDT Temperature 36.3 C (97.4 F) 01/09/2025 [...] Description 03/27/2025 10:00 AM EDT Office Visit [facility] MEDICINE [address] [place] [phone] Edwin Kirk MD [address] [place] [address] 04/24/2025 10:00 AM EST Medication Management [facility] [address] [place] [phone] Isa Curry, PharmD [address] [place] [address] Health Maintenance Due Date Last Done Comments CT Colonography 1968 FIT DNA/Cologuard 1968 FIT 1968 FOBT 1970 HIV Screening 1970 Sigmoidoscopy 1968 Disability Screening 1968 Diabetes: Foot Exam 1978 DTaP/Tdap/Td Vaccines (1 - Tdap) 04/27/2016 04/26/2016, 11/23/2005 Colonoscopy 12/26/2019 12/25/2018 Colorectal Cancer Screening 12/26/2019 Depression Monitoring 01/14/2025 07/17/2024, 025 Diabetes: Hemoglobin A1C 05/09/2025 025, 01/09/2025, 10/10/2024, Additional history exists Alcohol/Substance Use Screening 07/17/2025 07/17/2024 SDOH Screening 07/17/2025 07/17/2024 Tobacco Screening 01/09/2026 01/09/2025 Diabetes: Urine Protein Screening 01/27/2026 01/27/2025, 01/09/2024, 09/06/2022, Additional history exists Lipid Panel 01/27/2026 01/27/2025, 10/17, 02/25/2022, Additional history exists Mammogram 03/19/2026 03/19/2025, 08/17, 08/30/2021, Additional history exists Eye Exam 07/04/2026 07/04/2024, 06/19, 07/04/2024, Additional history exists RSV Patients and Patients Aged 60 years or older (1 - 1-dose 75+ series) 2043 Hepatitis C Screening Completed 02/25/2022 Pneumococcal Vaccine: 50+ Years Completed 01/09/2024, 02/23/2017, 02/22/2006 Zoster Vaccines Completed 10/10/2024, 07/18/2024 Hepatitis B Vaccines Completed 12/12/2024, 09/06/19 COVID-19 Vaccine Completed 03/20/2025, , 05/24/2021, Additional history exists Influenza Vaccine Completed 03/20/2025, , 04/26/2022, Additional history exists HIB Vaccines Aged Out No longer eligi [...] of insulin Worsening( 5:47 PM EDT) Maximo Joseph PharmD Procedures Procedure Name Priority Date/Time Associated Diagnosis Comments BI MAMMOGRAM SCREENING TOMOSYNTHESIS BILATERAL Routine 03/19/2025 2:56 PM EDT Breast cancer screening by mammogram MR FOOT W AND WO CONTRAST RIGHT [...] long-term current use of insulin ([facility]/HCC) COMPREHENSIVE METABOLIC PANEL Routine 01/27/2025 9:31 AM EDT Type 2 diabetes mellitus with diabetic neuropathic arthropathy, with long-term current use of insulin (CMS/[facility]) LIPID PANEL, STANDARD Routine 01/27/2025 9:31 AM EDT Type 2 diabetes mellitus with diabetic neuropathic arthropathy, with long-term current use of insulin (CMS/[facility]) POCT GLYCATED HEMOGLOBIN, TOTAL Routine 01/09/2025 12:05 PM EDT Type 2 diabetes mellitus with diabetic neuropathic arthropathy, with long-term current use of insulin (CMS/HCC) POCT GLUCOSE Routine 01/09/2025 12:03 PM EDT Type 2 diabetes mellitus with diabetic neuropathic arthropathy, with long-term current use of insulin (CMS/HCC) ZZZ HISTORICAL HEPATITIS C AB W/REFL TO HCV RNA, QN, PCR Routine 02/25/2022 9:25 AM EDT HM COLONOSCOPY Routine 12/25/2018 7:41 AM EDT from Last 3 Months or Most Recently Relevant to Health Maintenance Results * BI Mammogram Screening Tomosynthesis Bilateral (03/19/2025 2:56 PM EDT) Anatomical Region Laterality Modality Breast Bilateral Mammography 03/19/2025 2:56 PM EDT Narrative 03/20/2025 8:46 AM EDT [facility] [address] [place] [address] Mammography Report Signed Patient: Dora Fernandez MR#: [id number] 005 : 1970 Acct:[id number] Age/Sex: 55 / F ADM Date: 03/19/25 Loc: HO.MAMMO Attending Dr: Edwin Benitez MD Ordering Physician: Edwin Benitez MD Resu lts: 1Negative Date of Service: 03/19/25 Follow Up: 1 Year From [facility] Mammogram Procedure(s): MM tomosynthesis screening BI Accession Number(s): [id number] cc: Edwin Benitez MD Reason For Exam: screening EXAMINATION: MM SCREENING DIGITAL BREAST TOMOSYNTHESIS, BILATERAL CLINICAL INFORMATION: Screening. Asymptomatic. COMPARISON: Mammography: Comparison is made with available priors TECHNIQUE: Digital breast mammography with tomosynthesis is performed in both the craniocaudal and mediolateral oblique views along with computer-aided detection (CAD). FINDINGS: There are scattered areas of fibroglandular density. There are no significant masses, abnormal calcifications, or other abnormalities. MM/MM tomosynthesis screening BI IMPRESSION: No mammographic evidence of malignancy. ASSESSMENT: BI-RADS Category 1: Negative RECOMMENDATION: Routine annual mammography screening. 1 year F/U This examination should not preclude the clinical evaluation of a suspicious palpable abnormality. This patient's information was entered into a reminder system with a target due date for their next mammogram. Electronically signed by: Sara Lutz DO 03/20/2025 08:43 AM EDT Dictated By: Sara Lutz DO Signed By: <Electronically signed by Saar Lutz DO in OV> 03/20/25 0843 DD/ 1456 TD/TT: 03/19/25 1518 Manager Cardiology: Procedure Note Donotuseinterpreter, Image - 03/20/2025 [facility] [address] [place] [address] Mammography Report Signed Patient: Dora FernandezMR#: [id number] 005 : 1970Acct:[id number] Age/Sex: 55 / FADM Date: 03/19/25 Loc: [facility] Attending Dr: Edwin Benitez MD Ordering Physician: Edwin Benitez MDResu lts: 1Negative Date of Service: 03/19/25Follow Up: 1 Year From [facility] Mammogram Procedure(s): MM tomosynthesis screening BI Accession Number(s): [id number] cc: Edwin Benitez MD Reason For Exam: screening EXAMINATION: MM SCREENING DIGITAL BREAST TOMOSYNTHESIS, BILATERAL CLINICAL INFORMATION: Screening. Asymptomatic. COMPARISON: Mammography: Comparison is made with available priors TECHNIQUE: Digital breast mammography with tomosynthesis is performed in both the craniocaudal and mediolateral oblique views along with computer-aided detection (CAD). FINDINGS: There are scattered areas of fibroglandular density. There are no significant masses, abnormal calcifications, or other abnormalities. MM/MM tomosynthesis screening BI IMPRESSION: No mammographic evidence of malignancy. ASSESSMENT: BI-RADS Category 1: Negative RECOMMENDATION: Routine annual mammography screening. 1 year F/U This examination should not preclude the clinical evaluation of a suspicious palpable abnormality. This patient's information was entered into a reminder system with a target due date for their next mammogram. Electronically signed by: Sara Lutz DO 03/20/2025 08:43 AM EDT Dictated By: Sara Lutz DO Signed By: <Electronically signed by Sara Lutz DO in OV> 03/20/25 0843 DD/ 1456 TD/TT: 03/19/25 1518 Manager Cardiology: Edwin Zuleta MD IMG BI PROCEDURES Miguelito hector Result - Final * Foot w/ and w/o Contrast Right (03/06/2025 8:30 AM EDT) Anatomical Region Laterality Modality Lower Extremities, Foot Right Magnetic Resonance 03/06/2025 8:30 AM EDT Narrative 03/06/2025 3:29 PM EDT [place] [address] Magnetic Resonance Report Signed Patient: Dora Fernandez MR#: [id number] 005 : 1970 Acct:[id number] Age/Sex: 54 / F ADM Date: 03/06/25 Loc: HO.MRI Attending Dr: Marlene Tiwari MD Ordering Physician: Marlene Tiwari MD Date of Service: 03/06/25 Procedure(s): MR bosch RT wo/w con Accession Number(s): [id number] cc: Franklin Edwards MD; Marlene Tiwari MD; [...] Riley Dunaway MD 03/06/2025 03:27 PM EDT RP Dictated By: Riley Dunaway MD Signed By: <Electronically signed by Riley Dunaway MD in OV> 03/06/25 1527 DD/ 0830 TD/TT: 03/06/25 0911 Manager Cardiology: Procedure Note Donotuseinterpreter, Image - 03/06/2025 [place] [address] Magnetic Resonance Report Signed Patient: Vick Fernandez#: [id number] 005 : 1970Acct:[id number] Age/Sex: 54 / FADM Date: 03/06/25 Loc: HO.MRI Attending Dr: Marlene Tiwari MD Ordering Physician: Marlene Tiwari MD Date of Service: 03/06/25 Procedure(s): MR foot RT wo/w con Accession Number(s): [id number] cc: Franklin Edwards MD; Marlene Tiwari MD; [...] Dunaway MD Signed By: <Electronically signed by Riely Dunaway MD in OV> 03/06/25 1527 DD/ 0830 TD/TT: 03/06/25 0911 Manager Cardiology: [facility] External Provider IMG MRI PROCEDURES Final Result * XR Foot 3+ Views Right (02/06/2025 11:50 AM EDT) Anatomical Region Laterality Modality Lower Extremities, Foot Right Radiogra phic Imaging 02/06/2025 11:5 0 AM EDT Narrative 02/06/2025 12:41 PM EDT [address] [address] XRay Report Signed Patient: Dora Fernandez MR#: [id number] 005 : 1970 Acct:[id number] Age/Sex: 54 / F ADM Date: 02/06/25 Loc: [facility] Attending Dr: Edwin Benitez MD Ordering Physician: Edwin Benitez MD Date of Service: 02/06/25 Procedure(s): XR foot RT min 3V Accession Number(s): [id number] cc: Edwin Benitez MD EXAMINATION: XR FOOT, [...] 02/06/25 1238 DD/ 1150 TD/TT: 02/06/25 1156 Manager Cardiology: Procedure Note Donothermilainterpreter, Image - 02/06/2025 [place] [address] XRay Report Signed Patient: Dora FernandezMR#: [id number] 005 : 1970Acct:[id number] Age/Sex: 54 / FADM Date: 02/06/25 Loc: HO.[facility] Attending Dr: Edwin Benitez MD Ordering Physician: Edwin Benitez MD Date of Service: 02/06/25 Procedure(s): XR foot RT min 3V Accession Number(s): [id number] cc: Edwin Benitez MD EXAMINATION: XR FOOT, [...] 02/06/25 1238 DD/ 1150 TD/TT: 02/06/25 1156 Manager Cardiology: Edwin Zuleta MD IMG XR PROCEDURES Fin al Result * Calcitonin (02/06/2025 11:23 AM EDT) Pathologist [facility] Calcitonin (Thyrocalcitonin) <2 <=5 pg/mL [facility] Comment:This test was perfor med using the SiemensChemiluminescent method. Values obtained withdifferent assay methods cannot be used interchangeably.Calcitonin levels, regardless of value, should not beinterpreted as absolute evidence of the presence orabsence of the disease.THIS TEST WAS PERFORMED AT:[employer] [id number] [place] [address]HBUIKWVALEXANDER CUETO MD,PHD 02/06/2025 11:2 3 AM EDT 02/06/2025 12:56 PM EDT us Generic External Data Provider LAB BLOOD ORDERAB LES Final Result [facility] [address] [place] [phone] * (ABNORMAL) CBC auto differential (02/06/2025 11:13 AM EDT) [facility] White Blood Count 6.6 4.8 - 10.8 X10*3/uL [facility] Red Blood Count 4.26 4.20 - 5.50 X10*6/uL [facility] Hemoglobin 11.6(L) 12.0 - 16.0 g/dl [facility] Hematocrit 35.6(L) 37.0 - 47.0 % [facility] Mean Corpuscular Volume 83.6 80.0 - 98.0 fL [facility] Mean Corpuscular Hemoglobin 27.2 27.0 - 33.0 pg [facility] Mean Corpuscular HGB Conc 32.6 31.0 - 35.0 g/dl [facility] Red Cell Distribution Width 13.1 11.0 - 16.0 % [facility] Platelet Count 265 160 - 400 X10*3/uL [facility] Mean Platelet Volume 11.7 9.4 - 12.3 fL [facility] Neutrophils Percent Auto 55.6 45 - 73 % [facility] Imm Gran Pct Auto 0.6(H) 0.0 - 0.4 % [facility] Lymphocytes Percent Auto 26.4 20 - 40 % [facility] Monocytes Percent Auto 8.6 2 - 11 % [facility] Eosinophils Percent Auto 8.0(H) 0 - 4 % [facility] Basophils Percent Auto 0.8 0 - 2 % [facility] NRBC Pct Auto 0.0 0.0 - 0.2 /100WBC [facility] Neutrophils Absolute Auto 3.7 2.0 - 8.3 x10*3/uL [facility] Imm Gran Abs Auto 0.04(H) 0.00 - 0.03 X10*3/uL [facility] Lymphocytes Absolute Auto 1.7 1.2 - 4.9 X10*3/uL [facility] Monocytes Absolute Auto 0.6 0.1 - 1.2 X10*3/uL [facility] Eosinophils Absolute Auto 0.5(H) 0.0 - 0.4 X10*3/uL [facility] Basophils Absolute Auto 0.1 0.0 - 0.2 X10*3/uL [facility] NRBC Abs Auto 0.000 0.0 - 0.012 X10*3/uL [facility] 02/06/2025 11:1 3 AM EDT 02/06/2025 12:56 PM EDT us Generic External Data Provider LAB BLOOD ORDERAB LES Final Result [facility] [address] [place] [phone] * (ABNORMAL) Sed Rate by Modified Andry (02/06/2025 11:13 AM EDT) Erythrocyte Sedimentation Rate 21(H) 0 - 20 MM/HR [facility] Comment:Patients with polycy themia and many hemoglobin abnormalitiesmay have depressed sed rates whereas patients with anemiamay have elevated sed rates. 02/06/2025 11:1 3 AM EDT 02/06/2025 12:56 PM EDT us Generic External Data Provider LAB BLOOD ORDERAB LES Final Result Performing Organization Address [facility]/ZIP Co de Phone Number [facility] [address] [place] [phone] * (ABNORMAL) C-reactive Protein (02/06/2025 11:13 AM EDT) C Reactive Protein 2.66(H) < or = 0.50 mg/dL [facility] 02/06/2025 11:1 3 AM EDT 02/06/2025 12:56 PM EDT Generic External Data Provider LAB BLOOD ORDERAB LES Final Result Performing Organization Address [facility] de Phone Number [facility] [address] [place] [phone] * (ABNORMAL) Hemoglobin A1c (02/06/2025 11:13 AM EDT) Hemoglobin A1c 7.2(H) <6.0 % [facility] Comment:Hemoglobin A1C Refer ence Range Adults: 4.8 - 6.0 % Non diabetic: < 6.0 % Goal: < 7.0 %Additional Action Suggested: > 8.0 %Note: Hemoglobin A1c results are invalid for patients with abnormal amounts of HbF. Blood transfusions may impact the HbA1c concentration in the patient sample. Estimated Average Glucose 160 mg/dL [facility] Comment:eAG = Estimated ave rage glucose which is %A1C expressed asaverage glucose, using the formula of the N1I-KidagyeZvobyyu Glucose study (ADAG), Diabetes Care, Vol.31,#8,2007 02/06/2025 11:1 3 AM EDT 02/06/2025 12:56 PM EDT us Generic External Data Provider LAB BLOOD ORDERAB LES Final Result Performing Organization Address [facility] Co de Phone Number [facility] [address] [place] [phone] * Albumin, Random Urine W/Creatinine (01/27/2025 9:31 AM EDT) Creatinine, Urine 168.19 mg/dL [facility] Microalbumin Urine 17.0 mg/L [facility] Microalbum Creatinine Ratio Ur 10.1 <30 ug/mg cr [facility] Comment:Albumin/Creatinine R atio Reference Ranges: Normal: < 30 ug/mg creatinine Microalbuminuria: 30 - 300 ug/mg creatinineClinical Albuminuria: > 300 ug/mg creatinine Urine (Urine, Random) 01/27/2025 9:31 AM EDT 01/27/2025 11:14 AM EDT us Edwin Zuleta MD LAB URINE ORDERABLES Final Result Performing Organization Address [facility] Co de Phone Number [facility] [address] [place] [phone] * Lipid Panel, Standard (01/27/2025 9:31 AM EDT) Triglycerides 64 <150 mg/dL [facility] Comment:Desirable Triglyceri de: less than 150 mg/dLBorderline High Triglyceride 150-199 mg/dLHigh Triglyceride: 200-499 mg/dLVery High Triglyceride: greater than or equal to 5OO mg/dL Cholesterol 134 <200 mg/dL [facility] Comment:Desirable Cholestero l: less than 200 mg/dLBorderline High Cholesterol: 200-239 mg/dLHigh Cholesterol: greater than 239 mg/dL LDL Cholesterol Calculated 61 <100 mg/dL [facility] Comment:Desirable LDL: less than 100 mg/dLNear Optimal/Above Optimal LDL: 110- 129 mg/dLBorderline High LDL: 130-159 mg/dLHigh LDL: 160-189 mg/dLVery High LDL: greater than or equal to 190 mg/dL HDL Cholesterol 61 >40 mg/dL [facility] Comment:Desirable HDL: great er than 40 mg/dL Note: This HDL assay may give artificially low results in patients with liver disease. Blood Venous blood specimen / Unknown 01/27/2025 9:31 AM EDT 01/27/2025 11:22 AM EDT us Edwin Zuleta MD LAB BLOOD ORDERABLES Final Result [facility] [address] [place] [address] [phone] * (ABNORMAL) Comprehensive Metabolic Panel (01/27/2025 9:31 AM EDT) Sodium 142 135 - 145 mmol/L [facility] Potassium 4.5 3.3 - 5.1 mmol/L [facility] Chloride 102 96 - 108 mmol/L [facility] Carbon Dioxide 31(H) 22 - 29 mmol/L [facility] Anion Gap 14 12 - 20 [facility] Urea Nitrogen (BUN) 28(H) 9 - 16 mg/dL [facility] Creatinine, Serum 1.35 0.5 - 1.4 mg/dL [facility] Estimated Glomerular Filt Rate 41 [facility] Comment:Chronic Kidney Disea se: Estimated GFR < 60 mL/min/1.23w4Qrikbs Kidney Disease: Estimated GFR < 15 mL/min/1.73m2 Glucose 108 60 - 115 mg/dL [facility] Calcium 9.3 8.4 - 10.2 mg/dL [facility] Bilirubin, Total 0.3 0.0 - 1.0 mg/dL [facility] Aspartate Amino Transferase 27 5 - 31 U/L [facility] Alanine Aminotransferase 17 0 - 31 U/L [facility] Total Protein 8.1(H) 6.5 - 8.0 g/dL [facility] Albumin Level 4.3 3.5 - 5.0 g/dL [facility] Alkaline Phosphatase 103 39 - 117 U/L [facility] Blood Venous blood specimen / Unknown 01/27/2025 9:31 AM EDT 01/27/2025 11:22 AM EDT Edwin Zuleta MD LAB BLOOD ORDERABLES Final Result [facility] [address] [place] [phone] * (ABNORMAL) POCT HGB A1C (01/09/2025 12:05 PM EDT) [facility] Hemoglobin A1C 7.2(A) 4.0 - 5.7 % QC Media Lot # [id number] Lot# Expiration Date [id number], Blood 01/09/2025 12:0 5 PM EDT Edwin Zuleta MD POINT OF CARE TEST EN TER/EDIT ORDERABLES Final Result * POCT Glucose (01/09/2025 12:03 PM EDT) [facility] Glucose Blood, POC 136 60 - 200 mg/dL QC Media Lot # [id number] Lot# Expiration Date [id number] Blood Capillary blood specimen / Unknown 01/09/2025 12:03 PM EDT Edwin Zuleta MD POINT OF CARE TEST EN TER/EDIT ORDERABLES Final Result * HEPATITIS C AB W/REFL TO HCV RNA, QN, PCR (02/25/2022 9:25 AM EDT) [facility] HEPATITIS C ANTIBODY NON-REACT REMI NON-REACT REMI [facility] INDEX 0.08 <1.00 [facility] Comment: HCV antibody was non-reactive. There is no laboratory evidence of HCV infection. In most cases, no further action is required. However, if recent HCV exposure is suspected, a test for HCV RNA (test code 31583) is suggested. For additional information please refer to http://education.Holla@Me/faq/YBV44g5 (This link is being provided for informational/ educational purposes only.) 02/25/2022 9:25 AM EDT Edwin Zuleta MD HISTORICAL/NON ORDERA BLE LABS Final Result [facility] [address] * Hm Colonoscopy (12/25/2018 7:41 AM EDT) Historical Provider HEALTH MAINTENANCE Final Result from Last 3 Months or Most Recently Relevant to Health Maintenance Insurance [facility] < 65 ALYSA CHAN [id number] Care Teams Employment Representative Relationship Specialty Start Date End Date Edwin Kirk MD [address] [place] [address] PCP - General Internal Medicine 03/31/14 Isa Curry PharmD [address] [place] [address] Pharmacist Internal Medicine 09/05/24
--- OUTSIDE RECORDS SUMMARY | 2025-03-20 15:00 | XMS_ITS | Patient Health Record ---
Author Organization [facility] Address [address] [facility] [place] [address] Care Team Providers Care Casing Finisher And Stuffer Name Role Phone Garry Zuleta MD, Edwin Primary Care Provide r Unavailable Cristofer Hilario Unavailable [phone] Allergies No Known Allergies Results Component Value [...] Problem Acquired hammer toe of right foot (337980064630266 5) Other hammer toe(s) (acquired), right foot (M20.41) Active confirmed Problem Acquired hammer toe of left foot (756823024996111 3) Other hammer toe(s) (acquired), left foot (M20.42) Active confirmed Problem Polyneuropathy due to type 2 diabetes mellitus (233965422) Type 2 diabetes mellitus with diabetic polyneuropathy [...] Ordered Date Performed Result Body Sit e 13006-JLWQTRN NAIL, 6 OR MORE 04/05/2024 N/A 56280-WAWT SKIN LESIONS, OVER 4 04/05/2024 N/A 10159-QWRWVLI NAIL, 6 OR MORE 07/12/2024 N/A 10312-RWFVFRW SKIN/TISSUE 07/12/2024 N/A 53097-FJZV SKIN LESIONS, OVER 4 07/12/2024 N/A 76943-FRCCPTX NAIL, 6 OR MORE 10/18/2024 N/A 41210-MXNNGGU SKIN/TISSUE 10/18/2024 N/A 70196-CNUP SKIN LESIONS, OVER 4 10/18/2024 N/A 88809-CSSACWU NAIL, 6 OR MORE 01/24/2025 N/A 81109-VJWKRUS SKIN/TISSUE 01/24/2025 N/A 35927-AHZD SKIN LESIONS, OVER 4 01/24/2025 N/A Encounters Encounter Location Date Provider Diagnosis [address] [address] 04/05/2024 Cristofer Hilario Type 2 diabetes mellitus with diabetic polyneuropathy E11.42 ; Tinea unguium B35.1 ; Other hammer toe(s) (acquired), right foot M20.41 and Other hammer toe(s) (acquired), left foot M20.[address] [address] 07/12/2024 Cristoferreyna Hilario Type 2 diabetes mellitus with diabetic polyneuropathy E11.42 ; Tinea unguium B35.1 ; Other hammer toe(s) (acquired), right foot M20.41 ; Other hammer toe(s) (acquired), left foot M20.42 and Neuropathic ulcer of right foot with fat layer exposed L97.[address] [address] 10/18/2024 Cristofer Hilario Type 2 diabetes mellitus with diabetic polyneuropathy E11.42 ; Tinea unguium B35.1 and Neuropathic ulcer of right foot with fat layer exposed L97.[address] [address] 01/24/2025 Cristofer Hilario Type 2 diabetes mellitus with diabetic polyneuropathy E11.42 ; Tinea unguium B35.1 and Neuropathic ulcer of right foot with fat layer exposed L97.[address] [address] 04/05/2024 Cristofer Hilario [address] [address] 01/24/2025 Cristofer Hilario Assessments Encounter Date Diagnosis [...] X ray : Foot, right 3V 04/13/2022 75340-QWZUORJ NAIL, 6 OR MORE 08/29/2022 14032-KLEQYEL NAIL, 6 OR MORE 03/02/2022 93832-UPPBDCI NAIL, 6 OR MORE 11/02/2022 76038-JWTMZRG NAIL, 6 OR MORE 02/23/2023 43047-CWFTCFZ NAIL, 6 OR MORE 05/24/2021 11327-NIIBLJN NAIL, 6 OR MORE 08/02/2021 11142-TTKZGBL NAIL, 6 OR MORE 10/11/2021 67247-JXHEHWG NAIL, 6 OR MORE 12/22/2021 80278-OSSLHWS NAIL, 6 OR MORE 11/18/2019 18906-UMXWWYU NAIL, 6 OR MORE 02/03/2020 92386-RIEBVAM NAIL, 6 OR MORE 06/01/2020 69271-IEWEZFS NAIL, 6 OR MORE 08/10/2020 59449-XMOTDAX NAIL, 6 OR MORE 10/19/2020 00677-SRVYQGN NAIL, 6 OR MORE 12/28/2020 71319-WLNSPBS NAIL, 6 OR MORE 03/15/2021 69716-NJGYPFJ NAIL, 6 OR MORE 05/16/2023 91239-GNWHAYH NAIL, 6 OR MORE 07/28/2023 71142-XFYQTIM NAIL, 6 OR MORE 10/06/2023 58665-STMBSOK NAIL, 6 OR MORE 04/05/2024 43460-XDPIBDY NAIL, 6 OR MORE 07/12/2024 39459-CBZYPDP NAIL, 6 OR MORE 10/18/2024 83283-PBQHSRU NAIL, 6 OR MORE 01/24/2025 48815-BZOXEMI NAIL, 1-5 08/12/2019 72098- Debride <25 sq cm 06/01/2020 36331- Debride <25 sq cm 02/03/2020 98261- Debride <25 sq cm 04/13/2022 02003-OIRHXHB SKIN/TISSUE 07/12/2024 58519-YQZFKDJ SKIN/TISSUE 01/24/2025 17442-IPYGQCR SKIN/TISSUE 10/18/2024 37217-HMKPDYA SKIN/TISSUE 05/16/2023 34371-KFRB SKIN LESIONS, OVER 4 05/16/20 23 32032-XLEH SKIN LESIONS, OVER 4 07/28/19 91214-XSQD SKIN LESIONS, OVER 4 04/05/20 77770-VNRI SKIN LESIONS, OVER 4 10/06/19 48278-STMR SKIN LESIONS, OVER 4 10/19/19 94623-VADN SKIN LESIONS, OVER 4 01/25/20 15486-DWPB SKIN LESIONS, OVER 4 07/12/19 89473-VZQW SKIN LESIONS, OVER 4 02/03/20 22984-PQDO SKIN LESIONS, OVER 4 06/01/20 01033-HOAO SKIN LESIONS, OVER 4 11/18/19 93187-HRCO SKIN LESIONS, OVER 4 03/15/20 18586-IRJU SKIN LESIONS, OVER 4 12/29/19 60081-IPYR SKIN LESIONS, OVER 4 10/20/19 71663-NGPJ SKIN LESIONS, OVER 4 08/10/19 87853-RADE SKIN LESIONS, OVER 4 12/23/19 09095-VKJS SKIN LESIONS, OVER 4 10/12/19 01750-LYRE SKIN LESIONS, OVER 4 08/02/19 45939-XBTI SKIN LESIONS, OVER 4 05/24/20 77360-AEJU SKIN LESIONS, OVER 4 02/24/20 78794-KOHW SKIN LESIONS, OVER 4 11/03/19 36934-VTIN SKIN LESIONS, OVER 4 03/02/20 24536-UDKP SKIN LESIONS, OVER 4 08/30/19 23 24908-UAZU SKIN LESIONS, 2 TO 4 08/12/19 20 86345-Draa. Subungual Hematoma 3 Next Appt Details Provider Name:Cristofer Hilario , 05/13/2025 01:45:00 PM, [address] [place] [address], [phone], Insurance Providers Payer Name Payer Address Payer Phone Subscriber Number Group Number Insured Name Patient Relationship to Insured Coverage Start Date Coverage End Date [facility] [employer] Claims [address] ALYSA Payne [id number] Dora Fernandez Self - patient is the [...] Amputation, T6, T7 Hospitalization History Reason Date(Month/Year) [facility]- infection 06/2024
--- OUTSIDE RECORDS SUMMARY | 2025-03-20 15:00 | XMS_ITS | Encounter Summary ---
Author Organization [employer] Address [address] [facility] 7t [place] [address] Care Team Providers Care Firer Automatic Stoker Name Role Phone Edwin Kirk MD Primary Care Provide r Isa Curry PharmD Unavailable [phone] Reason for Visit * Reason Comments Med Refill Encounter Details Date Type Department Care Team ([facility] st Contact Info) Description 10/25/2024 Refill [facility] MEDICINE [address] [place] [address] Sherrie Carey, ANP [address] [place] [address] Diabetic polyneuropathy associated with type 2 diabetes [...] Description 03/27/2025 10:00 AM EDT Office Visit [facility] MEDICINE [address] [place] [phone] Edwin Kirk MD [address] [place] [address] 04/24/2025 10:00 AM EST Medication Management [facility] MEDICINE [address] [place] [phone] Isa Curry PharmD [address] [place] [phone] documented as of this encounter Goals Goal [...] documented as of this encounter Care Teams Firer Automatic Stoker Relationship Specialty Start Date End Date Edwin Kirk MD [address] [place] [address] PCP - General Internal Medicine 03/31/14 Isa Curry PharmD [address] [place] [address] Pharmacist Internal Medicine 09/05/24 [employer] [facility] 06/27/24 01/23/25 documented as of this encounter
--- OUTSIDE RECORDS SUMMARY | 2025-03-20 15:00 | XMS_ITS | Encounter Summary ---
Author Organization [employer] [facility] Address [address] [facility] 7t [place] [address] Care Team Providers Care Wig Stylist Name Role Phone Edwin Kirk MD Primary Care Provide r Isa Curry PharmD Unavailable [phone] Encounter Details Date Type Department Care Team (Late st Contact Info) Description 10/27/2022 Abstract [facility] MEDICINE [address] [place] [address] [phone] Edwin Kirk MD [address] [place] [address] [phone] Social History Tobacco Use Types Packs/Day Years [...] Office Visit [facility] MEDICINE [address] [place], [place] [phone] Edwin Kirk MD [address] [place] [address] [phone] 04/24/2025 10:00 AM EST Medication Management [facility] MEDICINE [address] [place], [place] [phone] Isa Curry PharmD [address] [place] [address] documented as of this encounter Visit Diagnoses Not on filedocumented in this encounter Care Teams Wig Stylist Relationship Specialty Start Date End Date Edwin Kirk MD [address] [place] [address] [phone] PCP - General Internal Medicine 03/31/14 Isa Curry PharmD [address] [place] [address] [phone] Pharmacist Internal Medicine 09/05/24 [employer] [facility] 06/27/24 01/23/25 documented as of this encounter
--- OUTSIDE RECORDS SUMMARY | 2025-03-20 15:00 | XMS_ITS | Encounter Summary ---
Author Organization [employer] Address [address] [facility] 7t [place] [address] Care Team Providers Care Pouncing Machine Operator Name Role Phone Edwin Kirk MD Primary Care Provide r Isa Curry PharmD Unavailable [phone] Reason for Visit * Reason Onset Date Comments Hospital Follow-up 06/26/2024 Encounter Details Date Type Department Care Team ([facility] st Contact Info) Description 06/26/2024 Telephone [facility] MEDICINE [address] [place] [address] dEwin Kirk MD [address] [place], [place] [phone] Hospital Follow-up Social History Tobacco Use Types [...] from pt requesting a HDF appt. Hospital: Date of admission: 06/24/24 Discharge date: 06/26/24 Diagnosed: Foot infection *Send message to [facility] Clinical Care Coordinators documented in this encounter Plan of Treatment Upcoming Encounters Date Type Department Care Team (Late st Contact Info) Description 03/27/2025 10:00 AM EDT Office Visit [facility] MEDICINE [address] [place] [phone] Edwin Kirk MD [address] [place] [phone] 04/24/2025 10:00 AM EST Medication Management [facility] MEDICINE [address] [place] [phone] Isa Curry, Vinod [address] [place] [address] documented as of this encounter Goals Goal [...] documented as of this encounter Care Teams Pouncing Machine Operator Relationship Specialty Start Date End Date Edwin Kirk MD [address] [place] [address] PCP - General Internal Medicine 03/31/14 Isa Curry, GurmeetD [address] [place] [address] Pharmacist Internal Medicine 09/05/24 [employer] [facility] 06/27/24 01/23/25 documented as of this encounter
--- OUTSIDE RECORDS SUMMARY | 2025-03-20 15:00 | XMS_ITS | Encounter Summary ---
Author Organization [employer] Address [address] [facility] 7t [place] [address] Care Team Providers Care School Business Manager Name Role Phone Edwin Kirk MD Primary Care Provide r Isa Curry PharmD Unavailable [phone] Encounter Details Date Type Department Care Team ([facility] Contact Info) Description 12/12/2024 Telephone [facility] MEDICINE [address] [place] [address] Edwin Kirk MD [address] [place], [place] [phone] Social History Tobacco Use Types Packs/Day Years [...] Description 03/27/2025 10:00 AM EDT Office Visit [facility] MEDICINE [address] [place] [phone] Edwin Kirk MD [address] [place] [phone] 04/24/2025 10:00 AM EST Medication Management [facility] MEDICINE [address] [place] [phone] Isa Curry PharmD [address] [place] [address] documented as of this encounter Goals Goal [...] as of this encounter Care Teams School Business Manager Relationship Specialty Start Date End Date Edwin Kirk MD [address] [place], [place] [phone] PCP - General Internal Medicine 03/31/14 Isa Curry PharmD [address] [place] [address] Pharmacist Internal Medicine 09/05/24 [employer] [facility] 06/27/24 01/23/25 documented as of this encounter
--- OUTSIDE RECORDS SUMMARY | 2025-03-20 15:00 | XMS_ITS | Encounter Summary ---
Author Organization [employer] Address [address] [place] [address] 7 [place] [address] Care Team Providers Care Hotel Services Sales Representative Name Role Phone Edwin Kirk MD Primary Care Provide r Isa Curry PharmD Unavailable [phone] Encounter Details Date Type Department Care Team (Late st Contact Info) Description 11/23/2022 [facility] Information Management [address] [place] [address] Edwin Kirk MD [address] [place], [place] [phone] Social History Tobacco Use Types Packs/Day Years [...] Description 03/27/2025 10:00 AM EDT Office Visit [facility] MEDICINE [address] [place], [place] [phone] Edwin Kirk MD [address] [place], [place] [phone] 04/24/2025 10:00 AM EST Medication Management [facility] MEDICINE [address] [place], [place] [phone] Isa Curry PharmD [address] [place], [place] [phone] documented as of this encounter Visit Diagnoses Not on filedocumented in this encounter Care Teams Hotel Services Sales Representative Relationship Specialty Start Date End Date Edwin Kirk MD [address] [place] [address] [phone] PCP - General Internal Medicine 03/31/14 Isa Curry PharmD [address] [place] [address] [phone] Pharmacist Internal Medicine 09/05/24 [employer] [facility] 06/27/24 01/23/25 documented as of this encounter
--- OUTSIDE RECORDS SUMMARY | 2025-03-20 15:00 | XMS_ITS | Encounter Summary ---
Author Organization [employer] Address [address] [facility] 7t [place] [address] Care Team Providers Care Building Tech Name Role Phone Edwin Kirk MD Primary Care Provide r Isa Curry PharmD Unavailable Reason for Visit * Reason Comments Med Refill Encounter Details Date Type Department Care Team ([facility] st Contact Info) Description 10/25/2024 Refill [facility] MEDICINE [address] [place] [address] Sherrie Carey, ANP [address] [place] [address] Diabetic polyneuropathy associated with type 2 diabetes [...] [facility] [address] [place] [phone] Edwin Kirk MD [address] [place] [address] 04/24/2025 10:00 AM EST Medication Management [facility] MEDICINE [address] [place] [phone] Isa Curry PharmD [address] [place] [phone] documented as of this encounter Goals Goal [...] documented as of this encounter Care Teams Building Tech Relationship Specialty Start Date End Date Edwin Kirk MD [address] [place] [address] PCP - General Internal Medicine 03/31/14 Isa Curry PharmD [address] [place] [address] Pharmacist Internal Medicine 09/05/24 [employer] [facility] 06/27/24 01/23/25 documented as of this encounter
--- OUTSIDE RECORDS SUMMARY | 2025-03-20 15:00 | XMS_ITS | Encounter Summary ---
Author Organization [employer] Address [address] [facility] 7t [place] [address] Care Team Providers Care Textile Slitting Machine Operator Name Role Phone Edwin Kirk MD Primary Care Provide r Isa Curry PharmD Unavailable [phone] Reason for Visit * Reason Comments Med Refill Encounter Details Date Type Department Care Team ([facility] st Contact Info) Description 05/17/2024 Refill [facility] MEDICINE [address] [place] [address] Edwin Kirk MD [address] [place] [address] Type 2 diabetes mellitus with diabetic neuropathic arthropathy, with long-term current use of insulin ([facility]) Social History Tobacco Use Types Packs/Day Years [...] Description 03/27/2025 10:00 AM EDT Office Visit [facility] MEDICINE [address] [place] [phone] Edwin Kirk MD [address] [place] [address] 04/24/2025 10:00 AM EST Medication Management [facility] MEDICINE [address] [place] [phone] Isa Curry PharmD [address] [place] [phone] documented as of this encounter Goals Goal [...] documented as of this encounter Care Teams Textile Slitting Machine Operator Relationship Specialty Start Date End Date Edwin Kirk MD [address] [place] [address] PCP - General Internal Medicine 03/31/14 Isa Curry PharmD [address] [place] [address] Pharmacist Internal Medicine 09/05/24 [employer] [facility] 06/27/24 01/23/25 documented as of this encounter
[2025-03-26 17:05] VITALS: BMI 51.1
[2025-03-27 15:11] VITALS: BMI 50.6
[2025-04-01 06:39] VITALS: BP 143/64; PULSE 97; RESP 16; TEMP 36.6; O2SAT 97
[2025-04-01] MEDS: Lactated Ringers 1,000 ML 100 ML IVCONT (06:40)
[2025-04-01 06:43] LABS: Glucose, Whole Blood 138 mg/dL (60-115)
--- NOTE | 2025-04-01 07:13 | MHC.SHP ---
Pre-Procedural Eval Section A - 24 Hr Update-Section A only Date of Service: 04/01/25 The patient is an INPATIENT: No Changes since office visit: No Cold of Flu in the past 2 weeks, No New Medical Problems, No Changes in Medication and No Patient answered all questions The patient has been examined within 24 hours of the surgical procedure. The History & Physical has been completed within 30 days and I have reviewed it.: Yes Section B - Complete if H&P > 30 days Chief Complaint: Osteomyelitis, unspecified Allergies: Allergies Allergy/AdvReac Type Severity Reaction Status Date / Time No Known Allergies Allergy Unknown Verified 03/13/25 09:53 Plan I have reviewed the history and physical and performed a pertinent physical examination on my patient. No changes have occurred unless specified. Time Spent With Patient Time: Total time managing care of this patient today ____ minutes.
--- NOTE | 2025-04-01 07:30 | HO.ANESPROP2 ---
Documented by User: Sobeida Rodas NP 03/27/25 14:34 HPI - Anesthesia Eval Consult details Narrative: 55yo F for Right Toe Amputation, 5th BMI 51 Anesthesia Pre-Procedure Meds Is the patient on any of the following meds?: GLP1/DPP4 PMFSH Active Problems Active Problems: All Active Problems Osteomyelitis of toe of right foot (Acute) Foot ulcer, right (Acute) Wound of foot (Acute) Unspecified open wound, right foot, initial encounter (Acute) Diabetic foot infection (Acute) Patellofemoral arthritis of right knee (Acute) Toe ulcer due to DM (Acute) Arm swelling (Acute) Acute osteomyelitis (Acute) Diabetic foot ulcer (Acute) Restrictive lung disease (Acute) Dyspnea on exertion (Acute) Morbid obesity (Acute) S/P cardiac catheterization (Acute) Exertional chest pain (Acute) Gallstones (Acute) Chronic kidney disease, stage 3 (Acute) Diabetic polyneuropathy (Acute) Hyperlipidemia LDL goal <100 (Acute) Hypertension (Acute) Vitamin D deficiency (Acute) Obesity due to excess calories (Acute) Past Medical History Medical History (Updated 03/13/25 @ 10:06 by Dylan Lim MD) Osteomyelitis of toe of right foot Foot ulcer, right Wound of foot Toe ulcer due to DM Arm swelling Restrictive lung disease Dyspnea on exertion Morbid obesity Gallstones Obesity due to excess calories Chronic kidney disease, stage 3 Charcot foot due to diabetes mellitus Depression Vitamin D deficiency Hyperlipidemia LDL goal <100 Hypertension Diabetic polyneuropathy Type 2 diabetes mellitus with chronic kidney disease Family History Family History Father Type 2 diabetes mellitus Mother Type 2 diabetes mellitus Diverticulitis Hypertension Surgical History Surgical History Hx of colonoscopy History of partial ray amputation of third toe of right foot Hx of wisdom tooth extraction History of partial amputation of toe (2018) History of total hysterectomy with bilateral salpingo-oophorectomy (BSO) Social History Social History (Updated 03/27/25 @ 15:16 by Fatuma Gerber RN) Household Members: Family Household Members Other:: , mother Housing: Condominium Are you a primary manager intensive care unit to a significant other at home: No Do you presently have visiting nurse or other home services: No Alcohol intake: former Patient Tobacco Use Status: Never used Tobacco Use of substances other than those prescribed or required for medical reasons: No Are you DNR?: No Advance Directives: No Advance Directives Information Provided: Yes Advance Directives on File: No service: No Meds Allergies Allergy/AdvReac Type Severity Reaction Status Date / Time No Known Allergies Allergy Unknown Verified 03/13/25 09:53 Home Medications ?Medication ?Instructions ?Recorded ?Confirmed ?Last Taken ?Type bupropion HCl 300 mg 24 hr tablet, 300 mg PO DAILY 03/20/20 03/27/25 06/24/24 History extended release escitalopram oxalate 10 mg tablet 10 mg PO DAILY 03/20/20 03/27/25 06/24/24 History gabapentin 300 mg capsule 300 mg PO BID 03/20/20 03/27/25 06/24/24 History lisinopril 10 mg tablet 10 mg PO DAILY 03/20/20 03/27/25 06/24/24 History omeprazole 20 mg capsule,delayed 20 mg PO DAILY@0630 03/20/20 03/27/25 06/24/24 History release oxcarbazepine 300 mg tablet 300 mg PO BID 03/20/20 03/27/25 06/24/24 History aspirin 81 mg tablet,delayed 81 mg PO DAILY 12/28/22 03/27/25 06/24/24 History release insulin glargine U-300 conc 300 40 unit subcut BEDTIME 12/28/22 03/27/25 06/23/24 History unit/mL (1.5 mL) subcutaneous pen (Toujeo SoloStar U-300 Insulin) insulin aspart U-100 100 unit/mL See Protocol subcut TIDAC 05/16/23 03/27/25 06/24/24 History (3 mL) subcutaneous pen (Novolog FlexPen U-100 Insulin aspart) eszopiclone 3 mg tablet 3 mg PO BEDTIME PRN Sleep 06/14/24 03/27/25 Unknown History lancets 33 gauge (TRUEplus Lancets) #100 ea 06/14/24 02/11/25 Unknown History metoprolol succinate 25 mg 25 mg PO DAILY 06/14/24 03/27/25 06/24/24 History tablet,extended release 24 hr pen needle, diabetic 32 gauge x #1,200 ea 06/14/24 02/11/25 Unknown History (Pentips Pen Needle) tirzepatide 5 mg/0.5 mL 5 mg subcut QWEEK 02/11/25 03/27/25 03/24/25 History subcutaneous pen injector (Mounjaro) Exam Height,Weight and Vital Signs: Height 5 ft 9 in Weight 156.943 kg Pertinent Lab Results Pertinent Lab Results: Laboratory Tests 01/27/25 02/06/25 09:31 11:13 WBC 6.6 Hgb 11.6 L Hct 35.6 L Plt Count 265 Sodium 142 Potassium 4.5 Chloride 102 Carbon Dioxide 31 H BUN 28 H Creatinine 1.35 Assessment and Plan Assessment Anesthesia Assessment: Chart Reviewed Documented by User: Essence Chaves DO 04/01/25 07:33 HPI - Anesthesia Eval Anesthesia Pre-Procedure Meds Is the patient on any of the following meds?: GLP1/DPP4 PMFSH Past Medical History Medical History (Updated 03/13/25 @ 10:06 by Dylan Lim MD) Osteomyelitis of toe of right foot Foot ulcer, right Wound of foot Toe ulcer due to DM Arm swelling Restrictive lung disease Dyspnea on exertion Morbid obesity Gallstones Obesity due to excess calories Chronic kidney disease, stage 3 Charcot foot due to diabetes mellitus Depression Vitamin D deficiency Hyperlipidemia LDL goal <100 Hypertension Diabetic polyneuropathy Type 2 diabetes mellitus with chronic kidney disease Family History Family History Father Type 2 diabetes mellitus Mother Type 2 diabetes mellitus Diverticulitis Hypertension Family history of problems with anesthesia: No Surgical History Surgical History Hx of colonoscopy History of partial ray amputation of third toe of right foot Hx of wisdom tooth extraction History of partial amputation of toe (2018) History of total hysterectomy with bilateral salpingo-oophorectomy (BSO) History of Problems with Anesthesia: No Social History Social History (Updated 03/27/25 @ 15:16 by Fatuma Gerber RN) Household Members: Family Household Members Other:: , mother Housing: Condominium Are you a primary manager intensive care unit to a significant other at home: No Do you presently have visiting nurse or other home services: No Alcohol intake: former Patient Tobacco Use Status: Never used Tobacco Use of substances other than those prescribed or required for medical reasons: No Are you DNR?: No Advance Directives: No Advance Directives Information Provided: Yes Advance Directives on File: No service: No Meds Allergies Allergy/AdvReac Type Severity Reaction Status Date / Time No Known Allergies Allergy Unknown Verified 03/13/25 09:53 Home Medications ?Medication ?Instructions ?Recorded ?Confirmed ?Last Taken ?Type bupropion HCl 300 mg 24 hr tablet, 300 mg PO DAILY 03/20/20 03/27/25 06/24/24 History extended release escitalopram oxalate 10 mg tablet 10 mg PO DAILY 03/20/20 03/27/25 06/24/24 History gabapentin 300 mg capsule 300 mg PO BID 03/20/20 03/27/25 06/24/24 History lisinopril 10 mg tablet 10 mg PO DAILY 03/20/20 03/27/25 06/24/24 History omeprazole 20 mg capsule,delayed 20 mg PO DAILY@0630 03/20/20 03/27/25 06/24/24 History release oxcarbazepine 300 mg tablet 300 mg PO BID 03/20/20 03/27/25 06/24/24 History aspirin 81 mg tablet,delayed 81 mg PO DAILY 12/28/22 03/27/25 06/24/24 History release insulin glargine U-300 conc 300 40 unit subcut BEDTIME 12/28/22 03/27/25 06/23/24 History unit/mL (1.5 mL) subcutaneous pen (Toujeo SoloStar U-300 Insulin) insulin aspart U-100 100 unit/mL See Protocol subcut TIDAC 05/16/23 03/27/25 06/24/24 History (3 mL) subcutaneous pen (Novolog FlexPen U-100 Insulin aspart) eszopiclone 3 mg tablet 3 mg PO BEDTIME PRN Sleep 06/14/24 03/27/25 Unknown History lancets 33 gauge (TRUEplus Lancets) #100 ea 06/14/24 02/11/25 Unknown History metoprolol succinate 25 mg 25 mg PO DAILY 06/14/24 03/27/25 06/24/24 History tablet,extended release 24 hr pen needle, diabetic 32 gauge x #1,200 ea 06/14/24 02/11/25 Unknown History (Pentips Pen Needle) tirzepatide 5 mg/0.5 mL 5 mg subcut QWEEK 02/11/25 03/27/25 03/24/25 History subcutaneous pen injector (Caitlyn) Exam Exam Date and Time: 04/01/25 0722 Height,Weight and Vital Signs: Height 5 ft 9 in Weight 156.943 kg Vital Signs Temperature 97.8 F 04/01/25 06:39 Pulse Rate 97 04/01/25 06:39 Respiratory Rate 16 04/01/25 06:39 Blood Pressure 143/64 H 04/01/25 06:39 Pulse Oximetry 97 04/01/25 06:39 Oxygen Delivery Method Room Air 04/01/25 06:39 Temperature 97.8 F 04/01/25 06:39 Pulse Rate 97 04/01/25 06:39 Respiratory Rate 16 04/01/25 06:39 Blood Pressure 143/64 H 04/01/25 06:39 Pulse Oximetry 97 04/01/25 06:39 Oxygen Delivery Method Room Air 04/01/25 06:39 Airway Mallampati Class: I TM Dist: >3cm Neck ROM: Full Partial: Upper Heart: S1S2 Lungs: CTAB Assessment and Plan Assessment Anesthesia Assessment: Anesthesia Plan Discussed and Chart Reviewed Final Anesthetic Review Family History of Problems with Anesthesia: No History of Problems with Anesthesia: No NPO: Yes ASA Class: III Final Preanesthetic Review: No Changes in Pt Med Stat, Meds/Allgs Chart Reviewed, Consent Obtained/Reviewed and Anes Risks/Benef Reviewed Patient Risk: Intermediate Procedure Risk: Low Anesthetic Plan Anesthetic Plan: GA and Agree w/ Assess. and Plan Disposition: Standard PACU
[2025-04-01 08:50] VITALS: BP 111/58; PULSE 72; RESP 14; TEMP 36.1; O2SAT 98
--- NOTE | 2025-04-01 08:51 | P.OP_ITS ---
Operative Note Operative Note Date of Service: 04/01/25 Narrative: Preop diagnosis: Nonhealing wound of the right foot with osteomyelitis of the 5th toe from the proximal phalanx all the way to the distal 3rd of the the tarsal Postop diagnosis: The same Procedure: Amputation of the to, right foot, at the mid metatarsal level Surgeon: Dylan Lim MD anesthesiology physician assistant: ALYSA Lynch The patient is a 55 year female with a nonhealing wound on the lateral aspect of the forefoot with an MRI showing osteomyelitis of the proximal phalanx all the way to the distal 3rd of the metatarsal. She understood the technique of amputation of the 5th toe. She was aware of the risks, benefits, and alternatives. She was brought to the operating room placed supine under general anesthesia via laryngeal mask airway. The right foot was prepped and draped in the usual sterile fashion. A surgical time-out was done. The patient received cefazolin 2 g IV preoperatively I infiltrated the planned line of incision with lidocaine 1%. I made the incision from the interphalangeal area all the way to the lateral aspect of the foot proximally with a blade 15. This has a carried down through the full- thickness of the skin and subcutaneous fat and soft tissue with electrocautery. I had to incorporate the large ulcer and healthy looking skin with the incision I expose the entire metatarsal head all the way to the metatarsal with careful sharp dissection. I had to cauterized oozing areas periodically. I then proceeded to circumferentially expose the proximal metatarsal. I used the bone elevator to achieve good exposure. I then used the electric saw divide the metatarsal. I cauterized oozing areas. I completed dissection by dividing the rest of the attached soft tissue including tendons with a curved Pulido scissors. I copiously irrigated. We had a large soft tissue defect because of the ulcer so I had to remove more of the proximal metatarsal using the saw to allow closure of the skin and soft tissue over the bone. We then proceeded to use a bone file to further beveled of the divided metatarsal We copiously irrigated again. We had to cauterize extensively in view of diffuse oozing throughout the soft tissue especially the dermal layer Once hemostasis was achieved, I proceeded to then close the incision with mass closure of the soft tissue and skin using nylon 2-0 sutures. I infiltrated the area with Marcaine 0.5% for postop analgesia. I applied dressings and wrapped the foot with Kerlix roll as well as Heribetro bandage The procedure was completed. The patient tolerated procedure well. There were no immediate complications. There was diffuse oozing throughout the procedure so estimated blood loss about 150 cc This was extubated without difficulty and transferred to the recovery room with stable vital signs
[2025-04-01 08:55] VITALS: BP 125/54; PULSE 75; RESP 14; O2SAT 98
[2025-04-01 09:00] VITALS: BP 122/52; PULSE 77; RESP 14; O2SAT 98
[2025-04-01 09:05] VITALS: BP 125/54; PULSE 76; RESP 14; O2SAT 98
[2025-04-01 09:15] VITALS: BP 116/57; PULSE 84; RESP 16; TEMP 36.1; O2SAT 94
== END 2025-04-01 09:35 | disposition home or self-care (01) ==
PROVIDERS: PCP Internal Medicine; Visit Provider Surgery
PROC: (CPT 28810; principal; 2025-04-01 07:30)
DX: M86.171 Other acute osteomyelitis, right ankle and foot (principal); M87.9 Osteonecrosis, unspecified; E11.610 Type 2 diabetes mellitus with diabetic neuropathic arthropathy; E11.42 Type 2 diabetes mellitus with diabetic polyneuropathy; E11.22 Type 2 diabetes mellitus with diabetic chronic kidney disease; I12.9 Hypertensive chronic kidney disease with stage 1 through stage 4 chronic kidney disease, or unspecified chronic kidney disease; N18.30 Chronic kidney disease, stage 3 unspecified; E78.5 Hyperlipidemia, unspecified; Z89.421 Acquired absence of other right toe(s); E66.01 Morbid (severe) obesity due to excess calories; Z68.43 Body mass index [BMI] 50.0-59.9, adult; F32.A Depression, unspecified; Z79.4 Long term (current) use of insulin; Z79.85 Long-term (current) use of injectable non-insulin antidiabetic drugs; Z98.890 Other specified postprocedural states
CPT/HCPCS: 28810; 82947; 88305; 88311; J0690; J2003; J2250; J2405; J2704; J2795; J3010

== ENCOUNTER → 2025-04-01 06:16 | Outpatient (BNV) | payer OTHER, SELFPAY | PROVIDERS: PCP Internal Medicine; Visit Provider Surgery | DX: M86.171 Other acute osteomyelitis, right ankle and foot (principal) | CPT/HCPCS: 28810 ==

== ENCOUNTER → 2025-04-03 10:16 | Outpatient (BNVA) | payer OTHER, SELFPAY | PROVIDERS: PCP Internal Medicine; Visit Provider Surgery | DX: Z48.01 Encounter for change or removal of surgical wound dressing (principal); Z89.421 Acquired absence of other right toe(s) | CPT/HCPCS: 99211 ==

== ENCOUNTER 2025-04-07 08:47 | Outpatient (AMB) | payer OTHER, SELFPAY ==
--- OUTSIDE RECORDS SUMMARY | 2023-12-19 11:15 | XMS_ITS ---
Author Organization [facility] Address [address] [place] [phone] Care Team Providers Care Airplane Dispatcher Name Role Phone Garry Zuleta MD, Edwin Primary Care Provide r Cristofer Owusu Unavailable [phone] Encounters Encounter Location Date Provider Diagnosis [address] [address] 12/19/2023 Cristofer Hilario Plan Of Treatment Next Appt Details Provider Name:Cristofer Hilario , 05/02/2025 12:00:00 PM, [address] [place] [address], [phone], Progress Notes * Dora FERNANDEZDOB:[birth year] (55 yo F)Acc No.[id number]:12/19/2023 Progress Note Patient: Tyler Dora MOSES Provider: Emily Hilario DPM :1970 A ge:53 Y S ex:Female Date:12/19/2023 Address:[address] [place] [address] rosio [id number] Pcp:Edwin Zuleta MD Subjective: * Chief Complaints: [...] 0 12/19/2023 Generated for Joseph Rockwell on: 09:50 AM EDT
--- OUTSIDE RECORDS SUMMARY | 2024-11-05 10:30 | XMS_ITS ---
Author Organization [facility] Address [address] [place] [phone] Care Team Providers Care Oracle Manager Name Role Phone Garry Zuleta MD, Edwni Primary Care Provide r Cristofer Owusu Unavailable [phone] Encounters Encounter Location Date Provider Diagnosis [address] [address] 11/05/2024 Cristofer Hilario Plan Of Treatment Next Appt Details Provider Name:Cristofer Hilario , 05/02/2025 12:00:00 PM, [address] [place] [address], [phone], Progress Notes * Dora FERNANDEZDOB:[birth year] (55 yo F)Acc No.[id number]:11/05/2024 Progress Note Patient: Tyler Dora MOSES Provider: Emily Hilario DPM :1970 A ge:54 Y S ex:Female Date:11/05/2024 Address:[address] [place] [address] [place], [id number] Pcp:Edwin Zuleta MD Subjective: * Chief Complaints: [...] 0 11/05/2024 Generated for Joseph Rockwell on: 09:51 AM EDT
--- OUTSIDE RECORDS SUMMARY | 2025-04-07 09:49 | XMS_ITS | Encounter Summary ---
Author Organization [employer] Address [address] [facility] [address] [place] [address] Care Team Providers Care Assistant Athletic Trainer Name Role Phone Edwin Kirk MD Primary Care Provide r Isa Curry PharmD Unavailable [phone] Reason for Visit * Reason Comments Med Refill Encounter Details Date Type Department Care Team ([facility] st Contact Info) Description 12/26/2023 Refill [facility] MEDICINE [address] [place] [address] Edwin Kirk MD [address], [place] [phone] Diabetic polyneuropathy associated with type 2 diabetes [...] Care Team (Late st Contact Info) Description 04/24/2025 10:00 AM EST Medication Management [facility] MEDICINE [address] [place] [address] Isa Curry PharmD [address] [place] [address] documented as of this encounter Visit Diagnoses Diagnosis Diabetic polyneuropathy associated with type 2 diabetes mellitus (HCC) Low vitamin D level documented in this encounter Care Teams Assistant Athletic Trainer Relationship Specialty Start Date End Date Edwin Kirk MD [address] [place] [id number] PCP - General Internal Medicine 03/31/14 Isa Curry PharmD [address] [place] [phone] Pharmacist Internal Medicine 09/05/24 [employer] 06/27/24 01/23/25 documented as of this encounter
--- OUTSIDE RECORDS SUMMARY | 2025-04-07 09:49 | XMS_ITS | Encounter Summary ---
Author Organization [facility] Address [address] [facility] [address] [place] [address] Care Team Providers Care Hand Knitter Name Role Phone Edwin Kirk MD Primary Care Provide r Isa Curry PharmD Unavailable [phone] Encounter Details Date Type Department Care Team ([facility] st Contact Info) Description 10/12/2023 Orders Only [facility] MEDICINE [address] [place] [address] ProviderChasity MD Social History Tobacco Use Types [...] Description 04/24/2025 10:00 AM EST Medication Management [facility] MEDICINE [address] [place] [address] Isa Curry PharmD [address] [place] [address] documented as of this encounter Procedures Procedure Name Priority Date/Time Associated Diagnosis Comments HM COLONOSCOPY Routine 12/25/2018 7:41 AM EDT documented in this encounter Results * Hm Colonoscopy (12/25/2018 7:41 AM EDT) Historical Provider HEALTH MAINTENANCE Final Result documented in this encounter Visit Diagnoses Not on filedocumented in this encounter Care Teams Hand Knitter Relationship Specialty Start Date End Date Edwin Kirk MD [address] [place] [id number] PCP - General Internal Medicine 03/31/14 Isa Curry PharmD [address] [place] [phone] Pharmacist Internal Medicine 09/05/24 [employer] 06/27/24 01/23/25 documented as of this encounter
--- OUTSIDE RECORDS SUMMARY | 2025-04-07 09:49 | XMS_ITS | Clinical Summary ---
Author Organization [facility] Address [address] [facility] [address] [place] [address] Phone Care Team Providers Care Chief Of Staff Doctor Name Role Phone Edwin Castañeda MD Primary [...] to type 2 diabetes mellitus 0 10/13/2022 Hammer toe 10/13/2022 Hypertension 10/13/2022 Sebaceous cyst 10/13/2022 Type [...] day). Today pt's daughter tells me the Supervisor [employer] Dr Mckeon cancelled the appointment. EKG today shows: sinus arrythmia, peaked T waves. I discussed findings with Cardiology ( Dr. Penaolza in the absence of Dr Mckeon , [...] Dates Next Due Influenza (IM) Preservative Free 11/18/2019,0907/2018 Influenza Split 03/22/2013,03/07/2012 Influenza, Quadrivalent, Pre servative [...] Additional history exists Influenza Vaccine (#1) 2025 , 07/20/2021, 03/13/2020, Additional history exists Pneumococcal Vaccine: [...] % PVNMA 06/23/2020 us [facility] [id number] LICITED RESULTS Final Result PVNMA from Last 3 Months or Most Recently Relevant to Health Maintenance Insurance MCR ([id number]) ALYSA CHAN [id number] [facility] MCR ([id number]) Care Teams Chief Of Staff Doctor Relationship Specialty Start Date End Date Edwin Castañeda MD PCP - General 06/29/20
--- OUTSIDE RECORDS SUMMARY | 2025-04-07 09:50 | XMS_ITS | Clinical Summary ---
Author Organization [employer] Address [address] [place] [address] Care Team Providers Care Subway Repair Supervisor Name Role Phone Edwin Kirk MD Primary Care Provide r Isa Curry PharmD Unavailable [phone] Allergies No known active allergies Medications buPROPion [...] mouth 2 times daily. 023 Active Blood Pressure Monitor kit 1 [...] with long-term current use of insulin (HCC) TAKE 1 TABLET BY MOUTH TWICE DAILY 100 each 025 Active TRUEplus Lancets 33G miscIndications: Type 2 diabetes mellitus with diabetic neuropathic arthropathy, with long-term current use of insulin ([facility]) TEST BLOOD SUGAR TWICE DAILY 100 each 025 Active FREESTYLE LITE test stripIndications :Type 2 diabetes mellitus with diabetic neuropathic arthropathy, with long-term current use of insulin ([facility]) TEST BLOOD SUGAR TWICE DAILY 100 strip 11 025 Active insulin aspart (NovoLOG FLEXPEN) 100 UNIT/ML penIndications:T ype 2 diabetes mellitus with diabetic neuropathic arthropathy, with long-term current use of insulin ([facility]) IN 0 TO 12 UNITS [...] EVERY MORNING 90 capsule 1 025 Active metoprolol succinate XL (Toprol-XL) 25 MG 24 hr tabletIndication s:Benign essential hypertension TAKE 1 TABLET BY MOUTH EVERY EVENING DO NOT BREAK, CRUSH, DISSOLVE OR CHEW 30 tablet 3 025 Active insulin glargine (Toujeo SoloStar) 300 UNIT/ML injectionIndicat ions:Type 2 diabetes mellitus with diabetic neuropathic arthropathy, with long-term current use of insulin ([facility]) INJECT 40 UNITS SUBCUTANEOUSLY AT BEDTIME 4.5 mL 5 025 Active gabapentin (Neurontin) 300 MG capsuleIndicatio ns:Diabetic polyneuropathy associated with type 2 diabetes mellitus ([facility]) TAKE 1 CAPSULE BY MOUTH TWICE DAILY IN THE MORNING AND AT BEDTIME 60 capsule 025 Active Embecta Pen Needle Tonja 32G X 4 MM misc USE DIRECTED TO TEST BLOOD SUGAR FOUR TIMES DAILY 100 each 025 Active Tirzepatide (Mounjaro) 7.5 MG/0.5ML solution auto-injectorInd ications:Type 2 diabetes mellitus with diabetic neuropathic arthropathy, with long-term current use of insulin ([facility]) Inject 7.5 mg under the skin 1 (one) time per week. 2 mL 1 025 Active Blood Glucose Monitoring Suppl (FreeStyle Lite) w/Device kit 1 Device before breakfast, before lunch, and before evening meal. 1 kit 025 Active eszopiclone (Lunesta) 3 MG tablet Take 1 tablet by mouth if needed at bedtime. 023 2024 Discontinued(M ed list cleanup (will not trigger notification to Pharmacy)) Blood Glucose Monitoring Suppl (FreeStyle Lite) w/Device kit 1 Device before breakfast, before lunch, and before evening meal. 1 kit 023 2024 Discontinued(R eorder (will not trigger notification to Pharmacy)) Pentips 32G X 4 MM misc USE DIRECTED FOUR TIMES DAILY 100 each 11 024 2024 Discontinued gabapentin (Neurontin) 300 MG capsuleIndicatio ns:Diabetic polyneuropathy associated with type 2 diabetes mellitus (HCC) TAKE 1 CAPSULE BY MOUTH TWICE DAILY IN THE MORNING AND AT BEDTIME 60 capsule 025 2024 Discontinued(R eorder (will not trigger notification to Pharmacy)) Tirzepatide (Mounjaro) 5 MG/0.5ML solution auto-injectorInd ications:Type 2 diabetes mellitus with diabetic neuropathic arthropathy, with long-term current use of insulin ([facility]) Inject 5 mg under the skin 1 (one) time per week. 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 84 tablet 025 2024 Active Problems Problem Noted Date Diagnosed Date Osteomyelitis of fifth toe of right foot (CMS/HC C) 03/27/2025 Assessment & Plan (03/27/2025 9:58 AM EDT): Recently seen on MRI Under the care of Dr gwendolyn Mathis general surgeon Last seen 03/13/2025 She has a nonhealing ulcer of the lateral aspect of the right forefoot with an MRI showing suggestion of osteomyelitis of the 5th toe as well as the distal 3rd of the metatarsal. Per Dr Mathis note: She wants to proceed with amputation. This will be a ray amputation of the 5th toe starting from the distal 3rd metatarsal on the right. Ulcer of right foot with necrosis of muscle 06/20 Overview (07/17/2024): Admitted [facility] (06/24/2024 - 06/26/2024) for right foot wound [...] hours for 7 day Patient followed with [facility] general surgeons 07/08/2024 Dr. Lim recommending follow [...] & Plan (07/17/2024 9:37 AM EST): Admitted [facility] (06/24/2024 - 06/26/2024) for right foot wound [...] hours for 7 day Patient followed with [facility] general surgeons 07/08/2024 Dr. Lim recommending follow [...] Morbid obesity with BMI of 50.0-59.9, adult ([facility]) 01/09/2024 Assessment & Plan (10/10/2024 [...] Preventative health care 10/25/2022 Assessment & Plan (03/27/2025 9:59 AM EDT): Mammogram: NL : 03/20/2025 Pap Smear: 512 s/p ALYSSA Colonoscopy: 12/25/2018, She was supposed to have a repeat in 1 year due to poor prep. She was seen by GI 06/14/2024 and Repeat colonoscopy was recommended shceduled for 10/22/2024. Pt missed appointment daughter promised to call and rescheduled Assessment & Plan (01/09/2025 12:08 PM EDT): [...] to poor prep. She was seen by 06/14/2024 and Repeat colonoscopy was recommended shceduled for 10/22/2024 Assessment & Plan (01/09/2024 11:56 AM EDT): Mammogram: NL : 09/04/2023 Pap Smear: 12 s/p ALYSSA Colonoscopy: 12/25/2018, She was supposed to have a repeat in 1 year due to poor prep will refer back Assessment & Plan (10/25/2022 1:10 PM EDT): Mammogram: NL : 08/30/2021 Pap Smear: 512/12 s/p ALYSSA Colonoscopy: 12/25/2018, She was supposed [...] EDT): Televisit Underwent extensive cardiac evaluation by Digital Production Manager nuclear stress test done on 09/02/2022 [...] day). Today pt's daughter tells me the Digital Production Manager Dr Mckeon cancelled the appointment. EKG [...] to type 2 diabetes mellitus 0 08/08/2022 Assessment & Plan (03/27/2025 10:18 AM EDT): Diabetic polyneuropathy present, related to longstanding diabetes. - Will continue to monitor neuropathic symptoms and provide supportive care. Cholelithiasis without obstruction 08/08/2022 Proteinuria 10/19/2020 Anemia of chronic disease 10/19/2020 Depressive disorder 11/06/2012 Type 2 diabetes mellitus wit h diabetic neuropathic arthropathy, with long-term current use of insulin 08/14/2012 Overview (07/17/2024): Pharmacotherapy: Updated 07/17/24 - Toumargarita solostar - Was increased from 48 to [...] Dental Exam: >6 months Recent hospitalization at [facility] 06/24/2024 - 06/26/2024. Saw CDTM on 07/09/24 [...] of Ozempic since 12/2023 Assessment & Plan (03/27/2025 10:13 AM EDT): Pt here for a f/u regarding her DM She used to be under the care of Endocrinology, last seen 04/05/2022, She is on Toujeo 40 units sc q pm (once a day bedtime) Novolog 14-20 units per Sliding scale before meals and Mounjaro 7.5 weekly Hgb A1c 03/27/2025: 7.6 from 7.2 Eye exam done on: 07/23/[address] Purvis Microalbumin checked on: 01/27/2025 was: 17 Pt on an TEO inhibitor. Foot check shows Charcot's foot Plan: Continue following with our CDTM team as well Pt reports compliance with Asa 81 mg po daily Pt advised to: adhere to diabetic diet check your blood sugars regularly check your feet on a daily basis. F/u 12 weeks Assessment & Plan (01/09/2025 12:07 PM EDT): [...] Dental Exam: >6 months Recent hospitalization at [facility] 06/24/2024 - 06/26/2024. Saw CDTM on 07/09/24 [...] daily basis. Obesity 06/25/2012 Assessment & Plan (03/27/2025 10:02 AM EDT): Patient has been counseled and educated about diet and exercise. Personal goal of weight loss discussedPatient has comorbidity of: DM, HTN, Pt previously was given the information about the Comprehensive weight management program Assessment & Plan (08/09/2022 1:28 PM EST): Patient has been counseled and educated about diet and exercise. Personal goal of weight loss discussedPatient has comorbidity of: DM, HTN, Pt has the information about the Comprehensive weight management program Mixed hyperlipidemia 06/19/1961 Assessment & Plan (03/27/2025 10:01 AM EDT): Patient here for a f/u Most recent lipid profile from: Lab Results Component Value Date TRIG 64 01/27/2025 TRIG 74 10/30/2023 CHOL 134 01/27/2025 CHOL 122 10/30/2023 LDLCHOLCAL 61 01/27/2025 LDLCHOLCAL 59 10/30/2023 HDL 61 01/27/2025 HDL 49 10/30/2023 Currently on a regimen of: Atorvastatin 40 mg po qhs. . Lipids are at target For now will continue with current regimen. Patient encouraged to come up with a personal goal for weight loss. Assessment & Plan (10/25/2022 12:57 PM EDT): [...] required at this time. Assessment & Plan (03/27/2025 10:03 AM EDT): Used to be under the care of Nephrology, last note 10/13/2022 Lab Results Component Value Date NA 142 01/27/2025 NA 132 (L) 06/24/2024 K 4.5 01/27/2025 K 4.2 06/24/2024 CL 102 01/27/2025 CL 97 06/24/2024 BUN 28 (H) 01/27/2025 BUN 20 (H) 06/24/2024 CREATININE 1.35 01/27/2025 CREATININE 1.55 (H) 06/24/2024 Assessment & Plan (01/09/2024 11:52 AM EDT): [...] Date Diagnosed Date Resolved Date Acute osteomyelitis ([facility]) 01/10/2023 01/09/2024 Assessment & Plan (01/26/2023 10:23 [...] right foot limited to breakdown of skin (CMS/HCC) 08/08/2022 01/09/2024 Encounters Date Type Department Care Team Description 04/04/2025 Refill [facility] [address] [place] [address] Isa Curry, Vinod Type 2 diabetes mellitus with diabetic neuropathic arthropathy, with long-term current use of insulin ([facility]) 04/02/2025 Refill [facility] [address] [place] [address] Edwin Kirk MD 04/01/2025 Telephone [facility] [address] [place] [address] Edwin Kirk MD 04/01/2025 Orders Only GENERIC EXTERNAL DATA DEPARTMENT Provider, Generic External Data 03/27/2025 10:00 AM EDT Office Visit [facility] [place] [address] Edwin Kirk MD Osteomyelitis of fifth toe of right foot (CMS/HCC) (HCC) (Primary Dx); Preventative health care; Mixed hyperlipidemia; Class 3 severe obesity due to excess calories with serious comorbidity and body mass index (BMI) of 50.0 to 59.9 in adult (HCC); Stage 3a chronic kidney disease (CMS/HCC) (HCC); Polyneuropathy due to type 2 diabetes mellitus (HCC); Type 2 diabetes mellitus with diabetic neuropathic arthropathy, with long-term current use of insulin (HCC) 03/27/2025 Telephone [facility] [place] [address] Edwin Kirk MD Durable Medical Equipment 03/27/2025 Travel 03/26/2025 Telephone [facility] [place] [address] Edwin Kirk MD chartprep 03/20/2025 Travel 03/14/2025 Refill [facility] [address] [place] [address] Edwin Kikr MD 03/14/2025 Refill [facility] [address] [place] [address] Edwin Kirk MD Diabetic polyneuropathy associated with type 2 diabetes mellitus (CMS/HCC) 03/07/2025 Refill [facility] [address] [place] [address] Isa Curry PharmD Type 2 diabetes mellitus with diabetic neuropathic arthropathy, with long-term current use of insulin (CMS/HCC) 03/06/2025 Orders Only [facility] External Provider, [facility] 03/05/2025 Refill [facility] [address] [place] [address] Luh Weston MD Benign essential hypertension 02/13/2025 Telephone [facility] [address] [place] [address] Franklin Edwards MD MRI FOOT 02/06/2025 Telephone [facility] [address] [place] [address] Tram Merritt RN Results 02/06/2025 Orders Only [facility] [address] [place], [place] [id number] Franklin Edwards MD Ulcer of right foot with necrosis of muscle ([facility]/HCC) (Primary Dx) 02/06/2025 Orders Only [facility] [address] [place] [address] Edwin Kirk MD 02/06/2025 Travel 01/16/2025 Refill [facility] [address] [place] [address] Edwin Kirk MD Low vitamin D level 01/09/2025 11:30 AM EDT Office Visit [facility] [address] [place] [address] Edwin Kirk MD Type 2 diabetes mellitus with diabetic neuropathic arthropathy, with long-term current use of insulin (CMS/HCC) (Primary Dx); Diabetic polyneuropathy associated with type 2 diabetes mellitus (CMS/HCC); Benign essential hypertension; Heartburn; Breast cancer screening by mammogram; Preventative health care 01/09/2025 Travel 01/06/2025 Refill [facility] [address] [place], [place] [phone] Edwin Kirk MD Diabetic polyneuropathy associated with [...] free 03/20/2025,07/18/2024,11/18/2019,02/18 Pfizer Covid-19 Vaccine 12+ 03/20/2025, 5 Pneumococcal Conjugate PCV 20 01/09/2024 Pneumococcal Polysaccharide [...] Date Recorded Patient Health Questionnaire-9 Score 12 03/27/2025 Patient Health Questionnaire-9 Score 12 03/27/2025 Last PHQ-9: Questionnaire Data Not on file 1 Housing Stability Answer Date Recorded What is [...] Date Recorded Patient Health Questionnaire-2 Score 4 03/27/2025 Internet Access Answer Date Recorded Internet Access [...] Sign Reading Time Taken Comments Blood Pressure 126/72 03/27/2025 10:05 AM EDT Pulse 73 03/27/2025 10:05 AM EDT Temperature 35.9 C (96.6 F) 03/27/2025 10:05 AM EDT Respiratory Rate 18 03/27/2025 10:05 AM EDT Oxygen Saturation 97% 03/27/2025 10:05 AM EDT Inhaled Oxygen Concentration - - Weight 156 kg (343 lb) 03/27/2025 10:05 AM EDT Height 175.3 cm (5' 9 ) 03/27/2025 10:05 AM EDT Body Mass Index 50.65 03/27/2025 10:05 AM EDT Plan of Treatment Upcoming Encounters Date Type Department Care Team (Late st Contact Info) Description 04/24/2025 10:00 AM EST Medication Management [facility] [address] [place] [address] Isa Curry, PharmD [address] [place] [address] Health Maintenance Due Date Last Done Comments CT Colonography 1968 FIT DNA/Cologuard 1968 FIT 1968 FOBT 1970 HIV Screening 1970 Sigmoidoscopy 1968 Diabetes: Foot Exam 1978 DTaP/Tdap/Td Vaccines (1 - Tdap) 04/27/2016 04/26/2016, 11/23/2005 Colonoscopy 12/26/2019 12/25/2018 Colorectal Cancer Screening 12/26/2019 Diabetes: Hemoglobin A1C 06/27/2025 025, 02/06/2025, 01/09/2025, Additional history exists Alcohol/Substance Use Screening 07/17/2025 07/17/2024 SDOH Screening 07/17/2025 07/17/2024 Depression Monitoring 09/25/2025 03/27/2025, 025 Diabetes: Urine Protein Screening 01/27/2026 01/27/2025, 01/09/2024, 09/06/2022, Additional history exists Lipid Panel 01/27/2026 01/27/2025, 10/17, 02/25/2022, Additional history exists Mammogram 03/19/2026 03/19/2025, 08/17, 08/30/2021, Additional history exists Disability Screening 03/27/2026 03/27/2025 Tobacco Screening 03/27/2026 03/27/2025 Eye Exam 07/04/2026 07/04/2024, 06/19, 07/04/2024, Additional history exists RSV Patients and Patients Aged 60 years or older (1 - 1-dose 75+ series) 2043 Hepatitis C Screening Completed 02/25/2022 Pneumococcal Vaccine: 50+ Years Completed 01/09/2024, 02/23/2017, 02/22/2006 Zoster Vaccines Completed 10/10/2024, 07/18/2024 Hepatitis B Vaccines Completed 12/12/2024, 09/06/19 25 COVID-19 Vaccine Completed 03/20/2025, , 05/24/2021, Additional [...] Procedure Name Priority Date/Time Associated Diagnosis Comments GROSS AND MICROSCOPIC LEVEL 4 Routine 04/01/2025 8:05 AM EDT GLUCOSE, WHOLE BLOOD Routine 04/01/2025 6:38 AM EDT POCT GLUCOSE Routine 03/27/2025 10:09 AM EDT Polyneuropathy due to type 2 diabetes mellitus (HCC) POCT GLYCOSYLATED HEMOGLOBIN (HGB A1C) Routine 03/27/2025 10:08 AM EDT Polyneuropathy due to type 2 diabetes mellitus (HCC) BI MAMMOGRAM SCREENING TOMOSYNTHESIS BILATERAL Routine 03/19/2025 [...] Recently Relevant to Health Maintenance Results * Gross and Microscopic Level 4 (04/01/2025 8:05 AM EDT) 04/01/2025 8:05 AM EDT 04/01/2025 9:35 AM EDT [facility] - 04/04/2025 1:36 PM EDT ----- ------- Name: Dora Fernandez Age/Sex: 55/F : 1970 Unit#: [id number] Attend Dr: Gwendolyn Lim MD Re04/01/25 Status: [facility] Location: HO.SSS Disch: ----- ------- SPEC : [id number] RECD: 04/01/25 STATUS: CHIDI SRINIVASAN NUM: [id number] RYAN: 04/01/[address] [facility] [address]: Gwendolyn Lim MD ENTERED: 04/01/25 TYPE: Surgical OTHR DR: Edwin Benitez MD ORDERED: Gross Micro L4, Decal Diagnosis Toe, right fifth, amputation: - Acute osteomyelitis; osteonecrosis. - Soft tissue gangrenous necrosis. See comment. Comment: No acute inflammation is seen at the margin. Clinical History Osteomyelitis, unspecified Microscopic Description Microscopic sections reviewed. Material Received Right 5th toe Gross Description Received in formalin is a 9.7 x 4.0 x 2.7 cm amputated digit, transected through the bone with a smooth bone resection margin. There is an additional 2.0 cm of the proximal soft tissue. The white skin is diffusely thickened and sloughing and there is a 1.8 x 1.9 cm ulcerated defect, measuring 4.0 cm from the soft tissue resection margin. A 1.0 x 0.6 cm grossly unremarkable toenail is present. Also present within the specimen container are 2 unoriented portions of bone with associated soft tissue, measuring 2.5 and 3.0 cm in greatest dimension. On sectioning the bone is slightly softened, without additional abnormalities. Rn Invasive sections are submitted to include commercial sales representative soft tissue resection margin in cassette A1, bone resection margin in A2, area of skin ulcer in A3, bone underlying ulcer in A4 and commercial sales representative detached fragments of bone in A5 (cassettes 2, 4 and 5 following decalcification per order of Dr. Phillip). (DTL) IHC S/NG Disclaimer NOTE: Unless otherwise stated, all tissue is formalin-fixed and paraffin-embedded. Some or all of the immunohistochemical tests reported herein may have been developed and their performance characteristics determined by [facility]. They have not been cleared or approved by the U.S. Food and Drug Administration (FDA). However, the FDA has determined that such clearance or approval is not necessary. This laboratory is certified under the Clinical Laboratory Improvement Amendments of 1988 (CLIA) as qualified to perform high complexity clinical laboratory testing. CONTINUED ON NEXT PAGE ----- ------- Name: Dora Fernandez Age/Sex: 55/F : 1970 Unit#: [id number] Attend Dr: Gwendolyn Lim MD Re04/01/25 Status: [facility] Location: [facility] Disch: ----- ------- SPEC : [id number] RECD: 04/01/25 STATUS: CHIDI SRINIVASAN NUM: [id number] RYAN: 04/01/[address] [facility] [address]: Gwendolyn Lim MD ENTERED: 04/01/25 SP TYPE: Surgical OTHR DR: Edwin Benitez MD ORDERED: Gross Micro L4, Decal Copies To: Edwin Benitez MD [facility] [address] [place] [address] Gwendolyn Lim MD [facility] Surgeons [address] [place] [address] ----- ------- Signed (signature on file) Shekhar Phillip MD 04/04/25 1336 ----- ------- END OF REPORT us Generic External Data Provider LAB CYTOLOGY ELSIE SHETH Final Result [facility] [address] [place] [address] [phone] * (ABNORMAL) Glucose, Whole Blood (04/01/2025 6:38 AM EDT) Glucose, Whole Blood 138(H) 60 - 115 mg/dL [facility] Comment:METER #: [id number] 04/01/2025 6:38 AM EDT 04/01/2025 6:43 AM EDT Generic External Data Provider LAB BLOOD ORDERAB LES Final Result [facility] [address] [place] [address] [phone] * POCT glucose manually resulted (03/27/2025 10:09 AM EDT) Only the most recent of2 resultswithin the time period is included. Glucose Blood, POC 159 60 - 200 mg/dL QC Media Lot # [id number] Lot# Expiration Date 2,,026 Blood Capillary blood specimen / Unknown 03/27/2025 10:09 AM EDT Edwin Zuleta MD POINT OF CARE TEST EN TER/EDIT ORDERABLES Final Result * (ABNORMAL) POCT glycosylated hemoglobin (Hgb A1c) (03/27/2025 10:08 AM EDT) Hemoglobin A1C 7.6(A) 4.0 - 5.7 % QC Media Lot # [id number] Lot# Expiration Date 5,[id number] Blood Capillary blood specimen / Unknown 03/27/2025 10:08 AM EDT Edwni Zuleta MD POINT OF CARE TEST EN TER/EDIT ORDERABLES Final Result * BI Mammogram Screening Tomosynthesis Bilateral (03/19/2025 2:56 PM EDT) Anatomical Region Laterality Modality Breast Bilateral Mammography 03/19/2025 2:56 PM EDT Narrative 03/20/2025 8:46 AM EDT [facility] [address] [place] [address] Mammography Report Signed Patient: Dora Fernandez MR#: [id number] 005 : 1970 Acct:[id number] Age/Sex: 55 / F ADM Date: 03/19/25 Loc: HO.MAMMO Attending Dr: Edwin Benitez MD Ordering Physician: Edwin Benitez MD Resu lts: 1Negative Date of Service: 03/19/25 Follow Up: 1 Year From Orig ina Mammogram Procedure(s): MM tomosynthesis screening BI Accession Number(s): [id number] cc: Edwin Benitez MD Reason For Exam: [...] 03/20/25 0843 DD/ 1456 TD/TT: 03/19/25 1518 Rehabilitation Caseworker: Procedure Note Donsurinderter, Image - 03/20/2025 [facility] [address] [place] [address] Dr. [place], [place]ENEE [address] Mammography Report Signed Patient: Dora FernandezMR#: [id number] 005 : 1970Acct:[id number] Age/Sex: 55 / FADM Date: 03/19/25 Loc: HO.MAMMO Attending Dr: Edwin Benitez MD Ordering Physician: Edwin Benitez MDResu lts: 1Negative Date of Service: 03/19/25Follow Up: 1 Year From Orig ina Mammogram Procedure(s): MM tomosynthesis screening BI Accession Number(s): [id number] cc: dEwin Benitez MD Reason For Exam: screening EXAMINATION: [...] 03/20/25 0843 DD/ 1456 TD/TT: 03/19/25 1518 Rehabilitation Caseworker: us Edwin Zuleta MD IMG BI PROCEDURES Miguelito hector Result - Final * MR Foot w/ and w/o Contrast Right (03/06/2025 8:30 AM EDT) Anatomical Region Laterality Modality Lower Extremities, Foot Right Magnetic Resonance 03/06/2025 8:30 AM EDT Narrative 03/06/2025 3:29 PM EDT [address] [address] Magnetic Resonance Report Signed Patient: Dora Fernandez MR#: [id number] 005 : 1970 Acct:[id number] Age/Sex: 54 / F ADM Date: 03/06/25 Loc: HO.MRI Attending Dr: Marlene Tiwari MD Ordering Physician: Marlene Tiwari MD Date of Service: 03/06/25 Procedure(s): MR foot RT wo/w con Accession Number(s): [id number] cc: Franklin Edwards MD; Marlene Tiwari MD; [...] 03/06/25 1527 DD/ 0830 TD/TT: 03/06/25 0911 Rehabilitation Caseworker: Procedure Note Donotuseinterpreter, Image - 03/06/[address] [address] Magnetic Resonance Report Signed Patient: Dora FernandezMR#: [id number] 005 : 1970Acct:[id number] Age/Sex: 54 / FADM Date: 03/06/25 Loc: HO.MRI Attending Dr: Marlene Tiwari MD Ordering Physician: Marlene Tiwari MD Date of Service: 03/06/25 Procedure(s): MR foot RT wo/w con Accession Number(s): [id number] cc: Franklin Edwards MD; Marlene Tiwari MD; [...] 03/06/25 1527 DD/ 0830 TD/TT: 03/06/25 0911 Rehabilitation Caseworker: [facility] External Provider IMG MRI PROCEDURES Final Result * XR Foot 3+ Views Right (02/06/2025 11:50 AM EDT) Anatomical Region Laterality Modality Lower Extremities, Foot Right Radiogra phic Imaging 02/06/2025 11:5 0 AM EDT Narrative 02/06/2025 12:41 PM EDT [address] [address] XRay Report Signed Patient: Dora Fernandez MR#: [id number] 005 : 1970 Acct:[id number] Age/Sex: 54 / F ADM Date: 02/06/25 Loc: HO.HHCL Attending Dr: Edwin Benitez MD Ordering Physician: Edwin Benitez MD Date of Service: 02/06/25 Procedure(s): XR foot RT min 3V Accession Number(s): [id number] cc: Edwin Benitez MD EXAMINATION: XR FOOT, [...] 02/06/25 1238 DD/ 1150 TD/TT: 02/06/25 1156 Rehabilitation Caseworker: Procedure Note Donotuseinterpreter, Image - 02/06/2025 [place] [address] XRay Report Signed Patient: Dora Fernandez#: [id number] 005 : 1970Acct:[id number] Age/Sex: 54 / FADM Date: 02/06/25 Loc: HO.HHCL Attending Dr: Edwin Benitez MD Ordering Physician: Edwin Benitez MD Date of Service: 02/06/25 Procedure(s): XR foot RT min 3V Accession Number(s): [id number] cc: Edwin Benitez MD EXAMINATION: XR FOOT, [...] 02/06/25 1238 DD/ 1150 TD/TT: 02/06/25 1156 Rehabilitation Caseworker: us Edwin Zuleta MD IMG XR PROCEDURES Fin al Result * Calcitonin (02/06/2025 11:23 AM EDT) Calcitonin (Thyrocalcitonin) <2 <=5 pg/mL [facility] Comment:This test was perfor med using the SiemensChemiluminescent method. Values obtained withdifferent assay methods cannot be used interchangeably.Calcitonin levels, regardless of value, should not beinterpreted as absolute evidence of the presence orabsence of the disease.THIS TEST WAS PERFORMED AT:[employer]/CARTY [id number] [place] [address]YSJOJXOALEXANDER CUETO MD,PHD 02/06/2025 11:2 3 AM EDT 02/06/2025 12:56 PM EDT us Generic External Data Provider LAB BLOOD ORDERAB LES Final Result [facility] [address] [place] [address] [place] [phone] * (ABNORMAL) CBC auto differential (02/06/2025 11:13 AM EDT) White Blood Count 6.6 4.8 - 10.8 X10*3/uL [facility] Red Blood Count 4.26 4.20 - 5.50 X10*6/uL [facility] Hemoglobin 11.6(L) 12.0 - 16.0 g/dl [facility] Hematocrit 35.6(L) 37.0 - 47.0 % [facility] Mean Corpuscular Volume 83.6 80.0 - 98.0 fL [facility] Mean Corpuscular Hemoglobin 27.2 27.0 - 33.0 pg [facility] Mean Corpuscular HGB Conc 32.6 31.0 - 35.0 g/dl [facility] Red Cell Distribution Width 13.1 11.0 - 16.0 % [facility] Platelet Count 265 160 - 400 X10*3/uL [facility] Mean Platelet Volume 11.7 9.4 - 12.3 fL [facility] Neutrophils Percent Auto 55.6 45 - 73 % [facility] Imm Gran Pct Auto 0.6(H) 0.0 - 0.4 % [facility] Lymphocytes Percent Auto 26.4 20 - 40 % [facility] Monocytes Percent Auto 8.6 2 - 11 % [facility] Eosinophils Percent Auto 8.0(H) 0 - 4 % [facility] Basophils Percent Auto 0.8 0 - 2 % [facility] NRBC Pct Auto 0.0 0.0 - 0.2 /100WBC [facility] Neutrophils Absolute Auto 3.7 2.0 - 8.3 x10*3/uL [facility] Imm Gran Abs Auto 0.04(H) 0.00 - 0.03 X10*3/uL [facility] Lymphocytes Absolute Auto 1.7 1.2 - 4.9 X10*3/uL [facility] Monocytes Absolute Auto 0.6 0.1 - 1.2 X10*3/uL [facility] Eosinophils Absolute Auto 0.5(H) 0.0 - 0.4 X10*3/uL [facility] Basophils Absolute Auto 0.1 0.0 - 0.2 X10*3/uL [facility] NRBC Abs Auto 0.000 0.0 - 0.012 X10*3/uL [facility] 02/06/2025 11:1 3 AM EDT 02/06/2025 12:56 PM EDT us Generic External Data Provider LAB BLOOD ORDERAB LES Final Result Performing Organization Address City/[facility]/ZIP Co de Phone Number [facility] [address] [place] [address] [phone] * (ABNORMAL) Sed Rate by Modified Domenicoren (02/06/2025 11:13 AM EDT) Erythrocyte Sedimentation Rate 21(H) 0 - 20 MM/HR [facility] Comment:Patients with polycy themia and many hemoglobin abnormalitiesmay have depressed sed rates whereas patients with anemiamay have elevated sed rates. 02/06/2025 11:1 3 AM EDT 02/06/2025 12:56 PM EDT us Generic External Data Provider LAB BLOOD ORDERAB LES Final Result Performing Organization Address City/[facility]/ZIP Co de Phone Number [facility] [address] [place] [address] [phone] * (ABNORMAL) C-reactive Protein (02/06/2025 11:13 AM EDT) C Reactive Protein 2.66(H) < or = 0.50 mg/dL [facility] 02/06/2025 11:1 3 AM EDT 02/06/2025 12:56 PM EDT us Generic External Data Provider LAB BLOOD ORDERAB LES Final Result Performing Organization Address City/[facility]/ZIP Co de Phone Number [facility] [address] [place] [phone] * (ABNORMAL) Hemoglobin A1c (02/06/2025 11:13 AM EDT) Hemoglobin A1c 7.2(H) <6.0 % [facility] Comment:Hemoglobin A1C Refer ence Range Adults: 4.8 - 6.0 % Non diabetic: < 6.0 % Goal: < 7.0 %Additional Action Suggested: > 8.0 %Note: Hemoglobin A1c results are invalid for patients with abnormal amounts of HbF. Blood transfusions may impact the HbA1c concentration in the patient sample. Estimated Average Glucose 160 mg/dL [facility] Comment:eAG = Estimated ave rage glucose which is %A1C expressed asaverage glucose, using the formula of the Q3W-XuqeyfcZzirjoi Glucose study (ADAG), Diabetes Care, Vol.31,#8,2007 02/06/2025 11:1 3 AM EDT 02/06/2025 12:56 PM EDT us Generic External Data Provider LAB BLOOD ORDERAB LES Final Result Performing Organization Address [facility] de Phone Number [facility] [address] [place] [phone] * Albumin, Random Urine W/Creatinine (01/27/2025 9:31 AM EDT) Creatinine, Urine 168.19 mg/dL [facility] Microalbumin Urine 17.0 mg/L [facility] Microalbum Creatinine Ratio Ur 10.1 <30 ug/mg cr [facility] Comment:Albumin/Creatinine R atio Reference Ranges: Normal: < 30 ug/mg creatinine Microalbuminuria: 30 - 300 ug/mg creatinineClinical Albuminuria: > 300 ug/mg creatinine Urine (Urine, Random) 01/27/2025 9:31 AM EDT 01/27/2025 11:14 AM EDT us Edwin Zuleta MD LAB URINE ORDERABLES Final Result Performing Organization Address [facility] Co de Phone Number [facility] [address] [place] [address] [phone] * Lipid Panel, Standard (01/27/2025 9:31 AM EDT) Triglycerides 64 <150 mg/dL [facility] Comment:Desirable Triglyceri de: less than 150 mg/dLBorderline High Triglyceride 150-199 mg/dLHigh Triglyceride: 200-499 mg/dLVery High Triglyceride: greater than or equal to 5OO mg/dL Cholesterol 134 <200 mg/dL [facility] Comment:Desirable Cholestero l: less than 200 mg/dLBorderline High Cholesterol: 200-239 mg/dLHigh Cholesterol: greater than 239 mg/dL LDL Cholesterol Calculated 61 <100 mg/dL [facility] Comment:Desirable LDL: less than 100 mg/dLNear Optimal/Above Optimal LDL: 110- 129 mg/dLBorderline High LDL: 130-159 mg/dLHigh LDL: 160-189 mg/dLVery High LDL: greater than or equal to 190 mg/dL HDL Cholesterol 61 >40 mg/dL [facility] Comment:Desirable HDL: great er than 40 mg/dL Note: This HDL assay may give artificially low results in patients with liver disease. Blood Venous blood specimen / Unknown 01/27/2025 9:31 AM EDT 01/27/2025 11:22 AM EDT us Edwin Zuleta MD LAB BLOOD ORDERABLES Final Result Performing Organization Address City/[facility]/ZIP Co de Phone Number [facility] [address] [place] [address] [phone] * (ABNORMAL) Comprehensive Metabolic Panel (01/27/2025 9:31 AM EDT) Sodium 142 135 - 145 mmol/L [facility] Potassium 4.5 3.3 - 5.1 mmol/L [facility] Chloride 102 96 - 108 mmol/L [facility] Carbon Dioxide 31(H) 22 - 29 mmol/L [facility] Anion Gap 14 12 - 20 [facility] Urea Nitrogen (BUN) 28(H) 9 - 16 mg/dL [facility] Creatinine, Serum 1.35 0.5 - 1.4 mg/dL [facility] Estimated Glomerular Filt Rate 41 [facility] Comment:Chronic Kidney Disea se: Estimated GFR < 60 mL/min/1.66c3Ytluox Kidney Disease: Estimated GFR < 15 mL/min/1.73m2 Glucose 108 60 - 115 mg/dL [facility] Calcium 9.3 8.4 - 10.2 mg/dL [facility] Bilirubin, Total 0.3 0.0 - 1.0 mg/dL [facility] Aspartate Amino Transferase 27 5 - 31 U/L [facility] Alanine Aminotransferase 17 0 - 31 U/L [facility] Total Protein 8.1(H) 6.5 - 8.0 g/dL [facility] Albumin Level 4.3 3.5 - 5.0 g/dL [facility] Alkaline Phosphatase 103 39 - 117 U/L [facility] Blood Venous blood specimen / Unknown 01/27/2025 9:31 AM EDT 01/27/2025 11:22 AM EDT Edwin Zuleta MD LAB BLOOD ORDERABLES Final Result [facility] [address] [place] [phone] * (ABNORMAL) POCT HGB A1C (01/09/2025 12:05 PM EDT) Hemoglobin A1C 7.2(A) 4.0 - 5.7 % QC Media Lot # [id number] Lot# Expiration Date ,836 Blood 01/09/2025 12:0 5 PM EDT Edwin Zuleta MD POINT OF CARE TEST EN TER/EDIT ORDERABLES Final Result * HEPATITIS C AB W/REFL TO HCV RNA, QN, PCR (02/25/2022 9:25 AM EDT) HEPATITIS C ANTIBODY NON-REACT REMI NON-REACT REMI [facility] INDEX 0.08 <1.00 [facility] Comment: HCV antibody was non-reactive. There is no laboratory evidence of HCV infection. In most cases, no further action is required. However, if recent HCV exposure is suspected, a test for HCV RNA (test code 72263) is suggested. For additional information please refer to http://education.[employer]/faq/HMN73h2 (This link is being provided for informational/ educational purposes only.) 02/25/2022 9:25 AM EDT Edwin Zuleta MD HISTORICAL/NON ORDERA BLE LABS Final Result [facility] Anywhere [address] * Hm Colonoscopy (12/25/2018 7:41 AM EDT) Historical Provider HEALTH MAINTENANCE Final Result from Last 3 Months or Most Recently Relevant to Health Maintenance Insurance [facility] < 65 ALYSA CHAN [id number] Care Teams Subway Repair Supervisor Relationship Specialty Start Date End Date Edwin Kirk MD [address] [place] [address] PCP - General Internal Medicine 03/31/14 Isa Curry PharmD [address] [place] [phone] Pharmacist Internal Medicine 09/05/24
--- OUTSIDE RECORDS SUMMARY | 2025-04-07 09:50 | XMS_ITS | Encounter Summary ---
Author Organization [employer] Address [address] [facility] 7 [place] [address] Care Team Providers Care Protection Agent Name Role Phone Edwin Kirk MD Primary Care Provide r Isa Curry PharmD Unavailable [phone] Reason for Visit * Reason Comments Med Refill Encounter Details Date Type Department Care Team ([facility] st Contact Info) Description 12/26/2023 Refill [facility]INE [address] [place] [address] Annmarie Brewster MD [address] [place] [address] Heartburn Social History Tobacco Use Types Packs/Day [...] 10:00 AM EST Medication Management [facility]INE [address] [place], [place] [phone] Isa Curry, PharmRadha [address] [place] [address] documented as of this encounter Visit Diagnoses Diagnosis Heartburn documented in this encounter Care Teams Protection Agent Relationship Specialty Start Date End Date Edwin Kirk MD [address] [place] [address] [phone] PCP - General Internal Medicine 03/31/14 Isa Curry, PharmD [address] [place] [phone] Pharmacist Internal Medicine 09/05/24 [employer] 06/27/24 01/23/25 documented as of this encounter
--- OUTSIDE RECORDS SUMMARY | 2025-04-07 09:50 | XMS_ITS | Encounter Summary ---
Author Organization 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) Procedures MR Foot w/ and w/o Contrast Right Franklin [place] MD [address] [place] [address] Phone: tel: fax: [address] Phone: tel: fax: Referral ID Status Reason Start Date Expiration Date V isits Requested Visits Authorized [id number] Canceled 02/06/2025 02/06/2026 1 1 Encounter Details Date Type Department Care Team (Late st Contact Info) Description 02/06/2025 Orders Only [facility] [address] [place], [place] [phone] Franklin [place] MD [address] [place], [place] [phone] Ulcer of right foot with necrosis of [...] Description 04/24/2025 10:00 AM EST Medication Management [facility] [address] [place] [address] Isa Curry, PharmD [address] [place], [place] [phone] Scheduled Orders Name Type Priority Associated Diagnoses [...] AM EDT) Calcitonin (Thyrocalcitonin) <2 <=5 pg/mL [facility] Comment:This test was perfor med using the SiemensChemiluminescent method. Values obtained withdifferent assay methods cannot be used interchangeably.Calcitonin levels, regardless of value, should not beinterpreted as absolute evidence of the presence orabsence of the disease.THIS TEST WAS PERFORMED AT:[employer]/[facility]YJAMES [facility] [id number] [place] [address]PLJVHUR W. 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
--- OUTSIDE RECORDS SUMMARY | 2025-04-07 09:50 | XMS_ITS | Encounter Summary ---
Author Organization [employer] Address [address] [facility] 7t [place] [address] Care Team Providers Care Manager Regional Name Role Phone Edwin Kirk MD Primary Care Provide r Isa Curry PharmD Unavailable [phone] Reason for Visit * Reason Comments Med Refill Encounter Details Date Type Department Care Team ([facility] st Contact Info) Description 04/04/2025 Refill [facility] MEDICINE [address] [place] [address] Isa Curry, PharmD [address] [place] [address] Type 2 diabetes mellitus with diabetic neuropathic arthropathy, with long-term current use of insulin (HCC) Social History Tobacco Use Types Packs/Day Years [...] 04/24/2025 10:00 AM EST Medication Management [facility] MEDICINE [address] [place] [address] Isa Curry PharmD [address] [place] [address] documented as of this encounter Goals Goal [...] arthropathy, with long-term current use of insulin ([facility]) documented in this encounter Additional Health Concerns Assessment Noted Time PHQ-9 Depression Total Score: 12 025 10:37 AM EDT documented as of this encounter Care Teams Manager Regional Relationship Specialty Start Date End Date Edwin Kirk MD [address] [place] [phone] PCP - General Internal Medicine 03/31/14 Isa Curry, Vinod [address] [place] [phone] Pharmacist Internal Medicine 09/05/24 documented as of this encounter
--- OUTSIDE RECORDS SUMMARY | 2025-04-07 09:51 | XMS_ITS | Encounter Summary ---
Author Organization [employer] Address [address] [facility] 7t [place] [address] Care Team Providers Care Bark Spudder Name Role Phone Edwin Kirk MD Primary Care Provide r Isa Curry PharmD Unavailable [phone] Reason for Visit * Reason Onset Date Comments Hospital Follow-up 06/26/2024 Encounter Details Date Type Department Care Team ([facility] st Contact Info) Description 06/26/2024 Telephone [facility] MEDICINE [address] [place] [address] Edwin Kirk MD [address] [place], [place] [phone] Hospital Follow-up Social History Tobacco Use Types [...] from pt requesting a HDF appt. Hospital: [facility] Date of admission: 06/24/24 Discharge date: 06/26/24 Diagnosed: Foot infection *Send message to [place] Clinical Care Coordinators documented in this encounter Plan of Treatment Upcoming Encounters Date Type Department Care Team (Late st Contact Info) Description 04/24/2025 10:00 AM EST Medication Management [facility] MEDICINE [address] [place] [address] Isa Curry PharmD [address] [place] [address] documented as of this encounter Goals Goal [...] documented as of this encounter Care Teams Bark Spudder Relationship Specialty Start Date End Date Edwin Kirk MD [address] [place] [address] PCP - General Internal Medicine 03/31/14 Isa Curry PharmD [address] [place] [address] Pharmacist Internal Medicine 09/05/24 [employer] 06/27/24 01/23/25 documented as of this encounter
--- OUTSIDE RECORDS SUMMARY | 2025-04-07 09:51 | XMS_ITS | Encounter Summary ---
Author Organization [employer] Address [address] [facility] 7t [place] [address] Care Team Providers Care Butter Production Supervisor Name Role Phone Edwin Kirk MD Primary Care Provide r Isa Curry PharmD Unavailable [phone] Reason for Visit * Reason Comments Med Refill Encounter Details Date Type Department Care Team ([facility] st Contact Info) Description 05/17/2024 Refill [facility] MEDICINE [address] [place] [address] Edwin Kirk MD [address] [place] [address] Type 2 diabetes mellitus with diabetic neuropathic arthropathy, with long-term current use of insulin ([facility]) Social History Tobacco Use Types Packs/Day [...] Medication Management [facility] MED[facility]INE [address] [place] [address] Isa Curry PharmD [address] [place] [address] documented as of this encounter Goals Goal [...] documented as of this encounter Care Teams Butter Production Supervisor Relationship Specialty Start Date End Date Edwin Kirk MD [address] [place] [address] PCP - General Internal Medicine 03/31/14 Isa Curry PharmD [address] [place] [address] Pharmacist Internal Medicine 09/05/24 [employer] 06/27/24 01/23/25 documented as of this encounter
--- OUTSIDE RECORDS SUMMARY | 2025-04-07 09:52 | XMS_ITS | Encounter Summary ---
Author Organization [employer] Address [address] [place] [address] 7 [place] [address] Care Team Providers Care Sailmaker Name Role Phone Edwin Kirk MD Primary Care Provide r Isa Curry PharmD Unavailable [phone] Encounter Details Date Type Department Care Team (Late st Contact Info) Description 11/23/[address] [facility] Health Information Management [address] [place] [address] Edwin Kirk MD [address] [place], [place] [phone] Social History Tobacco Use Types Packs/Day Years [...] Description 04/24/2025 10:00 AM EST Medication Management [facility] [address] [place] [address] Isa Curry, PharmD [address] [place], [place] [phone] documented as of this encounter Visit Diagnoses Not on filedocumented in this encounter Care Teams Sailmaker Relationship Specialty Start Date End Date Edwin Kirk MD [address] [place], [place] [phone] PCP - General Internal Medicine 03/31/14 Isa Curry, Vinod [address] [place] [address] Pharmacist Internal Medicine 09/05/24 [employer] 06/27/24 01/23/25 documented as of this encounter
--- OUTSIDE RECORDS SUMMARY | 2025-04-07 09:52 | XMS_ITS | Patient Health Record ---
Author Organization [facility] Address [address] [facility] [address] Care Team Providers Care Commercial Retoucher Name Role Phone Garry Zuleta MD, Edwin Primary Care Provide r Unavailable Cristofer Hilario Unavailable [phone] Allergies No Known Allergies Results Component Value [...] Problem Acquired hammer toe of right foot (831816407233015 5) Other hammer toe(s) (acquired), right foot (M20.41) Active confirmed Problem Acquired hammer toe of left foot (007860096546822 3) Other hammer toe(s) (acquired), left foot (M20.42) Active confirmed Problem Polyneuropathy due to type 2 diabetes mellitus (429732969) Type 2 diabetes mellitus with diabetic polyneuropathy [...] Ordered Date Performed Result Body Sit e 03992-NVFDZSQ NAIL, 6 OR MORE 07/12/2024 N/A 44625-RUZSAFH SKIN/TISSUE 07/12/2024 N/A 65273-JYXQ SKIN LESIONS, OVER 4 07/12/2024 N/A 98858-HEIXTGU NAIL, 6 OR MORE 10/18/2024 N/A 34800-ZISWXHE SKIN/TISSUE 10/18/2024 N/A 55213-KFZY SKIN LESIONS, OVER 4 10/18/2024 N/A 44250-GEXKBNQ NAIL, 6 OR MORE 01/24/2025 N/A 94854-KNJNLXQ SKIN/TISSUE 01/24/2025 N/A 85590-SGEF SKIN LESIONS, OVER 4 01/24/2025 N/A Encounters Encounter Location Date Provider Diagnosis [address] [address] 07/12/2024 Cristoferreyna Hilario Type 2 diabetes mellitus with diabetic polyneuropathy E11.42 ; Tinea unguium B35.1 ; Other hammer toe(s) (acquired), right foot M20.41 ; Other hammer toe(s) (acquired), left foot M20.42 and Neuropathic ulcer of right foot with fat layer exposed L97.[address] [address] 10/18/2024 Cristofer Hilario Type 2 diabetes mellitus with diabetic polyneuropathy E11.42 ; Tinea unguium B35.1 and Neuropathic ulcer of right foot with fat layer exposed L97.[address] [address] 01/24/2025 Cristofer Hilario Type 2 diabetes mellitus with diabetic polyneuropathy E11.42 ; Tinea unguium B35.1 and Neuropathic ulcer of right foot with fat layer exposed L97.[address] [address] 01/24/2025 Cristofer Hilario Assessments Encounter Date Diagnosis (ICD Code) Assessment Notes Treatment Notes Treatment Clinical Notes Section Notes 07/12/2024 Type 2 diabetes mellitus with diabetic [...] INSTRUCTIONS. pdf (DIABETIC FOOT CARE INSTRUCTIONS. pdf) 07/12/2024 Other hammer toe(s) (acquired), left foot (ICD-10 - M20.42) 07/12/2024 Neuropathic ulcer of right foot with fat layer exposed (ICD-10 - L97.512) Response to treatment Nonapplicable Patient Educated with: WOUND CARE INSTRUCTIONS. pdf (WOUND CARE INSTRUCTIONS. pdf) Plan Of Treatment Pending Test Test Name Order Date X ray : Foot, right 3V 04/13/2022 31998-KHVLYJG NAIL, 6 OR MORE 08/29/2022 36070-ZXTMKHS NAIL, 6 OR MORE 03/02/2022 29320-HSIUCYD NAIL, 6 OR MORE 11/02/2022 67653-YSBWLNT NAIL, 6 OR MORE 02/23/2023 79047-VYKKIBB NAIL, 6 OR MORE 05/24/2021 63776-CJXQZQY NAIL, 6 OR MORE 08/02/2021 89211-NHFMVZP NAIL, 6 OR MORE 10/11/2021 76836-LJFFKCZ NAIL, 6 OR MORE 12/22/2021 48381-WMHABAR NAIL, 6 OR MORE 11/18/2019 30237-WBEGIAK NAIL, 6 OR MORE 02/03/2020 16961-RNDIMOU NAIL, 6 OR MORE 06/01/2020 42227-LFTSBOQ NAIL, 6 OR MORE 08/10/2020 10344-UHQKBPE NAIL, 6 OR MORE 10/19/2020 39099-EIPMZEZ NAIL, 6 OR MORE 12/28/2020 82873-QQRQREQ NAIL, 6 OR MORE 03/15/2021 93256-GPVDFES NAIL, 6 OR MORE 05/16/2023 32750-XZOBTXX NAIL, 6 OR MORE 07/28/2023 91914-GULGDOC NAIL, 6 OR MORE 10/06/2023 40348-EBCXGQY NAIL, 6 OR MORE 04/05/2024 13055-JRQTGIS NAIL, 6 OR MORE 07/12/2024 14055-ZXKHDUH NAIL, 6 OR MORE 10/18/2024 05693-NLQECGC NAIL, 6 OR MORE 01/24/2025 17021-BKBXPQN NAIL, 1-5 08/12/2019 95907- Debride <25 sq cm 06/01/2020 95270- Debride <25 sq cm 02/03/2020 35580- Debride <25 sq cm 04/13/2022 90562-WOJXGEX SKIN/TISSUE 07/12/2024 43560-NNVGZLJ SKIN/TISSUE 01/24/2025 29200-RCMDIDI SKIN/TISSUE 10/18/2024 35660-IENNHOH SKIN/TISSUE 05/16/2023 16077-ZDBV SKIN LESIONS, OVER 4 05/16/20 83249-PDPA SKIN LESIONS, OVER 4 07/28/19 48772-PYXE SKIN LESIONS, OVER 4 04/05/20 42100-YGDO SKIN LESIONS, OVER 4 10/06/19 56659-UAKV SKIN LESIONS, OVER 4 10/19/19 51655-UCJH SKIN LESIONS, OVER 4 01/25/20 44442-HMYZ SKIN LESIONS, OVER 4 07/12/19 46685-NLIC SKIN LESIONS, OVER 4 02/03/20 89502-KWJN SKIN LESIONS, OVER 4 06/01/20 90718-IEJW SKIN LESIONS, OVER 4 11/18/19 67285-OYQW SKIN LESIONS, OVER 4 03/15/20 70611-JRNH SKIN LESIONS, OVER 4 12/29/19 72318-EZOT SKIN LESIONS, OVER 4 10/20/19 23807-JRRK SKIN LESIONS, OVER 4 08/10/19 85614-IXRF SKIN LESIONS, OVER 4 12/23/19 50744-CGXM SKIN LESIONS, OVER 4 10/12/19 74262-LPQQ SKIN LESIONS, OVER 4 08/02/19 57296-OIQX SKIN LESIONS, OVER 4 05/24/20 63151-WOSA SKIN LESIONS, OVER 4 02/24/20 06706-VZOK SKIN LESIONS, OVER 4 11/03/19 24190-UOWK SKIN LESIONS, OVER 4 03/02/20 89582-ORWZ SKIN LESIONS, OVER 4 08/30/19 99951-ELMY SKIN LESIONS, 2 TO 4 08/12/19 58809-Xpye. Subungual Hematoma 3 Next Appt Details Provider Name:Cristofer Hilario , 05/02/2025 12:00:00 PM, [address] [place], [address], Insurance Providers Payer Name Payer Address Payer Phone Subscriber Number Group Number Insured Name Patient Relationship to Insured Coverage Start Date Coverage End Date [facility] [employer] Claims [address] [facility] ALYSA Payne [id number] Dora Fernandez Self - patient is the [...]
--- OUTSIDE RECORDS SUMMARY | 2025-04-07 09:52 | XMS_ITS | Encounter Summary ---
Author Organization [facility] Address [address] [facility] 7 [place] [address] Care Team Providers Care Rn Referral Name Role Phone Edwin Kirk MD Primary Care Provide r Isa Curry PharmD Unavailable [phone] Encounter Details Date Type Department Care Team (Late st Contact Info) Description 10/27/2022 Abstract [facility] [address] [place] [address] Edwin Kirk MD [address] [place], [place] [phone] Social History Tobacco Use Types Packs/Day Years [...] Description 04/24/2025 10:00 AM EST Medication Management [facility] [address] [place] [address] Isa Curry, PharmD [address] [place] [address] documented as of this encounter Visit Diagnoses Not on filedocumented in this encounter Care Teams Rn Referral Relationship Specialty Start Date End Date Edwin Kirk MD [address] [place] [address] PCP - General Internal Medicine 03/31/14 Isa Curry PharmD [address] [place] [address] Pharmacist Internal Medicine 09/05/24 [employer] 06/27/24 01/23/25 documented as of this encounter
--- OUTSIDE RECORDS SUMMARY | 2025-04-07 09:52 | XMS_ITS | Encounter Summary ---
Author Organization [employer] Address [address] [facility] 7t [place] [address] Care Team Providers Care Photographic Supervisor Name Role Phone Edwin Kirk MD Primary Care Provide r Isa Curry PharmD Unavailable [phone] Reason for Visit * Reason Onset Date Comments Med Refill 04/02/2025 Encounter Details Date Type Department Care Team ([facility] st Contact Info) Description 04/02/2025 Refill [facility] [address] [place] [address] Edwin Kirk MD [address] [place] [address] Social History Tobacco Use Types Packs/Day Years [...] encounter Miscellaneous Notes * Telephone Encounter - Tiffanie Jacinto - 04/02/2025 10:53 AM EDT TC from pt requesting medication refill. Medications needing refill : - Blood Glucose Monitoring Suppl (FreeStyle Lite) w/Device kit To be sent to: - [facility] - [place], [place] - [address] [place] [address] Pt daughter stated her last monitor got lost documented in this encounter Plan of Treatment Upcoming Encounters Date Type Department Care Team (Late st Contact Info) Description 04/24/2025 10:00 AM EST Medication Management [facility] [address] [place] [address] Isa Curry, PharmD [address] [place] [address] documented as of this encounter Goals Goal Patient Goal Type Associated Problems Recent Progress Patient-Stated? Author Keep fasting blood glucose between 70 and 130 Result Component Type 2 diabetes mellitus with diabetic neuropathic arthropathy, with long-term current use of insulin Worsening(07/ 5:47 PM EDT) No Brito, Jerril, GurmeetD documented as of this encounter Visit Diagnoses Not on filedocumented in this encounter Additional Health Concerns Assessment Noted Time PHQ-9 Depression Total Score: 12 025 10:37 AM EDT documented as of this encounter Care Teams Photographic Supervisor Relationship Specialty Start Date End Date Edwin Kirk MD [address] [place] [address] PCP - General Internal Medicine 03/31/14 Isa Curry, GurmeetD [address] [place] [address] Pharmacist Internal Medicine 09/05/24 documented as of this encounter
--- OUTSIDE RECORDS SUMMARY | 2025-04-07 09:52 | XMS_ITS | Encounter Summary ---
Author Organization [employer] Address [address] [facility] 7t [place] [address] Care Team Providers Care Pony Roll Finisher Name Role Phone Edwin Kirk MD Primary Care Provide r sIa Curry PharmD Unavailable [phone] Reason for Visit * Reason Comments Med Refill Encounter Details Date Type Department Care Team ([facility] st Contact Info) Description 10/25/2024 Refill [facility]INE [address] [place] [address] Sherrie Carey, ANP [address] [place] [address] Diabetic polyneuropathy associated with type 2 diabetes [...] Description 04/24/2025 10:00 AM EST Medication Management [facility] [address] [place] [address] Isa Curry PharmD [address] [place] [address] documented as of this encounter Goals Goal [...] documented as of this encounter Care Teams Pony Roll Finisher Relationship Specialty Start Date End Date Edwin Kirk MD [address] [place] [address] PCP - General Internal Medicine 03/31/14 Isa Curry, Vinod [address] [place] [address] Pharmacist Internal Medicine 09/05/24 [employer] [facility] 06/27/24 01/23/25 documented as of this encounter
--- OUTSIDE RECORDS SUMMARY | 2025-04-07 09:52 | XMS_ITS | Encounter Summary ---
Author Organization [employer] Address [address] [facility] 7t [place] [address] Care Team Providers Care Street Commissioner Name Role Phone Edwin Kirk MD Primary Care Provide r Isa Curry PharmD Unavailable [phone] Encounter Details Date Type Department Care Team ([facility] Contact Info) Description 12/12/2024 Telephone [facility] [address] [place] [address] Edwin Kirk MD [address] [place], [place] [phone] Social History Tobacco Use Types Packs/Day Years [...] Description 04/24/2025 10:00 AM EST Medication Management [facility] [address] [place] [address] Isa Curry PharmD [address] [place] [address] documented as of this encounter Goals Goal [...] documented as of this encounter Care Teams Street Commissioner Relationship Specialty Start Date End Date Edwin Kirk MD [address] [place] [address] PCP - General Internal Medicine 03/31/14 Isa Curry, PharmD [address] [place] [address] Pharmacist Internal Medicine 09/05/24 [employer] [facility] 06/27/24 01/23/25 documented as of this encounter
--- OUTSIDE RECORDS SUMMARY | 2025-04-07 09:52 | XMS_ITS | Encounter Summary ---
Author Organization [employer] Address [address] [facility] 7t [place] [address] Care Team Providers Care Middleware Architect Name Role Phone Edwin Kirk MD Primary Care Provide r Isa Curry PharmD Unavailable [phone] Reason for Visit * Reason Onset Date Comments Durable Medical Equipment 03/27/2025 Encounter Details Date Type Department Care Team ([facility] st Contact Info) Description 03/27/2025 Telephone [facility] [address] [place] [address] Edwin Kirk MD [address] [place], [place] [phone] Durable Medical Equipment Social History Tobacco Use Types Packs/Day Years [...] AM EDT documented as of this encounter Functional Status * Over the past 2 weeks, how often have you been bothered by any of the following problems? Question Answer Date of Assessment Author Patient Health Questionnaire-2 Score 4 02/2025 10:37 AM Kylie Persaud [place] * Little interest or pleasure in doing things Answer Date of Assessment Author More than half the days 03/27/2025 10:37 AM Kylie Persaud [place] * Feeling down, depressed, or hopeless Answer Date of Assessment Author More than half the days 03/27/2025 10:37 AM Kylie Persaud [place] * Trouble falling or staying asleep, or sleeping too much Answer Date of Assessment Author More than half the days 03/27/2025 10:37 AM Kylie Persaud [place] * Feeling tired or having little energy Answer Date of Assessment Author More than half the days 03/27/2025 10:37 AM Kylie Persaud MA * Poor appetite or overeating Answer Date of Assessment Author Several days 03/27/2025 10:37 AM Mike Persaud MA * Feeling bad about yourself - or that you are a failure or have let yourself or your family down Answer Date of Assessment Author More than half the days 03/27/2025 10:37 AM Kylie Persaud MA * Trouble concentrating on things, such as reading the newspaper or watching television Answer Date of Assessment Author Several days 03/27/2025 10:37 AM Mike Persaud MA * Moving or speaking so slowly that other people could have noticed? Or the opposite - being so fidgety or restless that you have been moving around a lot more than usual. Answer Date of Assessment Author Not at all 03/27/2025 10:37 AM Mike Persaud MA * Thoughts that you would be better off or hurting yourself in some way Answer Date of Assessment Author Not at all 03/27/2025 10:37 AM Mike Persaud MA * Patient Health Questionnaire-9 Score Answer Date of Assessment Author 12 03/27/2025 10:37 AM Mike Persaud MA * Over the last 2 weeks, how often have you been bothered by any of the following problems? Question Answer Date of Assessment Author Feeling nervous, anxious, or on edge 1 02/2025 10:37 AM Kylie Persaud MA Not being able to stop or co ntrol worrying 2 03/27/2025 10:37 AM Kylie Persaud M A Worrying too much about diff erent things 2 03/27/2025 10:37 AM Kylie Persaud M A Trouble relaxing 3 03/27/2025 10:37 AM Kylie Persaud MA Being so restless that it is hard to sit still 3 03/27/2025 10:37 AM Kylie Persaud M A Becoming easily annoyed or irritable 2 02/2025 10:37 AM Kylie Persaud MA Feeling afraid as if somethi ng awful might happen 1 03/27/2025 10:37 AM Kylie Persaud M A BAO-7 Total Score 14 03/27/2025 10:37 AM Kylie Persaud MA documented as of this encounter Miscellaneous Notes * Telephone Encounter - Jillian Whitehead - 04/02/2025 4:09 PM EDT Addended notes faxed to [facility] as requested. * Telephone Encounter - Kevin Patterson - 04/01/2025 4:35 PM EDT TC from daughter and pt spoke to [facility] that have requested clinical notes and necessity of wheel chair . Must indicate wheel chair needed for indoor and out door use. * Telephone Encounter - Addis Rodriguez RN - 03/27/2025 12:21 PM EDT DME request for wheelchair, raised toilet seat, and shower bench generated, signed by PCP. Faxed Mario Alberto. documented in this encounter Plan of Treatment Upcoming Encounters Date Type Department Care Team (Late st Contact Info) Description 04/24/2025 10:00 AM EST Medication Management [facility] [address] [place], [place] [phone] Isa Curry PharmD [address] [place] [address] documented as of this encounter Goals Goal [...] documented as of this encounter Care Teams Middleware Architect Relationship Specialty Start Date End Date Edwin Kirk MD [address] [place] [address] PCP - General Internal Medicine 03/31/14 Isa Curry, PharmD [address] [place] [address] Pharmacist Internal Medicine 09/05/24 documented as of this encounter
--- OUTSIDE RECORDS SUMMARY | 2025-04-07 09:53 | XMS_ITS | Encounter Summary ---
Author Organization [employer] Address [address] [facility] 7t [place] [address] Care Team Providers Care Computer Processing Scheduler Name Role Phone Edwin Kirk MD Primary Care Provide r Isa Curry PharmD Unavailable Reason for Visit * Reason Comments Med Refill Encounter Details Date Type Department Care Team ([facility] st Contact Info) Description 10/25/[address] [facility]INE [address] [place] [address] Sherrie Carey, ANP [address] [place] [address] Diabetic polyneuropathy associated with type 2 diabetes [...] Description 04/24/2025 10:00 AM EST Medication Management [facility] [address] [place] [address] Isa Curry PharmD [address] [place] [address] documented as of this encounter Goals Goal [...] documented as of this encounter Care Teams Computer Processing Scheduler Relationship Specialty Start Date End Date Edwin Kirk MD [address] [place] [address] PCP - General Internal Medicine 03/31/14 Isa Curry, Vinod [address] [place] [address] Pharmacist Internal Medicine 09/05/24 [employer] [facility] 06/27/24 01/23/25 documented as of this encounter
--- NOTE | 2025-04-07 11:00 | AM.OFFVISNUR ---
Intake Visit Reasons: wound check Allergies No Known Allergies Allergy (Unknown, Verified 04/17/25 09:58) Nursing Note Pt reports for dressing change of amputation site right foot. Daughter with pt. Old dressing removed, large amount of sero-sang drainage noted. Sutures in place. Wound bed open with beefy red tissue and a small amount of slough noted. Area cleansed with NS, calcium alginate applied to wound bed, fluff gauze applied, kerlex wrap, and rosa wrap. Pt will return in a few days for dressing change. Daughter requested script for WC be sent to [place]. This, along with the necessary paperwork was done. Assessment & Plan Assessment & Plan Medications: New [Wheelchair] As directed 1 ea 0RF E11.621 - Type 2 diabetes mellitus with foot ulcer, L97.509 - Non-pressure chronic ulcer of other part of unspecified foot with unspecified severity, S98.139A - Complete traumatic amputation of one unspecified lesser toe, initial encounter Coding Level of Care Code Established Pt Est Pt Level 1 (35341) Patient Type Established History Problem Focused Exam Problem Focused Medical Decision Making Straight Forward Time Spent (min) 20 Comment dressing change
== END 2025-04-07 09:43 | disposition home or self-care (01) ==
LOC: HO.HGS 08:48
PROVIDERS: PCP Internal Medicine; Visit Provider Surgery
DX: M86.9 Osteomyelitis, unspecified (principal)
CPT/HCPCS: 99024

== ENCOUNTER → 2025-04-07 08:47 | Outpatient (BNVA) | payer OTHER, SELFPAY | PROVIDERS: PCP Internal Medicine; Visit Provider Surgery | DX: E11.621 Type 2 diabetes mellitus with foot ulcer (principal); L97.509 Non-pressure chronic ulcer of other part of unspecified foot with unspecified severity; S98.131A Complete traumatic amputation of one right lesser toe, initial encounter | CPT/HCPCS: 99212 ==

== ENCOUNTER 2025-04-11 08:51 | Outpatient (AMB) | payer OTHER, SELFPAY ==
--- OUTSIDE RECORDS SUMMARY | 2023-12-19 11:15 | XMS_ITS ---
Author Organization [facility] Address [address] [place] [phone] Care Team Providers Care Switch Repairer Name Role Phone Garry Zuleta MD, Edwin Primary Care Provide r Cristofer Owusu Unavailable [phone] Encounters Encounter Location Date Provider Diagnosis [address] [address] 12/19/2023 Cristofer Hilario Plan Of Treatment Next Appt Details Provider Name:Cristofer Hilario , 05/02/2025 12:00:00 PM, [address] [place] [address], [phone], Progress Notes * Dora FERNANDEZDOB:[birth year] (55 yo F)Acc No.[id number]:12/19/2023 Progress Note Patient: Tyler Dora MOSES Provider: Emily Hilario DPM :1970 A ge:53 Y S ex:Female Date:12/19/2023 Address:[address] [place] [address] rsoio [id number] Pcp:Edwin Zuleta MD Subjective: * Chief Complaints: [...] 0 12/19/2023 Generated for Joseph Rockwell on: 09:34 AM EDT
--- OUTSIDE RECORDS SUMMARY | 2024-11-05 10:30 | XMS_ITS ---
Author Organization [facility] Address [address] [place] [phone] Care Team Providers Care It Auditor Name Role Phone Garry Zuleta MD, Edwin Primary Care Provide r Cristofer Owusu Unavailable [phone] Encounters Encounter Location Date Provider Diagnosis [address] [address] 11/05/2024 Cristofer Hilario Plan Of Treatment Next Appt Details Provider Name:Cristofer Hilario , 05/02/2025 12:00:00 PM, [address] [place] [address], [phone], Progress Notes * Dora FERNANDEZDOB:[birth year] (55 yo F)Acc No.[id number]:11/05/2024 Progress Note Patient: Tyler Dora MOSES Provider: Emily Hilario DPM :1970 A ge:54 Y S ex:Female Date:11/05/2024 Address:[address] [place] [address] [place], [id number] Pcp:Edwin Zuleta MD Subjective: * Chief Complaints: * * Medical History: Objective: * Vitals: Assessment: Plan: * Treatment: * Images: * The named appointment provid er may or may not be the originator of this progress note, and it is not deemed complete until electronically signed by the appointment provider. Sign off status: Pending * Provider: Emily Hilario DPM Date: 0 11/05/2024 Generated for Joseph Rockwell on: 09:34 AM EDT
--- NOTE | 2025-04-11 09:17 | AM.OFFVISNUR ---
Intake Visit Reasons: dressing change Allergies No Known Allergies Allergy (Unknown, Verified 04/17/25 09:58) Nursing Note Pt reports for dressing change with daughter. Old dressing removed. Still has moderate amount of serosang. drainage. Patient states she has some pain in the area. Denies fevers or chills at home. They have [facility] for services to help with wound care for at home. Additionally seeing wound care for additional management of this wound. Several sutures still in place. Wound bed has some slough and beefy red tissue. Calcium alginate was applied to wound bed, fluff gauze, kerlix wrap and rosa. Pt to return in 2 days for visit with PA and removal of remaining sutures. Coding Level of Care Code Established Pt Est Pt Level 1 (74191) Patient Type Established History Problem Focused Exam Problem Focused Medical Decision Making Straight Forward Time Spent (min) 15 Comment Dressing change
--- OUTSIDE RECORDS SUMMARY | 2025-04-11 09:33 | XMS_ITS | Encounter Summary ---
Author Organization [employer] Address [address] [facility] 7 [place] [address] Care Team Providers Care Consultant Dietitian Name Role Phone Edwin Kirk MD Primary Care Provide r Isa Curry PharmD Unavailable [phone] Reason for Visit * Reason Comments Med Refill Encounter Details Date Type Department Care Team ([facility] st Contact Info) Description 12/26/2023 Refill [facility] [address] [place] [address] Annmarie Brewster MD [address] [place] [address] Heartburn Social History Tobacco Use Types Packs/Day [...] Description 04/24/2025 10:00 AM EST Medication Management [facility] [address] [place], [place] [phone] Isa Curry, PharmRadha [address] [place] [address] documented as of this encounter Visit Diagnoses Diagnosis Heartburn documented in this encounter Care Teams Consultant Dietitian Relationship Specialty Start Date End Date Edwin Kirk MD [address] [place] [phone] PCP - General Internal Medicine 03/31/14 Isa Curry, PharmD [address] [place] [address] Pharmacist Internal Medicine 09/05/24 [employer] [facility] 06/27/24 01/23/25 documented as of this encounter
--- OUTSIDE RECORDS SUMMARY | 2025-04-11 09:33 | XMS_ITS | Encounter Summary ---
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) Procedures MR Foot w/ and w/o Contrast Right Franklin Edwards MD [address] [place] [address] Phone: tel: fax: [address] Phone: tel: fax: Referral ID Status Reason Start Date Expiration Date V isits Requested Visits Authorized [id number] Canceled 02/06/2025 02/06/2026 1 1 Encounter Details Date Type Department Care Team (Late st Contact Info) Description 02/06/2025 Orders Only [facility] [address] [place], [place] [phone] Franklin Edwards MD [address] [place], [place] [phone] Ulcer of right foot with necrosis of [...] Description 04/24/2025 10:00 AM EST Medication Management [facility]INE [address] [place] [address] Isa Curry, PharmD [address] [place], [place] [phone] Scheduled Orders Name Type Priority Associated Diagnoses [...] AM EDT) Calcitonin (Thyrocalcitonin) <2 <=5 pg/mL [facility] Comment:This test was perfor med using the SiemensChemiluminescent method. Values obtained withdifferent assay methods cannot be used interchangeably.Calcitonin levels, regardless of value, should not beinterpreted as absolute evidence of the presence orabsence of the disease.THIS TEST WAS PERFORMED AT:[id number] [place] [address]RIBRENH W. 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
--- OUTSIDE RECORDS SUMMARY | 2025-04-11 09:33 | XMS_ITS | Encounter Summary ---
Author Organization [employer] Address [address] [facility] 7t [place] [address] Care Team Providers Care Sand Worker Name Role Phone Edwin Kirk MD Primary Care Provide r Isa Curry PharmD Unavailable [phone] Reason for Visit * Reason Comments Med Refill Encounter Details Date Type Department Care Team ([facility] st Contact Info) Description 04/04/2025 Refill [facility] MEDICINE [address] [place] [address] Isa Curry, PharmD [address] [place] [address] Type 2 diabetes mellitus with diabetic neuropathic [...] Description 04/24/2025 10:00 AM EST Medication Management [facility] MEDICINE [address] [place] [address] Isa Curry PharmD [address] [place] [address] documented as of this encounter Goals Goal [...] arthropathy, with long-term current use of insulin ([facility]) documented in this encounter Additional Health Concerns Assessment Noted Time PHQ-9 Depression Total Score: 12 025 10:37 AM EDT documented as of this encounter Care Teams Sand Worker Relationship Specialty Start Date End Date Edwin Kirk MD [address] [place] [id number] PCP - General Internal Medicine 03/31/14 Isa Curry, Vinod [address] [place] [address] Pharmacist Internal Medicine 09/05/24 documented as of this encounter
--- OUTSIDE RECORDS SUMMARY | 2025-04-11 09:33 | XMS_ITS | Encounter Summary ---
Author Organization [employer] Address [address] [facility] 7t [place] [address] Care Team Providers Care Multi Skilled Operator Name Role Phone Edwin Kirk MD Primary Care Provide r Isa Curry PharmD Unavailable [phone] Encounter Details Date Type Department Care Team ([facility] st Contact Info) Description 10/12/2023 Orders Only [facility] MEDICINE [address] [place] [address] ProviderChasity MD Social History Tobacco Use Types [...] Description 04/24/2025 10:00 AM EST Medication Management [facility] MEDICINE [address] [place] [address] Isa Curry PharmD [address] [place] [address] documented as of this encounter Procedures Procedure Name Priority Date/Time Associated Diagnosis Comments HM COLONOSCOPY Routine 12/25/2018 7:41 AM EDT documented in this encounter Results * Hm Colonoscopy (12/25/2018 7:41 AM EDT) Historical Provider HEALTH MAINTENANCE Final Result documented in this encounter Visit Diagnoses Not on filedocumented in this encounter Care Teams Multi Skilled Operator Relationship Specialty Start Date End Date Edwin Kirk MD [address] [place] [id number] PCP - General Internal Medicine 03/31/14 Isa Curry PharmD [address] [place] [address] Pharmacist Internal Medicine 09/05/24 [employer] [facility] 06/27/24 01/23/25 documented as of this encounter
--- OUTSIDE RECORDS SUMMARY | 2025-04-11 09:33 | XMS_ITS | Clinical Summary ---
Author Organization [facility] Address [address] [facility] [address] [place] [address] Phone Care Team Providers Care Director Translation Name Role Phone Edwin Castañeda MD Primary [...] day). Today pt's daughter tells me the Customer Service Coordinator Dr Mckeon cancelled the appointment. EKG today [...] % PVNMA 06/23/2020 us [facility] [id number] LICITED RESULTS Final Result PVNMA from Last 3 Months or Most Recently Relevant to Health Maintenance Insurance MCR ([id number]) ALYSA CHAN [id number] [facility] MCR ([id number]) Care Teams Director Translation Relationship Specialty Start Date End Date Edwin Castañeda MD PCP - General 06/29/20
--- OUTSIDE RECORDS SUMMARY | 2025-04-11 09:33 | XMS_ITS | Encounter Summary ---
Author Organization [employer] Address [address] [facility] 7t [place] [address] Care Team Providers Care Solution Architect Name Role Phone Edwin Kirk MD Primary Care Provide r Isa Curry PharmD Unavailable [phone] Reason for Visit * Reason Comments Med Refill Encounter Details Date Type Department Care Team ([facility] st Contact Info) Description 12/26/2023 Refill [facility] MEDICINE [address] [place] [address] Edwin Kirk MD 230 [place], [place] [phone] Diabetic polyneuropathy associated with type 2 diabetes [...] Description 04/24/2025 10:00 AM EST Medication Management [facility] MEDICINE [address] [place] [address] Isa Curry PharmD [address] [place] [address] documented as of this encounter Visit Diagnoses Diagnosis Diabetic polyneuropathy associated with type 2 diabetes mellitus (HCC) Low vitamin D level documented in this encounter Care Teams Solution Architect Relationship Specialty Start Date End Date Edwin Kirk MD [address] [place] [id number] PCP - General Internal Medicine 03/31/14 Isa Curry PharmD [address] [place] [address] Pharmacist Internal Medicine 09/05/24 [employer] [facility] 06/27/24 01/23/25 documented as of this encounter
--- OUTSIDE RECORDS SUMMARY | 2025-04-11 09:34 | XMS_ITS | Encounter Summary ---
Author Organization [employer] [facility] Address [address] [place] [address] 7 [place] [address] Care Team Providers Care Environmental Services Supervisor Name Role Phone Edwin Kirk MD Primary Care Provide r Isa Curry PharmD Unavailable [phone] Encounter Details Date Type Department Care Team (Late st Contact Info) Description 11/23/2022 [facility] Health Information Management [address] [place] [address] Edwin Kirk MD [address] [place], [place] [phone] Social History Tobacco Use Types Packs/Day Years [...] Description 04/24/2025 10:00 AM EST Medication Management [facility] MEDICINE [address] [place] [address] Isa Curry, PharmD [address] [place], [place] [phone] documented as of this encounter Visit Diagnoses Not on filedocumented in this encounter Care Teams Environmental Services Supervisor Relationship Specialty Start Date End Date Edwin Kirk MD [address] [place], [place] [phone] PCP - General Internal Medicine 03/31/14 Isa Curry, Vinod [address] [place] [address] Pharmacist Internal Medicine 09/05/24 [employer] 06/27/24 01/23/25 documented as of this encounter
--- OUTSIDE RECORDS SUMMARY | 2025-04-11 09:34 | XMS_ITS | Encounter Summary ---
Author Organization [employer] Address [address] [facility] 7t [place] [address] Care Team Providers Care Milieu Technician Name Role Phone Edwin Kirk MD Primary Care Provide r Isa Curry PharmD Unavailable [phone] Reason for Visit * Reason Onset Date Comments Hospital Follow-up 06/26/2024 Encounter Details Date Type Department Care Team ([facility] st Contact Info) Description 06/26/2024 Telephone [facility] MEDICINE [address] [place] [address] Edwin Kirk MD [address] [place], [place] [phone] Hospital Follow-up Social History Tobacco Use Types [...] is your housing situation today? I have shahlajackelin andrade 10/16/[address] you [...] from pt requesting a HDF appt. Hospital: [facility] Date of admission: 06/24/24 Discharge date: 06/26/24 Diagnosed: Foot infection *Send message to [place] Clinical Care Coordinators documented in this encounter Plan of Treatment Upcoming Encounters Date Type Department Care Team (Late st Contact Info) Description 04/24/2025 10:00 AM EST Medication Management [facility] MEDICINE [address] [place] [address] Isa Curry PharmD [address] [place] [address] documented as of this encounter Goals Goal [...] documented as of this encounter Care Teams Milieu Technician Relationship Specialty Start Date End Date Edwin Kirk MD [address] [place] [address] PCP - General Internal Medicine 03/31/14 Isa Curry PharmD [address] [place] [address] Pharmacist Internal Medicine 09/05/24 [employer] 06/27/24 01/23/25 documented as of this encounter
--- OUTSIDE RECORDS SUMMARY | 2025-04-11 09:34 | XMS_ITS | Encounter Summary ---
Author Organization [employer] Address [address] [facility] 7t [place] [address] Care Team Providers Care Acid Painter Name Role Phone Edwin Kirk MD Primary Care Provide r Isa Curry PharmD Unavailable [phone] Encounter Details Date Type Department Care Team ([facility] Contact Info) Description 12/12/2024 Telephone [facility] MEDICINE [address] [place] [address] Edwin Kirk MD [address] [place], [place] [phone] Social History Tobacco Use Types Packs/Day Years [...] 10:00 AM EST Medication Management [facility] MEDICINE [address] [place] [address] Isa Curry PharmD [address] [place] [address] documented as of this encounter Goals Goal [...] documented as of this encounter Care Teams Acid Painter Relationship Specialty Start Date End Date Edwin Kikr MD [address] [place] [address] PCP - General Internal Medicine 03/31/14 Isa Curry, PharmD [address] [place] [address] Pharmacist Internal Medicine 09/05/24 [employer] [facility] 06/27/24 01/23/25 documented as of this encounter
--- OUTSIDE RECORDS SUMMARY | 2025-04-11 09:34 | XMS_ITS | Encounter Summary ---
Author Organization [employer] Address [address] [facility] 7t [place] [address] Care Team Providers Care Manager Operations Name Role Phone Edwin Kirk MD Primary Care Provide r Isa Curry PharmD Unavailable [phone] Reason for Visit * Reason Comments Med Refill Encounter Details Date Type Department Care Team ([facility] st Contact Info) Description 05/17/2024 Refill [facility] MEDICINE [address] [place] [address] Edwin Kirk MD [address] [place] [address] Type 2 diabetes mellitus with diabetic neuropathic arthropathy, with long-term current use of insulin ([facility]) Social History Tobacco Use Types Packs/Day Years [...] 04/24/2025 10:00 AM EST Medication Management [facility] MEDICINE [address] [place] [address] Isa Curry PharmD [address] [place] [address] documented as of this encounter Goals Goal [...] as of this encounter Care Teams Manager Operations Relationship Specialty Start Date End Date Edwin Kirk MD [address] [place] [address] PCP - General Internal Medicine 03/31/14 Isa Curry PharmD [address] [place] [address] Pharmacist Internal Medicine 09/05/24 [employer] [facility] 06/27/24 01/23/25 documented as of this encounter
--- OUTSIDE RECORDS SUMMARY | 2025-04-11 09:34 | XMS_ITS | Clinical Summary ---
Author Organization [employer] Address [address] [facility] [address] [place] [address] Care Team Providers Care Irrigator Overhead Name Role Phone Edwin Kirk MD Primary Care Provide r Isa Curry PharmD Unavailable [phone] Allergies No known active allergies Medications buPROPion [...] arthropathy, with long-term current use of insulin ([facility]) TEST BLOOD SUGAR TWICE DAILY 100 each 025 Active FREESTYLE LITE test stripIndications :Type 2 diabetes mellitus with diabetic neuropathic arthropathy, with long-term current use of insulin ([facility]) TEST BLOOD SUGAR TWICE DAILY 100 strip 11 025 Active insulin aspart (NovoLOG FLEXPEN) 100 UNIT/ML penIndications:T ype 2 diabetes mellitus with diabetic neuropathic arthropathy, with long-term current use of insulin ([facility]) IN 0 TO 12 UNITS SUBCUTANEOUSLY THREE [...] arthropathy, with long-term current use of insulin ([facility]) INJECT 40 UNITS SUBCUTANEOUSLY AT BEDTIME 4.5 mL 5 025 Active gabapentin (Neurontin) 300 MG capsuleIndicatio ns:Diabetic polyneuropathy associated with type 2 diabetes mellitus ([facility]) TAKE 1 CAPSULE BY MOUTH TWICE DAILY IN THE MORNING AND AT BEDTIME 60 capsule 025 Active Embecta Pen Needle Tonja 32G X 4 MM misc USE DIRECTED TO TEST BLOOD SUGAR FOUR TIMES DAILY 100 each 025 Active Tirzepatide (Mounjaro) 7.5 MG/0.5ML solution auto-injectorInd ications:Type 2 diabetes mellitus with diabetic neuropathic arthropathy, with long-term current use of insulin ([facility]) Inject 7.5 mg under the skin 1 [...] arthropathy, with long-term current use of insulin ([facility]) Inject 5 mg under the skin 1 [...] necrosis of muscle 06/20 Overview (07/17/2024): Admitted [facility] (06/24/2024 - 06/26/2024) for right foot wound [...] hours for 7 day Patient followed with [facility] general surgeons 07/08/2024 Dr. Lim recommending follow [...] & Plan (07/17/2024 9:37 AM EST): Admitted [facility] (06/24/2024 - 06/26/2024) for right foot wound [...] hours for 7 day Patient followed with [facility] general surgeons 07/08/2024 Dr. Lim recommending follow [...] Morbid obesity with BMI of 50.0-59.9, adult ([facility] /[facility]) 01/09/2024 Assessment & Plan (10/10/2024 9:17 AM [...] EDT): Televisit Underwent extensive cardiac evaluation by Content Engineer nuclear stress test done on 09/02/2022 with [...] day). Today pt's daughter tells me the Content Engineer Dr Mckeon cancelled the appointment. EKG [...] Dental Exam: >6 months Recent hospitalization at [facility] 06/24/2024 - 06/26/2024. Saw CDTM on 07/09/24 [...] Dental Exam: >6 months Recent hospitalization at [facility] 06/24/2024 - 06/26/2024. Saw CDTM on 07/09/24 [...] Date Diagnosed Date Resolved Date Acute osteomyelitis ([facility]) 01/10/2023 01/09/2024 Assessment & Plan (01/26/2023 10:23 [...] Type Department Care Team Description 04/04/2025 Refill [facility] [address] [place] [address] Isa Curry, Vinod Type 2 diabetes mellitus with diabetic neuropathic arthropathy, with long-term current use of insulin ([facility]) 04/02/2025 Refill [facility] [address] [place] [address] Edwin Kirk MD 04/01/2025 Telephone [facility] [address] [place] [address] Edwin Kirk MD 04/01/2025 Orders Only GENERIC EXTERNAL DATA DEPARTMENT Provider, Generic External Data 03/27/2025 10:00 AM EDT Office Visit [facility] [place] [address] Edwin Kirk MD Osteomyelitis of fifth toe [...] current use of insulin (HCC) 03/27/2025 Telephone [facility] [place] [address] Edwin Kirk MD Durable Medical Equipment 03/27/2025 Travel 03/26/2025 Telephone [facility] [place] [address] Edwin Kirk MD chartprep 03/20/2025 Travel 03/14/2025 Refill [facility] [address] [place] [address] Edwin Kirk MD 03/14/2025 Refill [facility] [address] [place] [address] Edwin Kirk MD Diabetic polyneuropathy associated with type 2 diabetes mellitus (CMS/HCC) 03/07/2025 Refill [facility] [address] [place] [address] Isa Curry PharmD Type 2 diabetes mellitus with diabetic neuropathic arthropathy, with long-term current use of insulin ([facility]/HCC) 03/06/2025 Orders Only [facility] External Provider, [facility] 03/05/2025 Refill [facility] [address] [place] [address] Luh Weston MD Benign essential hypertension 02/13/2025 Telephone [facility] [address] [place] [address] Franklin Edwards MD MRI FOOT 02/06/2025 Telephone [facility] [address] [place] [address] Tram Merritt RN Results 02/06/2025 Orders Only [facility] [address] [place], [place] [phone] Franklin Edwards MD Ulcer of right foot with necrosis of muscle ([facility]/HCC) (Primary Dx) 02/06/2025 Orders Only [facility] [address] [place] [address] Edwin Kirk MD 02/06/2025 Travel 01/16/2025 Refill [facility] [address] [place] [address] Edwin Kirk MD Low vitamin D level 01/09/2025 11:30 AM EDT Office Visit [facility] [address] [place] [phone] Edwin Kirk MD Type 2 diabetes mellitus with diabetic neuropathic arthropathy, with long-term current use of insulin ([facility]/HCC) (Primary Dx); Diabetic polyneuropathy associated with type 2 diabetes mellitus (CMS/HCC); Benign essential hypertension; Heartburn; Breast cancer screening by mammogram; Preventative health care 01/09/2025 Travel from Last 3 Months Immunizations Immunization [...] Description 04/24/2025 10:00 AM EST Medication Management [facility] [address] [place] [address] Isa Curry, PharmD [address] [place] [address] Health Maintenance Due Date Last Done Comments [...] 8:05 AM EDT 04/01/2025 9:35 AM EDT [facility] - 04/04/2025 1:36 PM EDT ----- ------- Name: Dora Fernandez Age/Sex: 55/F : 1970 Unit#: [id number] Attend Dr: Gwendolyn Lim MD Re04/01/25 [address]: [facility] Location: [facility] Disch: ----- ------- SPEC : [id number] RECD: 04/01/25 STATUS: CHIDI SRINIVASAN NUM: [id number] RYAN: 04/01/25 [facility] DR: Gwendolyn Lim MD ENTERED: 04/01/25 SP [...] bone is slightly softened, without additional abnormalities. Screed Person sections are submitted to include customer relations representative soft tissue resection margin in cassette A1, bone resection margin in A2, area of skin ulcer in A3, bone underlying ulcer in A4 and customer relations representative detached fragments of bone in A5 (cassettes 2, 4 and 5 following decalcification per order of Dr. Phillip). (DTL) IHC S/NG Disclaimer NOTE: Unless otherwise stated, all tissue is formalin-fixed and paraffin-embedded. Some or all of the immunohistochemical tests reported herein may have been developed and their performance characteristics determined by [facility]. They have not been cleared or [...] Dora Fernandez Age/Sex: 55/F : 1970 Unit#: [id number] Attend Dr: Gwendolyn Lim MD Re04/01/25 Status: [facility] Location: [facility] Disch: ----- ------- SPEC : [id number] RECD: 04/01/25 STATUS: CHIDI SRINIVASAN NUM: [id number] RYAN: 04/01/25 [facility] DR: Gwendolyn Lim MD ENTERED: 04/01/25 SP TYPE: Surgical OTHR DR: Edwin Benitez MD ORDERED: Gross Micro L4, Decal Copies To: Edwin Benitez MD [facility] [address] [place] [address] Gwendolyn Lim MD [facility] General Surgeons [address] [place] [address] ----- ------- Signed (signature on file) Shekhar Phillip MD 04/04/25 1336 ----- ------- END OF REPORT us Generic External Data Provider LAB CYTOLOGY ELSIE SHETH Final Result [facility] [address] [place] [phone] [phone] * (ABNORMAL) Glucose, Whole Blood (04/01/2025 6:38 AM EDT) Glucose, Whole Blood 138(H) 60 - 115 mg/dL [facility] Comment:METER #: [id number] 04/01/2025 6:38 AM EDT 04/01/2025 6:43 AM EDT Generic External Data Provider LAB BLOOD ORDERAB LES Final Result [facility] [address] [place] [address] [phone] * POCT glucose manually resulted (03/27/2025 10:09 AM EDT) Only the most recent of2 resultswithin the time period is included. Glucose Blood, POC 159 60 - 200 mg/dL QC Media Lot # [id number] Lot# Expiration Date [id number] Blood Capillary blood specimen / Unknown 03/27/2025 10:09 AM EDT Edwin Zuleta MD POINT OF CARE TEST EN TER/EDIT ORDERABLES Final Result * (ABNORMAL) POCT glycosylated hemoglobin (Hgb A1c) (03/27/2025 10:08 AM EDT) Hemoglobin A1C 7.6(A) 4.0 - 5.7 % QC Media Lot # [id number] Lot# Expiration Date [id number] Blood Capillary blood specimen / Unknown 03/27/2025 10:08 AM EDT Edwin Zuleta MD POINT OF CARE TEST EN TER/EDIT ORDERABLES Final Result * BI Mammogram Screening Tomosynthesis Bilateral (03/19/2025 2:56 PM EDT) Anatomical Region Laterality Modality Breast Bilateral Mammography 03/19/2025 2:56 PM EDT Narrative 03/20/2025 8:46 AM EDT [facility] [address] [place] [address] Mammography Report Signed Patient: Dora Fernandez MR#: [id number] 005 : 1970 Acct:[id number] Age/Sex: 55 / F ADM Date: 03/19/25 Loc: [facility] Attending Dr: Edwin Benitez MD Ordering Physician: Edwin Benitez MD Resu lts: 1Negative Date of Service: 03/19/25 Follow Up: 1 Year From Orig inal Mammogram Procedure(s): MM tomosynthesis screening BI Accession Number(s): [id number] cc: Edwin Benitez MD Reason For Exam: [...] 03/20/25 0843 DD/ 1456 TD/TT: 03/19/25 1518 Director Of Community Education: Procedure Note Donotuseinterpreter, Image - 03/20/2025 [facility] [address] [place], [place] [address] Mammography Report Signed Patient: Dora FernandezMR#: [id number] 005 : 1970Acct:[id number] Age/Sex: 55 / FADM Date: 03/19/25 Loc: GEMINI Attending Dr: Edwin Benitez MD Ordering Physician: Edwin Benitez MDResu lts: 1Negative Date of Service: 03/19/25Follow Up: 1 Year From [facility] Mammogram Procedure(s): MM tomosynthesis screening BI Accession Number(s): [id number] cc: Edwin Benitez MD Reason For Exam: [...] 03/20/25 0843 DD/ 1456 TD/TT: 03/19/25 1518 Director Of Community Education: us Edwin Zuleta MD IMG BI PROCEDURES Miguelito hector Result - Final * MR Foot w/ and w/o Contrast Right (03/06/2025 8:30 AM EDT) Anatomical Region Laterality Modality Lower Extremities, Foot Right Magnetic Resonance 03/06/2025 8:30 AM EDT Narrative 03/06/2025 3:29 PM EDT [address] [address] Magnetic Resonance Report Signed Patient: Dora Fernandez MR#: [id number] 005 : 1970 Acct:[id number] Age/Sex: 54 / F ADM Date: 03/06/25 Loc: HO.MRI Attending Dr: Marlene Tiwari MD Ordering Physician: Marlene Tiwari MD Date of Service: 03/06/25 Procedure(s): MR foot RT wo/w con Accession Number(s): [id number] cc: Franklin Edwards MD; Marlene Tiwari MD; [...] 03/06/25 1527 DD/ 0830 TD/TT: 03/06/25 0911 Director Of Community Education: Procedure Note Donotuseinterpreter, Image - 03/06/2025 [place] [address] Magnetic Resonance Report Signed Patient: Dora Fernandez#: [id number] 005 : 1970Acct:[id number] Age/Sex: 54 / FADM Date: 03/06/25 Loc: HO.MRI Attending Dr: Marlene Tiwari MD Ordering Physician: Marlene Tiwari MD Date of Service: 03/06/25 Procedure(s): MR foot RT wo/w con Accession Number(s): [id number] cc: Frankiln Edwards MD; Marlene Tiwari MD; Edwin Benitez [...] 03/06/25 1527 DD/ 0830 TD/TT: 03/06/25 0911 Director Of Community Education: [facility] External Provider IMG MRI PROCEDURES Final Result * XR Foot 3+ Views Right (02/06/2025 11:50 AM EDT) Anatomical Region Laterality Modality Lower Extremities, Foot Right Radiogra phic Imaging 02/06/2025 11:5 0 AM EDT Narrative 02/06/2025 12:41 PM EDT [address] [address] XRay Report Signed Patient: Dora Fernandez MR#: [id number] 005 : 1970 Acct:[id number] Age/Sex: 54 / F ADM Date: 02/06/25 Loc: HO.HHCL Attending Dr: Edwin Benitez MD Ordering Physician: Edwin Benitez MD Date of Service: 02/06/25 Procedure(s): XR foot RT min 3V Accession Number(s): [id number] cc: Edwin Benitez MD EXAMINATION: XR FOOT, [...] DD/ 1150 TD/TT: 02/06/25 1156 Director Of Community Education: Procedure Note Donotuseinterpreter, Image - 02/06/[address] [address] XRay Report Signed Patient: Dora Fernandez#: [id number] 005 : 1970Acct:[id number] Age/Sex: 54 / FADM Date: 02/06/25 Loc: HO.[facility] Attending Dr: Edwin Benitez MD Ordering Physician: Edwin Benitez MD Date of Service: 02/06/25 Procedure(s): XR foot RT min 3V Accession Number(s): [id number] cc: Edwin Benitez MD EXAMINATION: XR FOOT, [...] DD/ 1150 TD/TT: 02/06/25 1156 Director Of Community Education: us Edwin Zuleta MD IMG XR PROCEDURES Fin al Result * Calcitonin (02/06/2025 11:23 AM EDT) [facility] Calcitonin (Thyrocalcitonin) <2 <=5 pg/mL [facility] Comment:This test was perfor med using the SiemensChemiluminescent method. Values obtained withdifferent assay methods cannot be used interchangeably.Calcitonin levels, regardless of value, should not beinterpreted as absolute evidence of the presence orabsence of the disease.THIS TEST WAS PERFORMED AT:[id number] [place] [address]OSISWQZALEXANDER CUETO MD,PHD 02/06/2025 11:2 3 AM EDT 02/06/2025 12:56 PM EDT us Generic External Data Provider LAB BLOOD ORDERAB LES Final Result [facility] [address] [place] [phone] * (ABNORMAL) CBC auto differential (02/06/2025 11:13 AM EDT) White Blood Count 6.6 4.8 - 10.8 X10*3/uL [facility] Red Blood Count 4.26 4.20 - 5.50 X10*6/uL [facility] Hemoglobin 11.6(L) 12.0 - 16.0 g/dl [facility] Hematocrit 35.6(L) 37.0 - 47.0 % [facility] Mean Corpuscular Volume 83.6 80.0 - 98.0 fL [facility] Mean Corpuscular Hemoglobin 27.2 27.0 - 33.0 pg [facility] Mean Corpuscular HGB Conc 32.6 31.0 - 35.0 g/dl [facility] Red Cell Distribution Width 13.1 11.0 - 16.0 % [facility] Platelet Count 265 160 - 400 X10*3/uL [facility] Mean Platelet Volume 11.7 9.4 - 12.3 fL [facility] Neutrophils Percent Auto 55.6 45 - 73 % [facility] Imm Gran Pct Auto 0.6(H) 0.0 - 0.4 % [facility] Lymphocytes Percent Auto 26.4 20 - 40 % [facility] Monocytes Percent Auto 8.6 2 - 11 % [facility] Eosinophils Percent Auto 8.0(H) 0 - 4 % [facility] Basophils Percent Auto 0.8 0 - 2 % [facility] NRBC Pct Auto 0.0 0.0 - 0.2 /100WBC [facility] Neutrophils Absolute Auto 3.7 2.0 - 8.3 x10*3/uL [facility] Imm Gran Abs Auto 0.04(H) 0.00 - 0.03 X10*3/uL [facility] Lymphocytes Absolute Auto 1.7 1.2 - 4.9 X10*3/uL [facility] Monocytes Absolute Auto 0.6 0.1 - 1.2 X10*3/uL [facility] Eosinophils Absolute Auto 0.5(H) 0.0 - 0.4 X10*3/uL [facility] Basophils Absolute Auto 0.1 0.0 - 0.2 X10*3/uL [facility] NRBC Abs Auto 0.000 0.0 - 0.012 X10*3/uL [facility] 02/06/2025 11:1 3 AM EDT 02/06/2025 12:56 PM EDT us Generic External Data Provider LAB BLOOD ORDERAB LES Final Result Performing Organization Address City/[facility]/ZIP Co de Phone Number [facility] [address] [place] [phone] * (ABNORMAL) Sed Rate by Modified Domenicoren (02/06/2025 11:13 AM EDT) Erythrocyte Sedimentation Rate 21(H) 0 - 20 MM/HR [facility] Comment:Patients with polycy themia and many hemoglobin abnormalitiesmay have depressed sed rates whereas patients with anemiamay have elevated sed rates. 02/06/2025 11:1 3 AM EDT 02/06/2025 12:56 PM EDT us Generic External Data Provider LAB BLOOD ORDERAB LES Final Result Performing Organization Address [facility] Co de Phone Number [facility] [address] [place] [phone] * (ABNORMAL) C-reactive Protein (02/06/2025 11:13 AM EDT) C Reactive Protein 2.66(H) < or = 0.50 mg/dL [facility] 02/06/2025 11:1 3 AM EDT 02/06/2025 12:56 PM EDT us Generic External Data Provider LAB BLOOD ORDERAB LES Final Result Performing Organization Address [facility]/ZIP Co de Phone Number [facility] [address] [place] [phone] * (ABNORMAL) Hemoglobin A1c (02/06/2025 11:13 AM EDT) Hemoglobin A1c 7.2(H) <6.0 % [facility] Comment:Hemoglobin A1C Refer ence Range Adults: 4.8 - 6.0 % Non diabetic: < 6.0 % Goal: < 7.0 %Additional Action Suggested: > 8.0 %Note: Hemoglobin A1c results are invalid for patients with abnormal amounts of HbF. Blood transfusions may impact the HbA1c concentration in the patient sample. Estimated Average Glucose 160 mg/dL [facility] Comment:eAG = Estimated ave rage glucose which is %A1C expressed asaverage glucose, using the formula of the P1H-WqpnupzBppmzqy Glucose study (ADAG), Diabetes Care, Vol.31,#8,Jan. 2007 02/06/2025 11:1 3 AM EDT 02/06/2025 12:56 PM EDT us Generic External Data Provider LAB BLOOD ORDERAB LES Final Result Performing Organization Address [facility] Co de Phone Number [facility] [address] [place] [phone] * Albumin, Random Urine W/Creatinine (01/27/2025 9:31 AM EDT) Creatinine, Urine 168.19 mg/dL [facility] Microalbumin Urine 17.0 mg/L [facility] Microalbum Creatinine Ratio Ur 10.1 <30 ug/mg cr [facility] Comment:Albumin/Creatinine R atio Reference Ranges: Normal: < 30 ug/mg creatinine Microalbuminuria: 30 - 300 ug/mg creatinineClinical Albuminuria: > 300 ug/mg creatinine Urine (Urine, Random) 01/27/2025 9:31 AM EDT 01/27/2025 11:14 AM EDT us Edwin Zuleta MD LAB URINE ORDERABLES Final Result Performing Organization Address [facility]/ZIP Co de Phone Number [facility] [address] [place] [phone] * Lipid Panel, Standard (01/27/2025 9:31 AM EDT) Triglycerides 64 <150 mg/dL [facility] Comment:Desirable Triglyceri de: less than 150 mg/dLBorderline High Triglyceride 150-199 mg/dLHigh Triglyceride: 200-499 mg/dLVery High Triglyceride: greater than or equal to 5OO mg/dL Cholesterol 134 <200 mg/dL [facility] Comment:Desirable Cholestero l: less than 200 mg/dLBorderline High Cholesterol: 200-239 mg/dLHigh Cholesterol: greater than 239 mg/dL LDL Cholesterol Calculated 61 <100 mg/dL [facility] Comment:Desirable LDL: less than 100 mg/dLNear Optimal/Above Optimal LDL: 110- 129 mg/dLBorderline High LDL: 130-159 mg/dLHigh LDL: 160-189 mg/dLVery High LDL: greater than or equal to 190 mg/dL HDL Cholesterol 61 >40 mg/dL [facility] Comment:Desirable HDL: great er than 40 mg/dL Note: This HDL assay may give artificially low results in patients with liver disease. Blood Venous blood specimen / Unknown 01/27/2025 9:31 AM EDT 01/27/2025 11:22 AM EDT us Edwin Zuleta MD LAB BLOOD ORDERABLES Final Result [facility] [address] [place] [phone] * (ABNORMAL) Comprehensive Metabolic Panel (01/27/2025 9:31 AM EDT) Sodium 142 135 - 145 mmol/L [facility] Potassium 4.5 3.3 - 5.1 mmol/L [facility] Chloride 102 96 - 108 mmol/L [facility] Carbon Dioxide 31(H) 22 - 29 mmol/L [facility] Anion Gap 14 12 - 20 [facility] Urea Nitrogen (BUN) 28(H) 9 - 16 mg/dL [facility] Creatinine, Serum 1.35 0.5 - 1.4 mg/dL [facility] Estimated Glomerular Filt Rate 41 [facility] Comment:Chronic Kidney Disea se: Estimated GFR < 60 mL/min/[id number] Kidney Disease: Estimated GFR < 15 mL/min/1.73m2 Glucose 108 60 - 115 mg/dL [facility] Calcium 9.3 8.4 - 10.2 mg/dL [facility] Bilirubin, Total 0.3 0.0 - 1.0 mg/dL [facility] Aspartate Amino Transferase 27 5 - 31 U/L [facility] Alanine Aminotransferase 17 0 - 31 U/L [facility] Total Protein 8.1(H) 6.5 - 8.0 g/dL [facility] Albumin Level 4.3 3.5 - 5.0 g/dL [facility] Alkaline Phosphatase 103 39 - 117 U/L [facility] Blood Venous blood specimen / Unknown 01/27/2025 9:31 AM EDT 01/27/2025 11:22 AM EDT Edwin Zuleta MD LAB BLOOD ORDERABLES Final Result [facility] [address] [place] [phone] * (ABNORMAL) POCT HGB A1C (01/09/2025 12:05 PM EDT) Pathologist [facility] Hemoglobin A1C 7.2(A) 4.0 - 5.7 % QC Media Lot # [id number] Lot# Expiration Date ,[id number] Blood 01/09/2025 12:0 5 PM EDT Edwin Zuleta MD POINT OF CARE TEST EN TER/EDIT ORDERABLES Final Result * HEPATITIS C AB W/REFL TO HCV RNA, QN, PCR (02/25/2022 9:25 AM EDT) Pathologist [facility] HEPATITIS C ANTIBODY NON-REACT [facility] NON-REACT [facility] INDEX 0.08 <1.00 [facility] Comment: HCV antibody was non-reactive. There is no laboratory evidence of HCV infection. In most cases, no further action is required. However, if recent HCV exposure is suspected, a test for HCV RNA (test code 58281) is suggested. For additional information please refer to http://evolso.Ui Link/faq/DDB55y8 (This link is being provided for informational/ educational purposes only.) 02/25/2022 9:25 AM EDT Edwin Zuleta MD HISTORICAL/NON ORDERA BLE LABS Final Result [facility] [address] * Hm Colonoscopy (12/25/2018 7:41 AM EDT) Historical Provider HEALTH MAINTENANCE Final Result from Last 3 Months or Most Recently Relevant to Health Maintenance Insurance [employer] < [address] ALYSA CHAN [id number] Care Teams Irrigator Overhead Relationship Specialty Start Date End Date Edwin Kirk MD [address] [place] [address] PCP - General Internal Medicine 03/31/14 Isa Curry PharmD [address] [place] [address] Pharmacist Internal Medicine 09/05/24
--- OUTSIDE RECORDS SUMMARY | 2025-04-11 09:34 | XMS_ITS | Encounter Summary ---
Author Organization [facility] Address 75 [facility] 7 [place] [address] Care Team Providers Care Art Critic Name Role Phone Edwin Kirk MD Primary Care Provide r Isa Curry PharmD Unavailable [phone] Encounter Details Date Type Department Care Team (Late st Contact Info) Description 10/27/2022 Abstract [facility] MEDICINE [address] [place] [address] Edwin Kirk MD [address] [place], [place] [phone] Social History Tobacco Use Types Packs/Day Years [...] Description 04/24/2025 10:00 AM EST Medication Management [facility] MEDICINE [address] [place] [address] Isa Curry, PharmD [address] [place] [address] documented as of this encounter Visit Diagnoses Not on filedocumented in this encounter Care Teams Art Critic Relationship Specialty Start Date End Date Edwin Kirk MD [address] [place] [address] PCP - General Internal Medicine 03/31/14 Isa Curry PharmD [address] [place] [address] Pharmacist Internal Medicine 09/05/24 [facility] 06/27/24 01/23/25 documented as of this encounter
--- OUTSIDE RECORDS SUMMARY | 2025-04-11 09:35 | XMS_ITS | Encounter Summary ---
Author Organization [employer] Address 75 [facility] 7t [place] [address] Care Team Providers Care Computer Processing Scheduler Name Role Phone Edwin Kirk MD Primary Care Provide r Isa Curry PharmD Unavailable [phone] Reason for Visit * Reason Comments Med Refill Encounter Details Date Type Department Care Team ([facility] st Contact Info) Description 10/25/[address] [facility] MEDICINE [address] [place] [address] Sherrie Carey, ANP [address] [place] [address] Diabetic polyneuropathy associated with type 2 diabetes [...] Description 04/24/2025 10:00 AM EST Medication Management [facility] MEDICINE [address] [place] [address] Isa Curry PharmD [address] [place] [address] documented as of this encounter Goals Goal [...] Date End Date Edwin Kirk MD [address] [place] [address] PCP - General Internal Medicine 03/31/14 Isa Curry, Vinod [address] [place] [address] Pharmacist Internal Medicine 09/05/24 [facility] 06/27/24 01/23/25 documented as of this encounter
--- OUTSIDE RECORDS SUMMARY | 2025-04-11 09:35 | XMS_ITS | Encounter Summary ---
Author Organization [employer] Address 75 [facility] 7t [place] [address] Care Team Providers Care Fire Alarm Installer Name Role Phone Edwin Kirk MD Primary Care Provide r Isa Curry PharmD Unavailable [phone] Reason for Visit * Reason Comments Med Refill Encounter Details Date Type Department Care Team ([facility] st Contact Info) Description 10/25/2024 Refill [facility] MEDICINE 230 [place] [address] Sherrie Carey, ANP [address] [place] [address] Diabetic polyneuropathy associated with type 2 diabetes [...] 04/24/2025 10:00 AM EST Medication Management [facility] MEDICINE [address] [place] [address] Isa Curry PharmD [address] [place] [address] documented as of this encounter Goals Goal [...] documented as of this encounter Care Teams Fire Alarm Installer Relationship Specialty Start Date End Date Edwin Kirk MD [address] [place] [address] PCP - General Internal Medicine 03/31/14 Isa Curry, Vinod [address] [place] [address] Pharmacist Internal Medicine 09/05/24 [facility] 06/27/24 01/23/25 documented as of this encounter
--- OUTSIDE RECORDS SUMMARY | 2025-04-11 09:35 | XMS_ITS | Patient Health Record ---
Author Organization [facility] Address [address] [facility] [place] [address] Care Team Providers Care Auto Machinist Name Role Phone Garry Zuleta MD, Edwin Primary Care Provide r Unavailable Cristofer Hilario Unavailable [phone] Allergies No Known Allergies Results Component Value [...] Problem Status W/U Status Risk Notes Problem Information temporarily unavailable Other hammer toe(s) (acquired), right foot (M20.41) Active confirmed Problem Information temporarily unavailable Other hammer toe(s) (acquired), left foot (M20.42) Active confirmed Problem Information temporarily unavailable Type 2 diabetes mellitus with diabetic polyneuropathy (E11.42) Active confirmed Problem Information temporarily unavailable 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) Active confirmed Response t o treatment - Unresolved Vital Signs Blood pressure diastolic 65 mm Hg 01/24/2025 Height 5ft9in in 01/24/2025 Blood pressure systolic 128 mm Hg 01/24/2025 Weight 360 lbs 01/24/2025 BMI 53.16 kg/m2 01/24/2025 Procedures Procedure Date Ordered Date Performed Result Body Sit e 14925-HAZUTRA NAIL, 6 OR MORE 07/12/2024 N/A 66459-WWDNJKU SKIN/TISSUE 07/12/2024 N/A 14087-MNPK SKIN LESIONS, OVER 4 07/12/2024 N/A 00030-IPEKRJZ NAIL, 6 OR MORE 10/18/2024 N/A 93147-XUTNAJG SKIN/TISSUE 10/18/2024 N/A 60328-BJGP SKIN LESIONS, OVER 4 10/18/2024 N/A 81221-LSQQIRL NAIL, 6 OR MORE 01/24/2025 N/A 77855-WWVBIAA SKIN/TISSUE 01/24/2025 N/A 01095-BBHU SKIN LESIONS, OVER 4 01/24/2025 N/A Encounters Encounter Location Date Provider Diagnosis [facility] [place] [address] [place] [address] 07/12/2024 Cristofer Hilario Type 2 diabetes mellitus with diabetic polyneuropathy E11.42 ; Tinea unguium B35.1 ; Other hammer toe(s) (acquired), right foot M20.41 ; Other hammer toe(s) (acquired), left foot M20.42 and Neuropathic ulcer of right foot with fat layer exposed L97.[address] [address] 10/18/2024 Cristofer Hilario Type 2 diabetes mellitus with diabetic polyneuropathy E11.42 ; Tinea unguium B35.1 and Neuropathic ulcer of right foot with fat layer exposed L97.[address] [address] 01/24/2025 Cristofer Hilario Type 2 diabetes mellitus with diabetic polyneuropathy E11.42 ; Tinea unguium B35.1 and Neuropathic ulcer of right foot with fat layer exposed L97.[address] [address] 01/24/2025 Cristofer Hilario Assessments Encounter Date Diagnosis [...] X ray : Foot, right 3V 04/13/2022 04984-NBIJDWI NAIL, 6 OR MORE 08/29/2022 07049-CRPKJZK NAIL, 6 OR MORE 03/02/2022 79800-ISVJUEW NAIL, 6 OR MORE 11/02/2022 62615-OXZAXZR NAIL, 6 OR MORE 02/23/2023 66944-UVIOGCZ NAIL, 6 OR MORE 05/24/2021 61541-QPHJJBP NAIL, 6 OR MORE 08/02/2021 95633-NFXDLOL NAIL, 6 OR MORE 10/11/2021 82566-TTUJROE NAIL, 6 OR MORE 12/22/2021 45493-AMIATCP NAIL, 6 OR MORE 11/18/2019 24933-CRMFFIP NAIL, 6 OR MORE 02/03/2020 26798-RPHPWEQ NAIL, 6 OR MORE 06/01/2020 78475-NZMDSXK NAIL, 6 OR MORE 08/10/2020 49109-IJCTNIW NAIL, 6 OR MORE 10/19/2020 72359-FPPRMQE NAIL, 6 OR MORE 12/28/2020 05762-PEZXRBU NAIL, 6 OR MORE 03/15/2021 64486-DYRNZDN NAIL, 6 OR MORE 05/16/2023 32183-OJDLWVT NAIL, 6 OR MORE 07/28/2023 37977-BOHDJYO NAIL, 6 OR MORE 10/06/2023 77858-WWBARLS NAIL, 6 OR MORE 04/05/2024 65892-XKXNRXA NAIL, 6 OR MORE 07/12/2024 43926-GNMSRRD NAIL, 6 OR MORE 10/18/2024 52907-XSFQQQA NAIL, 6 OR MORE 01/24/2025 97749-VTALIZY NAIL, 1-5 08/12/2019 97439- Debride <25 sq cm 06/01/2020 31015- Debride <25 sq cm 02/03/2020 88229- Debride <25 sq cm 04/13/2022 12481-YZMEBIQ SKIN/TISSUE 07/12/2024 42625-TDDUOVS SKIN/TISSUE 01/24/2025 88896-PKVPBID SKIN/TISSUE 10/18/2024 46203-YGRYSCO SKIN/TISSUE 05/16/2023 29948-KSDR SKIN LESIONS, OVER 4 05/16/20 67229-XIZO SKIN LESIONS, OVER 4 07/28/19 79462-PVMG SKIN LESIONS, OVER 4 04/05/20 66033-AMBG SKIN LESIONS, OVER 4 10/06/19 84774-LWXG SKIN LESIONS, OVER 4 10/19/19 49039-JHXN SKIN LESIONS, OVER 4 01/25/20 82214-DFVZ SKIN LESIONS, OVER 4 07/12/19 01794-QCVE SKIN LESIONS, OVER 4 02/03/20 54212-XVHZ SKIN LESIONS, OVER 4 06/01/20 94698-HPJP SKIN LESIONS, OVER 4 11/18/19 99716-AOLP SKIN LESIONS, OVER 4 03/15/20 20882-SNOH SKIN LESIONS, OVER 4 12/29/19 22976-OKKE SKIN LESIONS, OVER 4 10/20/19 16960-AYBQ SKIN LESIONS, OVER 4 08/10/19 01734-QWMJ SKIN LESIONS, OVER 4 12/23/19 45477-TXKU SKIN LESIONS, OVER 4 10/12/19 78141-UCNI SKIN LESIONS, OVER 4 08/02/19 22 30805-YKDA SKIN LESIONS, OVER 4 05/24/20 06581-YNYF SKIN LESIONS, OVER 4 02/24/20 57896-NAAA SKIN LESIONS, OVER 4 11/03/19 47427-GQXE SKIN LESIONS, OVER 4 03/02/20 47610-RQML SKIN LESIONS, OVER 4 08/30/19 45180-BQSQ SKIN LESIONS, 2 TO 4 08/12/19 34395-Eywg. Subungual Hematoma 3 Next Appt Details Provider Name:Cristofer Hilario , 05/02/2025 12:00:00 PM, [address] [facility], [place], [address], Insurance Providers Payer Name Payer Address Payer Phone Subscriber Number Group Number Insured Name Patient Relationship to Insured Coverage Start Date Coverage End Date [facility] [employer] Claims [address] [place] [address] [id number] Dora Fernandez Self - patient is the [...] T6, T7 Hospitalization History Reason Date(Month/Year) [facility]
== END 2025-04-11 09:20 | disposition home or self-care (01) ==
LOC: HO.HGS 08:51
PROVIDERS: PCP Internal Medicine; Visit Provider Surgery
DX: M86.9 Osteomyelitis, unspecified (principal)
CPT/HCPCS: 99024

== ENCOUNTER → 2025-04-11 08:51 | Outpatient (BNVA) | payer OTHER, SELFPAY | PROVIDERS: PCP Internal Medicine; Visit Provider Surgery | DX: Z48.00 Encounter for change or removal of nonsurgical wound dressing (principal) | CPT/HCPCS: 99212 ==

== ENCOUNTER 2025-04-14 10:53 | Outpatient (AMB) | payer OTHER, SELFPAY ==
--- OUTSIDE RECORDS SUMMARY | 2023-12-19 11:15 | XMS_ITS ---
Author Organization [facility] Address [address] [place] [phone] Care Team Providers Care Mercantile Agent Name Role Phone Garry Zuleta MD, Edwin Primary Care Provide r Cristofer Owusu Unavailable [phone] Encounters Encounter Location Date Provider Diagnosis [address] [address] 12/19/2023 Cristofer Hilario Plan Of Treatment Next Appt Details Provider Name:Cristofer Hilario , 05/02/2025 12:00:00 PM, [address] [place] [address], [phone], Progress Notes * Dora FERNANDEZDOB:[birth year] (55 yo F)Acc No.[id number]:12/19/2023 Progress Note Patient: Tyler Dora MOSES Provider: Emily Hilario DPM :1970 A ge:53 Y S ex:Female Date:12/19/2023 Address:[address] [place] [address] rosio [id number] Pcp:Edwin Zuleta MD Subjective: * Chief Complaints: [...] 0 12/19/2023 Generated for Joseph Rockwell on: 01:32 PM EDT
--- OUTSIDE RECORDS SUMMARY | 2024-11-05 10:30 | XMS_ITS ---
Author Organization [facility] Address [address] [place] [phone] Care Team Providers Care Cras Name Role Phone Garry Zuleta MD, Edwin Primary Care Provide r Cristofer Owusu Unavailable [phone] Encounters Encounter Location Date Provider Diagnosis [address] [address] 11/05/2024 Cristofer Hilario Plan Of Treatment Next Appt Details Provider Name:Cristofer Hilario , 05/02/2025 12:00:00 PM, [address] [place] [address], [phone], Progress Notes * Dora FERNANDEZDOB:[birth year] (55 yo F)Acc No.[id number]:11/05/2024 Progress Note Patient: Tyler Dora MOSES Provider: Emily Hilario DPM :1970 A ge:54 Y S ex:Female Date:11/05/2024 Address:[address] [place] [address] [place], [id number] Pcp:Edwin Zuleta MD Subjective: * Chief Complaints: [...] 0 11/05/2024 Generated for Joseph Rockwell on: 01:32 PM EDT
[2025-04-14 11:04] VITALS: BP 130/60; PULSE 81
--- NOTE | 2025-04-14 11:04 | MHC.OFFVIS ---
Vital Signs 04/14/25 11:04 Weight 350 lb BP 130/60 Blood Pressure Location Rt radial Position Sitting Pulse 81 Intake Visit Reasons: s/p amputation of 5th Rt toe Intake Note: Patient here s/p Amputation of the 5th toe, right foot, at the mid metatarsal level. Patient c/o: tenderness along incision. Denies oozing, inflammation. Surgery (): 03-13-2025 Tumbler Machine Operator Helper Required: No Accompanied by: Daughter Allergies No Known Allergies Allergy (Unknown, Verified 04/14/25 11:05) HPI HPI s/p amputation of 5th Rt toe: Details: Patient presents with daughter who has been providing wound care for her in the additionally acts as respiratory care technician. Patient states she has a little bit of pain in the area. Her daughter states that it has been having a good amount of output from the open wound. Denies fevers or chills at home. There has been no malodor. Has been slowly introducing weight-bearing at home, seems to be tolerating this well. There were [facility] with [facility] for services to help with wound care for at home. Additionally seeing wound care tomorrow for additional management of this wound. [facility] Medical History (Updated 04/15/25 @ 09:09 by Adrian Godinez PA-C) Osteomyelitis of toe of right foot Foot ulcer, right Wound of foot Toe ulcer due to DM Arm swelling Restrictive lung disease Dyspnea on exertion Morbid obesity Gallstones Obesity due to excess calories Chronic kidney disease, stage 3 Charcot foot due to diabetes mellitus Depression Vitamin D deficiency Hyperlipidemia LDL goal <100 Hypertension Diabetic polyneuropathy Type 2 diabetes mellitus with chronic kidney disease Surgical History (Updated 04/15/25 @ 09:09 by Adrian Godinez PA-C) Hx of colonoscopy History of partial ray amputation of third toe of right foot Hx of wisdom tooth extraction History of partial amputation of toe (2018) History of total hysterectomy with bilateral salpingo-oophorectomy (BSO) Family History Father Type 2 diabetes mellitus Mother Type 2 diabetes mellitus Diverticulitis Hypertension Social History (Updated 03/27/25 @ 15:16 by Fatuma Gerber RN) Household Members: Family Household Members Other:: , mother Housing: Condominium Are you a primary caregivers homecare to a significant other at home: No Do you presently have visiting nurse or other home services: No Alcohol intake: former Comment: Counts correct Patient Tobacco Use Status: Never used Tobacco service: No Physical Exam Vital Signs: Last Vital Signs Pulse 81 04/14/25 11:04 BP 130/60 04/14/25 11:04 Const General: comfortable and no acute distress Orientation/consciousness: patient oriented x3 Limitations: wheelchair Resp Effort & Inspection: normal respiratory effort and able to speak in complete sentences Neuro General: patient oriented x3 Extrem Other: Sutures in place, removed in office S did not appear to be holding tension on the wound. There is small amounts of serosanguineous drainage. A couple small areas of necrosis seen below. No malodor or purulence drainage. Nontender to palpation. Wound bed appears to be a mixture of granulation tissue and slough Assessment & Plan Assessment & Plan (1) Wound of foot: Code(s): S91.309A - Unspecified open wound, unspecified foot, initial encounter Category: Medical (2) Status post amputation of toe of right foot: Comment: Fourth and 5th toe. Code(s): Z89.421 - Acquired absence of other right toe(s) Category: Surgical Plan 55-year-old female s/p amputation of the lesser toe of the right foot on 04/01/[address] Lim. Patient states things are going well, her daughter is with her, states she has been helping with wound care at home. He continues to drain a moderate amount of fluid per the daughter. Changing the dressings once or twice a day. Using dura fiber, gauze, wrap and Heriberto. She states there was minimal pain, is now slowly increasing ambulation in the house. She seems to be tolerating weight bearing well for now. Denies fevers or chills at home. They are coordinating care with Alicia MCCLELLAND to assist with daily wound care. Additionally they have an appointment tomorrow at the wound center. On exam there is level 4 sutures remaining but do not appear to be holding any tension the wound. So I removed them in the office today without complication. The wound does appear to have some moderate output however the surrounding tissue appears try. There is no malodor or purulence fluid noted. The area was minimally tender to palpation during evaluation. There does appear to be a decent wound bed with granulation tissue however there is moderate amount of slough throughout the wound but did get debrided with the removal of the dressing. We will continue with daily dressing changes, continue with dura fiber due to continued output from the wound. Wound Care instructions: Dural fiber, left gas, Kerlix, Heriberto wrap. Patient will continue with wound care at home with [facility], wound clinic, she will follow up with us in about 2 weeks. Can return sooner with concerns or questions. Coding Level of Care Code Est Pt Level 4 (57943) Diagnoses Wound of foot S91.309A Status post amputation of toe of right foot Z89.421
--- OUTSIDE RECORDS SUMMARY | 2025-04-14 13:31 | XMS_ITS | Encounter Summary ---
Author Organization [employer] Address [address] [facility] 7t [place] [address] Care Team Providers Care Boots And Shoes Supervisor Name Role Phone Edwin Kirk MD Primary Care Provide r Isa Curry PharmD Unavailable [phone] Reason for Visit * Reason Comments Med Refill Encounter Details Date Type Department Care Team ([facility] st Contact Info) Description 12/26/2023 Refill [facility] MEDICINE [address] [place] [address] Edwin Kirk MD [address] [place], [place] [phone] Diabetic polyneuropathy associated with type 2 diabetes [...] Description 04/24/2025 10:00 AM EST Medication Management [facility] MEDICINE [address] [place] [address] Isa Curry PharmD [address] [place] [address] documented as of this encounter Visit Diagnoses Diagnosis Diabetic polyneuropathy associated with type 2 diabetes mellitus (HCC) Low vitamin D level documented in this encounter Care Teams Boots And Shoes Supervisor Relationship Specialty Start Date End Date Edwin Kirk MD [address] [place] [address] PCP - General Internal Medicine 03/31/14 Isa Curry PharmD [address] [place] [address] Pharmacist Internal Medicine 09/05/24 [facility] 06/27/24 01/23/25 documented as of this encounter
--- OUTSIDE RECORDS SUMMARY | 2025-04-14 13:31 | XMS_ITS | Encounter Summary ---
Author Organization [employer] Address [address] [facility] 7t [place] [address] Care Team Providers Care Cap Cutter Name Role Phone Edwin Kirk MD Primary Care Provide r Isa Curry PharmD Unavailable [phone] Encounter Details Date Type Department Care Team ([facility] st Contact Info) Description 10/12/2023 Orders Only [facility] MEDICINE [address] [place] [address] ProviderChasity MD Social History Tobacco Use Types [...] 10:00 AM EST Medication Management [facility] MEDICINE [address] [place] [address] Isa Curry PharmD [address] [place] [address] documented as of this encounter Procedures Procedure Name Priority Date/Time Associated Diagnosis Comments HM COLONOSCOPY Routine 12/25/2018 7:41 AM EDT documented in this encounter Results * Hm Colonoscopy (12/25/2018 7:41 AM EDT) Historical Provider HEALTH MAINTENANCE Final Result documented in this encounter Visit Diagnoses Not on filedocumented in this encounter Care Teams Cap Cutter Relationship Specialty Start Date End Date Edwin Kirk MD [address] [place] [address] PCP - General Internal Medicine 03/31/14 Isa Curry PharmD [address] [place] [address] Pharmacist Internal Medicine 09/05/24 [facility] 06/27/24 01/23/25 documented as of this encounter
--- OUTSIDE RECORDS SUMMARY | 2025-04-14 13:32 | XMS_ITS | Encounter Summary ---
Author Organization [employer] Address [address] [facility] 7t [place] [address] Care Team Providers Care Tearoom Host Name Role Phone Edwin Kirk MD Primary Care Provide r Isa Curry PharmD Unavailable [phone] Reason for Visit * Reason Onset Date Comments Hospital Follow-up 06/26/2024 Encounter Details Date Type Department Care Team ([facility] st Contact Info) Description 06/26/2024 Telephone [facility] MEDICINE [address] [place] [address] Edwin Kirk MD [address] [place], [place] [phone] Hospital Follow-up Social History Tobacco Use Types [...] from pt requesting a HDF appt. Hospital: [facility] Date of admission: 06/24/24 Discharge date: 06/26/24 Diagnosed: Foot infection *Send message to [facility] Clinical Care Coordinators documented in this encounter Plan of Treatment Upcoming Encounters Date Type Department Care Team (Late st Contact Info) Description 04/24/2025 10:00 AM EST Medication Management [facility] MEDICINE [address] [place] [address] Isa Curry PharmD [address] [place] [address] documented as of this encounter Goals Goal [...] documented as of this encounter Care Teams Tearoom Host Relationship Specialty Start Date End Date Edwin Kirk MD [address] [place] [address] PCP - General Internal Medicine 03/31/14 Isa Curry PharmD [address] [place] [address] Pharmacist Internal Medicine 09/05/24 [facility] 06/27/24 01/23/25 documented as of this encounter
--- OUTSIDE RECORDS SUMMARY | 2025-04-14 13:32 | XMS_ITS | Encounter Summary ---
Author Organization [employer] Address [address] [facility] 7t [place] [address] Care Team Providers Care Paperhanger Assistant Name Role Phone Edwin Kirk MD Primary Care Provide r Isa Curry PharmD Unavailable Reason for Visit * Reason Comments Med Refill Encounter Details Date Type Department Care Team ([facility] st Contact Info) Description 04/14/2025 Refill [facility] MEDICINE [address] [place] [address] Edwin Kirk MD [address] [place], [place] [phone] Diabetic polyneuropathy associated with type 2 diabetes mellitus (HCC) Social History Tobacco Use Types Packs/Day [...] Description 04/24/2025 10:00 AM EST Medication Management [facility] MEDICINE [address] [place] [address] Isa Curry PharmD [address] [place] [address] documented as of this encounter Goals Goal [...] documented as of this encounter Care Teams Paperhanger Assistant Relationship Specialty Start Date End Date Edwin Kirk MD [address] [place] [address] PCP - General Internal Medicine 03/31/14 Isa Curry, Vinod [address] [place] [address] Pharmacist Internal Medicine 09/05/24 documented as of this encounter
--- OUTSIDE RECORDS SUMMARY | 2025-04-14 13:32 | XMS_ITS | Clinical Summary ---
Author Organization [employer] Address [address] [place] [address] Care Team Providers Care Diesel Automotive Technician Name Role Phone Edwin Kirk MD Primary Care Provide r Isa Curry PharmD Unavailable [phone] Allergies No known active allergies Medications buPROPion [...] arthropathy, with long-term current use of insulin ([facility]) TEST BLOOD SUGAR TWICE DAILY 100 each 025 Active FREESTYLE LITE test stripIndications :Type 2 diabetes mellitus with diabetic neuropathic arthropathy, with long-term current use of insulin ([facility]) TEST BLOOD SUGAR TWICE DAILY 100 strip 11 025 Active insulin aspart (NovoLOG FLEXPEN) 100 UNIT/ML penIndications:T ype 2 diabetes mellitus with diabetic neuropathic arthropathy, with long-term current use of insulin ([facility]) IN 0 TO 12 UNITS [...] arthropathy, with long-term current use of insulin ([facility]) INJECT 40 UNITS SUBCUTANEOUSLY AT BEDTIME 4.5 mL 5 025 Active gabapentin (Neurontin) 300 MG capsuleIndicatio ns:Diabetic polyneuropathy associated with type 2 diabetes mellitus ([facility]) TAKE 1 CAPSULE BY MOUTH TWICE DAILY IN THE MORNING AND AT BEDTIME 60 capsule 025 Active Embecta Pen Needle Tonja 32G X 4 MM misc USE DIRECTED TO TEST BLOOD SUGAR FOUR TIMES DAILY 100 each 025 Active Tirzepatide (Mounjaro) 7.5 MG/0.5ML solution auto-injectorInd ications:Type 2 diabetes mellitus with diabetic neuropathic arthropathy, with long-term current use of insulin ([facility]) Inject 7.5 mg under the skin 1 [...] with long-term current use of insulin ([facility]) Inject 5 mg under the skin 1 [...] necrosis of muscle 06/20 Overview (07/17/2024): Admitted [facility] (06/24/2024 - 06/26/2024) for right foot [...] for 7 day Patient followed with [facility] general surgeons 07/08/2024 Dr. Lim recommending follow [...] & Plan (07/17/2024 9:37 AM EST): Admitted [facility] (06/24/2024 - 06/26/2024) for right foot [...] for 7 day Patient followed with [facility] general surgeons 07/08/2024 Dr. Lim recommending follow [...] Morbid obesity with BMI of 50.0-59.9, adult ([facility]) 01/09/2024 Assessment & Plan (10/10/2024 [...] EDT): Mammogram: NL : 03/20/2025 Pap Smear: 10/29/11 s/p ALYSSA Colonoscopy: 12/25/2018, [...] The AHI was 2 hr and oxygen jesyon was 86%. Concern was raised for Obesity Hypoventilation Syndrome. The recommendation was to consider a repeat sleep study with EICO2 measurements. Plan; Will refer to PUlmonology Chest pain 08/09/2022 Assessment & Plan (10/25/2022 1:03 PM EDT): Televisit Underwent extensive cardiac evaluation by [facility] nuclear stress test done on 09/02/2022 with [...] day). Today pt's daughter tells me the [facility] Dr Mckeon cancelled the appointment. EKG today [...] Dental Exam: >6 months Recent hospitalization at [facility] 06/24/2024 - 06/26/2024. Saw CDTM on [...] Dental Exam: >6 months Recent hospitalization at [facility] 06/24/2024 - 06/26/2024. Saw CDTM on [...] than 150mg/dl - F/U with new [facility] pharmacist for continued titration on 02/11. [...] Date Diagnosed Date Resolved Date Acute osteomyelitis ([facility]) 01/10/2023 01/09/2024 Assessment & Plan (01/26/2023 10:23 AM EDT): Seen by Dr Chacon and being followed by wound clinic for right foot infection,OM. She is supposed to have six weeks IV Ertapenem. She has no fever or chills now. will complete 02/11 Diabetic foot ulcer 01/10/2023 01/09/20 24 Diabetic ulcer of toe of rig ht foot associated with type 2 diabetes mellitus, limited to breakdown of skin 01/10/2023 01/09/2024 Non-pressure chronic ulcer o f other part of right foot limited to breakdown of skin ([facility]) 08/08/2022 01/09/2024 Encounters Date Type Department Care Team Description 04/14/2025 Refill [facility] [address] [place], [place] [phone] Edwin Kirk MD Diabetic polyneuropathy associated with type 2 diabetes mellitus ([facility]) 04/04/2025 Refill [facility] [address] [place] [address] Isa uCrry, PharmD Type 2 diabetes mellitus with diabetic neuropathic arthropathy, with long-term current use of insulin ([facility]) 04/02/2025 Refill [facility] [address] [place] [address] Edwin Kirk MD 04/01/2025 Telephone [facility] [address] [place] [address] Edwin Kirk MD 04/01/2025 Orders Only GENERIC EXTERNAL DATA DEPARTMENT Provider, Generic External Data 03/27/2025 10:00 AM EDT Office Visit [facility] [address] [place] [address] Edwin Kirk MD Osteomyelitis of fifth toe of right foot ([facility]) ([facility]) (Primary Dx); Preventative health care; Mixed hyperlipidemia; Class 3 severe obesity due to excess calories with serious comorbidity and body mass index (BMI) of 50.0 to 59.9 in adult ([facility]); Stage 3a chronic kidney disease ([facility]) ([facility]); Polyneuropathy due to type 2 diabetes mellitus ([facility]); Type 2 diabetes mellitus with diabetic neuropathic arthropathy, with long-term current use of insulin ([facility]) 03/27/2025 Telephone [facility] [address] [place] [address] Edwin Kirk MD Durable Medical Equipment 03/27/2025 Travel 03/26/2025 Telephone [facility] [address] [place] [address] Edwin Kirk MD chartprep 03/20/2025 Travel 03/14/2025 Refill [facility] [address] [place] [address] Edwin Kirk MD 03/14/2025 Refill [facility] [address] [place] [address] Edwin Kirk MD Diabetic polyneuropathy associated with type 2 diabetes mellitus ([facility]) 03/07/2025 Refill [facility] [address] [place] [address] Isa Curry, PharmRadha Type 2 diabetes mellitus with diabetic neuropathic arthropathy, with long-term current use of insulin ([facility]) 03/06/2025 Orders Only [facility] External Provider, [facility] 03/05/2025 Refill [facility] [address] [place] [address] Luh Weston MD Benign essential hypertension 02/13/2025 Telephone [facility] [address] [place] [address] Franklin Edwards MD MRI FOOT 02/06/2025 Telephone [facility] [address] [place] [address] Tram Merritt, HARPAL Results 02/06/2025 Orders Only [facility] [address] [place], [place] [phone] Franklin Edwards MD 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) (Primary Dx) 02/06/2025 Orders Only [facility] [address] [place], [place] [phone] Edwin Kirk MD 02/06/2025 Travel 01/16/2025 Refill [facility] [address] [place], [place] [phone] Edwin Kirk MD Low vitamin D level from Last 3 Months Immunizations Immunization Administration [...] t he electric, gas, oil or water [employer] threatened to shut off services in your [...] Description 04/24/2025 10:00 AM EST Medication Management [facility] [address] [place] [address] Ias Curry, PharmD [address] [place] [address] Health Maintenance Due Date Last Done Comments [...] 8:05 AM EDT 04/01/2025 9:35 AM EDT [facility] LABS - 04/04/2025 1:36 PM EDT ----- ------- Name: Dora Fernandez Age/Sex: 55/F : 1970 Unit#: [id number] Attend Dr: Gwendolyn Lim MD Re04/01/25 Status: [facility] Disch: ----- ------- SPEC : [id number] RECD: 04/01/25 STATUS: CHIDI SRINIVASAN NUM: [id number] RYAN: 04/01/[address] [facility] [address]: Gwendolyn Lim MD ENTERED: 04/01/25 [...] bone is slightly softened, without additional abnormalities. Videogame Tester sections are submitted to include traveling representative soft tissue resection margin in cassette A1, bone resection margin in A2, area of skin ulcer in A3, bone underlying ulcer in A4 and traveling representative detached fragments of bone in A5 (cassettes 2, 4 and 5 following decalcification per order of Dr. Phillip). (DTL) IHC S/NG Disclaimer NOTE: Unless otherwise stated, all tissue is formalin-fixed and paraffin-embedded. Some or all of the immunohistochemical tests reported herein may have been developed and their performance characteristics determined by [facility]. They have not been cleared or [...] Dora Fernandez Age/Sex: 55/F : 1970 Unit#: [id number] Attend Dr: Gwendolyn Lim MD Re04/01/25 Status: [facility] Location: [facility] Disch: ----- ------- SPEC : [id number] RECD: 04/01/25 STATUS: CHIDI SRINIVASAN NUM: [id number] RYAN: 04/01/[address] [facility] [address]: Gwendolyn Lim MD ENTERED: 04/01/25 TYPE: Surgical OTHR DR: Edwin Benitez MD ORDERED: Gross Micro L4, Decal Copies To: Edwin Benitez MD [address] [phone] Gwendolyn Lim MD [facility] General Surgeons [address] [place] [address] ----- ------- Signed (signature on file) Shekhar Phillip MD 04/04/25 1336 ----- ------- END OF REPORT Generic External Data Provider LAB CYTOLOGY ORDE RABLES Final Result Performing Organization Address [facility]/ZIP Co de Phone Number [facility] [address] [place] [address] [phone] * (ABNORMAL) Glucose, Whole Blood (04/01/2025 6:38 AM EDT) Glucose, Whole Blood 138(H) 60 - 115 mg/dL [facility] Comment:METER #: [id number] 04/01/2025 6:38 AM EDT 04/01/2025 6:43 AM EDT Generic External Data Provider LAB BLOOD ORDERAB LES Final Result Performing Organization Address [facility]/ZIP Co de Phone Number [facility] [address] [place] [phone] * POCT glucose manually resulted (03/27/2025 10:09 AM EDT) Glucose Blood, POC 159 60 - 200 mg/dL QC Media Lot # [id number] Lot# Expiration Date 614,167 Blood Capillary blood specimen / Unknown 03/27/2025 10:09 AM EDT Edwin Zuleta MD POINT OF CARE TEST EN TER/EDIT ORDERABLES Final Result * (ABNORMAL) POCT glycosylated hemoglobin (Hgb A1c) (03/27/2025 10:08 AM EDT) Hemoglobin A1C 7.6(A) 4.0 - 5.7 % QC Media Lot # [id number] Lot# Expiration Date [id number] Blood Capillary blood specimen / Unknown 03/27/2025 10:08 AM EDT Edwin Zuleta MD POINT OF CARE TEST EN TER/EDIT ORDERABLES Final Result * BI Mammogram Screening Tomosynthesis Bilateral (03/19/2025 2:56 PM EDT) Anatomical Region Laterality Modality Breast Bilateral Mammography 03/19/2025 2:56 PM EDT Narrative 03/20/2025 8:46 AM EDT [facility] [address] [place] [address] Mammography Report Signed Patient: Dora Fernandez MR#: [id number] 005 : 1970 Acct:[id number] Age/Sex: 55 / F ADM Date: 03/19/25 Loc: HO.MAMMO Attending Dr: Edwin Benitez MD Ordering Physician: Edwin Benitez MD Resu lts: 1Negative Date of Service: 03/19/25 Follow Up: 1 Year From Orig ina Mammogram Procedure(s): MM tomosynthesis screening BI Accession Number(s): [id number] cc: Edwin Benitez MD Reason For Exam: [...] Sara Lutz DO 03/20/2025 08:43 AM EDT RP Dictated By: Sara Lutz DO Signed By: <Electronically signed by Sara Lutz DO in OV> 03/20/25 0843 DD/ 1456 TD/TT: 03/19/25 1518 Oil Heat Technician: Procedure Note Donotuseinterpreter, Image - 03/20/2025 [facility] [address] [place] [address] Mammography Report Signed Patient: Dora FernandezMR#: [id number] 005 : 1970Acct:[id number] Age/Sex: 55 / FADM Date: 03/19/25 Loc: GEMINI Attending Dr: Edwin Benitez MD Ordering Physician: Edwin Benitez MDResu lts: 1Negative Date of Service: 03/19/25Follow Up: 1 Year From Orig inal Mammogram Procedure(s): MM tomosynthesis screening BI Accession Number(s): [id number] cc: Edwin Benitez MD Reason For Exam: [...] Sara Lutz DO 03/20/2025 08:43 AM EDT RP Dictated By: Sara Lutz DO Signed By: <Electronically signed by Sara Lutz DO in OV> 03/20/25 0843 DD/ 1456 TD/TT: 03/19/25 1518 Oil Heat Technician: us Edwin Zuleta MD IMG BI PROCEDURES Miguelito hector Result - Final * MR Foot w/ and w/o Contrast Right (03/06/2025 8:30 AM EDT) Anatomical Region Laterality Modality Lower Extremities, Foot Right Magnetic Resonance 03/06/2025 8:30 AM EDT Narrative 03/06/2025 3:29 PM EDT [address] [address] Magnetic Resonance Report Signed Patient: Dora Fernandez MR#: [id number] 005 : 1970 Acct:[id number] Age/Sex: 54 / F ADM Date: 03/06/25 Loc: HO.MRI Attending Dr: Marlene Tiwari MD Ordering Physician: Marlene Tiwari MD Date of Service: 03/06/25 Procedure(s): MR foot RT wo/w con Accession Number(s): [id number] cc: Franklin Edwards MD; Marlene Tiwari MD; [...] 03/06/25 1527 DD/ 0830 TD/TT: 03/06/25 0911 Oil Heat Technician: Procedure Note Donotuseinterpreter, Image - 03/06/[address] [address] Magnetic Resonance Report Signed Patient: Vick Fernandez#: [id number] 005 : 1970Acct:[id number] Age/Sex: 54 / FADM Date: 03/06/25 Loc: HO.MRI Attending Dr: Marlene Tiwari MD Ordering Physician: Marlene Tiwari MD Date of Service: 03/06/25 Procedure(s): MR foot RT wo/w con Accession Number(s): [id number] cc: Franklin Edwards MD; Marlene Tiwari MD; [...] 03/06/25 1527 DD/ 0830 TD/TT: 03/06/25 0911 Oil Heat Technician: [facility] External Provider IMG MRI PROCEDURES Final Result * XR Foot 3+ Views Right (02/06/2025 11:50 AM EDT) Anatomical Region Laterality Modality Lower Extremities, Foot Right Radiogra phic Imaging 02/06/2025 11:5 0 AM EDT Narrative 02/06/2025 12:41 PM EDT [address] [address] XRay Report Signed Patient: Dora Fernandez MR#: [id number] 005 : 1970 Acct:[id number] Age/Sex: 54 / F ADM Date: 02/06/25 Loc: HO.CL Attending Dr: Edwin Benitez MD Ordering Physician: Edwin Benitez MD Date of Service: 02/06/25 Procedure(s): XR foot RT min 3V Accession Number(s): [id number] cc: Edwin Benitez MD EXAMINATION: XR FOOT, [...] 02/06/25 1238 DD/ 1150 TD/TT: 02/06/25 1156 Oil Heat Technician: Procedure Note Donotuseinterpreter, Image - 02/06/[address] [address] XRay Report Signed Patient: Dora FernandezMR#: [id number] 005 : 1970Acct:[id number] Age/Sex: 54 / FADM Date: 02/06/25 Loc: HO.HHCL Attending Dr: Edwin Benitez MD Ordering Physician: Edwin Benitez MD Date of Service: 02/06/25 Procedure(s): XR foot RT min 3V Accession Number(s): [id number] cc: Edwin Benitez MD EXAMINATION: XR FOOT, [...] 02/06/25 1238 DD/ 1150 TD/TT: 02/06/25 1156 Oil Heat Technician: us Edwin Zuleta MD IMG XR PROCEDURES Fin al Result * Calcitonin (02/06/2025 11:23 AM EDT) Calcitonin (Thyrocalcitonin) <2 <=5 pg/mL [facility] Comment:This test was perfor med using the SiemensChemiluminescent method. Values obtained withdifferent assay methods cannot be used interchangeably.Calcitonin levels, regardless of value, should not beinterpreted as absolute evidence of the presence orabsence of the disease.THIS TEST WAS PERFORMED AT:[id number] [place] [phone] CUETO MD,PHD 02/06/2025 11:2 3 AM EDT 02/06/2025 12:56 PM EDT us Generic External Data Provider LAB BLOOD ORDERAB LES Final Result [facility] [address] [place] [phone] * (ABNORMAL) CBC auto differential (02/06/2025 11:13 AM EDT) White Blood Count 6.6 4.8 - 10.8 X10*3/uL [facility] Red Blood Count 4.26 4.20 - 5.50 X10*6/uL [facility] Hemoglobin 11.6(L) 12.0 - 16.0 g/dl [facility] Hematocrit 35.6(L) 37.0 - 47.0 % [facility] Mean Corpuscular Volume 83.6 80.0 - 98.0 fL [facility] Mean Corpuscular Hemoglobin 27.2 27.0 - 33.0 pg [facility] Mean Corpuscular HGB Conc 32.6 31.0 - 35.0 g/dl [facility] Red Cell Distribution Width 13.1 11.0 - 16.0 % [facility] Platelet Count 265 160 - 400 X10*3/uL [facility] Mean Platelet Volume 11.7 9.4 - 12.3 fL [facility] Neutrophils Percent Auto 55.6 45 - 73 % [facility] Imm Gran Pct Auto 0.6(H) 0.0 - 0.4 % [facility] Lymphocytes Percent Auto 26.4 20 - 40 % [facility] Monocytes Percent Auto 8.6 2 - 11 % [facility] Eosinophils Percent Auto 8.0(H) 0 - 4 % [facility] Basophils Percent Auto 0.8 0 - 2 % [facility] NRBC Pct Auto 0.0 0.0 - 0.2 /100WBC [facility] Neutrophils Absolute Auto 3.7 2.0 - 8.3 x10*3/uL [facility] Imm Gran Abs Auto 0.04(H) 0.00 - 0.03 X10*3/uL [facility] Lymphocytes Absolute Auto 1.7 1.2 - 4.9 X10*3/uL [facility] Monocytes Absolute Auto 0.6 0.1 - 1.2 X10*3/uL [facility] Eosinophils Absolute Auto 0.5(H) 0.0 - 0.4 X10*3/uL [facility] Basophils Absolute Auto 0.1 0.0 - 0.2 X10*3/uL [facility] NRBC Abs Auto 0.000 0.0 - 0.012 X10*3/uL [facility] 02/06/2025 11:1 3 AM EDT 02/06/2025 12:56 PM EDT us Generic External Data Provider LAB BLOOD ORDERAB LES Final Result Performing Organization Address City/State/[facility] Co de Phone Number [facility] [address] [place] [address] [phone] * (ABNORMAL) Sed Rate by Modified Westergren (02/06/2025 11:13 AM EDT) Erythrocyte Sedimentation Rate 21(H) 0 - 20 MM/HR [facility] Comment:Patients with polycy themia and many hemoglobin abnormalitiesmay have depressed sed rates whereas patients with anemiamay have elevated sed rates. 02/06/2025 11:1 3 AM EDT 02/06/2025 12:56 PM EDT us Generic External Data Provider LAB BLOOD ORDERAB LES Final Result Performing Organization Address City/[facility]/ZIP Co de Phone Number [facility] [address] [place] [phone] * (ABNORMAL) C-reactive Protein (02/06/2025 11:13 AM EDT) C Reactive Protein 2.66(H) < or = 0.50 mg/dL [facility] 02/06/2025 11:1 3 AM EDT 02/06/2025 12:56 PM EDT Generic External Data Provider LAB BLOOD ORDERAB LES Final Result Performing Organization Address [facility] de Phone Number [facility] [address] [place] [phone] * (ABNORMAL) Hemoglobin A1c (02/06/2025 11:13 AM EDT) Hemoglobin A1c 7.2(H) <6.0 % [facility] Comment:Hemoglobin A1C Refer ence Range Adults: 4.8 - 6.0 % Non diabetic: < 6.0 % Goal: < 7.0 %Additional Action Suggested: > 8.0 %Note: Hemoglobin A1c results are invalid for patients with abnormal amounts of HbF. Blood transfusions may impact the HbA1c concentration in the patient sample. Estimated Average Glucose 160 mg/dL [facility] Comment:eAG = Estimated ave rage glucose which is %A1C expressed asaverage glucose, using the formula of the D5C-ZsfblytIeyqfno Glucose study (ADAG), Diabetes Care, Vol.31,#8,Jan. 2007 02/06/2025 11:1 3 AM EDT 02/06/2025 12:56 PM EDT Generic External Data Provider LAB BLOOD ORDERAB LES Final Result Performing Organization Address [facility] Co de Phone Number [facility] [address] [place] [phone] * Albumin, Random Urine W/Creatinine (01/27/2025 9:31 AM EDT) Creatinine, Urine 168.19 mg/dL [facility] Microalbumin Urine 17.0 mg/L [facility] Microalbum Creatinine Ratio Ur 10.1 <30 ug/mg cr [facility] Comment:Albumin/Creatinine R at Reference Ranges: Normal: < 30 ug/mg creatinine Microalbuminuria: 30 - 300 ug/mg creatinineClinical Albuminuria: > 300 ug/mg creatinine Urine (Urine, Random) 01/27/2025 9:31 AM EDT 01/27/2025 11:14 AM EDT us Edwin Zuleta MD LAB URINE ORDERABLES Final Result [facility] [address] [place] [phone] * Lipid Panel, Standard (01/27/2025 9:31 AM EDT) Triglycerides 64 <150 mg/dL [facility] Comment:Desirable Triglyceri de: less than 150 mg/dLBorderline High Triglyceride 150-199 mg/dLHigh Triglyceride: 200-499 mg/dLVery High Triglyceride: greater than or equal to 5OO mg/dL Cholesterol 134 <200 mg/dL [facility] Comment:Desirable Cholestero l: less than 200 mg/dLBorderline High Cholesterol: 200-239 mg/dLHigh Cholesterol: greater than 239 mg/dL LDL Cholesterol Calculated 61 <100 mg/dL [facility] Comment:Desirable LDL: less than 100 mg/dLNear Optimal/Above Optimal LDL: 110- 129 mg/dLBorderline High LDL: 130-159 mg/dLHigh LDL: 160-189 mg/dLVery High LDL: greater than or equal to 190 mg/dL HDL Cholesterol 61 >40 mg/dL [facility] Comment:Desirable HDL: great er than 40 mg/dL Note: This HDL assay may give artificially low results in patients with liver disease. Blood Venous blood specimen / Unknown 01/27/2025 9:31 AM EDT 01/27/2025 11:22 AM EDT Edwin Zuleta MD LAB BLOOD ORDERABLES Final Result [facility] [address] [place] [phone] * (ABNORMAL) Comprehensive Metabolic Panel (01/27/2025 9:31 AM EDT) Sodium 142 135 - 145 mmol/L [facility] Potassium 4.5 3.3 - 5.1 mmol/L [facility] Chloride 102 96 - 108 mmol/L [facility] Carbon Dioxide 31(H) 22 - 29 mmol/L [facility] Anion Gap 14 12 - 20 [facility] Urea Nitrogen (BUN) 28(H) 9 - 16 mg/dL [facility] Creatinine, Serum 1.35 0.5 - 1.4 mg/dL [facility] Estimated Glomerular Filt Rate 41 [facility] Comment:Chronic Kidney Disea se: Estimated GFR < 60 mL/min/[id number] Kidney Disease: Estimated GFR < 15 mL/min/1.73m2 Glucose 108 60 - 115 mg/dL [facility] Calcium 9.3 8.4 - 10.2 mg/dL [facility] Bilirubin, Total 0.3 0.0 - 1.0 mg/dL [facility] Aspartate Amino Transferase 27 5 - 31 U/L [facility] Alanine Aminotransferase 17 0 - 31 U/L [facility] Total Protein 8.1(H) 6.5 - 8.0 g/dL [facility] Albumin Level 4.3 3.5 - 5.0 g/dL [facility] Alkaline Phosphatase 103 39 - 117 U/L [facility] Blood Venous blood specimen / Unknown 01/27/2025 9:31 AM EDT 01/27/2025 11:22 AM EDT Edwin Zuleta MD LAB BLOOD ORDERABLES Final Result [facility] [address] [place] [phone] * HEPATITIS C AB W/REFL TO HCV RNA, QN, PCR (02/25/2022 9:25 AM EDT) HEPATITIS C ANTIBODY NON-REACT REMI NON-REACT REMI [facility] INDEX 0.08 <1.00 [facility] Comment: HCV antibody was non-reactive. There is no laboratory evidence of HCV infection. In most cases, no further action is required. However, if recent HCV exposure is suspected, a test for HCV RNA (test code 38087) is suggested. For additional information please refer to http://education.[employer]/faq/ITZ05w8 (This link is being provided for informational/ educational purposes only.) 02/25/2022 9:25 AM EDT Edwin Zuleta MD HISTORICAL/NON ORDERA BLE LABS Final Result Performing Organization Address City/[facility] Co de Phone Number [facility] [address] [place] [address], * Hm Colonoscopy (12/25/2018 7:41 AM EDT) Historical Provider HEALTH MAINTENANCE Final Result from Last 3 Months or Most Recently Relevant to Health Maintenance Insurance [facility] ONE CARE < 65 ALYSA CHAN [id number] Care Teams Diesel Automotive Technician Relationship Specialty Start Date End Date Edwin Kirk MD [address] [place] [address] PCP - General Internal Medicine 03/31/14 Isa Curry PharmD [address] [place] [address] Pharmacist Internal Medicine 09/05/24
--- OUTSIDE RECORDS SUMMARY | 2025-04-14 13:32 | XMS_ITS | Encounter Summary ---
Author Organization [employer] Address [address] [place] [address] 7 [place] [address] Care Team Providers Care Electrical Design Technologist Name Role Phone Edwin Kirk MD Primary Care Provide r Isa Curry PharmD Unavailable [phone] Reason for Referral * Imaging (STAT) - Canceled Specialty Diagnoses / Procedures Referred By Contac t Referred To Contact Radiology Diagnoses Ulcer of right foot with necrosis of muscle (HCC) Procedures MR Foot w/ and w/o Contrast Right Franklin Edwards MD [address] [place] [address] Phone: tel: fax: [address] Phone: tel: fax: Referral ID Status Reason Start Date Expiration Date V isits Requested Visits Authorized [id number] Canceled 02/06/2025 02/06/2026 1 1 Encounter Details Date Type Department Care Team (Late st Contact Info) Description 02/06/2025 Orders Only [facility] [address] [place], [place] [phone] Franklin Edwarsd MD [address] [place], [place] [phone] Ulcer of right foot with necrosis of [...] Description 04/24/2025 10:00 AM EST Medication Management [facility] [address] [place] [address] Isa Curry, PharmD [address] [place], [place] [phone] Scheduled Orders Name Type Priority Associated Diagnoses [...] AM EDT) Calcitonin (Thyrocalcitonin) <2 <=5 pg/mL [facility] Comment:This test was perfor med using the SiemensChemiluminescent method. Values obtained withdifferent assay methods cannot be used interchangeably.Calcitonin levels, regardless of value, should not beinterpreted as absolute evidence of the presence orabsence of the disease.THIS TEST WAS PERFORMED AT:[facility] [place] [address]BYPFYOF W. MASON,MD,PHD 02/06/2025 11:2 3 AM EDT 02/06/2025 12:56 PM EDT us Generic External Data Provider LAB BLOOD ORDERAB LES Final Result [facility] [address] [place] [phone] documented in this encounter Visit Diagnoses Diagnosis Ulcer of right foot with necrosis of muscle (HCC)- Primary documented in this encounter Additional Health Concerns Assessment Noted Time PHQ-9 Depression Total Score: 13 07/17/ 025 10:20 AM EST documented as of this encounter Care Teams Electrical Design Technologist Relationship Specialty Start Date End Date Edwin Kirk MD [address] [place] [address] PCP - General Internal Medicine 03/31/14 Isa Curry PharmD [address] [place] [address] Pharmacist Internal Medicine 09/05/24 documented as of this encounter
--- OUTSIDE RECORDS SUMMARY | 2025-04-14 13:32 | XMS_ITS | Encounter Summary ---
Author Organization [employer] Address [address] [facility] 7t [place] [address] Care Team Providers Care Gas Engine Repairer Name Role Phone Edwin Kirk MD Primary Care Provide r Isa Curry PharmD Unavailable [phone] Reason for Visit * Reason Comments Med Refill Encounter Details Date Type Department Care Team ([facility] st Contact Info) Description 04/04/2025 Refill [facility] [address] [place] [address] Isa Curry, PharmD [address] [place] [address] Type 2 diabetes mellitus with diabetic neuropathic [...] Description 04/24/2025 10:00 AM EST Medication Management [facility] [address] [place] [address] Isa Curry PharmD [address] [place] [address] documented as of this encounter Goals Goal [...] with long-term current use of insulin ([facility]) documented in this encounter Additional Health Concerns Assessment Noted Time PHQ-9 Depression Total Score: 12 025 10:37 AM EDT documented as of this encounter Care Teams Gas Engine Repairer Relationship Specialty Start Date End Date Edwin Kirk MD [address] [place] [address] PCP - General Internal Medicine 03/31/14 Isa Curry, Vinod [address] [place] [address] Pharmacist Internal Medicine 09/05/24 documented as of this encounter
--- OUTSIDE RECORDS SUMMARY | 2025-04-14 13:32 | XMS_ITS | Clinical Summary ---
Author Organization [facility] Address [address] [facility] [address] [place] [address] Phone Care Team Providers Care Senior Managing Director Name Role Phone Edwin Castañeda MD Primary [...] Active Insulin Glargine, 1 Unit Dial, (Tomirela Doratnes) 300 UNIT/ML solution pen-injector Active lisinopril (PRINIVIL,ZEST [...] day). Today pt's daughter tells me the Night Patrol Inspector Dr Mckeon cancelled the appointment. EKG today [...] % PVNMA 06/23/2020 us [facility] [id number] LICITED RESULTS Final Result PVNMA from Last 3 Months or Most Recently Relevant to Health Maintenance Insurance MCR ([id number]) ALYSA CHAN [id number] [facility] MCR ([id number]) Care Teams Senior Managing Director Relationship Specialty Start Date End Date Edwin Castañeda MD PCP - General 06/29/20
--- OUTSIDE RECORDS SUMMARY | 2025-04-14 13:32 | XMS_ITS | Encounter Summary ---
Author Organization [employer] Address 75 [facility] 7t [place] [address] Care Team Providers Care Self Propelled Hot Mix Roller Operator Name Role Phone Edwin Kirk MD Primary Care Provide r Isa Curry PharmD Unavailable [phone] Reason for Visit * Reason Comments Med Refill Encounter Details Date Type Department Care Team ([facility] st Contact Info) Description 05/17/2024 Refill [facility] [address] [place] [address] Edwin Kirk MD [address] [place] [address] Type 2 diabetes mellitus with diabetic neuropathic arthropathy, with long-term current use of insulin ([facility]) Social History Tobacco Use Types Packs/Day Years [...] Description 04/24/2025 10:00 AM EST Medication Management [facility] [address] [place] [address] Isa Curry PharmD [address] [place] [address] documented as of this encounter Goals Goal [...] documented as of this encounter Care Teams Self Propelled Hot Mix Roller Operator Relationship Specialty Start Date End Date Edwin Kirk MD [address] [place] [address] PCP - General Internal Medicine 03/31/14 Isa Curry PharmD [address] [place] [address] Pharmacist Internal Medicine 09/05/24 [employer] [facility] 06/27/24 01/23/25 documented as of this encounter
--- OUTSIDE RECORDS SUMMARY | 2025-04-14 13:32 | XMS_ITS | Encounter Summary ---
Author Organization [employer] Address [address] [facility] 7 [place] [address] Care Team Providers Care Project Lead Name Role Phone Edwin Kirk MD Primary Care Provide r Isa Curry PharmD Unavailable [phone] Reason for Visit * Reason Comments Med Refill Encounter Details Date Type Department Care Team ([facility] st Contact Info) Description 12/26/2023 Refill [facility] [address] [place] [address] Annmarie Brewster MD [address] [place] [address] Heartburn Social History Tobacco Use Types Packs/Day [...] Description 04/24/2025 10:00 AM EST Medication Management [facility] [address] [place], [place] [phone] Isa Curry, PharmRadha 230 [place] [address] documented as of this encounter Visit Diagnoses Diagnosis Heartburn documented in this encounter Care Teams Project Lead Relationship Specialty Start Date End Date Edwin Kirk MD [address] [place] [address] [phone] PCP - General Internal Medicine 03/31/14 Isa Curry, PharmD [address] [place] [address] Pharmacist Internal Medicine 09/05/24 [employer] [facility] 06/27/24 01/23/25 documented as of this encounter
--- OUTSIDE RECORDS SUMMARY | 2025-04-14 13:32 | XMS_ITS | Encounter Summary ---
Author Organization [employer] [facility] Address [address] [facility] 7 [place] [address] Care Team Providers Care Analog Ic Design Architect Name Role Phone Edwin Kirk MD Primary Care Provide r Isa Curry PharmD Unavailable [phone] Encounter Details Date Type Department Care Team (Late st Contact Info) Description 10/27/2022 Abstract [facility] [address] [place] [address] Edwin Kirk MD [address] [place], [place] [phone] Social History Tobacco Use Types Packs/Day Years [...] Description 04/24/2025 10:00 AM EST Medication Management [facility] [address] [place] [address] Isa Curry, PharmD [address] [place] [address] documented as of this encounter Visit Diagnoses Not on filedocumented in this encounter Care Teams Analog Ic Design Architect Relationship Specialty Start Date End Date Edwin Kirk MD [address] [place] [address] PCP - General Internal Medicine 03/31/14 Isa Curry PharmD [address] [place] [address] Pharmacist Internal Medicine 09/05/24 [employer] [facility] 06/27/24 01/23/25 documented as of this encounter
--- OUTSIDE RECORDS SUMMARY | 2025-04-14 13:33 | XMS_ITS | Encounter Summary ---
Author Organization [employer] Address [address] [facility] 7t [place] [address] Care Team Providers Care Shuttle Van Driver Name Role Phone Edwin Kirk MD Primary Care Provide r Isa Curry PharmD Unavailable [phone] Reason for Visit * Reason Comments Med Refill Encounter Details Date Type Department Care Team ([facility] st Contact Info) Description 10/25/2024 Refill [facility] [address] [place] [address] Sherrie Carey, ANP [address] [place] [address] Diabetic polyneuropathy associated with type 2 diabetes [...] Description 04/24/2025 10:00 AM EST Medication Management [facility] [address] [place] [address] Isa Curry PharmD [address] [place] [address] documented as of this encounter Goals Goal [...] documented as of this encounter Care Teams Shuttle Van Driver Relationship Specialty Start Date End Date Edwin Kirk MD [address] [place] [address] PCP - General Internal Medicine 03/31/14 Isa Curry, Vindo [address] [place] [address] Pharmacist Internal Medicine 09/05/24 [employer] [facility] 06/27/24 01/23/25 documented as of this encounter
--- OUTSIDE RECORDS SUMMARY | 2025-04-14 13:33 | XMS_ITS | Patient Health Record ---
Author Organization [facility] Address [address] [facility] [place] [address] Care Team Providers Care Director Health Name Role Phone Garry Zuleta MD, Edwin Primary Care Provide r Unavailable Cristofer Hilario Unavailable [phone] Allergies No Known Allergies Results Component Value [...] Problem Acquired hammer toe of right foot (384859025262088 5) Other hammer toe(s) (acquired), right foot (M20.41) Active confirmed Problem Acquired hammer toe of left foot (234683562102566 3) Other hammer toe(s) (acquired), left foot (M20.42) Active confirmed Problem Polyneuropathy due to type 2 diabetes mellitus (127024372) Type 2 diabetes mellitus with diabetic polyneuropathy [...] Ordered Date Performed Result Body Sit e 23839-CKRENTO NAIL, 6 OR MORE 07/12/2024 N/A 91733-LNQPFTL SKIN/TISSUE 07/12/2024 N/A 15372-LHGB SKIN LESIONS, OVER 4 07/12/2024 N/A 11607-ZENYXMN NAIL, 6 OR MORE 10/18/2024 N/A 10522-KHHZRXI SKIN/TISSUE 10/18/2024 N/A 81520-WDWO SKIN LESIONS, OVER 4 10/18/2024 N/A 20041-XKGCNLJ NAIL, 6 OR MORE 01/24/2025 N/A 71442-FIRXLCF SKIN/TISSUE 01/24/2025 N/A 58217-DDML SKIN LESIONS, OVER 4 01/24/2025 N/A Encounters Encounter Location Date Provider Diagnosis [address] [address] 07/12/2024 Cristoferreyna Hilario Type 2 diabetes mellitus with diabetic polyneuropathy E11.42 ; Tinea unguium B35.1 ; Other hammer toe(s) (acquired), right foot M20.41 ; Other hammer toe(s) (acquired), left foot M20.42 and Neuropathic ulcer of right foot with fat layer exposed L97.[address] [address] 10/18/2024 Cristofer Hilario Type 2 diabetes mellitus with diabetic polyneuropathy E11.42 ; Tinea unguium B35.1 and Neuropathic ulcer of right foot with fat layer exposed L97.[address] [address] 01/24/2025 Cristofer Hilario Type 2 diabetes mellitus with diabetic polyneuropathy E11.42 ; Tinea unguium B35.1 and Neuropathic ulcer of right foot with fat layer exposed L97.[address] [address] 01/24/2025 Cristofer Hilario Assessments Encounter Date Diagnosis [...] X ray : Foot, right 3V 04/13/2022 67125-GFXEGLJ NAIL, 6 OR MORE 08/29/2022 49649-SGAMHJX NAIL, 6 OR MORE 03/02/2022 63894-TQNKJXA NAIL, 6 OR MORE 11/02/2022 23064-IRDYMTH NAIL, 6 OR MORE 02/23/2023 84022-CRMQKDB NAIL, 6 OR MORE 05/24/2021 69530-DTZXDNG NAIL, 6 OR MORE 08/02/2021 67907-AQTSMBO NAIL, 6 OR MORE 10/11/2021 24452-NOMXXSH NAIL, 6 OR MORE 12/22/2021 54366-UJAAGWT NAIL, 6 OR MORE 11/18/2019 53617-EIECOYP NAIL, 6 OR MORE 02/03/2020 09293-GOXYXPZ NAIL, 6 OR MORE 06/01/2020 94865-RCDHGHH NAIL, 6 OR MORE 08/10/2020 96679-TZVIOGD NAIL, 6 OR MORE 10/19/2020 07178-IQQBIBZ NAIL, 6 OR MORE 12/28/2020 61971-TYCQZXZ NAIL, 6 OR MORE 03/15/2021 09422-FJTNBJM NAIL, 6 OR MORE 05/16/2023 15666-GIDSVGK NAIL, 6 OR MORE 07/28/2023 05155-PNYCYPD NAIL, 6 OR MORE 10/06/2023 31415-JAVRHSW NAIL, 6 OR MORE 04/05/2024 07954-FOBLAAC NAIL, 6 OR MORE 07/12/2024 27471-QRVUYCX NAIL, 6 OR MORE 10/18/2024 49068-BPURGVQ NAIL, 6 OR MORE 01/24/2025 76798-OJBALKB NAIL, 1-5 08/12/2019 83742- Debride <25 sq cm 06/01/2020 30341- Debride <25 sq cm 02/03/2020 67766- Debride <25 sq cm 04/13/2022 68635-ARPITXY SKIN/TISSUE 07/12/2024 22525-MHMVXHC SKIN/TISSUE 01/24/2025 98634-EAGUUKD SKIN/TISSUE 10/18/2024 24576-RHDAXJV SKIN/TISSUE 05/16/2023 50992-KZWL SKIN LESIONS, OVER 4 05/16/20 55355-VXUN SKIN LESIONS, OVER 4 07/28/19 59788-PWFV SKIN LESIONS, OVER 4 04/05/20 08316-APDJ SKIN LESIONS, OVER 4 10/06/19 09001-KTVU SKIN LESIONS, OVER 4 10/19/19 66102-PWHQ SKIN LESIONS, OVER 4 01/25/20 67396-YICO SKIN LESIONS, OVER 4 07/12/19 16583-JCXY SKIN LESIONS, OVER 4 02/03/20 12341-FFDM SKIN LESIONS, OVER 4 06/01/20 23674-TAGO SKIN LESIONS, OVER 4 11/18/19 88778-NJYD SKIN LESIONS, OVER 4 03/15/20 95538-ZCLT SKIN LESIONS, OVER 4 12/29/19 28163-PAFD SKIN LESIONS, OVER 4 10/20/19 98070-HGAC SKIN LESIONS, OVER 4 08/10/19 12764-RHFP SKIN LESIONS, OVER 4 12/23/19 86659-OMSP SKIN LESIONS, OVER 4 10/12/19 36163-RSZQ SKIN LESIONS, OVER 4 08/02/19 45942-GHXO SKIN LESIONS, OVER 4 05/24/20 92491-XKDQ SKIN LESIONS, OVER 4 02/24/20 49609-MNPX SKIN LESIONS, OVER 4 11/03/19 19409-ITJV SKIN LESIONS, OVER 4 03/02/20 09112-WPXS SKIN LESIONS, OVER 4 08/30/19 88056-MAWA SKIN LESIONS, 2 TO 4 08/12/19 67003-Maej. Subungual Hematoma 3 Next Appt Details Provider Name:Cristofer Hilario , 05/02/2025 12:00:00 PM, [address] [place], [address], Insurance Providers Payer Name Payer Address Payer Phone Subscriber Number Group Number Insured Name Patient Relationship to Insured Coverage Start Date Coverage End Date [facility] [place] [employer] Claims [address] [facility] ALYSA Payne [address] [id number] Dora Fernandez Self - patient is the [...] Amputation, T6, T7 Hospitalization History Reason Date(Month/Year) [facility] 06/2024
--- OUTSIDE RECORDS SUMMARY | 2025-04-14 13:33 | XMS_ITS | Encounter Summary ---
Author Organization [employer] Address [address] [facility] 7t [place] [address] Care Team Providers Care Tank House Operator Name Role Phone Edwin Kirk MD Primary Care Provide r Isa Curry PharmD Unavailable [phone] Reason for Visit * Reason Comments Med Refill Encounter Details Date Type Department Care Team ([facility] st Contact Info) Description 10/25/2024 Refill [facility] [address] [place] [address] Sherrie Carey, ANP [address] [place] [address] Diabetic polyneuropathy associated with type 2 diabetes [...] Management [facility] [address] [place] [address] Isa Curry PharmD [address] [place] [address] documented as of this encounter Goals Goal [...] documented as of this encounter Care Teams Tank House Operator Relationship Specialty Start Date End Date Edwin Kirk MD [address] [place] [address] PCP - General Internal Medicine 03/31/14 Isa Curry, Vinod [address] [place] [address] Pharmacist Internal Medicine 09/05/24 [employer] 06/27/24 01/23/25 documented as of this encounter
--- OUTSIDE RECORDS SUMMARY | 2025-04-14 13:33 | XMS_ITS | Encounter Summary ---
Author Organization [employer] Address [address] [facility] 7t [place] [address] Care Team Providers Care Centerpuncher Name Role Phone Edwin Kirk MD Primary Care Provide r Isa Curry PharmD Unavailable [phone] Encounter Details Date Type Department Care Team ([facility] Contact Info) Description 12/12/2024 Telephone [facility] [address] [place] [address] Edwin Kirk MD [address] [place], [place] [phone] Social History Tobacco Use Types Packs/Day Years [...] Description 04/24/2025 10:00 AM EST Medication Management [facility] [address] [place] [address] Isa Curry PharmD [address] [place] [address] documented as of this encounter Goals Goal [...] documented as of this encounter Care Teams Centerpuncher Relationship Specialty Start Date End Date Edwin Kirk MD [address] [place] [address] PCP - General Internal Medicine 03/31/14 Isa Curry, PharmD [address] [place] [address] Pharmacist Internal Medicine 09/05/24 [employer] [facility] 06/27/24 01/23/25 documented as of this encounter
--- OUTSIDE RECORDS SUMMARY | 2025-04-14 13:33 | XMS_ITS | Encounter Summary ---
Author Organization [facility] Address [address] [place] [address] 7 [place] [address] Care Team Providers Care Diesel Instructor Name Role Phone Edwin Kirk MD Primary Care Provide r Isa Curry PharmD Unavailable [phone] Encounter Details Date Type Department Care Team (Late st Contact Info) Description 11/23/2022 [facility] Health Information Management [address] [place] [address] Edwin Kirk MD [address] [place], [place] [phone] Social History Tobacco Use Types Packs/Day Years [...] EST Medication Management [facility] [address] [place] [address] sIa Curry, PharmD [address] [place], [place] [phone] documented as of this encounter Visit Diagnoses Not on filedocumented in this encounter Care Teams Diesel Instructor Relationship Specialty Start Date End Date Edwin Kirk MD [address] [place], [place] [phone] PCP - General Internal Medicine 03/31/14 Isa Curry, Vinod [address] [place] [address] Pharmacist Internal Medicine 09/05/24 [employer] [facility] 06/27/24 01/23/25 documented as of this encounter
== END 2025-04-14 11:32 | disposition home or self-care (01) ==
LOC: HO.HGS 10:54
PROVIDERS: PCP Internal Medicine
DX: Z48.89 Encounter for other specified surgical aftercare (principal); Z89.421 Acquired absence of other right toe(s)
CPT/HCPCS: 99024

== ENCOUNTER → 2025-04-14 10:53 | Outpatient (BNVA) | payer OTHER, SELFPAY | PROVIDERS: PCP Internal Medicine | DX: S91.301D Unspecified open wound, right foot, subsequent encounter (principal); Z89.421 Acquired absence of other right toe(s); Z98.890 Other specified postprocedural states | CPT/HCPCS: 99212 ==

== ENCOUNTER 2025-04-17 09:43 | Outpatient (AMB) | payer OTHER, SELFPAY ==
--- OUTSIDE RECORDS SUMMARY | 2023-12-19 11:15 | XMS_ITS ---
Author Organization [facility] Address [address] [place] [phone] Care Team Providers Care Basketball Scout Name Role Phone Garry Zuleta MD, Edwin Primary Care Provide r Cristofer Owusu Unavailable [phone] Encounters Encounter Location Date Provider Diagnosis [address] [address] 12/19/2023 Cristofer Hilario Plan Of Treatment Next Appt Details Provider Name:Cristofer Hilario , 05/02/2025 12:00:00 PM, [address] [place] [address], [phone], Progress Notes * Dora FERNANDEZDOB:[birth year] (55 yo F)Acc No.[id number]:12/19/2023 Progress Note Patient: Tyler Dora MOSES Provider: Emily Hilario DPM :1970 A ge:53 Y S ex:Female Date:12/19/2023 Address:[address] [place] [address] rosio [id number] Pcp:Edwin Zuleta MD Subjective: * Chief Complaints: * * Medical History: Objective: * Vitals: Assessment: Plan: * Treatment: * Images: * The named appointment provid er may or may not be the originator of this progress note, and it is not deemed complete until electronically signed by the appointment provider. Sign off status: Pending * Provider: Emily Hilario DPM Date: 0 12/19/2023 Generated for Joseph Rockwell on: 11:23 AM EDT
--- OUTSIDE RECORDS SUMMARY | 2024-11-05 10:30 | XMS_ITS ---
Author Organization [facility] Address [address] [place] [phone] Care Team Providers Care Clinical Specialist Vascular Name Role Phone Garry Zuleta MD, Edwin Primary Care Provide r Cristofer Owusu Unavailable [phone] Encounters Encounter Location Date Provider Diagnosis [address] [address] 11/05/2024 Cristofer Hilario Plan Of Treatment Next Appt Details Provider Name:Cristofer Hilario , 05/02/2025 12:00:00 PM, [address] [place] [address], [phone], Progress Notes * Dora FERNANDEZDOB:[birth year] (55 yo F)Acc No.[id number]:11/05/2024 Progress Note Patient: Tyler Dora MOSES Provider: Emily Hilario DPM :1970 A ge:54 Y S ex:Female Date:11/05/2024 Address:[address] [place] [address] [place], [id number] Pcp:Edwin Zuleta MD Subjective: * Chief Complaints: [...] 0 11/05/2024 Generated for Joseph Rockwell on: 11:23 AM EDT
[2025-04-17 09:56] VITALS: BP 121/56; PULSE 81
--- NOTE | 2025-04-17 09:56 | A.OFFVIS_ITS ---
Vital Signs 3 04/17/25 09:56 Weight 350 lb BP 121/56 L Blood Pressure Location Rt radial Position Sitting Pulse 81 Intake Visit Reasons: wound check Intake Note: Patient here follow up wound check. S/p Amputation of the 5th toe, right foot, at the mid metatarsal level. Patient c/o: pain, tender to touch. Seen by wound care clinic on Monday. Reports opening after sutures removed. it looks worse I can see the bone. KEVIN (THAD): 04-14-2025 Skip Load Driver Required: No Accompanied by: Daughter Allergies No Known Allergies Allergy (Unknown, Verified 04/17/25 09:58) HPI HPI wound check: Details: Dora Fernandez presents today for a wound check. She underwent amputation of the right fifth toe at the mid metatarsal level on 04/01/25 for osteomyelitis of right fifth toe. She was seen on 04/14/25 for her first post op visit and her sutures were removed. Her incision was prior to suture removal at that time. She has [facility] for wound care every other day and her daughter had been caring for it as well. Silver alginate dressing was applied followed by fluffs, kerlix wrap and rosa. She was seen by the wound care center yesterday and they debrided the wound and stated their was bone visible. This scared the daughter and she asked for the patient to be seen in the office. The patient reports continued pain at the foot, somewhat improved but she continues to necessitate oxycodone and tylenol. [facility] Medical History (Updated 04/15/25 @ 09:09 by Adrian Godinez PA-C) Osteomyelitis of toe of right foot Foot ulcer, right Wound of foot Toe ulcer due to DM Arm swelling Restrictive lung disease Dyspnea on exertion Morbid obesity Gallstones Obesity due to excess calories Chronic kidney disease, stage 3 Charcot foot due to diabetes mellitus Depression Vitamin D deficiency Hyperlipidemia LDL goal <100 Hypertension Diabetic polyneuropathy Type 2 diabetes mellitus with chronic kidney disease Surgical History (Updated 04/15/25 @ 09:09 by Adrian Gdoinez PA-C) Hx of colonoscopy History of partial ray amputation of third toe of right foot Hx of wisdom tooth extraction History of partial amputation of toe (2018) History of total hysterectomy with bilateral salpingo-oophorectomy (BSO) Family History Father Type 2 diabetes mellitus Mother Type 2 diabetes mellitus Diverticulitis Hypertension Social History (Updated 03/27/25 @ 15:16 by Fatuma Gerber RN) Household Members: Family Household Members Other:: , mother Housing: Condominium Are you a primary manager long term care to a significant other at home: No Do you presently have visiting nurse or other home services: No Alcohol intake: former Comment: Counts correct Patient Tobacco Use Status: Never used Tobacco service: No Review of Systems Const All systems reviewed & are unremarkable except as noted in HPI and below Physical Exam Vital Signs: Last Vital Signs Pulse 81 04/17/25 09:56 BP 121/56 L 04/17/25 09:56 Const General: comfortable, no acute distress and alert Orientation/consciousness: patient oriented x3 Resp Effort & Inspection: normal respiratory effort and able to speak in complete sentences Skin Other: warm and dry Neuro General: patient oriented x3 and moves all extremities Extrem Other: right foot- some slough overlying the lateral foot wound, there is a separation/tunneling area of the wound mid forefoot with exposed ligament and small amount of palpable bone deep, no significant surrounding erythema or edema of the foot, no necrotic tissue present Assessment & Plan Assessment & Plan (1) Status post amputation of toe of right foot: Comment: Fourth and 5th toe. Code(s): Z89.421 - Acquired absence of other right toe(s) Category: Surgical Plan 55 year old female who amputation of the right fifth toe at the mid metatarsal level on 04/01/25 for osteomyelitis of right fifth toe. She has separation of the incision with tunneling of the wound and palpable bone. The wound is generally clean appearing with some overlying slough, no necrosis. No further debridement currently indicated. The patient and daughter were reassured the wound will heal but will need good daily local wound care and there is no evidence of active infection. Will change dressing to wet to dry saline soaked fluff followed by dry fluffs, abd dressing and kerlix wrap, rosa. Recommend changing the dressing daily and as needed. Continue with home VNA and follow up at the wound care center. She has a follow up appointment with the office on 05/05/25 which she can keep. She is to call to be seen sooner if she develops any concerns. Coding Level of Care Code Global (54461) Diagnoses Status post amputation of toe of right foot Z89.421
--- OUTSIDE RECORDS SUMMARY | 2025-04-17 11:22 | XMS_ITS | Encounter Summary ---
Author Organization [employer] Address [address] [facility] 7 [place] [address] Care Team Providers Care Green End Department Supervisor Name Role Phone Edwin Kirk MD Primary Care Provide r Isa Curry PharmD Unavailable [phone] Reason for Visit * Reason Comments Med Refill Encounter Details Date Type Department Care Team ([facility] st Contact Info) Description 12/26/2023 Refill [facility] MEDICINE [address] [place] [address] Annmarie Brewster MD [address] [place] [address] Heartburn Social History Tobacco Use Types Packs/Day [...] Description 04/24/2025 10:00 AM EST Medication Management [facility] MEDICINE [address] [place], [place] [phone] Isa Curry, PharmRadha [address] [place] [address] documented as of this encounter Visit Diagnoses Diagnosis Heartburn documented in this encounter Care Teams Green End Department Supervisor Relationship Specialty Start Date End Date Edwin Kirk MD [address] [place] [address] [phone] PCP - General Internal Medicine 03/31/14 Isa Curry, PharmD [address] [place] [phone] Pharmacist Internal Medicine 09/05/24 [employer] 06/27/24 01/23/25 documented as of this encounter
--- OUTSIDE RECORDS SUMMARY | 2025-04-17 11:22 | XMS_ITS | Encounter Summary ---
Author Organization [employer] Address [address] [facility] 7t [place] [address] Care Team Providers Care Health Physics Technician Name Role Phone Edwin Kirk MD Primary Care Provide r Isa Curry PharmD Unavailable Reason for Visit * Reason Comments Med Refill Encounter Details Date Type Department Care Team ([facility] st Contact Info) Description 12/26/2023 Refill [facility]INE [address] [place] [address] Edwin Kirk MD [address] [place], [place] [phone] Diabetic polyneuropathy associated with type 2 diabetes [...] Description 04/24/2025 10:00 AM EST Medication Management [facility] [address] [place] [address] Isa Curry PharmD [address] [place] [address] documented as of this encounter Visit Diagnoses Diagnosis Diabetic polyneuropathy associated with type 2 diabetes mellitus (HCC) Low vitamin D level documented in this encounter Care Teams Health Physics Technician Relationship Specialty Start Date End Date Edwin Kirk MD [address] [place] [id number] PCP - General Internal Medicine 03/31/14 Isa Curry PharmD [address] [place] [address] Pharmacist Internal Medicine 09/05/24 [employer] 06/27/24 01/23/25 documented as of this encounter
--- OUTSIDE RECORDS SUMMARY | 2025-04-17 11:22 | XMS_ITS | Encounter Summary ---
Author Organization [employer] Address [address] [facility] 7t [place] [address] Care Team Providers Care Shipping And Receiving Assistant Name Role Phone Edwin Kirk MD Primary Care Provide r Isa Curry PharmD Unavailable [phone] Encounter Details Date Type Department Care Team ([facility] st Contact Info) Description 10/12/2023 Orders Only [facility] MEDICINE [address] [place] [address] ProviderChasity MD Social History Tobacco Use Types [...] Description 04/24/2025 10:00 AM EST Medication Management [facility] [address] [place] [address] Isa Curry PharmD [address] [place] [address] documented as of this encounter Procedures Procedure Name Priority Date/Time Associated Diagnosis Comments HM COLONOSCOPY Routine 12/25/2018 7:41 AM EDT documented in this encounter Results * Hm Colonoscopy (12/25/2018 7:41 AM EDT) Historical Provider HEALTH MAINTENANCE Final Result documented in this encounter Visit Diagnoses Not on filedocumented in this encounter Care Teams Shipping And Receiving Assistant Relationship Specialty Start Date End Date Edwin Kirk MD [address] [place] [phone] PCP - General Internal Medicine 03/31/14 Isa Curry PharmD [address] [place] [phone] Pharmacist Internal Medicine 09/05/24 [employer] 06/27/24 01/23/25 documented as of this encounter
--- OUTSIDE RECORDS SUMMARY | 2025-04-17 11:22 | XMS_ITS | Encounter Summary ---
Author Organization [employer] Address 75 [facility] 7t [place] [address] Care Team Providers Care Legal Executive Assistant Name Role Phone Edwin Kirk MD Primary Care Provide r Isa Curry PharmD Unavailable [phone] Reason for Visit * Reason Comments Med Refill Encounter Details Date Type Department Care Team ([facility] st Contact Info) Description 04/14/2025 Refill [facility] MEDICINE [address] [place] [address] Edwin Kirk MD [address] [place], [place] [phone] Diabetic polyneuropathy associated with type 2 diabetes [...] EST Medication Management [facility] [address] [place] [address] Isa Curry PharmD [address] [place] [address] documented as of this encounter Goals Goal [...] documented as of this encounter Care Teams Legal Executive Assistant Relationship Specialty Start Date End Date Edwin Kirk MD [address] [place] [address] PCP - General Internal Medicine 03/31/14 Isa Curry, Vinod [address] [place] [address] Pharmacist Internal Medicine 09/05/24 documented as of this encounter
--- OUTSIDE RECORDS SUMMARY | 2025-04-17 11:22 | XMS_ITS | Encounter Summary ---
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 MEDICINE [address] [place] [address] Isa Curry, PharmD [address] [place], [place] [phone] Scheduled Orders Name Type Priority Associated Diagnoses [...] AM EDT) Calcitonin (Thyrocalcitonin) <2 <=5 pg/mL [facility] Comment:This test was perfor med using the SiemensChemiluminescent method. Values obtained withdifferent assay methods cannot be used interchangeably.Calcitonin levels, regardless of value, should not beinterpreted as absolute evidence of the presence orabsence of the disease.THIS TEST WAS PERFORMED AT:[id number] [place] [address]CFAZOQU W. 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
--- OUTSIDE RECORDS SUMMARY | 2025-04-17 11:22 | XMS_ITS | Encounter Summary ---
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 [...] Description 04/24/2025 10:00 AM EST Medication Management [facility] [address] [place] [address] Isa Curry PharmD [address] [place] [address] documented as of this encounter Goals Goal [...] long-term current use of insulin ([facility]) documented in this encounter Additional Health Concerns Assessment Noted Time PHQ-9 Depression Total Score: 12 025 10:37 AM EDT documented as of this encounter Care Teams Electronic Intelligence Officer Relationship Specialty Start Date End Date Edwin Kirk MD [address] [place] [address] PCP - General Internal Medicine 03/31/14 Isa Curry, Vinod [address] [place] [address] Pharmacist Internal Medicine 09/05/24 documented as of this encounter
--- OUTSIDE RECORDS SUMMARY | 2025-04-17 11:23 | XMS_ITS | Encounter Summary ---
Author Organization [employer] Address 75 [facility] 7t [place] [address] Care Team Providers Care Mill Operator Head Name Role Phone Edwin Kirk MD Primary Care Provide r Isa Curry PharmD Unavailable [phone] Encounter Details Date Type Department Care Team ([facility] Contact Info) Description 04/14/2025 Telephone [facility] MEDICINE [address] [place] [address] Edwin Kirk MD 230 [place], [place] [phone] Social History Tobacco Use Types Packs/Day Years [...] Description 04/24/2025 10:00 AM EST Medication Management [facility] [address] [place] [address] Isa Curry PharmD 230 [place] [address] documented as of this encounter Goals Goal [...] documented as of this encounter Care Teams Mill Operator Head Relationship Specialty Start Date End Date Edwin Kirk MD [address] [place] [address] PCP - General Internal Medicine 03/31/14 Isa Curry PharmD [address] [place] [address], [place] [address] Pharmacist Internal Medicine 09/05/24 documented as of this encounter
--- OUTSIDE RECORDS SUMMARY | 2025-04-17 11:23 | XMS_ITS | Encounter Summary ---
Author Organization [employer] [facility] Address [address] [facility] 7 [place] [address] Care Team Providers Care Textile Designs Sales Representative Name Role Phone Edwin Kirk MD Primary Care Provide r Isa Curry PharmD Unavailable [phone] Encounter Details Date Type Department Care Team (Late st Contact Info) Description 10/27/2022 Abstract [facility] MEDICINE [address] [place] [address] Edwin Kirk MD [address] [place], [place] [phone] Social History Tobacco Use Types Packs/Day Years [...] Description 04/24/2025 10:00 AM EST Medication Management [facility] MEDICINE 230 [place] [address] Isa Curry, PharmD [address] [place] [address] documented as of this encounter Visit Diagnoses Not on filedocumented in this encounter Care Teams [employer] Sales Representative Relationship Specialty Start Date End Date Edwin Kirk MD [address] [place] [address] PCP - General Internal Medicine 03/31/14 Isa Curry PharmD [address] [place] [address] Pharmacist Internal Medicine 09/05/24 [employer] 06/27/24 01/23/25 documented as of this encounter
--- OUTSIDE RECORDS SUMMARY | 2025-04-17 11:23 | XMS_ITS | Clinical Summary ---
Author Organization [employer] Address [address] [place] [address] Care Team Providers Care Field Care Manager Name Role Phone Edwin Kirk MD Primary Care Provide r Isa Curry PharmD Unavailable [phone] Allergies No known active allergies Medications buPROPion [...] by mouth 2 times daily. 024 Active Aspirin Low Dose 81 MG [...] long-term current use of insulin ([facility]) TEST BLOOD SUGAR TWICE DAILY 100 each 11 025 Active FREESTYLE LITE test stripIndications :Type 2 diabetes mellitus with diabetic neuropathic arthropathy, with long-term current use of insulin ([facility]) TEST BLOOD SUGAR TWICE DAILY 100 strip 11 025 Active insulin aspart (NovoLOG FLEXPEN) 100 UNIT/ML penIndications:T ype 2 diabetes mellitus with diabetic neuropathic arthropathy, with long-term current use of insulin ([facility]) IN 0 TO 12 UNITS [...] long-term current use of insulin ([facility]) INJECT 40 UNITS SUBCUTANEOUSLY AT BEDTIME 4.5 mL 5 025 Active Embecta Pen Needle Tonja 32G X 4 MM misc USE DIRECTED TO TEST BLOOD SUGAR FOUR TIMES DAILY 100 each 11 025 Active Tirzepatide (Mounjaro) 7.5 MG/0.5ML solution auto-injectorInd ications:Type 2 diabetes mellitus with diabetic neuropathic arthropathy, with long-term current use of insulin ([facility]) Inject 7.5 mg under the skin 1 (one) time per week. 2 mL 1 025 Active Blood Glucose Monitoring Suppl (FreeStyle Lite) w/Device kit 1 Device before breakfast, before lunch, and before evening meal. 1 kit 025 Active atorvastatin (Lipitor) 40 MG tablet Take 1 tablet (40 mg) by mouth at bedtime. 90 tablet 3 Active gabapentin (Neurontin) 300 MG capsuleIndicatio ns:Diabetic polyneuropathy associated with type 2 diabetes mellitus (HCC) TAKE 1 CAPSULE BY MOUTH TWICE DAILY IN THE MORNING AND AT BEDTIME 60 capsule Active eszopiclone (Lunesta) 3 MG tablet Take 1 tablet by mouth if needed at bedtime. 023 2024 Discontinued(M ed list cleanup (will not trigger notification to Pharmacy)) Blood Glucose Monitoring Suppl (FreeStyle Lite) w/Device kit 1 Device before breakfast, before lunch, and before evening meal. 1 kit 023 2024 Discontinued(R eorder (will not trigger notification to Pharmacy)) atorvastatin (Lipitor) 40 MG tablet TAKE 1 TABLET BY MOUTH AT BEDTIME 90 tablet 3 024 2024 Discontinued(R eorder (will not trigger notification to Pharmacy)) Tirzepatide (Mounjaro) 5 MG/0.5ML solution auto-injectorInd ications:Type 2 diabetes mellitus with diabetic neuropathic arthropathy, with long-term current use of insulin ([facility]) Inject 5 mg under the skin 1 (one) time per week. 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 84 tablet 025 2024 gabapentin (Neurontin) 300 MG capsuleIndicatio ns:Diabetic polyneuropathy [...] necrosis of muscle 06/20 Overview (07/17/2024): Admitted [facility] (06/24/2024 - 06/26/2024) for right foot [...] hours for 7 day Patient followed with [facility] general surgeons 07/08/2024 Dr. Lim recommending follow [...] & Plan (07/17/2024 9:37 AM EST): Admitted [facility] (06/24/2024 - 06/26/2024) for right foot [...] hours for 7 day Patient followed with [facility] general surgeons 07/08/2024 Dr. Lim recommending follow [...] Morbid obesity with BMI of 50.0-59.9, adult ([facility]) 01/09/2024 Assessment & Plan (10/10/2024 [...] EDT): Mammogram: NL : 03/20/2025 Pap Smear: 12 s/p ALYSSA Colonoscopy: 12/25/2018, [...] EDT): Mammogram: NL : 08/30/2021 Pap Smear: 5/12 s/p ALYSSA Colonoscopy: 12/25/2018, She was supposed [...] EDT): Televisit Underwent extensive cardiac evaluation by [employer] nuclear stress test done on 09/02/2022 with [...] day). Today pt's daughter tells me the [employer] Dr Mckeon cancelled the appointment. EKG today [...] Dental Exam: >6 months Recent hospitalization at [facility] 06/24/2024 - 06/26/2024. Saw CDTM on [...] Dental Exam: >6 months Recent hospitalization at [facility] 06/24/2024 - 06/26/2024. Saw CDTM on [...] Date Diagnosed Date Resolved Date Acute osteomyelitis (CMS/[facility]) 01/10/2023 01/09/2024 Assessment & Plan [...] Type Department Care Team Description 04/14/2025 Refill [facility] [address] [place] [address] Edwin Kirk MD Diabetic polyneuropathy associated with type 2 diabetes mellitus (HCC) 04/14/2025 Telephone [facility] [address] [place] [address] Edwin Kirk MD 04/14/2025 Refill [facility] [address], [place] [address] Edwin Kirk MD Diabetic polyneuropathy associated with type 2 diabetes mellitus (HCC) 04/04/2025 Refill [facility] [address] [place] [address] Isa Curry, PharmD Type 2 diabetes mellitus with diabetic neuropathic arthropathy, with long-term current use of insulin (HCC) 04/02/2025 Refill [facility] [address] [place] [address] Edwin Kirk MD 04/01/2025 Telephone [facility] [address] [place] [address] Edwin Kirk MD 04/01/2025 Orders Only GENERIC EXTERNAL DATA DEPARTMENT Provider, Generic External Data 03/27/2025 10:00 AM EDT Office Visit [facility] [place] [address] Edwin Kirk MD Osteomyelitis of fifth toe [...] current use of insulin (HCC) 03/27/2025 Telephone [facility] [address] [place] [address] Edwin Kirk MD Durable Medical Equipment 03/27/2025 Travel 03/26/2025 Telephone [facility] [address] [place] [address] Edwin Kirk MD chartprep 03/20/2025 Travel 03/14/2025 Refill [facility] [address] [place] [address] Edwin Kirk MD 03/14/2025 Refill [facility] [address] [place] [address] Edwin Kirk MD Diabetic polyneuropathy associated with type 2 diabetes mellitus ([facility]) 03/07/2025 Refill [facility] [address] [place] [address] Isa Curry, Vinod Type 2 diabetes mellitus with diabetic neuropathic arthropathy, with long-term current use of insulin ([facility]) 03/06/2025 Orders Only [facility] External Provider, [facility] 03/05/2025 Refill [facility] [address] [place] [address] Luh Weston MD Benign essential hypertension 02/13/2025 Telephone [facility] [address] [place] [address] Franklin Edwards MD MRI FOOT 02/06/2025 Telephone [facility] [address] [place] [address] Tram Merritt, RN Results 02/06/2025 Orders Only [facility] [address] [place], [place] [phone] Franklin Edwards MD Ulcer of right foot with necrosis of muscle ([facility]) (Primary Dx) 02/06/2025 Orders Only [facility] [address] [place] [address] Edwin Kirk MD 02/06/2025 Travel 01/16/2025 Refill [facility] [address] [place] [address] Edwin Kirk MD Low vitamin D level [...] Description 04/24/2025 10:00 AM EST Medication Management [facility] [address] [place], [place] [phone] Isa Curry, PharmD [address] [place], [place] [phone] Health Maintenance Due Date Last Done Comments [...] 8:05 AM EDT 04/01/2025 9:35 AM EDT [facility] LABS - 04/04/2025 1:36 PM EDT ----- ------- Name: Dora Fernandez Age/Sex: 55/F : 1970 [facility]#: [id number] Unit#: [id number] Attend Dr: Gwendolyn Lim MD Re04/01/25 Status: [facility] Location: [facility] Disch: ----- ------- SPEC : [id number] RECD: 04/01/25 STATUS: ROSASaima MENDOZA NUM: [id number] RYAN: 04/01/[address] [facility] [address]: Gwendolyn Lim MD ENTERED: 04/01/25 SP [...] bone is slightly softened, without additional abnormalities. Residency Director sections are submitted to include labor service representative soft tissue resection margin in cassette A1, bone resection margin in A2, area of skin ulcer in A3, bone underlying ulcer in A4 and labor service representative detached fragments of bone in A5 (cassettes 2, 4 and 5 following decalcification per order of Dr. Phillip). (DTL) IHC S/NG Disclaimer NOTE: Unless otherwise stated, all tissue is formalin-fixed and paraffin-embedded. Some or all of the immunohistochemical tests reported herein may have been developed and their performance characteristics determined by [facility]. They have not been cleared [...] Dora Fernandez Age/Sex: 55/F : 1970 Unit#: [id number] Attend Dr: Gwendolyn Lim MD Re04/01/25 Status[place] [facility] Location: [facility] Disch: ----- ------- SPEC : [id number] RECD: 04/01/25 STATUS: CHIDI SRINIVASAN NUM: [id number] RYAN: 04/01/[address]: Gwendolyn Lim MD ENTERED: 04/01/25 SP TYPE: Surgical OTHR DR: Edwin Benitez MD ORDERED: Gross Micro L4, Decal Copies To: Edwin Benitez MD [facility] [address] [place] [address] Gwendolyn Lim MD [facility] General Surgeons [address] [place] [address] ----- ------- Signed (signature on file) Shekhar Phillip MD 04/04/25 1336 ----- ------- END OF REPORT Generic External Data Provider LAB CYTOLOGY ORDE RABLES Final Result Performing Organization Address [facility]/ZIP Co de Phone Number [facility] [address] [place], [place] [phone] * (ABNORMAL) Glucose, Whole Blood (04/01/2025 6:38 AM EDT) [facility] Glucose, Whole Blood 138(H) 60 - 115 mg/dL [facility] Comment:METER #: [id number] 04/01/2025 6:38 AM EDT 04/01/2025 6:43 AM EDT Generic External Data Provider LAB BLOOD ORDERAB LES Final Result Performing Organization Address [facility]/ZIP Co de Phone Number [facility] [address] [place], [place] [phone] * POCT glucose manually resulted (03/27/2025 10:09 AM EDT) Glucose Blood, POC 159 60 - 200 mg/dL QC Media Lot # [id number] Lot# Expiration Date [id number] Blood Capillary blood specimen / Unknown 03/27/2025 [...] PM EDT Narrative 03/20/2025 8:46 AM EDT [facility] [address] [place] [address] Mammography Report Signed Patient: Dora Fernandez MR#: [id number] 005 : 1970 Acct:[id number] Age/Sex: 55 / F ADM Date: 03/19/25 Loc: GEMINI Attending Dr: Edwin Benitez MD Ordering Physician: Edwin Benitez MD Resu lts: 1Negative Date of Service: 03/19/25 Follow Up: 1 Year From Orig inal Mammogram Procedure(s): MM tomosynthesis screening BI Accession Number(s): [id number] cc: Edwin Benitez MD Reason For Exam: [...] 03/20/25 0843 DD/ 1456 TD/TT: 03/19/25 1518 Evaporator Helper: Procedure Note Donotuseinterpreter, Image - 03/20/2025 [facility] [address] [place] [address] Mammography Report Signed Patient: Dora Fernandez#: [id number] 005 : 1970Acct:[id number] Age/Sex: 55 / FADM Date: 03/19/25 Loc: HO.MAMMO Attending Dr: Edwin Benitez MD Ordering Physician: Edwin Benitez MDResu lts: 1Negative Date of Service: 03/19/25Follow Up: 1 Year From Orig inal Mammogram Procedure(s): MM tomosynthesis screening BI Accession Number(s): [id number] cc: Edwin Benitez MD Reason For Exam: [...] 03/20/25 0843 DD/ 1456 TD/TT: 03/19/25 1518 Evaporator Helper: us Edwin Zuleta MD IMG BI PROCEDURES Miguelito hector Result - Final * MR Arevalo w/ and w/o Contrast Right (03/06/2025 8:30 AM EDT) Anatomical Region Laterality Modality Lower Extremities, Foot Right Magnetic Resonance 03/06/2025 8:30 AM EDT Narrative 03/06/2025 3:29 PM EDT [place] [address] Magnetic Resonance Report Signed Patient: Dora Fernandez MR#: [id number] 005 : 1970 Acct:[id number] Age/Sex: 54 / F ADM Date: 03/06/25 Loc: HO.MRI Attending Dr: Marlene Tiwari MD Ordering Physician: Marlene Tiwari MD Date of Service: 03/06/25 Procedure(s): MR arevalo RT wo/w con Accession Number(s): [id number] cc: Franklin Edwards MD; Marlene Tiwari MD; [...] 03/06/25 1527 DD/ 0830 TD/TT: 03/06/25 0911 Evaporator Helper: Procedure Note Donotuseinterpreter, Image - 03/06/2025 [place] [address] Magnetic Resonance Report Signed Patient: Dora Fernandez#: [id number] 005 : 1970Acct:[id number] Age/Sex: 54 / FADM Date: 03/06/25 Loc: HO.MRI Attending Dr: Marlene Tiwari MD Ordering Physician: Marlene Tiwari MD Date of Service: 03/06/25 Procedure(s): MR foot RT wo/w con Accession Number(s): [id number] cc: Franklin Edwards MD; Marlene Tiwari MD; [...] 03/06/25 1527 DD/ 0830 TD/TT: 03/06/25 0911 Evaporator Helper: [facility] External Provider IMG MRI PROCEDURES Final Result * XR Foot 3+ Views Right (02/06/2025 11:50 AM EDT) Anatomical Region Laterality Modality Lower Extremities, Foot Right Radiogra phic Imaging 02/06/2025 11:5 0 AM EDT Narrative 02/06/2025 12:41 PM EDT [place] [address] XRay Report Signed Patient: Dora Fernandez MR#: [id number] 005 : 1970 Acct:[id number] Age/Sex: 54 / F ADM Date: 02/06/25 Loc: HO.HHCL Attending Dr: Edwin Benitez MD Ordering Physician: Edwin Benitez MD Date of Service: 02/06/25 Procedure(s): XR foot RT min 3V Accession Number(s): [id number] cc: Edwin Benitez MD EXAMINATION: XR FOOT, [...] 02/06/25 1238 DD/ 1150 TD/TT: 02/06/25 1156 Evaporator Helper: Procedure Note Donotuseinterpreter, Image - 02/06/[address] [address] XRay Report Signed Patient: Dora Fernandez#: [id number] 005 : 1970Acct:[id number] Age/Sex: 54 / FADM Date: 02/06/25 Loc: HO.HHCL Attending Dr: Edwin Benitez MD Ordering Physician: Edwin Benitez MD Date of Service: 02/06/25 Procedure(s): XR foot RT min 3V Accession Number(s): [id number] cc: Edwin Benitez MD EXAMINATION: XR FOOT, [...] 02/06/25 1238 DD/ 1150 TD/TT: 02/06/25 1156 Evaporator Helper: us Edwin Zuleta MD IMG XR PROCEDURES Fin al Result * Calcitonin (02/06/2025 11:23 AM EDT) Pathologist [facility] Calcitonin (Thyrocalcitonin) <2 <=5 pg/mL [facility] Comment:This test was perfor med using the SiemensChemiluminescent method. Values obtained withdifferent assay methods cannot be used interchangeably.Calcitonin levels, regardless of value, should not beinterpreted as absolute evidence of the presence orabsence of the disease.THIS TEST WAS PERFORMED AT:[employer] [id number] [place] [address]IKLDUSIALEXANDER CUETO MD,PHD 02/06/2025 11:2 3 AM EDT 02/06/2025 12:56 PM EDT us Generic External Data Provider LAB BLOOD ORDERAB LES Final Result [facility] [address] [place] [phone] [phone] * (ABNORMAL) CBC auto differential (02/06/2025 11:13 AM EDT) Pathologist [facility] White Blood Count 6.6 4.8 - 10.8 X10*3/uL [facility] Red Blood Count 4.26 4.20 - 5.50 X10*6/uL [facility] Hemoglobin 11.6(L) 12.0 - 16.0 g/dl [facility] Hematocrit 35.6(L) 37.0 - 47.0 % [facility] Mean Corpuscular Volume 83.6 80.0 - 98.0 fL [facility] Mean Corpuscular Hemoglobin 27.2 27.0 - 33.0 pg [facility] Mean Corpuscular HGB Conc 32.6 31.0 - 35.0 g/dl [facility] Red Cell Distribution Width 13.1 11.0 - 16.0 % [facility] Platelet Count 265 160 - 400 X10*3/uL [facility] Mean Platelet Volume 11.7 9.4 - 12.3 fL [facility] Neutrophils Percent Auto 55.6 45 - 73 % [facility] Imm Gran Pct Auto 0.6(H) 0.0 - 0.4 % [facility] Lymphocytes Percent Auto 26.4 20 - 40 % [facility] Monocytes Percent Auto 8.6 2 - 11 % [facility] Eosinophils Percent Auto 8.0(H) 0 - 4 % [facility] Basophils Percent Auto 0.8 0 - 2 % [facility] NRBC Pct Auto 0.0 0.0 - 0.2 /100WBC [facility] Neutrophils Absolute Auto 3.7 2.0 - 8.3 x10*3/uL [facility] Imm Gran Abs Auto 0.04(H) 0.00 - 0.03 X10*3/uL [facility] Lymphocytes Absolute Auto 1.7 1.2 - 4.9 X10*3/uL [facility] Monocytes Absolute Auto 0.6 0.1 - 1.2 X10*3/uL [facility] Eosinophils Absolute Auto 0.5(H) 0.0 - 0.4 X10*3/uL [facility] Basophils Absolute Auto 0.1 0.0 - 0.2 X10*3/uL [facility] NRBC Abs Auto 0.000 0.0 - 0.012 X10*3/uL [facility] 02/06/2025 11:1 3 AM EDT 02/06/2025 12:56 PM EDT Generic External Data Provider LAB BLOOD ORDERAB LES Final Result Performing Organization Address [facility] Co de Phone Number [facility] [address] [place] [phone] * (ABNORMAL) Sed Rate by Modified Isrraelergren (02/06/2025 11:13 AM EDT) Erythrocyte Sedimentation Rate 21(H) 0 - 20 MM/HR [facility] Comment:Patients with polycy themia and many hemoglobin abnormalitiesmay have depressed sed rates whereas patients with anemiamay have elevated sed rates. 02/06/2025 11:1 3 AM EDT 02/06/2025 12:56 PM EDT Generic External Data Provider LAB BLOOD ORDERAB LES Final Result Performing Organization Address [facility] Co de Phone Number [facility] [address] [place] [phone] * (ABNORMAL) C-reactive Protein (02/06/2025 11:13 AM EDT) C Reactive Protein 2.66(H) < or = 0.50 mg/dL [facility] 02/06/2025 11:1 3 AM EDT 02/06/2025 12:56 PM EDT Generic External Data Provider LAB BLOOD ORDERAB LES Final Result Performing Organization Address [facility] Co de Phone Number [facility] [address] [place] [phone] * (ABNORMAL) Hemoglobin A1c (02/06/2025 11:13 AM EDT) Hemoglobin A1c 7.2(H) <6.0 % [facility] Comment:Hemoglobin A1C Refer ence Range Adults: 4.8 - 6.0 % Non diabetic: < 6.0 % Goal: < 7.0 %Additional Action Suggested: > 8.0 %Note: Hemoglobin A1c results are invalid for patients with abnormal amounts of HbF. Blood transfusions may impact the HbA1c concentration in the patient sample. Estimated Average Glucose 160 mg/dL [facility] Comment:eAG = Estimated ave rage glucose which is %A1C expressed asaverage glucose, using the formula of the J8K-LrwbzzaAehrtcu Glucose study (ADAG), Diabetes Care, Vol.31,#8,Jan. 2007 02/06/2025 11:1 3 AM EDT 02/06/2025 12:56 PM EDT us Generic External Data Provider LAB BLOOD ORDERAB LES Final Result Performing Organization Address [facility] Co de Phone Number [facility] [address] [place] [phone] * Albumin, Random Urine W/Creatinine (01/27/2025 9:31 AM EDT) Creatinine, Urine 168.19 mg/dL [facility] Microalbumin Urine 17.0 mg/L [facility] Microalbum Creatinine Ratio Ur 10.1 <30 ug/mg cr [facility] Comment:Albumin/Creatinine R atio Reference Ranges: Normal: < 30 ug/mg creatinine Microalbuminuria: 30 - 300 ug/mg creatinineClinical Albuminuria: > 300 ug/mg creatinine Urine (Urine, Random) 01/27/2025 9:31 AM EDT 01/27/2025 11:14 AM EDT us Edwin Zuleta MD LAB URINE ORDERABLES Final Result Performing Organization Address [facility]/ZIP Co de Phone Number [facility] [address] [place] [phone] * Lipid Panel, Standard (01/27/2025 9:31 AM EDT) Triglycerides 64 <150 mg/dL [facility] Comment:Desirable Triglyceri de: less than 150 mg/dLBorderline High Triglyceride 150-199 mg/dLHigh Triglyceride: 200-499 mg/dLVery High Triglyceride: greater than or equal to 5OO mg/dL Cholesterol 134 <200 mg/dL [facility] Comment:Desirable Cholestero l: less than 200 mg/dLBorderline High Cholesterol: 200-239 mg/dLHigh Cholesterol: greater than 239 mg/dL LDL Cholesterol Calculated 61 <100 mg/dL [facility] Comment:Desirable LDL: less than 100 mg/dLNear Optimal/Above Optimal LDL: 110- 129 mg/dLBorderline High LDL: 130-159 mg/dLHigh LDL: 160-189 mg/dLVery High LDL: greater than or equal to 190 mg/dL HDL Cholesterol 61 >40 mg/dL [facility] Comment:Desirable HDL: great er than 40 mg/dL Note: This HDL assay may give artificially low results in patients with liver disease. Blood Venous blood specimen / Unknown 01/27/2025 9:31 AM EDT 01/27/2025 11:22 AM EDT us Edwin Zuleta MD LAB BLOOD ORDERABLES Final Result [facility] [address] [place] [phone] * (ABNORMAL) Comprehensive Metabolic Panel (01/27/2025 9:31 AM EDT) Sodium 142 135 - 145 mmol/L [facility] Potassium 4.5 3.3 - 5.1 mmol/L [facility] Chloride 102 96 - 108 mmol/L [facility] Carbon Dioxide 31(H) 22 - 29 mmol/L [facility] Anion Gap 14 12 - 20 [facility] Urea Nitrogen (BUN) 28(H) 9 - 16 mg/dL [facility] Creatinine, Serum 1.35 0.5 - 1.4 mg/dL [facility] Estimated Glomerular Filt Rate 41 [facility] Comment:Chronic Kidney Disea se: Estimated GFR < 60 mL/min/1.89x7Diqvcc Kidney Disease: Estimated GFR < 15 mL/min/1.73m2 Glucose 108 60 - 115 mg/dL [facility] Calcium 9.3 8.4 - 10.2 mg/dL [facility] Bilirubin, Total 0.3 0.0 - 1.0 mg/dL [facility] Aspartate Amino Transferase 27 5 - 31 U/L [facility] Alanine Aminotransferase 17 0 - 31 U/L [facility] Total Protein 8.1(H) 6.5 - 8.0 g/dL [facility] Albumin Level 4.3 3.5 - 5.0 g/dL [facility] Alkaline Phosphatase 103 39 - 117 U/L [facility] Blood Venous blood specimen / Unknown 01/27/2025 9:31 AM EDT 01/27/2025 11:22 AM EDT Edwin Zuleta MD LAB BLOOD ORDERABLES Final Result Performing Organization Address [facility]/ZIP Co de Phone Number [facility] [address] [place] [phone] * HEPATITIS C AB W/REFL TO HCV RNA, QN, PCR (02/25/2022 9:25 AM EDT) HEPATITIS C ANTIBODY NON-REACT [facility] NON-REACT [facility] INDEX 0.08 <1.00 [facility] Comment: HCV antibody was non-reactive. There is no laboratory evidence of HCV infection. In most cases, no further action is required. However, if recent HCV exposure is suspected, a test for HCV RNA (test code 80075) is suggested. For additional information please refer to http://education.Brightfish.Myntra/faq/CTQ00h7 (This link is being provided for informational/ educational purposes only.) 02/25/2022 9:25 AM EDT Edwin Zuleta MD HISTORICAL/NON ORDERA BLE LABS Final Result Performing Organization Address City/[facility]/ZIP Co de Phone Number [facility] [address] [place] [address], * Hm Colonoscopy (12/25/2018 7:41 AM EDT) us Historical Provider HEALTH MAINTENANCE Final Result from Last 3 Months or Most Recently Relevant to Health Maintenance Insurance ALYSA CHAN [id number] Care Teams Field Care Manager Relationship Specialty Start Date End Date Edwin Kirk MD [address] [place] [address] PCP - General Internal Medicine 03/31/14 Isa Curry PharmD [address] [place] [phone] Pharmacist Internal Medicine 09/05/24
--- OUTSIDE RECORDS SUMMARY | 2025-04-17 11:23 | XMS_ITS | Encounter Summary ---
Author Organization [employer] Address [address] [facility] 7t [place] [address] Care Team Providers Care Plant Health Manager Name Role Phone Edwin Kirk MD Primary Care Provide r Isa Curry PharmD Unavailable [phone] Encounter Details Date Type Department Care Team ([facility] st Contact Info) Description 04/14/2025 Refill [facility] MEDICINE [address] [place] [address] Edwin Kirk MD [address] [place] [address] Diabetic polyneuropathy associated with type 2 diabetes [...] Medication Management [facility] MEDICINE [address] [place] [address] Isa Curry PharmD [address] [place] [address] documented as of this encounter Goals Goal [...] documented as of this encounter Care Teams Plant Health Manager Relationship Specialty Start Date End Date Edwin Kirk MD [address] [place] [address] PCP - General Internal Medicine 03/31/14 Isa Curry, Vinod [address] [place] [address] Pharmacist Internal Medicine 09/05/24 documented as of this encounter
--- OUTSIDE RECORDS SUMMARY | 2025-04-17 11:23 | XMS_ITS | Encounter Summary ---
Author Organization [employer] Address 75 [facility] 7t [place] [address] Care Team Providers Care Marketing Data Specialist Name Role Phone Edwin Kirk MD Primary Care Provide r Isa Curry PharmD Unavailable [phone] Encounter Details Date Type Department Care Team ([facility] Contact Info) Description 12/12/2024 Telephone [facility] MEDICINE [address] [place] [address] Edwin Kirk MD [address] [place], [place] [phone] Social History Tobacco Use Types Packs/Day Years [...] 04/24/2025 10:00 AM EST Medication Management [facility] MED[facility]INE [address] [place] [address] Isa Curry PharmD [address] [place] [address] documented as of this encounter Goals Goal [...] documented as of this encounter Care Teams Marketing Data Specialist Relationship Specialty Start Date End Date Edwin Kirk MD [address] [place] [address] PCP - General Internal Medicine 03/31/14 Isa Curry, PharmD [address] [place] [address] Pharmacist Internal Medicine 09/05/24 [employer] [facility] 06/27/24 01/23/25 documented as of this encounter
--- OUTSIDE RECORDS SUMMARY | 2025-04-17 11:23 | XMS_ITS | Data Portability ---
Author Organization [place] [employer] [facility] Address [address] [place] [address] Care Team Providers Care Hat Binder Name Role Phone Unavailable Referring Provider Assessment Encounter Date Assessment Date Assessment LastModified by Organization Details LastModified Time 01/03/2023 01/03/2023 I provided real -time medical direction via phone for this encounter, and was available for additional phone based assistance as needed. I have reviewed and agree with the Assessment and Plan as documented by the Human Resources Benefits Specialist. Patient given the opportunity to ask questions. Advised if develops CP/severe SOB/turning blue/uncontrolle d n/v/d or black/bloody emesis or stool/ AMS/ syncope/redness extending up the leg or high fever to call 911- verbalized understanding of instructions [email or web address] Not available 01/04/2023 10:40:07 Plan of Treatment Reminders Order Date Submit Date Provider Last Modified By Organization Details Last Modified Time Details Appointments None recorded. Lab BMP, serum or plasma 2022 023 [email or web address], [phone] 3 13:54:32 glucose, fingerstick , blood 2022 023 [email or web address], [address] 3 13:16:40 Referral None recorded. Procedures None recorded. Surgeries None recorded. Imaging None recorded. Medication Orders sodium chloride 0.9 % intravenous solution 2022 023 [email or web address] 0 Not available 3 13:16:40 bacitracin 500 unit/gram topical ointment 2022 023 [facility], [address] [place] [address], [id number], 3 12:54:15 bacitracin 500 unit/gram topical ointment 2022 023 [email or web address] 0 [facility], [address] [facility], [place], [place], [phone], 3 13:54:32 Patient TargetsNo targets recorded. Patient InstructionsNo instructions recorded. Reason for Referral None Reported. Results Created Date Observation Date Name Description Value Unit Range Abnormal Flag Note LastModifiedBy Organization Detail LastModifiedTime 01/04/2001/03/2023 BMP, serum or plasm a BUN 18 Not Available Main - Ins [address], [address] [place] [address] 01/03/2023 13:17:08 01/04/20 23 01/03/2023 BMP, serum or plasm a Ca I hanh 1.12 Not Available Main - [address], [address] [place] [address] 01/03/2023 13:17:08 01/04/2001/03/2023 BMP, serum or plasm a CI- 100 Not Available Main - Ins [address], [address] [place] [address] 01/03/2023 13:17:08 01/04/20 23 01/03/2023 BMP, serum or plasm a CRE 1 Not Available Main - Ins [address], [address] 01/03/2023 13:17:08 01/04/20 23 01/03/2023 BMP, serum or plasm a GLU 439 Not Available Main - [facility] [address], [address] 01/03/2023 13:17:08 01/04/20 23 01/03/2023 BMP, serum or plasm a K+ 4.6 Not Available Main - [facility] [address], [address] [place] [address] 01/03/2023 13:17:08 01/04/20 23 01/03/2023 BMP, serum or plasm a Na+ 136 Not Available Main - Ins [address], [address] 01/03/2023 13:17:08 01/04/2001/03/2023 BMP, serum or plasm a tCO2 27 Not Available Main - Ins hector [address] [place] [address], [phone] 01/03/2023 13:17:08 01/04/2001/03/2023 gluco ana fernandez, blood Blood Glucose: mg/dl 515 Not Available Main - [facility] [address] [place] [address], [address] 01/03/2023 13:06:57 Result Notes None recorded. Medical [...] active Not Available Not Available Not Available [facility] U-300 Insulin 300 unit/mL (1.5 mL) [...] Available No t Available Vitals Date Recorded Body weight Provider Name an d Address Organization Details Last Updated DateTime 01/03/2023 184365.37 g Ana Springer [address] [facility],[address] [facility], [place], [address], [place] - [employer] 01/03/2023 13:00:08 Date Recorded Oxygen saturation Oxygen saturation in Arterial blood by Pulse oximetry Respiratory rate Body temperature Heart rate Systolic And Diastolic Provider Name and Address Organization Details Last Updated DateTime 3 96 % 96 % 18 /min 98.2 [degF] 78 /min 140/94 mm[Hg] Not Available [facility] [employer] 3 12:56:03 Social History None recorded. Functional Status None recorded. Mental Status None recorded. Family History Nothing Reported. Medical History No medical history recorded. Gynecological HistoryNo gynecological history recorded. Obstetrics History GPAL:G 0 P 0 0 0 0 Past Encounters Encounter ID Performer Location Encounter Start Date Encounter Closed Date Diagnosis/Indication Diagnosis SNOMED-CT Code Diagnosis ICD10 Code Diagnosis IMO Codes Diagnosis Note [id number] Cinthya Bowers MD Main - [facility] [address] [place] [phone] 01/03/2023 12:55:53 01/04/2023 09:10:33 Osteomyelitis 40707926 M86.9 w/ open wound 4 th toe- -patient does not have a wound care appointmen t until 01/09/2023 and she has an appointmen t with her PCP 01/10. They could not get into see a business functional analyst until February- advised to discuss with PCP [...] loose gauze dressing twice a day. Hyperglycemia [id number] R 73.9 stay well hydrated w/ SF [...] Recorded Advance Directives Directive None Recorded Payers Insurance Date Sequence Insurance Name Policy Number Policy Weller Covered Member ID Weller Member ID Guarantor Name 08/13/2023 1 [facility] - DOS ON OR AFTER 2022 - DUAL ELIGIBLE - [employer] OPTIONS AND ONE CARE (MEDICARE REPLACEMENT/AD VANTAGE - HMO) Dora Fernandez [id number] Dora Fernandez Notes Date Note Type Note Provider Name and Address Organization Details Recorded Time 01/03/2023 text/html ROS as noted in the HPI HPI: Patient HX: Anemia,HTN, Obesity........... .................. .................. .................. .................. .................. .................. .................. .... CRC Nursing Assessment: Comments: CRC RN did not require any additional information to process this visit. .................. .................. .................. .................. .................. .................. .................. ............... Human Resources Benefits Specialist Note From Gabriella Agrawal: Community Human Resources Benefits Specialist Curt Agrawal CCA1 dispatched to a [facility] for a 52 yof in need of wound care/assessment. Upon arrival, the pt was ambulatory w/ a UVALDO wagoner X4, in no apparent distress. Her daughter/quantitative analyst developer translated for her (Yi speaking only). She stated that she noticed [...] assessed and bandaged the toe prior to [facility] arrival that day. [facility] in [facility]; the first of the initial injury, the second the day of [facility] visit. [facility] consulted; pt was given clear [...] was informed she could not get a business functional analyst appointment until Monday. She has an appointment with wound care outpatient on 01/09 and an appointment with her PCP on 01/10/2023 Cinthya Bowers MD [address] [place] [address],[address], [place], [address], RENEE - [employer], SATHYA 01/04/2023 10:42:10 OBGyn Episode No OBEpisode recorded.
--- OUTSIDE RECORDS SUMMARY | 2025-04-17 11:23 | XMS_ITS | Encounter Summary ---
Author Organization [employer] Address [address] [place] [address] 7 [place] [address] Care Team Providers Care Financial Internship Name Role Phone Edwin Kirk MD Primary Care Provide r Isa Curry PharmD Unavailable [phone] Encounter Details Date Type Department Care Team (Late st Contact Info) Description 11/23/2022 [facility] Health Information Management [address] [place] [address] Edwin Kirk MD [address] [place], [place] [phone] Social History Tobacco Use Types Packs/Day Years [...] Description 04/24/2025 10:00 AM EST Medication Management [facility] MEDICINE 230 [place] [address] Isa Curry, PharmD [address] [place], [place] [phone] documented as of this encounter Visit Diagnoses Not on filedocumented in this encounter Care Teams Financial Internship Relationship Specialty Start Date End Date Edwin Kirk MD [address] [place], [place] [phone] PCP - General Internal Medicine 03/31/14 Isa Curry, Vinod [address] [place] [address] Pharmacist Internal Medicine 09/05/24 [employer] 06/27/24 01/23/25 documented as of this encounter
--- OUTSIDE RECORDS SUMMARY | 2025-04-17 11:23 | XMS_ITS | Encounter Summary ---
Author Organization [employer] Address [address] [facility] 7t [place] [address] Care Team Providers Care Mash Preparatory Operator Name Role Phone Edwin Krik MD Primary Care Provide r Isa Curry PharmD Unavailable [phone] Reason for Visit * Reason Onset Date Comments Hospital Follow-up 06/26/2024 Encounter Details Date Type Department Care Team ([facility] st Contact Info) Description 06/26/2024 Telephone [facility] MEDICINE [address] [place] [address] Edwin Kirk MD [address] [place], [place] [phone] Hospital Follow-up Social History Tobacco Use Types [...] from pt requesting a HDF appt. Hospital: [facility] Date of admission: 06/24/24 Discharge date: 06/26/24 Diagnosed: Foot infection *Send message to [place] Clinical Care Coordinators documented in this encounter Plan of Treatment Upcoming Encounters Date Type Department Care Team (Late st Contact Info) Description 04/24/2025 10:00 AM EST Medication Management [facility] MEDICINE [address] [place] [address] Isa Curry PharmD [address] [place] [address] documented as of this encounter Goals Goal [...] documented as of this encounter Care Teams Mash Preparatory Operator Relationship Specialty Start Date End Date Edwin Kirk MD [address] [place] [address] PCP - General Internal Medicine 03/31/14 Isa Curry PharmD [address] [place] [address] Pharmacist Internal Medicine 09/05/24 [employer] 06/27/24 01/23/25 documented as of this encounter
--- OUTSIDE RECORDS SUMMARY | 2025-04-17 11:23 | XMS_ITS | Encounter Summary ---
Author Organization [employer] Address 75 [facility] 7t [place] [address] Care Team Providers Care Occup Ther Name Role Phone Edwin Kirk MD Primary Care Provide r Isa Curry PharmD Unavailable [phone] Reason for Visit * Reason Comments Med Refill Encounter Details Date Type Department Care Team ([facility] st Contact Info) Description 05/17/2024 Refill [facility] MEDICINE [address] [place] [address] Edwin Kirk MD [address] [place] [address] Type 2 diabetes mellitus with diabetic neuropathic arthropathy, with long-term current use of insulin ([facility]) Social History Tobacco Use Types [...] Management [facility] MEDICINE [address] [place] [address] Isa Curry PharmD [address] [place] [address] documented as of this encounter Goals Goal [...] documented as of this encounter Care Teams Occup Ther Relationship Specialty Start Date End Date Edwin Kirk MD [address] [place] [address] PCP - General Internal Medicine 03/31/14 Isa Curry PharmD [address] [place] [address] Pharmacist Internal Medicine 09/05/24 [employer] [facility] 06/27/24 01/23/25 documented as of this encounter
--- OUTSIDE RECORDS SUMMARY | 2025-04-17 11:24 | XMS_ITS | Encounter Summary ---
Author Organization [employer] Address [address] [facility] 7t [place] [address] Care Team Providers Care Starch Treating Assistant Name Role Phone Edwin Kirk MD Primary Care Provide r Isa Curry PharmD Unavailable [phone] Reason for Visit * Reason Comments Med Refill Encounter Details Date Type Department Care Team ([facility] st Contact Info) Description 10/25/2024 Refill [facility] MEDICINE [address] [place] [address] Sherrie Carey, ANP [address] [place] [address] Diabetic polyneuropathy associated with type 2 diabetes [...] Management [facility] MEDICINE [address] [place] [address] Isa Curry PharmD [address] [place] [address] documented as of this encounter Goals Goal [...] documented as of this encounter Care Teams Starch Treating Assistant Relationship Specialty Start Date End Date Edwin Kirk MD [address] [place] [address] PCP - General Internal Medicine 03/31/14 Isa Curry, Vinod [address] [place] [address] Pharmacist Internal Medicine 09/05/24 [employer] [facility] 06/27/24 01/23/25 documented as of this encounter
--- OUTSIDE RECORDS SUMMARY | 2025-04-17 11:24 | XMS_ITS | Encounter Summary ---
Author Organization [employer] Address [address] [facility] 7t [place] [address] Care Team Providers Care Game Advisor Name Role Phone Edwin Kirk MD Primary Care Provide r Isa Curry PharmD Unavailable [phone] Reason for Visit * Reason Comments Med Refill Encounter Details Date Type Department Care Team ([facility] st Contact Info) Description 10/25/2024 Refill [facility] MEDICINE [address] [place] [address] Sherrie Carey, ANP [address] [place] [address] Diabetic polyneuropathy associated with type 2 diabetes [...] Description 04/24/2025 10:00 AM EST Medication Management [facility] MEDICINE [address] [place] [address] Isa Curry PharmD [address] [place] [address] documented as of this encounter Goals Goal [...] documented as of this encounter Care Teams Game Advisor Relationship Specialty Start Date End Date Edwin Kirk MD [address] [place] [address] PCP - General Internal Medicine 03/31/14 Isa Curry, Vinod [address] [place] [address] Pharmacist Internal Medicine 09/05/24 [facility] 06/27/24 01/23/25 documented as of this encounter
--- OUTSIDE RECORDS SUMMARY | 2025-04-17 11:24 | XMS_ITS | Patient Health Record ---
Author Organization [facility] Address [address] [place] [address] Care Team Providers Care Multiple Slide Operator Name Role Phone Garry Zuleta MD, Edwin Primary Care Provide r Unavailable Cristofer Hilario Unavailable [phone] Allergies No Known Allergies Results Component Value [...] Problem Acquired hammer toe of right foot (763474165964008 5) Other hammer toe(s) (acquired), right foot (M20.41) Active confirmed Problem Acquired hammer toe of left foot (847110260548271 3) Other hammer toe(s) (acquired), left foot (M20.42) Active confirmed Problem Polyneuropathy due to type 2 diabetes mellitus (722153385) Type 2 diabetes mellitus with diabetic polyneuropathy [...] Ordered Date Performed Result Body Sit e 86417-XPXQICN NAIL, 6 OR MORE 07/12/2024 N/A 16796-NPMPXIJ SKIN/TISSUE 07/12/2024 N/A 79093-URBJ SKIN LESIONS, OVER 4 07/12/2024 N/A 55365-YSGHUTM NAIL, 6 OR MORE 10/18/2024 N/A 38074-GYUSCSE SKIN/TISSUE 10/18/2024 N/A 61152-SHLR SKIN LESIONS, OVER 4 10/18/2024 N/A 05930-WOCABIP NAIL, 6 OR MORE 01/24/2025 N/A 29000-CXLXFNL SKIN/TISSUE 01/24/2025 N/A 78460-TLEQ SKIN LESIONS, OVER 4 01/24/2025 N/A Encounters Encounter Location Date Provider Diagnosis [address] [address] 07/12/2024 Cristoferreyna Hilario Type 2 diabetes mellitus with diabetic polyneuropathy E11.42 ; Tinea unguium B35.1 ; Other hammer toe(s) (acquired), right foot M20.41 ; Other hammer toe(s) (acquired), left foot M20.42 and Neuropathic ulcer of right foot with fat layer exposed L97.[address] [address] 10/18/2024 Cristofer Hilario Type 2 diabetes mellitus with diabetic polyneuropathy E11.42 ; Tinea unguium B35.1 and Neuropathic ulcer of right foot with fat layer exposed L97.[address] [address] 01/24/2025 Cristofer Hilario Type 2 diabetes mellitus with diabetic polyneuropathy E11.42 ; Tinea unguium B35.1 and Neuropathic ulcer of right foot with fat layer exposed L97.[address] [address] 01/24/2025 Cristofer Hilario Assessments Encounter Date Diagnosis [...] X ray : Foot, right 3V 04/13/2022 57750-TDYBMUB NAIL, 6 OR MORE 08/29/2022 04988-ICHZLDB NAIL, 6 OR MORE 03/02/2022 25002-AUDYWMB NAIL, 6 OR MORE 11/02/2022 85901-GFBXWOX NAIL, 6 OR MORE 02/23/2023 09791-YDBKLEY NAIL, 6 OR MORE 05/24/2021 65188-PLBRYKL NAIL, 6 OR MORE 08/02/2021 95480-WFVAKVF NAIL, 6 OR MORE 10/11/2021 13605-GZFFKFB NAIL, 6 OR MORE 12/22/2021 57275-HNWYHTL NAIL, 6 OR MORE 11/18/2019 75567-MDPXGOP NAIL, 6 OR MORE 02/03/2020 22413-ARWPPES NAIL, 6 OR MORE 06/01/2020 19291-DKHCWMZ NAIL, 6 OR MORE 08/10/2020 68646-CXFPLII NAIL, 6 OR MORE 10/19/2020 73127-NUVXPSJ NAIL, 6 OR MORE 12/28/2020 65127-COKLSXF NAIL, 6 OR MORE 03/15/2021 79746-PEYNXBZ NAIL, 6 OR MORE 05/16/2023 52364-KRAXTUJ NAIL, 6 OR MORE 07/28/2023 19537-HIBRNBF NAIL, 6 OR MORE 10/06/2023 07420-FHLUYNO NAIL, 6 OR MORE 04/05/2024 64729-TNZIAZT NAIL, 6 OR MORE 07/12/2024 72258-CFWKZED NAIL, 6 OR MORE 10/18/2024 49648-HJOEXHC NAIL, 6 OR MORE 01/24/2025 28444-ETVCUCX NAIL, 1-5 08/12/2019 29002- Debride <25 sq cm 06/01/2020 85857- Debride <25 sq cm 02/03/2020 50136- Debride <25 sq cm 04/13/2022 25679-MSGQEJL SKIN/TISSUE 07/12/2024 22023-EMQLVSM SKIN/TISSUE 01/24/2025 11684-RPBOLKS SKIN/TISSUE 10/18/2024 35279-UVOLZVV SKIN/TISSUE 05/16/2023 12290-GSDX SKIN LESIONS, OVER 4 05/16/20 58454-FUCI SKIN LESIONS, OVER 4 07/28/19 81502-NOQP SKIN LESIONS, OVER 4 04/05/20 05843-SPTK SKIN LESIONS, OVER 4 10/06/19 63324-XLOR SKIN LESIONS, OVER 4 10/19/19 94669-VZNP SKIN LESIONS, OVER 4 01/25/20 79731-OYTJ SKIN LESIONS, OVER 4 07/12/19 52975-ELUA SKIN LESIONS, OVER 4 02/03/20 51617-YJJA SKIN LESIONS, OVER 4 06/01/20 24331-DUAL SKIN LESIONS, OVER 4 11/18/19 36070-IOHD SKIN LESIONS, OVER 4 03/15/20 90989-TZKF SKIN LESIONS, OVER 4 12/29/19 52173-WAVJ SKIN LESIONS, OVER 4 10/20/19 16956-RXHZ SKIN LESIONS, OVER 4 08/10/19 17686-BODN SKIN LESIONS, OVER 4 12/23/19 92856-QSFP SKIN LESIONS, OVER 4 10/12/19 34306-XVXJ SKIN LESIONS, OVER 4 08/02/19 10183-GMMX SKIN LESIONS, OVER 4 05/24/20 71879-MCBC SKIN LESIONS, OVER 4 02/24/20 15625-WWAL SKIN LESIONS, OVER 4 11/03/19 89726-JWTT SKIN LESIONS, OVER 4 03/02/20 73716-VZDM SKIN LESIONS, OVER 4 08/30/19 60913-ZZZC SKIN LESIONS, 2 TO 4 08/12/19 43076-Nlge. Subungual Hematoma 3 Next Appt Details Provider Name:Cristofer Hilario , 05/02/2025 12:00:00 PM, [address] [place], [address], Insurance Providers Payer Name Payer Address Payer Phone Subscriber Number Group Number Insured Name Patient Relationship to Insured Coverage Start Date Coverage End Date [facility] CCA [employer] Claims [address] [facility] ALYSA Payne [phone] [id number] Dora Fernandez Self - patient is the [...] Amputation, T6, T7 Hospitalization History Reason Date(Month/Year) [facility]24
== END 2025-04-17 10:17 | disposition home or self-care (01) ==
LOC: HO.HGS 09:44
PROVIDERS: PCP Internal Medicine; Visit Provider Physician Assistant Surgical
DX: Z89.421 Acquired absence of other right toe(s) (principal)
CPT/HCPCS: 99024

== ENCOUNTER → 2025-04-17 09:43 | Outpatient (BNVA) | payer OTHER, SELFPAY | PROVIDERS: PCP Internal Medicine; Visit Provider Physician Assistant Surgical | DX: Z48.01 Encounter for change or removal of surgical wound dressing (principal); Z89.421 Acquired absence of other right toe(s) | CPT/HCPCS: 99212 ==

== ENCOUNTER 2025-05-05 10:21 | Outpatient (AMB) | payer OTHER, SELFPAY ==
--- NOTE | 2025-05-05 10:28 | MHC.OFFVIS ---
Vital Signs 05/05/25 10:40 Height 5 ft 9 in Weight 348 lb 5.286 oz BMI 51.4 BP 98/53 L Blood Pressure Location Lt brachial Position Sitting Pulse 85 Intake Visit Reasons: 3wk s/p amputation of 5th Rt toe Intake Note: Patient is seen in office for 3 weeks follow up visit, post amputation of the 5th toe, right foot at the mid metatarsal level. Patient c/o: wound center once a week, doing wet to dry and is awaiting a prior authorization to start the wound vac, admits to increase yellow/mucus discharge, changing dressing at home twice a day with the wet to dry () Continuing Education Instructor Required: No Accompanied by: Daughter Allergies No Known Allergies Allergy (Unknown, Verified 05/05/25 10:39) HPI HPI 3wk s/p amputation of 5th Rt toe: Details: Doing better, continue to follow up with wound care who did another debridement and removed the portion of exposed bone that was seen at previous visit. Currently awaiting prior authorization for wound VAC. She has some continued pain requiring narcotics. Daughter is present who was doing most of the wound care. States overall is looking better but there is still a lot of discharge on the more proximal aspect of the wound. She has been continuing with wet-to-dry dressings now 2 times daily she thought this was helping more. Denies fevers at home. [facility] Medical History Osteomyelitis of toe of right foot Foot ulcer, right Wound of foot Toe ulcer due to DM Arm swelling Restrictive lung disease Dyspnea on exertion Morbid obesity Gallstones Obesity due to excess calories Chronic kidney disease, stage 3 Charcot foot due to diabetes mellitus Depression Vitamin D deficiency Hyperlipidemia LDL goal <100 Hypertension Diabetic polyneuropathy Type 2 diabetes mellitus with chronic kidney disease Surgical History Hx of colonoscopy History of partial ray amputation of third toe of right foot Hx of wisdom tooth extraction History of partial amputation of toe (2018) History of total hysterectomy with bilateral salpingo-oophorectomy (BSO) Family History Father Type 2 diabetes mellitus Mother Type 2 diabetes mellitus Diverticulitis Hypertension Social History Household Members: Family Household Members Other:: , mother Housing: Condominium Are you a primary career technical supervisor to a significant other at home: No Do you presently have visiting nurse or other home services: No Alcohol intake: former Comment: Counts correct Patient Tobacco Use Status: Never used Tobacco service: No Physical Exam Vital Signs: Last Vital Signs Pulse 85 05/05/25 10:40 BP 98/53 L 05/05/25 10:40 BMI result Body Mass Index 51.4 Const General: comfortable and no acute distress Orientation/consciousness: patient oriented x3 Neuro General: patient oriented x3 Extrem Other: Right lateral foot amputation site. Small area of tracking on the distal end of wound no palpable bone. Moderate amounts of slough on the proximal aspect of the wound good granulation tissue on the wound bed Assessment & Plan Assessment & Plan (1) Status post amputation of toe of right foot: Comment: Fourth and 5th toe. Code(s): Z89.421 - Acquired absence of other right toe(s) Category: Surgical Plan 55 year old female who amputation of the right fifth toe at the mid metatarsal level on 04/01/25 for osteomyelitis of right fifth toe. She was seen after our last appointment together for concern of tunneling of the wound and palpable bone. States that wound care has done another debridement and removed with the area of palpable bone. Now she is awaiting prior authorization for wound VAC. Overall things have been getting better, wound has decreased in size it continues to have a good amount of drainage on the dressings which are changed twice daily wet-to-dry dressings. She does still have pain on the inside aspect of her right lower extremity. However this was minimally tender to palpation, we will hold off on adding narcotics to this for now unless this becomes unbearable. On exam the wound appears improved, lots of granulation tissue on the wound bed. There was a moderate amount of slough on the proximal aspect of the wound which I gently debrided with gauze. On the distal end there was a small area the tract about a cm deep but there was no area of palpable bone. The inferior aspect of the wound border may need some debridement but we will defer to Wound Care for their recommendations going forward. It does not appear acutely infected at this time. Will change continue with twice daily wet to dry saline soaked fluff followed by dry fluffs, abd dressing and kerlix wrap, rosa. Recommend changing the dressing daily and as needed. Continue with home VNA and follow up at the wound care center. She will follow up in 2-3 weeks for re-evaluation can call to be seen sooner with any concerns Coding Level of Care Code Est Pt Level 4 (57022) Diagnoses Status post amputation of toe of right foot Z89.421
[2025-05-05 10:40] VITALS: BP 98/53; PULSE 85; BMI 51.4
--- OUTSIDE RECORDS SUMMARY | 2025-05-05 21:21 | XMS_ITS | Data Portability ---
Author Organization [place] [employer] [facility] Address [address] [place] [id number] Care Team Providers Care Retail Assistant Manager Name Role Phone Unavailable Referring Provider Assessment Encounter Date Assessment Date Assessment LastModified by Organization Details LastModified Time 01/03/2023 01/03/2023 I provided real -time medical direction via phone for this encounter, and was available for additional phone based assistance as needed. I have reviewed and agree with the Assessment and Plan as documented by the Mannequin Decorator. Patient given the opportunity to ask questions. Advised if develops CP/severe SOB/turning blue/uncontrolle d n/v/d or black/bloody emesis or stool/ AMS/ syncope/redness extending up the leg or high fever to call 911- verbalized understanding of instructions Not available 01/04/2023 10:40:07 Plan of Treatment Reminders Order Date Submit Date Provider Last Modified By Organization Details Last Modified Time Details Appointments None recorded. Lab BMP, serum or plasma 2022 023 [email or web address], [phone] 3 13:54:32 glucose, fingerstick , blood 2022 023 [email or web address], [phone] 3 13:16:40 Referral None recorded. Procedures None recorded. Surgeries None recorded. Imaging None recorded. Medication Orders sodium chloride 0.9 % intravenous solution 2022 023 [email or web address] 0 Not available 3 13:16:40 bacitracin 500 unit/gram topical ointment 2022 023 [facility], [address] [place] [address], [phone], 3 12:54:15 bacitracin 500 unit/gram topical ointment 2022 023 [email or web address] 0 [facility], [address] [facility], [place], [place], [phone], 3 13:54:32 Patient TargetsNo targets recorded. Patient InstructionsNo instructions recorded. Reason for Referral None Reported. Results Created Date Observation Date Name Description Value Unit Range Abnormal Flag Note LastModifiedBy Organization Detail LastModifiedTime 01/04/2001/03/2023 BMP, serum or plasm a BUN 18 Not Available [facility] - [facility] [address], [address] [place] [address] 01/03/2023 13:17:08 01/04/20 23 01/03/2023 BMP, serum or plasm a Ca I hanh 1.12 Not Available Main - [address], [address] [place] [address] 01/03/2023 13:17:08 01/04/2001/03/2023 BMP, serum or plasm a CI- 100 Not Available [facility] - [facility] [address], [address] [place] [address] 01/03/2023 13:17:08 01/04/20 23 01/03/2023 BMP, serum or plasm a CRE 1 Not Available [facility] - [facility] [address], [phone] 01/03/2023 13:17:08 01/04/20 23 01/03/2023 BMP, serum or plasm a GLU 439 Not Available [facility] - [facility] [address], [phone] 01/03/2023 13:17:08 01/04/20 23 01/03/2023 BMP, serum or plasm a K+ 4.6 Not Available [facility] - [facility] [address], [address] [place] [address] 01/03/2023 13:17:08 01/04/20 23 01/03/2023 BMP, serum or plasm a Na+ 136 Not Available Main - [facility] [address], [phone] 01/03/2023 13:17:08 01/04/2001/03/2023 BMP, serum or plasm a tCO2 27 Not Available [facility] - [facility] [address] [place] [address], [phone] 01/03/2023 13:17:08 01/04/2001/03/2023 gluco ana fernandez, blood Blood Glucose: mg/dl 515 Not Available [facility] - [facility] [address] [place] [address], [phone] 01/03/2023 13:06:57 Result Notes None recorded. Medical [...] Address Organization Details Last Updated DateTime 01/03/2023 075370.37 g Ana Springer [address] [facility],[address] [facility], [place], [phone], [place] [facility] [place] 01/03/2023 13:00:08 Date Recorded Oxygen saturation Oxygen saturation in Arterial blood by Pulse oximetry Respiratory rate Body temperature Heart rate Systolic And Diastolic Provider Name and Address Organization Details Last Updated DateTime 3 96 % 96 % 18 /min 98.2 [degF] 78 /min 140/94 mm[Hg] Not Available [employer] [facility] 3 12:56:03 Social History None recorded. Functional Status None recorded. Mental Status None recorded. Family History Nothing Reported. Medical History No medical history recorded. Gynecological HistoryNo gynecological history recorded. Obstetrics History GPAL:G 0 P 0 0 0 0 Past Encounters Encounter ID Performer Location Encounter Start Date Encounter Closed Date Diagnosis/Indication Diagnosis SNOMED-CT Code Diagnosis ICD10 Code Diagnosis IMO Codes Diagnosis Note [id number] Cinthya Bowers MD [facility] - [facility] [address] [place] [phone] 01/03/2023 12:55:53 01/04/2023 09:10:33 Osteomyelitis 77835084 M86.9 w/ open wound 4 th toe- -patient does not have a wound care appointmen t until 01/09/2023 and she has an appointmen t with her PCP 01/10. They could not get into see a photocomposing machine operator until February- advised to discuss with [...] loose gauze dressing twice a day. Hyperglycemia [id number] R 73.9 stay well hydrated w/ SF [...] Weller Member ID Guarantor Name 08/13/2023 1 [facility] - DOS ON OR AFTER 2022 - DUAL ELIGIBLE - [facility] OPTIONS AND ONE C[facility] (MEDICARE REPLACEMENT/AD VANTAGE - HMO) Dora Fernandez [id number] Dora Fernandez Notes Date Note Type Note Provider Name and Address Organization Details Recorded Time 01/03/2023 text/html ROS as noted in the HPI HPI: Patient HX: Anemia,HTN, Obesity........... .................. .................. .................. .................. .................. .................. .................. .... CRC Nursing Assessment: Comments: CRC RN did not require any additional information to process this visit. .................. .................. .................. .................. .................. .................. .................. ............... Mannequin Decorator Note From Gabriella Agrawal: Community Mannequin Decorator Curt Agrawal CCA1 dispatched to a [facility] for a 52 yof in need of wound care/assessment. Upon arrival, the pt was ambulatory w/ a UVALDO wagoner X4, in no apparent distress. Her daughter/electrical equipment tester translated for her (Wolof speaking only). She stated that she noticed [...] assessed and bandaged the toe prior to [facility] first of the initial injury, the second the day of [facility] visit. [facility] consulted; pt was given clear [...] was informed she could not get a photocomposing machine operator appointment until Monday. She has an appointment with wound care outpatient on 01/09 and an appointment with her PCP on 01/10/2023 Cinthya Bowers MD [address] [place] [address],[address], [place], [phone], RENEE - SAVO, SATHYA 01/04/2023 10:42:10 OBGyn Episode No OBEpisode recorded.
== END 2025-05-05 11:04 | disposition home or self-care (01) ==
LOC: HO.HGS 10:21
PROVIDERS: PCP Internal Medicine
DX: Z89.421 Acquired absence of other right toe(s) (principal)
CPT/HCPCS: 99024

== ENCOUNTER → 2025-05-05 10:21 | Outpatient (BNVA) | payer OTHER, SELFPAY | PROVIDERS: PCP Internal Medicine | DX: Z98.890 Other specified postprocedural states (principal); Z89.421 Acquired absence of other right toe(s) | CPT/HCPCS: 99212 ==

== ENCOUNTER 2025-05-27 10:58 | Outpatient (AMB) | payer OTHER, SELFPAY ==
--- NOTE | 2025-05-27 11:23 | A.OFFVIS_ITS ---
Vital Signs 3 05/27/25 11:24 Height 5 ft 9 in Weight 348 lb BMI 51.4 BP 99/50 L Blood Pressure Location Lt brachial Position Sitting Respiration 18 Pulse 81 Pulse Source Pulse Oximeter Temp 97.3 F Temp Source Temporal Artery Scan Pulse Oximetry (%) 96 Oxygen Delivery Method Room Air Intake Visit Reasons: 3wk s/p amputation of 5th Rt toe Radio Broadcaster Required: Yes Radio Broadcaster Services: Radio Broadcaster Offered & Declined Radio Broadcaster Name: Daughter Accompanied by: Daughter Allergies No Known Allergies Allergy (Unknown, Verified 05/27/25 11:29) HPI HPI 3wk s/p amputation of 5th Rt toe: Details: Doing well, patient's daughter axis agronomy specialist for this appointment. She has been continuing dressing changes up to 3 times per day, continues to have visiting nurses, also following at Wound Care. She has appointment on Monday for possible wound VAC initiation. They have started using a compression stocking to help with swelling of the area. There was an instance where her foot was very swollen but this improved with compression stockings and elevation. Denies fevers chills. Drainage slowly decreasing. Has to be cautious with wet-to-dry dressings as it has been keeping the surrounding skin outside of the wound border very wet. [facility] Medical History (Updated 05/26/25 @ 14:11 by JESSE Hills) Osteomyelitis of toe of right foot Foot ulcer, right Wound of foot Toe ulcer due to DM Arm swelling Restrictive lung disease Dyspnea on exertion Morbid obesity Gallstones Obesity due to excess calories Chronic kidney disease, stage 3 Charcot foot due to diabetes mellitus Depression Vitamin D deficiency Hyperlipidemia LDL goal <100 Hypertension Diabetic polyneuropathy Type 2 diabetes mellitus with chronic kidney disease Surgical History (Updated 05/26/25 @ 14:11 by JESSE Hills) Amputation of toe of right foot (~04/01/25) Hx of colonoscopy History of partial ray amputation of third toe of right foot Hx of wisdom tooth extraction History of partial amputation of toe (2018) History of total hysterectomy with bilateral salpingo-oophorectomy (BSO) Family History Father Type 2 diabetes mellitus Mother Type 2 diabetes mellitus Diverticulitis Hypertension Social History Household Members: Family Household Members Other:: , mother Housing: Condominium Are you a primary career center advisor to a significant other at home: No Do you presently have visiting nurse or other home services: No Alcohol intake: former Comment: Counts correct Patient Tobacco Use Status: Never used Tobacco service: No Physical Exam Vital Signs: Last Vital Signs Temp 97.3 F 05/27/25 11:24 Pulse 81 05/27/25 11:24 Resp 18 05/27/25 11:24 BP 99/50 L 05/27/25 11:24 Pulse Ox 96 05/27/25 11:24 Oxygen Delivery Method Room Air 05/27/25 11:24 BMI result Body Mass Index 51.4 Const General: comfortable and no acute distress Orientation/consciousness: patient oriented x3 Neuro General: patient oriented x3 Extrem Other: Right lateral foot amputation site. Wound base primarily granulation tissue. Wound border slightly macerated, wet. Minimal slough and drainage. No further tracking Assessment & Plan Assessment & Plan (1) Status post amputation of toe of right foot: Comment: Fourth and 5th toe. Code(s): Z89.421 - Acquired absence of other right toe(s) Category: Surgical Plan 55 year old female who amputation of the right fifth toe at the mid metatarsal level on 04/01/25 for osteomyelitis of right fifth toe. She is doing well, the wound is improving significantly since last visit. Her daughter continues to assist with dressing changes, 2-3 times daily. States he has been going well. They have added compression stocking and had been elevating the foot as she is getting some edema of the foot. This is overall improved, appears at baseline today. She continues to follow with wound care, she has an appointment this Monday where she may initiate wound VAC. She is denying pain. Overall the wound is improving, decreasing in size, less drainage overall. On exam the wound appears improved, the entirety of the wound bed is granulation tissue. There was some small areas with slough, minimal drainage noted. There was no further tracking noted. No areas requiring debridement. Recommended continue with her current dressing change regimen. Recommended wet-to-dry, instructed to try her best to keep the wet dressing on the wound bed and not the surrounding skin some of this has become macerated. She is also changing dressings more frequently to combat this. It does not appear acutely infected at this time. Continue with home VNA and follow up at the wound care center. She will follow up in one-month for re-evaluation can call to be seen sooner with any concerns Coding Level of Care Code Global (21808) Diagnoses Status post amputation of toe of right foot Z89.421
[2025-05-27 11:24] VITALS: BP 99/50; PULSE 81; RESP 18; TEMP 36.3; O2SAT 96; BMI 51.4
== END 2025-05-27 11:55 | disposition home or self-care (01) ==
LOC: HO.HGS 10:59
PROVIDERS: PCP Internal Medicine
DX: Z89.421 Acquired absence of other right toe(s) (principal)
CPT/HCPCS: 99024

== ENCOUNTER → 2025-05-27 10:58 | Outpatient (BNVA) | payer OTHER, SELFPAY | PROVIDERS: PCP Internal Medicine | DX: Z47.89 Encounter for other orthopedic aftercare (principal); Z89.421 Acquired absence of other right toe(s) | CPT/HCPCS: 99212 ==